=== PATIENT | male | born 1975 | race Caucasian/White ===

== ENCOUNTER 2018-01-11 11:33 | Inpatient (IN) | payer BC ==
[~2018-01-11] VITALS: Ht 190.5 cm; Wt 110.8 kg
[2018-01-11] VITALS (8 sets, daily range): BP systolic 105–173; BP diastolic 64–94
[~2018-01-11 11:33] MED LIST: AMLO10TA6 PO; BYSTOLIC10 MG PO; HYDR-971 PO; IBUP-1027 PO; OMEP20TA63 PO; SULF1TAB24 PO
[2018-01-11 12:28] LABS: BILIRUBIN,URINE NEGATIVE (NEG); CLARITY,URINE CLEAR; COLOR,URINE YELLOW; NITRITE,URINE NEGATIVE (NEG); PH,URINE 5.5; PROTEIN,URINE NEGATIVE (NEG-TRACE)
[2018-01-11 12:31] LABS: BARBITURATES NEG (NEG); BENZODIAZEPINES NEG (NEG); CANNABINOIDS POS (NEG); COCAINE NEG (NEG); METHADONE NEG (NEG); OPIATES NEG (NEG); PHENCYCLIDINE NEG (NEG)
[2018-01-11 12:34] LABS: BASO # 0.2 x10^3/uL (0.0-0.2); BASO % 2 % (0-3); EOS # 0.1 x10^3/uL (0.0-0.7); EOS % 1 % (0-3); HEMATOCRIT 36.7 % (39.0-53.0); LYMPH # 1.3 x10^3/uL (1.0-4.8); LYMPH % 13 % (24-48); MEAN CORPUSCULAR VOLUME 94 fL (79-100); MONO # 0.5 x10^3/uL (0.0-1.1); MONO % 5 % (0-9); NEUT # 8.4 x10^3uL (1.8-7.7); NEUT % 81 % (31-73); PLATELET COUNT 297 x10^3/uL (140-400); RED BLOOD COUNT 3.89 x10^6/uL (4.30-5.70); WHITE BLOOD COUNT 10.5 x10^3/uL (4.0-11.0)
[2018-01-11 12:42] LABS: BACTERIA,URINE 0 /HPF (0-FEW)
[2018-01-11 12:43] LABS: AMPHETAMINE/METHAMPHETAMINE NEG (NEG)
[2018-01-11 12:47] LABS: CALCIUM 8.5 mg/dL (8.5-10.1); CREATININE 0.9 mg/dL (0.7-1.3); GFR 92.1; POTASSIUM 4.3 mmol/L (3.5-5.1)
[2018-01-11 12:52] LABS: ALBUMIN 2.9 g/dL (3.4-5.0); ALBUMIN/GLOBULIN RATIO 0.8 (1.0-1.7); TOTAL BILIRUBIN 1.5 mg/dL (0.2-1.0); TOTAL PROTEIN 6.4 g/dL (6.4-8.2)
[2018-01-11 12:57] LABS: HEMOGLOBIN 11.9 g/dL (13.0-17.5)
[2018-01-11 12:58] LABS: MEAN CORPUSCULAR HEMOGLOBIN 31 pg (25-35); MEAN CORPUSCULAR HGB CONC 32 g/dL (31-37)
[2018-01-11] MEDS ORDERED: IV DEXTROSE 5% - 0.9 % NACL 1,000 ML IV ONE (13:00)
--- NOTE | 2018-01-11 13:00 | RAD ---
PQRS Compliance Statement: One or more of the following individualized dose reduction techniques were utilized for this examination: 1. Automated exposure control 2. Adjustment of the mA and/or kV according to patient size 3. Use of iterative reconstruction technique CT HEAD WITHOUT CONTRAST History: audible/ visual hallucinations Comparison: None. Procedure: Axial images are obtained of the head from the skull base through the vertex without IV contrast. Findings: The ventricles and sulci are normal for the patient's age. No mass-effect, midline shift, hemorrhage, extra-axial fluid collection, or obvious acute infarction is identified. Basilar cisterns are patent. Bone windows demonstrate no acute calvarial abnormality. Mild mucosal thickening inferior left maxillary sinus. The other visualized paranasal sinuses are clear. Mastoid air cells are well aerated. IMPRESSION: No acute intracranial abnormality. Electronically signed by: Richard Alcaraz MD (01/11/2018 12:56 PM) [facility]
--- NOTE | 2018-01-11 13:09 | RAD ---
CHEST PA LATERAL History: AMS. chest pain Comparison: None. Findings: Motion artifact on the lateral view. The left costophrenic angle is excluded on the frontal view. The cardiomediastinal silhouette is normal. Pulmonary vasculature is engorged. There is small interstitial opacity in the right midlung. No pleural effusion or pneumothorax is seen. There is no acute bone abnormality. IMPRESSION: 1. Right midlung interstitial opacity. 2. Mild pulmonary vascular congestion. Electronically signed by: Rihcard Alcaraz MD (01/11/2018 1:05 PM) [facility]
--- NOTE | 2018-01-11 13:17 | EKG ---
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
[2018-01-11] MEDS ORDERED: IV NORMAL SALINE 1000ML BAG 1,000 ML IV ONE ×2 (13:30)
[2018-01-11] MEDS ORDERED: ASPIRIN CHEWABLE 81 MG TABLET. PO ONE (13:45)
--- NOTE | 2018-01-11 16:16 | EKG ---
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
[2018-01-11] MEDS: MULTIVIT INFUSN,ADULT 4,VIT K 10 ML, THIAMINE INJ 100 MG, FOLIC ACID INJ 1 MG in IV NOR... IV SCH (16:31)
[2018-01-11] MEDS ORDERED: DEXMEDETOMIDINE 200 MCG in IV NORMAL SALINE 50ML 48 ML IV PRN ×2 (16:45→18:38)
[2018-01-11] MEDS ORDERED: ATROPINE 0.5 MG/5 ML DISP.SYRINGE. IV PRN (16:45)
[2018-01-11] MEDS ORDERED: IV NORMAL SALINE 500ML BAG 500 ML IV PRN (16:45)
--- NOTE | 2018-01-11 17:46 | HP ---
ADMIT DATE: 01/11/2018 CHIEF COMPLAINT: Mental status change. HISTORY OF PRESENT ILLNESS: The patient is a pleasant middle-aged white male who apparently has been drinking a fifth of whiskey a day for the past few weeks. He presented to the ER for evaluation. He is having hallucinations. He is also noted to have an anion gap, metabolic acidosis consistent with DKA. He also has a bump in his troponin. I have discussed the case with the ER physician. We are going to admit the patient to the ICU and consult Cardiology. Give him alcohol withdrawal protocol and DKA protocol. PAST MEDICAL HISTORY: Probable alcoholism, anxiety, GERD, hypertension, knee replacement, neck surgery, wisdom teeth extraction. ALLERGIES: None. FAMILY HISTORY: Coronary disease. SOCIAL HISTORY: He drinks. I am not sure if he smokes or take drugs. MEDICATIONS: Reviewed, please refer to the MRAD. REVIEW OF SYSTEMS: Unable to obtain. The patient is way too confused. PHYSICAL EXAMINATION: VITAL SIGNS: Temperature afebrile, pulse 83, respirations 28, blood pressure 147/92. GENERAL: He is alert, but very confused, mumbling. HEART: Normal S1, S2, tachycardic at times. LUNGS: Clear. ABDOMEN: Soft and obese. EXTREMITIES: Trace edema. SKIN: He is very diaphoretic. ENDOCRINE: No thyromegaly. LYMPHATICS: No cervical nodes. HEMATOPOIETIC: No bruising. LABORATORY DATA: White count 10, hemoglobin 12, platelets 297. Electrolytes: Sodium 129, potassium 4.3, chloride 91, bicarbonate 20, BUN 7, creatinine 0.9. Glucose 416, we have got it down to 349 now after some insulin. Troponin 0.089. AST is high at 44 consistent with his drinking issues. Albumin low at 2.9. EKG shows sinus rhythm with subtle ST changes. Chest x-ray: Right mid lung interstitial opacity, mild pulmonary vascular congestion. ASSESSMENT AND PLAN: Diabetic ketoacidosis, alcohol withdrawal and possible acute myocardial infarction with possible heart failure. The patient will be admitted. We will start alcohol withdrawal protocol and DKA protocol. ICU monitoring. Consult cardiology. Serial enzymes, serial EKGs. Home meds. PROGNOSIS: Guarded. DREA SORENSON DO DR: IBETH/romi JOB#: [id number] / [id number]
[2018-01-11] MEDS: HALOPERIDOL LACTATE 5 MG/ML VIAL. IVP PRN (18:14)
[2018-01-11] MEDS ORDERED: diphenhydrAMINE 50 MG/ML VIAL IVP PRN (18:15)
[2018-01-11] MEDS ORDERED: LORazepam 1 MG TABLET PO PRN ×2 (18:15)
[2018-01-11] MEDS ORDERED: PROPOFOL 100 ML IV ONE (18:43)
[2018-01-11] MEDS ORDERED: SUCCINYLCHOLINE 200 MG/10 ML VIAL. ONE ×2 (18:44→19:00)
[2018-01-11] MEDS ORDERED: OLANZapine IM 10 MG VIAL. IM ONE (18:45)
[2018-01-11] MEDS ORDERED: MORPHINE SULFATE 2 MG/ML VIAL. IV PRN (18:45)
[2018-01-11] MEDS ORDERED: MORPHINE SULFATE 4 MG/ML VIAL. IV PRN (18:45)
[2018-01-11] MEDS ORDERED: PROPOFOL 100 ML IV PRN ×2 (18:45→19:00)
[2018-01-11] MEDS ORDERED: fentaNYL PF VIAL 100 MCG/2 ML VIAL IV PRN ×2 (18:45)
[2018-01-11] MEDS ORDERED: HYDROmorphone 2 MG/ML VIAL IV PRN ×2 (18:45)
[2018-01-11] MEDS ORDERED: EPINEPHrine SYRINGE 1 MG/10 ML SYRINGE ONE ×2 (18:56→19:00)
[2018-01-11] MEDS ORDERED: PROPOFOL 10 MG/ML (100ML) VIAL. IV ONE (19:00)
[2018-01-11] MEDS ORDERED: VECURONIUM BOLUS 10 MG VIAL. IV ONE ×2 (19:00→19:02)
[2018-01-11 19:41] LABS: BASE EXCESS ABG -5 mmol/L (-3-3); HCO3 ABG 24 mmol/L (21-28); PO2 ABG 86 mmHg (75-108); SAT O2 ABG 95 % (92-99)
[2018-01-11] MEDS ORDERED: PIP/TAZO PER PHARMACY MC PRN (20:15)
--- NOTE | 2018-01-11 20:50 | RAD ---
KUB, PORTABLE CHEST 1V Clinical Indication: OG PLACEMENT, post intubation Comparison: Two-view chest, earlier same day. Findings: There is endotracheal tube, tip is at the level of the clavicles. Enteric tube extends into the stomach, tip is outside of [id number]. There is a paucity of bowel gas in the upper abdomen, decreasing sensitivity. The lower abdomen is not imaged. Cardiac size is normal. Pulmonary vascular congestion has worsened. There are new right suprahilar and left infrahilar airspace opacities. There are low lung volumes. No pleural effusion or pneumothorax is appreciated. IMPRESSION: 1. Endotracheal and enteric tubes in appropriate position. 2. Interval worsening of pulmonary vascular congestion and new right suprahilar and left infrahilar airspace opacities. Electronically signed by: Richard Alcaraz MD (01/11/2018 8:47 PM) [facility]
--- NOTE | 2018-01-11 20:50 | RAD ---
KUB, PORTABLE CHEST 1V Clinical Indication: OG PLACEMENT, post intubation Comparison: Two-view chest, earlier same day. Findings: There is endotracheal tube, tip is at the level of the clavicles. Enteric tube extends into the stomach, tip is outside of [id number]. There is a paucity of bowel gas in the upper abdomen, decreasing sensitivity. The lower abdomen is not imaged. Cardiac size is normal. Pulmonary vascular congestion has worsened. There are new right suprahilar and left infrahilar airspace opacities. There are low lung volumes. No pleural effusion or pneumothorax is appreciated. IMPRESSION: 1. Endotracheal and enteric tubes in appropriate position. 2. Interval worsening of pulmonary vascular congestion and new right suprahilar and left infrahilar airspace opacities. Electronically signed by: Richard Alcaraz MD (01/11/2018 8:47 PM) [facility]
[2018-01-11] MEDS ORDERED: VANCOMYCIN 2 GM in IV NORMAL SALINE 500ML BAG 500 ML IV ONE (21:00)
[2018-01-11] MEDS ORDERED: DEXTROSE 50% 25 GM / 50ML DISP.SYRIN. IV PRN (21:00)
[2018-01-11 21:18] LABS: FIO2 ABG 100; PCO2 ABG 62 mmHg (35-46)
[2018-01-11 21:49] LABS: ALBUMIN 2.7 g/dL (3.4-5.0); ALBUMIN/GLOBULIN RATIO 0.8 (1.0-1.7); CALCIUM 7.7 mg/dL (8.5-10.1); CREATININE 0.8 mg/dL (0.7-1.3); GFR 105.5; MAGNESIUM 1.5 mg/dL (1.8-2.4); PHOSPHORUS 2.6 mg/dL (2.6-4.7); POTASSIUM 4.3 mmol/L (3.5-5.1); TOTAL BILIRUBIN 0.9 mg/dL (0.2-1.0)
[2018-01-11] MEDS: PIPERACILLIN/TAZOBACTAM 4.5 GM in IV NORMAL SALINE 100ML 100 ML IV SCH (23:31)
[2018-01-11] MEDS: IV NORMAL SALINE 1000ML BAG 1,000 ML IV SCH (23:33)
[2018-01-11] MEDS: ACETAMINOPHEN 650 MG/20.3 ML SOLUTION. PEG PRN (23:39)
[2018-01-12] VITALS (23 sets, daily range): BP systolic 80–143; BP diastolic 49–89
[2018-01-12] MEDS: INSULIN LISPRO 300 UNITS/3 ML INSULN.PEN. SQ SCH ×4 (00:08→17:25)
[2018-01-12] MEDS ORDERED: MAGNESIUM SULFATE 2GM 50 ML IV ONE (01:00)
[2018-01-12] MEDS: MIDAZOLAM 100mg/100ml NS BAG 100 ML IV PRN ×3 (01:15→17:49)
--- NOTE | 2018-01-12 03:37 | RAD ---
EXAM: AP View of the chest DATE: 01/12/2018 3:04 AM INDICATION: Abdominal distension/pain. Respiratory distress COMPARISON: 01/11/2018 FINDINGS: ET tube tip terminates approximately 4 cm above the darius. Heart is mildly enlarged. Aorta is tortuous. Superior mediastinal widening is stable. Bilateral parenchymal airspace opacities diffusely but most prominent in the perihilar and left lung base region with small bilateral pleural effusions may represent pulmonary edema. No pneumothorax. Enteric tube tip projects over the body/antrum of the stomach. No abnormal small or large bowel dilatation. Moderate colonic stool content. No abnormal soft tissue mass effect. Evaluation for free intraperitoneal gas is limited on this supine exam. IMPRESSION: Small bilateral pleural effusions with parenchymal opacities, suspicious for pulmonary edema, stable to borderline progressed. ET tube and enteric tube as above. Electronically signed by: Lencho Cortez MD (01/12/2018 3:34 AM) [facility]
[2018-01-12] MEDS ORDERED: MULT1TAB52 PO (03:44)
[2018-01-12] MEDS ORDERED: [UNRECOGNIZED DRUG - OTHER] (03:44)
[2018-01-12] MEDS ORDERED: DULO20CA PO (03:44)
[2018-01-12] MEDS ORDERED: NEO/5DRO OD (03:44)
[2018-01-12] MEDS ORDERED: TRAM50TA PO (03:44)
[2018-01-12] MEDS ORDERED: BYSTOLIC20 MG PO (03:44)
[2018-01-12] MEDS ORDERED: LANS30CA PO (03:44)
[2018-01-12] MEDS ORDERED: LOSA25TA5 PO (03:44)
[2018-01-12] MEDS ORDERED: MAGN400C PO (03:44)
[2018-01-12] MEDS ORDERED: VALA1000 PO (03:44)
[2018-01-12] MEDS ORDERED: TIZA4TAB PO (03:44)
[2018-01-12] MEDS ORDERED: CALC500T54 PO (03:44)
[2018-01-12] MEDS ORDERED: IV NORMAL SALINE 1000ML BAG 1,000 ML IV ONE (04:30)
[2018-01-12 04:44] LABS: BASO % 0 % (0-3); EOS # 0.1 x10^3/uL (0.0-0.7); EOS % 1 % (0-3); HEMATOCRIT 39.7 % (39.0-53.0); HEMOGLOBIN 13.9 g/dL (13.0-17.5); LYMPH # 0.8 x10^3/uL (1.0-4.8); LYMPH % 15 % (24-48); MEAN CORPUSCULAR HEMOGLOBIN 33 pg (25-35); MEAN CORPUSCULAR HGB CONC 35 g/dL (31-37); MEAN CORPUSCULAR VOLUME 95 fL (79-100); MONO # 0.2 x10^3/uL (0.0-1.1); MONO % 4 % (0-9); NEUT # 4.2 x10^3uL (1.8-7.7); NEUT % 79 % (31-73); PLATELET COUNT 232 x10^3/uL (140-400); RED BLOOD COUNT 4.17 x10^6/uL (4.30-5.70); RED CELL DISTRIBUTION WIDTH 13.4 % (11.5-14.5); WHITE BLOOD COUNT 5.3 x10^3/uL (4.0-11.0)
[2018-01-12 05:02] LABS: CREATININE 1.4 mg/dL (0.7-1.3); GFR 55.3; MAGNESIUM 1.9 mg/dL (1.8-2.4); POTASSIUM 4.4 mmol/L (3.5-5.1)
[2018-01-12] MEDS: PIPERACILLIN/TAZOBACTAM 4.5 GM in IV NORMAL SALINE 100ML 100 ML IV SCH ×3 (05:36→17:14)
[2018-01-12] MEDS: DEXMEDETOMIDINE 200 MCG in IV NORMAL SALINE 50ML 48 ML IV PRN ×12 (05:36→23:11)
[2018-01-12] MEDS: ACETAMINOPHEN 650 MG/20.3 ML SOLUTION. PEG PRN ×2 (05:37→12:34)
[2018-01-12 06:05] LABS: CHOLESTEROL 306 mg/dL (0-200)
[2018-01-12 06:33] LABS: TRIGLYCERIDES 1547 mg/dL (0-150); VLDLC 309 mg/dL (0-40)
[2018-01-12] MEDS: VANCOMYCIN PER PHARMACY MC PRN ×2 (06:33→11:47)
--- NOTE | 2018-01-12 06:52 | PDOC ---
Provider Note Provider Note [id number] acute resp fail ams sepsis abnl cxr abx, see orders JAMES MAC MD Jan 12, 2018 06:52
[2018-01-12] MEDS ORDERED: IV NORMAL SALINE 500ML BAG 500 ML IV ONE (07:00)
[2018-01-12] MEDS: IV NORMAL SALINE 1000ML BAG 1,000 ML IV SCH ×2 (07:25→17:14)
[2018-01-12] MEDS: IPRATRPIUM/ALBUTEROL 0.5/2.5MG 3 ML NEBU. NEB SCH ×4 (07:41→19:48)
--- NOTE | 2018-01-12 07:50 | CONS ---
DATE OF CONSULTATION: 01/12/2018 I was asked to see this 42-year-old gentleman for acute respiratory failure. HISTORY OF PRESENT ILLNESS: The patient is currently on the ventilator and is sedated. All of the information was obtained from nursing staff and chart. He has chronic back pain, went to chiropractor and since then, the patient became very agitated. His father reported heavy alcohol use. The patient has depression and anxiety. He has had hallucination. He was transferred to ICU. He was very combative. He was intubated for airway protection. Currently, he is on the ventilator. He has small amount of ET tube secretion, his temperature is up to 102.9. The last time, I did start him on vancomycin and Zosyn and ID is consulted. PAST MEDICAL HISTORY: Anxiety, gastroesophageal reflux disease, hypertension. The patient has had low blood pressure. He had 2 liters of IV fluids in the Emergency Room. Overnight, he had another liter, his blood pressure this morning 79/50. I am giving him another 500 mL of normal saline. His blood sugar on admission was in 500s. ALLERGIES: No known drug allergies. MEDICATIONS: Currently he is on Versed, fentanyl drip, Precedex drip, vancomycin, Zosyn and insulin. SOCIAL HISTORY: Positive for heavy alcohol use. FAMILY HISTORY: Hypertension. REVIEW OF SYSTEMS: As mentioned as above, I have discussed the patient with RN and RT, other systems otherwise negative. PHYSICAL EXAMINATION: GENERAL: This is an overweight gentleman. VITAL SIGNS: His O2 saturation is 95%, respiratory rate 23, heart rate 94, blood pressure 101/59, temperature 102.9. HEENT: Normocephalic, atraumatic. Pupils equal, round, reactive to light. Nose is clear. He is orally intubated. NECK: There is no JVD, lymphadenopathy or thyromegaly. CARDIOVASCULAR: Regular rate and rhythm. PMI is nondisplaced. CHEST: On inspection, he appears tachypneic. LUNGS: There is bibasilar crackles, dullness at the bases. ABDOMEN: Distended, diminished bowel sounds. EXTREMITIES: There is no edema. LYMPHATICS: There is no lymphadenopathy. NEUROLOGIC: He is sedated. SKIN: Warm. LABORATORY DATA: I reviewed the following lab data. WBC 5.3, hemoglobin 13.9, platelet 232. Sodium 137, potassium 4.4, chloride 103, CO2 23. Glucose 266 this morning, on admission it was about 500. His BNP is 2253, triglycerides 1547, cholesterol 306. Troponin 0.089. AST 37, ALT 36. Urine drug screen was negative. Alcohol level less than 10. UA was negative. Chest x-ray showed ET tube is in good position, small bilateral pleural effusion and infiltrate was noted. His CT of the head did not show any acute abnormalities. ABG last night, pH 7.2, pCO2 62, pO2 86 on assist control rate of 18, tidal volume 550, PEEP of 5, FiO2 100%. IMPRESSION: 1. Acute respiratory failure. 2. Abnormal chest x-ray? congestive heart failure versus pneumonia versus others. 3. Sepsis ? source. 4. Severe agitation, could be secondary to alcohol withdrawal versus sepsis versus others. 5. Hyperglycemia? etiology. 6. Elevated BNP and troponin ? etiology. Could be secondary to increased work of breathing. 7. History of alcohol abuse. 8. Obesity? obstructive sleep apnea-hypopnea syndrome. 9. Alcohol withdrawal. PLAN AND RECOMMENDATION: 1. Titrate FiO2 to keep O2 saturation 94%. 2. Repeat ABG. Change vent setting per ABG. 3. Start bronchodilator. 4. Agree with Cardiology consultation. 5. Agree with ID consultation. I did start the patient on vancomycin and Zosyn. blood culture was done before antibiotics. 6. Check nasal swab for influenza A and B and urine legionella and Strep pneumoniae antigen. 7. Start Pepcid for stress ulcer prophylaxis. 8. SCDs. We will start him on Lovenox. He may require LP. We will await for Infectious Disease to evaluate the patient. 9. Continue ventilator support until the patient is more stable. 10. I will give him 500 mL of normal saline. 11. Echocardiogram per Cardiology. 12. Control blood sugar. 13. The findings and recommendations were discussed with RN. Thank you very much for allowing me to participate in care of this very nice gentleman. JAMES MAC M.D. : FELIPE/romi JOB#: [id number] / [id number] OL
[2018-01-12 08:15] LABS: INFLUENZA A PATIENT NEGATIVE (NEGATIVE); INFLUENZA B PATIENT NEGATIVE (NEGATIVE)
[2018-01-12] MEDS: FAMOTIDINE 20 MG/2 ML VIAL IVP SCH ×2 (08:45→20:21)
[2018-01-12] MEDS: MULTIVIT INFUSN,ADULT 4,VIT K 10 ML, THIAMINE INJ 100 MG, FOLIC ACID INJ 1 MG in IV NOR... IV SCH (08:45)
[2018-01-12 08:59] LABS: BASE EXCESS ABG -5 mmol/L (-3-3); CORRECTED PCO2 ABG 44 mmHg; CORRECTED PH ABG 7.29; CORRECTED PO2 ABG 100 mmHg; HCO3 ABG 20 mmol/L (21-28); PCO2 ABG 40 mmHg (35-46); PO2 ABG 87 mmHg (75-108); SAT O2 ABG 97 % (92-99)
[2018-01-12] MEDS ORDERED: VANCOMYCIN 1.5 GM in IV NORMAL SALINE 500ML BAG 500 ML IV SCH (09:00)
[2018-01-12 09:01] LABS: FIO2 ABG 50
--- NOTE | 2018-01-12 09:38 | PDOC ---
Infectious Disease Note Vital Sign Vital Signs Vital Signs Date Time Temp Pulse Resp B/P (MAP) Pulse Ox O2 Delivery O2 Flow Rate FiO2 01/12/18 08:00 90 26 92/56 (68) 98 Ventilator 01/12/18 07:00 102.5 102.5 Labs Lab Laboratory Tests Test 01/11/18 12:10 01/11/18 14:27 01/11/18 15:12 01/11/18 15:17 White Blood Count 10.5 x10^3/uL (4.0-11.0) Red Blood Count 3.89 x10^6/uL (4.30-5.70) Hemoglobin 11.9 g/dL (13.0-17.5) Hematocrit 36.7 % (39.0-53.0) Mean Corpuscular Volume 94 fL (79-100) Mean Corpuscular Hemoglobin 31 pg (25-35) Mean Corpuscular Hemoglobin Concent 32 g/dL (31-37) Red Cell Distribution Width 13.0 % (11.5-14.5) Platelet Count 297 x10^3/uL (140-400) Neutrophils (%) (Auto) 81 % (31-73) Lymphocytes (%) (Auto) 13 % (24-48) Monocytes (%) (Auto) 5 % (0-9) Eosinophils (%) (Auto) 1 % (0-3) Basophils (%) (Auto) 2 % (0-3) Neutrophils # (Auto) 8.4 x10^3uL (1.8-7.7) Lymphocytes # (Auto) 1.3 x10^3/uL (1.0-4.8) Monocytes # (Auto) 0.5 x10^3/uL (0.0-1.1) Eosinophils # (Auto) 0.1 x10^3/uL (0.0-0.7) Basophils # (Auto) 0.2 x10^3/uL (0.0-0.2) Urine Collection Type Unknown Urine Color Yellow Urine Clarity Clear Urine pH 5.5 Urine Specific [place] 1.020 Urine Protein Negative mg/dL (NEG-TRACE) Urine Glucose (UA) >=1000 mg/dL (NEG) Urine Ketones (Stick) >=80 mg/dL (NEG) Urine Blood Trace (NEG) Urine Nitrite Negative (NEG) Urine Bilirubin Negative (NEG) Urine Urobilinogen Dipstick 1.0 mg/dL (0.2 mg/dL) Urine Leukocyte Esterase Negative (NEG) Urine RBC 6-10 /HPF (0-2) Urine WBC 1-4 /HPF (0-4) Urine Bacteria 0 /HPF (0-FEW) Sodium Level 129 mmol/L (136-145) Potassium Level 4.3 mmol/L (3.5-5.1) Chloride Level 91 mmol/L (98-107) Carbon Dioxide Level 20 mmol/L (21-32) Anion Gap 18 (6-14) Blood Urea Nitrogen 7 mg/dL (8-26) Creatinine 0.9 mg/dL (0.7-1.3) Estimated GFR (Cockcroft-Gault) 92.1 BUN/Creatinine Ratio 8 (6-20) Glucose Level 416 mg/dL (70-99) Calcium Level 8.5 mg/dL (8.5-10.1) Total Bilirubin 1.5 mg/dL (0.2-1.0) Aspartate Amino Transf (AST/SGOT) 44 U/L (15-37) Alanine Aminotransferase (ALT/SGPT) 47 U/L (16-63) Alkaline Phosphatase 105 U/L (46-116) Troponin I Quantitative 0.089 ng/mL (0.000-0.055) Total Protein 6.4 g/dL (6.4-8.2) Albumin 2.9 g/dL (3.4-5.0) Albumin/Globulin Ratio 0.8 (1.0-1.7) Urine Opiates Screen Neg (NEG) Urine Methadone Screen Neg (NEG) Urine Barbiturates Neg (NEG) Urine Phencyclidine Screen Neg (NEG) Urine Amphetamine/Methamphetamine Neg (NEG) Urine Benzodiazepines Screen Neg (NEG) Urine Cocaine Screen Neg (NEG) Urine Cannabinoids Screen Pos (NEG) Ethyl Alcohol Level < 10 mg/dL (0-10) Urine Ethyl Alcohol Neg (NEG) Glucose (Fingerstick) 337 mg/dL (70-99) 349 mg/dL (70-99) Bedside Troponin I 0.06 ng/ml (<0.08) Test 01/11/18 19:09 01/11/18 19:33 01/11/18 20:00 01/11/18 23:50 O2 Saturation 95 % (92-99) Arterial Blood pH 7.20 (7.35-7.45) Arterial Blood pCO2 at Patient Temp 62 mmHg (35-46) Arterial Blood pO2 at Patient Temp 86 mmHg (75-108) Arterial Blood HCO3 24 mmol/L (21-28) Arterial Blood Base Excess -5 mmol/L (-3-3) FiO2 100 Glucose (Fingerstick) 272 mg/dL (70-99) Sodium Level 133 mmol/L (136-145) Potassium Level 4.3 mmol/L (3.5-5.1) Chloride Level 98 mmol/L (98-107) Carbon Dioxide Level 25 mmol/L (21-32) Anion Gap 10 (6-14) Blood Urea Nitrogen 4 mg/dL (8-26) Creatinine 0.8 mg/dL (0.7-1.3) Estimated GFR (Cockcroft-Gault) 105.5 BUN/Creatinine Ratio 5 (6-20) Glucose Level 347 mg/dL (70-99) Calcium Level 7.7 mg/dL (8.5-10.1) Phosphorus Level 2.6 mg/dL (2.6-4.7) Magnesium Level 1.5 mg/dL (1.8-2.4) Total Bilirubin 0.9 mg/dL (0.2-1.0) Aspartate Amino Transf (AST/SGOT) 37 U/L (15-37) Alanine Aminotransferase (ALT/SGPT) 36 U/L (16-63) Alkaline Phosphatase 91 U/L (46-116) Total Protein 6.0 g/dL (6.4-8.2) Albumin 2.7 g/dL (3.4-5.0) Albumin/Globulin Ratio 0.8 (1.0-1.7) Lactic Acid Level 3.1 mmol/L (0.4-2.0) Test 01/12/18 00:07 01/12/18 04:00 01/12/18 04:30 01/12/18 05:00 Glucose (Fingerstick) 227 mg/dL (70-99) Sodium Level 137 mmol/L (136-145) Potassium Level 4.4 mmol/L (3.5-5.1) Chloride Level 103 mmol/L (98-107) Carbon Dioxide Level 23 mmol/L (21-32) Anion Gap 11 (6-14) Blood Urea Nitrogen 6 mg/dL (8-26) Creatinine 1.4 mg/dL (0.7-1.3) Estimated GFR (Cockcroft-Gault) 55.3 Glucose Level 266 mg/dL (70-99) Lactic Acid Level 0.4 mmol/L (0.4-2.0) Calcium Level 8.0 mg/dL (8.5-10.1) Phosphorus Level 3.0 mg/dL (2.6-4.7) Magnesium Level 1.9 mg/dL (1.8-2.4) Troponin I Quantitative 0.110 ng/mL (0.000-0.055) White Blood Count 5.3 x10^3/uL (4.0-11.0) Red Blood Count 4.17 x10^6/uL (4.30-5.70) Hemoglobin 13.9 g/dL (13.0-17.5) Hematocrit 39.7 % (39.0-53.0) Mean Corpuscular Volume 95 fL (79-100) Mean Corpuscular Hemoglobin 33 pg (25-35) Mean Corpuscular Hemoglobin Concent 35 g/dL (31-37) Red Cell Distribution Width 13.4 % (11.5-14.5) Platelet Count 232 x10^3/uL (140-400) Neutrophils (%) (Auto) 79 % (31-73) Lymphocytes (%) (Auto) 15 % (24-48) Monocytes (%) (Auto) 4 % (0-9) Eosinophils (%) (Auto) 1 % (0-3) Basophils (%) (Auto) 0 % (0-3) Neutrophils # (Auto) 4.2 x10^3uL (1.8-7.7) Lymphocytes # (Auto) 0.8 x10^3/uL (1.0-4.8) Monocytes # (Auto) 0.2 x10^3/uL (0.0-1.1) Eosinophils # (Auto) 0.1 x10^3/uL (0.0-0.7) Basophils # (Auto) 0.0 x10^3/uL (0.0-0.2) [id number]-Type Natriuretic Peptide 2253 pg/mL (0-124) Triglycerides Level 1547 mg/dL (0-150) Cholesterol Level 306 mg/dL (0-200) LDL Cholesterol, Calculated mg/dL (0-100) VLDL Cholesterol, Calculated 309 mg/dL (0-40) Non-HDL Cholesterol Calculated mg/dL (0-129) HDL Cholesterol mg/dL (40-60) Cholesterol/HDL Ratio Test 01/12/18 07:40 01/12/18 08:00 Influenza Type A Antigen Negative (NEGATIVE) Influenza Type B Antigen Negative (NEGATIVE) O2 Saturation 97 % (92-99) Arterial Blood pH 7.33 (7.35-7.45) Arterial Blood pH (Temp corrected) 7.29 Arterial Blood pCO2 at Patient Temp 40 mmHg (35-46) Arterial Blood pCO2 (Temp correct) 44 mmHg Arterial Blood pO2 at Patient Temp 87 mmHg (75-108) Arterial Blood pO2 (Temp corrected) 100 mmHg Arterial Blood HCO3 20 mmol/L (21-28) Arterial Blood Base Excess -5 mmol/L (-3-3) FiO2 50 Objective Assessment Fever Aspiration pneumonia Acute encephalopathy with hallucinations and behavior change Lactic acidosis, improved Heavy alcohol use Hyperglycemia Worsening back pain w/ urinary incontinence prior to admit and was scheduled for open MRI per his mom. h/o epidural abscess w/ neg cultures in August 2016. h/o MRSA Morbid obesity Plan Plan of Care vanc and Zosyn Sputum culture BC in process Monitor labs/temp/renal function closely D/w mother D/w RN Thank you [phone] Attending Co-Sign The patient was seen and interviewed as well as examined at the bedside. The chart was reviewed. The case was discussed. Agree with the plan of care. IMTIAZ MUELLER APRN Jan 12, 2018 09:38 ALAN KUMARI MD Jan 12, 2018 13:11
[2018-01-12] MEDS: GEMFIBROZIL 600 MG TABLET. PO SCH ×2 (10:00→16:22)
--- NOTE | 2018-01-12 10:11 | PDOC ---
PROGRESS NOTES Chief Complaint Chief Complaint 1. Acute respiratory failure. 2. etoh intoxication versus dependence, not protecting airway hence intubated at the emergency room 2. Abnormal chest x-ray? congestive heart failure versus pneumonia versus others. 3. Sepsis - criteria 4. Severe agitation, could be secondary to alcohol withdrawal versus sepsis versus others. 5. Hyperglycemia, with HYPERTRIGLYCERIDEMIA 6. Elevated BNP and troponin ? etiology. Could be secondary to increased work of breathing. 7. History of alcohol abuse. 8. Obesity BMI 39 - poss obstructive sleep apnea-hypopnea syndrome. History of Present Illness History of Present Illness Father admitted to alcohol use by the pt Intubated sedated Very big marquis, BMI 39 Creatinine 1.4 BNP 2200, some element of pulmonary edema on chest x-ray Triglycerides are high at 1500 Ketonuria on UA Positive cannabinoids on UDS PLAN: Vent bundle I did add heparin SQ for DVT prophylaxis Already on PPI IV nutrition consult for tube feeds Already has SCDs Avoid nephrotoxins - creat 1,4 I will consider infectious disease consult-fulfill sepsis criteria We will need alcohol rehabilitation referrals once extubated I did start some gemfibrozil for the severe hypertriglyceridemia at 1500 in this obese marquis Will need to stop cannabinoids Supportive care Further conditions pending course Vitals Vitals Vital Signs Date Time Temp Pulse Resp B/P (MAP) Pulse Ox O2 Delivery O2 Flow Rate FiO2 01/12/18 09:10 98 Ventilator 01/12/18 09:00 92 26 137/67 (90) 01/12/18 07:00 102.5 102.5 Physical Exam General: No acute distress Heart: Regular rate, No murmurs Lungs: Other (decrease breath sounds on the basis also secondary to increased AP diameter) Abdomen: Normal bowel sounds, Soft Extremities: No clubbing, No cyanosis, No edema, Normal pulses Skin: No rashes, No breakdown Labs LABS Laboratory Tests Test 01/11/18 12:10 01/11/18 14:27 01/11/18 15:12 01/11/18 15:17 White Blood Count 10.5 x10^3/uL (4.0-11.0) Red Blood Count 3.89 x10^6/uL (4.30-5.70) Hemoglobin 11.9 g/dL (13.0-17.5) Hematocrit 36.7 % (39.0-53.0) Mean Corpuscular Volume 94 fL (79-100) Mean Corpuscular Hemoglobin 31 pg (25-35) Mean Corpuscular Hemoglobin Concent 32 g/dL (31-37) Red Cell Distribution Width 13.0 % (11.5-14.5) Platelet Count 297 x10^3/uL (140-400) Neutrophils (%) (Auto) 81 % (31-73) Lymphocytes (%) (Auto) 13 % (24-48) Monocytes (%) (Auto) 5 % (0-9) Eosinophils (%) (Auto) 1 % (0-3) Basophils (%) (Auto) 2 % (0-3) Neutrophils # (Auto) 8.4 x10^3uL (1.8-7.7) Lymphocytes # (Auto) 1.3 x10^3/uL (1.0-4.8) Monocytes # (Auto) 0.5 x10^3/uL (0.0-1.1) Eosinophils # (Auto) 0.1 x10^3/uL (0.0-0.7) Basophils # (Auto) 0.2 x10^3/uL (0.0-0.2) Urine Collection Type Unknown Urine Color Yellow Urine Clarity Clear Urine pH 5.5 Urine Specific [place] 1.020 Urine Protein Negative mg/dL (NEG-TRACE) Urine Glucose (UA) >=1000 mg/dL (NEG) Urine Ketones (Stick) >=80 mg/dL (NEG) Urine Blood Trace (NEG) Urine Nitrite Negative (NEG) Urine Bilirubin Negative (NEG) Urine Urobilinogen Dipstick 1.0 mg/dL (0.2 mg/dL) Urine Leukocyte Esterase Negative (NEG) Urine RBC 6-10 /HPF (0-2) Urine WBC 1-4 /HPF (0-4) Urine Bacteria 0 /HPF (0-FEW) Sodium Level 129 mmol/L (136-145) Potassium Level 4.3 mmol/L (3.5-5.1) Chloride Level 91 mmol/L (98-107) Carbon Dioxide Level 20 mmol/L (21-32) Anion Gap 18 (6-14) Blood Urea Nitrogen 7 mg/dL (8-26) Creatinine 0.9 mg/dL (0.7-1.3) Estimated GFR (Cockcroft-Gault) 92.1 BUN/Creatinine Ratio 8 (6-20) Glucose Level 416 mg/dL (70-99) Calcium Level 8.5 mg/dL (8.5-10.1) Total Bilirubin 1.5 mg/dL (0.2-1.0) Aspartate Amino Transf (AST/SGOT) 44 U/L (15-37) Alanine Aminotransferase (ALT/SGPT) 47 U/L (16-63) Alkaline Phosphatase 105 U/L (46-116) Troponin I Quantitative 0.089 ng/mL (0.000-0.055) Total Protein 6.4 g/dL (6.4-8.2) Albumin 2.9 g/dL (3.4-5.0) Albumin/Globulin Ratio 0.8 (1.0-1.7) Urine Opiates Screen Neg (NEG) Urine Methadone Screen Neg (NEG) Urine Barbiturates Neg (NEG) Urine Phencyclidine Screen Neg (NEG) Urine Amphetamine/Methamphetamine Neg (NEG) Urine Benzodiazepines Screen Neg (NEG) Urine Cocaine Screen Neg (NEG) Urine Cannabinoids Screen Pos (NEG) Ethyl Alcohol Level < 10 mg/dL (0-10) Urine Ethyl Alcohol Neg (NEG) Glucose (Fingerstick) 337 mg/dL (70-99) 349 mg/dL (70-99) Bedside Troponin I 0.06 ng/ml (<0.08) Test 01/11/18 19:09 01/11/18 19:33 01/11/18 20:00 01/11/18 23:50 O2 Saturation 95 % (92-99) Arterial Blood pH 7.20 (7.35-7.45) Arterial Blood pCO2 at Patient Temp 62 mmHg (35-46) Arterial Blood pO2 at Patient Temp 86 mmHg (75-108) Arterial Blood HCO3 24 mmol/L (21-28) Arterial Blood Base Excess -5 mmol/L (-3-3) FiO2 100 Glucose (Fingerstick) 272 mg/dL (70-99) Sodium Level 133 mmol/L (136-145) Potassium Level 4.3 mmol/L (3.5-5.1) Chloride Level 98 mmol/L (98-107) Carbon Dioxide Level 25 mmol/L (21-32) Anion Gap 10 (6-14) Blood Urea Nitrogen 4 mg/dL (8-26) Creatinine 0.8 mg/dL (0.7-1.3) Estimated GFR (Cockcroft-Gault) 105.5 BUN/Creatinine Ratio 5 (6-20) Glucose Level 347 mg/dL (70-99) Calcium Level 7.7 mg/dL (8.5-10.1) Phosphorus Level 2.6 mg/dL (2.6-4.7) Magnesium Level 1.5 mg/dL (1.8-2.4) Total Bilirubin 0.9 mg/dL (0.2-1.0) Aspartate Amino Transf (AST/SGOT) 37 U/L (15-37) Alanine Aminotransferase (ALT/SGPT) 36 U/L (16-63) Alkaline Phosphatase 91 U/L (46-116) Total Protein 6.0 g/dL (6.4-8.2) Albumin 2.7 g/dL (3.4-5.0) Albumin/Globulin Ratio 0.8 (1.0-1.7) Lactic Acid Level 3.1 mmol/L (0.4-2.0) Test 01/12/18 00:07 01/12/18 04:00 01/12/18 04:30 01/12/18 05:00 Glucose (Fingerstick) 227 mg/dL (70-99) Sodium Level 137 mmol/L (136-145) Potassium Level 4.4 mmol/L (3.5-5.1) Chloride Level 103 mmol/L (98-107) Carbon Dioxide Level 23 mmol/L (21-32) Anion Gap 11 (6-14) Blood Urea Nitrogen 6 mg/dL (8-26) Creatinine 1.4 mg/dL (0.7-1.3) Estimated GFR (Cockcroft-Gault) 55.3 Glucose Level 266 mg/dL (70-99) Lactic Acid Level 0.4 mmol/L (0.4-2.0) Calcium Level 8.0 mg/dL (8.5-10.1) Phosphorus Level 3.0 mg/dL (2.6-4.7) Magnesium Level 1.9 mg/dL (1.8-2.4) Troponin I Quantitative 0.110 ng/mL (0.000-0.055) White Blood Count 5.3 x10^3/uL (4.0-11.0) Red Blood Count 4.17 x10^6/uL (4.30-5.70) Hemoglobin 13.9 g/dL (13.0-17.5) Hematocrit 39.7 % (39.0-53.0) Mean Corpuscular Volume 95 fL (79-100) Mean Corpuscular Hemoglobin 33 pg (25-35) Mean Corpuscular Hemoglobin Concent 35 g/dL (31-37) Red Cell Distribution Width 13.4 % (11.5-14.5) Platelet Count 232 x10^3/uL (140-400) Neutrophils (%) (Auto) 79 % (31-73) Lymphocytes (%) (Auto) 15 % (24-48) Monocytes (%) (Auto) 4 % (0-9) Eosinophils (%) (Auto) 1 % (0-3) Basophils (%) (Auto) 0 % (0-3) Neutrophils # (Auto) 4.2 x10^3uL (1.8-7.7) Lymphocytes # (Auto) 0.8 x10^3/uL (1.0-4.8) Monocytes # (Auto) 0.2 x10^3/uL (0.0-1.1) Eosinophils # (Auto) 0.1 x10^3/uL (0.0-0.7) Basophils # (Auto) 0.0 x10^3/uL (0.0-0.2) RE-Iqm-[id number]-Type Natriuretic Peptide 2253 pg/mL (0-124) Triglycerides Level 1547 mg/dL (0-150) Cholesterol Level 306 mg/dL (0-200) LDL Cholesterol, Calculated mg/dL (0-100) VLDL Cholesterol, Calculated 309 mg/dL (0-40) Non-HDL Cholesterol Calculated mg/dL (0-129) HDL Cholesterol mg/dL (40-60) Cholesterol/HDL Ratio Test 01/12/18 07:40 01/12/18 08:00 Influenza Type A Antigen Negative (NEGATIVE) Influenza Type B Antigen Negative (NEGATIVE) O2 Saturation 97 % (92-99) Arterial Blood pH 7.33 (7.35-7.45) Arterial Blood pH (Temp corrected) 7.29 Arterial Blood pCO2 at Patient Temp 40 mmHg (35-46) Arterial Blood pCO2 (Temp correct) 44 mmHg Arterial Blood pO2 at Patient Temp 87 mmHg (75-108) Arterial Blood pO2 (Temp corrected) 100 mmHg Arterial Blood HCO3 20 mmol/L (21-28) Arterial Blood Base Excess -5 mmol/L (-3-3) FiO2 50 Review of Systems Review of Systems Intubated sedated Assessment and Plan Assessmemt and Plan Problems Medical Problems: (1) Diabetic keto-acidosis Status: Acute (2) Hyperglycemia due to type 2 diabetes mellitus Status: Acute (3) Metabolic acidemia Status: Acute (4) Metabolic encephalopathy Status: Acute Comment Review of Relevant I have reviewed the following items franklyn (where applicable) has been applied. Labs Laboratory Tests Test 01/11/18 12:10 01/11/18 14:27 01/11/18 15:12 01/11/18 15:17 White Blood Count 10.5 x10^3/uL (4.0-11.0) Red Blood Count 3.89 x10^6/uL (4.30-5.70) Hemoglobin 11.9 g/dL (13.0-17.5) Hematocrit 36.7 % (39.0-53.0) Mean Corpuscular Volume 94 fL (79-100) Mean Corpuscular Hemoglobin 31 pg (25-35) Mean Corpuscular Hemoglobin Concent 32 g/dL (31-37) Red Cell Distribution Width 13.0 % (11.5-14.5) Platelet Count 297 x10^3/uL (140-400) Neutrophils (%) (Auto) 81 % (31-73) Lymphocytes (%) (Auto) 13 % (24-48) Monocytes (%) (Auto) 5 % (0-9) Eosinophils (%) (Auto) 1 % (0-3) Basophils (%) (Auto) 2 % (0-3) Neutrophils # (Auto) 8.4 x10^3uL (1.8-7.7) Lymphocytes # (Auto) 1.3 x10^3/uL (1.0-4.8) Monocytes # (Auto) 0.5 x10^3/uL (0.0-1.1) Eosinophils # (Auto) 0.1 x10^3/uL (0.0-0.7) Basophils # (Auto) 0.2 x10^3/uL (0.0-0.2) Urine Collection Type Unknown Urine Color Yellow Urine Clarity Clear Urine pH 5.5 Urine Specific [place] 1.020 Urine Protein Negative mg/dL (NEG-TRACE) Urine Glucose (UA) >=1000 mg/dL (NEG) Urine Ketones (Stick) >=80 mg/dL (NEG) Urine Blood Trace (NEG) Urine Nitrite Negative (NEG) Urine Bilirubin Negative (NEG) Urine Urobilinogen Dipstick 1.0 mg/dL (0.2 mg/dL) Urine Leukocyte Esterase Negative (NEG) Urine RBC 6-10 /HPF (0-2) Urine WBC 1-4 /HPF (0-4) Urine Bacteria 0 /HPF (0-FEW) Sodium Level 129 mmol/L (136-145) Potassium Level 4.3 mmol/L (3.5-5.1) Chloride Level 91 mmol/L (98-107) Carbon Dioxide Level 20 mmol/L (21-32) Anion Gap 18 (6-14) Blood Urea Nitrogen 7 mg/dL (8-26) Creatinine 0.9 mg/dL (0.7-1.3) Estimated GFR (Cockcroft-Gault) 92.1 BUN/Creatinine Ratio 8 (6-20) Glucose Level 416 mg/dL (70-99) Calcium Level 8.5 mg/dL (8.5-10.1) Total Bilirubin 1.5 mg/dL (0.2-1.0) Aspartate Amino Transf (AST/SGOT) 44 U/L (15-37) Alanine Aminotransferase (ALT/SGPT) 47 U/L (16-63) Alkaline Phosphatase 105 U/L (46-116) Troponin I Quantitative 0.089 ng/mL (0.000-0.055) Total Protein 6.4 g/dL (6.4-8.2) Albumin 2.9 g/dL (3.4-5.0) Albumin/Globulin Ratio 0.8 (1.0-1.7) Urine Opiates Screen Neg (NEG) Urine Methadone Screen Neg (NEG) Urine Barbiturates Neg (NEG) Urine Phencyclidine Screen Neg (NEG) Urine Amphetamine/Methamphetamine Neg (NEG) Urine Benzodiazepines Screen Neg (NEG) Urine Cocaine Screen Neg (NEG) Urine Cannabinoids Screen Pos (NEG) Ethyl Alcohol Level < 10 mg/dL (0-10) Urine Ethyl Alcohol Neg (NEG) Glucose (Fingerstick) 337 mg/dL (70-99) 349 mg/dL (70-99) Bedside Troponin I 0.06 ng/ml (<0.08) Test 01/11/18 19:09 01/11/18 19:33 01/11/18 20:00 01/11/18 23:50 O2 Saturation 95 % (92-99) Arterial Blood pH 7.20 (7.35-7.45) Arterial Blood pCO2 at Patient Temp 62 mmHg (35-46) Arterial Blood pO2 at Patient Temp 86 mmHg (75-108) Arterial Blood HCO3 24 mmol/L (21-28) Arterial Blood Base Excess -5 mmol/L (-3-3) FiO2 100 Glucose (Fingerstick) 272 mg/dL (70-99) Sodium Level 133 mmol/L (136-145) Potassium Level 4.3 mmol/L (3.5-5.1) Chloride Level 98 mmol/L (98-107) Carbon Dioxide Level 25 mmol/L (21-32) Anion Gap 10 (6-14) Blood Urea Nitrogen 4 mg/dL (8-26) Creatinine 0.8 mg/dL (0.7-1.3) Estimated GFR (Cockcroft-Gault) 105.5 BUN/Creatinine Ratio 5 (6-20) Glucose Level 347 mg/dL (70-99) Calcium Level 7.7 mg/dL (8.5-10.1) Phosphorus Level 2.6 mg/dL (2.6-4.7) Magnesium Level 1.5 mg/dL (1.8-2.4) Total Bilirubin 0.9 mg/dL (0.2-1.0) Aspartate Amino Transf (AST/SGOT) 37 U/L (15-37) Alanine Aminotransferase (ALT/SGPT) 36 U/L (16-63) Alkaline Phosphatase 91 U/L (46-116) Total Protein 6.0 g/dL (6.4-8.2) Albumin 2.7 g/dL (3.4-5.0) Albumin/Globulin Ratio 0.8 (1.0-1.7) Lactic Acid Level 3.1 mmol/L (0.4-2.0) Test 01/12/18 00:07 01/12/18 04:00 01/12/18 04:30 01/12/18 05:00 Glucose (Fingerstick) 227 mg/dL (70-99) Sodium Level 137 mmol/L (136-145) Potassium Level 4.4 mmol/L (3.5-5.1) Chloride Level 103 mmol/L (98-107) Carbon Dioxide Level 23 mmol/L (21-32) Anion Gap 11 (6-14) Blood Urea Nitrogen 6 mg/dL (8-26) Creatinine 1.4 mg/dL (0.7-1.3) Estimated GFR (Cockcroft-Gault) 55.3 Glucose Level 266 mg/dL (70-99) Lactic Acid Level 0.4 mmol/L (0.4-2.0) Calcium Level 8.0 mg/dL (8.5-10.1) Phosphorus Level 3.0 mg/dL (2.6-4.7) Magnesium Level 1.9 mg/dL (1.8-2.4) Troponin I Quantitative 0.110 ng/mL (0.000-0.055) White Blood Count 5.3 x10^3/uL (4.0-11.0) Red Blood Count 4.17 x10^6/uL (4.30-5.70) Hemoglobin 13.9 g/dL (13.0-17.5) Hematocrit 39.7 % (39.0-53.0) Mean Corpuscular Volume 95 fL (79-100) Mean Corpuscular Hemoglobin 33 pg (25-35) Mean Corpuscular Hemoglobin Concent 35 g/dL (31-37) Red Cell Distribution Width 13.4 % (11.5-14.5) Platelet Count 232 x10^3/uL (140-400) Neutrophils (%) (Auto) 79 % (31-73) Lymphocytes (%) (Auto) 15 % (24-48) Monocytes (%) (Auto) 4 % (0-9) Eosinophils (%) (Auto) 1 % (0-3) Basophils (%) (Auto) 0 % (0-3) Neutrophils # (Auto) 4.2 x10^3uL (1.8-7.7) Lymphocytes # (Auto) 0.8 x10^3/uL (1.0-4.8) Monocytes # (Auto) 0.2 x10^3/uL (0.0-1.1) Eosinophils # (Auto) 0.1 x10^3/uL (0.0-0.7) Basophils # (Auto) 0.0 x10^3/uL (0.0-0.2) XG-Pcp-U-Type Natriuretic Peptide 2253 pg/mL (0-124) Triglycerides Level 1547 mg/dL (0-150) Cholesterol Level 306 mg/dL (0-200) LDL Cholesterol, Calculated mg/dL (0-100) VLDL Cholesterol, Calculated 309 mg/dL (0-40) Non-HDL Cholesterol Calculated mg/dL (0-129) HDL Cholesterol mg/dL (40-60) Cholesterol/HDL Ratio Test 01/12/18 07:40 01/12/18 08:00 Influenza Type A Antigen Negative (NEGATIVE) Influenza Type B Antigen Negative (NEGATIVE) O2 Saturation 97 % (92-99) Arterial Blood pH 7.33 (7.35-7.45) Arterial Blood pH (Temp corrected) 7.29 Arterial Blood pCO2 at Patient Temp 40 mmHg (35-46) Arterial Blood pCO2 (Temp correct) 44 mmHg Arterial Blood pO2 at Patient Temp 87 mmHg (75-108) Arterial Blood pO2 (Temp corrected) 100 mmHg Arterial Blood HCO3 20 mmol/L (21-28) Arterial Blood Base Excess -5 mmol/L (-3-3) FiO2 50 Laboratory Tests Test 01/11/18 12:10 01/11/18 14:27 01/11/18 15:12 01/11/18 15:17 White Blood Count 10.5 x10^3/uL (4.0-11.0) Red Blood Count 3.89 x10^6/uL (4.30-5.70) Hemoglobin 11.9 g/dL (13.0-17.5) Hematocrit 36.7 % (39.0-53.0) Mean Corpuscular Volume 94 fL (79-100) Mean Corpuscular Hemoglobin 31 pg (25-35) Mean Corpuscular Hemoglobin Concent 32 g/dL (31-37) Red Cell Distribution Width 13.0 % (11.5-14.5) Platelet Count 297 x10^3/uL (140-400) Neutrophils (%) (Auto) 81 % (31-73) Lymphocytes (%) (Auto) 13 % (24-48) Monocytes (%) (Auto) 5 % (0-9) Eosinophils (%) (Auto) 1 % (0-3) Basophils (%) (Auto) 2 % (0-3) Neutrophils # (Auto) 8.4 x10^3uL (1.8-7.7) Lymphocytes # (Auto) 1.3 x10^3/uL (1.0-4.8) Monocytes # (Auto) 0.5 x10^3/uL (0.0-1.1) Eosinophils # (Auto) 0.1 x10^3/uL (0.0-0.7) Basophils # (Auto) 0.2 x10^3/uL (0.0-0.2) Urine Collection Type Unknown Urine Color Yellow Urine Clarity Clear Urine pH 5.5 Urine Specific [place] 1.020 Urine Protein Negative mg/dL (NEG-TRACE) Urine Glucose (UA) >=1000 mg/dL (NEG) Urine Ketones (Stick) >=80 mg/dL (NEG) Urine Blood Trace (NEG) Urine Nitrite Negative (NEG) Urine Bilirubin Negative (NEG) Urine Urobilinogen Dipstick 1.0 mg/dL (0.2 mg/dL) Urine Leukocyte Esterase Negative (NEG) Urine RBC 6-10 /HPF (0-2) Urine WBC 1-4 /HPF (0-4) Urine Bacteria 0 /HPF (0-FEW) Sodium Level 129 mmol/L (136-145) Potassium Level 4.3 mmol/L (3.5-5.1) Chloride Level 91 mmol/L (98-107) Carbon Dioxide Level 20 mmol/L (21-32) Anion Gap 18 (6-14) Blood Urea Nitrogen 7 mg/dL (8-26) Creatinine 0.9 mg/dL (0.7-1.3) Estimated GFR (Cockcroft-Gault) 92.1 BUN/Creatinine Ratio 8 (6-20) Glucose Level 416 mg/dL (70-99) Calcium Level 8.5 mg/dL (8.5-10.1) Total Bilirubin 1.5 mg/dL (0.2-1.0) Aspartate Amino Transf (AST/SGOT) 44 U/L (15-37) Alanine Aminotransferase (ALT/SGPT) 47 U/L (16-63) Alkaline Phosphatase 105 U/L (46-116) Troponin I Quantitative 0.089 ng/mL (0.000-0.055) Total Protein 6.4 g/dL (6.4-8.2) Albumin 2.9 g/dL (3.4-5.0) Albumin/Globulin Ratio 0.8 (1.0-1.7) Urine Opiates Screen Neg (NEG) Urine Methadone Screen Neg (NEG) Urine Barbiturates Neg (NEG) Urine Phencyclidine Screen Neg (NEG) Urine Amphetamine/Methamphetamine Neg (NEG) Urine Benzodiazepines Screen Neg (NEG) Urine Cocaine Screen Neg (NEG) Urine Cannabinoids Screen Pos (NEG) Ethyl Alcohol Level < 10 mg/dL (0-10) Urine Ethyl Alcohol Neg (NEG) Glucose (Fingerstick) 337 mg/dL (70-99) 349 mg/dL (70-99) Bedside Troponin I 0.06 ng/ml (<0.08) Test 01/11/18 19:09 01/11/18 19:33 01/11/18 20:00 01/11/18 23:50 O2 Saturation 95 % (92-99) Arterial Blood pH 7.20 (7.35-7.45) Arterial Blood pCO2 at Patient Temp 62 mmHg (35-46) Arterial Blood pO2 at Patient Temp 86 mmHg (75-108) Arterial Blood HCO3 24 mmol/L (21-28) Arterial Blood Base Excess -5 mmol/L (-3-3) FiO2 100 Glucose (Fingerstick) 272 mg/dL (70-99) Sodium Level 133 mmol/L (136-145) Potassium Level 4.3 mmol/L (3.5-5.1) Chloride Level 98 mmol/L (98-107) Carbon Dioxide Level 25 mmol/L (21-32) Anion Gap 10 (6-14) Blood Urea Nitrogen 4 mg/dL (8-26) Creatinine 0.8 mg/dL (0.7-1.3) Estimated GFR (Cockcroft-Gault) 105.5 BUN/Creatinine Ratio 5 (6-20) Glucose Level 347 mg/dL (70-99) Calcium Level 7.7 mg/dL (8.5-10.1) Phosphorus Level 2.6 mg/dL (2.6-4.7) Magnesium Level 1.5 mg/dL (1.8-2.4) Total Bilirubin 0.9 mg/dL (0.2-1.0) Aspartate Amino Transf (AST/SGOT) 37 U/L (15-37) Alanine Aminotransferase (ALT/SGPT) 36 U/L (16-63) Alkaline Phosphatase 91 U/L (46-116) Total Protein 6.0 g/dL (6.4-8.2) Albumin 2.7 g/dL (3.4-5.0) Albumin/Globulin Ratio 0.8 (1.0-1.7) Lactic Acid Level 3.1 mmol/L (0.4-2.0) Test 01/12/18 00:07 01/12/18 04:00 01/12/18 04:30 01/12/18 05:00 Glucose (Fingerstick) 227 mg/dL (70-99) Sodium Level 137 mmol/L (136-145) Potassium Level 4.4 mmol/L (3.5-5.1) Chloride Level 103 mmol/L (98-107) Carbon Dioxide Level 23 mmol/L (21-32) Anion Gap 11 (6-14) Blood Urea Nitrogen 6 mg/dL (8-26) Creatinine 1.4 mg/dL (0.7-1.3) Estimated GFR (Cockcroft-Gault) 55.3 Glucose Level 266 mg/dL (70-99) Lactic Acid Level 0.4 mmol/L (0.4-2.0) Calcium Level 8.0 mg/dL (8.5-10.1) Phosphorus Level 3.0 mg/dL (2.6-4.7) Magnesium Level 1.9 mg/dL (1.8-2.4) Troponin I Quantitative 0.110 ng/mL (0.000-0.055) White Blood Count 5.3 x10^3/uL (4.0-11.0) Red Blood Count 4.17 x10^6/uL (4.30-5.70) Hemoglobin 13.9 g/dL (13.0-17.5) Hematocrit 39.7 % (39.0-53.0) Mean Corpuscular Volume 95 fL (79-100) Mean Corpuscular Hemoglobin 33 pg (25-35) Mean Corpuscular Hemoglobin Concent 35 g/dL (31-37) Red Cell Distribution Width 13.4 % (11.5-14.5) Platelet Count 232 x10^3/uL (140-400) Neutrophils (%) (Auto) 79 % (31-73) Lymphocytes (%) (Auto) 15 % (24-48) Monocytes (%) (Auto) 4 % (0-9) Eosinophils (%) (Auto) 1 % (0-3) Basophils (%) (Auto) 0 % (0-3) Neutrophils # (Auto) 4.2 x10^3uL (1.8-7.7) Lymphocytes # (Auto) 0.8 x10^3/uL (1.0-4.8) Monocytes # (Auto) 0.2 x10^3/uL (0.0-1.1) Eosinophils # (Auto) 0.1 x10^3/uL (0.0-0.7) Basophils # (Auto) 0.0 x10^3/uL (0.0-0.2) UC-Pjc-[id number]-Type Natriuretic Peptide 2253 pg/mL (0-124) Triglycerides Level 1547 mg/dL (0-150) Cholesterol Level 306 mg/dL (0-200) LDL Cholesterol, Calculated mg/dL (0-100) VLDL Cholesterol, Calculated 309 mg/dL (0-40) Non-HDL Cholesterol Calculated mg/dL (0-129) HDL Cholesterol mg/dL (40-60) Cholesterol/HDL Ratio Test 01/12/18 07:40 01/12/18 08:00 Influenza Type A Antigen Negative (NEGATIVE) Influenza Type B Antigen Negative (NEGATIVE) O2 Saturation 97 % (92-99) Arterial Blood pH 7.33 (7.35-7.45) Arterial Blood pH (Temp corrected) 7.29 Arterial Blood pCO2 at Patient Temp 40 mmHg (35-46) Arterial Blood pCO2 (Temp correct) 44 mmHg Arterial Blood pO2 at Patient Temp 87 mmHg (75-108) Arterial Blood pO2 (Temp corrected) 100 mmHg Arterial Blood HCO3 20 mmol/L (21-28) Arterial Blood Base Excess -5 mmol/L (-3-3) FiO2 50 Medications Current Medications Lorazepam (Ativan) 1 mg 1X ONCE IV Last administered on 01/11/18at 12:25; Start 01/11/18 at 12:30; Stop 01/11/18 at 12:31; Status DC Lorazepam (Ativan) 2 mg 1X ONCE IV Last administered on 01/11/18at 13:03; Start 01/11/18 at 12:45; Stop 01/11/18 at 12:46; Status DC Dextrose/Sodium Chloride 1,000 ml @ 0 mls/hr 1X ONCE IV ; Start 01/11/18 at 13:00; Stop 01/11/18 at 13:16; Status DC Sodium Chloride 1,000 ml @ 1,000 mls/hr 1X ONCE IV Last administered on 01/11at 13:41; Start 01/11/18 at 13:30; Stop 01/11/18 at 14:29; Status DC Sodium Chloride 1,000 ml @ 1,000 mls/hr 1X ONCE IV Last administered on 01/11at 13:42; Start 01/11/18 at 13:30; Stop 01/11/18 at 14:29; Status DC Lorazepam (Ativan) 1 mg 1X ONCE IV Last administered on 01/11/18at 15:08; Start 01/11/18 at 13:30; Stop 01/11/18 at 13:31; Status DC Lorazepam (Ativan) 1 mg 1X ONCE IV Last administered on 01/11/18at 13:43; Start 01/11/18 at 13:30; Stop 01/11/18 at 13:33; Status DC Aspirin (Children'S Aspirin) 324 mg 1X ONCE PO Last administered on at 14:02; Start 01/11/18 at 13:45; Stop 01/11/18 at 13:46; Status DC Haloperidol Lactate (Haldol Inj) 5 mg PRN Q6HRS PRN IVP SEVERE AGITATION Last administered on 01/11/18at 18:14; Start 01/11/18 at 16:15 Lorazepam (Ativan) 4 mg PRN Q4HRS PRN IV ANXIETY / AGITATION Last administered on 01/11/18at 18:15; Start 01/11/18 at 16:15 Multivitamins 10 ml/Thiamine HCl 100 mg/Folic Acid 1 mg/Sodium Chloride 1,011.2 ml @ 125 mls/ hr DAILY IV Last administered on 01/12/18at 08:45; Start at 17:00 Dexmedetomidine HCl 200 mcg/ Sodium Chloride 50 ml @ 0 mls/hr CONT PRN IV PER PROTOCOL Last administered on 01/11/18at 17:00; Start 01/11/18 at 16:45; Stop 01/11/18 at 18:38; Status DC Sodium Chloride 500 ml @ 500 mls/hr 1X PRN PRN IV SEE COMMENTS; Start at 16:45 Atropine Sulfate (ATROPINE 0.5mg SYRINGE) 0.5 mg PRN Q5MIN PRN IV SEE COMMENTS ; Start 01/11/18 at 16:45 Lorazepam (Ativan) 4 mg PRN Q1HR PRN PO For CIWA 8-14; Start 01/11/18 at 18:15 Lorazepam (Ativan) 8 mg PRN Q1HR PRN PO For CIWA 15 or greater; Start at 18:15 Lorazepam (Ativan) 2 mg PRN Q1HR PRN IV For CIWA 8-14; Start 01/11/18 at 18:15 Lorazepam (Ativan) 4 mg PRN Q1HR PRN IV For CIWA 15 or greater; Start at 18:15 Diphenhydramine HCl (Benadryl) 25 mg PRN Q15MIN PRN IVP EPS symptoms 2'Haldol admin; Start 01/11/18 at 18:15 Olanzapine (ZyPREXA IM) 10 mg 1X ONCE IM Last administered on 01/11/18at 18:42 ; Start 01/11/18 at 18:45; Stop 01/11/18 at 18:46; Status DC Dexmedetomidine HCl 200 mcg/ Sodium Chloride 50 ml @ 7 mls/hr CONT PRN IV PER PROTOCOL; Start 01/11/18 at 18:38; Stop 01/11/18 at 21:19; Status DC Propofol 100 ml @ As Directed STK-MED ONCE IV ; Start 01/11/18 at 18:43; Stop 01/11/18 at 18:44; Status DC Succinylcholine Chloride (Anectine) 200 mg STK-MED ONCE .ROUTE ; Start at 18:44; Stop 01/11/18 at 18:45; Status DC Fentanyl Citrate 30 ml @ 2.5 mls/hr CONT PRN IV PER PROTOCOL Last administered on 01/12/18at 05:37; Start 01/11/18 at 19:00 Propofol 100 ml @ 4.2 mls/hr CONT PRN IV PER PROTOCOL; Start 01/11/18 at 18: 45; Status Cancel Fentanyl Citrate (Fentanyl 2ml Vial) 25 mcg PRN Q1HR PRN IV SEE COMMENTS.; Start 01/11/18 at 18:45 Fentanyl Citrate (Fentanyl 2ml Vial) 50 mcg PRN Q1HR PRN IV SEE COMMENTS. Last administered on 01/11/18at 20:21; Start 01/11/18 at 18:45 Morphine Sulfate (Morphine Sulfate) 2 mg PRN Q1HR PRN IV SEE COMMENTS.; Start 01/11/18 at 18:45 Morphine Sulfate (Morphine Sulfate) 4 mg PRN Q1HR PRN IV SEE COMMENTS.; Start 01/11/18 at 18:45 Hydromorphone HCl (Dilaudid) 0.2 mg PRN Q1HR PRN IV SEE COMMENTS.; Start 01/11 at 18:45 Hydromorphone HCl (Dilaudid) 0.4 mg PRN Q1HR PRN IV SEE COMMENTS.; Start 01/11 at 18:45 Morphine Sulfate (Morphine Sulfate) 2 mg PRN Q1HR PRN IV ; Start 01/11/18 at 18:45; Status UNV Morphine Sulfate (Morphine Sulfate) 4 mg PRN Q1HR PRN IV ; Start 01/11/18 at 18:45; Status UNV Midazolam HCl 100 ml @ 1 mls/hr CONT PRN IV PER PROTOCOL Last administered on 01/12/18at 05:37; Start 01/11/18 at 18:45 Epinephrine HCl (EPINEPHrine SYRINGE) 1 mg STK-MED ONCE .ROUTE ; Start at 18:56; Stop 01/11/18 at 18:57; Status DC Propofol 100 ml @ 2.103 mls/ hr CONT PRN IV SEE I/O RECORD Last administered on 01/11/18at 20:23; Start 01/11/18 at 19:00 Vecuronium [place] (Norcuron Bolus) 10 mg STK-MED ONCE IV ; Start 01/11/18 at 19:02; Stop 01/11/18 at 19:03; Status DC Vancomycin HCl (Vanco Per Pharmacy) 1 each PRN DAILY PRN MC SEE COMMENTS Last administered on 01/12/18at 06:33; Start 01/11/18 at 20:15 Piperacillin Sod/ Tazobactam Sod (Zosyn Per Pharmacy) 1 each PRN DAILY PRN MC SEE COMMENTS; Start 01/11/18 at 20:15 Piperacillin Sod/ Tazobactam Sod 4.5 gm/Sodium Chloride 100 ml @ 200 mls/hr Q6HRS IV Last administered on 01/12/18at 05:36; Start 01/12/18 at 00:00 Vancomycin HCl 2 gm/Sodium Chloride 500 ml @ 250 mls/hr 1X ONCE IV Last administered on 01/11/18at 21:00; Start 01/11/18 at 21:00; Stop 01/11/18 at 22 :59; Status DC Insulin Human Lispro (HumaLOG) 0-7 UNITS Q6HRS SQ Last administered on at 05:38; Start 01/12/18 at 00:00 Dextrose (Dextrose 50%-Water Syringe) 12.5 gm PRN Q15MIN PRN IV SEE COMMENTS; Start 01/11/18 at 21:00 Sodium Chloride 1,000 ml @ 100 mls/hr Q10H IV Last administered on 01/12/18at 07:25; Start 01/11/18 at 21:00 Dexmedetomidine HCl 200 mcg/ Sodium Chloride 50 ml @ 0 mls/hr CONT PRN IV PER PROTOCOL Last administered on 01/12/18at 09:34; Start 01/11/18 at 21:00 Acetaminophen (Tylenol) 650 mg PRN Q6HRS PRN PEG MILD PAIN / TEMP Last administered on 01/12/18at 05:37; Start 01/11/18 at 21:30 Magnesium Sulfate 50 ml @ 25 mls/hr 1X ONCE IV Last administered on at 01:27; Start 01/12/18 at 01:00; Stop 01/12/18 at 02:59; Status DC Sodium Chloride 1,000 ml @ 1,000 mls/hr 1X ONCE IV Last administered on 01/12at 01:00; Start 01/12/18 at 04:30; Stop 01/12/18 at 05:29; Status DC Vancomycin HCl 1.5 gm/Sodium Chloride 500 ml @ 250 mls/hr Q12H IV Last administered on 01/12/18at 08:44; Start 01/12/18 at 09:00 Vancomycin HCl (Vancomycin Trough Level) 1 each 1X ONCE MC ; Start 01/12/18 at 20:30; Stop 01/12/18 at 20:31 Sodium Chloride 500 ml @ 500 mls/hr 1X ONCE IV Last administered on at 07:26; Start 01/12/18 at 07:00; Stop 01/12/18 at 07:59; Status DC Famotidine (Pepcid Vial) 20 mg BID IVP Last administered on 01/12/18at 08:45; Start 01/12/18 at 09:00 Albuterol/ Ipratropium (Duoneb) 3 ml RTQID NEB Last administered on 01/12/18at 07:41; Start 01/12/18 at 08:00 Heparin Sodium (Porcine) (Heparin Sodium) 5,000 unit Q8HRS SQ ; Start 01/12/18 at 14:00 Gemfibrozil (Lopid) 600 mg BIDBFRMEAL PO ; Start 01/12/18 at 10:00 Active Scripts Active Reported [hemp botanicals] Maxitrol Eye Drops (Brandon/Polymyx B Sulf/Dexameth) 5 Ml Drops.susp 1 Drop OD QID Multivitamins (Multivitamin) 1 Each Tablet 1 Tab PO DAILY Magnesium (Magnesium Oxide) 400 Mg Capsule 1 Cap PO DAILY Calcium (Calcium Carbonate) 500 Mg Tab.chew 500 Mg PO Lansoprazole 30 Mg Capsule.dr 1 Cap PO DAILY Losartan Potassium 25 Mg Tablet 25 Mg PO DAILY Tizanidine Hcl 4 Mg Tablet 1 Tab PO TID Tramadol Hcl 50 Mg Tablet 50 Mg PO DAILY PRN Bystolic (Nebivolol Hcl) 20 Mg Tablet 20 Mg PO DAILY Cymbalta (Duloxetine Hcl) 20 Mg Capsule.dr 1 Cap PO DAILY Valacyclovir (Valacyclovir Hcl) 1,000 Mg Tablet 1 Tab PO DAILY Ibuprofen 400 Mg Tablet 400 Mg PO PRN Q6HRS PRN Bystolic (Nebivolol) 10 Mg Tablet 20 Mg PO DAILY Amlodipine Besylate 10 Mg Tablet 10 Mg PO DAILY Vitals/I & O Vital Sign - Last 24 Hours 01/11/18 01/11/18 01/11/18 01/11/18 11:50 13:45 14:28 16:12 Temp 98.8 98.8 Pulse 73 74 83 85 Resp 35 34 30 24 B/P (MAP) 151/88 (109) 132/81 (98) 147/92 (110) 168/76 (106) Pulse Ox 98 96 97 98 O2 Delivery Room Air Room Air Room Air Room Air 01/11/18 01/11/18 01/11/18 01/11/18 17:00 18:00 19:00 19:30 Temp 100.0 100.0 Pulse 74 88 110 Resp 26 22 22 B/P (MAP) 133/78 (96) 142/76 (98) 161/94 (116) Pulse Ox 98 87 O2 Delivery Room Air 01/11/18 01/11/18 01/11/18 01/11/18 20:00 20:00 20:40 21:00 Pulse 110 112 Resp 19 22 B/P (MAP) 173/90 (117) 105/66 (79) Pulse Ox 94 95 97 O2 Delivery Mechanical Ventilator Ventilator 01/11/18 01/11/18 01/11/18 01/11/18 21:00 22:03 23:00 23:36 Temp 101.5 101.5 Pulse 88 88 Resp 22 22 B/P (MAP) 106/64 (78) 110/78 (89) Pulse Ox 99 99 99 O2 Delivery Ventilator 01/11/18 01/12/18 01/12/18 01/12/18 23:59 01:00 01:58 02:00 Temp 100.6 101.0 100.6 101.0 Pulse 87 91 Resp 22 B/P (MAP) 80/56 (64) 113/62 (79) Pulse Ox 99 99 98 O2 Delivery Mechanical Ventilator Ventilator 01/12/18 01/12/18 01/12/18 01/12/18 03:00 03:57 04:00 04:00 Temp 101.8 102.6 101.8 102.6 Pulse 87 93 Resp 22 22 B/P (MAP) 95/63 (74) 109/66 (80) Pulse Ox 99 99 97 O2 Delivery Ventilator Mechanical Ventilator 01/12/18 01/12/18 01/12/18 01/12/18 05:00 05:14 06:00 07:00 Temp 102.4 102.9 102.5 102.4 102.9 102.5 Pulse 93 94 88 Resp 22 23 B/P (MAP) 109/66 (80) 101/59 (73) 101/59 (73) Pulse Ox 97 99 95 97 O2 Delivery Ventilator Ventilator 01/12/18 01/12/18 01/12/18 01/12/18 07:41 08:00 08:00 09:00 Pulse 90 92 Resp 26 26 B/P (MAP) 92/56 (68) 137/67 (90) Pulse Ox 98 98 93 O2 Delivery Ventilator Mechanical Ventilator Ventilator Ventilator 01/12/18 09:10 Pulse Ox 98 O2 Delivery Ventilator Intake and Output 01/11/18 01/11/18 01/12/18 15:00 23:00 07:00 Intake Total 1240 ml 1000 ml 2920 ml Output Total 800 ml 920 ml 1405 ml Balance 440 ml 80 ml 1515 ml CYNDI VEGA MD Jan 12, 2018 10:10
--- NOTE | 2018-01-12 13:28 | CONS ---
DATE OF CONSULTATION: 01/12/2018 Quincy Crandall APRN dictating for Carmelo Sherman MD REFERRING PHYSICIAN: Dr. Sahu. REASON FOR CONSULTATION: History of MRSA in spine, now with altered mental status changes. HISTORY OF PRESENT ILLNESS: This patient is a 42-year-old male who was brought to the ER yesterday by his father for evaluation of uncontrolled behavioral issues that are associated with auditory and visual hallucinations. Apparently, over the last 2 weeks, he had been drinking 1-2/5 of whiskey daily. The patient was intubated for airway protection. A head CT was unremarkable. A chest x-ray revealed right mid lung interstitial opacity and mild pulmonary vascular congestion. He has been running fevers ranging from 100-102.9. Blood cultures have been ordered. He was dosed with vancomycin and Zosyn. According to the patient's mother, he has a history of chronic back pain, status post multiple back surgeries. He was treated for an epidural abscess with negative cultures in 08/2016 for which he was treated with IV antibiotics. Recently, he had been complaining of worsening back pain and urinary incontinence. He was scheduled to have an open MRI prior to this admission. He is unaware of him seeing a chiropractor of lately. He recently traveled to the [facility] and was exposed to fiery ants with multiple bites on his legs. He had a recent bowel movement yesterday. PAST MEDICAL HISTORY: 1. History of MRSA. 2. Chronic back pain. 3. Hypertension. 4. Peptic ulcer disease. 5. Anxiety. 6. Depression. 7. Obesity. 8. Gout. 9. Gastroesophageal reflux disease. 10. History of epidural abscess with negative cultures status post I and D in 09/2016. PAST SURGICAL HISTORY: 1. L5 right laminectomy and L5-S1 diskectomy on 09/17/2016. 2. LESI. 3. Cervical diskectomy 2004 and 2006. 4. Partial left knee replacement in 1997. 5. Bilateral knee surgery. 6. Tooth extraction. FAMILY HISTORY: Positive for coronary artery disease. SOCIAL HISTORY: The patient is single. 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 He recently traveled to the [facility]. ALLERGIES: No known drug allergies. MEDICATIONS: Vancomycin, Zosyn. Other medications are available and have been reviewed on the MAR. REVIEW OF SYSTEMS: Unobtainable as the patient is intubated and sedated. PHYSICAL EXAMINATION: GENERAL: The patient is slightly propped up in bed, sedated and intubated. VITAL SIGNS: Temperature is 102.5, T-max 102.9, blood pressure 92/56, heart rate 90, respiratory rate 26, pulse oximetry is 98% on FiO2 of 50%. HEENT: Pupils small and equal. ETT and NGT in place. LUNGS: Diminished aeration in the bases. HEART: Regular rhythm. ABDOMEN: Obese. Hypoactive bowel sounds, soft, no grimace or guarding to palpation. GENITOURINARY: Indwelling Cook in place. EXTREMITIES: No gross edema or cyanosis. SKIN: He has tattoos. Warm, diaphoretic without rash. Multiple small scabs on both legs. Peripheral IV looks okay, NEUROLOGIC: Unresponsive/sedated. LABORATORY DATA: Today's WBC 5.3 from 10.5 on admission; hemoglobin 13.9; platelet count of 232,000. Electrolytes unremarkable. Creatinine 1.4, BUN 6, glucose 266 from 416 on admission. Lactic acid 0.4 from 3.1 on admission. Total bilirubin 0.9, AST 37, ALT 36. Troponin 0.110. BNP 2253, albumin 2.7. Urine toxicology positive for cannabinoids. Ethyl alcohol less than 10. Urinalysis unremarkable for infection. Influenza screen negative. Today's chest x-ray shows small bilateral pleural effusions with parenchymal opacities, suspicious for pulmonary edema. Moderate colonic stool content. He had a recent bowel movement yesterday. Head CT per HPI. Blood cultures, MRSA screen, legionella and strep pneumo antigens in process. IMPRESSION: 1. Fever. 2. Aspiration pneumonia. 3. Acute encephalopathy with hallucinations and behavioral change. 4. Lactic acidosis, improved. 5. Heavy alcohol use. 6. Hyperglycemia. 7. Worsening back pain with urinary incontinence prior to admission. 8. History of methicillin-resistant Staphylococcus aureus. 9. Morbid obesity. PLAN: Continue the vancomycin and Zosyn. We will add a sputum culture. Further antibiotic modifications pending culture results and clinical response. Monitor laboratory values, temperature and renal function closely. Above discussed with the patient's mother. Thank you, Dr. Sahu for asking us to participate in this patient's care. Should you have further questions or concerns, please call. CARMELO SHERMAN MD DR: CHAITANYA/romi JOB#: [id number] / [id number]
--- NOTE | 2018-01-12 14:01 | PDOC2 ---
CONSULT Date of Consult Date of Consult DATE: 01/12/18 TIME: 13:54 Reason for Consult Reason for Consult: Acute respiratory failure and possible heart failure. Referring Physician Referring Physician: Dr. Sahu Identification/Chief Complaint Chief Complaint Patient was admitted through the ER with hallucinations. Source Source: Chart review History of Present Illness Reason for Visit: The patient is a 42-year-old male who was admitted through the emergency room for hallucinations. Patient had been binge drinking alcohol as per report over at least several days. He had periods of agitation and aggression. Glucose level was greater than 400. Patient had progressive agitation and shortness of breath and was intubated. At this time he is intubated and sedated in the ICU. His EKG has shown sinus rhythm with no acute ischemic changes. Troponins were minimally elevated 0.110. His triglycerides are very elevated at 1547. Head CT scan has shown no acute changes. Chest x-ray shows vascular congestion with possible heart failure. The patient has been diuresed and treated for possible diabetic ketoacidosis and also treated for possible sepsis. Past Medical History Cardiovascular: HTN GI: GERD Psych: Depression Musculoskeletal: low back pain Past Surgical History Past Surgical History: Total knee replacement, Other (lamminectomy, discectomy, ) Family History Family History: Heart Disease Social History ALCOHOL: heavy Current Problem List Problem List Problems Medical Problems: (1) Diabetic keto-acidosis Status: Acute (2) Hyperglycemia due to type 2 diabetes mellitus Status: Acute (3) Metabolic acidemia Status: Acute (4) Metabolic encephalopathy Status: Acute Current Medications Current Medications Current Medications Lorazepam (Ativan) 1 mg 1X ONCE IV Last administered on 01/11/18at 12:25; Start 01/11/18 at 12:30; Stop 01/11/18 at 12:31; Status DC Lorazepam (Ativan) 2 mg 1X ONCE IV Last administered on 01/11/18at 13:03; Start 01/11/18 at 12:45; Stop 01/11/18 at 12:46; Status DC Dextrose/Sodium Chloride 1,000 ml @ 0 mls/hr 1X ONCE IV ; Start 01/11/18 at 13:00; Stop 01/11/18 at 13:16; Status DC Sodium Chloride 1,000 ml @ 1,000 mls/hr 1X ONCE IV Last administered on 01/11at 13:41; Start 01/11/18 at 13:30; Stop 01/11/18 at 14:29; Status DC Sodium Chloride 1,000 ml @ 1,000 mls/hr 1X ONCE IV Last administered on 01/11at 13:42; Start 01/11/18 at 13:30; Stop 01/11/18 at 14:29; Status DC Lorazepam (Ativan) 1 mg 1X ONCE IV Last administered on 01/11/18at 15:08; Start 01/11/18 at 13:30; Stop 01/11/18 at 13:31; Status DC Lorazepam (Ativan) 1 mg 1X ONCE IV Last administered on 01/11/18at 13:43; Start 01/11/18 at 13:30; Stop 01/11/18 at 13:33; Status DC Aspirin (Children'S Aspirin) 324 mg 1X ONCE PO Last administered on at 14:02; Start 01/11/18 at 13:45; Stop 01/11/18 at 13:46; Status DC Haloperidol Lactate (Haldol Inj) 5 mg PRN Q6HRS PRN IVP SEVERE AGITATION Last administered on 01/11/18at 18:14; Start 01/11/18 at 16:15 Lorazepam (Ativan) 4 mg PRN Q4HRS PRN IV ANXIETY / AGITATION Last administered on 01/12/18at 11:35; Start 01/11/18 at 16:15 Multivitamins 10 ml/Thiamine HCl 100 mg/Folic Acid 1 mg/Sodium Chloride 1,011.2 ml @ 125 mls/ hr DAILY IV Last administered on 01/12/18at 08:45; Start at 17:00 Dexmedetomidine HCl 200 mcg/ Sodium Chloride 50 ml @ 0 mls/hr CONT PRN IV PER PROTOCOL Last administered on 01/11/18at 17:00; Start 01/11/18 at 16:45; Stop 01/11/18 at 18:38; Status DC Sodium Chloride 500 ml @ 500 mls/hr 1X PRN PRN IV SEE COMMENTS; Start at 16:45 Atropine Sulfate (ATROPINE 0.5mg SYRINGE) 0.5 mg PRN Q5MIN PRN IV SEE COMMENTS ; Start 01/11/18 at 16:45 Lorazepam (Ativan) 4 mg PRN Q1HR PRN PO For CIWA 8-14; Start 01/11/18 at 18:15 Lorazepam (Ativan) 8 mg PRN Q1HR PRN PO For CIWA 15 or greater; Start at 18:15 Lorazepam (Ativan) 2 mg PRN Q1HR PRN IV For CIWA 8-14; Start 01/11/18 at 18:15 Lorazepam (Ativan) 4 mg PRN Q1HR PRN IV For CIWA 15 or greater; Start at 18:15 Diphenhydramine HCl (Benadryl) 25 mg PRN Q15MIN PRN IVP EPS symptoms 2'Haldol admin; Start 01/11/18 at 18:15 Olanzapine (ZyPREXA IM) 10 mg 1X ONCE IM Last administered on 01/11/18at 18:42 ; Start 01/11/18 at 18:45; Stop 01/11/18 at 18:46; Status DC Dexmedetomidine HCl 200 mcg/ Sodium Chloride 50 ml @ 7 mls/hr CONT PRN IV PER PROTOCOL; Start 01/11/18 at 18:38; Stop 01/11/18 at 21:19; Status DC Propofol 100 ml @ As Directed STK-MED ONCE IV ; Start 01/11/18 at 18:43; Stop 01/11/18 at 18:44; Status DC Succinylcholine Chloride (Anectine) 200 mg STK-MED ONCE .ROUTE ; Start at 18:44; Stop 01/11/18 at 18:45; Status DC Fentanyl Citrate 30 ml @ 2.5 mls/hr CONT PRN IV PER PROTOCOL Last administered on 01/12/18at 12:32; Start 01/11/18 at 19:00 Propofol 100 ml @ 4.2 mls/hr CONT PRN IV PER PROTOCOL; Start 01/11/18 at 18: 45; Status Cancel Fentanyl Citrate (Fentanyl 2ml Vial) 25 mcg PRN Q1HR PRN IV SEE COMMENTS.; Start 01/11/18 at 18:45 Fentanyl Citrate (Fentanyl 2ml Vial) 50 mcg PRN Q1HR PRN IV SEE COMMENTS. Last administered on 01/11/18at 20:21; Start 01/11/18 at 18:45 Morphine Sulfate (Morphine Sulfate) 2 mg PRN Q1HR PRN IV SEE COMMENTS.; Start 01/11/18 at 18:45 Morphine Sulfate (Morphine Sulfate) 4 mg PRN Q1HR PRN IV SEE COMMENTS.; Start 01/11/18 at 18:45 Hydromorphone HCl (Dilaudid) 0.2 mg PRN Q1HR PRN IV SEE COMMENTS.; Start 01/11 at 18:45 Hydromorphone HCl (Dilaudid) 0.4 mg PRN Q1HR PRN IV SEE COMMENTS.; Start 01/11 at 18:45 Morphine Sulfate (Morphine Sulfate) 2 mg PRN Q1HR PRN IV ; Start 01/11/18 at 18:45; Status UNV Morphine Sulfate (Morphine Sulfate) 4 mg PRN Q1HR PRN IV ; Start 01/11/18 at 18:45; Status UNV Midazolam HCl 100 ml @ 1 mls/hr CONT PRN IV PER PROTOCOL Last administered on 01/12/18at 05:37; Start 01/11/18 at 18:45 Epinephrine HCl (EPINEPHrine SYRINGE) 1 mg STK-MED ONCE .ROUTE ; Start at 18:56; Stop 01/11/18 at 18:57; Status DC Propofol 100 ml @ 2.103 mls/ hr CONT PRN IV SEE I/O RECORD Last administered on 01/11/18at 20:23; Start 01/11/18 at 19:00 Vecuronium [place] (Norcuron Bolus) 10 mg STK-MED ONCE IV ; Start 01/11/18 at 19:02; Stop 01/11/18 at 19:03; Status DC Vancomycin HCl (Vanco Per Pharmacy) 1 each PRN DAILY PRN MC SEE COMMENTS Last administered on 01/12/18at 11:47; Start 01/11/18 at 20:15; Stop 01/12/18 at 13 :14; Status DC Piperacillin Sod/ Tazobactam Sod (Zosyn Per Pharmacy) 1 each PRN DAILY PRN MC SEE COMMENTS; Start 01/11/18 at 20:15 Piperacillin Sod/ Tazobactam Sod 4.5 gm/Sodium Chloride 100 ml @ 200 mls/hr Q6HRS IV Last administered on 01/12/18at 11:09; Start 01/12/18 at 00:00 Vancomycin HCl 2 gm/Sodium Chloride 500 ml @ 250 mls/hr 1X ONCE IV Last administered on 01/11/18at 21:00; Start 01/11/18 at 21:00; Stop 01/11/18 at 22 :59; Status DC Insulin Human Lispro (HumaLOG) 0-7 UNITS Q6HRS SQ Last administered on at 05:38; Start 01/12/18 at 00:00 Dextrose (Dextrose 50%-Water Syringe) 12.5 gm PRN Q15MIN PRN IV SEE COMMENTS; Start 01/11/18 at 21:00 Sodium Chloride 1,000 ml @ 100 mls/hr Q10H IV Last administered on 01/12/18at 07:25; Start 01/11/18 at 21:00 Dexmedetomidine HCl 200 mcg/ Sodium Chloride 50 ml @ 0 mls/hr CONT PRN IV PER PROTOCOL Last administered on 01/12/18at 12:38; Start 01/11/18 at 21:00 Acetaminophen (Tylenol) 650 mg PRN Q6HRS PRN PEG MILD PAIN / TEMP Last administered on 01/12/18at 12:34; Start 01/11/18 at 21:30 Magnesium Sulfate 50 ml @ 25 mls/hr 1X ONCE IV Last administered on at 01:27; Start 01/12/18 at 01:00; Stop 01/12/18 at 02:59; Status DC Sodium Chloride 1,000 ml @ 1,000 mls/hr 1X ONCE IV Last administered on 01/12at 01:00; Start 01/12/18 at 04:30; Stop 01/12/18 at 05:29; Status DC Vancomycin HCl 1.5 gm/Sodium Chloride 500 ml @ 250 mls/hr Q12H IV Last administered on 01/12/18at 08:44; Start 01/12/18 at 09:00; Stop 01/12/18 at 13 :14; Status DC Vancomycin HCl (Vancomycin Trough Level) 1 each 1X ONCE MC ; Start 01/12/18 at 20:30; Stop 01/12/18 at 20:30; Status DC Sodium Chloride 500 ml @ 500 mls/hr 1X ONCE IV Last administered on at 07:26; Start 01/12/18 at 07:00; Stop 01/12/18 at 07:59; Status DC Famotidine (Pepcid Vial) 20 mg BID IVP Last administered on 01/12/18at 08:45; Start 01/12/18 at 09:00 Albuterol/ Ipratropium (Duoneb) 3 ml RTQID NEB Last administered on 01/12/18at 11:57; Start 01/12/18 at 08:00 Heparin Sodium (Porcine) (Heparin Sodium) 5,000 unit Q8HRS SQ ; Start 01/12/18 at 14:00 Gemfibrozil (Lopid) 600 mg BIDBFRMEAL PO ; Start 01/12/18 at 10:00 Linezolid/Dextrose 300 ml @ 300 mls/hr Q12HR IV ; Start 01/12/18 at 21:00 Active Scripts Active Reported [hemp botanicals] Maxitrol Eye Drops ([place]andon/Polymyx B Sulf/Dexameth) 5 Ml Drops.susp 1 Drop OD QID Multivitamins (Multivitamin) 1 Each Tablet 1 Tab PO DAILY Magnesium (Magnesium Oxide) 400 Mg Capsule 1 Cap PO DAILY Calcium (Calcium Carbonate) 500 Mg Tab.chew 500 Mg PO Lansoprazole 30 Mg Capsule.dr 1 Cap PO DAILY Losartan Potassium 25 Mg Tablet 25 Mg PO DAILY Tizanidine Hcl 4 Mg Tablet 1 Tab PO TID Tramadol Hcl 50 Mg Tablet 50 Mg PO DAILY PRN Bystolic (Nebivolol Hcl) 20 Mg Tablet 20 Mg PO DAILY Cymbalta (Duloxetine Hcl) 20 Mg Capsule.dr 1 Cap PO DAILY Valacyclovir (Valacyclovir Hcl) 1,000 Mg Tablet 1 Tab PO DAILY Ibuprofen 400 Mg Tablet 400 Mg PO PRN Q6HRS PRN Bystolic (Nebivolol) 10 Mg Tablet 20 Mg PO DAILY Amlodipine Besylate 10 Mg Tablet 10 Mg PO DAILY Allergies Allergies: Coded Allergies: No Known Drug Allergies (Unverified , 09/21/15) ROS Review of System Not obtainable, patient intubated. Physical Exam General: Other (sedated on a ventilator.) Lungs: Other (decreased breath sounds) Heart: Regular rate Abdomen: Normal bowel sounds Vitals VITALS Vital Signs Date Time Temp Pulse Resp B/P (MAP) Pulse Ox O2 Delivery O2 Flow Rate FiO2 01/12/18 13:00 102 27 87/58 (68) 96 Ventilator 01/12/18 12:00 102.3 102.3 Labs Labs Laboratory Tests Test 01/11/18 12:10 01/11/18 14:27 01/11/18 15:12 01/11/18 15:17 White Blood Count 10.5 x10^3/uL (4.0-11.0) Red Blood Count 3.89 x10^6/uL (4.30-5.70) Hemoglobin 11.9 g/dL (13.0-17.5) Hematocrit 36.7 % (39.0-53.0) Mean Corpuscular Volume 94 fL (79-100) Mean Corpuscular Hemoglobin 31 pg (25-35) Mean Corpuscular Hemoglobin Concent 32 g/dL (31-37) Red Cell Distribution Width 13.0 % (11.5-14.5) Platelet Count 297 x10^3/uL (140-400) Neutrophils (%) (Auto) 81 % (31-73) Lymphocytes (%) (Auto) 13 % (24-48) Monocytes (%) (Auto) 5 % (0-9) Eosinophils (%) (Auto) 1 % (0-3) Basophils (%) (Auto) 2 % (0-3) Neutrophils # (Auto) 8.4 x10^3uL (1.8-7.7) Lymphocytes # (Auto) 1.3 x10^3/uL (1.0-4.8) Monocytes # (Auto) 0.5 x10^3/uL (0.0-1.1) Eosinophils # (Auto) 0.1 x10^3/uL (0.0-0.7) Basophils # (Auto) 0.2 x10^3/uL (0.0-0.2) Urine Collection Type Unknown Urine Color Yellow Urine Clarity Clear Urine pH 5.5 Urine Specific [place] 1.020 Urine Protein Negative mg/dL (NEG-TRACE) Urine Glucose (UA) >=1000 mg/dL (NEG) Urine Ketones (Stick) >=80 mg/dL (NEG) Urine Blood Trace (NEG) Urine Nitrite Negative (NEG) Urine Bilirubin Negative (NEG) Urine Urobilinogen Dipstick 1.0 mg/dL (0.2 mg/dL) Urine Leukocyte Esterase Negative (NEG) Urine RBC 6-10 /HPF (0-2) Urine WBC 1-4 /HPF (0-4) Urine Bacteria 0 /HPF (0-FEW) Sodium Level 129 mmol/L (136-145) Potassium Level 4.3 mmol/L (3.5-5.1) Chloride Level 91 mmol/L (98-107) Carbon Dioxide Level 20 mmol/L (21-32) Anion Gap 18 (6-14) Blood Urea Nitrogen 7 mg/dL (8-26) Creatinine 0.9 mg/dL (0.7-1.3) Estimated GFR (Cockcroft-Gault) 92.1 BUN/Creatinine Ratio 8 (6-20) Glucose Level 416 mg/dL (70-99) Calcium Level 8.5 mg/dL (8.5-10.1) Total Bilirubin 1.5 mg/dL (0.2-1.0) Aspartate Amino Transf (AST/SGOT) 44 U/L (15-37) Alanine Aminotransferase (ALT/SGPT) 47 U/L (16-63) Alkaline Phosphatase 105 U/L (46-116) Troponin I Quantitative 0.089 ng/mL (0.000-0.055) Total Protein 6.4 g/dL (6.4-8.2) Albumin 2.9 g/dL (3.4-5.0) Albumin/Globulin Ratio 0.8 (1.0-1.7) Urine Opiates Screen Neg (NEG) Urine Methadone Screen Neg (NEG) Urine Barbiturates Neg (NEG) Urine Phencyclidine Screen Neg (NEG) Urine Amphetamine/Methamphetamine Neg (NEG) Urine Benzodiazepines Screen Neg (NEG) Urine Cocaine Screen Neg (NEG) Urine Cannabinoids Screen Pos (NEG) Ethyl Alcohol Level < 10 mg/dL (0-10) Urine Ethyl Alcohol Neg (NEG) Glucose (Fingerstick) 337 mg/dL (70-99) 349 mg/dL (70-99) Bedside Troponin I 0.06 ng/ml (<0.08) Test 01/11/18 19:09 01/11/18 19:33 01/11/18 20:00 01/11/18 23:50 O2 Saturation 95 % (92-99) Arterial Blood pH 7.20 (7.35-7.45) Arterial Blood pCO2 at Patient Temp 62 mmHg (35-46) Arterial Blood pO2 at Patient Temp 86 mmHg (75-108) Arterial Blood HCO3 24 mmol/L (21-28) Arterial Blood Base Excess -5 mmol/L (-3-3) FiO2 100 Glucose (Fingerstick) 272 mg/dL (70-99) Sodium Level 133 mmol/L (136-145) Potassium Level 4.3 mmol/L (3.5-5.1) Chloride Level 98 mmol/L (98-107) Carbon Dioxide Level 25 mmol/L (21-32) Anion Gap 10 (6-14) Blood Urea Nitrogen 4 mg/dL (8-26) Creatinine 0.8 mg/dL (0.7-1.3) Estimated GFR (Cockcroft-Gault) 105.5 BUN/Creatinine Ratio 5 (6-20) Glucose Level 347 mg/dL (70-99) Calcium Level 7.7 mg/dL (8.5-10.1) Phosphorus Level 2.6 mg/dL (2.6-4.7) Magnesium Level 1.5 mg/dL (1.8-2.4) Total Bilirubin 0.9 mg/dL (0.2-1.0) Aspartate Amino Transf (AST/SGOT) 37 U/L (15-37) Alanine Aminotransferase (ALT/SGPT) 36 U/L (16-63) Alkaline Phosphatase 91 U/L (46-116) Total Protein 6.0 g/dL (6.4-8.2) Albumin 2.7 g/dL (3.4-5.0) Albumin/Globulin Ratio 0.8 (1.0-1.7) Lactic Acid Level 3.1 mmol/L (0.4-2.0) Test 01/12/18 00:07 01/12/18 04:00 01/12/18 04:30 01/12/18 05:00 Glucose (Fingerstick) 227 mg/dL (70-99) Sodium Level 137 mmol/L (136-145) Potassium Level 4.4 mmol/L (3.5-5.1) Chloride Level 103 mmol/L (98-107) Carbon Dioxide Level 23 mmol/L (21-32) Anion Gap 11 (6-14) Blood Urea Nitrogen 6 mg/dL (8-26) Creatinine 1.4 mg/dL (0.7-1.3) Estimated GFR (Cockcroft-Gault) 55.3 Glucose Level 266 mg/dL (70-99) Lactic Acid Level 0.4 mmol/L (0.4-2.0) Calcium Level 8.0 mg/dL (8.5-10.1) Phosphorus Level 3.0 mg/dL (2.6-4.7) Magnesium Level 1.9 mg/dL (1.8-2.4) Troponin I Quantitative 0.110 ng/mL (0.000-0.055) White Blood Count 5.3 x10^3/uL (4.0-11.0) Red Blood Count 4.17 x10^6/uL (4.30-5.70) Hemoglobin 13.9 g/dL (13.0-17.5) Hematocrit 39.7 % (39.0-53.0) Mean Corpuscular Volume 95 fL (79-100) Mean Corpuscular Hemoglobin 33 pg (25-35) Mean Corpuscular Hemoglobin Concent 35 g/dL (31-37) Red Cell Distribution Width 13.4 % (11.5-14.5) Platelet Count 232 x10^3/uL (140-400) Neutrophils (%) (Auto) 79 % (31-73) Lymphocytes (%) (Auto) 15 % (24-48) Monocytes (%) (Auto) 4 % (0-9) Eosinophils (%) (Auto) 1 % (0-3) Basophils (%) (Auto) 0 % (0-3) Neutrophils # (Auto) 4.2 x10^3uL (1.8-7.7) Lymphocytes # (Auto) 0.8 x10^3/uL (1.0-4.8) Monocytes # (Auto) 0.2 x10^3/uL (0.0-1.1) Eosinophils # (Auto) 0.1 x10^3/uL (0.0-0.7) Basophils # (Auto) 0.0 x10^3/uL (0.0-0.2) WK-Xbj-[id number]-Type Natriuretic Peptide 2253 pg/mL (0-124) Triglycerides Level 1547 mg/dL (0-150) Cholesterol Level 306 mg/dL (0-200) LDL Cholesterol, Calculated mg/dL (0-100) VLDL Cholesterol, Calculated 309 mg/dL (0-40) Non-HDL Cholesterol Calculated mg/dL (0-129) HDL Cholesterol mg/dL (40-60) Cholesterol/HDL Ratio Test 01/12/18 07:40 01/12/18 08:00 01/12/18 11:13 Influenza Type A Antigen Negative (NEGATIVE) Influenza Type B Antigen Negative (NEGATIVE) O2 Saturation 97 % (92-99) Arterial Blood pH 7.33 (7.35-7.45) Arterial Blood pH (Temp corrected) 7.29 Arterial Blood pCO2 at Patient Temp 40 mmHg (35-46) Arterial Blood pCO2 (Temp correct) 44 mmHg Arterial Blood pO2 at Patient Temp 87 mmHg (75-108) Arterial Blood pO2 (Temp corrected) 100 mmHg Arterial Blood HCO3 20 mmol/L (21-28) Arterial Blood Base Excess -5 mmol/L (-3-3) FiO2 50 Glucose (Fingerstick) 191 mg/dL (70-99) Laboratory Tests Test 01/11/18 14:27 01/11/18 15:12 01/11/18 15:17 01/11/18 19:09 Glucose (Fingerstick) 337 mg/dL (70-99) 349 mg/dL (70-99) Bedside Troponin I 0.06 ng/ml (<0.08) O2 Saturation 95 % (92-99) Arterial Blood pH 7.20 (7.35-7.45) Arterial Blood pCO2 at Patient Temp 62 mmHg (35-46) Arterial Blood pO2 at Patient Temp 86 mmHg (75-108) Arterial Blood HCO3 24 mmol/L (21-28) Arterial Blood Base Excess -5 mmol/L (-3-3) FiO2 100 Test 01/11/18 19:33 01/11/18 20:00 01/11/18 23:50 01/12/18 00:07 Glucose (Fingerstick) 272 mg/dL (70-99) 227 mg/dL (70-99) Sodium Level 133 mmol/L (136-145) Potassium Level 4.3 mmol/L (3.5-5.1) Chloride Level 98 mmol/L (98-107) Carbon Dioxide Level 25 mmol/L (21-32) Anion Gap 10 (6-14) Blood Urea Nitrogen 4 mg/dL (8-26) Creatinine 0.8 mg/dL (0.7-1.3) Estimated GFR (Cockcroft-Gault) 105.5 BUN/Creatinine Ratio 5 (6-20) Glucose Level 347 mg/dL (70-99) Calcium Level 7.7 mg/dL (8.5-10.1) Phosphorus Level 2.6 mg/dL (2.6-4.7) Magnesium Level 1.5 mg/dL (1.8-2.4) Total Bilirubin 0.9 mg/dL (0.2-1.0) Aspartate Amino Transf (AST/SGOT) 37 U/L (15-37) Alanine Aminotransferase (ALT/SGPT) 36 U/L (16-63) Alkaline Phosphatase 91 U/L (46-116) Total Protein 6.0 g/dL (6.4-8.2) Albumin 2.7 g/dL (3.4-5.0) Albumin/Globulin Ratio 0.8 (1.0-1.7) Lactic Acid Level 3.1 mmol/L (0.4-2.0) Test 01/12/18 04:00 01/12/18 04:30 01/12/18 05:00 01/12/18 07:40 Sodium Level 137 mmol/L (136-145) Potassium Level 4.4 mmol/L (3.5-5.1) Chloride Level 103 mmol/L (98-107) Carbon Dioxide Level 23 mmol/L (21-32) Anion Gap 11 (6-14) Blood Urea Nitrogen 6 mg/dL (8-26) Creatinine 1.4 mg/dL (0.7-1.3) Estimated GFR (Cockcroft-Gault) 55.3 Glucose Level 266 mg/dL (70-99) Lactic Acid Level 0.4 mmol/L (0.4-2.0) Calcium Level 8.0 mg/dL (8.5-10.1) Phosphorus Level 3.0 mg/dL (2.6-4.7) Magnesium Level 1.9 mg/dL (1.8-2.4) Troponin I Quantitative 0.110 ng/mL (0.000-0.055) White Blood Count 5.3 x10^3/uL (4.0-11.0) Red Blood Count 4.17 x10^6/uL (4.30-5.70) Hemoglobin 13.9 g/dL (13.0-17.5) Hematocrit 39.7 % (39.0-53.0) Mean Corpuscular Volume 95 fL (79-100) Mean Corpuscular Hemoglobin 33 pg (25-35) Mean Corpuscular Hemoglobin Concent 35 g/dL (31-37) Red Cell Distribution Width 13.4 % (11.5-14.5) Platelet Count 232 x10^3/uL (140-400) Neutrophils (%) (Auto) 79 % (31-73) Lymphocytes (%) (Auto) 15 % (24-48) Monocytes (%) (Auto) 4 % (0-9) Eosinophils (%) (Auto) 1 % (0-3) Basophils (%) (Auto) 0 % (0-3) Neutrophils # (Auto) 4.2 x10^3uL (1.8-7.7) Lymphocytes # (Auto) 0.8 x10^3/uL (1.0-4.8) Monocytes # (Auto) 0.2 x10^3/uL (0.0-1.1) Eosinophils # (Auto) 0.1 x10^3/uL (0.0-0.7) Basophils # (Auto) 0.0 x10^3/uL (0.0-0.2) TV-Wir-U-Type Natriuretic Peptide 2253 pg/mL (0-124) Triglycerides Level 1547 mg/dL (0-150) Cholesterol Level 306 mg/dL (0-200) LDL Cholesterol, Calculated mg/dL (0-100) VLDL Cholesterol, Calculated 309 mg/dL (0-40) Non-HDL Cholesterol Calculated mg/dL (0-129) HDL Cholesterol mg/dL (40-60) Cholesterol/HDL Ratio Influenza Type A Antigen Negative (NEGATIVE) Influenza Type B Antigen Negative (NEGATIVE) Test 01/12/18 08:00 01/12/18 11:13 O2 Saturation 97 % (92-99) Arterial Blood pH 7.33 (7.35-7.45) Arterial Blood pH (Temp corrected) 7.29 Arterial Blood pCO2 at Patient Temp 40 mmHg (35-46) Arterial Blood pCO2 (Temp correct) 44 mmHg Arterial Blood pO2 at Patient Temp 87 mmHg (75-108) Arterial Blood pO2 (Temp corrected) 100 mmHg Arterial Blood HCO3 20 mmol/L (21-28) Arterial Blood Base Excess -5 mmol/L (-3-3) FiO2 50 Glucose (Fingerstick) 191 mg/dL (70-99) Images Images CT head scan with no acute changes. Chest x-ray with vascular congestion. Assessment/Plan Assessment/Plan 1. Acute respiratory failure. Patient has been intubated. He is now sedated. He is being managed by the pulmonary service. 2. Alcohol withdrawal. Hallucinations as noted above. Patient is on routine withdrawal protocols. 3. Possible diabetic ketoacidosis. Patient is on protocols as per the primary service. 4. Probable diastolic heart failure. Continuing present treatments. Echocardiogram to check LV function. 5. Metabolic encephalopathy. Treating underlying conditions as noted above. 6. Possible sepsis. Patient is on IV antibiotics and is followed by the ID service. 7. Chronic back pain status post laminectomy. Thank you for allowing us to participate in the care of your patient. FRANCISCA HESS MD Jan 12, 2018 14:01
[2018-01-12] MEDS: HEPARIN for SUB-Q USE 5,000 UNIT/ML VIAL. SQ SCH ×2 (14:09→21:31)
[2018-01-12 16:03] LABS: AMYLASE 120 U/L (25-115)
[2018-01-12 16:05] LABS: LIPASE 2127 U/L (73-393)
[2018-01-13] VITALS (24 sets, daily range): BP systolic 98–152; BP diastolic 59–79
[2018-01-13] MEDS: PIPERACILLIN/TAZOBACTAM 4.5 GM in IV NORMAL SALINE 100ML 100 ML IV SCH ×2 (00:32→06:48)
[2018-01-13] MEDS: DEXMEDETOMIDINE 200 MCG in IV NORMAL SALINE 50ML 48 ML IV PRN ×12 (01:30→23:06)
[2018-01-13] MEDS: MIDAZOLAM 100mg/100ml NS BAG 100 ML IV PRN ×3 (02:42→20:15)
[2018-01-13] MEDS: ACETAMINOPHEN 650 MG/20.3 ML SOLUTION. PEG PRN (02:42)
[2018-01-13] MEDS: IV NORMAL SALINE 1000ML BAG 1,000 ML IV SCH ×2 (04:57→13:00)
[2018-01-13 06:39] LABS: BASO % 0 % (0-3); EOS # 0.1 x10^3/uL (0.0-0.7); EOS % 2 % (0-3); HEMATOCRIT 35.7 % (39.0-53.0); HEMOGLOBIN 12.1 g/dL (13.0-17.5); LYMPH # 0.7 x10^3/uL (1.0-4.8); LYMPH % 11 % (24-48); MEAN CORPUSCULAR HEMOGLOBIN 33 pg (25-35); MEAN CORPUSCULAR HGB CONC 34 g/dL (31-37); MEAN CORPUSCULAR VOLUME 98 fL (79-100); MONO # 0.4 x10^3/uL (0.0-1.1); MONO % 7 % (0-9); NEUT # 5.2 x10^3uL (1.8-7.7); NEUT % 80 % (31-73); PLATELET COUNT 216 x10^3/uL (140-400); RED BLOOD COUNT 3.64 x10^6/uL (4.30-5.70); RED CELL DISTRIBUTION WIDTH 14.1 % (11.5-14.5); WHITE BLOOD COUNT 6.5 x10^3/uL (4.0-11.0)
[2018-01-13 06:49] LABS: CALCIUM 7.9 mg/dL (8.5-10.1); CREATININE 4.4 mg/dL (0.7-1.3); GFR 14.8; POTASSIUM 4.8 mmol/L (3.5-5.1)
[2018-01-13] MEDS: INSULIN LISPRO 300 UNITS/3 ML INSULN.PEN. SQ SCH ×4 (06:51→18:30)
[2018-01-13] MEDS: HEPARIN for SUB-Q USE 5,000 UNIT/ML VIAL. SQ SCH ×3 (06:51→21:34)
[2018-01-13] MEDS: IPRATRPIUM/ALBUTEROL 0.5/2.5MG 3 ML NEBU. NEB SCH ×4 (07:26→20:03)
[2018-01-13] MEDS: GEMFIBROZIL 600 MG TABLET. PO SCH ×2 (07:30→16:30)
[2018-01-13] MEDS: HALOPERIDOL LACTATE 5 MG/ML VIAL. IVP PRN ×2 (07:32→13:23)
[2018-01-13 07:45] LABS: BASE EXCESS ABG -7 mmol/L (-3-3); CORRECTED PCO2 ABG 44 mmHg; CORRECTED PH ABG 7.26; CORRECTED PO2 ABG 80 mmHg; HCO3 ABG 19 mmol/L (21-28); SAT O2 ABG 95 % (92-99)
--- NOTE | 2018-01-13 08:10 | PDOC ---
Infectious Disease Note Subjective Subjective Intubated/sedated ROS ROS unable to obtain Vital Sign Vital Signs Vital Signs Date Time Temp Pulse Resp B/P (MAP) Pulse Ox O2 Delivery O2 Flow Rate FiO2 01/13/18 07:51 22 Ventilator 01/13/18 07:26 95 01/13/18 07:00 100.7 93 107/64 (78) 100.7 Physical Exam PHYSICAL EXAM GENERAL: The patient is slightly propped up in bed, sedated and intubated. HEENT: Pupils small and equal. ETT and NGT in place. NECK: Supple/ No JVD LUNGS: Diminished aeration in the bases. HEART: Regular rhythm. ABDOMEN: Obese. Hypoactive bowel sounds, soft, no grimace or guarding to palpation. GENITOURINARY: Indwelling Cook in place. EXTREMITIES: No gross edema or cyanosis. SKIN: He has tattoos. Warm, diaphoretic without rash. Multiple small scabs on both legs. Peripheral IV looks okay, NEUROLOGIC: Unresponsive/sedated. Labs Lab Laboratory Tests Test 01/12/18 11:13 01/12/18 17:23 01/13/18 00:37 01/13/18 06:10 Glucose (Fingerstick) 191 mg/dL (70-99) 223 mg/dL (70-99) 189 mg/dL (70-99) White Blood Count 6.5 x10^3/uL (4.0-11.0) Red Blood Count 3.64 x10^6/uL (4.30-5.70) Hemoglobin 12.1 g/dL (13.0-17.5) Hematocrit 35.7 % (39.0-53.0) Mean Corpuscular Volume 98 fL (79-100) Mean Corpuscular Hemoglobin 33 pg (25-35) Mean Corpuscular Hemoglobin Concent 34 g/dL (31-37) Red Cell Distribution Width 14.1 % (11.5-14.5) Platelet Count 216 x10^3/uL (140-400) Neutrophils (%) (Auto) 80 % (31-73) Lymphocytes (%) (Auto) 11 % (24-48) Monocytes (%) (Auto) 7 % (0-9) Eosinophils (%) (Auto) 2 % (0-3) Basophils (%) (Auto) 0 % (0-3) Neutrophils # (Auto) 5.2 x10^3uL (1.8-7.7) Lymphocytes # (Auto) 0.7 x10^3/uL (1.0-4.8) Monocytes # (Auto) 0.4 x10^3/uL (0.0-1.1) Eosinophils # (Auto) 0.1 x10^3/uL (0.0-0.7) Basophils # (Auto) 0.0 x10^3/uL (0.0-0.2) Sodium Level 140 mmol/L (136-145) Potassium Level 4.8 mmol/L (3.5-5.1) Chloride Level 106 mmol/L (98-107) Carbon Dioxide Level 21 mmol/L (21-32) Anion Gap 13 (6-14) Blood Urea Nitrogen 25 mg/dL (8-26) Creatinine 4.4 mg/dL (0.7-1.3) Estimated GFR (Cockcroft-Gault) 14.8 Glucose Level 232 mg/dL (70-99) Calcium Level 7.9 mg/dL (8.5-10.1) Test 01/13/18 06:44 Glucose (Fingerstick) 207 mg/dL (70-99) Micro Microbiology 01/11/18 Blood Culture - Preliminary, Resulted NO GROWTH AFTER 1 DAY Objective Assessment Fever DENISHA Aspiration pneumonia. Acute encephalopathy with hallucinations and behavioral change. Lactic acidosis, improved. Heavy alcohol use. Hyperglycemia. Worsening back pain with urinary incontinence prior to admission. History of methicillin-resistant Staphylococcus aureus. Morbid obesity Plan Plan of Care Adjust Zosyn to 2.25 IV q 8 Cont Zyvox add Doxy Check Strep A/Strep pneumo/legionella F/u Sputum culture BC in process Monitor labs/temp/renal function closely Renal consulted D/w nursing BENITO GEIGER MD Jan 13, 2018 08:10
--- NOTE | 2018-01-13 08:10 | RAD ---
Portable AP semiupright chest x-ray performed at 6:20 AM COMPARISON: Bilateral pleural effusions. COMPARISON: January 12, 2018. FINDINGS: There is blunting of both lateral costophrenic angles consistent with small bilateral pleural effusions which are unchanged. Decreased lung volumes are seen bilaterally. There is persistent left lung base infiltrate or atelectasis which has progressed with non visualization of the entire left hemidiaphragm today. There is persistent right lung base infiltrate or atelectasis which is stable. This most likely represents atelectasis given the decreased lung volume and elevation of the right hemidiaphragm. No pneumothorax is seen. There've been no interval tube or line changes. The heart size and mediastinum are stable. IMPRESSION: Since the previous study, there has been an increase in left lung base infiltrate or atelectasis. Electronically signed by: George Tyler MD (01/13/2018 8:06 AM) [facility]
--- NOTE | 2018-01-13 08:17 | PDOC ---
PROGRESS NOTES Chief Complaint Chief Complaint 1. Acute respiratory failure. 2. etoh intoxication versus dependence, not protecting airway hence intubated at the emergency room 2. LLL pneumonia. 3. Sepsis - LLL pneumonia 4. Severe agitation, could be secondary to alcohol withdrawal versus sepsis versus others. 5. Hyperglycemia, with HYPERTRIGLYCERIDEMIA 6. Elevated BNP and troponin elevation 7. History of alcohol abuse. 8. Obesity BMI 39 - poss obstructive sleep apnea-hypopnea syndrome. History of Present Illness History of Present Illness Admitted with hallucinations and combative, was intubated soon after admissionTriglycerides are high at 1500 Ketonuria on UA Intubated sedated Overnight: Fever 100.7F, Creatinine 4.4 this morning and anuric, CXR shows worsening LLL infiltrate this morning A/P: 1. Acute respiratory failure - 22/550/50% peep 7, appears to be developing PNA in LL on CXR, on zyvox 2. etoh intoxication versus dependence, not protecting airway hence intubated at the emergency room 2. LLL pneumonia - changed to zyvox 3. Sepsis - LLL pneumonia - cont fluids 4. Acute renal failure - Cr 1.4-->4.4 - likely from sepsis, hypotension, will consult nephrology, may need HD in the near future 5. Severe agitation, could be secondary to alcohol withdrawal versus sepsis versus others. 6. Hyperglycemia, with HYPERTRIGLYCERIDEMIA - insulin GTT 7. Elevated BNP and troponin elevation - likely from sepsis 8. History of alcohol abuse - on precedex, versed, fentanyl for likely withdrawal 8. Obesity BMI 39 - poss obstructive sleep apnea-hypopnea syndrome. Heparin SQ Already on PPI IV nutrition consult for tube feeds We will need alcohol rehabilitation referrals once extubated Supportive care Further conditions pending course. Will need family meeting soon, he is acutely worsening Vitals Vitals Vital Signs Date Time Temp Pulse Resp B/P (MAP) Pulse Ox O2 Delivery O2 Flow Rate FiO2 01/13/18 08:00 94 22 117/69 (85) 98 Ventilator 01/13/18 07:00 100.7 100.7 Physical Exam Physical Exam GENERAL: The patient is slightly propped up in bed, sedated and intubated. HEENT: Pupils small and equal. ETT and NGT in place. NECK: Supple/ No JVD LUNGS: Diminished aeration in the bases. HEART: Regular rhythm. ABDOMEN: Obese. Hypoactive bowel sounds, soft, no grimace or guarding to palpation. GENITOURINARY: Indwelling Cook in place. EXTREMITIES: No gross edema or cyanosis. SKIN: He has tattoos. Warm, diaphoretic without rash. Multiple small scabs on both legs. Peripheral IV looks okay, NEUROLOGIC: Unresponsive/sedated. General: Other (sedated on a ventilator.) Heart: Regular rate Lungs: Other Abdomen: Normal bowel sounds Extremities: No clubbing, No cyanosis, No edema, Normal pulses Skin: No rashes, No breakdown Labs LABS Laboratory Tests Test 01/12/18 11:13 01/12/18 17:23 01/13/18 00:37 01/13/18 06:10 Glucose (Fingerstick) 191 mg/dL (70-99) 223 mg/dL (70-99) 189 mg/dL (70-99) White Blood Count 6.5 x10^3/uL (4.0-11.0) Red Blood Count 3.64 x10^6/uL (4.30-5.70) Hemoglobin 12.1 g/dL (13.0-17.5) Hematocrit 35.7 % (39.0-53.0) Mean Corpuscular Volume 98 fL (79-100) Mean Corpuscular Hemoglobin 33 pg (25-35) Mean Corpuscular Hemoglobin Concent 34 g/dL (31-37) Red Cell Distribution Width 14.1 % (11.5-14.5) Platelet Count 216 x10^3/uL (140-400) Neutrophils (%) (Auto) 80 % (31-73) Lymphocytes (%) (Auto) 11 % (24-48) Monocytes (%) (Auto) 7 % (0-9) Eosinophils (%) (Auto) 2 % (0-3) Basophils (%) (Auto) 0 % (0-3) Neutrophils # (Auto) 5.2 x10^3uL (1.8-7.7) Lymphocytes # (Auto) 0.7 x10^3/uL (1.0-4.8) Monocytes # (Auto) 0.4 x10^3/uL (0.0-1.1) Eosinophils # (Auto) 0.1 x10^3/uL (0.0-0.7) Basophils # (Auto) 0.0 x10^3/uL (0.0-0.2) Sodium Level 140 mmol/L (136-145) Potassium Level 4.8 mmol/L (3.5-5.1) Chloride Level 106 mmol/L (98-107) Carbon Dioxide Level 21 mmol/L (21-32) Anion Gap 13 (6-14) Blood Urea Nitrogen 25 mg/dL (8-26) Creatinine 4.4 mg/dL (0.7-1.3) Estimated GFR (Cockcroft-Gault) 14.8 Glucose Level 232 mg/dL (70-99) Calcium Level 7.9 mg/dL (8.5-10.1) Test 01/13/18 06:44 Glucose (Fingerstick) 207 mg/dL (70-99) Review of Systems Review of Systems Sedated on vent, unable to obtain Assessment and Plan Assessmemt and Plan Problems Medical Problems: (1) Diabetic keto-acidosis Status: Acute (2) Hyperglycemia due to type 2 diabetes mellitus Status: Acute (3) Metabolic acidemia Status: Acute (4) Metabolic encephalopathy Status: Acute Comment Review of Relevant I have reviewed the following items franklyn (where applicable) has been applied. Labs Laboratory Tests Test 01/11/18 12:10 01/11/18 14:27 01/11/18 15:12 01/11/18 15:17 White Blood Count 10.5 x10^3/uL (4.0-11.0) Red Blood Count 3.89 x10^6/uL (4.30-5.70) Hemoglobin 11.9 g/dL (13.0-17.5) Hematocrit 36.7 % (39.0-53.0) Mean Corpuscular Volume 94 fL (79-100) Mean Corpuscular Hemoglobin 31 pg (25-35) Mean Corpuscular Hemoglobin Concent 32 g/dL (31-37) Red Cell Distribution Width 13.0 % (11.5-14.5) Platelet Count 297 x10^3/uL (140-400) Neutrophils (%) (Auto) 81 % (31-73) Lymphocytes (%) (Auto) 13 % (24-48) Monocytes (%) (Auto) 5 % (0-9) Eosinophils (%) (Auto) 1 % (0-3) Basophils (%) (Auto) 2 % (0-3) Neutrophils # (Auto) 8.4 x10^3uL (1.8-7.7) Lymphocytes # (Auto) 1.3 x10^3/uL (1.0-4.8) Monocytes # (Auto) 0.5 x10^3/uL (0.0-1.1) Eosinophils # (Auto) 0.1 x10^3/uL (0.0-0.7) Basophils # (Auto) 0.2 x10^3/uL (0.0-0.2) Urine Collection Type Unknown Urine Color Yellow Urine Clarity Clear Urine pH 5.5 Urine Specific [place] 1.020 Urine Protein Negative mg/dL (NEG-TRACE) Urine Glucose (UA) >=1000 mg/dL (NEG) Urine Ketones (Stick) >=80 mg/dL (NEG) Urine Blood Trace (NEG) Urine Nitrite Negative (NEG) Urine Bilirubin Negative (NEG) Urine Urobilinogen Dipstick 1.0 mg/dL (0.2 mg/dL) Urine Leukocyte Esterase Negative (NEG) Urine RBC 6-10 /HPF (0-2) Urine WBC 1-4 /HPF (0-4) Urine Bacteria 0 /HPF (0-FEW) Sodium Level 129 mmol/L (136-145) Potassium Level 4.3 mmol/L (3.5-5.1) Chloride Level 91 mmol/L (98-107) Carbon Dioxide Level 20 mmol/L (21-32) Anion Gap 18 (6-14) Blood Urea Nitrogen 7 mg/dL (8-26) Creatinine 0.9 mg/dL (0.7-1.3) Estimated GFR (Cockcroft-Gault) 92.1 BUN/Creatinine Ratio 8 (6-20) Glucose Level 416 mg/dL (70-99) Calcium Level 8.5 mg/dL (8.5-10.1) Total Bilirubin 1.5 mg/dL (0.2-1.0) Aspartate Amino Transf (AST/SGOT) 44 U/L (15-37) Alanine Aminotransferase (ALT/SGPT) 47 U/L (16-63) Alkaline Phosphatase 105 U/L (46-116) Troponin I Quantitative 0.089 ng/mL (0.000-0.055) Total Protein 6.4 g/dL (6.4-8.2) Albumin 2.9 g/dL (3.4-5.0) Albumin/Globulin Ratio 0.8 (1.0-1.7) Urine Opiates Screen Neg (NEG) Urine Methadone Screen Neg (NEG) Urine Barbiturates Neg (NEG) Urine Phencyclidine Screen Neg (NEG) Urine Amphetamine/Methamphetamine Neg (NEG) Urine Benzodiazepines Screen Neg (NEG) Urine Cocaine Screen Neg (NEG) Urine Cannabinoids Screen Pos (NEG) Ethyl Alcohol Level < 10 mg/dL (0-10) Urine Ethyl Alcohol Neg (NEG) Glucose (Fingerstick) 337 mg/dL (70-99) 349 mg/dL (70-99) Bedside Troponin I 0.06 ng/ml (<0.08) Test 01/11/18 16:00 01/11/18 19:09 01/11/18 19:33 01/11/18 20:00 Nasal Screen MRSA (PCR) Negative (Negative) O2 Saturation 95 % (92-99) Arterial Blood pH 7.20 (7.35-7.45) Arterial Blood pCO2 at Patient Temp 62 mmHg (35-46) Arterial Blood pO2 at Patient Temp 86 mmHg (75-108) Arterial Blood HCO3 24 mmol/L (21-28) Arterial Blood Base Excess -5 mmol/L (-3-3) FiO2 100 Glucose (Fingerstick) 272 mg/dL (70-99) Sodium Level 133 mmol/L (136-145) Potassium Level 4.3 mmol/L (3.5-5.1) Chloride Level 98 mmol/L (98-107) Carbon Dioxide Level 25 mmol/L (21-32) Anion Gap 10 (6-14) Blood Urea Nitrogen 4 mg/dL (8-26) Creatinine 0.8 mg/dL (0.7-1.3) Estimated GFR (Cockcroft-Gault) 105.5 BUN/Creatinine Ratio 5 (6-20) Glucose Level 347 mg/dL (70-99) Calcium Level 7.7 mg/dL (8.5-10.1) Phosphorus Level 2.6 mg/dL (2.6-4.7) Magnesium Level 1.5 mg/dL (1.8-2.4) Total Bilirubin 0.9 mg/dL (0.2-1.0) Aspartate Amino Transf (AST/SGOT) 37 U/L (15-37) Alanine Aminotransferase (ALT/SGPT) 36 U/L (16-63) Alkaline Phosphatase 91 U/L (46-116) Total Protein 6.0 g/dL (6.4-8.2) Albumin 2.7 g/dL (3.4-5.0) Albumin/Globulin Ratio 0.8 (1.0-1.7) Test 01/11/18 23:50 01/12/18 00:07 01/12/18 04:00 01/12/18 04:30 Lactic Acid Level 3.1 mmol/L (0.4-2.0) 0.4 mmol/L (0.4-2.0) Glucose (Fingerstick) 227 mg/dL (70-99) Sodium Level 137 mmol/L (136-145) Potassium Level 4.4 mmol/L (3.5-5.1) Chloride Level 103 mmol/L (98-107) Carbon Dioxide Level 23 mmol/L (21-32) Anion Gap 11 (6-14) Blood Urea Nitrogen 6 mg/dL (8-26) Creatinine 1.4 mg/dL (0.7-1.3) Estimated GFR (Cockcroft-Gault) 55.3 Glucose Level 266 mg/dL (70-99) Calcium Level 8.0 mg/dL (8.5-10.1) Phosphorus Level 3.0 mg/dL (2.6-4.7) Magnesium Level 1.9 mg/dL (1.8-2.4) Troponin I Quantitative 0.110 ng/mL (0.000-0.055) White Blood Count 5.3 x10^3/uL (4.0-11.0) Red Blood Count 4.17 x10^6/uL (4.30-5.70) Hemoglobin 13.9 g/dL (13.0-17.5) Hematocrit 39.7 % (39.0-53.0) Mean Corpuscular Volume 95 fL (79-100) Mean Corpuscular Hemoglobin 33 pg (25-35) Mean Corpuscular Hemoglobin Concent 35 g/dL (31-37) Red Cell Distribution Width 13.4 % (11.5-14.5) Platelet Count 232 x10^3/uL (140-400) Neutrophils (%) (Auto) 79 % (31-73) Lymphocytes (%) (Auto) 15 % (24-48) Monocytes (%) (Auto) 4 % (0-9) Eosinophils (%) (Auto) 1 % (0-3) Basophils (%) (Auto) 0 % (0-3) Neutrophils # (Auto) 4.2 x10^3uL (1.8-7.7) Lymphocytes # (Auto) 0.8 x10^3/uL (1.0-4.8) Monocytes # (Auto) 0.2 x10^3/uL (0.0-1.1) Eosinophils # (Auto) 0.1 x10^3/uL (0.0-0.7) Basophils # (Auto) 0.0 x10^3/uL (0.0-0.2) Test 01/12/18 05:00 01/12/18 07:40 01/12/18 08:00 01/12/18 11:13 OZ-Bvy-[id number]-Type Natriuretic Peptide 2253 pg/mL (0-124) Triglycerides Level 1547 mg/dL (0-150) Cholesterol Level 306 mg/dL (0-200) LDL Cholesterol, Calculated mg/dL (0-100) VLDL Cholesterol, Calculated 309 mg/dL (0-40) Non-HDL Cholesterol Calculated mg/dL (0-129) HDL Cholesterol mg/dL (40-60) Cholesterol/HDL Ratio Amylase Level 120 U/L (25-115) Lipase 2127 U/L (73-393) Influenza Type A Antigen Negative (NEGATIVE) Influenza Type B Antigen Negative (NEGATIVE) O2 Saturation 97 % (92-99) Arterial Blood pH 7.33 (7.35-7.45) Arterial Blood pH (Temp corrected) 7.29 Arterial Blood pCO2 at Patient Temp 40 mmHg (35-46) Arterial Blood pCO2 (Temp correct) 44 mmHg Arterial Blood pO2 at Patient Temp 87 mmHg (75-108) Arterial Blood pO2 (Temp corrected) 100 mmHg Arterial Blood HCO3 20 mmol/L (21-28) Arterial Blood Base Excess -5 mmol/L (-3-3) FiO2 50 Glucose (Fingerstick) 191 mg/dL (70-99) Test 01/12/18 17:23 01/13/18 00:37 01/13/18 06:10 01/13/18 06:44 Glucose (Fingerstick) 223 mg/dL (70-99) 189 mg/dL (70-99) 207 mg/dL (70-99) White Blood Count 6.5 x10^3/uL (4.0-11.0) Red Blood Count 3.64 x10^6/uL (4.30-5.70) Hemoglobin 12.1 g/dL (13.0-17.5) Hematocrit 35.7 % (39.0-53.0) Mean Corpuscular Volume 98 fL (79-100) Mean Corpuscular Hemoglobin 33 pg (25-35) Mean Corpuscular Hemoglobin Concent 34 g/dL (31-37) Red Cell Distribution Width 14.1 % (11.5-14.5) Platelet Count 216 x10^3/uL (140-400) Neutrophils (%) (Auto) 80 % (31-73) Lymphocytes (%) (Auto) 11 % (24-48) Monocytes (%) (Auto) 7 % (0-9) Eosinophils (%) (Auto) 2 % (0-3) Basophils (%) (Auto) 0 % (0-3) Neutrophils # (Auto) 5.2 x10^3uL (1.8-7.7) Lymphocytes # (Auto) 0.7 x10^3/uL (1.0-4.8) Monocytes # (Auto) 0.4 x10^3/uL (0.0-1.1) Eosinophils # (Auto) 0.1 x10^3/uL (0.0-0.7) Basophils # (Auto) 0.0 x10^3/uL (0.0-0.2) Sodium Level 140 mmol/L (136-145) Potassium Level 4.8 mmol/L (3.5-5.1) Chloride Level 106 mmol/L (98-107) Carbon Dioxide Level 21 mmol/L (21-32) Anion Gap 13 (6-14) Blood Urea Nitrogen 25 mg/dL (8-26) Creatinine 4.4 mg/dL (0.7-1.3) Estimated GFR (Cockcroft-Gault) 14.8 Glucose Level 232 mg/dL (70-99) Calcium Level 7.9 mg/dL (8.5-10.1) Laboratory Tests Test 01/12/18 11:13 01/12/18 17:23 01/13/18 00:37 01/13/18 06:10 Glucose (Fingerstick) 191 mg/dL (70-99) 223 mg/dL (70-99) 189 mg/dL (70-99) White Blood Count 6.5 x10^3/uL (4.0-11.0) Red Blood Count 3.64 x10^6/uL (4.30-5.70) Hemoglobin 12.1 g/dL (13.0-17.5) Hematocrit 35.7 % (39.0-53.0) Mean Corpuscular Volume 98 fL (79-100) Mean Corpuscular Hemoglobin 33 pg (25-35) Mean Corpuscular Hemoglobin Concent 34 g/dL (31-37) Red Cell Distribution Width 14.1 % (11.5-14.5) Platelet Count 216 x10^3/uL (140-400) Neutrophils (%) (Auto) 80 % (31-73) Lymphocytes (%) (Auto) 11 % (24-48) Monocytes (%) (Auto) 7 % (0-9) Eosinophils (%) (Auto) 2 % (0-3) Basophils (%) (Auto) 0 % (0-3) Neutrophils # (Auto) 5.2 x10^3uL (1.8-7.7) Lymphocytes # (Auto) 0.7 x10^3/uL (1.0-4.8) Monocytes # (Auto) 0.4 x10^3/uL (0.0-1.1) Eosinophils # (Auto) 0.1 x10^3/uL (0.0-0.7) Basophils # (Auto) 0.0 x10^3/uL (0.0-0.2) Sodium Level 140 mmol/L (136-145) Potassium Level 4.8 mmol/L (3.5-5.1) Chloride Level 106 mmol/L (98-107) Carbon Dioxide Level 21 mmol/L (21-32) Anion Gap 13 (6-14) Blood Urea Nitrogen 25 mg/dL (8-26) Creatinine 4.4 mg/dL (0.7-1.3) Estimated GFR (Cockcroft-Gault) 14.8 Glucose Level 232 mg/dL (70-99) Calcium Level 7.9 mg/dL (8.5-10.1) Test 01/13/18 06:44 Glucose (Fingerstick) 207 mg/dL (70-99) Microbiology 01/11/18 Blood Culture - Preliminary, Resulted NO GROWTH AFTER 1 DAY Medications Current Medications Lorazepam (Ativan) 1 mg 1X ONCE IV Last administered on 01/11/18at 12:25; Start 01/11/18 at 12:30; Stop 01/11/18 at 12:31; Status DC Lorazepam (Ativan) 2 mg 1X ONCE IV Last administered on 01/11/18at 13:03; Start 01/11/18 at 12:45; Stop 01/11/18 at 12:46; Status DC Dextrose/Sodium Chloride 1,000 ml @ 0 mls/hr 1X ONCE IV ; Start 01/11/18 at 13:00; Stop 01/11/18 at 13:16; Status DC Sodium Chloride 1,000 ml @ 1,000 mls/hr 1X ONCE IV Last administered on 01/11at 13:41; Start 01/11/18 at 13:30; Stop 01/11/18 at 14:29; Status DC Sodium Chloride 1,000 ml @ 1,000 mls/hr 1X ONCE IV Last administered on 01/11at 13:42; Start 01/11/18 at 13:30; Stop 01/11/18 at 14:29; Status DC Lorazepam (Ativan) 1 mg 1X ONCE IV Last administered on 01/11/18at 15:08; Start 01/11/18 at 13:30; Stop 01/11/18 at 13:31; Status DC Lorazepam (Ativan) 1 mg 1X ONCE IV Last administered on 01/11/18at 13:43; Start 01/11/18 at 13:30; Stop 01/11/18 at 13:33; Status DC Aspirin (Children'S Aspirin) 324 mg 1X ONCE PO Last administered on at 14:02; Start 01/11/18 at 13:45; Stop 01/11/18 at 13:46; Status DC Haloperidol Lactate (Haldol Inj) 5 mg PRN Q6HRS PRN IVP SEVERE AGITATION Last administered on 01/13/18at 07:32; Start 01/11/18 at 16:15 Lorazepam (Ativan) 4 mg PRN Q4HRS PRN IV ANXIETY / AGITATION Last administered on 01/12/18at 15:41; Start 01/11/18 at 16:15 Multivitamins 10 ml/Thiamine HCl 100 mg/Folic Acid 1 mg/Sodium Chloride 1,011.2 ml @ 125 mls/ hr DAILY IV Last administered on 01/12/18at 08:45; Start at 17:00 Dexmedetomidine HCl 200 mcg/ Sodium Chloride 50 ml @ 0 mls/hr CONT PRN IV PER PROTOCOL Last administered on 01/11/18at 17:00; Start 01/11/18 at 16:45; Stop 01/11/18 at 18:38; Status DC Sodium Chloride 500 ml @ 500 mls/hr 1X PRN PRN IV SEE COMMENTS; Start at 16:45 Atropine Sulfate (ATROPINE 0.5mg SYRINGE) 0.5 mg PRN Q5MIN PRN IV SEE COMMENTS ; Start 01/11/18 at 16:45 Lorazepam (Ativan) 4 mg PRN Q1HR PRN PO For CIWA 8-14; Start 01/11/18 at 18:15 Lorazepam (Ativan) 8 mg PRN Q1HR PRN PO For CIWA 15 or greater; Start at 18:15 Lorazepam (Ativan) 2 mg PRN Q1HR PRN IV For CIWA 8-14; Start 01/11/18 at 18:15 Lorazepam (Ativan) 4 mg PRN Q1HR PRN IV For CIWA 15 or greater Last administered on 01/12/18at 23:11; Start 01/11/18 at 18:15 Diphenhydramine HCl (Benadryl) 25 mg PRN Q15MIN PRN IVP EPS symptoms 2'Haldol admin; Start 01/11/18 at 18:15 Olanzapine (ZyPREXA IM) 10 mg 1X ONCE IM Last administered on 01/11/18at 18:42 ; Start 01/11/18 at 18:45; Stop 01/11/18 at 18:46; Status DC Dexmedetomidine HCl 200 mcg/ Sodium Chloride 50 ml @ 7 mls/hr CONT PRN IV PER PROTOCOL; Start 01/11/18 at 18:38; Stop 01/11/18 at 21:19; Status DC Propofol 100 ml @ As Directed STK-MED ONCE IV ; Start 01/11/18 at 18:43; Stop 01/11/18 at 18:44; Status DC Succinylcholine Chloride (Anectine) 200 mg STK-MED ONCE .ROUTE ; Start at 18:44; Stop 01/11/18 at 18:45; Status DC Fentanyl Citrate 30 ml @ 2.5 mls/hr CONT PRN IV PER PROTOCOL Last administered on 01/13/18at 07:51; Start 01/11/18 at 19:00 Propofol 100 ml @ 4.2 mls/hr CONT PRN IV PER PROTOCOL; Start 01/11/18 at 18: 45; Status Cancel Fentanyl Citrate (Fentanyl 2ml Vial) 25 mcg PRN Q1HR PRN IV SEE COMMENTS.; Start 01/11/18 at 18:45 Fentanyl Citrate (Fentanyl 2ml Vial) 50 mcg PRN Q1HR PRN IV SEE COMMENTS. Last administered on 01/11/18at 20:21; Start 01/11/18 at 18:45 Morphine Sulfate (Morphine Sulfate) 2 mg PRN Q1HR PRN IV SEE COMMENTS.; Start 01/11/18 at 18:45 Morphine Sulfate (Morphine Sulfate) 4 mg PRN Q1HR PRN IV SEE COMMENTS.; Start 01/11/18 at 18:45 Hydromorphone HCl (Dilaudid) 0.2 mg PRN Q1HR PRN IV SEE COMMENTS.; Start 01/11 at 18:45 Hydromorphone HCl (Dilaudid) 0.4 mg PRN Q1HR PRN IV SEE COMMENTS.; Start 01/11 at 18:45 Morphine Sulfate (Morphine Sulfate) 2 mg PRN Q1HR PRN IV ; Start 01/11/18 at 18:45; Status UNV Morphine Sulfate (Morphine Sulfate) 4 mg PRN Q1HR PRN IV ; Start 01/11/18 at 18:45; Status UNV Midazolam HCl 100 ml @ 1 mls/hr CONT PRN IV PER PROTOCOL Last administered on 01/13/18at 02:42; Start 01/11/18 at 18:45 Epinephrine HCl (EPINEPHrine SYRINGE) 1 mg STK-MED ONCE .ROUTE ; Start at 18:56; Stop 01/11/18 at 18:57; Status DC Propofol 100 ml @ 2.103 mls/ hr CONT PRN IV SEE I/O RECORD Last administered on 01/11/18at 20:23; Start 01/11/18 at 19:00 Vecuronium Wesley (Norcuron Bolus) 10 mg STK-MED ONCE IV ; Start 01/11/18 at 19:02; Stop 01/11/18 at 19:03; Status DC Vancomycin HCl (Vanco Per Pharmacy) 1 each PRN DAILY PRN MC SEE COMMENTS Last administered on 01/12/18at 11:47; Start 01/11/18 at 20:15; Stop 01/12/18 at 13 :14; Status DC Piperacillin Sod/ Tazobactam Sod (Zosyn Per Pharmacy) 1 each PRN DAILY PRN MC SEE COMMENTS; Start 01/11/18 at 20:15; Stop 01/13/18 at 08:00; Status DC Piperacillin Sod/ Tazobactam Sod 4.5 gm/Sodium Chloride 100 ml @ 200 mls/hr Q6HRS IV Last administered on 01/13/18at 06:48; Start 01/12/18 at 00:00; Stop 01/13/18 at 07:57; Status DC Vancomycin HCl 2 gm/Sodium Chloride 500 ml @ 250 mls/hr 1X ONCE IV Last administered on 01/11/18at 21:00; Start 01/11/18 at 21:00; Stop 01/11/18 at 22 :59; Status DC Insulin Human Lispro (HumaLOG) 0-7 UNITS Q6HRS SQ Last administered on at 06:51; Start 01/12/18 at 00:00 Dextrose (Dextrose 50%-Water Syringe) 12.5 gm PRN Q15MIN PRN IV SEE COMMENTS; Start 01/11/18 at 21:00 Sodium Chloride 1,000 ml @ 100 mls/hr Q10H IV Last administered on 01/13/18at 04:57; Start 01/11/18 at 21:00 Dexmedetomidine HCl 200 mcg/ Sodium Chloride 50 ml @ 0 mls/hr CONT PRN IV PER PROTOCOL Last administered on 01/13/18at 07:32; Start 01/11/18 at 21:00 Acetaminophen (Tylenol) 650 mg PRN Q6HRS PRN PEG MILD PAIN / TEMP Last administered on 01/13/18at 02:42; Start 01/11/18 at 21:30 Magnesium Sulfate 50 ml @ 25 mls/hr 1X ONCE IV Last administered on at 01:27; Start 01/12/18 at 01:00; Stop 01/12/18 at 02:59; Status DC Sodium Chloride 1,000 ml @ 1,000 mls/hr 1X ONCE IV Last administered on 01/12at 01:00; Start 01/12/18 at 04:30; Stop 01/12/18 at 05:29; Status DC Vancomycin HCl 1.5 gm/Sodium Chloride 500 ml @ 250 mls/hr Q12H IV Last administered on 01/12/18at 08:44; Start 01/12/18 at 09:00; Stop 01/12/18 at 13 :14; Status DC Vancomycin HCl (Vancomycin Trough Level) 1 each 1X ONCE MC ; Start 01/12/18 at 20:30; Stop 01/12/18 at 20:30; Status DC Sodium Chloride 500 ml @ 500 mls/hr 1X ONCE IV Last administered on at 07:26; Start 01/12/18 at 07:00; Stop 01/12/18 at 07:59; Status DC Famotidine (Pepcid Vial) 20 mg BID IVP Last administered on 01/12/18at 20:21; Start 01/12/18 at 09:00 Albuterol/ Ipratropium (Duoneb) 3 ml RTQID NEB Last administered on 01/13/18at 07:26; Start 01/12/18 at 08:00 Heparin Sodium (Porcine) (Heparin Sodium) 5,000 unit Q8HRS SQ Last administered on 01/13/18at 06:51; Start 01/12/18 at 14:00 Gemfibrozil (Lopid) 600 mg BIDBFRMEAL PO ; Start 01/12/18 at 10:00 Linezolid/Dextrose 300 ml @ 300 mls/hr Q12HR IV Last administered on at 20:20; Start 01/12/18 at 21:00 Vecuronium Wesley (Norcuron Bolus) 10 mg STK-MED ONCE IV ; Start 01/11/18 at 19:00; Stop 01/13/18 at 07:59; Status DC Succinylcholine Chloride (Anectine) 200 mg STK-MED ONCE .ROUTE ; Start at 19:00; Stop 01/13/18 at 07:59; Status DC Propofol (Diprivan) 1,000 mg STK-MED ONCE IV ; Start 01/11/18 at 19:00; Stop 01/13/18 at 07:59; Status DC Epinephrine HCl (EPINEPHrine SYRINGE) 1 mg STK-MED ONCE .ROUTE ; Start at 19:00; Stop 01/13/18 at 07:59; Status DC Piperacillin Sod/ Tazobactam Sod 2.25 gm/Sodium Chloride 50 ml @ 100 mls/hr Q8HRS IV ; Start 01/13/18 at 14:00 Doxycycline Hyclate 100 mg/ Dextrose 100 ml @ 50 mls/hr Q12HR IV ; Start 01/13 at 09:00 Active Scripts Active Reported [hemp botanicals] Maxitrol Eye Drops (Brandon/Polymyx B Sulf/Dexameth) 5 Ml Drops.susp 1 Drop OD QID Multivitamins (Multivitamin) 1 Each Tablet 1 Tab PO DAILY Magnesium (Magnesium Oxide) 400 Mg Capsule 1 Cap PO DAILY Calcium (Calcium Carbonate) 500 Mg Tab.chew 500 Mg PO Lansoprazole 30 Mg Capsule.dr 1 Cap PO DAILY Losartan Potassium 25 Mg Tablet 25 Mg PO DAILY Tizanidine Hcl 4 Mg Tablet 1 Tab PO TID Tramadol Hcl 50 Mg Tablet 50 Mg PO DAILY PRN Bystolic (Nebivolol Hcl) 20 Mg Tablet 20 Mg PO DAILY Cymbalta (Duloxetine Hcl) 20 Mg Capsule.dr 1 Cap PO DAILY Valacyclovir (Valacyclovir Hcl) 1,000 Mg Tablet 1 Tab PO DAILY Ibuprofen 400 Mg Tablet 400 Mg PO PRN Q6HRS PRN Bystolic (Nebivolol) 10 Mg Tablet 20 Mg PO DAILY Amlodipine Besylate 10 Mg Tablet 10 Mg PO DAILY Vitals/I & O Vital Sign - Last 24 Hours 01/12/18 01/12/18 01/12/18 01/12/18 09:00 09:10 10:00 11:00 Temp 102.5 102.5 Pulse 92 99 94 Resp 26 27 27 B/P (MAP) 137/67 (90) 87/52 (64) 102/61 (75) Pulse Ox 93 98 95 97 O2 Delivery Ventilator Ventilator Ventilator Ventilator 01/12/18 01/12/18 01/12/1801/12/18 11:57 12:00 12:00 12:32 Temp 102.3 102.3 Pulse 103 Resp 27 B/P (MAP) 86/55 (65) Pulse Ox 94 96 94 O2 Delivery Ventilator Mechanical Ventilator Ventilator Ventilator 01/12/18 01/12/18 01/12/18 01/12/18 13:00 13:59 14:00 15:00 Temp 101.1 101.1 Pulse 102 97 95 Resp 27 27 26 B/P (MAP) 87/58 (68) 87/50 (62) 116/70 (85) Pulse Ox 96 96 96 O2 Delivery Ventilator Ventilator Ventilator 01/12/18 01/12/18 01/12/18 01/12/18 15:05 16:00 16:00 17:00 Temp 100.8 100.8 Pulse 89 98 Resp 26 B/P (MAP) 93/70 (78) 88/49 (62) Pulse Ox 95 96 96 O2 Delivery Ventilator Mechanical Ventilator Ventilator Ventilator 01/12/18 01/12/18 01/12/18 01/12/18 17:21 17:51 18:00 18:20 Temp 100.2 100.2 Pulse 96 Resp 27 27 B/P (MAP) 92/61 (71) Pulse Ox 95 96 97 O2 Delivery Ventilator Ventilator Ventilator 01/12/18 01/12/18 01/12/18 01/12/18 19:00 19:46 20:00 20:00 Temp 100.0 100.0 Pulse 94 96 Resp 25 22 B/P (MAP) 99/58 (72) 110/61 (77) Pulse Ox 95 93 97 O2 Delivery Ventilator Ventilator Mechanical Ventilator Ventilator 01/12/18 01/12/18 01/12/18 01/12/18 21:00 22:00 22:35 23:00 Pulse 96 96 96 Resp 25 25 25 B/P (MAP) 125/65 (85) 116/67 (83) 143/89 (107) Pulse Ox 95 95 95 95 O2 Delivery Ventilator Ventilator Ventilator 01/12/18 01/13/18 01/13/18 01/13/18 23:15 00:00 00:01 01:00 Temp 99.4 99.4 Pulse 98 96 Resp 22 25 B/P (MAP) 109/61 (77) 114/63 (80) Pulse Ox 94 97 95 O2 Delivery Ventilator Mechanical Ventilator Ventilator Ventilator 01/13/18 01/13/18 01/13/18 01/13/18 01:28 02:00 03:00 03:23 Temp 102.1 102.1 Pulse 94 94 Resp 25 26 B/P (MAP) 108/63 (78) 119/66 (83) Pulse Ox 94 95 95 94 O2 Delivery Ventilator Ventilator Ventilator Ventilator 01/13/18 01/13/18 01/13/18 01/13/18 03:37 04:00 04:00 04:07 Pulse 94 Resp 26 B/P (MAP) 109/66 (80) Pulse Ox 94 95 95 O2 Delivery Ventilator Mechanical Ventilator 01/13/18 01/13/18 01/13/18 01/13/18 05:00 05:54 06:00 07:00 Temp 100.7 100.7 Pulse 94 96 93 Resp 30 24 22 B/P (MAP) 109/69 (82) 113/59 (77) 107/64 (78) Pulse Ox 95 95 95 95 O2 Delivery Ventilator Ventilator Ventilator Ventilator 01/13/18 01/13/18 01/13/18 01/13/18 07:26 07:51 08:00 08:00 Pulse 94 Resp 22 22 B/P (MAP) 117/69 (85) Pulse Ox 95 98 O2 Delivery Ventilator Ventilator Mechanical Ventilator Ventilator Intake and Output 01/12/18 01/12/18 01/13/18 15:00 23:00 07:00 Intake Total 1160 ml 3197 ml 1880 ml Output Total 95 ml 777 ml 34 ml Balance 1065 ml 2420 ml 1846 ml JOSE APPIAH MD Jan 13, 2018 08:17
[2018-01-13 08:37] LABS: PCO2 ABG 41 mmHg (35-46); PO2 ABG 74 mmHg (75-108)
[2018-01-13] MEDS: FAMOTIDINE 20 MG/2 ML VIAL IVP SCH ×2 (09:12→20:49)
[2018-01-13] MEDS: MULTIVIT INFUSN,ADULT 4,VIT K 10 ML, THIAMINE INJ 100 MG, FOLIC ACID INJ 1 MG in IV NOR... IV SCH (09:12)
[2018-01-13] MEDS ORDERED: SODIUM BICARB ADULT 8.4% 50 MEQ/50 ML DISP.SYRIN. IV ONE (09:15)
--- NOTE | 2018-01-13 09:31 | CARD ---
MR#: [id number] Date of Study: 01/13/2018 Ordering Physician: FRANCISCA HESS, Referring Physician: DREA SORENSON Tech: Rach Carson NROY APPROVED REPORT EXAM: Two-dimensional and M-mode echocardiogram with Doppler and color Doppler. Other Information Quality : Technically LimitedHR: 94bpm Rhythm : NSRTechnically limited study due to body habitus. INDICATION Respirartory failure 2D DIMENSIONS RVDd3.5 (2.9-3.5cm)IVSd1.1 (0.7-1.1cm) Aortic Root(2D)3.8 (2.0-3.7cm)LVDd4.8 (3.9-5.9cm) LVOT Diameter2.3 (1.8-2.4cm)PWd1.0 (0.7-1.1cm) LVDs3.2 (2.5-4.0cm)FS (%) 33.7 % SV66.7 mlLVEF(%)62.5 (>50%) M-Mode DIMENSIONS Left Atrium(MM)3.59 (2.5-4.0cm)Aortic Root3.51 (2.2-3.7cm) Aortic Valve AoV Peak Jefe.133.6cm/sAoV VTI23.0cm AO Peak GR.7.1mmHgLVOT VTI 15.82cm AO Mean GR.4mmHgAVA (VTI)2.80cm2 Mitral Valve MV E Rrsvulhl13.1cm/sMV DECEL [id number] MV A Vjnqzhpg51.6cm/sE/A Ratio1.2 MV A [id number] TDI Lateral E' P. V9.65cm/sMedial E' P. V8.04cm/s E/Lateral E'9.6E/Medial E'11.6 LEFT VENTRICLE The left ventricle is normal size. There is borderline concentric left ventricular hypertrophy. The l eft ventricular systolic function is normal and the ejection fraction is within normal range. The Eje ction Fraction is 60-65%. There is normal LV segmental wall motion. The left ventricular diastolic fu nction and filling is normal for age. RIGHT VENTRICLE The right ventricle is normal size. There is normal right ventricular wall thickness. The right ventr icular systolic function is normal. ATRIA The left atrium size is normal. The right atrium size is normal. The interatrial septum is intact wit h no evidence for an atrial septal defect or patent foramen ovale as noted on 2-D or Doppler imaging. AORTIC VALVE The aortic valve is normal in structure and function. The aortic valve is trileaflet. Doppler and Col or Flow revealed no significant aortic regurgitation. There is no significant aortic valvular stenosi s. MITRAL VALVE The mitral valve is normal in structure and function. There is no evidence of mitral valve prolapse. There is no mitral valve stenosis. Doppler and Color Flow revealed no mitral valve regurgitation note d. TRICUSPID VALVE The tricuspid valve is normal in structure and function. Doppler and Color Flow revealed no tricuspid valve regurgitation noted. There is no tricuspid valve prolapse or vegetation. There is no tricuspid valve stenosis. PULMONIC VALVE Doppler and Color Flow revealed no pulmonic valvular regurgitation. There is no pulmonic valvular liseth nosis. GREAT VESSELS The aortic root is mildly enlarged. The ascending aorta is DILATED at 4.2 cm PERICARDIAL EFFUSION There is no evidence of significant pericardial effusion. Critical Notification Critical Value: No <Conclusion> The left ventricular systolic function is normal and the ejection fraction is within normal range. Th e Ejection Fraction is 60-65%. There is normal LV segmental wall motion. The ascending aorta is DILATED at 4.2 cm (Correlate with BSA) Signed by : Kris Velasquez, Electronically Approved : 01/13/2018 09:30:33
[2018-01-13] MEDS: DOXYCYCLINE HYCLATE 100 MG in IV DEXTROSE 5% 100ML 100 ML IV SCH ×2 (10:03→20:49)
--- NOTE | 2018-01-13 10:24 | PDOC ---
CARDIO Progress Notes Date and Time Date of Service 01/13/2018 Time of Evaluation 1010 Subjective Subjective: Other (intubated/sedated) Vitals Vitals Vital Signs Date Time Temp Pulse Resp B/P (MAP) Pulse Ox O2 Delivery O2 Flow Rate FiO2 01/13/18 09:00 95 24 117/65 (82) 98 Ventilator 01/13/18 07:00 100.7 100.7 Weight Weight [ ] Input and Output Intake and Output Intake and Output 01/13/18 07:00 Intake Total 6237 ml Output Total 906 ml Balance 5331 ml IV Total 6177 ml Other 60 ml Output Urine Total 206 ml Gastric Drainage Total 700 ml Laboratory Labs Laboratory Tests Test 01/12/18 11:13 01/12/18 17:23 01/13/18 00:37 01/13/18 06:10 Glucose (Fingerstick) 191 mg/dL (70-99) 223 mg/dL (70-99) 189 mg/dL (70-99) White Blood Count 6.5 x10^3/uL (4.0-11.0) Red Blood Count 3.64 x10^6/uL (4.30-5.70) Hemoglobin 12.1 g/dL (13.0-17.5) Hematocrit 35.7 % (39.0-53.0) Mean Corpuscular Volume 98 fL (79-100) Mean Corpuscular Hemoglobin 33 pg (25-35) Mean Corpuscular Hemoglobin Concent 34 g/dL (31-37) Red Cell Distribution Width 14.1 % (11.5-14.5) Platelet Count 216 x10^3/uL (140-400) Neutrophils (%) (Auto) 80 % (31-73) Lymphocytes (%) (Auto) 11 % (24-48) Monocytes (%) (Auto) 7 % (0-9) Eosinophils (%) (Auto) 2 % (0-3) Basophils (%) (Auto) 0 % (0-3) Neutrophils # (Auto) 5.2 x10^3uL (1.8-7.7) Lymphocytes # (Auto) 0.7 x10^3/uL (1.0-4.8) Monocytes # (Auto) 0.4 x10^3/uL (0.0-1.1) Eosinophils # (Auto) 0.1 x10^3/uL (0.0-0.7) Basophils # (Auto) 0.0 x10^3/uL (0.0-0.2) Sodium Level 140 mmol/L (136-145) Potassium Level 4.8 mmol/L (3.5-5.1) Chloride Level 106 mmol/L (98-107) Carbon Dioxide Level 21 mmol/L (21-32) Anion Gap 13 (6-14) Blood Urea Nitrogen 25 mg/dL (8-26) Creatinine 4.4 mg/dL (0.7-1.3) Estimated GFR (Cockcroft-Gault) 14.8 Glucose Level 232 mg/dL (70-99) Calcium Level 7.9 mg/dL (8.5-10.1) Test 01/13/18 06:44 01/13/18 07:25 Glucose (Fingerstick) 207 mg/dL (70-99) O2 Saturation 95 % (92-99) Arterial Blood pH 7.28 (7.35-7.45) Arterial Blood pH (Temp corrected) 7.26 Arterial Blood pCO2 at Patient Temp 41 mmHg (35-46) Arterial Blood pCO2 (Temp correct) 44 mmHg Arterial Blood pO2 at Patient Temp 74 mmHg (75-108) Arterial Blood pO2 (Temp corrected) 80 mmHg Arterial Blood HCO3 19 mmol/L (21-28) Arterial Blood Base Excess -7 mmol/L (-3-3) Microbiology Micro Microbiology 01/11/18 Blood Culture - Preliminary, Resulted NO GROWTH AFTER 1 DAY Physical Exam HEENT: Neck Supple W Full Motion, Other (intubated) Chest: Symmetric LUNGS: Clear to Auscultation, Other (mechanical ventilation) Abdomen: Other (obese) Extremities: No Edema Neurology: other (sedated) Assessment Assessment 1. Acute respiratory failure. s/p intubation, remains on vent. Continued treatment as per pulmonary 2. Metabolic encephalopathy. Auditory and visual hallucinations 3. H/o recent alcohol abuse. ? alcohol withdrawal. ETOH negative upon arrival. 4. Lactic acidosis, sepsis. ? source. Ongoing IV antibiotic therapy 5. Acute diastolic HF. NT Pro BNP mildly elevated; initial CXR with vascular congestion. better compensated. LVEF 60% 6. Elevated troponin; Highest 0.110. Most probably type II, demand ischemia. Supportive care from a CV standpoint. 7. Hyperglycemia, POA. As per PCP 8. Hypertriglyceridemia; 1547 9. Ascending aortic aneurysm; 4.2 cm per echo. 10. BERTHA, hypoventilation syndrome. 11. DENISHA: Cr ^ 4.4. Marginal UOP. IV fluids. renal consulted. 12. Substance abuse; + marijuana MAURICE RAY APRN Jan 13, 2018 10:24
--- NOTE | 2018-01-13 11:13 | PDOC2 ---
CONSULT Date of Consult Date of Consult DATE: 01/13/18 TIME: 11:04 Reason for Consult Reason for Consult: DENISHA Identification/Chief Complaint Chief Complaint Unable to Obtain, Pt Intubated, sedated Source Source: Chart review History of Present Illness Reason for Visit: This patient is a 42-year-old male who was brought to the ER on by his father for evaluation of uncontrolled behavioral issues that are associated with auditory and visual hallucinations. Apparently, over the last 2 weeks, he had been drinking 1-2/5 of whiskey daily. The patient was intubated for airway protection. A head CT was unremarkable. Chest x-ray revealed right mid lung interstitial opacity and mild pulmonary vascular congestion. He has been running fevers ranging from 100-102.9. B He has a history of chronic back pain, status post multiple back surgeries. He was treated for an epidural abscess with negative cultures in 08/2016 for which he was treated with IV antibiotics. Recently, he had been complaining of worsening back pain and urinary incontinence. He was scheduled to have an open MRI prior to this admission. He recently traveled to the [facility] and was exposed to fiery ants with multiple bites on his legs. He had a recent bowel movement yesterday. PMHx-- :1. History of MRSA, Chronic back pain, Hypertension, Peptic ulcer disease. Depression, Obesity, Gout,History of epidural abscess with negative cultures status post I and D in Past Medical History Cardiovascular: HTN GI: GERD Psych: Depression Musculoskeletal: low back pain Past Surgical History Past Surgical History: Total knee replacement, Other (lamminectomy, discectomy, ) Family History Family History: Heart Disease Social History ALCOHOL: heavy Current Problem List Problem List Problems Medical Problems: (1) Diabetic keto-acidosis Status: Acute (2) Hyperglycemia due to type 2 diabetes mellitus Status: Acute (3) Metabolic acidemia Status: Acute (4) Metabolic encephalopathy Status: Acute Current Medications Current Medications Current Medications Lorazepam (Ativan) 1 mg 1X ONCE IV Last administered on 01/11/18at 12:25; Start 01/11/18 at 12:30; Stop 01/11/18 at 12:31; Status DC Lorazepam (Ativan) 2 mg 1X ONCE IV Last administered on 01/11/18at 13:03; Start 01/11/18 at 12:45; Stop 01/11/18 at 12:46; Status DC Dextrose/Sodium Chloride 1,000 ml @ 0 mls/hr 1X ONCE IV ; Start 01/11/18 at 13:00; Stop 01/11/18 at 13:16; Status DC Sodium Chloride 1,000 ml @ 1,000 mls/hr 1X ONCE IV Last administered on 01/11at 13:41; Start 01/11/18 at 13:30; Stop 01/11/18 at 14:29; Status DC Sodium Chloride 1,000 ml @ 1,000 mls/hr 1X ONCE IV Last administered on 01/11at 13:42; Start 01/11/18 at 13:30; Stop 01/11/18 at 14:29; Status DC Lorazepam (Ativan) 1 mg 1X ONCE IV Last administered on 01/11/18at 15:08; Start 01/11/18 at 13:30; Stop 01/11/18 at 13:31; Status DC Lorazepam (Ativan) 1 mg 1X ONCE IV Last administered on 01/11/18at 13:43; Start 01/11/18 at 13:30; Stop 01/11/18 at 13:33; Status DC Aspirin (Children'S Aspirin) 324 mg 1X ONCE PO Last administered on at 14:02; Start 01/11/18 at 13:45; Stop 01/11/18 at 13:46; Status DC Haloperidol Lactate (Haldol Inj) 5 mg PRN Q6HRS PRN IVP SEVERE AGITATION Last administered on 01/13/18at 07:32; Start 01/11/18 at 16:15 Lorazepam (Ativan) 4 mg PRN Q4HRS PRN IV ANXIETY / AGITATION Last administered on 01/13/18at 09:12; Start 01/11/18 at 16:15 Multivitamins 10 ml/Thiamine HCl 100 mg/Folic Acid 1 mg/Sodium Chloride 1,011.2 ml @ 125 mls/ hr DAILY IV Last administered on 01/13/18at 09:12; Start at 17:00 Dexmedetomidine HCl 200 mcg/ Sodium Chloride 50 ml @ 0 mls/hr CONT PRN IV PER PROTOCOL Last administered on 01/11/18at 17:00; Start 01/11/18 at 16:45; Stop 01/11/18 at 18:38; Status DC Sodium Chloride 500 ml @ 500 mls/hr 1X PRN PRN IV SEE COMMENTS; Start at 16:45 Atropine Sulfate (ATROPINE 0.5mg SYRINGE) 0.5 mg PRN Q5MIN PRN IV SEE COMMENTS ; Start 01/11/18 at 16:45 Lorazepam (Ativan) 4 mg PRN Q1HR PRN PO For CIWA 8-14; Start 01/11/18 at 18:15 Lorazepam (Ativan) 8 mg PRN Q1HR PRN PO For CIWA 15 or greater; Start at 18:15 Lorazepam (Ativan) 2 mg PRN Q1HR PRN IV For CIWA 8-14; Start 01/11/18 at 18:15 Lorazepam (Ativan) 4 mg PRN Q1HR PRN IV For CIWA 15 or greater Last administered on 01/12/18at 23:11; Start 01/11/18 at 18:15 Diphenhydramine HCl (Benadryl) 25 mg PRN Q15MIN PRN IVP EPS symptoms 2'Haldol admin; Start 01/11/18 at 18:15 Olanzapine (ZyPREXA IM) 10 mg 1X ONCE IM Last administered on 01/11/18at 18:42 ; Start 01/11/18 at 18:45; Stop 01/11/18 at 18:46; Status DC Dexmedetomidine HCl 200 mcg/ Sodium Chloride 50 ml @ 7 mls/hr CONT PRN IV PER PROTOCOL; Start 01/11/18 at 18:38; Stop 01/11/18 at 21:19; Status DC Propofol 100 ml @ As Directed STK-MED ONCE IV ; Start 01/11/18 at 18:43; Stop 01/11/18 at 18:44; Status DC Succinylcholine Chloride (Anectine) 200 mg STK-MED ONCE .ROUTE ; Start at 18:44; Stop 01/11/18 at 18:45; Status DC Fentanyl Citrate 30 ml @ 2.5 mls/hr CONT PRN IV PER PROTOCOL Last administered on 01/13/18at 07:51; Start 01/11/18 at 19:00 Propofol 100 ml @ 4.2 mls/hr CONT PRN IV PER PROTOCOL; Start 01/11/18 at 18: 45; Status Cancel Fentanyl Citrate (Fentanyl 2ml Vial) 25 mcg PRN Q1HR PRN IV SEE COMMENTS.; Start 01/11/18 at 18:45 Fentanyl Citrate (Fentanyl 2ml Vial) 50 mcg PRN Q1HR PRN IV SEE COMMENTS. Last administered on 01/11/18at 20:21; Start 01/11/18 at 18:45 Morphine Sulfate (Morphine Sulfate) 2 mg PRN Q1HR PRN IV SEE COMMENTS.; Start 01/11/18 at 18:45 Morphine Sulfate (Morphine Sulfate) 4 mg PRN Q1HR PRN IV SEE COMMENTS.; Start 01/11/18 at 18:45 Hydromorphone HCl (Dilaudid) 0.2 mg PRN Q1HR PRN IV SEE COMMENTS.; Start 01/11 at 18:45 Hydromorphone HCl (Dilaudid) 0.4 mg PRN Q1HR PRN IV SEE COMMENTS.; Start 01/11 at 18:45 Morphine Sulfate (Morphine Sulfate) 2 mg PRN Q1HR PRN IV ; Start 01/11/18 at 18:45; Status UNV Morphine Sulfate (Morphine Sulfate) 4 mg PRN Q1HR PRN IV ; Start 01/11/18 at 18:45; Status UNV Midazolam HCl 100 ml @ 1 mls/hr CONT PRN IV PER PROTOCOL Last administered on 01/13/18at 10:03; Start 01/11/18 at 18:45 Epinephrine HCl (EPINEPHrine SYRINGE) 1 mg STK-MED ONCE .ROUTE ; Start at 18:56; Stop 01/11/18 at 18:57; Status DC Propofol 100 ml @ 2.103 mls/ hr CONT PRN IV SEE I/O RECORD Last administered on 01/11/18at 20:23; Start 01/11/18 at 19:00 Vecuronium [place] (Norcuron Bolus) 10 mg STK-MED ONCE IV ; Start 01/11/18 at 19:02; Stop 01/11/18 at 19:03; Status DC Vancomycin HCl (Vanco Per Pharmacy) 1 each PRN DAILY PRN MC SEE COMMENTS Last administered on 01/12/18at 11:47; Start 01/11/18 at 20:15; Stop 01/12/18 at 13 :14; Status DC Piperacillin Sod/ Tazobactam Sod (Zosyn Per Pharmacy) 1 each PRN DAILY PRN MC SEE COMMENTS; Start 01/11/18 at 20:15; Stop 01/13/18 at 08:00; Status DC Piperacillin Sod/ Tazobactam Sod 4.5 gm/Sodium Chloride 100 ml @ 200 mls/hr Q6HRS IV Last administered on 01/13/18at 06:48; Start 01/12/18 at 00:00; Stop 01/13/18 at 07:57; Status DC Vancomycin HCl 2 gm/Sodium Chloride 500 ml @ 250 mls/hr 1X ONCE IV Last administered on 01/11/18at 21:00; Start 01/11/18 at 21:00; Stop 01/11/18 at 22 :59; Status DC Insulin Human Lispro (HumaLOG) 0-7 UNITS Q6HRS SQ Last administered on at 06:51; Start 01/12/18 at 00:00 Dextrose (Dextrose 50%-Water Syringe) 12.5 gm PRN Q15MIN PRN IV SEE COMMENTS; Start 01/11/18 at 21:00 Sodium Chloride 1,000 ml @ 100 mls/hr Q10H IV Last administered on 01/13/18at 04:57; Start 01/11/18 at 21:00 Dexmedetomidine HCl 200 mcg/ Sodium Chloride 50 ml @ 0 mls/hr CONT PRN IV PER PROTOCOL Last administered on 01/13/18at 09:15; Start 01/11/18 at 21:00 Acetaminophen (Tylenol) 650 mg PRN Q6HRS PRN PEG MILD PAIN / TEMP Last administered on 01/13/18at 02:42; Start 01/11/18 at 21:30 Magnesium Sulfate 50 ml @ 25 mls/hr 1X ONCE IV Last administered on at 01:27; Start 01/12/18 at 01:00; Stop 01/12/18 at 02:59; Status DC Sodium Chloride 1,000 ml @ 1,000 mls/hr 1X ONCE IV Last administered on 01/12at 01:00; Start 01/12/18 at 04:30; Stop 01/12/18 at 05:29; Status DC Vancomycin HCl 1.5 gm/Sodium Chloride 500 ml @ 250 mls/hr Q12H IV Last administered on 01/12/18at 08:44; Start 01/12/18 at 09:00; Stop 01/12/18 at 13 :14; Status DC Vancomycin HCl (Vancomycin Trough Level) 1 each 1X ONCE MC ; Start 01/12/18 at 20:30; Stop 01/12/18 at 20:30; Status DC Sodium Chloride 500 ml @ 500 mls/hr 1X ONCE IV Last administered on at 07:26; Start 01/12/18 at 07:00; Stop 01/12/18 at 07:59; Status DC Famotidine (Pepcid Vial) 20 mg BID IVP Last administered on 01/13/18at 09:12; Start 01/12/18 at 09:00 Albuterol/ Ipratropium (Duoneb) 3 ml RTQID NEB Last administered on 01/13/18at 07:26; Start 01/12/18 at 08:00 Heparin Sodium (Porcine) (Heparin Sodium) 5,000 unit Q8HRS SQ Last administered on 01/13/18at 06:51; Start 01/12/18 at 14:00 Gemfibrozil (Lopid) 600 mg BIDBFRMEAL PO ; Start 01/12/18 at 10:00 Linezolid/Dextrose 300 ml @ 300 mls/hr Q12HR IV Last administered on at 09:12; Start 01/12/18 at 21:00 Vecuronium [place] (Norcuron Bolus) 10 mg STK-MED ONCE IV ; Start 01/11/18 at 19:00; Stop 01/13/18 at 07:59; Status DC Succinylcholine Chloride (Anectine) 200 mg STK-MED ONCE .ROUTE ; Start at 19:00; Stop 01/13/18 at 07:59; Status DC Propofol (Diprivan) 1,000 mg STK-MED ONCE IV ; Start 01/11/18 at 19:00; Stop 01/13/18 at 07:59; Status DC Epinephrine HCl (EPINEPHrine SYRINGE) 1 mg STK-MED ONCE .ROUTE ; Start at 19:00; Stop 01/13/18 at 07:59; Status DC Piperacillin Sod/ Tazobactam Sod 2.25 gm/Sodium Chloride 50 ml @ 100 mls/hr Q8HRS IV ; Start 01/13/18 at 14:00 Doxycycline Hyclate 100 mg/ Dextrose 100 ml @ 50 mls/hr Q12HR IV Last administered on 01/13/18at 10:03; Start 01/13/18 at 09:00 Sodium Bicarbonate (Sodium Bicarb Adult 8.4% Syr) 100 meq 1X ONCE IV Last administered on 01/13/18at 09:12; Start 01/13/18 at 09:15; Stop 01/13/18 at 09 :16; Status DC Active [facility] Maxitrol Eye Drops (Brandon/Polymyx B Sulf/Dexameth) 5 Ml Drops.susp 1 Drop OD QID Multivitamins (Multivitamin) 1 Each Tablet 1 Tab PO DAILY Magnesium (Magnesium Oxide) 400 Mg Capsule 1 Cap PO DAILY Calcium (Calcium Carbonate) 500 Mg Tab.chew 500 Mg PO Lansoprazole 30 Mg Capsule.dr 1 Cap PO DAILY Losartan Potassium 25 Mg Tablet 25 Mg PO DAILY Tizanidine Hcl 4 Mg Tablet 1 Tab PO TID Tramadol Hcl 50 Mg Tablet 50 Mg PO DAILY PRN Bystolic (Nebivolol Hcl) 20 Mg Tablet 20 Mg PO DAILY Cymbalta (Duloxetine Hcl) 20 Mg Capsule.dr 1 Cap PO DAILY Valacyclovir (Valacyclovir Hcl) 1,000 Mg Tablet 1 Tab PO DAILY Ibuprofen 400 Mg Tablet 400 Mg PO PRN Q6HRS PRN Bystolic (Nebivolol) 10 Mg Tablet 20 Mg PO DAILY Amlodipine Besylate 10 Mg Tablet 10 Mg PO DAILY Allergies Allergies: Coded Allergies: No Known Drug Allergies (Unverified , 09/21/15) ROS Review of System Unable to obtain- Pt sedated, Intubated Physical Exam Physical Exam GENERAL: sedated and intubated. HEENT: ETT and NGT in place. NECK: Supple/ No JVD LUNGS: Diminished aeration in the bases. HEART: Regular rhythm. ABDOMEN: Obese. : Indwelling Cook in place. EXTREMITIES: No edema SKIN: Has tattoos. No rash., Bitten by Fire ants- scabs in LE NEUROLOGIC: Unresponsive/sedated. Vital Signs Vital Signs Date Time Temp Pulse Resp B/P (MAP) Pulse Ox O2 Delivery O2 Flow Rate FiO2 01/13/18 10:00 90 24 125/79 (94) 96 Ventilator 01/13/18 07:00 100.7 100.7 Assessment & Plan DENISHA - Likely ATN Noted Acute Worsening, decreased UOP On IVF , BP low- Not on pressors Ordered CK- Mildly elevated As per RN Cook doesn't appear to be clogged E-Lytes and acid base stable , Currently No Emergent Indication for HD , Monitor closely Recd Bicarb IV per pulm Fever/ Aspiration pneumonia ID Following Lactic acidosis, improved. Increased Lipase/Amylase on 01/[address] scan abdomen without Contrast Will Defer to primary for further followup Acute encephalopathy with hallucinations and behavioral change. Heavy alcohol use Worsening back pain with urinary incontinence prior to admission. Discussed with RN and Pulm Labs Labs Laboratory Tests Test 01/11/18 12:10 01/11/18 14:27 01/11/18 15:12 01/11/18 15:17 White Blood Count 10.5 x10^3/uL (4.0-11.0) Red Blood Count 3.89 x10^6/uL (4.30-5.70) Hemoglobin 11.9 g/dL (13.0-17.5) Hematocrit 36.7 % (39.0-53.0) Mean Corpuscular Volume 94 fL (79-100) Mean Corpuscular Hemoglobin 31 pg (25-35) Mean Corpuscular Hemoglobin Concent 32 g/dL (31-37) Red Cell Distribution Width 13.0 % (11.5-14.5) Platelet Count 297 x10^3/uL (140-400) Neutrophils (%) (Auto) 81 % (31-73) Lymphocytes (%) (Auto) 13 % (24-48) Monocytes (%) (Auto) 5 % (0-9) Eosinophils (%) (Auto) 1 % (0-3) Basophils (%) (Auto) 2 % (0-3) Neutrophils # (Auto) 8.4 x10^3uL (1.8-7.7) Lymphocytes # (Auto) 1.3 x10^3/uL (1.0-4.8) Monocytes # (Auto) 0.5 x10^3/uL (0.0-1.1) Eosinophils # (Auto) 0.1 x10^3/uL (0.0-0.7) Basophils # (Auto) 0.2 x10^3/uL (0.0-0.2) Urine Collection Type Unknown Urine Color Yellow Urine Clarity Clear Urine pH 5.5 Urine Specific [place] 1.020 Urine Protein Negative mg/dL (NEG-TRACE) Urine Glucose (UA) >=1000 mg/dL (NEG) Urine Ketones (Stick) >=80 mg/dL (NEG) Urine Blood Trace (NEG) Urine Nitrite Negative (NEG) Urine Bilirubin Negative (NEG) Urine Urobilinogen Dipstick 1.0 mg/dL (0.2 mg/dL) Urine Leukocyte Esterase Negative (NEG) Urine RBC 6-10 /HPF (0-2) Urine WBC 1-4 /HPF (0-4) Urine Bacteria 0 /HPF (0-FEW) Sodium Level 129 mmol/L (136-145) Potassium Level 4.3 mmol/L (3.5-5.1) Chloride Level 91 mmol/L (98-107) Carbon Dioxide Level 20 mmol/L (21-32) Anion Gap 18 (6-14) Blood Urea Nitrogen 7 mg/dL (8-26) Creatinine 0.9 mg/dL (0.7-1.3) Estimated GFR (Cockcroft-Gault) 92.1 BUN/Creatinine Ratio 8 (6-20) Glucose Level 416 mg/dL (70-99) Calcium Level 8.5 mg/dL (8.5-10.1) Total Bilirubin 1.5 mg/dL (0.2-1.0) Aspartate Amino Transf (AST/SGOT) 44 U/L (15-37) Alanine Aminotransferase (ALT/SGPT) 47 U/L (16-63) Alkaline Phosphatase 105 U/L (46-116) Troponin I Quantitative 0.089 ng/mL (0.000-0.055) Total Protein 6.4 g/dL (6.4-8.2) Albumin 2.9 g/dL (3.4-5.0) Albumin/Globulin Ratio 0.8 (1.0-1.7) Urine Opiates Screen Neg (NEG) Urine Methadone Screen Neg (NEG) Urine Barbiturates Neg (NEG) Urine Phencyclidine Screen Neg (NEG) Urine Amphetamine/Methamphetamine Neg (NEG) Urine Benzodiazepines Screen Neg (NEG) Urine Cocaine Screen Neg (NEG) Urine Cannabinoids Screen Pos (NEG) Ethyl Alcohol Level < 10 mg/dL (0-10) Urine Ethyl Alcohol Neg (NEG) Glucose (Fingerstick) 337 mg/dL (70-99) 349 mg/dL (70-99) Bedside Troponin I 0.06 ng/ml (<0.08) Test 01/11/18 16:00 01/11/18 19:09 01/11/18 19:33 01/11/18 20:00 Nasal Screen MRSA (PCR) Negative (Negative) O2 Saturation 95 % (92-99) Arterial Blood pH 7.20 (7.35-7.45) Arterial Blood pCO2 at Patient Temp 62 mmHg (35-46) Arterial Blood pO2 at Patient Temp 86 mmHg (75-108) Arterial Blood HCO3 24 mmol/L (21-28) Arterial Blood Base Excess -5 mmol/L (-3-3) FiO2 100 Glucose (Fingerstick) 272 mg/dL (70-99) Sodium Level 133 mmol/L (136-145) Potassium Level 4.3 mmol/L (3.5-5.1) Chloride Level 98 mmol/L (98-107) Carbon Dioxide Level 25 mmol/L (21-32) Anion Gap 10 (6-14) Blood Urea Nitrogen 4 mg/dL (8-26) Creatinine 0.8 mg/dL (0.7-1.3) Estimated GFR (Cockcroft-Gault) 105.5 BUN/Creatinine Ratio 5 (6-20) Glucose Level 347 mg/dL (70-99) Calcium Level 7.7 mg/dL (8.5-10.1) Phosphorus Level 2.6 mg/dL (2.6-4.7) Magnesium Level 1.5 mg/dL (1.8-2.4) Total Bilirubin 0.9 mg/dL (0.2-1.0) Aspartate Amino Transf (AST/SGOT) 37 U/L (15-37) Alanine Aminotransferase (ALT/SGPT) 36 U/L (16-63) Alkaline Phosphatase 91 U/L (46-116) Total Protein 6.0 g/dL (6.4-8.2) Albumin 2.7 g/dL (3.4-5.0) Albumin/Globulin Ratio 0.8 (1.0-1.7) Test 01/11/18 23:50 01/12/18 00:07 01/12/18 04:00 01/12/18 04:30 Lactic Acid Level 3.1 mmol/L (0.4-2.0) 0.4 mmol/L (0.4-2.0) Glucose (Fingerstick) 227 mg/dL (70-99) Sodium Level 137 mmol/L (136-145) Potassium Level 4.4 mmol/L (3.5-5.1) Chloride Level 103 mmol/L (98-107) Carbon Dioxide Level 23 mmol/L (21-32) Anion Gap 11 (6-14) Blood Urea Nitrogen 6 mg/dL (8-26) Creatinine 1.4 mg/dL (0.7-1.3) Estimated GFR (Cockcroft-Gault) 55.3 Glucose Level 266 mg/dL (70-99) Calcium Level 8.0 mg/dL (8.5-10.1) Phosphorus Level 3.0 mg/dL (2.6-4.7) Magnesium Level 1.9 mg/dL (1.8-2.4) Troponin I Quantitative 0.110 ng/mL (0.000-0.055) White Blood Count 5.3 x10^3/uL (4.0-11.0) Red Blood Count 4.17 x10^6/uL (4.30-5.70) Hemoglobin 13.9 g/dL (13.0-17.5) Hematocrit 39.7 % (39.0-53.0) Mean Corpuscular Volume 95 fL (79-100) Mean Corpuscular Hemoglobin 33 pg (25-35) Mean Corpuscular Hemoglobin Concent 35 g/dL (31-37) Red Cell Distribution Width 13.4 % (11.5-14.5) Platelet Count 232 x10^3/uL (140-400) Neutrophils (%) (Auto) 79 % (31-73) Lymphocytes (%) (Auto) 15 % (24-48) Monocytes (%) (Auto) 4 % (0-9) Eosinophils (%) (Auto) 1 % (0-3) Basophils (%) (Auto) 0 % (0-3) Neutrophils # (Auto) 4.2 x10^3uL (1.8-7.7) Lymphocytes # (Auto) 0.8 x10^3/uL (1.0-4.8) Monocytes # (Auto) 0.2 x10^3/uL (0.0-1.1) Eosinophils # (Auto) 0.1 x10^3/uL (0.0-0.7) Basophils # (Auto) 0.0 x10^3/uL (0.0-0.2) Test 01/12/18 05:00 01/12/18 07:40 01/12/18 08:00 01/12/18 11:13 EX-Glm-I-Type Natriuretic Peptide 2253 pg/mL (0-124) Triglycerides Level 1547 mg/dL (0-150) Cholesterol Level 306 mg/dL (0-200) LDL Cholesterol, Calculated mg/dL (0-100) VLDL Cholesterol, Calculated 309 mg/dL (0-40) Non-HDL Cholesterol Calculated mg/dL (0-129) HDL Cholesterol mg/dL (40-60) Cholesterol/HDL Ratio Amylase Level 120 U/L (25-115) Lipase 2127 U/L (73-393) Influenza Type A Antigen Negative (NEGATIVE) Influenza Type B Antigen Negative (NEGATIVE) O2 Saturation 97 % (92-99) Arterial Blood pH 7.33 (7.35-7.45) Arterial Blood pH (Temp corrected) 7.29 Arterial Blood pCO2 at Patient Temp 40 mmHg (35-46) Arterial Blood pCO2 (Temp correct) 44 mmHg Arterial Blood pO2 at Patient Temp 87 mmHg (75-108) Arterial Blood pO2 (Temp corrected) 100 mmHg Arterial Blood HCO3 20 mmol/L (21-28) Arterial Blood Base Excess -5 mmol/L (-3-3) FiO2 50 Glucose (Fingerstick) 191 mg/dL (70-99) Test 01/12/18 17:23 01/13/18 00:37 01/13/18 06:10 01/13/18 06:44 Glucose (Fingerstick) 223 mg/dL (70-99) 189 mg/dL (70-99) 207 mg/dL (70-99) White Blood Count 6.5 x10^3/uL (4.0-11.0) Red Blood Count 3.64 x10^6/uL (4.30-5.70) Hemoglobin 12.1 g/dL (13.0-17.5) Hematocrit 35.7 % (39.0-53.0) Mean Corpuscular Volume 98 fL (79-100) Mean Corpuscular Hemoglobin 33 pg (25-35) Mean Corpuscular Hemoglobin Concent 34 g/dL (31-37) Red Cell Distribution Width 14.1 % (11.5-14.5) Platelet Count 216 x10^3/uL (140-400) Neutrophils (%) (Auto) 80 % (31-73) Lymphocytes (%) (Auto) 11 % (24-48) Monocytes (%) (Auto) 7 % (0-9) Eosinophils (%) (Auto) 2 % (0-3) Basophils (%) (Auto) 0 % (0-3) Neutrophils # (Auto) 5.2 x10^3uL (1.8-7.7) Lymphocytes # (Auto) 0.7 x10^3/uL (1.0-4.8) Monocytes # (Auto) 0.4 x10^3/uL (0.0-1.1) Eosinophils # (Auto) 0.1 x10^3/uL (0.0-0.7) Basophils # (Auto) 0.0 x10^3/uL (0.0-0.2) Sodium Level 140 mmol/L (136-145) Potassium Level 4.8 mmol/L (3.5-5.1) Chloride Level 106 mmol/L (98-107) Carbon Dioxide Level 21 mmol/L (21-32) Anion Gap 13 (6-14) Blood Urea Nitrogen 25 mg/dL (8-26) Creatinine 4.4 mg/dL (0.7-1.3) Estimated GFR (Cockcroft-Gault) 14.8 Glucose Level 232 mg/dL (70-99) Calcium Level 7.9 mg/dL (8.5-10.1) Test 01/13/18 07:25 01/13/18 08:30 O2 Saturation 95 % (92-99) Arterial Blood pH 7.28 (7.35-7.45) Arterial Blood pH (Temp corrected) 7.26 Arterial Blood pCO2 at Patient Temp 41 mmHg (35-46) Arterial Blood pCO2 (Temp correct) 44 mmHg Arterial Blood pO2 at Patient Temp 74 mmHg (75-108) Arterial Blood pO2 (Temp corrected) 80 mmHg Arterial Blood HCO3 19 mmol/L (21-28) Arterial Blood Base Excess -7 mmol/L (-3-3) Group A Streptococcus Rapid Negative (NEGATIVE) Laboratory Tests Test 01/12/18 11:13 01/12/18 17:23 01/13/18 00:37 01/13/18 06:10 Glucose (Fingerstick) 191 mg/dL (70-99) 223 mg/dL (70-99) 189 mg/dL (70-99) White Blood Count 6.5 x10^3/uL (4.0-11.0) Red Blood Count 3.64 x10^6/uL (4.30-5.70) Hemoglobin 12.1 g/dL (13.0-17.5) Hematocrit 35.7 % (39.0-53.0) Mean Corpuscular Volume 98 fL (79-100) Mean Corpuscular Hemoglobin 33 pg (25-35) Mean Corpuscular Hemoglobin Concent 34 g/dL (31-37) Red Cell Distribution Width 14.1 % (11.5-14.5) Platelet Count 216 x10^3/uL (140-400) Neutrophils (%) (Auto) 80 % (31-73) Lymphocytes (%) (Auto) 11 % (24-48) Monocytes (%) (Auto) 7 % (0-9) Eosinophils (%) (Auto) 2 % (0-3) Basophils (%) (Auto) 0 % (0-3) Neutrophils # (Auto) 5.2 x10^3uL (1.8-7.7) Lymphocytes # (Auto) 0.7 x10^3/uL (1.0-4.8) Monocytes # (Auto) 0.4 x10^3/uL (0.0-1.1) Eosinophils # (Auto) 0.1 x10^3/uL (0.0-0.7) Basophils # (Auto) 0.0 x10^3/uL (0.0-0.2) Sodium Level 140 mmol/L (136-145) Potassium Level 4.8 mmol/L (3.5-5.1) Chloride Level 106 mmol/L (98-107) Carbon Dioxide Level 21 mmol/L (21-32) Anion Gap 13 (6-14) Blood Urea Nitrogen 25 mg/dL (8-26) Creatinine 4.4 mg/dL (0.7-1.3) Estimated GFR (Cockcroft-Gault) 14.8 Glucose Level 232 mg/dL (70-99) Calcium Level 7.9 mg/dL (8.5-10.1) Test 01/13/18 06:44 01/13/18 07:25 01/13/18 08:30 Glucose (Fingerstick) 207 mg/dL (70-99) O2 Saturation 95 % (92-99) Arterial Blood pH 7.28 (7.35-7.45) Arterial Blood pH (Temp corrected) 7.26 Arterial Blood pCO2 at Patient Temp 41 mmHg (35-46) Arterial Blood pCO2 (Temp correct) 44 mmHg Arterial Blood pO2 at Patient Temp 74 mmHg (75-108) Arterial Blood pO2 (Temp corrected) 80 mmHg Arterial Blood HCO3 19 mmol/L (21-28) Arterial Blood Base Excess -7 mmol/L (-3-3) Group A Streptococcus Rapid Negative (NEGATIVE) Review All relevant outside records, renal labs, imaging studies, telemetry/EKG's were reviewed. Images Images CxR-- IMPRESSION: Since the previous study, there has been an increase in left lung base infiltrate or atelectasis. NERISSA BURR MD Jan 13, 2018 11:13
--- NOTE | 2018-01-13 11:23 | PDOC ---
PULMONARY PROGRESS NOTES Subjective remains on AC mode needs a lot of sedatives to control agitation Vitals Vital Signs Date Time Temp Pulse Resp B/P (MAP) Pulse Ox O2 Delivery O2 Flow Rate FiO2 01/13/18 11:00 89 24 113/71 (85) 96 Ventilator 01/13/18 07:00 100.7 100.7 Lungs: Other (decrease bs) Cardiovascular: S1 Abdomen: Soft Extremities: No Edema Skin: Warm Labs Laboratory Tests Test 01/11/18 12:10 01/11/18 14:27 01/11/18 15:12 01/11/18 15:17 White Blood Count 10.5 x10^3/uL (4.0-11.0) Red Blood Count 3.89 x10^6/uL (4.30-5.70) Hemoglobin 11.9 g/dL (13.0-17.5) Hematocrit 36.7 % (39.0-53.0) Mean Corpuscular Volume 94 fL (79-100) Mean Corpuscular Hemoglobin 31 pg (25-35) Mean Corpuscular Hemoglobin Concent 32 g/dL (31-37) Red Cell Distribution Width 13.0 % (11.5-14.5) Platelet Count 297 x10^3/uL (140-400) Neutrophils (%) (Auto) 81 % (31-73) Lymphocytes (%) (Auto) 13 % (24-48) Monocytes (%) (Auto) 5 % (0-9) Eosinophils (%) (Auto) 1 % (0-3) Basophils (%) (Auto) 2 % (0-3) Neutrophils # (Auto) 8.4 x10^3uL (1.8-7.7) Lymphocytes # (Auto) 1.3 x10^3/uL (1.0-4.8) Monocytes # (Auto) 0.5 x10^3/uL (0.0-1.1) Eosinophils # (Auto) 0.1 x10^3/uL (0.0-0.7) Basophils # (Auto) 0.2 x10^3/uL (0.0-0.2) Urine Collection Type Unknown Urine Color Yellow Urine Clarity Clear Urine pH 5.5 Urine Specific Warren 1.020 Urine Protein Negative mg/dL (NEG-TRACE) Urine Glucose (UA) >=1000 mg/dL (NEG) Urine Ketones (Stick) >=80 mg/dL (NEG) Urine Blood Trace (NEG) Urine Nitrite Negative (NEG) Urine Bilirubin Negative (NEG) Urine Urobilinogen Dipstick 1.0 mg/dL (0.2 mg/dL) Urine Leukocyte Esterase Negative (NEG) Urine RBC 6-10 /HPF (0-2) Urine WBC 1-4 /HPF (0-4) Urine Bacteria 0 /HPF (0-FEW) Sodium Level 129 mmol/L (136-145) Potassium Level 4.3 mmol/L (3.5-5.1) Chloride Level 91 mmol/L (98-107) Carbon Dioxide Level 20 mmol/L (21-32) Anion Gap 18 (6-14) Blood Urea Nitrogen 7 mg/dL (8-26) Creatinine 0.9 mg/dL (0.7-1.3) Estimated GFR (Cockcroft-Gault) 92.1 BUN/Creatinine Ratio 8 (6-20) Glucose Level 416 mg/dL (70-99) Calcium Level 8.5 mg/dL (8.5-10.1) Total Bilirubin 1.5 mg/dL (0.2-1.0) Aspartate Amino Transf (AST/SGOT) 44 U/L (15-37) Alanine Aminotransferase (ALT/SGPT) 47 U/L (16-63) Alkaline Phosphatase 105 U/L (46-116) Troponin I Quantitative 0.089 ng/mL (0.000-0.055) Total Protein 6.4 g/dL (6.4-8.2) Albumin 2.9 g/dL (3.4-5.0) Albumin/Globulin Ratio 0.8 (1.0-1.7) Urine Opiates Screen Neg (NEG) Urine Methadone Screen Neg (NEG) Urine Barbiturates Neg (NEG) Urine Phencyclidine Screen Neg (NEG) Urine Amphetamine/Methamphetamine Neg (NEG) Urine Benzodiazepines Screen Neg (NEG) Urine Cocaine Screen Neg (NEG) Urine Cannabinoids Screen Pos (NEG) Ethyl Alcohol Level < 10 mg/dL (0-10) Urine Ethyl Alcohol Neg (NEG) Glucose (Fingerstick) 337 mg/dL (70-99) 349 mg/dL (70-99) Bedside Troponin I 0.06 ng/ml (<0.08) Test 01/11/18 16:00 01/11/18 19:09 01/11/18 19:33 01/11/18 20:00 Nasal Screen MRSA (PCR) Negative (Negative) O2 Saturation 95 % (92-99) Arterial Blood pH 7.20 (7.35-7.45) Arterial Blood pCO2 at Patient Temp 62 mmHg (35-46) Arterial Blood pO2 at Patient Temp 86 mmHg (75-108) Arterial Blood HCO3 24 mmol/L (21-28) Arterial Blood Base Excess -5 mmol/L (-3-3) FiO2 100 Glucose (Fingerstick) 272 mg/dL (70-99) Sodium Level 133 mmol/L (136-145) Potassium Level 4.3 mmol/L (3.5-5.1) Chloride Level 98 mmol/L (98-107) Carbon Dioxide Level 25 mmol/L (21-32) Anion Gap 10 (6-14) Blood Urea Nitrogen 4 mg/dL (8-26) Creatinine 0.8 mg/dL (0.7-1.3) Estimated GFR (Cockcroft-Gault) 105.5 BUN/Creatinine Ratio 5 (6-20) Glucose Level 347 mg/dL (70-99) Calcium Level 7.7 mg/dL (8.5-10.1) Phosphorus Level 2.6 mg/dL (2.6-4.7) Magnesium Level 1.5 mg/dL (1.8-2.4) Total Bilirubin 0.9 mg/dL (0.2-1.0) Aspartate Amino Transf (AST/SGOT) 37 U/L (15-37) Alanine Aminotransferase (ALT/SGPT) 36 U/L (16-63) Alkaline Phosphatase 91 U/L (46-116) Total Protein 6.0 g/dL (6.4-8.2) Albumin 2.7 g/dL (3.4-5.0) Albumin/Globulin Ratio 0.8 (1.0-1.7) Test 01/11/18 23:50 01/12/18 00:07 01/12/18 04:00 01/12/18 04:30 Lactic Acid Level 3.1 mmol/L (0.4-2.0) 0.4 mmol/L (0.4-2.0) Glucose (Fingerstick) 227 mg/dL (70-99) Sodium Level 137 mmol/L (136-145) Potassium Level 4.4 mmol/L (3.5-5.1) Chloride Level 103 mmol/L (98-107) Carbon Dioxide Level 23 mmol/L (21-32) Anion Gap 11 (6-14) Blood Urea Nitrogen 6 mg/dL (8-26) Creatinine 1.4 mg/dL (0.7-1.3) Estimated GFR (Cockcroft-Gault) 55.3 Glucose Level 266 mg/dL (70-99) Calcium Level 8.0 mg/dL (8.5-10.1) Phosphorus Level 3.0 mg/dL (2.6-4.7) Magnesium Level 1.9 mg/dL (1.8-2.4) Troponin I Quantitative 0.110 ng/mL (0.000-0.055) White Blood Count 5.3 x10^3/uL (4.0-11.0) Red Blood Count 4.17 x10^6/uL (4.30-5.70) Hemoglobin 13.9 g/dL (13.0-17.5) Hematocrit 39.7 % (39.0-53.0) Mean Corpuscular Volume 95 fL (79-100) Mean Corpuscular Hemoglobin 33 pg (25-35) Mean Corpuscular Hemoglobin Concent 35 g/dL (31-37) Red Cell Distribution Width 13.4 % (11.5-14.5) Platelet Count 232 x10^3/uL (140-400) Neutrophils (%) (Auto) 79 % (31-73) Lymphocytes (%) (Auto) 15 % (24-48) Monocytes (%) (Auto) 4 % (0-9) Eosinophils (%) (Auto) 1 % (0-3) Basophils (%) (Auto) 0 % (0-3) Neutrophils # (Auto) 4.2 x10^3uL (1.8-7.7) Lymphocytes # (Auto) 0.8 x10^3/uL (1.0-4.8) Monocytes # (Auto) 0.2 x10^3/uL (0.0-1.1) Eosinophils # (Auto) 0.1 x10^3/uL (0.0-0.7) Basophils # (Auto) 0.0 x10^3/uL (0.0-0.2) Test 01/12/18 05:00 01/12/18 07:40 01/12/18 08:00 01/12/18 11:13 HT-Eeo-W-Type Natriuretic Peptide 2253 pg/mL (0-124) Triglycerides Level 1547 mg/dL (0-150) Cholesterol Level 306 mg/dL (0-200) LDL Cholesterol, Calculated mg/dL (0-100) VLDL Cholesterol, Calculated 309 mg/dL (0-40) Non-HDL Cholesterol Calculated mg/dL (0-129) HDL Cholesterol mg/dL (40-60) Cholesterol/HDL Ratio Amylase Level 120 U/L (25-115) Lipase 2127 U/L (73-393) Influenza Type A Antigen Negative (NEGATIVE) Influenza Type B Antigen Negative (NEGATIVE) O2 Saturation 97 % (92-99) Arterial Blood pH 7.33 (7.35-7.45) Arterial Blood pH (Temp corrected) 7.29 Arterial Blood pCO2 at Patient Temp 40 mmHg (35-46) Arterial Blood pCO2 (Temp correct) 44 mmHg Arterial Blood pO2 at Patient Temp 87 mmHg (75-108) Arterial Blood pO2 (Temp corrected) 100 mmHg Arterial Blood HCO3 20 mmol/L (21-28) Arterial Blood Base Excess -5 mmol/L (-3-3) FiO2 50 Glucose (Fingerstick) 191 mg/dL (70-99) Test 01/12/18 17:23 01/13/18 00:37 01/13/18 06:10 01/13/18 06:44 Glucose (Fingerstick) 223 mg/dL (70-99) 189 mg/dL (70-99) 207 mg/dL (70-99) White Blood Count 6.5 x10^3/uL (4.0-11.0) Red Blood Count 3.64 x10^6/uL (4.30-5.70) Hemoglobin 12.1 g/dL (13.0-17.5) Hematocrit 35.7 % (39.0-53.0) Mean Corpuscular Volume 98 fL (79-100) Mean Corpuscular Hemoglobin 33 pg (25-35) Mean Corpuscular Hemoglobin Concent 34 g/dL (31-37) Red Cell Distribution Width 14.1 % (11.5-14.5) Platelet Count 216 x10^3/uL (140-400) Neutrophils (%) (Auto) 80 % (31-73) Lymphocytes (%) (Auto) 11 % (24-48) Monocytes (%) (Auto) 7 % (0-9) Eosinophils (%) (Auto) 2 % (0-3) Basophils (%) (Auto) 0 % (0-3) Neutrophils # (Auto) 5.2 x10^3uL (1.8-7.7) Lymphocytes # (Auto) 0.7 x10^3/uL (1.0-4.8) Monocytes # (Auto) 0.4 x10^3/uL (0.0-1.1) Eosinophils # (Auto) 0.1 x10^3/uL (0.0-0.7) Basophils # (Auto) 0.0 x10^3/uL (0.0-0.2) Sodium Level 140 mmol/L (136-145) Potassium Level 4.8 mmol/L (3.5-5.1) Chloride Level 106 mmol/L (98-107) Carbon Dioxide Level 21 mmol/L (21-32) Anion Gap 13 (6-14) Blood Urea Nitrogen 25 mg/dL (8-26) Creatinine 4.4 mg/dL (0.7-1.3) Estimated GFR (Cockcroft-Gault) 14.8 Glucose Level 232 mg/dL (70-99) Calcium Level 7.9 mg/dL (8.5-10.1) Test 01/13/18 07:25 01/13/18 08:30 O2 Saturation 95 % (92-99) Arterial Blood pH 7.28 (7.35-7.45) Arterial Blood pH (Temp corrected) 7.26 Arterial Blood pCO2 at Patient Temp 41 mmHg (35-46) Arterial Blood pCO2 (Temp correct) 44 mmHg Arterial Blood pO2 at Patient Temp 74 mmHg (75-108) Arterial Blood pO2 (Temp corrected) 80 mmHg Arterial Blood HCO3 19 mmol/L (21-28) Arterial Blood Base Excess -7 mmol/L (-3-3) Group A Streptococcus Rapid Negative (NEGATIVE) Laboratory Tests Test 01/12/18 17:23 01/13/18 00:37 01/13/18 06:10 01/13/18 06:44 Glucose (Fingerstick) 223 mg/dL (70-99) 189 mg/dL (70-99) 207 mg/dL (70-99) White Blood Count 6.5 x10^3/uL (4.0-11.0) Red Blood Count 3.64 x10^6/uL (4.30-5.70) Hemoglobin 12.1 g/dL (13.0-17.5) Hematocrit 35.7 % (39.0-53.0) Mean Corpuscular Volume 98 fL (79-100) Mean Corpuscular Hemoglobin 33 pg (25-35) Mean Corpuscular Hemoglobin Concent 34 g/dL (31-37) Red Cell Distribution Width 14.1 % (11.5-14.5) Platelet Count 216 x10^3/uL (140-400) Neutrophils (%) (Auto) 80 % (31-73) Lymphocytes (%) (Auto) 11 % (24-48) Monocytes (%) (Auto) 7 % (0-9) Eosinophils (%) (Auto) 2 % (0-3) Basophils (%) (Auto) 0 % (0-3) Neutrophils # (Auto) 5.2 x10^3uL (1.8-7.7) Lymphocytes # (Auto) 0.7 x10^3/uL (1.0-4.8) Monocytes # (Auto) 0.4 x10^3/uL (0.0-1.1) Eosinophils # (Auto) 0.1 x10^3/uL (0.0-0.7) Basophils # (Auto) 0.0 x10^3/uL (0.0-0.2) Sodium Level 140 mmol/L (136-145) Potassium Level 4.8 mmol/L (3.5-5.1) Chloride Level 106 mmol/L (98-107) Carbon Dioxide Level 21 mmol/L (21-32) Anion Gap 13 (6-14) Blood Urea Nitrogen 25 mg/dL (8-26) Creatinine 4.4 mg/dL (0.7-1.3) Estimated GFR (Cockcroft-Gault) 14.8 Glucose Level 232 mg/dL (70-99) Calcium Level 7.9 mg/dL (8.5-10.1) Test 01/13/18 07:25 01/13/18 08:30 O2 Saturation 95 % (92-99) Arterial Blood pH 7.28 (7.35-7.45) Arterial Blood pH (Temp corrected) 7.26 Arterial Blood pCO2 at Patient Temp 41 mmHg (35-46) Arterial Blood pCO2 (Temp correct) 44 mmHg Arterial Blood pO2 at Patient Temp 74 mmHg (75-108) Arterial Blood pO2 (Temp corrected) 80 mmHg Arterial Blood HCO3 19 mmol/L (21-28) Arterial Blood Base Excess -7 mmol/L (-3-3) Group A Streptococcus Rapid Negative (NEGATIVE) Medications Active Scripts Medications Dose Route/Sig Max Daily Dose Days Date Category [[facility] botanicals] 01/12/18 Reported Maxitrol Eye Drops (Brandon/Polymyx B Sulf/Dexameth) 5 Ml Drops.susp 1 Drop OD QID 01/12/18 Reported Multivitamins (Multivitamin) 1 Each Tablet 1 Tab PO DAILY 01/12/18 Reported Magnesium (Magnesium Oxide) 400 Mg Capsule 1 Cap PO DAILY 01/12/18 Reported Calcium (Calcium Carbonate) 500 Mg Tab.chew 500 Mg PO 01/12/18 Reported Lansoprazole 30 Mg Capsule.dr 1 Cap PO DAILY 01/12/18 Reported Losartan Potassium 25 Mg Tablet 25 Mg PO DAILY 01/12/18 Reported Tizanidine Hcl 4 Mg Tablet 1 Tab PO TID 01/12/18 Reported Tramadol Hcl 50 Mg Tablet 50 Mg PO DAILY PRN 01/12/18 Reported Bystolic (Nebivolol Hcl) 20 Mg Tablet 20 Mg PO DAILY 01/12/18 Reported Cymbalta (Duloxetine Hcl) 20 Mg Capsule.dr 1 Cap PO DAILY 01/12/18 Reported Valacyclovir (Valacyclovir Hcl) 1,000 Mg Tablet 1 Tab PO DAILY 01/12/18 Reported Ibuprofen 400 Mg Tablet 400 Mg PO PRN Q6HRS PRN 09/21/15 Reported Bystolic (Nebivolol) 10 Mg Tablet 20 Mg PO DAILY 09/21/15 Reported Amlodipine Besylate 10 Mg Tablet 10 Mg PO DAILY 09/21/15 Reported Impression . 1. Acute respiratory failure. 2. Abnormal chest x-ray/ poor insp effort, basal atelectasis 3. Sepsis ? source. 4. Severe agitation, could be secondary to alcohol withdrawal versus sepsis versus others. 5. Hyperglycemia 6. No obvious CHF/ normal EF 7. History of alcohol abuse. Level neg. Positive for Marihuana 8. Obesity? obstructive sleep apnea-hypopnea syndrome. 9. DENISHA, probably dry 10. Combined met/resp acidosis Plan . 1. Titrate FiO2 to keep O2 saturation 94%. 2. vent setting per ABG. 3. bronchodilator. 4. Aggressive fluid bolus 5. ID rec 6. Renal consult/ bicarb today 7. Pepcid for stress ulcer prophylaxis. 8. Lovenox 9. Continue ventilator support / hold off weaning 10. Control blood sugar. 13. The findings and recommendations were discussed with RN. cct 30 min AJ FINK MD Jan 13, 2018 11:23
[2018-01-13] MEDS ORDERED: IV NORMAL SALINE 1000ML BAG 1,000 ML IV ONE (12:15)
[2018-01-13] MEDS ORDERED: IV NORMAL SALINE 1000ML BAG 1,000 ML IV SCH (12:30)
[2018-01-13] MEDS: PIPERACILLIN/TAZOBACTAM 2.25 GM in IV NORMAL SALINE 50ML 50 ML IV SCH ×2 (14:18→21:34)
--- NOTE | 2018-01-13 14:22 | RAD ---
Ultrasound-guided vascular access, central venous catheter placement. History: Poor venous access, ventilation for respiratory failure associated with alcohol overdose, sepsis. IV access. Procedure: Written informed consent was obtained. The targeted vein was reviewed sonographically and shown to be widely patent. This was documented in the patient's permanent record and catheters PACS. All elements of maximal sterile barrier technique, including the use of a cap, mask, sterile gown, sterile gloves, large sterile sheet, appropriate hand hygiene, and 2% chlorhexidine for cutaneous antisepsis (or acceptable alternative antiseptic per current guidelines) were utilized. Sterile ultrasound technique was used. The area was draped and prepped in normal sterile fashion. Local anesthesia with 1% Lidocaine was made. Under real-time ultrasound guidance a 21-gauge needle was advanced into the targeted vein. Needle placement was confirmed by return of venous blood flow. A 0.018 wire was placed through the needle and the needle was exchanged over the wire after dermatotomy for a 4 Palestinian transitional sheath. This was used to introduce a stiff guidewire. The transitional sheath was then exchanged over the wire for fascial dilators to enlarge the venotomy site. A triple lumen 7 Palestinian central venous catheter was then placed over the wire. Clinical function of the catheter was tested with good results. The catheter was secured in place. The patient tolerated tolerated the procedure with local anesthesia. A overhead chest radiograph film was obtained to document catheter positioning. Impression: Placement of temporary central venous catheter via right internal jugular vein approach.
--- NOTE | 2018-01-13 14:42 | RAD ---
Examination: Portable chest HISTORY: History of line placement COMPARISON: 01/13/2018 FINDINGS: Low lung volumes and technique accentuates heart size and pulmonary vessel identified. The ET tube is identified in the trachea at the level of the clavicles. The feeding tube is seen below the diaphragm. The right-sided internal jugular line identified with tip projecting at SVC RA junction. There is mild diffuse prominent appearing bilateral interstitial lung markings. Mild bibasilar lung airspace opacities. IMPRESSION: 1. ET tube, feeding tube in place. Right-sided internal jugular line in place. 2. Mild congestive changes. Patchy bibasilar lung airspace opacity likely atelectasis or infiltrates similar to prior exam. Electronically signed by: Shyam Keating MD (01/13/2018 2:39 PM) [id number]
[2018-01-13] MEDS: VECURONIUM BOLUS 10 MG VIAL. IV PRN (15:18)
--- NOTE | 2018-01-13 17:09 | RAD ---
CT Abdomen and Pelvis without contrast History: Abdominal distention, possible pancreatitis, on ventilator Technique: Noncontrast CT imaging was performed of the abdomen and pelvis. Multiplanar images are reviewed. Exposure: One or more of the following individualized dose reduction techniques were utilized for this examination: 1. Automated exposure control 2. Adjustment of the mA and/or kV according to patient size 3. Use of iterative reconstruction technique. Comparison: None Findings: There is consolidation of the lower lobes lung bases bilaterally, also some infiltrate of the visualized posterior right upper lobe. There is small left pleural effusion. Accurate evaluation of abdominal visceral organs is limited without intravenous contrast. There is diffuse prominent hepatic steatosis. There is hepatomegaly. There is no obvious abnormality of the spleen, not enlarged. Pancreas is enlarged with associated diffuse peripancreatic inflammatory change. Enteric catheter courses into the stomach. Evaluation of bowel is also limited without oral contrast. There is diffuse severe wall thickening of the ascending colon and hepatic flexure with adjacent inflammatory change, also possible mild descending colonic wall thickening. No free air is identified. There is mild nonorganized free fluid in the right abdomen along the paracolic gutter. There is Cook catheter present. There is mild strandy change and probable trace fluid of the left paracolic gutter. The small bowel is not significantly dilated. There is advanced degenerative disc disease L5-S1. There is multilevel lumbar facet degenerative change. There is a small 3 to 4 mm nonobstructive left renal calculus. Impression: 1. There is evidence of pancreatitis, diffuse inflammatory change associated with the enlarged pancreas. 2. There is prominent colonic wall thickening of the ascending colon and hepatic flexure and questionably minimally of the descending colon, evidence of colitis. There is minimal nonspecific free fluid more eccentric to the right abdomen. 3. There is diffuse hepatic steatosis and hepatomegaly. 4. There are infiltrates of the lower lobes bilaterally at the lung bases and also the visualized posterior aspect of the right upper lobe. There is very minimal left pleural effusion. 5. There is a small nonobstructive left renal calculus. Electronically signed by: Trae Mccray MD (01/13/2018 5:07 PM) [id number]
[2018-01-14] VITALS (24 sets, daily range): BP systolic 91–187; BP diastolic 51–110
[2018-01-14] MEDS: DEXMEDETOMIDINE 200 MCG in IV NORMAL SALINE 50ML 48 ML IV PRN ×13 (00:12→23:41)
[2018-01-14] MEDS: MIDAZOLAM 100mg/100ml NS BAG 100 ML IV PRN ×3 (04:12→17:49)
[2018-01-14] MEDS: HALOPERIDOL LACTATE 5 MG/ML VIAL. IVP PRN ×2 (04:32→19:02)
[2018-01-14] MEDS: VECURONIUM BOLUS 10 MG VIAL. IV PRN ×2 (05:26→10:17)
[2018-01-14] MEDS: HEPARIN for SUB-Q USE 5,000 UNIT/ML VIAL. SQ SCH ×3 (05:43→21:38)
[2018-01-14] MEDS: PIPERACILLIN/TAZOBACTAM 2.25 GM in IV NORMAL SALINE 50ML 50 ML IV SCH ×3 (05:43→21:37)
[2018-01-14] MEDS: INSULIN LISPRO 300 UNITS/3 ML INSULN.PEN. SQ SCH ×5 (05:44→23:34)
[2018-01-14] MEDS: IV NORMAL SALINE 1000ML BAG 1,000 ML IV SCH ×2 (06:06→15:45)
[2018-01-14 06:28] LABS: BASO % 0 % (0-3); EOS # 0.3 x10^3/uL (0.0-0.7); EOS % 5 % (0-3); HEMATOCRIT 32.6 % (39.0-53.0); HEMOGLOBIN 10.8 g/dL (13.0-17.5); LYMPH # 0.6 x10^3/uL (1.0-4.8); LYMPH % 9 % (24-48); MEAN CORPUSCULAR HEMOGLOBIN 33 pg (25-35); MEAN CORPUSCULAR HGB CONC 33 g/dL (31-37); MEAN CORPUSCULAR VOLUME 100 fL (79-100); MONO # 0.5 x10^3/uL (0.0-1.1); MONO % 7 % (0-9); NEUT # 5.7 x10^3uL (1.8-7.7); NEUT % 79 % (31-73); PLATELET COUNT 187 x10^3/uL (140-400); RED BLOOD COUNT 3.28 x10^6/uL (4.30-5.70); RED CELL DISTRIBUTION WIDTH 14.3 % (11.5-14.5); WHITE BLOOD COUNT 7.2 x10^3/uL (4.0-11.0)
[2018-01-14 06:48] LABS: ALBUMIN 1.6 g/dL (3.4-5.0); CALCIUM 7.8 mg/dL (8.5-10.1); CREATININE 5.7 mg/dL (0.7-1.3); DIRECT BILIRUBIN 0.4 mg/dL (0.0-0.2); GFR 10.9; MAGNESIUM 1.8 mg/dL (1.8-2.4); POTASSIUM 4.1 mmol/L (3.5-5.1); TOTAL BILIRUBIN 0.6 mg/dL (0.2-1.0); TOTAL PROTEIN 5.9 g/dL (6.4-8.2)
[2018-01-14] MEDS: GEMFIBROZIL 600 MG TABLET. PO SCH ×2 (07:30→16:30)
[2018-01-14] MEDS: IPRATRPIUM/ALBUTEROL 0.5/2.5MG 3 ML NEBU. NEB SCH ×4 (07:42→19:39)
--- NOTE | 2018-01-14 07:42 | PDOC ---
Infectious Disease Note Subjective Subjective Intubated/sedated ROS ROS unable to obtain Vital Sign Vital Signs Vital Signs Date Time Temp Pulse Resp B/P (MAP) Pulse Ox O2 Delivery O2 Flow Rate FiO2 01/14/18 06:00 93 24 131/77 (95) 100 Ventilator 01/14/18 04:00 99.0 99.0 Physical Exam PHYSICAL EXAM GENERAL: The patient is slightly propped up in bed, sedated and intubated. HEENT: Pupils small and equal. ETT and NGT in place. NECK: Supple/ No JVD LUNGS: Diminished aeration in the bases. HEART: Regular rhythm. ABDOMEN: Obese. Hypoactive bowel sounds, soft, no grimace or guarding to palpation. GENITOURINARY: Indwelling Cook in place. EXTREMITIES: No gross edema or cyanosis. SKIN: He has tattoos. Warm, Multiple small scabs on both legs. NEUROLOGIC: Unresponsive/sedated. RIJ - clean. PIV clean Labs Lab Laboratory Tests Test 01/13/18 08:30 01/13/18 12:38 01/13/18 18:27 01/13/18 23:58 Group A Streptococcus Rapid Negative (NEGATIVE) Glucose (Fingerstick) 235 mg/dL (70-99) 255 mg/dL (70-99) 235 mg/dL (70-99) Test 01/14/18 05:40 01/14/18 06:00 Glucose (Fingerstick) 130 mg/dL (70-99) White Blood Count 7.2 x10^3/uL (4.0-11.0) Red Blood Count 3.28 x10^6/uL (4.30-5.70) Hemoglobin 10.8 g/dL (13.0-17.5) Hematocrit 32.6 % (39.0-53.0) Mean Corpuscular Volume 100 fL (79-100) Mean Corpuscular Hemoglobin 33 pg (25-35) Mean Corpuscular Hemoglobin Concent 33 g/dL (31-37) Red Cell Distribution Width 14.3 % (11.5-14.5) Platelet Count 187 x10^3/uL (140-400) Neutrophils (%) (Auto) 79 % (31-73) Lymphocytes (%) (Auto) 9 % (24-48) Monocytes (%) (Auto) 7 % (0-9) Eosinophils (%) (Auto) 5 % (0-3) Basophils (%) (Auto) 0 % (0-3) Neutrophils # (Auto) 5.7 x10^3uL (1.8-7.7) Lymphocytes # (Auto) 0.6 x10^3/uL (1.0-4.8) Monocytes # (Auto) 0.5 x10^3/uL (0.0-1.1) Eosinophils # (Auto) 0.3 x10^3/uL (0.0-0.7) Basophils # (Auto) 0.0 x10^3/uL (0.0-0.2) Sodium Level 142 mmol/L (136-145) Potassium Level 4.1 mmol/L (3.5-5.1) Chloride Level 108 mmol/L (98-107) Carbon Dioxide Level 23 mmol/L (21-32) Anion Gap 11 (6-14) Blood Urea Nitrogen 37 mg/dL (8-26) Creatinine 5.7 mg/dL (0.7-1.3) Estimated GFR (Cockcroft-Gault) 10.9 Glucose Level 183 mg/dL (70-99) Calcium Level 7.8 mg/dL (8.5-10.1) Magnesium Level 1.8 mg/dL (1.8-2.4) Total Bilirubin 0.6 mg/dL (0.2-1.0) Direct Bilirubin 0.4 mg/dL (0.0-0.2) Aspartate Amino Transf (AST/SGOT) 31 U/L (15-37) Alanine Aminotransferase (ALT/SGPT) 25 U/L (16-63) Alkaline Phosphatase 66 U/L (46-116) Total Protein 5.9 g/dL (6.4-8.2) Albumin 1.6 g/dL (3.4-5.0) Micro CT Impression: 1. There is evidence of pancreatitis, diffuse inflammatory change associated with the enlarged pancreas. 2. There is prominent colonic wall thickening of the ascending colon and hepatic flexure and questionably minimally of the descending colon, evidence of colitis. There is minimal nonspecific free fluid more eccentric to the right abdomen. 3. There is diffuse hepatic steatosis and hepatomegaly. 4. There are infiltrates of the lower lobes bilaterally at the lung bases and also the visualized posterior aspect of the right upper lobe. There is very minimal left pleural effusion. 5. There is a small nonobstructive left renal calculus. Microbiology 01/11/18 Blood Culture - Preliminary, Resulted NO GROWTH AFTER 1 DAY Objective Assessment Pancreatitis Fever likely sec to above/+- aspiration/? infection - better DENISHA - worse Aspiration pneumonia.- Group A strep neg. Gram stain from sputum GPC in pairs from 01/12 Acute encephalopathy with hallucinations and behavioral change Lactic acidosis, improved. Heavy alcohol use. Hyperglycemia. Worsening back pain with urinary incontinence prior to admission. History of methicillin-resistant Staphylococcus aureus. Morbid obesity Plan Plan of Care Cont Zosyn to 2.25 IV q 8/ Zyvox/Doxy fever improved F/u Strep pneumo/legionella F/u Sputum culture BC in process Monitor labs in am/temp D/w nursing Critically ill BENITO GEIGER MD Jan 14, 2018 07:42
[2018-01-14 07:55] LABS: BASE EXCESS ABG -8 mmol/L (-3-3); HCO3 ABG 20 mmol/L (21-28); PCO2 ABG 47 mmHg (35-46); PO2 ABG 66 mmHg (75-108); SAT O2 ABG 94 % (92-99)
[2018-01-14 07:58] LABS: FIO2 ABG 50
--- NOTE | 2018-01-14 08:07 | PDOC ---
PROGRESS NOTES Chief Complaint Chief Complaint 1. Acute respiratory failure. 2. etoh intoxication versus dependence, not protecting airway hence intubated at the emergency room 2. LLL pneumonia. 3. Sepsis - LLL pneumonia 4. Severe agitation, could be secondary to alcohol withdrawal versus sepsis versus others. 5. Hyperglycemia, with HYPERTRIGLYCERIDEMIA 6. Elevated BNP and troponin elevation 7. History of alcohol abuse. 8. Obesity BMI 39 - poss obstructive sleep apnea-hypopnea syndrome. History of Present Illness History of Present Illness Admitted with hallucinations and combative, was intubated soon after admission. Ketonuria on UA Intubated sedated, father states this is likely polysubstance abuse withdrawal Overnight: Required vecuronium fighting vent, Creatinine 5.9 this morning but making urine, Triglycerides are high 800s and lipase in 400s. A/P: 1. Acute respiratory failure - 22/550/50% peep 7, appears to be developing PNA in LL on CXR, on zyvox 2. etoh intoxication versus dependence, not protecting airway hence intubated at the emergency room - will not wean with fevers 2. LLL pneumonia - changed to zyvox 3. Sepsis - LLL pneumonia - cont fluids 4. Acute renal failure - Cr 1.4-->4.4 - likely from sepsis, hypotension, will consult nephrology, may need HD in the near future, but making urine 5. Severe agitation, could be secondary to alcohol withdrawal versus sepsis versus others. Did paralyze last night, opens eyes with any weaning 6. Hyperglycemia, with HYPERTRIGLYCERIDEMIA - insulin GTT. Will change to TPN from NGT feeds 2/2 his elevated lipase 7. Elevated BNP and troponin elevation - likely from sepsis - cardiology seeing 8. History of alcohol abuse - on precedex, versed, fentanyl for likely withdrawal 8. Obesity BMI 39 - poss obstructive sleep apnea-hypopnea syndrome. Heparin SQ Already on PPI IV nutrition consult for tube feeds-->TPN today We will need alcohol rehabilitation referrals once extubated Supportive care Further conditions pending course. Met with his father, he is acutely worsening Vitals Vitals Vital Signs Date Time Temp Pulse Resp B/P (MAP) Pulse Ox O2 Delivery O2 Flow Rate FiO2 01/14/18 07:42 96 Ventilator 01/14/18 06:00 93 24 131/77 (95) 01/14/18 04:00 99.0 99.0 Physical Exam Physical Exam GENERAL: The patient is slightly propped up in bed, sedated and intubated. HEENT: Pupils small and equal. ETT and NGT in place. NECK: Supple/ No JVD LUNGS: Diminished aeration in the bases. HEART: Regular rhythm. ABDOMEN: Obese. Hypoactive bowel sounds, soft, no grimace or guarding to palpation. GENITOURINARY: Indwelling Cook in place. EXTREMITIES: No gross edema or cyanosis. SKIN: He has tattoos. Warm, Multiple small scabs on both legs. NEUROLOGIC: Unresponsive/sedated. RIJ - clean. PIV clean General: Other (sedated on a ventilator.) Heart: Regular rate Lungs: Other (decrease bs) Abdomen: Normal bowel sounds Extremities: No clubbing, No cyanosis, No edema, Normal pulses Skin: No rashes, No breakdown Labs LABS Laboratory Tests Test 01/13/18 08:30 01/13/18 12:38 01/13/18 18:27 01/13/18 23:58 Group A Streptococcus Rapid Negative (NEGATIVE) Glucose (Fingerstick) 235 mg/dL (70-99) 255 mg/dL (70-99) 235 mg/dL (70-99) Test 01/14/18 05:40 01/14/18 06:00 01/14/18 07:45 Glucose (Fingerstick) 130 mg/dL (70-99) White Blood Count 7.2 x10^3/uL (4.0-11.0) Red Blood Count 3.28 x10^6/uL (4.30-5.70) Hemoglobin 10.8 g/dL (13.0-17.5) Hematocrit 32.6 % (39.0-53.0) Mean Corpuscular Volume 100 fL (79-100) Mean Corpuscular Hemoglobin 33 pg (25-35) Mean Corpuscular Hemoglobin Concent 33 g/dL (31-37) Red Cell Distribution Width 14.3 % (11.5-14.5) Platelet Count 187 x10^3/uL (140-400) Neutrophils (%) (Auto) 79 % (31-73) Lymphocytes (%) (Auto) 9 % (24-48) Monocytes (%) (Auto) 7 % (0-9) Eosinophils (%) (Auto) 5 % (0-3) Basophils (%) (Auto) 0 % (0-3) Neutrophils # (Auto) 5.7 x10^3uL (1.8-7.7) Lymphocytes # (Auto) 0.6 x10^3/uL (1.0-4.8) Monocytes # (Auto) 0.5 x10^3/uL (0.0-1.1) Eosinophils # (Auto) 0.3 x10^3/uL (0.0-0.7) Basophils # (Auto) 0.0 x10^3/uL (0.0-0.2) Sodium Level 142 mmol/L (136-145) Potassium Level 4.1 mmol/L (3.5-5.1) Chloride Level 108 mmol/L (98-107) Carbon Dioxide Level 23 mmol/L (21-32) Anion Gap 11 (6-14) Blood Urea Nitrogen 37 mg/dL (8-26) Creatinine 5.7 mg/dL (0.7-1.3) Estimated GFR (Cockcroft-Gault) 10.9 Glucose Level 183 mg/dL (70-99) Calcium Level 7.8 mg/dL (8.5-10.1) Magnesium Level 1.8 mg/dL (1.8-2.4) Total Bilirubin 0.6 mg/dL (0.2-1.0) Direct Bilirubin 0.4 mg/dL (0.0-0.2) Aspartate Amino Transf (AST/SGOT) 31 U/L (15-37) Alanine Aminotransferase (ALT/SGPT) 25 U/L (16-63) Alkaline Phosphatase 66 U/L (46-116) Total Protein 5.9 g/dL (6.4-8.2) Albumin 1.6 g/dL (3.4-5.0) O2 Saturation 94 % (92-99) Arterial Blood pH 7.24 (7.35-7.45) Arterial Blood pCO2 at Patient Temp 47 mmHg (35-46) Arterial Blood pO2 at Patient Temp 66 mmHg (75-108) Arterial Blood HCO3 20 mmol/L (21-28) Arterial Blood Base Excess -8 mmol/L (-3-3) FiO2 50 Assessment and Plan Assessmemt and Plan Problems Medical Problems: (1) Diabetic keto-acidosis Status: Acute (2) Hyperglycemia due to type 2 diabetes mellitus Status: Acute (3) Metabolic acidemia Status: Acute (4) Metabolic encephalopathy Status: Acute Comment Review of Relevant I have reviewed the following items franklyn (where applicable) has been applied. Labs Laboratory Tests Test 01/12/18 11:13 01/12/18 17:23 01/13/18 00:37 01/13/18 06:10 Glucose (Fingerstick) 191 mg/dL (70-99) 223 mg/dL (70-99) 189 mg/dL (70-99) White Blood Count 6.5 x10^3/uL (4.0-11.0) Red Blood Count 3.64 x10^6/uL (4.30-5.70) Hemoglobin 12.1 g/dL (13.0-17.5) Hematocrit 35.7 % (39.0-53.0) Mean Corpuscular Volume 98 fL (79-100) Mean Corpuscular Hemoglobin 33 pg (25-35) Mean Corpuscular Hemoglobin Concent 34 g/dL (31-37) Red Cell Distribution Width 14.1 % (11.5-14.5) Platelet Count 216 x10^3/uL (140-400) Neutrophils (%) (Auto) 80 % (31-73) Lymphocytes (%) (Auto) 11 % (24-48) Monocytes (%) (Auto) 7 % (0-9) Eosinophils (%) (Auto) 2 % (0-3) Basophils (%) (Auto) 0 % (0-3) Neutrophils # (Auto) 5.2 x10^3uL (1.8-7.7) Lymphocytes # (Auto) 0.7 x10^3/uL (1.0-4.8) Monocytes # (Auto) 0.4 x10^3/uL (0.0-1.1) Eosinophils # (Auto) 0.1 x10^3/uL (0.0-0.7) Basophils # (Auto) 0.0 x10^3/uL (0.0-0.2) Sodium Level 140 mmol/L (136-145) Potassium Level 4.8 mmol/L (3.5-5.1) Chloride Level 106 mmol/L (98-107) Carbon Dioxide Level 21 mmol/L (21-32) Anion Gap 13 (6-14) Blood Urea Nitrogen 25 mg/dL (8-26) Creatinine 4.4 mg/dL (0.7-1.3) Estimated GFR (Cockcroft-Gault) 14.8 Glucose Level 232 mg/dL (70-99) Calcium Level 7.9 mg/dL (8.5-10.1) Creatine Kinase 600 U/L (39-308) Test 01/13/18 06:44 01/13/18 07:25 01/13/18 08:30 01/13/18 12:38 Glucose (Fingerstick) 207 mg/dL (70-99) 235 mg/dL (70-99) O2 Saturation 95 % (92-99) Arterial Blood pH 7.28 (7.35-7.45) Arterial Blood pH (Temp corrected) 7.26 Arterial Blood pCO2 at Patient Temp 41 mmHg (35-46) Arterial Blood pCO2 (Temp correct) 44 mmHg Arterial Blood pO2 at Patient Temp 74 mmHg (75-108) Arterial Blood pO2 (Temp corrected) 80 mmHg Arterial Blood HCO3 19 mmol/L (21-28) Arterial Blood Base Excess -7 mmol/L (-3-3) Group A Streptococcus Rapid Negative (NEGATIVE) Test 01/13/18 18:27 01/13/18 23:58 01/14/18 05:40 01/14/18 06:00 Glucose (Fingerstick) 255 mg/dL (70-99) 235 mg/dL (70-99) 130 mg/dL (70-99) White Blood Count 7.2 x10^3/uL (4.0-11.0) Red Blood Count 3.28 x10^6/uL (4.30-5.70) Hemoglobin 10.8 g/dL (13.0-17.5) Hematocrit 32.6 % (39.0-53.0) Mean Corpuscular Volume 100 fL (79-100) Mean Corpuscular Hemoglobin 33 pg (25-35) Mean Corpuscular Hemoglobin Concent 33 g/dL (31-37) Red Cell Distribution Width 14.3 % (11.5-14.5) Platelet Count 187 x10^3/uL (140-400) Neutrophils (%) (Auto) 79 % (31-73) Lymphocytes (%) (Auto) 9 % (24-48) Monocytes (%) (Auto) 7 % (0-9) Eosinophils (%) (Auto) 5 % (0-3) Basophils (%) (Auto) 0 % (0-3) Neutrophils # (Auto) 5.7 x10^3uL (1.8-7.7) Lymphocytes # (Auto) 0.6 x10^3/uL (1.0-4.8) Monocytes # (Auto) 0.5 x10^3/uL (0.0-1.1) Eosinophils # (Auto) 0.3 x10^3/uL (0.0-0.7) Basophils # (Auto) 0.0 x10^3/uL (0.0-0.2) Sodium Level 142 mmol/L (136-145) Potassium Level 4.1 mmol/L (3.5-5.1) Chloride Level 108 mmol/L (98-107) Carbon Dioxide Level 23 mmol/L (21-32) Anion Gap 11 (6-14) Blood Urea Nitrogen 37 mg/dL (8-26) Creatinine 5.7 mg/dL (0.7-1.3) Estimated GFR (Cockcroft-Gault) 10.9 Glucose Level 183 mg/dL (70-99) Calcium Level 7.8 mg/dL (8.5-10.1) Magnesium Level 1.8 mg/dL (1.8-2.4) Total Bilirubin 0.6 mg/dL (0.2-1.0) Direct Bilirubin 0.4 mg/dL (0.0-0.2) Aspartate Amino Transf (AST/SGOT) 31 U/L (15-37) Alanine Aminotransferase (ALT/SGPT) 25 U/L (16-63) Alkaline Phosphatase 66 U/L (46-116) Total Protein 5.9 g/dL (6.4-8.2) Albumin 1.6 g/dL (3.4-5.0) Test 01/14/18 07:45 O2 Saturation 94 % (92-99) Arterial Blood pH 7.24 (7.35-7.45) Arterial Blood pCO2 at Patient Temp 47 mmHg (35-46) Arterial Blood pO2 at Patient Temp 66 mmHg (75-108) Arterial Blood HCO3 20 mmol/L (21-28) Arterial Blood Base Excess -8 mmol/L (-3-3) FiO2 50 Laboratory Tests Test 01/13/18 08:30 01/13/18 12:38 01/13/18 18:27 01/13/18 23:58 Group A Streptococcus Rapid Negative (NEGATIVE) Glucose (Fingerstick) 235 mg/dL (70-99) 255 mg/dL (70-99) 235 mg/dL (70-99) Test 01/14/18 05:40 01/14/18 06:00 01/14/18 07:45 Glucose (Fingerstick) 130 mg/dL (70-99) White Blood Count 7.2 x10^3/uL (4.0-11.0) Red Blood Count 3.28 x10^6/uL (4.30-5.70) Hemoglobin 10.8 g/dL (13.0-17.5) Hematocrit 32.6 % (39.0-53.0) Mean Corpuscular Volume 100 fL (79-100) Mean Corpuscular Hemoglobin 33 pg (25-35) Mean Corpuscular Hemoglobin Concent 33 g/dL (31-37) Red Cell Distribution Width 14.3 % (11.5-14.5) Platelet Count 187 x10^3/uL (140-400) Neutrophils (%) (Auto) 79 % (31-73) Lymphocytes (%) (Auto) 9 % (24-48) Monocytes (%) (Auto) 7 % (0-9) Eosinophils (%) (Auto) 5 % (0-3) Basophils (%) (Auto) 0 % (0-3) Neutrophils # (Auto) 5.7 x10^3uL (1.8-7.7) Lymphocytes # (Auto) 0.6 x10^3/uL (1.0-4.8) Monocytes # (Auto) 0.5 x10^3/uL (0.0-1.1) Eosinophils # (Auto) 0.3 x10^3/uL (0.0-0.7) Basophils # (Auto) 0.0 x10^3/uL (0.0-0.2) Sodium Level 142 mmol/L (136-145) Potassium Level 4.1 mmol/L (3.5-5.1) Chloride Level 108 mmol/L (98-107) Carbon Dioxide Level 23 mmol/L (21-32) Anion Gap 11 (6-14) Blood Urea Nitrogen 37 mg/dL (8-26) Creatinine 5.7 mg/dL (0.7-1.3) Estimated GFR (Cockcroft-Gault) 10.9 Glucose Level 183 mg/dL (70-99) Calcium Level 7.8 mg/dL (8.5-10.1) Magnesium Level 1.8 mg/dL (1.8-2.4) Total Bilirubin 0.6 mg/dL (0.2-1.0) Direct Bilirubin 0.4 mg/dL (0.0-0.2) Aspartate Amino Transf (AST/SGOT) 31 U/L (15-37) Alanine Aminotransferase (ALT/SGPT) 25 U/L (16-63) Alkaline Phosphatase 66 U/L (46-116) Total Protein 5.9 g/dL (6.4-8.2) Albumin 1.6 g/dL (3.4-5.0) O2 Saturation 94 % (92-99) Arterial Blood pH 7.24 (7.35-7.45) Arterial Blood pCO2 at Patient Temp 47 mmHg (35-46) Arterial Blood pO2 at Patient Temp 66 mmHg (75-108) Arterial Blood HCO3 20 mmol/L (21-28) Arterial Blood Base Excess -8 mmol/L (-3-3) FiO2 50 Microbiology 01/11/18 Blood Culture - Preliminary, Resulted NO GROWTH AFTER 2 DAYS 01/12/18 - Final, Resulted 01/12/18 - Final, Resulted 01/12/18 - Final, Resulted 01/12/18 Gram Stain Evaluation - Final, Resulted 01/12/18 Sputum Culture, Resulted Pending Medications Current Medications Lorazepam (Ativan) 1 mg 1X ONCE IV Last administered on 01/11/18at 12:25; Start 01/11/18 at 12:30; Stop 01/11/18 at 12:31; Status DC Lorazepam (Ativan) 2 mg 1X ONCE IV Last administered on 01/11/18at 13:03; Start 01/11/18 at 12:45; Stop 01/11/18 at 12:46; Status DC Dextrose/Sodium Chloride 1,000 ml @ 0 mls/hr 1X ONCE IV ; Start 01/11/18 at 13:00; Stop 01/11/18 at 13:16; Status DC Sodium Chloride 1,000 ml @ 1,000 mls/hr 1X ONCE IV Last administered on 01/11at 13:41; Start 01/11/18 at 13:30; Stop 01/11/18 at 14:29; Status DC Sodium Chloride 1,000 ml @ 1,000 mls/hr 1X ONCE IV Last administered on 01/11at 13:42; Start 01/11/18 at 13:30; Stop 01/11/18 at 14:29; Status DC Lorazepam (Ativan) 1 mg 1X ONCE IV Last administered on 01/11/18at 15:08; Start 01/11/18 at 13:30; Stop 01/11/18 at 13:31; Status DC Lorazepam (Ativan) 1 mg 1X ONCE IV Last administered on 01/11/18at 13:43; Start 01/11/18 at 13:30; Stop 01/11/18 at 13:33; Status DC Aspirin (Children'S Aspirin) 324 mg 1X ONCE PO Last administered on at 14:02; Start 01/11/18 at 13:45; Stop 01/11/18 at 13:46; Status DC Haloperidol Lactate (Haldol Inj) 5 mg PRN Q6HRS PRN IVP SEVERE AGITATION Last administered on 01/14/18at 04:32; Start 01/11/18 at 16:15 Lorazepam (Ativan) 4 mg PRN Q4HRS PRN IV ANXIETY / AGITATION Last administered on 01/14/18at 04:03; Start 01/11/18 at 16:15 Multivitamins 10 ml/Thiamine HCl 100 mg/Folic Acid 1 mg/Sodium Chloride 1,011.2 ml @ 125 mls/ hr DAILY IV Last administered on 01/13/18at 09:12; Start at 17:00 Dexmedetomidine HCl 200 mcg/ Sodium Chloride 50 ml @ 0 mls/hr CONT PRN IV PER PROTOCOL Last administered on 01/11/18at 17:00; Start 01/11/18 at 16:45; Stop 01/11/18 at 18:38; Status DC Sodium Chloride 500 ml @ 500 mls/hr 1X PRN PRN IV SEE COMMENTS; Start at 16:45 Atropine Sulfate (ATROPINE 0.5mg SYRINGE) 0.5 mg PRN Q5MIN PRN IV SEE COMMENTS ; Start 01/11/18 at 16:45 Lorazepam (Ativan) 4 mg PRN Q1HR PRN PO For CIWA 8-14; Start 01/11/18 at 18:15 Lorazepam (Ativan) 8 mg PRN Q1HR PRN PO For CIWA 15 or greater; Start at 18:15 Lorazepam (Ativan) 2 mg PRN Q1HR PRN IV For CIWA 8-14; Start 01/11/18 at 18:15 Lorazepam (Ativan) 4 mg PRN Q1HR PRN IV For CIWA 15 or greater Last administered on 01/12/18at 23:11; Start 01/11/18 at 18:15 Diphenhydramine HCl (Benadryl) 25 mg PRN Q15MIN PRN IVP EPS symptoms 2'Haldol admin; Start 01/11/18 at 18:15 Olanzapine (ZyPREXA IM) 10 mg 1X ONCE IM Last administered on 01/11/18at 18:42 ; Start 01/11/18 at 18:45; Stop 01/11/18 at 18:46; Status DC Dexmedetomidine HCl 200 mcg/ Sodium Chloride 50 ml @ 7 mls/hr CONT PRN IV PER PROTOCOL; Start 01/11/18 at 18:38; Stop 01/11/18 at 21:19; Status DC Propofol 100 ml @ As Directed STK-MED ONCE IV ; Start 01/11/18 at 18:43; Stop 01/11/18 at 18:44; Status DC Succinylcholine Chloride (Anectine) 200 mg STK-MED ONCE .ROUTE ; Start at 18:44; Stop 01/11/18 at 18:45; Status DC Fentanyl Citrate 30 ml @ 2.5 mls/hr CONT PRN IV PER PROTOCOL Last administered on 01/14/18at 04:15; Start 01/11/18 at 19:00 Propofol 100 ml @ 4.2 mls/hr CONT PRN IV PER PROTOCOL; Start 01/11/18 at 18: 45; Status Cancel Fentanyl Citrate (Fentanyl 2ml Vial) 25 mcg PRN Q1HR PRN IV SEE COMMENTS.; Start 01/11/18 at 18:45 Fentanyl Citrate (Fentanyl 2ml Vial) 50 mcg PRN Q1HR PRN IV SEE COMMENTS. Last administered on 01/11/18at 20:21; Start 01/11/18 at 18:45 Morphine Sulfate (Morphine Sulfate) 2 mg PRN Q1HR PRN IV SEE COMMENTS.; Start 01/11/18 at 18:45 Morphine Sulfate (Morphine Sulfate) 4 mg PRN Q1HR PRN IV SEE COMMENTS.; Start 01/11/18 at 18:45 Hydromorphone HCl (Dilaudid) 0.2 mg PRN Q1HR PRN IV SEE COMMENTS.; Start 01/11 at 18:45 Hydromorphone HCl (Dilaudid) 0.4 mg PRN Q1HR PRN IV SEE COMMENTS.; Start 01/11 at 18:45 Morphine Sulfate (Morphine Sulfate) 2 mg PRN Q1HR PRN IV ; Start 01/11/18 at 18:45; Status UNV Morphine Sulfate (Morphine Sulfate) 4 mg PRN Q1HR PRN IV ; Start 01/11/18 at 18:45; Status UNV Midazolam HCl 100 ml @ 1 mls/hr CONT PRN IV PER PROTOCOL Last administered on 01/14/18at 04:12; Start 01/11/18 at 18:45 Epinephrine HCl (EPINEPHrine SYRINGE) 1 mg STK-MED ONCE .ROUTE ; Start at 18:56; Stop 01/11/18 at 18:57; Status DC Propofol 100 ml @ 2.103 mls/ hr CONT PRN IV SEE I/O RECORD Last administered on 01/11/18at 20:23; Start 01/11/18 at 19:00 Vecuronium Rosine (Norcuron Bolus) 10 mg STK-MED ONCE IV ; Start 01/11/18 at 19:02; Stop 01/11/18 at 19:03; Status DC Vancomycin HCl (Vanco Per Pharmacy) 1 each PRN DAILY PRN MC SEE COMMENTS Last administered on 01/12/18at 11:47; Start 01/11/18 at 20:15; Stop 01/12/18 at 13 :14; Status DC Piperacillin Sod/ Tazobactam Sod (Zosyn Per Pharmacy) 1 each PRN DAILY PRN MC SEE COMMENTS; Start 01/11/18 at 20:15; Stop 01/13/18 at 08:00; Status DC Piperacillin Sod/ Tazobactam Sod 4.5 gm/Sodium Chloride 100 ml @ 200 mls/hr Q6HRS IV Last administered on 01/13/18at 06:48; Start 01/12/18 at 00:00; Stop 01/13/18 at 07:57; Status DC Vancomycin HCl 2 gm/Sodium Chloride 500 ml @ 250 mls/hr 1X ONCE IV Last administered on 01/11/18at 21:00; Start 01/11/18 at 21:00; Stop 01/11/18 at 22 :59; Status DC Insulin Human Lispro (HumaLOG) 0-7 UNITS Q6HRS SQ Last administered on at 00:00; Start 01/12/18 at 00:00 Dextrose (Dextrose 50%-Water Syringe) 12.5 gm PRN Q15MIN PRN IV SEE COMMENTS; Start 01/11/18 at 21:00 Sodium Chloride 1,000 ml @ 100 mls/hr Q10H IV Last administered on 01/14/18at 06:06; Start 01/11/18 at 21:00 Dexmedetomidine HCl 200 mcg/ Sodium Chloride 50 ml @ 0 mls/hr CONT PRN IV PER PROTOCOL Last administered on 01/14/18at 07:49; Start 01/11/18 at 21:00 Acetaminophen (Tylenol) 650 mg PRN Q6HRS PRN PEG MILD PAIN / TEMP Last administered on 01/13/18at 02:42; Start 01/11/18 at 21:30 Magnesium Sulfate 50 ml @ 25 mls/hr 1X ONCE IV Last administered on at 01:27; Start 01/12/18 at 01:00; Stop 01/12/18 at 02:59; Status DC Sodium Chloride 1,000 ml @ 1,000 mls/hr 1X ONCE IV Last administered on 01/12at 01:00; Start 01/12/18 at 04:30; Stop 01/12/18 at 05:29; Status DC Vancomycin HCl 1.5 gm/Sodium Chloride 500 ml @ 250 mls/hr Q12H IV Last administered on 01/12/18at 08:44; Start 01/12/18 at 09:00; Stop 01/12/18 at 13 :14; Status DC Vancomycin HCl (Vancomycin Trough Level) 1 each 1X ONCE MC ; Start 01/12/18 at 20:30; Stop 01/12/18 at 20:30; Status DC Sodium Chloride 500 ml @ 500 mls/hr 1X ONCE IV Last administered on at 07:26; Start 01/12/18 at 07:00; Stop 01/12/18 at 07:59; Status DC Famotidine (Pepcid Vial) 20 mg BID IVP Last administered on 01/13/18at 20:49; Start 01/12/18 at 09:00 Albuterol/ Ipratropium (Duoneb) 3 ml RTQID NEB Last administered on 01/14/18at 07:42; Start 01/12/18 at 08:00 Heparin Sodium (Porcine) (Heparin Sodium) 5,000 unit Q8HRS SQ Last administered on 01/14/18at 05:43; Start 01/12/18 at 14:00 Gemfibrozil (Lopid) 600 mg BIDBFRMEAL PO ; Start 01/12/18 at 10:00 Linezolid/Dextrose 300 ml @ 300 mls/hr Q12HR IV Last administered on at 20:49; Start 01/12/18 at 21:00 Vecuronium Rosine (Norcuron Bolus) 10 mg STK-MED ONCE IV ; Start 01/11/18 at 19:00; Stop 01/13/18 at 07:59; Status DC Succinylcholine Chloride (Anectine) 200 mg STK-MED ONCE .ROUTE ; Start at 19:00; Stop 01/13/18 at 07:59; Status DC Propofol (Diprivan) 1,000 mg STK-MED ONCE IV ; Start 01/11/18 at 19:00; Stop 01/13/18 at 07:59; Status DC Epinephrine HCl (EPINEPHrine SYRINGE) 1 mg STK-MED ONCE .ROUTE ; Start at 19:00; Stop 01/13/18 at 07:59; Status DC Piperacillin Sod/ Tazobactam Sod 2.25 gm/Sodium Chloride 50 ml @ 100 mls/hr Q8HRS IV Last administered on 01/14/18at 05:43; Start 01/13/18 at 14:00 Doxycycline Hyclate 100 mg/ Dextrose 100 ml @ 50 mls/hr Q12HR IV Last administered on 01/13/18at 20:49; Start 01/13/18 at 09:00 Sodium Bicarbonate (Sodium Bicarb Adult 8.4% Syr) 100 meq 1X ONCE IV Last administered on 01/13/18at 09:12; Start 01/13/18 at 09:15; Stop 01/13/18 at 09 :16; Status DC Sodium Chloride 1,000 ml @ 1,000 mls/hr Q1H IV ; Start 01/13/18 at 12:30; Status Cancel Sodium Chloride 1,000 ml @ 1,000 mls/hr 1X ONCE IV Last administered on 01/13at 12:15; Start 01/13/18 at 12:15; Stop 01/13/18 at 13:14; Status DC Vecuronium Rosine (Norcuron Bolus) 6 mg PRN Q6HRS PRN IV VENT ASYNCHRONY Last administered on 01/14/18at 05:26; Start 01/13/18 at 12:30 Active Scripts Active Rep[facility] Maxitrol Eye Drops (Brandon/Polymyx B Sulf/Dexameth) 5 Ml Drops.susp 1 Drop OD QID Multivitamins (Multivitamin) 1 Each Tablet 1 Tab PO DAILY Magnesium (Magnesium Oxide) 400 Mg Capsule 1 Cap PO DAILY Calcium (Calcium Carbonate) 500 Mg Tab.chew 500 Mg PO Lansoprazole 30 Mg Capsule.dr 1 Cap PO DAILY Losartan Potassium 25 Mg Tablet 25 Mg PO DAILY Tizanidine Hcl 4 Mg Tablet 1 Tab PO TID Tramadol Hcl 50 Mg Tablet 50 Mg PO DAILY PRN Bystolic (Nebivolol Hcl) 20 Mg Tablet 20 Mg PO DAILY Cymbalta (Duloxetine Hcl) 20 Mg Capsule.dr 1 Cap PO DAILY Valacyclovir (Valacyclovir Hcl) 1,000 Mg Tablet 1 Tab PO DAILY Ibuprofen 400 Mg Tablet 400 Mg PO PRN Q6HRS PRN Bystolic (Nebivolol) 10 Mg Tablet 20 Mg PO DAILY Amlodipine Besylate 10 Mg Tablet 10 Mg PO DAILY Vitals/I & O Vital Sign - Last 24 Hours 01/13/18 01/13/18 01/13/18 01/13/18 09:00 09:35 10:00 11:00 Pulse 95 90 89 Resp 24 24 24 B/P (MAP) 117/65 (82) 125/79 (94) 113/71 (85) Pulse Ox 98 95 96 96 O2 Delivery Ventilator Ventilator Ventilator Ventilator 01/13/18 01/13/18 01/13/1818 11:21 12:00 12:00 13:00 Temp 99.3 99.3 Pulse 89 89 Resp 24 24 B/P (MAP) 106/65 (79) 106/65 (79) Pulse Ox 94 96 98 O2 Delivery Ventilator Mechanical Ventilator Ventilator Ventilator 01/13/18 01/13/18 01/13/18 01/13/18 13:06 13:20 14:00 15:00 Pulse 88 88 Resp 24 24 24 B/P (MAP) 124/71 (88) 133/71 (91) Pulse Ox 94 98 95 O2 Delivery Ventilator Ventilator Ventilator Ventilator 01/13/18 01/13/18 01/13/18 01/13/18 15:51 16:00 16:00 17:00 Temp 99.5 99.5 Pulse 89 84 Resp 24 24 B/P (MAP) 152/69 (96) 105/67 (80) Pulse Ox 93 98 97 O2 Delivery Ventilator Mechanical Ventilator Ventilator Ventilator 01/13/18 01/13/18 01/13/18 01/13/18 18:00 18:30 19:00 19:00 Pulse 82 82 Resp 24 24 24 24 B/P (MAP) 108/65 (79) 107/65 (79) Pulse Ox 97 97 O2 Delivery Ventilator Ventilator Ventilator 01/13/18 01/13/18 01/13/18 01/13/18 20:00 20:00 20:03 21:00 Temp 98.8 98.8 Pulse 83 85 Resp 24 24 B/P (MAP) 101/62 (75) 103/68 (80) Pulse Ox 98 98 98 O2 Delivery Ventilator Mechanical Ventilator Ventilator Ventilator 01/13/18 01/13/18 01/13/18 01/13/18 21:00 22:00 23:00 23:34 Pulse 84 83 Resp 24 24 B/P (MAP) 103/64 (77) 98/65 (76) Pulse Ox 98 97 97 97 O2 Delivery Ventilator Ventilator Ventilator Ventilator 01/13/18 01/14/18 01/14/18 01/14/18 23:59 00:00 00:13 01:00 Temp 98.2 98.2 Pulse 82 81 Resp 24 24 B/P (MAP) 97/62 (74) 94/57 (69) Pulse Ox 96 98 O2 Delivery Mechanical Ventilator Ventilator Ventilator Ventilator 10/1601/14/18 01/14/18 01/14/18 01:00 02:00 03:00 03:13 Pulse 82 82 Resp 24 24 B/P (MAP) 100/62 (75) 91/51 (64) Pulse Ox 98 100 100 100 O2 Delivery Ventilator Ventilator Ventilator Ventilator 01/14/18 01/14/18 01/14/18 01/14/18 04:00 04:00 04:15 04:45 Temp 99.0 99.0 Pulse 91 Resp 24 B/P (MAP) 141/83 (102) Pulse Ox 99 O2 Delivery Mechanical Ventilator Ventilator Ventilator Ventilator 01/14/18 01/14/18 01/14/18 01/14/18 05:00 06:00 06:00 07:42 Pulse 93 93 Resp 24 24 B/P (MAP) 124/68 (86) 131/77 (95) Pulse Ox 98 99 100 96 O2 Delivery Ventilator Ventilator Ventilator Ventilator Intake and Output 01/13/18 01/13/18 01/14/18 15:00 23:00 07:00 Intake Total 3794 ml 1505 ml Output Total 126 ml 220 ml 173 ml Balance -126 ml 3574 ml 1332 ml JOSE APPIAH MD Jan 14, 2018 08:07
[2018-01-14] MEDS: MULTIVIT INFUSN,ADULT 4,VIT K 10 ML, THIAMINE INJ 100 MG, FOLIC ACID INJ 1 MG in IV NOR... IV SCH (08:19)
--- NOTE | 2018-01-14 09:16 | PDOC ---
SUBJECTIVE ROS Intubared, Improved UOP this am OBJECTIVE Vital Signs Vital Signs Date Time Temp Pulse Resp B/P (MAP) Pulse Ox O2 Delivery O2 Flow Rate FiO2 01/14/18 07:42 96 Ventilator 01/14/18 06:00 93 24 131/77 (95) 01/14/18 04:00 99.0 99.0 I & 0 Intake and Output 01/14/18 07:00 Intake Total 5299 ml Output Total 519 ml Balance 4780 ml IV Total 5299 ml Output Urine Total 519 ml PHYSICAL EXAM Physical Exam GENERAL: sedated and intubated. HEENT: ETT and NGT in place. NECK: Supple/ No JVD LUNGS: Diminished aeration in the bases. HEART: Regular rhythm. ABDOMEN: Obese. : Indwelling Cook in place. EXTREMITIES: No edema SKIN: Has tattoos. No rash., Bitten by Fire ants- scabs in LE NEUROLOGIC: Unresponsive/sedated. 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 Acute encephalopathy with hallucinations and behavioral change. Heavy alcohol use Discussed with RN COMMENT/RELEVANT DATA Meds Current Medications Medications (Trade) Dose Ordered Sig/Yamile Start Time Stop Time Status Last Admin Dose Admin Acetaminophen (Tylenol) 650 mg PRN Q6HRS PRN 01/11/18 21:30 01/13/18 02:42 650 MG Albuterol/ Ipratropium (Duoneb) 3 ml RTQID 01/12/18 08:00 01/14/18 07:42 3 ML Aspirin (Children'S Aspirin) 324 mg 1X ONCE 01/11/18 13:45 01/11/18 13:46 DC 01/11/18 14:02 324 MG Atropine Sulfate (ATROPINE 0.5mg SYRINGE) 0.5 mg PRN Q5MIN PRN 01/11/18 16:45 Dexmedetomidine HCl 200 mcg/ Sodium Chloride 50 ml @ 0 mls/hr CONT PRN 01/11/18 21:00 01/14/18 07:49 24.76 MLS/HR Dextrose (Dextrose 50%-Water Syringe) 12.5 gm PRN Q15MIN PRN 01/11/18 21:00 Dextrose/Sodium Chloride 1,000 ml @ 0 mls/hr 1X ONCE 01/11/18 13:00 01/11/18 13:16 DC Diphenhydramine HCl (Benadryl) 25 mg PRN Q15MIN PRN 01/11/18 18:15 Doxycycline Hyclate 100 mg/ Dextrose 100 ml @ 50 mls/hr Q12HR 01/13/18 09:00 01/13/18 20:49 50 MLS/HR Epinephrine HCl (EPINEPHrine SYRINGE) 1 mg STK-MED ONCE 01/11/18 19:00 01/13/18 07:59 DC Famotidine (Pepcid Vial) 20 mg BID 01/12/18 09:00 01/13/18 20:49 20 MG Fentanyl Citrate (Fentanyl 2ml Vial) 50 mcg PRN Q1HR PRN 01/11/18 18:45 01/11/18 20:21 50 MCG Gemfibrozil (Lopid) 600 mg BIDBFRMEAL 01/12/18 10:00 Haloperidol Lactate (Haldol Inj) 5 mg PRN Q6HRS PRN 01/11/18 16:15 01/14/18 04:32 5 MG Heparin Sodium (Porcine) (Heparin Sodium) 5,000 unit Q8HRS 01/12/18 14:00 01/14/18 05:43 5,000 UNIT Hydromorphone HCl (Dilaudid) 0.4 mg PRN Q1HR PRN 01/11/18 18:45 Insulin Human Lispro (HumaLOG) 0-7 UNITS Q6HRS 01/12/18 00:00 01/14/18 00:00 4 UNITS Linezolid/Dextrose 300 ml @ 300 mls/hr Q12HR 01/12/18 21:00 01/13/18 20:49 300 MLS/HR Lorazepam (Ativan) 4 mg PRN Q1HR PRN 01/11/18 18:15 01/12/18 23:11 4 MG Magnesium Sulfate 50 ml @ 25 mls/hr 1X ONCE 01/12/18 01:00 01/12/18 02:59 DC 01/12/18 01:27 25 MLS/HR Midazolam HCl 100 ml @ 1 mls/hr CONT PRN 01/11/18 18:45 01/14/18 04:12 10 MLS/HR Morphine Sulfate (Morphine Sulfate) 4 mg PRN Q1HR PRN 01/11/18 18:45 UNV Multivitamins 10 ml/Thiamine HCl 100 mg/Folic Acid 1 mg/Sodium Chloride 1,011.2 ml @ 125 mls/ hr DAILY 01/11/18 17:00 01/14/18 08:19 125 MLS/HR Olanzapine (ZyPREXA IM) 10 mg 1X ONCE 01/11/18 18:45 01/11/18 18:46 DC 01/11/18 18:42 10 MG Piperacillin Sod/ Tazobactam Sod (Zosyn Per Pharmacy) 1 each PRN DAILY PRN 01/11/18 20:15 01/13/18 08:00 DC Piperacillin Sod/ Tazobactam Sod 2.25 gm/Sodium Chloride 50 ml @ 100 mls/hr Q8HRS 01/13/18 14:00 01/14/18 05:43 100 MLS/HR Piperacillin Sod/ Tazobactam Sod 4.5 gm/Sodium Chloride 100 ml @ 200 mls/hr Q6HRS 01/12/18 00:00 01/13/18 07:57 DC 01/13/18 06:48 200 MLS/HR Propofol (Diprivan) 1,000 mg STK-MED ONCE 01/11/18 19:00 01/13/18 07:59 DC Sodium Bicarbonate (Sodium Bicarb Adult 8.4% Syr) 100 meq 1X ONCE 01/13/18 09:15 01/13/18 09:16 DC 01/13/18 09:12 100 MEQ Sodium Chloride 1,000 ml @ 1,000 mls/hr 1X ONCE 01/13/18 12:15 01/13/18 13:14 DC 01/13/18 12:15 1,000 MLS/HR Succinylcholine Chloride (Anectine) 200 mg STK-MED ONCE 01/11/18 19:00 01/13/18 07:59 DC Vancomycin HCl (Vanco Per Pharmacy) 1 each PRN DAILY PRN 01/11/18 20:15 01/12/18 13:14 DC 01/12/18 11:47 1 EACH Vancomycin HCl (Vancomycin Trough Level) 1 each 1X ONCE 01/12/18 20:30 01/12/18 20:30 DC Vancomycin HCl 1.5 gm/Sodium Chloride 500 ml @ 250 mls/hr Q12H 01/12/18 09:00 01/12/18 13:14 DC 01/12/18 08:44 250 MLS/HR Vancomycin HCl 2 gm/Sodium Chloride 500 ml @ 250 mls/hr 1X ONCE 01/11/18 21:00 01/11/18 22:59 DC 01/11/18 21:00 250 MLS/HR Vecuronium [place] (Norcuron Bolus) 6 mg PRN Q6HRS PRN 01/13/18 12:30 01/14/18 05:26 6 MG Lab Laboratory Tests Test 01/13/18 12:38 01/13/18 18:27 01/13/18 23:58 01/14/18 05:40 Glucose (Fingerstick) 235 mg/dL (70-99) 255 mg/dL (70-99) 235 mg/dL (70-99) 130 mg/dL (70-99) Test 01/14/18 06:00 01/14/18 07:45 White Blood Count 7.2 x10^3/uL (4.0-11.0) Red Blood Count 3.28 x10^6/uL (4.30-5.70) Hemoglobin 10.8 g/dL (13.0-17.5) Hematocrit 32.6 % (39.0-53.0) Mean Corpuscular Volume 100 fL (79-100) Mean Corpuscular Hemoglobin 33 pg (25-35) Mean Corpuscular Hemoglobin Concent 33 g/dL (31-37) Red Cell Distribution Width 14.3 % (11.5-14.5) Platelet Count 187 x10^3/uL (140-400) Neutrophils (%) (Auto) 79 % (31-73) Lymphocytes (%) (Auto) 9 % (24-48) Monocytes (%) (Auto) 7 % (0-9) Eosinophils (%) (Auto) 5 % (0-3) Basophils (%) (Auto) 0 % (0-3) Neutrophils # (Auto) 5.7 x10^3uL (1.8-7.7) Lymphocytes # (Auto) 0.6 x10^3/uL (1.0-4.8) Monocytes # (Auto) 0.5 x10^3/uL (0.0-1.1) Eosinophils # (Auto) 0.3 x10^3/uL (0.0-0.7) Basophils # (Auto) 0.0 x10^3/uL (0.0-0.2) Sodium Level 142 mmol/L (136-145) Potassium Level 4.1 mmol/L (3.5-5.1) Chloride Level 108 mmol/L (98-107) Carbon Dioxide Level 23 mmol/L (21-32) Anion Gap 11 (6-14) Blood Urea Nitrogen 37 mg/dL (8-26) Creatinine 5.7 mg/dL (0.7-1.3) Estimated GFR (Cockcroft-Gault) 10.9 Glucose Level 183 mg/dL (70-99) Calcium Level 7.8 mg/dL (8.5-10.1) Magnesium Level 1.8 mg/dL (1.8-2.4) Total Bilirubin 0.6 mg/dL (0.2-1.0) Direct Bilirubin 0.4 mg/dL (0.0-0.2) Aspartate Amino Transf (AST/SGOT) 31 U/L (15-37) Alanine Aminotransferase (ALT/SGPT) 25 U/L (16-63) Alkaline Phosphatase 66 U/L (46-116) Total Protein 5.9 g/dL (6.4-8.2) Albumin 1.6 g/dL (3.4-5.0) Lipase 482 U/L (73-393) O2 Saturation 94 % (92-99) Arterial Blood pH 7.24 (7.35-7.45) Arterial Blood pCO2 at Patient Temp 47 mmHg (35-46) Arterial Blood pO2 at Patient Temp 66 mmHg (75-108) Arterial Blood HCO3 20 mmol/L (21-28) Arterial Blood Base Excess -8 mmol/L (-3-3) FiO2 50 Results All relevant outside records, renal labs, imaging studies, telemetry/EKG's were reviewed. NERISSA BURR MD Jan 14, 2018 09:16
[2018-01-14] MEDS: DOXYCYCLINE HYCLATE 100 MG in IV DEXTROSE 5% 100ML 100 ML IV SCH ×2 (09:21→21:04)
[2018-01-14 09:58] LABS: PHOSPHORUS 4.6 mg/dL (2.6-4.7)
--- NOTE | 2018-01-14 10:14 | PDOC2 ---
GI CONSULT Reason For Consult: Pancreatitis, colitis, hepatic steatosis HPI: HPI: 42 y/o male currently intubated and sedated in ICU. History from chart and staff. Evaluated in ER on 01/11 for hallucinations. Per documentation, his father reports that he had been drinking 1-2 "fifths" of whiskey daily x 2 weeks. He was admitted, had issues w/ ongoing agitation/aggression/ hallucinations, and was later intubated for airway protection. Has had fevers, also abnormal chest imaging/possible heart failure/pneumonia. Notable labs include lipase 2127 (now 482), normal LFTS (Except direct bili 0.4) , trigs 1547, BNP 2253, lactic 3.1 (now normal), CK 600, Cr 5.7, Ca 7.8, Hgb 10.8 (initially 11.9), initial glucose 416. On CT A/P yesterday: evidence of pancreatitis, prominent colonic wall thickening of the ascending colon and hepatic flexure and questionably minimally of the descending colon, diffuse hepatic steatosis and hepatomegaly, bilateral lower lobe infiltrates. Per chart, GI history includes GERD. Last BM on 01/11. Summary list includes lansoprazole and ibuprofen. PMH: PMH: per chart - HTN, ascending aortic aneurysm, anxiety, depression, chronic back pain, HLD, urinary incontinence, nephrolithiasis, epidural abscess, bilateral knee surgeries, back surgeries, neck surgery FH: Family History: Other (unable to obtain) Social History: ALCOHOL: heavy Drugs: Marijuana ROS: Unable to obtain. Vitals: Vitals: Vital Signs Date Time Temp Pulse Resp B/P (MAP) Pulse Ox O2 Delivery O2 Flow Rate FiO2 01/14/18 09:00 92 26 149/87 (107) 92 Ventilator 01/14/18 07:00 99.8 99.8 Labs: Labs: Laboratory Tests Test 01/13/18 12:38 01/13/18 18:27 01/13/18 23:58 01/14/18 05:40 Glucose (Fingerstick) 235 mg/dL (70-99) 255 mg/dL (70-99) 235 mg/dL (70-99) 130 mg/dL (70-99) Test 01/14/18 06:00 01/14/18 07:45 White Blood Count 7.2 x10^3/uL (4.0-11.0) Red Blood Count 3.28 x10^6/uL (4.30-5.70) Hemoglobin 10.8 g/dL (13.0-17.5) Hematocrit 32.6 % (39.0-53.0) Mean Corpuscular Volume 100 fL (79-100) Mean Corpuscular Hemoglobin 33 pg (25-35) Mean Corpuscular Hemoglobin Concent 33 g/dL (31-37) Red Cell Distribution Width 14.3 % (11.5-14.5) Platelet Count 187 x10^3/uL (140-400) Neutrophils (%) (Auto) 79 % (31-73) Lymphocytes (%) (Auto) 9 % (24-48) Monocytes (%) (Auto) 7 % (0-9) Eosinophils (%) (Auto) 5 % (0-3) Basophils (%) (Auto) 0 % (0-3) Neutrophils # (Auto) 5.7 x10^3uL (1.8-7.7) Lymphocytes # (Auto) 0.6 x10^3/uL (1.0-4.8) Monocytes # (Auto) 0.5 x10^3/uL (0.0-1.1) Eosinophils # (Auto) 0.3 x10^3/uL (0.0-0.7) Basophils # (Auto) 0.0 x10^3/uL (0.0-0.2) Sodium Level 142 mmol/L (136-145) Potassium Level 4.1 mmol/L (3.5-5.1) Chloride Level 108 mmol/L (98-107) Carbon Dioxide Level 23 mmol/L (21-32) Anion Gap 11 (6-14) Blood Urea Nitrogen 37 mg/dL (8-26) Creatinine 5.7 mg/dL (0.7-1.3) Estimated GFR (Cockcroft-Gault) 10.9 Glucose Level 183 mg/dL (70-99) Calcium Level 7.8 mg/dL (8.5-10.1) Magnesium Level 1.8 mg/dL (1.8-2.4) Total Bilirubin 0.6 mg/dL (0.2-1.0) Direct Bilirubin 0.4 mg/dL (0.0-0.2) Aspartate Amino Transf (AST/SGOT) 31 U/L (15-37) Alanine Aminotransferase (ALT/SGPT) 25 U/L (16-63) Alkaline Phosphatase 66 U/L (46-116) Total Protein 5.9 g/dL (6.4-8.2) Albumin 1.6 g/dL (3.4-5.0) Lipase 482 U/L (73-393) O2 Saturation 94 % (92-99) Arterial Blood pH 7.24 (7.35-7.45) Arterial Blood pCO2 at Patient Temp 47 mmHg (35-46) Arterial Blood pO2 at Patient Temp 66 mmHg (75-108) Arterial Blood HCO3 20 mmol/L (21-28) Arterial Blood Base Excess -8 mmol/L (-3-3) FiO2 50 GRAM STAIN WHITE BLOOD CELLS Final Moderate GRAM STAIN EPITHELIAL CELLS Final Few GRAM STAIN RESULT 1 Final Comment Few gram positive cocci in pairs GRAM STAIN EVALUATION Final Comment This specimen is of good quality and is acceptable for routine bacterial culture. Performed at: [facility], [place], [place] [id number] [employer] Superintendent: MARC Rocha MD, Phone: [phone] SPUTUM CULTURE-LC PENDING BLOOD CULTURE Preliminary NO GROWTH AFTER 2 DAYS Allergies: Coded Allergies: No Known Drug Allergies (Unverified , 09/21/15) Medications: Current Medications Medications (Trade) Dose Ordered Sig/Yamile Route PRN Reason Start Time Stop Time Status Last Admin Dose Admin Piperacillin Sod/ Tazobactam Sod 2.25 gm/Sodium Chloride 50 ml @ 100 mls/hr Q8HRS IV 01/13/18 14:00 01/14/18 05:43 Sodium Chloride 1,000 ml @ 1,000 mls/hr 1X ONCE IV 01/13/18 12:15 01/13/18 13:14 DC 01/13/18 12:15 Vecuronium [place] (Norcuron Bolus) 6 mg PRN Q6HRS PRN IV VENT ASYNCHRONY 01/13/18 12:30 01/14/18 05:26 Imaging: Imaging: Head CT 01/11 IMPRESSION: No acute intracranial abnormality. CXR 01/13 IMPRESSION: 1. ET tube, feeding tube in place. Right-sided internal jugular line in place. 2. Mild congestive changes. Patchy bibasilar lung airspace opacity likely atelectasis or infiltrates similar to prior exam. Echocardiogram 01/13 <Conclusion> The left ventricular systolic function is normal and the ejection fraction is within normal range. The Ejection Fraction is 60-65%. There is normal LV segmental wall motion. The ascending aorta is DILATED at 4.2 cm (Correlate with BSA) CT A/P 01/13 Impression: 1. There is evidence of pancreatitis, diffuse inflammatory change associated with the enlarged pancreas. 2. There is prominent colonic wall thickening of the ascending colon and hepatic flexure and questionably minimally of the descending colon, evidence of colitis. There is minimal nonspecific free fluid more eccentric to the right abdomen. 3. There is diffuse hepatic steatosis and hepatomegaly. 4. There are infiltrates of the lower lobes bilaterally at the lung bases and also the visualized posterior aspect of the right upper lobe. There is very minimal left pleural effusion. 5. There is a small nonobstructive left renal calculus. CXR 01/14 pending PE: GEN: intubated HEENT: Atraumatic, OG w/ bilious output LUNGS: vent HEART: RRR ABD: large/obese/round, quiet EXTREMITY/SKIN: SCDs NEURO/PSYCH: sedated - eyes flutter open A/P: A/P: Hallucination/agitation Resp failure, DENISHA, hyperglycemia, hypertriglyceridemia, fever, lactic acidosis H/o heavy alcohol use Pancreatitis, hepatic steatosis Abnormal colon on CT - prominent colonic wall thickening of the ascending colon and hepatic flexure and questionably minimally of the descending colon Presumed h/o GERD - seems on PPI at home, IV H2 harjit here -- Pancreatitis likely from alcohol, though also has significant elevated triglycerides. "Colitis" possibly secondary to pancreatitis, possible ischemia, or combination. Continue supportive care from GI-standpoint. MARILYN VASQUEZ Jan 14, 2018 10:14
[2018-01-14] MEDS ORDERED: SODIUM BICARB ADULT 8.4% 50 MEQ/50 ML DISP.SYRIN. ONE (11:12)
--- NOTE | 2018-01-14 11:17 | PDOC ---
PULMONARY PROGRESS NOTES Subjective remains on AC mode needs a lot of sedatives to control agitation increase lipase c/w pancreatitis worsening renal function Vitals Vital Signs Date Time Temp Pulse Resp B/P (MAP) Pulse Ox O2 Delivery O2 Flow Rate FiO2 01/14/18 10:02 96 Ventilator 01/14/18 09:00 92 26 149/87 (107) 01/14/18 07:00 99.8 99.8 Lungs: Other (decrease bs) Cardiovascular: S1 Abdomen: Soft Extremities: Other (1+edema) Skin: Warm Labs Laboratory Tests Test 01/12/18 11:13 01/12/18 17:23 01/13/18 00:37 01/13/18 06:10 Glucose (Fingerstick) 191 mg/dL (70-99) 223 mg/dL (70-99) 189 mg/dL (70-99) White Blood Count 6.5 x10^3/uL (4.0-11.0) Red Blood Count 3.64 x10^6/uL (4.30-5.70) Hemoglobin 12.1 g/dL (13.0-17.5) Hematocrit 35.7 % (39.0-53.0) Mean Corpuscular Volume 98 fL (79-100) Mean Corpuscular Hemoglobin 33 pg (25-35) Mean Corpuscular Hemoglobin Concent 34 g/dL (31-37) Red Cell Distribution Width 14.1 % (11.5-14.5) Platelet Count 216 x10^3/uL (140-400) Neutrophils (%) (Auto) 80 % (31-73) Lymphocytes (%) (Auto) 11 % (24-48) Monocytes (%) (Auto) 7 % (0-9) Eosinophils (%) (Auto) 2 % (0-3) Basophils (%) (Auto) 0 % (0-3) Neutrophils # (Auto) 5.2 x10^3uL (1.8-7.7) Lymphocytes # (Auto) 0.7 x10^3/uL (1.0-4.8) Monocytes # (Auto) 0.4 x10^3/uL (0.0-1.1) Eosinophils # (Auto) 0.1 x10^3/uL (0.0-0.7) Basophils # (Auto) 0.0 x10^3/uL (0.0-0.2) Sodium Level 140 mmol/L (136-145) Potassium Level 4.8 mmol/L (3.5-5.1) Chloride Level 106 mmol/L (98-107) Carbon Dioxide Level 21 mmol/L (21-32) Anion Gap 13 (6-14) Blood Urea Nitrogen 25 mg/dL (8-26) Creatinine 4.4 mg/dL (0.7-1.3) Estimated GFR (Cockcroft-Gault) 14.8 Glucose Level 232 mg/dL (70-99) Calcium Level 7.9 mg/dL (8.5-10.1) Creatine Kinase 600 U/L (39-308) Test 01/13/18 06:44 01/13/18 07:25 01/13/18 08:30 01/13/18 12:38 Glucose (Fingerstick) 207 mg/dL (70-99) 235 mg/dL (70-99) O2 Saturation 95 % (92-99) Arterial Blood pH 7.28 (7.35-7.45) Arterial Blood pH (Temp corrected) 7.26 Arterial Blood pCO2 at Patient Temp 41 mmHg (35-46) Arterial Blood pCO2 (Temp correct) 44 mmHg Arterial Blood pO2 at Patient Temp 74 mmHg (75-108) Arterial Blood pO2 (Temp corrected) 80 mmHg Arterial Blood HCO3 19 mmol/L (21-28) Arterial Blood Base Excess -7 mmol/L (-3-3) Group A Streptococcus Rapid Negative (NEGATIVE) Test 01/13/18 18:27 01/13/18 23:58 01/14/18 05:40 01/14/18 06:00 Glucose (Fingerstick) 255 mg/dL (70-99) 235 mg/dL (70-99) 130 mg/dL (70-99) White Blood Count 7.2 x10^3/uL (4.0-11.0) Red Blood Count 3.28 x10^6/uL (4.30-5.70) Hemoglobin 10.8 g/dL (13.0-17.5) Hematocrit 32.6 % (39.0-53.0) Mean Corpuscular Volume 100 fL (79-100) Mean Corpuscular Hemoglobin 33 pg (25-35) Mean Corpuscular Hemoglobin Concent 33 g/dL (31-37) Red Cell Distribution Width 14.3 % (11.5-14.5) Platelet Count 187 x10^3/uL (140-400) Neutrophils (%) (Auto) 79 % (31-73) Lymphocytes (%) (Auto) 9 % (24-48) Monocytes (%) (Auto) 7 % (0-9) Eosinophils (%) (Auto) 5 % (0-3) Basophils (%) (Auto) 0 % (0-3) Neutrophils # (Auto) 5.7 x10^3uL (1.8-7.7) Lymphocytes # (Auto) 0.6 x10^3/uL (1.0-4.8) Monocytes # (Auto) 0.5 x10^3/uL (0.0-1.1) Eosinophils # (Auto) 0.3 x10^3/uL (0.0-0.7) Basophils # (Auto) 0.0 x10^3/uL (0.0-0.2) Sodium Level 142 mmol/L (136-145) Potassium Level 4.1 mmol/L (3.5-5.1) Chloride Level 108 mmol/L (98-107) Carbon Dioxide Level 23 mmol/L (21-32) Anion Gap 11 (6-14) Blood Urea Nitrogen 37 mg/dL (8-26) Creatinine 5.7 mg/dL (0.7-1.3) Estimated GFR (Cockcroft-Gault) 10.9 Glucose Level 183 mg/dL (70-99) Calcium Level 7.8 mg/dL (8.5-10.1) Phosphorus Level 4.6 mg/dL (2.6-4.7) Magnesium Level 1.8 mg/dL (1.8-2.4) Total Bilirubin 0.6 mg/dL (0.2-1.0) Direct Bilirubin 0.4 mg/dL (0.0-0.2) Aspartate Amino Transf (AST/SGOT) 31 U/L (15-37) Alanine Aminotransferase (ALT/SGPT) 25 U/L (16-63) Alkaline Phosphatase 66 U/L (46-116) Total Protein 5.9 g/dL (6.4-8.2) Albumin 1.6 g/dL (3.4-5.0) Triglycerides Level 891 mg/dL (0-150) Lipase 482 U/L (73-393) Test 01/14/18 07:45 O2 Saturation 94 % (92-99) Arterial Blood pH 7.24 (7.35-7.45) Arterial Blood pCO2 at Patient Temp 47 mmHg (35-46) Arterial Blood pO2 at Patient Temp 66 mmHg (75-108) Arterial Blood HCO3 20 mmol/L (21-28) Arterial Blood Base Excess -8 mmol/L (-3-3) FiO2 50 Laboratory Tests Test 01/13/18 12:38 01/13/18 18:27 01/13/18 23:58 01/14/18 05:40 Glucose (Fingerstick) 235 mg/dL (70-99) 255 mg/dL (70-99) 235 mg/dL (70-99) 130 mg/dL (70-99) Test 01/14/18 06:00 01/14/18 07:45 White Blood Count 7.2 x10^3/uL (4.0-11.0) Red Blood Count 3.28 x10^6/uL (4.30-5.70) Hemoglobin 10.8 g/dL (13.0-17.5) Hematocrit 32.6 % (39.0-53.0) Mean Corpuscular Volume 100 fL (79-100) Mean Corpuscular Hemoglobin 33 pg (25-35) Mean Corpuscular Hemoglobin Concent 33 g/dL (31-37) Red Cell Distribution Width 14.3 % (11.5-14.5) Platelet Count 187 x10^3/uL (140-400) Neutrophils (%) (Auto) 79 % (31-73) Lymphocytes (%) (Auto) 9 % (24-48) Monocytes (%) (Auto) 7 % (0-9) Eosinophils (%) (Auto) 5 % (0-3) Basophils (%) (Auto) 0 % (0-3) Neutrophils # (Auto) 5.7 x10^3uL (1.8-7.7) Lymphocytes # (Auto) 0.6 x10^3/uL (1.0-4.8) Monocytes # (Auto) 0.5 x10^3/uL (0.0-1.1) Eosinophils # (Auto) 0.3 x10^3/uL (0.0-0.7) Basophils # (Auto) 0.0 x10^3/uL (0.0-0.2) Sodium Level 142 mmol/L (136-145) Potassium Level 4.1 mmol/L (3.5-5.1) Chloride Level 108 mmol/L (98-107) Carbon Dioxide Level 23 mmol/L (21-32) Anion Gap 11 (6-14) Blood Urea Nitrogen 37 mg/dL (8-26) Creatinine 5.7 mg/dL (0.7-1.3) Estimated GFR (Cockcroft-Gault) 10.9 Glucose Level 183 mg/dL (70-99) Calcium Level 7.8 mg/dL (8.5-10.1) Phosphorus Level 4.6 mg/dL (2.6-4.7) Magnesium Level 1.8 mg/dL (1.8-2.4) Total Bilirubin 0.6 mg/dL (0.2-1.0) Direct Bilirubin 0.4 mg/dL (0.0-0.2) Aspartate Amino Transf (AST/SGOT) 31 U/L (15-37) Alanine Aminotransferase (ALT/SGPT) 25 U/L (16-63) Alkaline Phosphatase 66 U/L (46-116) Total Protein 5.9 g/dL (6.4-8.2) Albumin 1.6 g/dL (3.4-5.0) Triglycerides Level 891 mg/dL (0-150) Lipase 482 U/L (73-393) O2 Saturation 94 % (92-99) Arterial Blood pH 7.24 (7.35-7.45) Arterial Blood pCO2 at Patient Temp 47 mmHg (35-46) Arterial Blood pO2 at Patient Temp 66 mmHg (75-108) Arterial Blood HCO3 20 mmol/L (21-28) Arterial Blood Base Excess -8 mmol/L (-3-3) FiO2 50 Medications Active Scripts Medications Dose Route/Sig Max Daily Dose Days Date Category [hemp botanicals] 01/12/18 Reported Maxitrol Eye Drops (Brandon/Polymyx B Sulf/Dexameth) 5 Ml Drops.susp 1 Drop OD QID 01/12/18 Reported Multivitamins (Multivitamin) 1 Each Tablet 1 Tab PO DAILY 01/12/18 Reported Magnesium (Magnesium Oxide) 400 Mg Capsule 1 Cap PO DAILY 01/12/18 Reported Calcium (Calcium Carbonate) 500 Mg Tab.chew 500 Mg PO 01/12/18 Reported Lansoprazole 30 Mg Capsule.dr 1 Cap PO DAILY 01/12/18 Reported Losartan Potassium 25 Mg Tablet 25 Mg PO DAILY 01/12/18 Reported Tizanidine Hcl 4 Mg Tablet 1 Tab PO TID 01/12/18 Reported Tramadol Hcl 50 Mg Tablet 50 Mg PO DAILY PRN 01/12/18 Reported Bystolic (Nebivolol Hcl) 20 Mg Tablet 20 Mg PO DAILY 01/12/18 Reported Cymbalta (Duloxetine Hcl) 20 Mg Capsule.dr 1 Cap PO DAILY 01/12/18 Reported Valacyclovir (Valacyclovir Hcl) 1,000 Mg Tablet 1 Tab PO DAILY 01/12/18 Reported Ibuprofen 400 Mg Tablet 400 Mg PO PRN Q6HRS PRN 09/21/15 Reported Bystolic (Nebivolol) 10 Mg Tablet 20 Mg PO DAILY 09/21/15 Reported Amlodipine Besylate 10 Mg Tablet 10 Mg PO DAILY 09/21/15 Reported Comments CXR 01/14 REVIEWED NO SIG CHANGE Impression . 1. Acute respiratory failure./ multi-factorial 2. Abnormal chest x-ray/ poor insp effort, basal atelectasis 3. Sepsis . source pancreatitis 4. Severe agitation, could be secondary to alcohol withdrawal versus sepsis 5. Markedly increase lipase c/w alcoholic pancreatitis 6. No obvious CHF/ normal EF 7. History of alcohol abuse. Level neg. Positive for [place] 8. Obesity? obstructive sleep apnea-hypopnea syndrome. 9. DENISHA,, worse 10. Combined met/resp acidosis Plan . 1. Titrate FiO2 to keep O2 saturation 94%.AC mode. not ready for weaning 2. change vent setting per ABG./ add bicarb 3. bronchodilator. 4. Aggressive fluid bolus. 5. ID rec 6. Renal consult/ May need HD 7. Pepcid for stress ulcer prophylaxis. 8. Lovenox 9. follow amylase/ lipase 10. Control blood sugar. 13. The findings and recommendations were discussed with RN./ father in detail / prognosis explained. AJ FINK MD Jan 14, 2018 11:17
[2018-01-14] MEDS ORDERED: SODIUM BICARB ADULT 8.4% 50 MEQ/50 ML DISP.SYRIN. IV ONE (11:30)
[2018-01-14] MEDS: LABETALOL 20 MG/4 ML DISP.SYRIN. IVP PRN (11:33)
--- NOTE | 2018-01-14 12:43 | PDOC ---
CARDIO Progress Notes Date and Time Date of Service 01/14/2018 Time of Evaluation 1230 Subjective Subjective: Other (intubated/sedated) Vitals Vitals Vital Signs Date Time Temp Pulse Resp B/P (MAP) Pulse Ox O2 Delivery O2 Flow Rate FiO2 01/14/18 11:52 91 Ventilator 01/14/18 11:33 125 187/94 01/14/18 09:00 26 01/14/18 07:00 99.8 99.8 Weight Weight [ ] Input and Output Intake and Output Intake and Output 01/14/18 07:00 Intake Total 5299 ml Output Total 589 ml Balance 4710 ml IV Total 5299 ml Output Urine Total 589 ml Laboratory Labs Laboratory Tests Test 01/13/18 18:27 01/13/18 23:58 01/14/18 05:40 01/14/18 06:00 Glucose (Fingerstick) 255 mg/dL (70-99) 235 mg/dL (70-99) 130 mg/dL (70-99) White Blood Count 7.2 x10^3/uL (4.0-11.0) Red Blood Count 3.28 x10^6/uL (4.30-5.70) Hemoglobin 10.8 g/dL (13.0-17.5) Hematocrit 32.6 % (39.0-53.0) Mean Corpuscular Volume 100 fL (79-100) Mean Corpuscular Hemoglobin 33 pg (25-35) Mean Corpuscular Hemoglobin Concent 33 g/dL (31-37) Red Cell Distribution Width 14.3 % (11.5-14.5) Platelet Count 187 x10^3/uL (140-400) Neutrophils (%) (Auto) 79 % (31-73) Lymphocytes (%) (Auto) 9 % (24-48) Monocytes (%) (Auto) 7 % (0-9) Eosinophils (%) (Auto) 5 % (0-3) Basophils (%) (Auto) 0 % (0-3) Neutrophils # (Auto) 5.7 x10^3uL (1.8-7.7) Lymphocytes # (Auto) 0.6 x10^3/uL (1.0-4.8) Monocytes # (Auto) 0.5 x10^3/uL (0.0-1.1) Eosinophils # (Auto) 0.3 x10^3/uL (0.0-0.7) Basophils # (Auto) 0.0 x10^3/uL (0.0-0.2) Sodium Level 142 mmol/L (136-145) Potassium Level 4.1 mmol/L (3.5-5.1) Chloride Level 108 mmol/L (98-107) Carbon Dioxide Level 23 mmol/L (21-32) Anion Gap 11 (6-14) Blood Urea Nitrogen 37 mg/dL (8-26) Creatinine 5.7 mg/dL (0.7-1.3) Estimated GFR (Cockcroft-Gault) 10.9 Glucose Level 183 mg/dL (70-99) Calcium Level 7.8 mg/dL (8.5-10.1) Phosphorus Level 4.6 mg/dL (2.6-4.7) Magnesium Level 1.8 mg/dL (1.8-2.4) Total Bilirubin 0.6 mg/dL (0.2-1.0) Direct Bilirubin 0.4 mg/dL (0.0-0.2) Aspartate Amino Transf (AST/SGOT) 31 U/L (15-37) Alanine Aminotransferase (ALT/SGPT) 25 U/L (16-63) Alkaline Phosphatase 66 U/L (46-116) Total Protein 5.9 g/dL (6.4-8.2) Albumin 1.6 g/dL (3.4-5.0) Triglycerides Level 891 mg/dL (0-150) Lipase 482 U/L (73-393) Test 01/14/18 07:45 O2 Saturation 94 % (92-99) Arterial Blood pH 7.24 (7.35-7.45) Arterial Blood pCO2 at Patient Temp 47 mmHg (35-46) Arterial Blood pO2 at Patient Temp 66 mmHg (75-108) Arterial Blood HCO3 20 mmol/L (21-28) Arterial Blood Base Excess -8 mmol/L (-3-3) FiO2 50 Microbiology Micro Microbiology 01/11/18 Blood Culture - Preliminary, Resulted NO GROWTH AFTER 2 DAYS 01/12/18 - Final, Resulted 01/12/18 - Final, Resulted 01/12/18 - Final, Resulted 01/12/18 Gram Stain Evaluation - Final, Resulted 01/12/18 Sputum Culture, Resulted Pending Physical Exam HEENT: Neck Supple W Full Motion, Other (intubated) Chest: Symmetric LUNGS: Other (mechanical ventilation) Heart: RRR (Sinus tach) Abdomen: Other (obese) Extremities: No Edema Neurology: other (sedated) Assessment Assessment 1. Acute respiratory failure: remains intubated/vent. pulmonary following 2. Metabolic encephalopathy. prior Auditory and visual hallucinations likely from ETOH withdrawal. . 3. Alcohol abuse: reported heavy ingestion per aunt 4. Sepsis with associated acute pancreatitis: GI following 5. Acute diastolic CHF: superimposed. EF and WM nml. 6. Elevated troponin; Highest 0.110. Most probably type II, demand ischemia. 7. Hyperglycemia, POA. As per PCP 8. Hypertriglyceridemia; 1547 9. Ascending aortic aneurysm; 4.2 cm per echo. 10. BERTHA, hypoventilation syndrome. 11. DENISHA: worse, nephrology following 12. Substance abuse; + marijuana 13. Reactive sinus tach: no significant ectopies. BP stable. 14. HTN Recommendations 1. Labetolol PRN 2. Multiple consultants. ETOH withdrawal protocol per PCP 3. Nothing further at this time cardiac cortez. Supportive care. MAYNOR LUCAS ENVIRONMENTAL ENGINEER Jan 14, 2018 12:42
[2018-01-14] MEDS: TPN PER PHARMACY MC PRN ×2 (13:52→13:59)
--- NOTE | 2018-01-14 15:18 | RAD ---
Portable chest x-ray compared to similar examination dated January 13, 2018 for respiratory failure. FINDINGS: The endotracheal tube, right IJ central line, and enteric tubes are all grossly unchanged. There is redemonstration of bilateral pulmonary edema with bilateral pleural effusions, also grossly unchanged. No new lung parenchymal abnormalities. IMPRESSION: 1. Stable chest x-ray with evidence of congestive heart failure. Electronically signed by: Salas Jones MD (01/14/2018 3:15 PM) [id number]
--- NOTE | 2018-01-14 16:07 | RAD ---
Examination: Ultrasound abdomen limited HISTORY: History of pancreatitis, hepatic steatosis COMPARISON: None available FINDINGS: The liver measures 23.9 cm. The common bile duct measures 5.1 mm in diameter. There is increased echogenicity noted throughout the liver likely hepatic steatosis. Partially visualized small amount of perihepatic fluid. The pancreas is not well-visualized due to bowel gas. The IVC, aorta are not well-visualized due to bowel gas. The right kidney measures 15.5 cm in length. No evidence of gallstones. The gallbladder wall thickness measures 2.3 mm. IMPRESSION: 1. Hepatic steatosis. Hepatomegaly. 2. Examination is limited due to patient body habitus and due to bowel gas. Electronically signed by: Shyam Keating MD (01/14/2018 4:04 PM) [id number]
[2018-01-14] MEDS ORDERED: TOTAL PARENTERAL NUTRITION IV SCH ×13 (22:00)
[2018-01-14] MEDS ORDERED: AMINO ACIDS IV SCH ×13 (22:00)
[2018-01-14] MEDS ORDERED: DEXTROSE 70% IV SCH ×13 (22:00)
[2018-01-14] MEDS ORDERED: [UNRECOGNIZED DRUG - OTHER] IV SCH ×13 (22:00)
[2018-01-15] VITALS (24 sets, daily range): BP systolic 100–201; BP diastolic 65–114
[2018-01-15] MEDS: DEXMEDETOMIDINE 200 MCG in IV NORMAL SALINE 50ML 48 ML IV PRN ×12 (02:01→22:07)
[2018-01-15] MEDS: HALOPERIDOL LACTATE 5 MG/ML VIAL. IVP PRN ×2 (03:51→10:01)
[2018-01-15] MEDS: MIDAZOLAM 100mg/100ml NS BAG 100 ML IV PRN ×3 (04:31→19:20)
[2018-01-15] MEDS: IV NORMAL SALINE 1000ML BAG 1,000 ML IV SCH ×3 (04:34→15:00)
[2018-01-15] MEDS: PIPERACILLIN/TAZOBACTAM 2.25 GM in IV NORMAL SALINE 50ML 50 ML IV SCH ×3 (05:42→22:06)
[2018-01-15] MEDS: HEPARIN for SUB-Q USE 5,000 UNIT/ML VIAL. SQ SCH ×3 (05:43→22:11)
[2018-01-15] MEDS: INSULIN LISPRO 300 UNITS/3 ML INSULN.PEN. SQ SCH ×3 (05:44→17:52)
[2018-01-15 06:02] LABS: BASO % 0 % (0-3); EOS # 0.3 x10^3/uL (0.0-0.7); EOS % 5 % (0-3); HEMATOCRIT 30.1 % (39.0-53.0); LYMPH # 0.5 x10^3/uL (1.0-4.8); LYMPH % 9 % (24-48); MEAN CORPUSCULAR HEMOGLOBIN 33 pg (25-35); MEAN CORPUSCULAR HGB CONC 33 g/dL (31-37); MEAN CORPUSCULAR VOLUME 99 fL (79-100); MONO # 0.6 x10^3/uL (0.0-1.1); MONO % 10 % (0-9); NEUT # 4.8 x10^3uL (1.8-7.7); NEUT % 76 % (31-73); PLATELET COUNT 172 x10^3/uL (140-400); RED BLOOD COUNT 3.03 x10^6/uL (4.30-5.70); RED CELL DISTRIBUTION WIDTH 14.4 % (11.5-14.5); WHITE BLOOD COUNT 6.3 x10^3/uL (4.0-11.0)
[2018-01-15 06:12] LABS: ALBUMIN 1.5 g/dL (3.4-5.0); ALBUMIN/GLOBULIN RATIO 0.3 (1.0-1.7); CALCIUM 7.5 mg/dL (8.5-10.1); CREATININE 6.1 mg/dL (0.7-1.3); GFR 10.1; MAGNESIUM 1.6 mg/dL (1.8-2.4); PHOSPHORUS 3.9 mg/dL (2.6-4.7); POTASSIUM 3.8 mmol/L (3.5-5.1); TOTAL BILIRUBIN 0.7 mg/dL (0.2-1.0); TOTAL PROTEIN 5.9 g/dL (6.4-8.2)
--- NOTE | 2018-01-15 07:01 | PDOC ---
PROGRESS NOTES Chief Complaint Chief Complaint 1. Acute respiratory failure. 2. etoh intoxication versus dependence, not protecting airway hence intubated at the emergency room 2. LLL pneumonia. 3. Sepsis - LLL pneumonia 4. Severe agitation, could be secondary to alcohol withdrawal versus sepsis versus others. 5. Hyperglycemia, with HYPERTRIGLYCERIDEMIA 6. Elevated BNP and troponin elevation 7. History of alcohol abuse. 8. Obesity BMI 39 - poss obstructive sleep apnea-hypopnea syndrome. History of Present Illness History of Present Illness Admitted with hallucinations and combative, was intubated soon after admission. Ketonuria on UA Intubated sedated, father states this is likely polysubstance abuse withdrawal Overnight: No significant events, Creatinine over 6 this morning but making significant urine, Triglycerides are high 800s and lipase in 400s. Glucose over 200 after starting TPN. Tmax was 100.2F yesterday. With even small decrease in versed he becomes combative, difficult ABG this morning. No BM since 01/08, but has had nothing PO. Started TPN yesterday. A/P: 1. Acute respiratory failure - 22/550/50% peep 7, appears to be developing PNA in LL on CXR, on zyvox 2. etoh intoxication versus dependence, not protecting airway hence intubated at the emergency room - no fevers for 2 days, could consider wean if he would comply with sedation reduction 2. LLL pneumonia - changed to zyvox 3. Sepsis - LLL pneumonia - cont fluids 4. Acute renal failure - Cr 1.4-->6 - likely from sepsis, hypotension, AIN? Nephrology following, may need HD in the near future, but making urine 5. Severe agitation, could be secondary to alcohol withdrawal versus sepsis versus others. Did paralyze 01/13/18 overnight, opens eyes with any weaning 6. Hyperglycemia, with HYPERTRIGLYCERIDEMIA - insulin GTT. TPN with his his elevated lipase 7. Elevated BNP and troponin elevation - likely from sepsis - cardiology seeing 8. History of alcohol abuse - on precedex, versed, fentanyl for likely withdrawal 8. Obesity BMI 39 - poss obstructive sleep apnea-hypopnea syndrome. Heparin SQ Already on PPI IV nutrition consult for tube feeds-->TPN today We will need alcohol rehabilitation referrals once extubated Supportive care Further conditions pending course. Met with his father, he is acutely worsening Vitals Vitals Vital Signs Date Time Temp Pulse Resp B/P (MAP) Pulse Ox O2 Delivery O2 Flow Rate FiO2 01/15/18 06:00 103 26 125/88 (100) 93 Ventilator 01/15/18 04:00 98.9 98.9 Physical Exam Physical Exam GENERAL: The patient is slightly propped up in bed, sedated and intubated. HEENT: Pupils small and equal. ETT and NGT in place. NECK: Supple/ No JVD LUNGS: Diminished aeration in the bases. HEART: Regular rhythm. ABDOMEN: Obese. Hypoactive bowel sounds, soft, no grimace or guarding to palpation. GENITOURINARY: Indwelling Cook in place. EXTREMITIES: No gross edema or cyanosis. SKIN: He has tattoos. Warm, Multiple small scabs on both legs. NEUROLOGIC: Unresponsive/sedated. RIJ - clean. PIV clean General: Other (sedated on a ventilator.) Heart: Regular rate Lungs: Other (decrease bs) Abdomen: Normal bowel sounds Extremities: No clubbing, No cyanosis, No edema, Normal pulses Skin: No rashes, No breakdown Labs LABS Laboratory Tests Test 01/14/18 07:45 01/14/18 17:15 01/14/18 23:32 01/15/18 05:30 O2 Saturation 94 % (92-99) Arterial Blood pH 7.24 (7.35-7.45) Arterial Blood pCO2 at Patient Temp 47 mmHg (35-46) Arterial Blood pO2 at Patient Temp 66 mmHg (75-108) Arterial Blood HCO3 20 mmol/L (21-28) Arterial Blood Base Excess -8 mmol/L (-3-3) FiO2 50 Glucose (Fingerstick) 188 mg/dL (70-99) 247 mg/dL (70-99) White Blood Count 6.3 x10^3/uL (4.0-11.0) Red Blood Count 3.03 x10^6/uL (4.30-5.70) Hemoglobin 10.0 g/dL (13.0-17.5) Hematocrit 30.1 % (39.0-53.0) Mean Corpuscular Volume 99 fL (79-100) Mean Corpuscular Hemoglobin 33 pg (25-35) Mean Corpuscular Hemoglobin Concent 33 g/dL (31-37) Red Cell Distribution Width 14.4 % (11.5-14.5) Platelet Count 172 x10^3/uL (140-400) Neutrophils (%) (Auto) 76 % (31-73) Lymphocytes (%) (Auto) 9 % (24-48) Monocytes (%) (Auto) 10 % (0-9) Eosinophils (%) (Auto) 5 % (0-3) Basophils (%) (Auto) 0 % (0-3) Neutrophils # (Auto) 4.8 x10^3uL (1.8-7.7) Lymphocytes # (Auto) 0.5 x10^3/uL (1.0-4.8) Monocytes # (Auto) 0.6 x10^3/uL (0.0-1.1) Eosinophils # (Auto) 0.3 x10^3/uL (0.0-0.7) Basophils # (Auto) 0.0 x10^3/uL (0.0-0.2) Sodium Level 147 mmol/L (136-145) Potassium Level 3.8 mmol/L (3.5-5.1) Chloride Level 110 mmol/L (98-107) Carbon Dioxide Level 24 mmol/L (21-32) Anion Gap 13 (6-14) Blood Urea Nitrogen 42 mg/dL (8-26) Creatinine 6.1 mg/dL (0.7-1.3) Estimated GFR (Cockcroft-Gault) 10.1 BUN/Creatinine Ratio 7 (6-20) Glucose Level 270 mg/dL (70-99) Calcium Level 7.5 mg/dL (8.5-10.1) Phosphorus Level 3.9 mg/dL (2.6-4.7) Magnesium Level 1.6 mg/dL (1.8-2.4) Total Bilirubin 0.7 mg/dL (0.2-1.0) Aspartate Amino Transf (AST/SGOT) 20 U/L (15-37) Alanine Aminotransferase (ALT/SGPT) 22 U/L (16-63) Alkaline Phosphatase 73 U/L (46-116) Total Protein 5.9 g/dL (6.4-8.2) Albumin 1.5 g/dL (3.4-5.0) Albumin/Globulin Ratio 0.3 (1.0-1.7) Lipase 459 U/L (73-393) Test 01/15/18 05:40 Glucose (Fingerstick) 261 mg/dL (70-99) Assessment and Plan Assessmemt and Plan Problems Medical Problems: (1) Diabetic keto-acidosis Status: Acute (2) Hyperglycemia due to type 2 diabetes mellitus Status: Acute (3) Metabolic acidemia Status: Acute (4) Metabolic encephalopathy Status: Acute Comment Review of Relevant I have reviewed the following items franklyn (where applicable) has been applied. Labs Laboratory Tests Test 01/13/18 07:25 01/13/18 08:30 01/13/18 12:38 01/13/18 18:27 O2 Saturation 95 % (92-99) Arterial Blood pH 7.28 (7.35-7.45) Arterial Blood pH (Temp corrected) 7.26 Arterial Blood pCO2 at Patient Temp 41 mmHg (35-46) Arterial Blood pCO2 (Temp correct) 44 mmHg Arterial Blood pO2 at Patient Temp 74 mmHg (75-108) Arterial Blood pO2 (Temp corrected) 80 mmHg Arterial Blood HCO3 19 mmol/L (21-28) Arterial Blood Base Excess -7 mmol/L (-3-3) Group A Streptococcus Rapid Negative (NEGATIVE) Glucose (Fingerstick) 235 mg/dL (70-99) 255 mg/dL (70-99) Test 01/13/18 23:58 01/14/18 05:40 01/14/18 06:00 01/14/18 07:45 Glucose (Fingerstick) 235 mg/dL (70-99) 130 mg/dL (70-99) White Blood Count 7.2 x10^3/uL (4.0-11.0) Red Blood Count 3.28 x10^6/uL (4.30-5.70) Hemoglobin 10.8 g/dL (13.0-17.5) Hematocrit 32.6 % (39.0-53.0) Mean Corpuscular Volume 100 fL (79-100) Mean Corpuscular Hemoglobin 33 pg (25-35) Mean Corpuscular Hemoglobin Concent 33 g/dL (31-37) Red Cell Distribution Width 14.3 % (11.5-14.5) Platelet Count 187 x10^3/uL (140-400) Neutrophils (%) (Auto) 79 % (31-73) Lymphocytes (%) (Auto) 9 % (24-48) Monocytes (%) (Auto) 7 % (0-9) Eosinophils (%) (Auto) 5 % (0-3) Basophils (%) (Auto) 0 % (0-3) Neutrophils # (Auto) 5.7 x10^3uL (1.8-7.7) Lymphocytes # (Auto) 0.6 x10^3/uL (1.0-4.8) Monocytes # (Auto) 0.5 x10^3/uL (0.0-1.1) Eosinophils # (Auto) 0.3 x10^3/uL (0.0-0.7) Basophils # (Auto) 0.0 x10^3/uL (0.0-0.2) Sodium Level 142 mmol/L (136-145) Potassium Level 4.1 mmol/L (3.5-5.1) Chloride Level 108 mmol/L (98-107) Carbon Dioxide Level 23 mmol/L (21-32) Anion Gap 11 (6-14) Blood Urea Nitrogen 37 mg/dL (8-26) Creatinine 5.7 mg/dL (0.7-1.3) Estimated GFR (Cockcroft-Gault) 10.9 Glucose Level 183 mg/dL (70-99) Calcium Level 7.8 mg/dL (8.5-10.1) Phosphorus Level 4.6 mg/dL (2.6-4.7) Magnesium Level 1.8 mg/dL (1.8-2.4) Total Bilirubin 0.6 mg/dL (0.2-1.0) Direct Bilirubin 0.4 mg/dL (0.0-0.2) Aspartate Amino Transf (AST/SGOT) 31 U/L (15-37) Alanine Aminotransferase (ALT/SGPT) 25 U/L (16-63) Alkaline Phosphatase 66 U/L (46-116) Total Protein 5.9 g/dL (6.4-8.2) Albumin 1.6 g/dL (3.4-5.0) Triglycerides Level 891 mg/dL (0-150) Lipase 482 U/L (73-393) O2 Saturation 94 % (92-99) Arterial Blood pH 7.24 (7.35-7.45) Arterial Blood pCO2 at Patient Temp 47 mmHg (35-46) Arterial Blood pO2 at Patient Temp 66 mmHg (75-108) Arterial Blood HCO3 20 mmol/L (21-28) Arterial Blood Base Excess -8 mmol/L (-3-3) FiO2 50 Test 01/14/18 17:15 01/14/18 23:32 01/15/18 05:30 01/15/18 05:40 Glucose (Fingerstick) 188 mg/dL (70-99) 247 mg/dL (70-99) 261 mg/dL (70-99) White Blood Count 6.3 x10^3/uL (4.0-11.0) Red Blood Count 3.03 x10^6/uL (4.30-5.70) Hemoglobin 10.0 g/dL (13.0-17.5) Hematocrit 30.1 % (39.0-53.0) Mean Corpuscular Volume 99 fL (79-100) Mean Corpuscular Hemoglobin 33 pg (25-35) Mean Corpuscular Hemoglobin Concent 33 g/dL (31-37) Red Cell Distribution Width 14.4 % (11.5-14.5) Platelet Count 172 x10^3/uL (140-400) Neutrophils (%) (Auto) 76 % (31-73) Lymphocytes (%) (Auto) 9 % (24-48) Monocytes (%) (Auto) 10 % (0-9) Eosinophils (%) (Auto) 5 % (0-3) Basophils (%) (Auto) 0 % (0-3) Neutrophils # (Auto) 4.8 x10^3uL (1.8-7.7) Lymphocytes # (Auto) 0.5 x10^3/uL (1.0-4.8) Monocytes # (Auto) 0.6 x10^3/uL (0.0-1.1) Eosinophils # (Auto) 0.3 x10^3/uL (0.0-0.7) Basophils # (Auto) 0.0 x10^3/uL (0.0-0.2) Sodium Level 147 mmol/L (136-145) Potassium Level 3.8 mmol/L (3.5-5.1) Chloride Level 110 mmol/L (98-107) Carbon Dioxide Level 24 mmol/L (21-32) Anion Gap 13 (6-14) Blood Urea Nitrogen 42 mg/dL (8-26) Creatinine 6.1 mg/dL (0.7-1.3) Estimated GFR (Cockcroft-Gault) 10.1 BUN/Creatinine Ratio 7 (6-20) Glucose Level 270 mg/dL (70-99) Calcium Level 7.5 mg/dL (8.5-10.1) Phosphorus Level 3.9 mg/dL (2.6-4.7) Magnesium Level 1.6 mg/dL (1.8-2.4) Total Bilirubin 0.7 mg/dL (0.2-1.0) Aspartate Amino Transf (AST/SGOT) 20 U/L (15-37) Alanine Aminotransferase (ALT/SGPT) 22 U/L (16-63) Alkaline Phosphatase 73 U/L (46-116) Total Protein 5.9 g/dL (6.4-8.2) Albumin 1.5 g/dL (3.4-5.0) Albumin/Globulin Ratio 0.3 (1.0-1.7) Lipase 459 U/L (73-393) Laboratory Tests Test 01/14/18 07:45 01/14/18 17:15 01/14/18 23:32 01/15/18 05:30 O2 Saturation 94 % (92-99) Arterial Blood pH 7.24 (7.35-7.45) Arterial Blood pCO2 at Patient Temp 47 mmHg (35-46) Arterial Blood pO2 at Patient Temp 66 mmHg (75-108) Arterial Blood HCO3 20 mmol/L (21-28) Arterial Blood Base Excess -8 mmol/L (-3-3) FiO2 50 Glucose (Fingerstick) 188 mg/dL (70-99) 247 mg/dL (70-99) White Blood Count 6.3 x10^3/uL (4.0-11.0) Red Blood Count 3.03 x10^6/uL (4.30-5.70) Hemoglobin 10.0 g/dL (13.0-17.5) Hematocrit 30.1 % (39.0-53.0) Mean Corpuscular Volume 99 fL (79-100) Mean Corpuscular Hemoglobin 33 pg (25-35) Mean Corpuscular Hemoglobin Concent 33 g/dL (31-37) Red Cell Distribution Width 14.4 % (11.5-14.5) Platelet Count 172 x10^3/uL (140-400) Neutrophils (%) (Auto) 76 % (31-73) Lymphocytes (%) (Auto) 9 % (24-48) Monocytes (%) (Auto) 10 % (0-9) Eosinophils (%) (Auto) 5 % (0-3) Basophils (%) (Auto) 0 % (0-3) Neutrophils # (Auto) 4.8 x10^3uL (1.8-7.7) Lymphocytes # (Auto) 0.5 x10^3/uL (1.0-4.8) Monocytes # (Auto) 0.6 x10^3/uL (0.0-1.1) Eosinophils # (Auto) 0.3 x10^3/uL (0.0-0.7) Basophils # (Auto) 0.0 x10^3/uL (0.0-0.2) Sodium Level 147 mmol/L (136-145) Potassium Level 3.8 mmol/L (3.5-5.1) Chloride Level 110 mmol/L (98-107) Carbon Dioxide Level 24 mmol/L (21-32) Anion Gap 13 (6-14) Blood Urea Nitrogen 42 mg/dL (8-26) Creatinine 6.1 mg/dL (0.7-1.3) Estimated GFR (Cockcroft-Gault) 10.1 BUN/Creatinine Ratio 7 (6-20) Glucose Level 270 mg/dL (70-99) Calcium Level 7.5 mg/dL (8.5-10.1) Phosphorus Level 3.9 mg/dL (2.6-4.7) Magnesium Level 1.6 mg/dL (1.8-2.4) Total Bilirubin 0.7 mg/dL (0.2-1.0) Aspartate Amino Transf (AST/SGOT) 20 U/L (15-37) Alanine Aminotransferase (ALT/SGPT) 22 U/L (16-63) Alkaline Phosphatase 73 U/L (46-116) Total Protein 5.9 g/dL (6.4-8.2) Albumin 1.5 g/dL (3.4-5.0) Albumin/Globulin Ratio 0.3 (1.0-1.7) Lipase 459 U/L (73-393) Test 01/15/18 05:40 Glucose (Fingerstick) 261 mg/dL (70-99) Microbiology 01/11/18 Blood Culture - Preliminary, Resulted NO GROWTH AFTER 3 DAYS 01/12/18 - Final, Resulted 01/12/18 - Final, Resulted 01/12/18 - Final, Resulted 01/12/18 Gram Stain Evaluation - Final, Resulted 01/12/18 Sputum Culture - Preliminary, Resulted 01/12/18 Sputum Result 1 - Final, Resulted Medications Current Medications Lorazepam (Ativan) 1 mg 1X ONCE IV Last administered on 01/11/18at 12:25; Start 01/11/18 at 12:30; Stop 01/11/18 at 12:31; Status DC Lorazepam (Ativan) 2 mg 1X ONCE IV Last administered on 01/11/18at 13:03; Start 01/11/18 at 12:45; Stop 01/11/18 at 12:46; Status DC Dextrose/Sodium Chloride 1,000 ml @ 0 mls/hr 1X ONCE IV ; Start 01/11/18 at 13:00; Stop 01/11/18 at 13:16; Status DC Sodium Chloride 1,000 ml @ 1,000 mls/hr 1X ONCE IV Last administered on 01/11at 13:41; Start 01/11/18 at 13:30; Stop 01/11/18 at 14:29; Status DC Sodium Chloride 1,000 ml @ 1,000 mls/hr 1X ONCE IV Last administered on 01/11at 13:42; Start 01/11/18 at 13:30; Stop 01/11/18 at 14:29; Status DC Lorazepam (Ativan) 1 mg 1X ONCE IV Last administered on 01/11/18at 15:08; Start 01/11/18 at 13:30; Stop 01/11/18 at 13:31; Status DC Lorazepam (Ativan) 1 mg 1X ONCE IV Last administered on 01/11/18at 13:43; Start 01/11/18 at 13:30; Stop 01/11/18 at 13:33; Status DC Aspirin (Children'S Aspirin) 324 mg 1X ONCE PO Last administered on at 14:02; Start 01/11/18 at 13:45; Stop 01/11/18 at 13:46; Status DC Haloperidol Lactate (Haldol Inj) 5 mg PRN Q6HRS PRN IVP SEVERE AGITATION Last administered on 01/15/18at 03:51; Start 01/11/18 at 16:15 Lorazepam (Ativan) 4 mg PRN Q4HRS PRN IV ANXIETY / AGITATION Last administered on 01/15/18at 03:51; Start 01/11/18 at 16:15 Multivitamins 10 ml/Thiamine HCl 100 mg/Folic Acid 1 mg/Sodium Chloride 1,011.2 ml @ 125 mls/ hr DAILY IV Last administered on 01/14/18at 08:19; Start at 17:00; Stop 01/14/18 at 21:59; Status DC Dexmedetomidine HCl 200 mcg/ Sodium Chloride 50 ml @ 0 mls/hr CONT PRN IV PER PROTOCOL Last administered on 01/11/18at 17:00; Start 01/11/18 at 16:45; Stop 01/11/18 at 18:38; Status DC Sodium Chloride 500 ml @ 500 mls/hr 1X PRN PRN IV SEE COMMENTS; Start at 16:45 Atropine Sulfate (ATROPINE 0.5mg SYRINGE) 0.5 mg PRN Q5MIN PRN IV SEE COMMENTS ; Start 01/11/18 at 16:45 Lorazepam (Ativan) 4 mg PRN Q1HR PRN PO For CIWA 8-14; Start 01/11/18 at 18:15 Lorazepam (Ativan) 8 mg PRN Q1HR PRN PO For CIWA 15 or greater; Start at 18:15 Lorazepam (Ativan) 2 mg PRN Q1HR PRN IV For CIWA 8-14; Start 01/11/18 at 18:15 Lorazepam (Ativan) 4 mg PRN Q1HR PRN IV For CIWA 15 or greater Last administered on 01/12/18at 23:11; Start 01/11/18 at 18:15 Diphenhydramine HCl (Benadryl) 25 mg PRN Q15MIN PRN IVP EPS symptoms 2'Haldol admin; Start 01/11/18 at 18:15 Olanzapine (ZyPREXA IM) 10 mg 1X ONCE IM Last administered on 01/11/18at 18:42 ; Start 01/11/18 at 18:45; Stop 01/11/18 at 18:46; Status DC Dexmedetomidine HCl 200 mcg/ Sodium Chloride 50 ml @ 7 mls/hr CONT PRN IV PER PROTOCOL; Start 01/11/18 at 18:38; Stop 01/11/18 at 21:19; Status DC Propofol 100 ml @ As Directed STK-MED ONCE IV ; Start 01/11/18 at 18:43; Stop 01/11/18 at 18:44; Status DC Succinylcholine Chloride (Anectine) 200 mg STK-MED ONCE .ROUTE ; Start at 18:44; Stop 01/11/18 at 18:45; Status DC Fentanyl Citrate 30 ml @ 2.5 mls/hr CONT PRN IV PER PROTOCOL Last administered on 01/15/18at 05:11; Start 01/11/18 at 19:00 Propofol 100 ml @ 4.2 mls/hr CONT PRN IV PER PROTOCOL; Start 01/11/18 at 18: 45; Status Cancel Fentanyl Citrate (Fentanyl 2ml Vial) 25 mcg PRN Q1HR PRN IV SEE COMMENTS.; Start 01/11/18 at 18:45 Fentanyl Citrate (Fentanyl 2ml Vial) 50 mcg PRN Q1HR PRN IV SEE COMMENTS. Last administered on 01/11/18at 20:21; Start 01/11/18 at 18:45 Morphine Sulfate (Morphine Sulfate) 2 mg PRN Q1HR PRN IV SEE COMMENTS.; Start 01/11/18 at 18:45 Morphine Sulfate (Morphine Sulfate) 4 mg PRN Q1HR PRN IV SEE COMMENTS.; Start 01/11/18 at 18:45 Hydromorphone HCl (Dilaudid) 0.2 mg PRN Q1HR PRN IV SEE COMMENTS.; Start 01/11 at 18:45 Hydromorphone HCl (Dilaudid) 0.4 mg PRN Q1HR PRN IV SEE COMMENTS.; Start 01/11 at 18:45 Morphine Sulfate (Morphine Sulfate) 2 mg PRN Q1HR PRN IV ; Start 01/11/18 at 18:45; Status UNV Morphine Sulfate (Morphine Sulfate) 4 mg PRN Q1HR PRN IV ; Start 01/11/18 at 18:45; Status UNV Midazolam HCl 100 ml @ 1 mls/hr CONT PRN IV PER PROTOCOL Last administered on 01/15/18at 04:31; Start 01/11/18 at 18:45 Epinephrine HCl (EPINEPHrine SYRINGE) 1 mg STK-MED ONCE .ROUTE ; Start at 18:56; Stop 01/11/18 at 18:57; Status DC Propofol 100 ml @ 2.103 mls/ hr CONT PRN IV SEE I/O RECORD Last administered on 01/11/18at 20:23; Start 01/11/18 at 19:00 Vecuronium [place] (Norcuron Bolus) 10 mg STK-MED ONCE IV ; Start 01/11/18 at 19:02; Stop 01/11/18 at 19:03; Status DC Vancomycin HCl (Vanco Per Pharmacy) 1 each PRN DAILY PRN MC SEE COMMENTS Last administered on 01/12/18at 11:47; Start 01/11/18 at 20:15; Stop 01/12/18 at 13 :14; Status DC Piperacillin Sod/ Tazobactam Sod (Zosyn Per Pharmacy) 1 each PRN DAILY PRN MC SEE COMMENTS; Start 01/11/18 at 20:15; Stop 01/13/18 at 08:00; Status DC Piperacillin Sod/ Tazobactam Sod 4.5 gm/Sodium Chloride 100 ml @ 200 mls/hr Q6HRS IV Last administered on 01/13/18at 06:48; Start 01/12/18 at 00:00; Stop 01/13/18 at 07:57; Status DC Vancomycin HCl 2 gm/Sodium Chloride 500 ml @ 250 mls/hr 1X ONCE IV Last administered on 01/11/18at 21:00; Start 01/11/18 at 21:00; Stop 01/11/18 at 22 :59; Status DC Insulin Human Lispro (HumaLOG) 0-7 UNITS Q6HRS SQ Last administered on at 05:44; Start 01/12/18 at 00:00 Dextrose (Dextrose 50%-Water Syringe) 12.5 gm PRN Q15MIN PRN IV SEE COMMENTS; Start 01/11/18 at 21:00 Sodium Chloride 1,000 ml @ 100 mls/hr Q10H IV Last administered on 01/15/18at 04:34; Start 01/11/18 at 21:00 Dexmedetomidine HCl 200 mcg/ Sodium Chloride 50 ml @ 0 mls/hr CONT PRN IV PER PROTOCOL Last administered on 01/15/18at 06:05; Start 01/11/18 at 21:00 Acetaminophen (Tylenol) 650 mg PRN Q6HRS PRN PEG MILD PAIN / TEMP Last administered on 01/13/18at 02:42; Start 01/11/18 at 21:30 Magnesium Sulfate 50 ml @ 25 mls/hr 1X ONCE IV Last administered on at 01:27; Start 01/12/18 at 01:00; Stop 01/12/18 at 02:59; Status DC Sodium Chloride 1,000 ml @ 1,000 mls/hr 1X ONCE IV Last administered on 01/12at 01:00; Start 01/12/18 at 04:30; Stop 01/12/18 at 05:29; Status DC Vancomycin HCl 1.5 gm/Sodium Chloride 500 ml @ 250 mls/hr Q12H IV Last administered on 01/12/18at 08:44; Start 01/12/18 at 09:00; Stop 01/12/18 at 13 :14; Status DC Vancomycin HCl (Vancomycin Trough Level) 1 each 1X ONCE MC ; Start 01/12/18 at 20:30; Stop 01/12/18 at 20:30; Status DC Sodium Chloride 500 ml @ 500 mls/hr 1X ONCE IV Last administered on at 07:26; Start 01/12/18 at 07:00; Stop 01/12/18 at 07:59; Status DC Famotidine (Pepcid Vial) 20 mg BID IVP Last administered on 01/13/18at 20:49; Start 01/12/18 at 09:00; Stop 01/14/18 at 09:40; Status DC Albuterol/ Ipratropium (Duoneb) 3 ml RTQID NEB Last administered on 01/14/18at 19:39; Start 01/12/18 at 08:00 Heparin Sodium (Porcine) (Heparin Sodium) 5,000 unit Q8HRS SQ Last administered on 01/15/18at 05:43; Start 01/12/18 at 14:00 Gemfibrozil (Lopid) 600 mg BIDBFRMEAL PO ; Start 01/12/18 at 10:00 Linezolid/Dextrose 300 ml @ 300 mls/hr Q12HR IV Last administered on at 21:03; Start 01/12/18 at 21:00 Vecuronium [place] (Norcuron Bolus) 10 mg STK-MED ONCE IV ; Start 01/11/18 at 19:00; Stop 01/13/18 at 07:59; Status DC Succinylcholine Chloride (Anectine) 200 mg STK-MED ONCE .ROUTE ; Start at 19:00; Stop 01/13/18 at 07:59; Status DC Propofol (Diprivan) 1,000 mg STK-MED ONCE IV ; Start 01/11/18 at 19:00; Stop 01/13/18 at 07:59; Status DC Epinephrine HCl (EPINEPHrine SYRINGE) 1 mg STK-MED ONCE .ROUTE ; Start at 19:00; Stop 01/13/18 at 07:59; Status DC Piperacillin Sod/ Tazobactam Sod 2.25 gm/Sodium Chloride 50 ml @ 100 mls/hr Q8HRS IV Last administered on 01/15/18at 05:42; Start 01/13/18 at 14:00 Doxycycline Hyclate 100 mg/ Dextrose 100 ml @ 50 mls/hr Q12HR IV Last administered on 01/14/18at 21:04; Start 01/13/18 at 09:00 Sodium Bicarbonate (Sodium Bicarb Adult 8.4% Syr) 100 meq 1X ONCE IV Last administered on 01/13/18at 09:12; Start 01/13/18 at 09:15; Stop 01/13/18 at 09 :16; Status DC Sodium Chloride 1,000 ml @ 1,000 mls/hr Q1H IV ; Start 01/13/18 at 12:30; Status Cancel Sodium Chloride 1,000 ml @ 1,000 mls/hr 1X ONCE IV Last administered on 01/13at 12:15; Start 01/13/18 at 12:15; Stop 01/13/18 at 13:14; Status DC Vecuronium [place] (Norcuron Bolus) 6 mg PRN Q6HRS PRN IV VENT ASYNCHRONY Last administered on 01/14/18at 10:17; Start 01/13/18 at 12:30 Info (Tpn Per Pharmacy) 1 each PRN DAILY PRN MC SEE COMMENTS Last administered on 01/14/18at 13:59; Start 01/14/18 at 09:45 Famotidine (Pepcid Vial) 20 mg DAILY IVP ; Start 01/15/18 at 09:00 Sodium Bicarbonate (Sodium Bicarb Adult 8.4% Syr) 50 meq STK-MED ONCE .ROUTE ; Start 01/14/18 at 11:12; Stop 01/14/18 at 11:13; Status DC Labetalol HCl (Normodyne Iv Push) 10 mg PRN Q4HRS PRN IVP HYPERTENSION, SEE COMMENTS Last administered on 01/14/18at 11:33; Start 01/14/18 at 11:30 Sodium Bicarbonate (Sodium Bicarb Adult 8.4% Syr) 100 meq 1X ONCE IV Last administered on 01/14/18at 11:34; Start 01/14/18 at 11:30; Stop 01/14/18 at 11 :31; Status DC Sodium Chloride 45 meq/Sodium Acetate 45 meq/ Potassium Chloride 30 meq/ Potassium Phosphate 6.8 mmol/Magnesium Sulfate 10 meq/ Calcium Gluconate 10 meq / Multivitamins 10 ml/Chromium/ Copper/Manganese/ Seleni/Zn 1 ml/ Thiamine HCl 100 mg/Folic Acid 1 mg/Total Julieta... 1,512 ml @ 63 mls/hr TPN CONT IV Last administered on 01/14/18at 21:37; Start 01/14/18 at 22:00; Stop 01/15/18 at 21:59 Labetalol HCl (Normodyne Iv Push) 20 mg PRN Q2HR PRN IVP HYPERTENSION, SEE COMMENTS; Start 01/14/18 at 15:30 Active Scripts Active Reported [hemp botanicals] Maxitrol Eye Drops (Brandon/Polymyx B Sulf/Dexameth) 5 Ml Drops.susp 1 Drop OD QID Multivitamins (Multivitamin) 1 Each Tablet 1 Tab PO DAILY Magnesium (Magnesium Oxide) 400 Mg Capsule 1 Cap PO DAILY Calcium (Calcium Carbonate) 500 Mg Tab.chew 500 Mg PO Lansoprazole 30 Mg Capsule.dr 1 Cap PO DAILY Losartan Potassium 25 Mg Tablet 25 Mg PO DAILY Tizanidine Hcl 4 Mg Tablet 1 Tab PO TID Tramadol Hcl 50 Mg Tablet 50 Mg PO DAILY PRN Bystolic (Nebivolol Hcl) 20 Mg Tablet 20 Mg PO DAILY Cymbalta (Duloxetine Hcl) 20 Mg Capsule.dr 1 Cap PO DAILY Valacyclovir (Valacyclovir Hcl) 1,000 Mg Tablet 1 Tab PO DAILY Ibuprofen 400 Mg Tablet 400 Mg PO PRN Q6HRS PRN Bystolic (Nebivolol) 10 Mg Tablet 20 Mg PO DAILY Amlodipine Besylate 10 Mg Tablet 10 Mg PO DAILY Vitals/I & O Vital Sign - Last 24 Hours 01/14/18 01/14/18 01/14/18 01/14/18 07:00 07:42 08:00 08:00 Temp 99.8 99.8 Pulse 94 100 Resp 24 24 B/P (MAP) 131/81 (98) 142/81 (101) Pulse Ox 98 96 99 O2 Delivery Ventilator Ventilator Mechanical Ventilator Ventilator 01/14/18 01/14/18 01/14/18 01/14/18 09:00 10:00 10:02 11:00 Pulse 92 130 125 Resp 26 36 36 B/P (MAP) 149/87 (107) 164/110 (128) 187/94 (125) Pulse Ox 92 90 96 92 O2 Delivery Ventilator Ventilator Ventilator Ventilator 01/14/18 01/14/18 01/14/18 01/14/18 11:33 11:52 12:00 12:00 Temp 100.2 100.2 Pulse 125 135 Resp 26 B/P (MAP) 187/94 140/75 (96) Pulse Ox 91 91 O2 Delivery Ventilator Ventilator Mechanical Ventilator 01/14/18 01/14/18 01/14/18 01/14/18 13:00 13:01 13:08 14:00 Pulse 122 116 Resp 26 26 B/P (MAP) 182/92 (122) 171/90 (117) Pulse Ox 94 94 94 93 O2 Delivery Ventilator Ventilator Ventilator 01/14/18 01/14/18 01/14/18 01/14/18 15:00 16:00 16:00 16:19 Temp 99.6 99.6 Pulse 101 98 Resp 26 26 B/P (MAP) 139/79 (99) 132/74 (93) Pulse Ox 95 95 95 O2 Delivery Ventilator Mechanical Ventilator Ventilator Ventilator 01/14/18 01/14/18 01/14/18 01/14/18 17:00 18:00 18:11 19:00 Pulse 98 101 100 Resp 26 26 26 B/P (MAP) 150/87 (108) 129/67 (87) 126/67 (86) Pulse Ox 97 99 94 95 O2 Delivery Ventilator Ventilator Ventilator Ventilator 01/14/18 01/14/18 01/14/18 01/14/18 19:31 19:39 20:00 20:00 Temp 99.3 99.3 Pulse 90 Resp B/P (MAP) 107/63 (78) Pulse Ox 94 98 99 O2 Delivery Room Air Ventilator Ventilator Mechanical Ventilator 01/14/18 01/14/18 01/14/18 01/14/18 21:00 21:00 22:00 23:00 Pulse 90 86 86 Resp B/P (MAP) 110/64 (79) 111/69 (83) 129/78 (95) Pulse Ox 99 99 99 99 O2 Delivery Ventilator Ventilator Ventilator Ventilator 01/14/18 01/14/18 01/15/18 01/15/18 23:26 23:59 00:00 01:00 Temp 98.6 98.6 Pulse 83 Resp B/P (MAP) 116/74 (88) Pulse Ox 99 98 99 O2 Delivery Ventilator Mechanical Ventilator Ventilator Ventilator 01/15/18 01/15/18 01/15/18 01/15/18 01:00 01:32 02:00 02:49 Pulse 85 83 Resp B/P (MAP) 125/77 (93) 117/72 (87) Pulse Ox 98 98 99 O2 Delivery Ventilator Ventilator Ventilator Ventilator 01/15/18 01/15/18 01/15/18 01/15/18 03:00 04:00 04:00 05:00 Temp 98.9 98.9 Pulse 82 90 87 Resp B/P (MAP) 117/76 (90) 100/76 (84) 118/75 (89) Pulse Ox 99 99 99 O2 Delivery Ventilator Mechanical Ventilator Ventilator Ventilator 01/15/18 01/15/18 01/15/18 05:05 05:41 06:00 Pulse 103 Resp 26 B/P (MAP) 125/88 (100) Pulse Ox 100 93 O2 Delivery Ventilator Ventilator Ventilator Intake and Output 01/14/18 01/14/18 01/15/18 15:00 23:00 07:00 Intake Total 350 ml 3147.19 ml 2378 ml Output Total 800 ml 595 ml 1060 ml Balance -450 ml 2552.19 ml 1318 ml JOSE APPIAH MD Jan 15, 2018 07:01
[2018-01-15] MEDS: IPRATRPIUM/ALBUTEROL 0.5/2.5MG 3 ML NEBU. NEB SCH ×4 (07:37→19:39)
--- NOTE | 2018-01-15 07:56 | RAD ---
PORTABLE CHEST 1V Clinical indications: RESP FAILURE follow-up study. COMPARISON: January 14, 2018. Findings: There has been improvement in the bilateral perihilar pulmonary edema which is still present. Improvement of left lung base and right lung base consolidative infiltrate or consolidative pulmonary edema is evident. Small left-sided pleural effusion is still present. No pneumothorax is evident. There have been no interval tube or line changes. The heart size and mediastinum are stable. IMPRESSION: Improving CHF. Electronically signed by: George Tyler MD (01/15/2018 7:53 AM) [facility]
[2018-01-15] MEDS ORDERED: MULTIVIT INFUSN,ADULT 4,VIT K 10 ML, THIAMINE INJ 100 MG, FOLIC ACID INJ 1 MG in IV NOR... IV ONE (08:15)
[2018-01-15 08:39] LABS: BASE EXCESS ABG -7 mmol/L (-3-3); HCO3 ABG 20 mmol/L (21-28); PCO2 ABG 48 mmHg (35-46); PO2 ABG 54 mmHg (75-108); SAT O2 ABG 87 % (92-99)
[2018-01-15] MEDS: GEMFIBROZIL 600 MG TABLET. PO SCH ×2 (08:39→16:37)
[2018-01-15] MEDS: FAMOTIDINE 20 MG/2 ML VIAL IVP SCH (08:40)
[2018-01-15 08:41] LABS: FIO2 ABG 50
[2018-01-15] MEDS: DOXYCYCLINE HYCLATE 100 MG in IV DEXTROSE 5% 100ML 100 ML IV SCH ×2 (08:46→21:03)
[2018-01-15] MEDS ORDERED: IV NORMAL SALINE 1000ML BAG 1,000 ML IV PRN ×2 (09:06)
[2018-01-15] MEDS ORDERED: diphenhydrAMINE 50 MG/ML VIAL IV PRN (09:15)
[2018-01-15] MEDS ORDERED: ALBUMIN HUMAN 25% 200 ML IV ONE (09:15)
[2018-01-15] MEDS ORDERED: ACETAMINOPHEN 500 MG TABLET PO PRN (09:15)
[2018-01-15] MEDS ORDERED: DIALYSIS PATIENT. MC PRN (09:15)
[2018-01-15] MEDS ORDERED: C.DIFF MED SCREEN BY RX. MC PRN (09:30)
--- NOTE | 2018-01-15 09:31 | PDOC ---
Objective: Objective: Reviewed w/ RN - bilious OG output, no stools. Reviewed chart - agitated w/ decreased in Versed. On TPN. Vital Signs: Vital Signs Date Time Temp Pulse Resp B/P (MAP) Pulse Ox O2 Delivery O2 Flow Rate FiO2 01/15/18 08:00 100 26 130/76 (94) 99 Ventilator 01/15/18 07:00 99.2 99.2 Labs: Laboratory Tests Test 01/14/18 17:15 01/14/18 23:32 01/15/18 05:30 01/15/18 05:40 Glucose (Fingerstick) 188 mg/dL 247 mg/dL 261 mg/dL White Blood Count 6.3 x10^3/uL Red Blood Count 3.03 x10^6/uL Hemoglobin 10.0 g/dL Hematocrit 30.1 % Mean Corpuscular Volume 99 fL Mean Corpuscular Hemoglobin 33 pg Mean Corpuscular Hemoglobin Concent 33 g/dL Red Cell Distribution Width 14.4 % Platelet Count 172 x10^3/uL Neutrophils (%) (Auto) 76 % Lymphocytes (%) (Auto) 9 % Monocytes (%) (Auto) 10 % Eosinophils (%) (Auto) 5 % Basophils (%) (Auto) 0 % Neutrophils # (Auto) 4.8 x10^3uL Lymphocytes # (Auto) 0.5 x10^3/uL Monocytes # (Auto) 0.6 x10^3/uL Eosinophils # (Auto) 0.3 x10^3/uL Basophils # (Auto) 0.0 x10^3/uL Sodium Level 147 mmol/L Potassium Level 3.8 mmol/L Chloride Level 110 mmol/L Carbon Dioxide Level 24 mmol/L Anion Gap 13 Blood Urea Nitrogen 42 mg/dL Creatinine 6.1 mg/dL Estimated GFR (Cockcroft-Gault) 10.1 BUN/Creatinine Ratio 7 Glucose Level 270 mg/dL Calcium Level 7.5 mg/dL Phosphorus Level 3.9 mg/dL Magnesium Level 1.6 mg/dL Total Bilirubin 0.7 mg/dL Aspartate Amino Transf (AST/SGOT) 20 U/L Alanine Aminotransferase (ALT/SGPT) 22 U/L Alkaline Phosphatase 73 U/L Total Protein 5.9 g/dL Albumin 1.5 g/dL Albumin/Globulin Ratio 0.3 Lipase 459 U/L Test 01/15/18 08:10 O2 Saturation 87 % Arterial Blood pH 7.25 Arterial Blood pCO2 at Patient Temp 48 mmHg Arterial Blood pO2 at Patient Temp 54 mmHg Arterial Blood HCO3 20 mmol/L Arterial Blood Base Excess -7 mmol/L FiO2 50 BLOOD CULTURE Preliminary NO GROWTH AFTER 3 DAYS Imaging: Abd US FINDINGS: The liver measures 23.9 cm. The common bile duct measures 5.1 mm in diameter. There is increased echogenicity noted throughout the liver likely hepatic steatosis. Partially visualized small amount of perihepatic fluid. The pancreas is not well-visualized due to bowel gas. The IVC, aorta are not well-visualized due to bowel gas. The right kidney measures 15.5 cm in length. No evidence of gallstones. The gallbladder wall thickness measures 2.3 mm. IMPRESSION: 1. Hepatic steatosis. Hepatomegaly. 2. Examination is limited due to patient body habitus and due to bowel gas. CXR IMPRESSION: Improving CHF. PE: GEN: intubated HEENT: OG w/ bilious output LUNGS: vent HEART: tachycardic ABD: still quiet NEURO/PSYCH: sedated, moving legs around A/P: Agitation/encephalopathy, resp failure, sepsis, renal failure Pancreatitis - h/o alcohol and hypertriglyceridemia, no gallstones on US -- Continue same per GI. MARILYN VASQUEZ Jan 15, 2018 09:31
--- NOTE | 2018-01-15 10:05 | PDOC ---
SUBJECTIVE ROS Intubated, significantly Improved UOP OBJECTIVE Vital Signs Vital Signs Date Time Temp Pulse Resp B/P (MAP) Pulse Ox O2 Delivery O2 Flow Rate FiO2 01/15/18 09:39 100 Ventilator 01/15/18 08:00 100 26 130/76 (94) 01/15/18 07:00 99.2 99.2 I & 0 Intake and Output 01/15/18 07:00 Intake Total 5875.19 ml Output Total 2775 ml Balance 3100.19 ml IV Total 5875.19 ml Output Urine Total 2775 ml PHYSICAL EXAM Physical Exam GENERAL: sedated and intubated. HEENT: ETT and NGT in place. NECK: Supple/ No JVD LUNGS: Diminished aeration in the bases. HEART: Regular rhythm. ABDOMEN: Obese. : Indwelling Cook in place. EXTREMITIES: No edema SKIN: Has tattoos. No rash.scabs in LE NEUROLOGIC: sedated. DIAGNOSIS/ASSESSMENT Assessment & Plan DENISHA - Likely ATN Noted Acute Worsening with Oliguria , Improved UOP - Mild Increase in Creatinine- Likely plateauing E-Lytes and acid base stable, Now Good UOP Currently No Emergent Indication for [employer] , Monitor Pancreatitis- Noted elevated Lipase , CT Ordered cw Pancreatitis GI following- Pancreatitis - h/o alcohol and hypertriglyceridemia, no gallstones on US Hypernatremia- Higher after Corrected for Glucose On TPN since last night, Monitor Fever/ Aspiration pneumonia ID Following Lactic acidosis, improved. Acute encephalopathy with hallucinations and behavioral change. Heavy alcohol use Discussed with RN and Dr. Eid COMMENT/RELEVANT DATA Meds Current Medications Medications (Trade) Dose Ordered Sig/Yamile Start Time Stop Time Status Last Admin Dose Admin Acetaminophen (Tylenol) 500 mg 1X PRN PRN 01/15/18 09:15 01/15/18 09:32 DC Albumin Human 200 ml @ 200 mls/hr 1X ONCE 01/15/18 09:15 01/15/18 09:32 DC Albuterol/ Ipratropium (Duoneb) 3 ml RTQID 01/12/18 08:00 01/15/18 07:37 3 ML Aspirin (Children'S Aspirin) 324 mg 1X ONCE 01/11/18 13:45 01/11/18 13:46 DC 01/11/18 14:02 324 MG Atropine Sulfate (ATROPINE 0.5mg SYRINGE) 0.5 mg PRN Q5MIN PRN 10/13/18 16:45 Dexmedetomidine HCl 200 mcg/ Sodium Chloride 50 ml @ 0 mls/hr CONT PRN 01/11/18 21:00 01/15/18 08:23 2.47 MLS/HR Dextrose (Dextrose 50%-Water Syringe) 12.5 gm PRN Q15MIN PRN 01/11/18 21:00 Dextrose/Sodium Chloride 1,000 ml @ 0 mls/hr 1X ONCE 01/11/18 13:00 01/11/18 13:16 DC Diphenhydramine HCl (Benadryl) 25 mg 1X PRN PRN 01/15/18 09:15 01/15/18 09:32 DC Doxycycline Hyclate 100 mg/ Dextrose 100 ml @ 50 mls/hr Q12HR 01/13/18 09:00 01/15/18 08:46 50 MLS/HR Epinephrine HCl (EPINEPHrine SYRINGE) 1 mg STK-MED ONCE 01/11/18 19:00 01/13/18 07:59 DC Famotidine (Pepcid Vial) 20 mg DAILY 01/15/18 09:00 01/15/18 08:40 20 MG Fentanyl Citrate (Fentanyl 2ml Vial) 50 mcg PRN Q1HR PRN 01/11/18 18:45 01/11/18 20:21 50 MCG Gemfibrozil (Lopid) 600 mg BIDBFRMEAL 01/12/18 10:00 01/15/18 08:39 600 MG Haloperidol Lactate (Haldol Inj) 5 mg PRN Q6HRS PRN 01/11/18 16:15 01/15/18 03:51 5 MG Heparin Sodium (Porcine) (Heparin Sodium) 5,000 unit Q8HRS 01/12/18 14:00 01/15/18 05:43 5,000 UNIT Hydromorphone HCl (Dilaudid) 0.4 mg PRN Q1HR PRN 01/11/18 18:45 Info (PHARMACY MONITORING -- do not chart) 1 each PRN DAILY PRN 01/15/18 09:15 Info (Tpn Per Pharmacy) 1 each PRN DAILY PRN 01/14/18 09:45 01/14/18 13:59 1 EACH Insulin Human Lispro (HumaLOG) 0-7 UNITS Q6HRS 01/12/18 00:00 01/15/18 05:44 6 UNITS Labetalol HCl (Normodyne Iv Push) 20 mg PRN Q2HR PRN 01/14/18 15:30 Linezolid/Dextrose 300 ml @ 300 mls/hr Q12HR 01/12/18 21:00 01/15/18 08:39 300 MLS/HR Lorazepam (Ativan) 4 mg PRN Q1HR PRN 01/11/18 18:15 01/12/18 23:11 4 MG Magnesium Sulfate 50 ml @ 25 mls/hr 1X ONCE 01/12/18 01:00 01/12/18 02:59 DC 01/12/18 01:27 25 MLS/HR Midazolam HCl 100 ml @ 1 mls/hr CONT PRN 01/11/18 18:45 01/15/18 04:31 10 MLS/HR Morphine Sulfate (Morphine Sulfate) 4 mg PRN Q1HR PRN 01/11/18 18:45 UNV Multivitamins 10 ml/Thiamine HCl 100 mg/Folic Acid 1 mg/Sodium Chloride 1,011.2 ml @ 1,000.088 mls/hr 1X ONCE 01/15/18 08:15 01/15/18 09:15 UNV Olanzapine (ZyPREXA IM) 10 mg 1X ONCE 01/11/18 18:45 01/11/18 18:46 DC 01/11/18 18:42 10 MG Pharmacy Consult (C.diff Med Screen By Rx) 1 each PRN 1X PRN 01/15/18 09:30 Cancel Piperacillin Sod/ Tazobactam Sod (Zosyn Per Pharmacy) 1 each PRN DAILY PRN 01/11/18 20:15 01/13/18 08:00 DC Piperacillin Sod/ Tazobactam Sod 2.25 gm/Sodium Chloride 50 ml @ 100 mls/hr Q8HRS 01/13/18 14:00 01/15/18 05:42 100 MLS/HR Piperacillin Sod/ Tazobactam Sod 4.5 gm/Sodium Chloride 100 ml @ 200 mls/hr Q6HRS 01/12/18 00:00 01/13/18 07:57 DC 01/13/18 06:48 200 MLS/HR Propofol (Diprivan) 1,000 mg STK-MED ONCE 01/11/18 19:00 01/13/18 07:59 DC Sodium Bicarbonate (Sodium Bicarb Adult 8.4% Syr) 100 meq 1X ONCE 01/14/18 11:30 01/14/18 11:31 DC 01/14/18 11:34 100 MEQ Sodium Chloride 1,000 ml @ 400 mls/hr Q2H30M PRN 01/15/18 09:06 01/15/18 09:32 DC Sodium Chloride 45 meq/Sodium Acetate 45 meq/ Potassium Chloride 30 meq/ Potassium Phosphate 6.8 mmol/Magnesium Sulfate 10 meq/ Calcium Gluconate 10 meq/ Multivitamins 10 ml/Chromium/ Copper/Manganese/ Seleni/Zn 1 ml/ Thiamine HCl 100 mg/Folic Acid 1 mg/Total Julieta... 1,512 ml @ 63 mls/hr TPN CONT 01/14/18 22:00 01/15/18 21:59 01/14/18 21:37 63 MLS/HR Succinylcholine Chloride (Anectine) 200 mg STK-MED ONCE 01/11/18 19:00 01/13/18 07:59 DC Vancomycin HCl (Vanco Per Pharmacy) 1 each PRN DAILY PRN 01/11/18 20:15 01/12/18 13:14 DC 01/12/18 11:47 1 EACH Vancomycin HCl (Vancomycin Trough Level) 1 each 1X ONCE 01/12/18 20:30 01/12/18 20:30 DC Vancomycin HCl 1.5 gm/Sodium Chloride 500 ml @ 250 mls/hr Q12H 01/12/18 09:00 01/12/18 13:14 DC 01/12/18 08:44 250 MLS/HR Vancomycin HCl 2 gm/Sodium Chloride 500 ml @ 250 mls/hr 1X ONCE 01/11/18 21:00 01/11/18 22:59 DC 01/11/18 21:00 250 MLS/HR Vecuronium [place] (Norcuron Bolus) 6 mg PRN Q6HRS PRN 01/13/18 12:30 01/14/18 10:17 6 MG Lab Laboratory Tests Test 01/14/18 17:15 01/14/18 23:32 01/15/18 05:30 01/15/18 05:40 Glucose (Fingerstick) 188 mg/dL (70-99) 247 mg/dL (70-99) 261 mg/dL (70-99) White Blood Count 6.3 x10^3/uL (4.0-11.0) Red Blood Count 3.03 x10^6/uL (4.30-5.70) Hemoglobin 10.0 g/dL (13.0-17.5) Hematocrit 30.1 % (39.0-53.0) Mean Corpuscular Volume 99 fL (79-100) Mean Corpuscular Hemoglobin 33 pg (25-35) Mean Corpuscular Hemoglobin Concent 33 g/dL (31-37) Red Cell Distribution Width 14.4 % (11.5-14.5) Platelet Count 172 x10^3/uL (140-400) Neutrophils (%) (Auto) 76 % (31-73) Lymphocytes (%) (Auto) 9 % (24-48) Monocytes (%) (Auto) 10 % (0-9) Eosinophils (%) (Auto) 5 % (0-3) Basophils (%) (Auto) 0 % (0-3) Neutrophils # (Auto) 4.8 x10^3uL (1.8-7.7) Lymphocytes # (Auto) 0.5 x10^3/uL (1.0-4.8) Monocytes # (Auto) 0.6 x10^3/uL (0.0-1.1) Eosinophils # (Auto) 0.3 x10^3/uL (0.0-0.7) Basophils # (Auto) 0.0 x10^3/uL (0.0-0.2) Sodium Level 147 mmol/L (136-145) Potassium Level 3.8 mmol/L (3.5-5.1) Chloride Level 110 mmol/L (98-107) Carbon Dioxide Level 24 mmol/L (21-32) Anion Gap 13 (6-14) Blood Urea Nitrogen 42 mg/dL (8-26) Creatinine 6.1 mg/dL (0.7-1.3) Estimated GFR (Cockcroft-Gault) 10.1 BUN/Creatinine Ratio 7 (6-20) Glucose Level 270 mg/dL (70-99) Calcium Level 7.5 mg/dL (8.5-10.1) Phosphorus Level 3.9 mg/dL (2.6-4.7) Magnesium Level 1.6 mg/dL (1.8-2.4) Total Bilirubin 0.7 mg/dL (0.2-1.0) Aspartate Amino Transf (AST/SGOT) 20 U/L (15-37) Alanine Aminotransferase (ALT/SGPT) 22 U/L (16-63) Alkaline Phosphatase 73 U/L (46-116) Total Protein 5.9 g/dL (6.4-8.2) Albumin 1.5 g/dL (3.4-5.0) Albumin/Globulin Ratio 0.3 (1.0-1.7) Lipase 459 U/L (73-393) Test 01/15/18 08:10 O2 Saturation 87 % (92-99) Arterial Blood pH 7.25 (7.35-7.45) Arterial Blood pCO2 at Patient Temp 48 mmHg (35-46) Arterial Blood pO2 at Patient Temp 54 mmHg (75-108) Arterial Blood HCO3 20 mmol/L (21-28) Arterial Blood Base Excess -7 mmol/L (-3-3) FiO2 50 Results All relevant outside records, renal labs, imaging studies, telemetry/EKG's were reviewed CxR-- 01/15 -- There has been improvement in the bilateral perihilar pulmonary edema which is still present. Improvement of left lung base and right lung base consolidative infiltrate or consolidative pulmonary edema is evident. Small left-sided pleural effusion is still present. No pneumothorax is evident. There have been no interval tube or line changes. The heart size and mediastinum are stable. IMPRESSION: Improving CHF. NERISSA BURR MD Jan 15, 2018 10:05
[2018-01-15] MEDS: VECURONIUM BOLUS 10 MG VIAL. IV PRN ×3 (10:23→23:27)
--- NOTE | 2018-01-15 10:56 | PDOC ---
PULMONARY PROGRESS NOTES Subjective remains on AC mode needs a lot of sedatives to control agitation/ sedation holiday failed today worsening renal function Vitals Vital Signs Date Time Temp Pulse Resp B/P (MAP) Pulse Ox O2 Delivery O2 Flow Rate FiO2 01/15/18 09:39 100 Ventilator 01/15/18 08:00 100 26 130/76 (94) 01/15/18 07:00 99.2 99.2 Lungs: Other (decrease bs) Cardiovascular: S1 Abdomen: Soft Extremities: Other (1+edema) Skin: Warm Labs Laboratory Tests Test 01/13/18 12:38 01/13/18 18:27 01/13/18 23:58 01/14/18 05:40 Glucose (Fingerstick) 235 mg/dL (70-99) 255 mg/dL (70-99) 235 mg/dL (70-99) 130 mg/dL (70-99) Test 01/14/18 06:00 01/14/18 07:45 01/14/18 17:15 01/14/18 23:32 White Blood Count 7.2 x10^3/uL (4.0-11.0) Red Blood Count 3.28 x10^6/uL (4.30-5.70) Hemoglobin 10.8 g/dL (13.0-17.5) Hematocrit 32.6 % (39.0-53.0) Mean Corpuscular Volume 100 fL (79-100) Mean Corpuscular Hemoglobin 33 pg (25-35) Mean Corpuscular Hemoglobin Concent 33 g/dL (31-37) Red Cell Distribution Width 14.3 % (11.5-14.5) Platelet Count 187 x10^3/uL (140-400) Neutrophils (%) (Auto) 79 % (31-73) Lymphocytes (%) (Auto) 9 % (24-48) Monocytes (%) (Auto) 7 % (0-9) Eosinophils (%) (Auto) 5 % (0-3) Basophils (%) (Auto) 0 % (0-3) Neutrophils # (Auto) 5.7 x10^3uL (1.8-7.7) Lymphocytes # (Auto) 0.6 x10^3/uL (1.0-4.8) Monocytes # (Auto) 0.5 x10^3/uL (0.0-1.1) Eosinophils # (Auto) 0.3 x10^3/uL (0.0-0.7) Basophils # (Auto) 0.0 x10^3/uL (0.0-0.2) Sodium Level 142 mmol/L (136-145) Potassium Level 4.1 mmol/L (3.5-5.1) Chloride Level 108 mmol/L (98-107) Carbon Dioxide Level 23 mmol/L (21-32) Anion Gap 11 (6-14) Blood Urea Nitrogen 37 mg/dL (8-26) Creatinine 5.7 mg/dL (0.7-1.3) Estimated GFR (Cockcroft-Gault) 10.9 Glucose Level 183 mg/dL (70-99) Calcium Level 7.8 mg/dL (8.5-10.1) Phosphorus Level 4.6 mg/dL (2.6-4.7) Magnesium Level 1.8 mg/dL (1.8-2.4) Total Bilirubin 0.6 mg/dL (0.2-1.0) Direct Bilirubin 0.4 mg/dL (0.0-0.2) Aspartate Amino Transf (AST/SGOT) 31 U/L (15-37) Alanine Aminotransferase (ALT/SGPT) 25 U/L (16-63) Alkaline Phosphatase 66 U/L (46-116) Total Protein 5.9 g/dL (6.4-8.2) Albumin 1.6 g/dL (3.4-5.0) Triglycerides Level 891 mg/dL (0-150) Lipase 482 U/L (73-393) O2 Saturation 94 % (92-99) Arterial Blood pH 7.24 (7.35-7.45) Arterial Blood pCO2 at Patient Temp 47 mmHg (35-46) Arterial Blood pO2 at Patient Temp 66 mmHg (75-108) Arterial Blood HCO3 20 mmol/L (21-28) Arterial Blood Base Excess -8 mmol/L (-3-3) FiO2 50 Glucose (Fingerstick) 188 mg/dL (70-99) 247 mg/dL (70-99) Test 01/15/18 05:30 01/15/18 05:40 01/15/18 08:10 White Blood Count 6.3 x10^3/uL (4.0-11.0) Red Blood Count 3.03 x10^6/uL (4.30-5.70) Hemoglobin 10.0 g/dL (13.0-17.5) Hematocrit 30.1 % (39.0-53.0) Mean Corpuscular Volume 99 fL (79-100) Mean Corpuscular Hemoglobin 33 pg (25-35) Mean Corpuscular Hemoglobin Concent 33 g/dL (31-37) Red Cell Distribution Width 14.4 % (11.5-14.5) Platelet Count 172 x10^3/uL (140-400) Neutrophils (%) (Auto) 76 % (31-73) Lymphocytes (%) (Auto) 9 % (24-48) Monocytes (%) (Auto) 10 % (0-9) Eosinophils (%) (Auto) 5 % (0-3) Basophils (%) (Auto) 0 % (0-3) Neutrophils # (Auto) 4.8 x10^3uL (1.8-7.7) Lymphocytes # (Auto) 0.5 x10^3/uL (1.0-4.8) Monocytes # (Auto) 0.6 x10^3/uL (0.0-1.1) Eosinophils # (Auto) 0.3 x10^3/uL (0.0-0.7) Basophils # (Auto) 0.0 x10^3/uL (0.0-0.2) Sodium Level 147 mmol/L (136-145) Potassium Level 3.8 mmol/L (3.5-5.1) Chloride Level 110 mmol/L (98-107) Carbon Dioxide Level 24 mmol/L (21-32) Anion Gap 13 (6-14) Blood Urea Nitrogen 42 mg/dL (8-26) Creatinine 6.1 mg/dL (0.7-1.3) Estimated GFR (Cockcroft-Gault) 10.1 BUN/Creatinine Ratio 7 (6-20) Glucose Level 270 mg/dL (70-99) Calcium Level 7.5 mg/dL (8.5-10.1) Phosphorus Level 3.9 mg/dL (2.6-4.7) Magnesium Level 1.6 mg/dL (1.8-2.4) Total Bilirubin 0.7 mg/dL (0.2-1.0) Aspartate Amino Transf (AST/SGOT) 20 U/L (15-37) Alanine Aminotransferase (ALT/SGPT) 22 U/L (16-63) Alkaline Phosphatase 73 U/L (46-116) Total Protein 5.9 g/dL (6.4-8.2) Albumin 1.5 g/dL (3.4-5.0) Albumin/Globulin Ratio 0.3 (1.0-1.7) Lipase 459 U/L (73-393) Glucose (Fingerstick) 261 mg/dL (70-99) O2 Saturation 87 % (92-99) Arterial Blood pH 7.25 (7.35-7.45) Arterial Blood pCO2 at Patient Temp 48 mmHg (35-46) Arterial Blood pO2 at Patient Temp 54 mmHg (75-108) Arterial Blood HCO3 20 mmol/L (21-28) Arterial Blood Base Excess -7 mmol/L (-3-3) FiO2 50 Laboratory Tests Test 01/14/18 17:15 01/14/18 23:32 01/15/18 05:30 01/15/18 05:40 Glucose (Fingerstick) 188 mg/dL (70-99) 247 mg/dL (70-99) 261 mg/dL (70-99) White Blood Count 6.3 x10^3/uL (4.0-11.0) Red Blood Count 3.03 x10^6/uL (4.30-5.70) Hemoglobin 10.0 g/dL (13.0-17.5) Hematocrit 30.1 % (39.0-53.0) Mean Corpuscular Volume 99 fL (79-100) Mean Corpuscular Hemoglobin 33 pg (25-35) Mean Corpuscular Hemoglobin Concent 33 g/dL (31-37) Red Cell Distribution Width 14.4 % (11.5-14.5) Platelet Count 172 x10^3/uL (140-400) Neutrophils (%) (Auto) 76 % (31-73) Lymphocytes (%) (Auto) 9 % (24-48) Monocytes (%) (Auto) 10 % (0-9) Eosinophils (%) (Auto) 5 % (0-3) Basophils (%) (Auto) 0 % (0-3) Neutrophils # (Auto) 4.8 x10^3uL (1.8-7.7) Lymphocytes # (Auto) 0.5 x10^3/uL (1.0-4.8) Monocytes # (Auto) 0.6 x10^3/uL (0.0-1.1) Eosinophils # (Auto) 0.3 x10^3/uL (0.0-0.7) Basophils # (Auto) 0.0 x10^3/uL (0.0-0.2) Sodium Level 147 mmol/L (136-145) Potassium Level 3.8 mmol/L (3.5-5.1) Chloride Level 110 mmol/L (98-107) Carbon Dioxide Level 24 mmol/L (21-32) Anion Gap 13 (6-14) Blood Urea Nitrogen 42 mg/dL (8-26) Creatinine 6.1 mg/dL (0.7-1.3) Estimated GFR (Cockcroft-Gault) 10.1 BUN/Creatinine Ratio 7 (6-20) Glucose Level 270 mg/dL (70-99) Calcium Level 7.5 mg/dL (8.5-10.1) Phosphorus Level 3.9 mg/dL (2.6-4.7) Magnesium Level 1.6 mg/dL (1.8-2.4) Total Bilirubin 0.7 mg/dL (0.2-1.0) Aspartate Amino Transf (AST/SGOT) 20 U/L (15-37) Alanine Aminotransferase (ALT/SGPT) 22 U/L (16-63) Alkaline Phosphatase 73 U/L (46-116) Total Protein 5.9 g/dL (6.4-8.2) Albumin 1.5 g/dL (3.4-5.0) Albumin/Globulin Ratio 0.3 (1.0-1.7) Lipase 459 U/L (73-393) Test 01/15/18 08:10 O2 Saturation 87 % (92-99) Arterial Blood pH 7.25 (7.35-7.45) Arterial Blood pCO2 at Patient Temp 48 mmHg (35-46) Arterial Blood pO2 at Patient Temp 54 mmHg (75-108) Arterial Blood HCO3 20 mmol/L (21-28) Arterial Blood Base Excess -7 mmol/L (-3-3) FiO2 50 Medications Active Scripts Medications Dose Route/Sig Max Daily Dose Days Date Category [hemp botanicals] 01/12/18 Reported Maxitrol Eye Drops (Brandon/Polymyx B Sulf/Dexameth) 5 Ml Drops.susp 1 Drop OD QID 01/12/18 Reported Multivitamins (Multivitamin) 1 Each Tablet 1 Tab PO DAILY 01/12/18 Reported Magnesium (Magnesium Oxide) 400 Mg Capsule 1 Cap PO DAILY 01/12/18 Reported Calcium (Calcium Carbonate) 500 Mg Tab.chew 500 Mg PO 01/12/18 Reported Lansoprazole 30 Mg Capsule.dr 1 Cap PO DAILY 01/12/18 Reported Losartan Potassium 25 Mg Tablet 25 Mg PO DAILY 01/12/18 Reported Tizanidine Hcl 4 Mg Tablet 1 Tab PO TID 01/12/18 Reported Tramadol Hcl 50 Mg Tablet 50 Mg PO DAILY PRN 01/12/18 Reported Bystolic (Nebivolol Hcl) 20 Mg Tablet 20 Mg PO DAILY 01/12/18 Reported Cymbalta (Duloxetine Hcl) 20 Mg Capsule.dr 1 Cap PO DAILY 01/12/18 Reported Valacyclovir (Valacyclovir Hcl) 1,000 Mg Tablet 1 Tab PO DAILY 01/12/18 Reported Ibuprofen 400 Mg Tablet 400 Mg PO PRN Q6HRS PRN 09/21/15 Reported Bystolic (Nebivolol) 10 Mg Tablet 20 Mg PO DAILY 09/21/15 Reported Amlodipine Besylate 10 Mg Tablet 10 Mg PO DAILY 09/21/15 Reported Comments CXR 01/15 REVIEWED NO SIG CHANGE Impression . 1. Acute respiratory failure./ multi-factorial 2. Abnormal chest x-ray/ poor insp effort, basal atelectasis 3. Sepsis . source pancreatitis 4. Severe agitation, secondary to alcohol withdrawal /sepsis 5. alcoholic pancreatitis 6. No obvious CHF/ normal EF 7. History of alcohol abuse. Level neg. Positive for Marihuana 8. Obesity? obstructive sleep apnea-hypopnea syndrome. 9. DENISHA,, worse 10. Combined met/resp acidosis Plan . 1. Titrate FiO2 to keep O2 saturation 94%.AC mode. not ready for weaning 2. change vent setting per ABG./ prn bicarb 3. bronchodilator. 4. s/p fluid bolus. 5. ID rec 6. Renal rec/ May need HD 7. Pepcid for stress ulcer prophylaxis. 8. Lovenox 9. follow amylase/ lipase 10. Control blood sugar. 13. The findings and recommendations were discussed with RN./ father in detail yesterday/ prognosis explained. AJ FINK MD Jan 15, 2018 10:56
--- NOTE | 2018-01-15 12:07 | PDOC ---
Infectious Disease Note Subjective Subjective Intubated/sedated ROS ROS unable to obtain Vital Sign Vital Signs Vital Signs Date Time Temp Pulse Resp B/P (MAP) Pulse Ox O2 Delivery O2 Flow Rate FiO2 01/15/18 11:52 100 Ventilator 01/15/18 08:00 100 26 130/76 (94) 01/15/18 07:00 99.2 99.2 Physical Exam PHYSICAL EXAM GENERAL: sedated and intubated. HEENT: Pupils small and equal. ETT and NGT in place. NECK: Supple/ No JVD LUNGS: Diminished aeration in the bases. HEART: Regular rhythm. ABDOMEN: Obese. Hypoactive bowel sounds, soft, no grimace or guarding to palpation. GENITOURINARY: Indwelling Cook in place. EXTREMITIES: 1 plus edema or cyanosis. SKIN: He has tattoos. Warm, Multiple small scabs on both legs. NEUROLOGIC: Unresponsive/sedated. RIJ - clean. PIV clean Labs Lab Laboratory Tests Test 01/14/18 17:15 01/14/18 23:32 01/15/18 05:30 01/15/18 05:40 Glucose (Fingerstick) 188 mg/dL (70-99) 247 mg/dL (70-99) 261 mg/dL (70-99) White Blood Count 6.3 x10^3/uL (4.0-11.0) Red Blood Count 3.03 x10^6/uL (4.30-5.70) Hemoglobin 10.0 g/dL (13.0-17.5) Hematocrit 30.1 % (39.0-53.0) Mean Corpuscular Volume 99 fL (79-100) Mean Corpuscular Hemoglobin 33 pg (25-35) Mean Corpuscular Hemoglobin Concent 33 g/dL (31-37) Red Cell Distribution Width 14.4 % (11.5-14.5) Platelet Count 172 x10^3/uL (140-400) Neutrophils (%) (Auto) 76 % (31-73) Lymphocytes (%) (Auto) 9 % (24-48) Monocytes (%) (Auto) 10 % (0-9) Eosinophils (%) (Auto) 5 % (0-3) Basophils (%) (Auto) 0 % (0-3) Neutrophils # (Auto) 4.8 x10^3uL (1.8-7.7) Lymphocytes # (Auto) 0.5 x10^3/uL (1.0-4.8) Monocytes # (Auto) 0.6 x10^3/uL (0.0-1.1) Eosinophils # (Auto) 0.3 x10^3/uL (0.0-0.7) Basophils # (Auto) 0.0 x10^3/uL (0.0-0.2) Sodium Level 147 mmol/L (136-145) Potassium Level 3.8 mmol/L (3.5-5.1) Chloride Level 110 mmol/L (98-107) Carbon Dioxide Level 24 mmol/L (21-32) Anion Gap 13 (6-14) Blood Urea Nitrogen 42 mg/dL (8-26) Creatinine 6.1 mg/dL (0.7-1.3) Estimated GFR (Cockcroft-Gault) 10.1 BUN/Creatinine Ratio 7 (6-20) Glucose Level 270 mg/dL (70-99) Calcium Level 7.5 mg/dL (8.5-10.1) Phosphorus Level 3.9 mg/dL (2.6-4.7) Magnesium Level 1.6 mg/dL (1.8-2.4) Total Bilirubin 0.7 mg/dL (0.2-1.0) Aspartate Amino Transf (AST/SGOT) 20 U/L (15-37) Alanine Aminotransferase (ALT/SGPT) 22 U/L (16-63) Alkaline Phosphatase 73 U/L (46-116) Total Protein 5.9 g/dL (6.4-8.2) Albumin 1.5 g/dL (3.4-5.0) Albumin/Globulin Ratio 0.3 (1.0-1.7) Lipase 459 U/L (73-393) Test 01/15/18 08:10 O2 Saturation 87 % (92-99) Arterial Blood pH 7.25 (7.35-7.45) Arterial Blood pCO2 at Patient Temp 48 mmHg (35-46) Arterial Blood pO2 at Patient Temp 54 mmHg (75-108) Arterial Blood HCO3 20 mmol/L (21-28) Arterial Blood Base Excess -7 mmol/L (-3-3) FiO2 [address] Impression: 1. There is evidence of pancreatitis, diffuse inflammatory change associated with the enlarged pancreas. 2. There is prominent colonic wall thickening of the ascending colon and hepatic flexure and questionably minimally of the descending colon, evidence of colitis. There is minimal nonspecific free fluid more eccentric to the right abdomen. 3. There is diffuse hepatic steatosis and hepatomegaly. 4. There are infiltrates of the lower lobes bilaterally at the lung bases and also the visualized posterior aspect of the right upper lobe. There is very minimal left pleural effusion. 5. There is a small nonobstructive left renal calculus. Microbiology 01/11/18 Blood Culture - Preliminary, Resulted NO GROWTH AFTER 1 DAY Objective Assessment Pancreatitis Fever likely sec to above/+- aspiration/? infection - better DENISHA - worse Aspiration pneumonia.- Group A strep/Strep pneumo/legionella neg. Gram stain from sputum GPC in pairs from 01/12 Acute encephalopathy with hallucinations and behavioral change Lactic acidosis, improved. Heavy alcohol use. Hyperglycemia. Worsening back pain with urinary incontinence prior to admission. History of methicillin-resistant Staphylococcus aureus. Morbid obesity Plan Plan of Care Cont Zosyn to 2.25 IV q 8/Doxy D/c Zyvox F/u Sputum culture BC in process Monitor labs in am/temp D/w nursing Critically ill BENITO GEIGER MD Jan 15, 2018 12:07
[2018-01-15] MEDS: TPN PER PHARMACY MC PRN ×2 (12:51→12:59)
[2018-01-15] MEDS: LABETALOL 20 MG/4 ML DISP.SYRIN. IVP PRN (17:40)
[2018-01-15] MEDS: ACETAMINOPHEN 650 MG/20.3 ML SOLUTION. PEG PRN (20:57)
[2018-01-15] MEDS ORDERED: TOTAL PARENTERAL NUTRITION IV SCH ×24 (22:00)
[2018-01-15] MEDS ORDERED: [UNRECOGNIZED DRUG - OTHER] IV SCH ×12 (22:00)
[2018-01-15] MEDS ORDERED: AMINO ACIDS IV SCH ×24 (22:00)
[2018-01-15] MEDS ORDERED: DEXTROSE 70% IV SCH ×24 (22:00)
[2018-01-15] MEDS ORDERED: [UNRECOGNIZED DRUG - OTHER] IV SCH ×12 (22:00)
[2018-01-16] VITALS (26 sets, daily range): BP systolic 112–222; BP diastolic 63–116
[2018-01-16] MEDS: MIDAZOLAM 100mg/100ml NS BAG 100 ML IV PRN ×2 (00:04→04:52)
[2018-01-16] MEDS: DEXMEDETOMIDINE 200 MCG in IV NORMAL SALINE 50ML 48 ML IV PRN ×12 (00:04→23:03)
[2018-01-16] MEDS: INSULIN LISPRO 300 UNITS/3 ML INSULN.PEN. SQ SCH ×4 (00:05→17:34)
[2018-01-16] MEDS: IV NORMAL SALINE 1000ML BAG 1,000 ML IV SCH (03:59)
[2018-01-16 05:51] LABS: CALCIUM 8.5 mg/dL (8.5-10.1); CREATININE 5.7 mg/dL (0.7-1.3); GFR 10.9; MAGNESIUM 1.6 mg/dL (1.8-2.4); PHOSPHORUS 4.5 mg/dL (2.6-4.7); POTASSIUM 4.3 mmol/L (3.5-5.1)
[2018-01-16] MEDS: PIPERACILLIN/TAZOBACTAM 2.25 GM in IV NORMAL SALINE 50ML 50 ML IV SCH (05:59)
[2018-01-16] MEDS: HEPARIN for SUB-Q USE 5,000 UNIT/ML VIAL. SQ SCH ×3 (06:08→21:50)
[2018-01-16] MEDS: IPRATRPIUM/ALBUTEROL 0.5/2.5MG 3 ML NEBU. NEB SCH ×4 (07:10→19:41)
[2018-01-16 07:14] LABS: BASE EXCESS ABG -4 mmol/L (-3-3); HCO3 ABG 21 mmol/L (21-28); PCO2 ABG 40 mmHg (35-46); PO2 ABG 121 mmHg (75-108); SAT O2 ABG 98 % (92-99)
--- NOTE | 2018-01-16 07:28 | PDOC ---
PROGRESS NOTES Chief Complaint Chief Complaint 1. Acute respiratory failure. 2. etoh intoxication versus dependence, not protecting airway hence intubated at the emergency room 2. LLL pneumonia. 3. Sepsis - LLL pneumonia 4. Severe agitation, could be secondary to alcohol withdrawal versus sepsis versus others. 5. Hyperglycemia, with HYPERTRIGLYCERIDEMIA 6. Elevated BNP and troponin elevation 7. History of alcohol abuse. 8. Obesity BMI 39 - poss obstructive sleep apnea-hypopnea syndrome. History of Present Illness History of Present Illness Admitted with hallucinations and combative, was intubated soon after admission. Ketonuria on UA Intubated sedated, father states this is likely polysubstance abuse withdrawal Overnight: Required vecuronium x2 for agitation vent dysynchrony overnight, Creatinine 5.7 this morning but making significant urine, sodium 149 and mag 1.6 , Triglycerides are high and lipase. Glucose better. Temp now 100.7F, cultures. With even small decrease in versed he becomes combative, but moves all extremities. No BM since 01/08, but has had nothing PO. Stable on TPN A/P: Acute respiratory failure - 22/550/50% peep 7, appears to be developing PNA in LL on CXR, on zyvox. Fever this morning again, blood cultures Etoh intoxication versus dependence, not protecting airway hence intubated at the emergency room - no fevers for 2 days, could consider wean if he would comply with sedation reduction LLL pneumonia - changed to zyvox Sepsis - LLL pneumonia - cont fluids, will change to D5 1/2NSS Acute renal failure - Cr 1.4-->5.7 - likely from sepsis, hypotension, ATN? Nephrology following, may need HD in the near future, but making urine Severe agitation, could be secondary to alcohol withdrawal versus sepsis versus others. Did paralyze 01/13/18 overnight and 01/15/18 overnight, opens eyes with any weaning Hyperglycemia, with HYPERTRIGLYCERIDEMIA - insulin GTT. TPN with his his elevated lipase Elevated BNP and troponin elevation - likely from sepsis - cardiology seeing History of alcohol abuse - on precedex, versed, fentanyl for likely withdrawal Obesity BMI 39 - poss obstructive sleep apnea-hypopnea syndrome. Heparin SQ Already on PPI IV nutrition consult for tube feeds-->TPN We will need alcohol rehabilitation referrals once extubated Supportive care Further conditions pending course. Met with his father, he is acutely worsening He continues with fevers and combative behavior, difficult disposition, he is very ill Vitals Vitals Vital Signs Date Time Temp Pulse Resp B/P (MAP) Pulse Ox O2 Delivery O2 Flow Rate FiO2 01/16/18 07:03 100 Ventilator 01/16/18 06:00 90 26 157/85 (109) 01/16/18 04:00 100.8 100.8 Physical Exam Physical Exam GENERAL: sedated and intubated. HEENT: Pupils small and equal. ETT and NGT in place. NECK: Supple/ No JVD LUNGS: Diminished aeration in the bases. HEART: Regular rhythm. ABDOMEN: Obese. Hypoactive bowel sounds, soft, no grimace or guarding to palpation. GENITOURINARY: Indwelling Cook in place. EXTREMITIES: 1 plus edema or cyanosis. SKIN: He has tattoos. Warm, Multiple small scabs on both legs. NEUROLOGIC: Unresponsive/sedated. RIJ - clean. PIV clean General: Other (sedated on a ventilator.) Heart: Regular rate Lungs: Other (decrease bs) Abdomen: Normal bowel sounds Extremities: No clubbing, No cyanosis, No edema, Normal pulses Skin: No rashes, No breakdown Labs LABS Laboratory Tests Test 01/15/18 08:10 01/15/18 12:14 01/15/18 17:50 01/16/18 00:02 O2 Saturation 87 % (92-99) Arterial Blood pH 7.25 (7.35-7.45) Arterial Blood pCO2 at Patient Temp 48 mmHg (35-46) Arterial Blood pO2 at Patient Temp 54 mmHg (75-108) Arterial Blood HCO3 20 mmol/L (21-28) Arterial Blood Base Excess -7 mmol/L (-3-3) FiO2 50 Glucose (Fingerstick) 248 mg/dL (70-99) 208 mg/dL (70-99) 191 mg/dL (70-99) Test 01/16/18 04:45 01/16/18 05:56 Sodium Level 149 mmol/L (136-145) Potassium Level 4.3 mmol/L (3.5-5.1) Chloride Level 112 mmol/L (98-107) Carbon Dioxide Level 23 mmol/L (21-32) Anion Gap 14 (6-14) Blood Urea Nitrogen 49 mg/dL (8-26) Creatinine 5.7 mg/dL (0.7-1.3) Estimated GFR (Cockcroft-Gault) 10.9 Glucose Level 280 mg/dL (70-99) Calcium Level 8.5 mg/dL (8.5-10.1) Phosphorus Level 4.5 mg/dL (2.6-4.7) Magnesium Level 1.6 mg/dL (1.8-2.4) Glucose (Fingerstick) 243 mg/dL (70-99) Assessment and Plan Assessmemt and Plan Problems Medical Problems: (1) Diabetic keto-acidosis Status: Acute (2) Hyperglycemia due to type 2 diabetes mellitus Status: Acute (3) Metabolic acidemia Status: Acute (4) Metabolic encephalopathy Status: Acute Comment Review of Relevant I have reviewed the following items franklyn (where applicable) has been applied. Labs Laboratory Tests Test 01/14/18 07:45 01/14/18 17:15 01/14/18 23:32 01/15/18 05:30 O2 Saturation 94 % (92-99) Arterial Blood pH 7.24 (7.35-7.45) Arterial Blood pCO2 at Patient Temp 47 mmHg (35-46) Arterial Blood pO2 at Patient Temp 66 mmHg (75-108) Arterial Blood HCO3 20 mmol/L (21-28) Arterial Blood Base Excess -8 mmol/L (-3-3) FiO2 50 Glucose (Fingerstick) 188 mg/dL (70-99) 247 mg/dL (70-99) White Blood Count 6.3 x10^3/uL (4.0-11.0) Red Blood Count 3.03 x10^6/uL (4.30-5.70) Hemoglobin 10.0 g/dL (13.0-17.5) Hematocrit 30.1 % (39.0-53.0) Mean Corpuscular Volume 99 fL (79-100) Mean Corpuscular Hemoglobin 33 pg (25-35) Mean Corpuscular Hemoglobin Concent 33 g/dL (31-37) Red Cell Distribution Width 14.4 % (11.5-14.5) Platelet Count 172 x10^3/uL (140-400) Neutrophils (%) (Auto) 76 % (31-73) Lymphocytes (%) (Auto) 9 % (24-48) Monocytes (%) (Auto) 10 % (0-9) Eosinophils (%) (Auto) 5 % (0-3) Basophils (%) (Auto) 0 % (0-3) Neutrophils # (Auto) 4.8 x10^3uL (1.8-7.7) Lymphocytes # (Auto) 0.5 x10^3/uL (1.0-4.8) Monocytes # (Auto) 0.6 x10^3/uL (0.0-1.1) Eosinophils # (Auto) 0.3 x10^3/uL (0.0-0.7) Basophils # (Auto) 0.0 x10^3/uL (0.0-0.2) Sodium Level 147 mmol/L (136-145) Potassium Level 3.8 mmol/L (3.5-5.1) Chloride Level 110 mmol/L (98-107) Carbon Dioxide Level 24 mmol/L (21-32) Anion Gap 13 (6-14) Blood Urea Nitrogen 42 mg/dL (8-26) Creatinine 6.1 mg/dL (0.7-1.3) Estimated GFR (Cockcroft-Gault) 10.1 BUN/Creatinine Ratio 7 (6-20) Glucose Level 270 mg/dL (70-99) Calcium Level 7.5 mg/dL (8.5-10.1) Phosphorus Level 3.9 mg/dL (2.6-4.7) Magnesium Level 1.6 mg/dL (1.8-2.4) Total Bilirubin 0.7 mg/dL (0.2-1.0) Aspartate Amino Transf (AST/SGOT) 20 U/L (15-37) Alanine Aminotransferase (ALT/SGPT) 22 U/L (16-63) Alkaline Phosphatase 73 U/L (46-116) Total Protein 5.9 g/dL (6.4-8.2) Albumin 1.5 g/dL (3.4-5.0) Albumin/Globulin Ratio 0.3 (1.0-1.7) Lipase 459 U/L (73-393) Test 01/15/18 05:40 01/15/18 08:10 01/15/18 12:14 01/15/18 17:50 Glucose (Fingerstick) 261 mg/dL (70-99) 248 mg/dL (70-99) 208 mg/dL (70-99) O2 Saturation 87 % (92-99) Arterial Blood pH 7.25 (7.35-7.45) Arterial Blood pCO2 at Patient Temp 48 mmHg (35-46) Arterial Blood pO2 at Patient Temp 54 mmHg (75-108) Arterial Blood HCO3 20 mmol/L (21-28) Arterial Blood Base Excess -7 mmol/L (-3-3) FiO2 50 Test 01/16/18 00:02 01/16/18 04:45 01/16/18 05:56 Glucose (Fingerstick) 191 mg/dL (70-99) 243 mg/dL (70-99) Sodium Level 149 mmol/L (136-145) Potassium Level 4.3 mmol/L (3.5-5.1) Chloride Level 112 mmol/L (98-107) Carbon Dioxide Level 23 mmol/L (21-32) Anion Gap 14 (6-14) Blood Urea Nitrogen 49 mg/dL (8-26) Creatinine 5.7 mg/dL (0.7-1.3) Estimated GFR (Cockcroft-Gault) 10.9 Glucose Level 280 mg/dL (70-99) Calcium Level 8.5 mg/dL (8.5-10.1) Phosphorus Level 4.5 mg/dL (2.6-4.7) Magnesium Level 1.6 mg/dL (1.8-2.4) Laboratory Tests Test 01/15/18 08:10 01/15/18 12:14 01/15/18 17:50 01/16/18 00:02 O2 Saturation 87 % (92-99) Arterial Blood pH 7.25 (7.35-7.45) Arterial Blood pCO2 at Patient Temp 48 mmHg (35-46) Arterial Blood pO2 at Patient Temp 54 mmHg (75-108) Arterial Blood HCO3 20 mmol/L (21-28) Arterial Blood Base Excess -7 mmol/L (-3-3) FiO2 50 Glucose (Fingerstick) 248 mg/dL (70-99) 208 mg/dL (70-99) 191 mg/dL (70-99) Test 01/16/18 04:45 01/16/18 05:56 Sodium Level 149 mmol/L (136-145) Potassium Level 4.3 mmol/L (3.5-5.1) Chloride Level 112 mmol/L (98-107) Carbon Dioxide Level 23 mmol/L (21-32) Anion Gap 14 (6-14) Blood Urea Nitrogen 49 mg/dL (8-26) Creatinine 5.7 mg/dL (0.7-1.3) Estimated GFR (Cockcroft-Gault) 10.9 Glucose Level 280 mg/dL (70-99) Calcium Level 8.5 mg/dL (8.5-10.1) Phosphorus Level 4.5 mg/dL (2.6-4.7) Magnesium Level 1.6 mg/dL (1.8-2.4) Glucose (Fingerstick) 243 mg/dL (70-99) Microbiology 01/11/18 Blood Culture - Preliminary, Resulted NO GROWTH AFTER 4 DAYS 01/13/18 Throat Culture - Final, Complete 01/13/18 - Final, Complete Medications Current Medications Lorazepam (Ativan) 1 mg 1X ONCE IV Last administered on 01/11/18at 12:25; Start 01/11/18 at 12:30; Stop 01/11/18 at 12:31; Status DC Lorazepam (Ativan) 2 mg 1X ONCE IV Last administered on 01/11/18at 13:03; Start 01/11/18 at 12:45; Stop 01/11/18 at 12:46; Status DC Dextrose/Sodium Chloride 1,000 ml @ 0 mls/hr 1X ONCE IV ; Start 01/11/18 at 13:00; Stop 01/11/18 at 13:16; Status DC Sodium Chloride 1,000 ml @ 1,000 mls/hr 1X ONCE IV Last administered on 01/11at 13:41; Start 01/11/18 at 13:30; Stop 01/11/18 at 14:29; Status DC Sodium Chloride 1,000 ml @ 1,000 mls/hr 1X ONCE IV Last administered on 01/11at 13:42; Start 01/11/18 at 13:30; Stop 01/11/18 at 14:29; Status DC Lorazepam (Ativan) 1 mg 1X ONCE IV Last administered on 01/11/18at 15:08; Start 01/11/18 at 13:30; Stop 01/11/18 at 13:31; Status DC Lorazepam (Ativan) 1 mg 1X ONCE IV Last administered on 01/11/18at 13:43; Start 01/11/18 at 13:30; Stop 01/11/18 at 13:33; Status DC Aspirin (Children'S Aspirin) 324 mg 1X ONCE PO Last administered on at 14:02; Start 01/11/18 at 13:45; Stop 01/11/18 at 13:46; Status DC Haloperidol Lactate (Haldol Inj) 5 mg PRN Q6HRS PRN IVP SEVERE AGITATION Last administered on 01/15/18at 10:01; Start 01/11/18 at 16:15 Lorazepam (Ativan) 4 mg PRN Q4HRS PRN IV ANXIETY / AGITATION Last administered on 01/15/18at 12:34; Start 01/11/18 at 16:15 Multivitamins 10 ml/Thiamine HCl 100 mg/Folic Acid 1 mg/Sodium Chloride 1,011.2 ml @ 125 mls/ hr DAILY IV Last administered on 01/14/18at 08:19; Start at 17:00; Stop 01/14/18 at 21:59; Status DC Dexmedetomidine HCl 200 mcg/ Sodium Chloride 50 ml @ 0 mls/hr CONT PRN IV PER PROTOCOL Last administered on 01/11/18at 17:00; Start 01/11/18 at 16:45; Stop 01/11/18 at 18:38; Status DC Sodium Chloride 500 ml @ 500 mls/hr 1X PRN PRN IV SEE COMMENTS; Start at 16:45 Atropine Sulfate (ATROPINE 0.5mg SYRINGE) 0.5 mg PRN Q5MIN PRN IV SEE COMMENTS ; Start 01/11/18 at 16:45 Lorazepam (Ativan) 4 mg PRN Q1HR PRN PO For CIWA 8-14; Start 01/11/18 at 18:15 Lorazepam (Ativan) 8 mg PRN Q1HR PRN PO For CIWA 15 or greater; Start at 18:15 Lorazepam (Ativan) 2 mg PRN Q1HR PRN IV For CIWA 8-14; Start 01/11/18 at 18:15 Lorazepam (Ativan) 4 mg PRN Q1HR PRN IV For CIWA 15 or greater Last administered on 01/15/18at 23:04; Start 01/11/18 at 18:15 Diphenhydramine HCl (Benadryl) 25 mg PRN Q15MIN PRN IVP EPS symptoms 2'Haldol admin; Start 01/11/18 at 18:15 Olanzapine (ZyPREXA IM) 10 mg 1X ONCE IM Last administered on 01/11/18at 18:42 ; Start 01/11/18 at 18:45; Stop 01/11/18 at 18:46; Status DC Dexmedetomidine HCl 200 mcg/ Sodium Chloride 50 ml @ 7 mls/hr CONT PRN IV PER PROTOCOL; Start 01/11/18 at 18:38; Stop 01/11/18 at 21:19; Status DC Propofol 100 ml @ As Directed STK-MED ONCE IV ; Start 01/11/18 at 18:43; Stop 01/11/18 at 18:44; Status DC Succinylcholine Chloride (Anectine) 200 mg STK-MED ONCE .ROUTE ; Start at 18:44; Stop 01/11/18 at 18:45; Status DC Fentanyl Citrate 30 ml @ 2.5 mls/hr CONT PRN IV PER PROTOCOL Last administered on 01/16/18at 04:11; Start 01/11/18 at 19:00 Propofol 100 ml @ 4.2 mls/hr CONT PRN IV PER PROTOCOL; Start 01/11/18 at 18: 45; Status Cancel Fentanyl Citrate (Fentanyl 2ml Vial) 25 mcg PRN Q1HR PRN IV SEE COMMENTS.; Start 01/11/18 at 18:45 Fentanyl Citrate (Fentanyl 2ml Vial) 50 mcg PRN Q1HR PRN IV SEE COMMENTS. Last administered on 01/11/18at 20:21; Start 01/11/18 at 18:45 Morphine Sulfate (Morphine Sulfate) 2 mg PRN Q1HR PRN IV SEE COMMENTS.; Start 01/11/18 at 18:45 Morphine Sulfate (Morphine Sulfate) 4 mg PRN Q1HR PRN IV SEE COMMENTS.; Start 01/11/18 at 18:45 Hydromorphone HCl (Dilaudid) 0.2 mg PRN Q1HR PRN IV SEE COMMENTS.; Start 01/11 at 18:45 Hydromorphone HCl (Dilaudid) 0.4 mg PRN Q1HR PRN IV SEE COMMENTS.; Start 01/11 at 18:45 Morphine Sulfate (Morphine Sulfate) 2 mg PRN Q1HR PRN IV ; Start 01/11/18 at 18:45; Status UNV Morphine Sulfate (Morphine Sulfate) 4 mg PRN Q1HR PRN IV ; Start 01/11/18 at 18:45; Status UNV Midazolam HCl 100 ml @ 1 mls/hr CONT PRN IV PER PROTOCOL Last administered on 01/16/18at 04:52; Start 01/11/18 at 18:45 Epinephrine HCl (EPINEPHrine SYRINGE) 1 mg STK-MED ONCE .ROUTE ; Start at 18:56; Stop 01/11/18 at 18:57; Status DC Propofol 100 ml @ 2.103 mls/ hr CONT PRN IV SEE I/O RECORD Last administered on 01/11/18at 20:23; Start 01/11/18 at 19:00 Vecuronium [place] (Norcuron Bolus) 10 mg STK-MED ONCE IV ; Start 01/11/18 at 19:02; Stop 01/11/18 at 19:03; Status DC Vancomycin HCl (Vanco Per Pharmacy) 1 each PRN DAILY PRN MC SEE COMMENTS Last administered on 01/12/18at 11:47; Start 01/11/18 at 20:15; Stop 01/12/18 at 13 :14; Status DC Piperacillin Sod/ Tazobactam Sod (Zosyn Per Pharmacy) 1 each PRN DAILY PRN MC SEE COMMENTS; Start 01/11/18 at 20:15; Stop 01/13/18 at 08:00; Status DC Piperacillin Sod/ Tazobactam Sod 4.5 gm/Sodium Chloride 100 ml @ 200 mls/hr Q6HRS IV Last administered on 01/13/18at 06:48; Start 01/12/18 at 00:00; Stop 01/13/18 at 07:57; Status DC Vancomycin HCl 2 gm/Sodium Chloride 500 ml @ 250 mls/hr 1X ONCE IV Last administered on 01/11/18at 21:00; Start 01/11/18 at 21:00; Stop 01/11/18 at 22 :59; Status DC Insulin Human Lispro (HumaLOG) 0-7 UNITS Q6HRS SQ Last administered on at 06:00; Start 01/12/18 at 00:00 Dextrose (Dextrose 50%-Water Syringe) 12.5 gm PRN Q15MIN PRN IV SEE COMMENTS; Start 01/11/18 at 21:00 Sodium Chloride 1,000 ml @ 100 mls/hr Q10H IV Last administered on 01/16/18at 03:59; Start 01/11/18 at 21:00 Dexmedetomidine HCl 200 mcg/ Sodium Chloride 50 ml @ 0 mls/hr CONT PRN IV PER PROTOCOL Last administered on 01/16/18at 06:43; Start 01/11/18 at 21:00 Acetaminophen (Tylenol) 650 mg PRN Q6HRS PRN PEG MILD PAIN / TEMP Last administered on 01/15/18at 20:57; Start 01/11/18 at 21:30 Magnesium Sulfate 50 ml @ 25 mls/hr 1X ONCE IV Last administered on at 01:27; Start 01/12/18 at 01:00; Stop 01/12/18 at 02:59; Status DC Sodium Chloride 1,000 ml @ 1,000 mls/hr 1X ONCE IV Last administered on 01/12at 01:00; Start 01/12/18 at 04:30; Stop 01/12/18 at 05:29; Status DC Vancomycin HCl 1.5 gm/Sodium Chloride 500 ml @ 250 mls/hr Q12H IV Last administered on 01/12/18at 08:44; Start 01/12/18 at 09:00; Stop 01/12/18 at 13 :14; Status DC Vancomycin HCl (Vancomycin Trough Level) 1 each 1X ONCE MC ; Start 01/12/18 at 20:30; Stop 01/12/18 at 20:30; Status DC Sodium Chloride 500 ml @ 500 mls/hr 1X ONCE IV Last administered on at 07:26; Start 01/12/18 at 07:00; Stop 01/12/18 at 07:59; Status DC Famotidine (Pepcid Vial) 20 mg BID IVP Last administered on 01/13/18at 20:49; Start 01/12/18 at 09:00; Stop 01/14/18 at 09:40; Status DC Albuterol/ Ipratropium (Duoneb) 3 ml RTQID NEB Last administered on 01/16/18at 07:10; Start 01/12/18 at 08:00 Heparin Sodium (Porcine) (Heparin Sodium) 5,000 unit Q8HRS SQ Last administered on 01/16/18at 06:08; Start 01/12/18 at 14:00 Gemfibrozil (Lopid) 600 mg BIDBFRMEAL PO Last administered on 01/15/18at 16:37 ; Start 01/12/18 at 10:00 Linezolid/Dextrose 300 ml @ 300 mls/hr Q12HR IV Last administered on at 08:39; Start 01/12/18 at 21:00; Stop 01/15/18 at 12:06; Status DC Vecuronium [place] (Norcuron Bolus) 10 mg STK-MED ONCE IV ; Start 01/11/18 at 19:00; Stop 01/13/18 at 07:59; Status DC Succinylcholine Chloride (Anectine) 200 mg STK-MED ONCE .ROUTE ; Start at 19:00; Stop 01/13/18 at 07:59; Status DC Propofol (Diprivan) 1,000 mg STK-MED ONCE IV ; Start 01/11/18 at 19:00; Stop 01/13/18 at 07:59; Status DC Epinephrine HCl (EPINEPHrine SYRINGE) 1 mg STK-MED ONCE .ROUTE ; Start at 19:00; Stop 01/13/18 at 07:59; Status DC Piperacillin Sod/ Tazobactam Sod 2.25 gm/Sodium Chloride 50 ml @ 100 mls/hr Q8HRS IV Last administered on 01/16/18at 05:59; Start 01/13/18 at 14:00 Doxycycline Hyclate 100 mg/ Dextrose 100 ml @ 50 mls/hr Q12HR IV Last administered on 01/15/18at 21:03; Start 01/13/18 at 09:00 Sodium Bicarbonate (Sodium Bicarb Adult 8.4% Syr) 100 meq 1X ONCE IV Last administered on 01/13/18at 09:12; Start 01/13/18 at 09:15; Stop 01/13/18 at 09 :16; Status DC Sodium Chloride 1,000 ml @ 1,000 mls/hr Q1H IV ; Start 01/13/18 at 12:30; Status Cancel Sodium Chloride 1,000 ml @ 1,000 mls/hr 1X ONCE IV Last administered on 01/13at 12:15; Start 01/13/18 at 12:15; Stop 01/13/18 at 13:14; Status DC Vecuronium [place] (Norcuron Bolus) 6 mg PRN Q6HRS PRN IV VENT ASYNCHRONY Last administered on 01/15/18at 10:23; Start 01/13/18 at 12:30; Stop 01/15/18 at 14 :51; Status DC Info (Tpn Per Pharmacy) 1 each PRN DAILY PRN MC SEE COMMENTS Last administered on 01/15/18at 12:59; Start 01/14/18 at 09:45 Famotidine (Pepcid Vial) 20 mg DAILY IVP Last administered on 01/15/18at 08:40 ; Start 01/15/18 at 09:00 Sodium Bicarbonate (Sodium Bicarb Adult 8.4% Syr) 50 meq STK-MED ONCE .ROUTE ; Start 01/14/18 at 11:12; Stop 01/14/18 at 11:13; Status DC Labetalol HCl (Normodyne Iv Push) 10 mg PRN Q4HRS PRN IVP HYPERTENSION, SEE COMMENTS Last administered on 01/15/18at 17:40; Start 01/14/18 at 11:30 Sodium Bicarbonate (Sodium Bicarb Adult 8.4% Syr) 100 meq 1X ONCE IV Last administered on 01/14/18at 11:34; Start 01/14/18 at 11:30; Stop 01/14/18 at 11 :31; Status DC Sodium Chloride 45 meq/Sodium Acetate 45 meq/ Potassium Chloride 30 meq/ Potassium Phosphate 6.8 mmol/Magnesium Sulfate 10 meq/ Calcium Gluconate 10 meq / Multivitamins 10 ml/Chromium/ Copper/Manganese/ Seleni/Zn 1 ml/ Thiamine HCl 100 mg/Folic Acid 1 mg/Total Julieta... 1,512 ml @ 63 mls/hr TPN CONT IV Last administered on 01/14/18at 21:37; Start 01/14/18 at 22:00; Stop 01/15/18 at 21:59; Status DC Labetalol HCl (Normodyne Iv Push) 20 mg PRN Q2HR PRN IVP HYPERTENSION, SEE COMMENTS; Start 01/14/18 at 15:30 Multivitamins 10 ml/Thiamine HCl 100 mg/Folic Acid 1 mg/Sodium Chloride 1,011.2 ml @ 1,000.088 mls/hr 1X ONCE IV ; Start 01/15/18 at 08:15; Stop 01/15/18 at 09:15; Status UNV Sodium Chloride 1,000 ml @ 1,000 mls/hr Q1H PRN IV hypotension; Start at 09:06; Stop 01/15/18 at 09:32; Status DC Albumin Human 200 ml @ 200 mls/hr 1X ONCE IV ; Start 01/15/18 at 09:15; Stop 01/15/18 at 09:32; Status DC Acetaminophen (Tylenol) 500 mg 1X PRN PRN PO MILD PAIN / TEMP; Start 01/15/18 at 09:15; Stop 01/15/18 at 09:32; Status DC Diphenhydramine HCl (Benadryl) 25 mg 1X PRN PRN IV ITCHING; Start 01/15/18 at 09:15; Stop 01/15/18 at 09:32; Status DC Pharmacy Consult (C.diff Med Screen By Rx) 1 each PRN 1X PRN MC SEE COMMENTS; Start 01/15/18 at 09:30; Status Cancel Sodium Chloride 1,000 ml @ 400 mls/hr Q2H30M PRN IV PATENCY; Start 01/15/18 at 09:06; Stop 01/15/18 at 09:32; Status DC Info (PHARMACY MONITORING -- do not chart) 1 each PRN DAILY PRN MC SEE COMMENTS ; Start 01/15/18 at 09:15 Sodium Acetate 75 meq/Potassium Chloride 30 meq/ Potassium Phosphate 6.8 mmol/ Magnesium Sulfate 13 meq/ Calcium Gluconate 10 meq/ Multivitamins 10 ml/Chromium / Copper/Manganese/ Seleni/Zn 1 ml/ Thiamine HCl 100 mg/Folic Acid 1 mg/Total Parenteral Nutrition/Amino Acids/Dextro... 1,492 ml @ 62.167 mls/ hr TPN CONT IV ; Start 01/15/18 at 22:00; Stop 01/15/18 at 22:00; Status DC Sodium Acetate 75 meq/Potassium Chloride 30 meq/ Potassium Phosphate 6.8 mmol/ Magnesium Sulfate 13 meq/ Calcium Gluconate 10 meq/ Multivitamins 10 ml/Chromium / Copper/Manganese/ Seleni/Zn 1 ml/ Thiamine HCl 100 mg/Folic Acid 1 mg/Total Parenteral Nutrition/Amino Acids/Dextro... 1,512 ml @ 63 mls/hr TPN CONT IV Last administered on 01/15/18at 22:07; Start 01/15/18 at 22:00; Stop 01/16/18 at 21:59 Vecuronium [place] (Norcuron Bolus) 6 mg PRN Q4HRS PRN IV VENT ASYNCHRONY Last administered on 01/15/18at 23:27; Start 01/15/18 at 15:00 Active Scripts Active Reported [hemp botanicals] Maxitrol Eye Drops ([place]andon/Polymyx B Sulf/Dexameth) 5 Ml Drops.susp 1 Drop OD QID Multivitamins (Multivitamin) 1 Each Tablet 1 Tab PO DAILY Magnesium (Magnesium Oxide) 400 Mg Capsule 1 Cap PO DAILY Calcium (Calcium Carbonate) 500 Mg Tab.chew 500 Mg PO Lansoprazole 30 Mg Capsule.dr 1 Cap PO DAILY Losartan Potassium 25 Mg Tablet 25 Mg PO DAILY Tizanidine Hcl 4 Mg Tablet 1 Tab PO TID Tramadol Hcl 50 Mg Tablet 50 Mg PO DAILY PRN Bystolic (Nebivolol Hcl) 20 Mg Tablet 20 Mg PO DAILY Cymbalta (Duloxetine Hcl) 20 Mg Capsule.dr 1 Cap PO DAILY Valacyclovir (Valacyclovir Hcl) 1,000 Mg Tablet 1 Tab PO DAILY Ibuprofen 400 Mg Tablet 400 Mg PO PRN Q6HRS PRN Bystolic (Nebivolol) 10 Mg Tablet 20 Mg PO DAILY Amlodipine Besylate 10 Mg Tablet 10 Mg PO DAILY Vitals/I & O Vital Sign - Last 24 Hours 01/15/18 01/15/18 01/15/18 01/15/18 07:37 08:00 08:00 09:00 Pulse 100 99 Resp B/P (MAP) 130/76 (94) 131/81 (98) Pulse Ox 100 99 100 O2 Delivery Ventilator Mechanical Ventilator Ventilator Ventilator 01/15/18 01/15/18 01/15/18 01/15/18 09:39 10:00 11:00 11:52 Pulse 99 110 Resp B/P (MAP) 128/89 (102) 181/87 (118) Pulse Ox 100 99 96 100 O2 Delivery Ventilator Ventilator Ventilator Ventilator 01/15/18 01/15/18 01/15/18 01/15/18 12:00 12:00 13:00 14:00 Temp 100.7 100.7 Pulse 107 97 97 Resp 26 26 B/P (MAP) 121/77 (92) 111/65 (80) 129/80 (96) Pulse Ox 95 98 99 O2 Delivery Mechanical Ventilator Ventilator Ventilator Ventilator 01/15/18 01/15/18 01/15/18 01/15/18 15:00 16:00 16:00 16:01 Temp 100.9 100.9 Pulse 103 113 B/P (MAP) 156/114 (128) 166/91 (116) Pulse Ox 96 98 100 O2 Delivery Ventilator Ventilator Mechanical Ventilator Ventilator 01/15/18 01/15/18 01/15/18 01/15/18 17:00 17:40 17:52 18:00 Pulse 115 105 109 Resp B/P (MAP) 180/112 (134) 180/92 201/99 (133) Pulse Ox 97 100 95 O2 Delivery Ventilator Ventilator Ventilator 01/15/18 01/15/18 01/15/18 01/15/18 19:00 19:40 20:00 20:00 Temp 101.1 101.1 Pulse 96 96 B/P (MAP) 171/81 (111) 165/80 (108) Pulse Ox 100 100 100 O2 Delivery Ventilator Ventilator Ventilator Mechanical Ventilator 01/15/18 01/15/18 01/15/18 01/15/18 21:00 22:00 23:00 23:01 Pulse 90 104 98 Resp B/P (MAP) 152/84 (106) 146/79 (101) 143/84 (103) Pulse Ox 100 100 100 100 O2 Delivery Ventilator Ventilator Ventilator Ventilator 01/16/18 01/16/18 01/16/18 01/16/18 00:00 00:00 01:00 02:00 Temp 101.2 101.2 Pulse 105 111 100 Resp B/P (MAP) 158/84 (108) 173/96 (121) 154/80 (104) Pulse Ox 93 94 95 O2 Delivery Mechanical Ventilator Ventilator Ventilator Ventilator 01/16/18 01/16/18 01/16/18 01/16/18 02:00 03:00 04:00 04:00 Temp 100.8 100.8 Pulse 90 93 B/P (MAP) 140/81 (100) 174/84 (114) Pulse Ox 96 99 99 O2 Delivery Ventilator Ventilator Mechanical Ventilator Ventilator 10/18/18 01/16/18 01/16/18 01/16/18 04:04 05:00 05:28 06:00 Pulse 89 90 Resp 26 26 B/P (MAP) 157/80 (105) 157/85 (109) Pulse Ox 98 100 98 100 O2 Delivery Ventilator Ventilator Ventilator Ventilator 01/16/18 07:03 Pulse Ox 100 O2 Delivery Ventilator Intake and Output 01/15/18 01/15/18 01/16/18 15:00 23:00 07:00 Intake Total 450 ml 2612.90 ml 2325 ml Output Total 1905 ml 2010 ml 2065 ml Balance -1455 ml 602.90 ml 260 ml JOSE APPIAH MD Jan 16, 2018 07:28
[2018-01-16] MEDS: GEMFIBROZIL 600 MG TABLET. PO SCH ×2 (07:30→15:09)
--- NOTE | 2018-01-16 07:32 | PDOC ---
Infectious Disease Note Subjective Subjective Intubated/sedated ROS ROS unobtainable Vital Sign Vital Signs Vital Signs Date Time Temp Pulse Resp B/P (MAP) Pulse Ox O2 Delivery O2 Flow Rate FiO2 01/16/18 07:03 100 Ventilator 01/16/18 06:00 90 26 157/85 (109) 01/16/18 04:00 100.8 100.8 Physical Exam PHYSICAL EXAM GENERAL: sedated and intubated. HEENT: Pupils equal and reactive. ETT and NGT in place. NECK: Supple/ No JVD LUNGS: Diminished aeration in the bases. HEART: Regular rhythm. ABDOMEN: Obese. Hypoactive bowel sounds, soft, no grimace or guarding to palpation. GENITOURINARY: Indwelling Cook in place. EXTREMITIES: 1 plus edema or cyanosis. SKIN: He has tattoos. Warm, Multiple small scabs on both legs. NEUROLOGIC: Unresponsive/sedated. RIJ - clean. PIV clean Labs Lab Laboratory Tests Test 01/15/18 08:10 01/15/18 12:14 01/15/18 17:50 01/16/18 00:02 O2 Saturation 87 % (92-99) Arterial Blood pH 7.25 (7.35-7.45) Arterial Blood pCO2 at Patient Temp 48 mmHg (35-46) Arterial Blood pO2 at Patient Temp 54 mmHg (75-108) Arterial Blood HCO3 20 mmol/L (21-28) Arterial Blood Base Excess -7 mmol/L (-3-3) FiO2 50 Glucose (Fingerstick) 248 mg/dL (70-99) 208 mg/dL (70-99) 191 mg/dL (70-99) Test 01/16/18 04:45 01/16/18 05:56 Sodium Level 149 mmol/L (136-145) Potassium Level 4.3 mmol/L (3.5-5.1) Chloride Level 112 mmol/L (98-107) Carbon Dioxide Level 23 mmol/L (21-32) Anion Gap 14 (6-14) Blood Urea Nitrogen 49 mg/dL (8-26) Creatinine 5.7 mg/dL (0.7-1.3) Estimated GFR (Cockcroft-Gault) 10.9 Glucose Level 280 mg/dL (70-99) Calcium Level 8.5 mg/dL (8.5-10.1) Phosphorus Level 4.5 mg/dL (2.6-4.7) Magnesium Level 1.6 mg/dL (1.8-2.4) Glucose (Fingerstick) 243 mg/dL (70-99) Micro CT Impression: 1. There is evidence of pancreatitis, diffuse inflammatory change associated with the enlarged pancreas. 2. There is prominent colonic wall thickening of the ascending colon and hepatic flexure and questionably minimally of the descending colon, evidence of colitis. There is minimal nonspecific free fluid more eccentric to the right abdomen. 3. There is diffuse hepatic steatosis and hepatomegaly. 4. There are infiltrates of the lower lobes bilaterally at the lung bases and also the visualized posterior aspect of the right upper lobe. There is very minimal left pleural effusion. 5. There is a small nonobstructive left renal calculus. Microbiology 01/11/18 Blood Culture - Preliminary, Resulted NO GROWTH AFTER 1 DAY Objective Assessment Pancreatitis Fever likely sec to above/+- aspiration/? infection - better DENISHA - stable Aspiration pneumonia.- Group A strep/Strep pneumo/legionella neg. Gram stain from sputum GPC in pairs from 01/12 Acute encephalopathy with hallucinations and behavioral change Lactic acidosis, improved. Heavy alcohol use. Hyperglycemia. Worsening back pain with urinary incontinence prior to admission. History of methicillin-resistant Staphylococcus aureus - in back Morbid obesity Plan Plan of Care Repeat cults Discont Zosyn with ongoing fever and begin Meropenem Check C-diff with colitis although likely reactive - Add Flagyl May need repeat CT abd Cont Doxy Sputum culture - nromal tor Monitor labs in am/temp D/w nursing Critically ill BENITO GEIGER MD Jan 16, 2018 07:32
[2018-01-16] MEDS: HALOPERIDOL LACTATE 5 MG/ML VIAL. IVP PRN ×3 (07:44→21:24)
[2018-01-16 07:52] LABS: BASO % 1 % (0-3); EOS # 0.1 x10^3/uL (0.0-0.7); EOS % 2 % (0-3); HEMATOCRIT 31.1 % (39.0-53.0); HEMOGLOBIN 10.2 g/dL (13.0-17.5); LYMPH # 0.8 x10^3/uL (1.0-4.8); LYMPH % 14 % (24-48); MEAN CORPUSCULAR HEMOGLOBIN 33 pg (25-35); MEAN CORPUSCULAR HGB CONC 33 g/dL (31-37); MEAN CORPUSCULAR VOLUME 100 fL (79-100); MONO # 0.8 x10^3/uL (0.0-1.1); MONO % 14 % (0-9); NEUT # 4.3 x10^3uL (1.8-7.7); NEUT % 70 % (31-73); PLATELET COUNT 214 x10^3/uL (140-400); RED BLOOD COUNT 3.11 x10^6/uL (4.30-5.70); RED CELL DISTRIBUTION WIDTH 14.6 % (11.5-14.5); WHITE BLOOD COUNT 6.1 x10^3/uL (4.0-11.0)
[2018-01-16] MEDS: VECURONIUM BOLUS 10 MG VIAL. IV PRN ×3 (08:52→22:32)
--- NOTE | 2018-01-16 09:00 | RAD ---
PORTABLE CHEST 1V dated 01/16/2018 6:21 AM. Comparison: 01/15/2018 Clinical Indication: RESPIRATORY FAILURE. Findings: Single upright portable exam performed. Heart and mediastinal contours are stable. Endotracheal tubew, nasogastric tube and right sided internal jugular catheter in place, unchanged. Lung volumes are low. Patchy perihilar airspace disease is similar to slightly improved. No new infiltrate. Improving bilateral pleural effusions. No pneumothorax. Impression: Improving bilateral airspace disease and pleural effusions. Electronically signed by: Jimmy Cohen MD (01/16/2018 8:56 AM) [facility] [id number]
[2018-01-16] MEDS: LABETALOL 20 MG/4 ML DISP.SYRIN. IVP PRN ×2 (09:31→13:57)
[2018-01-16] MEDS: MEROPENEM 500 MG in IV NORMAL SALINE 50ML 50 ML IV SCH ×2 (09:53→21:23)
[2018-01-16] MEDS: IV DEXTROSE 5 %-0.45 % NACL 1,000 ML IV SCH (10:00)
[2018-01-16] MEDS: LORazepam 100 MG in IV NORMAL SALINE 100ML 50 ML IV PRN ×2 (10:28→20:53)
--- NOTE | 2018-01-16 10:37 | PDOC ---
SUBJECTIVE ROS Intubated, significantly good UOP OBJECTIVE Vital Signs Vital Signs Date Time Temp Pulse Resp B/P (MAP) Pulse Ox O2 Delivery O2 Flow Rate FiO2 01/16/18 09:31 109 206/100 01/16/18 08:45 97 Ventilator 01/16/18 06:00 26 01/16/18 04:00 100.8 100.8 I & 0 Intake and Output 01/16/18 07:00 Intake Total 5387.90 ml Output Total 5980 ml Balance -592.10 ml IV Total 5387.90 ml Output Urine Total 5980 ml PHYSICAL EXAM Physical Exam GENERAL: sedated and intubated. HEENT: ETT and NGT in place. NECK: Supple/ No JVD LUNGS: Diminished aeration in the bases. HEART: Regular rhythm. ABDOMEN: Obese. : Indwelling Cook in place. EXTREMITIES: No edema SKIN: Has tattoos. No rash.scabs in LE NEUROLOGIC: sedated. DIAGNOSIS/ASSESSMENT Assessment & Plan DENISHA - ATN Noted Acute Worsening with Oliguria , UOP great , Creat Stabilized, Likely should start seeing improvement E-Lytes and acid base stable, Currently No Emergent Indication for [employer] , Monitor Pancreatitis- Noted elevated Lipase , CT Ordered cw Pancreatitis GI following- Pancreatitis - h/o alcohol and hypertriglyceridemia, no gallstones on US Hypernatremia- Higher after Corrected for Glucose On TPN Recommend DC IV NS , Monitor Fever/ Aspiration pneumonia ID Following Lactic acidosis, improved. Acute encephalopathy with hallucinations and behavioral change. Heavy alcohol use Discussed with RN and Dr. Eid COMMENT/RELEVANT DATA Meds Current Medications Medications (Trade) Dose Ordered Sig/Yamile Start Time Stop Time Status Last Admin Dose Admin Acetaminophen (Tylenol) 500 mg 1X PRN PRN 01/15/18 09:15 01/15/18 09:32 DC Albumin Human 200 ml @ 200 mls/hr 1X ONCE 01/15/18 09:15 01/15/18 09:32 DC Albuterol/ Ipratropium (Duoneb) 3 ml RTQID 01/12/18 08:00 01/16/18 07:10 3 ML Aspirin (Children'S Aspirin) 324 mg 1X ONCE 01/11/18 13:45 01/11/18 13:46 DC 01/11/18 14:02 324 MG Atropine Sulfate (ATROPINE 0.5mg SYRINGE) 0.5 mg PRN Q5MIN PRN 01/11/18 16:45 Chlorhexidine Gluconate (Peridex) 15 ml BID 01/16/18 21:00 Dexmedetomidine HCl 200 mcg/ Sodium Chloride 50 ml @ 0 mls/hr CONT PRN 01/11/18 21:00 01/16/18 08:49 2.47 MLS/HR Dextrose (Dextrose 50%-Water Syringe) 12.5 gm PRN Q15MIN PRN 01/11/18 21:00 Dextrose/Sodium Chloride 1,000 ml @ 50 mls/hr Q20H 01/16/18 10:00 Diphenhydramine HCl (Benadryl) 25 mg 1X PRN PRN 01/15/18 09:15 01/15/18 09:32 DC Doxycycline Hyclate 100 mg/ Dextrose 100 ml @ 50 mls/hr Q12HR 01/13/18 09:00 01/15/18 21:03 50 MLS/HR Epinephrine HCl (EPINEPHrine SYRINGE) 1 mg STK-MED ONCE 01/11/18 19:00 01/13/18 07:59 DC Famotidine (Pepcid Vial) 20 mg DAILY 01/15/18 09:00 01/15/18 08:40 20 MG Fentanyl Citrate (Fentanyl 2ml Vial) 50 mcg PRN Q1HR PRN 01/11/18 18:45 01/11/18 20:21 50 MCG Gemfibrozil (Lopid) 600 mg BIDBFRMEAL 01/12/18 10:00 01/15/18 16:37 600 MG Haloperidol Lactate (Haldol Inj) 5 mg PRN Q6HRS PRN 01/11/18 16:15 01/16/18 07:44 5 MG Heparin Sodium (Porcine) (Heparin Sodium) 5,000 unit Q8HRS 01/12/18 14:00 01/16/18 06:08 5,000 UNIT Hydromorphone HCl (Dilaudid) 0.4 mg PRN Q1HR PRN 01/11/18 18:45 Info (PHARMACY MONITORING -- do not chart) 1 each PRN DAILY PRN 01/15/18 09:15 Info (Tpn Per Pharmacy) 1 each PRN DAILY PRN 01/14/18 09:45 01/15/18 12:59 1 EACH Insulin Human Lispro (HumaLOG) 0-7 UNITS Q6HRS 01/12/18 00:00 01/16/18 06:00 4 UNITS Labetalol HCl (Normodyne Iv Push) 20 mg PRN Q2HR PRN 01/14/18 15:30 01/16/18 09:31 20 MG Linezolid/Dextrose 300 ml @ 300 mls/hr Q12HR 01/12/18 21:00 01/15/18 12:06 DC 01/15/18 08:39 300 MLS/HR Lorazepam (Ativan) 4 mg PRN Q1HR PRN 01/11/18 18:15 01/15/18 23:04 4 MG Lorazepam 100 mg/ Sodium Chloride 100 ml @ 2 mls/hr CONT PRN 01/16/18 09:45 Magnesium Sulfate 50 ml @ 25 mls/hr 1X ONCE 01/12/18 01:00 01/12/18 02:59 DC 01/12/18 01:27 25 MLS/HR Meropenem 500 mg/ Sodium Chloride 50 ml @ 100 mls/hr Q12HR 01/16/18 08:00 01/16/18 09:53 100 MLS/HR Metronidazole 100 ml @ 100 mls/hr Q8HRS 01/16/18 08:00 Midazolam HCl 100 ml @ 1 mls/hr CONT PRN 01/11/18 18:45 01/16/18 09:52 DC 01/16/18 04:52 15 MLS/HR Morphine Sulfate (Morphine Sulfate) 4 mg PRN Q1HR PRN 01/11/18 18:45 UNV Multivitamins 10 ml/Thiamine HCl 100 mg/Folic Acid 1 mg/Sodium Chloride 1,011.2 ml @ 1,000.088 mls/hr 1X ONCE 01/15/18 08:15 01/15/18 09:15 UNV Olanzapine (ZyPREXA IM) 10 mg 1X ONCE 01/11/18 18:45 01/11/18 18:46 DC 01/11/18 18:42 10 MG Pharmacy Consult (C.diff Med Screen By Rx) 1 each PRN 1X PRN 01/15/18 09:30 Cancel Piperacillin Sod/ Tazobactam Sod (Zosyn Per Pharmacy) 1 each PRN DAILY PRN 01/11/18 20:15 01/13/18 08:00 DC Piperacillin Sod/ Tazobactam Sod 2.25 gm/Sodium Chloride 50 ml @ 100 mls/hr Q8HRS 01/13/18 14:00 01/16/18 07:31 DC 01/16/18 05:59 100 MLS/HR Piperacillin Sod/ Tazobactam Sod 4.5 gm/Sodium Chloride 100 ml @ 200 mls/hr Q6HRS 01/12/18 00:00 01/13/18 07:57 DC 01/13/18 06:48 200 MLS/HR Propofol (Diprivan) 1,000 mg STK-MED ONCE 01/11/18 19:00 01/13/18 07:59 DC Sodium Acetate 75 meq/Potassium Chloride 30 meq/ Potassium Phosphate 6.8 mmol/Magnesium Sulfate 13 meq/ Calcium Gluconate 10 meq/ Multivitamins 10 ml/Chromium/ Copper/Manganese/ Seleni/Zn 1 ml/ Thiamine HCl 100 mg/Folic Acid 1 mg/Total Parenteral Nutrition/Amino Acids/Dextro... 1,512 ml @ 63 mls/hr TPN CONT 01/15/18 22:00 01/16/18 21:59 01/15/18 22:07 63 MLS/HR Sodium Bicarbonate (Sodium Bicarb Adult 8.4% Syr) 100 meq 1X ONCE 01/14/18 11:30 01/14/18 11:31 DC 01/14/18 11:34 100 MEQ Sodium Chloride 1,000 ml @ 400 mls/hr Q2H30M PRN 01/15/18 09:06 01/15/18 09:32 DC Sodium Chloride 45 meq/Sodium Acetate 45 meq/ Potassium Chloride 30 meq/ Potassium Phosphate 6.8 mmol/Magnesium Sulfate 10 meq/ Calcium Gluconate 10 meq/ Multivitamins 10 ml/Chromium/ Copper/Manganese/ Seleni/Zn 1 ml/ Thiamine HCl 100 mg/Folic Acid 1 mg/Total Julieta... 1,512 ml @ 63 mls/hr TPN CONT 01/14/18 22:00 01/15/18 21:59 DC 01/14/18 21:37 63 MLS/HR Succinylcholine Chloride (Anectine) 200 mg STK-MED ONCE 01/11/18 19:00 01/13/18 07:59 DC Vancomycin HCl (Vanco Per Pharmacy) 1 each PRN DAILY PRN 01/11/18 20:15 01/12/18 13:14 DC 01/12/18 11:47 1 EACH Vancomycin HCl (Vancomycin Trough Level) 1 each 1X ONCE 01/12/18 20:30 01/12/18 20:30 DC Vancomycin HCl 1.5 gm/Sodium Chloride 500 ml @ 250 mls/hr Q12H 01/12/18 09:00 01/12/18 13:14 DC 01/12/18 08:44 250 MLS/HR Vancomycin HCl 2 gm/Sodium Chloride 500 ml @ 250 mls/hr 1X ONCE 01/11/18 21:00 01/11/18 22:59 DC 01/11/18 21:00 250 MLS/HR Vecuronium [place] (Norcuron Bolus) 6 mg PRN Q4HRS PRN 01/15/18 15:00 01/16/18 08:52 6 MG Lab Laboratory Tests Test 01/15/18 12:14 01/15/18 17:50 01/16/18 00:02 01/16/18 04:45 Glucose (Fingerstick) 248 mg/dL (70-99) 208 mg/dL (70-99) 191 mg/dL (70-99) White Blood Count 6.1 x10^3/uL (4.0-11.0) Red Blood Count 3.11 x10^6/uL (4.30-5.70) Hemoglobin 10.2 g/dL (13.0-17.5) Hematocrit 31.1 % (39.0-53.0) Mean Corpuscular Volume 100 fL (79-100) Mean Corpuscular Hemoglobin 33 pg (25-35) Mean Corpuscular Hemoglobin Concent 33 g/dL (31-37) Red Cell Distribution Width 14.6 % (11.5-14.5) Platelet Count 214 x10^3/uL (140-400) Neutrophils (%) (Auto) 70 % (31-73) Lymphocytes (%) (Auto) 14 % (24-48) Monocytes (%) (Auto) 14 % (0-9) Eosinophils (%) (Auto) 2 % (0-3) Basophils (%) (Auto) 1 % (0-3) Neutrophils # (Auto) 4.3 x10^3uL (1.8-7.7) Lymphocytes # (Auto) 0.8 x10^3/uL (1.0-4.8) Monocytes # (Auto) 0.8 x10^3/uL (0.0-1.1) Eosinophils # (Auto) 0.1 x10^3/uL (0.0-0.7) Basophils # (Auto) 0.0 x10^3/uL (0.0-0.2) Sodium Level 149 mmol/L (136-145) Potassium Level 4.3 mmol/L (3.5-5.1) Chloride Level 112 mmol/L (98-107) Carbon Dioxide Level 23 mmol/L (21-32) Anion Gap 14 (6-14) Blood Urea Nitrogen 49 mg/dL (8-26) Creatinine 5.7 mg/dL (0.7-1.3) Estimated GFR (Cockcroft-Gault) 10.9 Glucose Level 280 mg/dL (70-99) Calcium Level 8.5 mg/dL (8.5-10.1) Phosphorus Level 4.5 mg/dL (2.6-4.7) Magnesium Level 1.6 mg/dL (1.8-2.4) Test 01/16/18 05:56 01/16/18 07:05 Glucose (Fingerstick) 243 mg/dL (70-99) O2 Saturation 98 % (92-99) Arterial Blood pH 7.34 (7.35-7.45) Arterial Blood pCO2 at Patient Temp 40 mmHg (35-46) Arterial Blood pO2 at Patient Temp 121 mmHg (75-108) Arterial Blood HCO3 21 mmol/L (21-28) Arterial Blood Base Excess -4 mmol/L (-3-3) FiO2 50% vent Results All relevant outside records, renal labs, imaging studies, telemetry/EKG's were reviewed \CxR- Single upright portable exam performed. Heart and mediastinal contours are stable. Endotracheal tubew, nasogastric tube and right sided internal jugular catheter in place, unchanged. Lung volumes are low. Patchy perihilar airspace disease is similar to slightly improved. No new infiltrate. Improving bilateral pleural effusions. No pneumothorax. Impression: Improving bilateral airspace disease and pleural effusions. NERISSA BURR MD Jan 16, 2018 10:37
[2018-01-16] MEDS: DOXYCYCLINE HYCLATE 100 MG in IV DEXTROSE 5% 100ML 100 ML IV SCH ×2 (10:55→21:24)
--- NOTE | 2018-01-16 11:25 | PDOC ---
PULMONARY PROGRESS NOTES Subjective remains on AC mode needs a lot of sedatives to control agitation/ sedation holiday failed 01/15 Vitals Vital Signs Date Time Temp Pulse Resp B/P (MAP) Pulse Ox O2 Delivery O2 Flow Rate FiO2 01/16/18 11:08 100 Ventilator 01/16/18 09:31 109 206/100 01/16/18 06:00 26 01/16/18 04:00 100.8 100.8 Lungs: Other (decrease bs) Cardiovascular: S1 Abdomen: Soft Extremities: Other (1+edema) Skin: Warm Labs Laboratory Tests Test 01/14/18 17:15 01/14/18 23:32 01/15/18 05:30 01/15/18 05:40 Glucose (Fingerstick) 188 mg/dL (70-99) 247 mg/dL (70-99) 261 mg/dL (70-99) White Blood Count 6.3 x10^3/uL (4.0-11.0) Red Blood Count 3.03 x10^6/uL (4.30-5.70) Hemoglobin 10.0 g/dL (13.0-17.5) Hematocrit 30.1 % (39.0-53.0) Mean Corpuscular Volume 99 fL (79-100) Mean Corpuscular Hemoglobin 33 pg (25-35) Mean Corpuscular Hemoglobin Concent 33 g/dL (31-37) Red Cell Distribution Width 14.4 % (11.5-14.5) Platelet Count 172 x10^3/uL (140-400) Neutrophils (%) (Auto) 76 % (31-73) Lymphocytes (%) (Auto) 9 % (24-48) Monocytes (%) (Auto) 10 % (0-9) Eosinophils (%) (Auto) 5 % (0-3) Basophils (%) (Auto) 0 % (0-3) Neutrophils # (Auto) 4.8 x10^3uL (1.8-7.7) Lymphocytes # (Auto) 0.5 x10^3/uL (1.0-4.8) Monocytes # (Auto) 0.6 x10^3/uL (0.0-1.1) Eosinophils # (Auto) 0.3 x10^3/uL (0.0-0.7) Basophils # (Auto) 0.0 x10^3/uL (0.0-0.2) Sodium Level 147 mmol/L (136-145) Potassium Level 3.8 mmol/L (3.5-5.1) Chloride Level 110 mmol/L (98-107) Carbon Dioxide Level 24 mmol/L (21-32) Anion Gap 13 (6-14) Blood Urea Nitrogen 42 mg/dL (8-26) Creatinine 6.1 mg/dL (0.7-1.3) Estimated GFR (Cockcroft-Gault) 10.1 BUN/Creatinine Ratio 7 (6-20) Glucose Level 270 mg/dL (70-99) Calcium Level 7.5 mg/dL (8.5-10.1) Phosphorus Level 3.9 mg/dL (2.6-4.7) Magnesium Level 1.6 mg/dL (1.8-2.4) Total Bilirubin 0.7 mg/dL (0.2-1.0) Aspartate Amino Transf (AST/SGOT) 20 U/L (15-37) Alanine Aminotransferase (ALT/SGPT) 22 U/L (16-63) Alkaline Phosphatase 73 U/L (46-116) Total Protein 5.9 g/dL (6.4-8.2) Albumin 1.5 g/dL (3.4-5.0) Albumin/Globulin Ratio 0.3 (1.0-1.7) Lipase 459 U/L (73-393) Test 01/15/18 08:10 01/15/18 12:14 01/15/18 17:50 01/16/18 00:02 O2 Saturation 87 % (92-99) Arterial Blood pH 7.25 (7.35-7.45) Arterial Blood pCO2 at Patient Temp 48 mmHg (35-46) Arterial Blood pO2 at Patient Temp 54 mmHg (75-108) Arterial Blood HCO3 20 mmol/L (21-28) Arterial Blood Base Excess -7 mmol/L (-3-3) FiO2 50 Glucose (Fingerstick) 248 mg/dL (70-99) 208 mg/dL (70-99) 191 mg/dL (70-99) Test 01/16/18 04:45 01/16/18 05:56 01/16/18 07:05 White Blood Count 6.1 x10^3/uL (4.0-11.0) Red Blood Count 3.11 x10^6/uL (4.30-5.70) Hemoglobin 10.2 g/dL (13.0-17.5) Hematocrit 31.1 % (39.0-53.0) Mean Corpuscular Volume 100 fL (79-100) Mean Corpuscular Hemoglobin 33 pg (25-35) Mean Corpuscular Hemoglobin Concent 33 g/dL (31-37) Red Cell Distribution Width 14.6 % (11.5-14.5) Platelet Count 214 x10^3/uL (140-400) Neutrophils (%) (Auto) 70 % (31-73) Lymphocytes (%) (Auto) 14 % (24-48) Monocytes (%) (Auto) 14 % (0-9) Eosinophils (%) (Auto) 2 % (0-3) Basophils (%) (Auto) 1 % (0-3) Neutrophils # (Auto) 4.3 x10^3uL (1.8-7.7) Lymphocytes # (Auto) 0.8 x10^3/uL (1.0-4.8) Monocytes # (Auto) 0.8 x10^3/uL (0.0-1.1) Eosinophils # (Auto) 0.1 x10^3/uL (0.0-0.7) Basophils # (Auto) 0.0 x10^3/uL (0.0-0.2) Sodium Level 149 mmol/L (136-145) Potassium Level 4.3 mmol/L (3.5-5.1) Chloride Level 112 mmol/L (98-107) Carbon Dioxide Level 23 mmol/L (21-32) Anion Gap 14 (6-14) Blood Urea Nitrogen 49 mg/dL (8-26) Creatinine 5.7 mg/dL (0.7-1.3) Estimated GFR (Cockcroft-Gault) 10.9 Glucose Level 280 mg/dL (70-99) Calcium Level 8.5 mg/dL (8.5-10.1) Phosphorus Level 4.5 mg/dL (2.6-4.7) Magnesium Level 1.6 mg/dL (1.8-2.4) Glucose (Fingerstick) 243 mg/dL (70-99) O2 Saturation 98 % (92-99) Arterial Blood pH 7.34 (7.35-7.45) Arterial Blood pCO2 at Patient Temp 40 mmHg (35-46) Arterial Blood pO2 at Patient Temp 121 mmHg (75-108) Arterial Blood HCO3 21 mmol/L (21-28) Arterial Blood Base Excess -4 mmol/L (-3-3) FiO2 50% vent Laboratory Tests Test 01/15/18 12:14 01/15/18 17:50 01/16/18 00:02 01/16/18 04:45 Glucose (Fingerstick) 248 mg/dL (70-99) 208 mg/dL (70-99) 191 mg/dL (70-99) White Blood Count 6.1 x10^3/uL (4.0-11.0) Red Blood Count 3.11 x10^6/uL (4.30-5.70) Hemoglobin 10.2 g/dL (13.0-17.5) Hematocrit 31.1 % (39.0-53.0) Mean Corpuscular Volume 100 fL (79-100) Mean Corpuscular Hemoglobin 33 pg (25-35) Mean Corpuscular Hemoglobin Concent 33 g/dL (31-37) Red Cell Distribution Width 14.6 % (11.5-14.5) Platelet Count 214 x10^3/uL (140-400) Neutrophils (%) (Auto) 70 % (31-73) Lymphocytes (%) (Auto) 14 % (24-48) Monocytes (%) (Auto) 14 % (0-9) Eosinophils (%) (Auto) 2 % (0-3) Basophils (%) (Auto) 1 % (0-3) Neutrophils # (Auto) 4.3 x10^3uL (1.8-7.7) Lymphocytes # (Auto) 0.8 x10^3/uL (1.0-4.8) Monocytes # (Auto) 0.8 x10^3/uL (0.0-1.1) Eosinophils # (Auto) 0.1 x10^3/uL (0.0-0.7) Basophils # (Auto) 0.0 x10^3/uL (0.0-0.2) Sodium Level 149 mmol/L (136-145) Potassium Level 4.3 mmol/L (3.5-5.1) Chloride Level 112 mmol/L (98-107) Carbon Dioxide Level 23 mmol/L (21-32) Anion Gap 14 (6-14) Blood Urea Nitrogen 49 mg/dL (8-26) Creatinine 5.7 mg/dL (0.7-1.3) Estimated GFR (Cockcroft-Gault) 10.9 Glucose Level 280 mg/dL (70-99) Calcium Level 8.5 mg/dL (8.5-10.1) Phosphorus Level 4.5 mg/dL (2.6-4.7) Magnesium Level 1.6 mg/dL (1.8-2.4) Test 01/16/18 05:56 01/16/18 07:05 Glucose (Fingerstick) 243 mg/dL (70-99) O2 Saturation 98 % (92-99) Arterial Blood pH 7.34 (7.35-7.45) Arterial Blood pCO2 at Patient Temp 40 mmHg (35-46) Arterial Blood pO2 at Patient Temp 121 mmHg (75-108) Arterial Blood HCO3 21 mmol/L (21-28) Arterial Blood Base Excess -4 mmol/L (-3-3) FiO2 50% vent Medications Active Scripts Medications Dose Route/Sig Max Daily Dose Days Date Category [hemp botanicals] 01/12/18 Reported Maxitrol Eye Drops (Brandon/Polymyx B Sulf/Dexameth) 5 Ml Drops.susp 1 Drop OD QID 01/12/18 Reported Multivitamins (Multivitamin) 1 Each Tablet 1 Tab PO DAILY 01/12/18 Reported Magnesium (Magnesium Oxide) 400 Mg Capsule 1 Cap PO DAILY 01/12/18 Reported Calcium (Calcium Carbonate) 500 Mg Tab.chew 500 Mg PO 01/12/18 Reported Lansoprazole 30 Mg Capsule.dr 1 Cap PO DAILY 01/12/18 Reported Losartan Potassium 25 Mg Tablet 25 Mg PO DAILY 01/12/18 Reported Tizanidine Hcl 4 Mg Tablet 1 Tab PO TID 01/12/18 Reported Tramadol Hcl 50 Mg Tablet 50 Mg PO DAILY PRN 01/12/18 Reported Bystolic (Nebivolol Hcl) 20 Mg Tablet 20 Mg PO DAILY 01/12/18 Reported Cymbalta (Duloxetine Hcl) 20 Mg Capsule.dr 1 Cap PO DAILY 01/12/18 Reported Valacyclovir (Valacyclovir Hcl) 1,000 Mg Tablet 1 Tab PO DAILY 01/12/18 Reported Ibuprofen 400 Mg Tablet 400 Mg PO PRN Q6HRS PRN 09/21/15 Reported Bystolic (Nebivolol) 10 Mg Tablet 20 Mg PO DAILY 09/21/15 Reported Amlodipine Besylate 10 Mg Tablet 10 Mg PO DAILY 09/21/15 Reported Comments CXR 01/16 REVIEWED NO SIG CHANGE Impression . 1. Acute respiratory failure./ multi-factorial 2. Abnormal chest x-ray/ poor insp effort, basal atelectasis 3. Sepsis . source pancreatitis 4. Severe agitation, secondary to alcohol withdrawal /sepsis/ needing multiple sedatives and prn paralytics/ add ativan drip today 5. alcoholic pancreatitis 6. No obvious CHF/ normal EF 7. History of alcohol abuse. Level neg. Positive for Marihuana 8. Obesity? obstructive sleep apnea-hypopnea syndrome. 9. DENISHA,, better 10. Combined met/resp acidosis. improved Plan . 1. Titrate FiO2 to keep O2 saturation 94%.AC mode. not ready for weaning/ needing heavy amounts of sedation 2. change vent setting per ABG./ prn bicarb 3. bronchodilator. 4. s/p fluid bolus. 5. ID rec 6. Renal rec 7. Pepcid for stress ulcer prophylaxis. 8. Lovenox 9. follow amylase/ lipase 10. Control blood sugar. 13. The findings and recommendations were discussed with RN./ RT AJ FINK MD Jan 16, 2018 11:25
--- NOTE | 2018-01-16 11:39 | PDOC ---
Objective: Objective: Reviewed w/ RN - bilious output from OG. When suction held to give Lopid, has "frothy" material in mouth. Reviewed chart - good urine output, monitoring renal function w/o dialysis for now. Still needing sedation. Vital Signs: Vital Signs Date Time Temp Pulse Resp B/P (MAP) Pulse Ox O2 Delivery O2 Flow Rate FiO2 01/16/18 11:08 100 Ventilator 01/16/18 09:31 109 206/100 01/16/18 06:00 26 01/16/18 04:00 100.8 100.8 Labs: Laboratory Tests Test 01/15/18 12:14 01/15/18 17:50 01/16/18 00:02 01/16/18 04:45 Glucose (Fingerstick) 248 mg/dL 208 mg/dL 191 mg/dL White Blood Count 6.1 x10^3/uL Red Blood Count 3.11 x10^6/uL Hemoglobin 10.2 g/dL Hematocrit 31.1 % Mean Corpuscular Volume 100 fL Mean Corpuscular Hemoglobin 33 pg Mean Corpuscular Hemoglobin Concent 33 g/dL Red Cell Distribution Width 14.6 % Platelet Count 214 x10^3/uL Neutrophils (%) (Auto) 70 % Lymphocytes (%) (Auto) 14 % Monocytes (%) (Auto) 14 % Eosinophils (%) (Auto) 2 % Basophils (%) (Auto) 1 % Neutrophils # (Auto) 4.3 x10^3uL Lymphocytes # (Auto) 0.8 x10^3/uL Monocytes # (Auto) 0.8 x10^3/uL Eosinophils # (Auto) 0.1 x10^3/uL Basophils # (Auto) 0.0 x10^3/uL Sodium Level 149 mmol/L Potassium Level 4.3 mmol/L Chloride Level 112 mmol/L Carbon Dioxide Level 23 mmol/L Anion Gap 14 Blood Urea Nitrogen 49 mg/dL Creatinine 5.7 mg/dL Estimated GFR (Cockcroft-Gault) 10.9 Glucose Level 280 mg/dL Calcium Level 8.5 mg/dL Phosphorus Level 4.5 mg/dL Magnesium Level 1.6 mg/dL Test 01/16/18 05:56 01/16/18 07:05 Glucose (Fingerstick) 243 mg/dL O2 Saturation 98 % Arterial Blood pH 7.34 Arterial Blood pCO2 at Patient Temp 40 mmHg Arterial Blood pO2 at Patient Temp 121 mmHg Arterial Blood HCO3 21 mmol/L Arterial Blood Base Excess -4 mmol/L FiO2 50% vent PE: GEN: intubated HEENT: OG - canister w/ ~200cc dark bilious material LUNGS: vent HEART: tachycardic ABD: quiet NEURO/PSYCH: sedated A/P: Agitation/encephalopathy, resp failure, DENISHA - remains intubated/sedated Pancreatitis - h/o alcohol and hypertriglyceridemia -- Not sure about "frothy" issue w/ Eda as d/w RN. Continue same per GI. MARILYN VASQUEZ Jan 16, 2018 11:39
[2018-01-16] MEDS: FAMOTIDINE 20 MG/2 ML VIAL IVP SCH (11:45)
[2018-01-16] MEDS: hydrALAZINE 20 MG/ML VIAL. IVP PRN (15:27)
[2018-01-16] MEDS: TPN PER PHARMACY MC PRN (16:35)
[2018-01-16] MEDS ORDERED: CHLORHEXIDINE 0.12% 15 ML MOUTHWASH. MM SCH (21:00)
[2018-01-16] MEDS: ACETAMINOPHEN 650 MG/20.3 ML SOLUTION. PEG PRN (21:24)
[2018-01-16] MEDS ORDERED: DEXTROSE 70% IV SCH ×10 (22:00)
[2018-01-16] MEDS ORDERED: [UNRECOGNIZED DRUG - OTHER] IV SCH ×10 (22:00)
[2018-01-16] MEDS ORDERED: AMINO ACIDS IV SCH ×10 (22:00)
[2018-01-16] MEDS ORDERED: TOTAL PARENTERAL NUTRITION IV SCH ×10 (22:00)
[2018-01-17] VITALS (34 sets, daily range): BP systolic 92–235; BP diastolic 55–121
[2018-01-17] MEDS: DEXMEDETOMIDINE 200 MCG in IV NORMAL SALINE 50ML 48 ML IV PRN ×16 (00:28→23:51)
[2018-01-17] MEDS: INSULIN LISPRO 300 UNITS/3 ML INSULN.PEN. SQ SCH ×5 (00:37→23:51)
[2018-01-17] MEDS: HEPARIN for SUB-Q USE 5,000 UNIT/ML VIAL. SQ SCH ×3 (05:43→21:25)
[2018-01-17] MEDS: IV DEXTROSE 5 %-0.45 % NACL 1,000 ML IV SCH (05:55)
[2018-01-17 06:59] LABS: BASO # 0.1 x10^3/uL (0.0-0.2); BASO % 1 % (0-3); EOS # 0.1 x10^3/uL (0.0-0.7); EOS % 1 % (0-3); HEMATOCRIT 28.7 % (39.0-53.0); HEMOGLOBIN 9.7 g/dL (13.0-17.5); LYMPH # 1.3 x10^3/uL (1.0-4.8); LYMPH % 22 % (24-48); MEAN CORPUSCULAR HEMOGLOBIN 33 pg (25-35); MEAN CORPUSCULAR HGB CONC 34 g/dL (31-37); MEAN CORPUSCULAR VOLUME 99 fL (79-100); MONO % 16 % (0-9); NEUT # 3.5 x10^3uL (1.8-7.7); NEUT % 60 % (31-73); PLATELET COUNT 245 x10^3/uL (140-400); RED BLOOD COUNT 2.89 x10^6/uL (4.30-5.70); RED CELL DISTRIBUTION WIDTH 14.3 % (11.5-14.5); WHITE BLOOD COUNT 5.8 x10^3/uL (4.0-11.0)
[2018-01-17] MEDS: IPRATRPIUM/ALBUTEROL 0.5/2.5MG 3 ML NEBU. NEB SCH ×4 (07:03→19:52)
[2018-01-17 07:10] LABS: ALBUMIN 1.7 g/dL (3.4-5.0); ALBUMIN/GLOBULIN RATIO 0.4 (1.0-1.7); CALCIUM 9.1 mg/dL (8.5-10.1); CREATININE 4.9 mg/dL (0.7-1.3); TOTAL BILIRUBIN 0.4 mg/dL (0.2-1.0); TOTAL PROTEIN 6.3 g/dL (6.4-8.2)
[2018-01-17 07:14] LABS: BASE EXCESS ABG -3 mmol/L (-3-3); HCO3 ABG 22 mmol/L (21-28); PCO2 ABG 41 mmHg (35-46); PO2 ABG 106 mmHg (75-108); SAT O2 ABG 98 % (92-99)
[2018-01-17 07:15] LABS: FIO2 ABG 40
[2018-01-17] MEDS ORDERED: IV DEXTROSE 5% 500 ML IV ONE (07:30)
[2018-01-17] MEDS: GEMFIBROZIL 600 MG TABLET. PO SCH ×2 (07:30→15:52)
--- NOTE | 2018-01-17 07:43 | PDOC ---
PROGRESS NOTES Chief Complaint Chief Complaint 1. Acute respiratory failure. 2. etoh intoxication versus dependence, not protecting airway hence intubated at the emergency room 2. LLL pneumonia. 3. Sepsis - LLL pneumonia 4. Severe agitation, could be secondary to alcohol withdrawal versus sepsis versus others. 5. Hyperglycemia, with HYPERTRIGLYCERIDEMIA 6. Elevated BNP and troponin elevation 7. History of alcohol abuse. 8. Obesity BMI 39 - poss obstructive sleep apnea-hypopnea syndrome. History of Present Illness History of Present Illness Admitted with hallucinations and combative, was intubated soon after admission. Ketonuria on UA Intubated sedated, father states this is likely polysubstance abuse withdrawal Overnight: Required vecuronium x2 for agitation vent dysynchrony overnight, Creatinine 5.7 this morning but making significant urine, sodium 149 and mag 1.6 , Triglycerides are high and lipase. Glucose better. Temp now 100.7F, cultures. With even small decrease in versed he becomes combative, but moves all extremities. No BM since 01/08, but has had nothing PO. Stable on TPN A/P: Acute respiratory failure - 22/550/50% peep 7, appears to be developing PNA in LL on CXR, on zyvox. Fever this morning again, blood cultures Hypernatremia - possibly 2/2 TF. Sodium 151, at least 6L Free water deficit, NPO for pancreatitis, will add D5W if ok with nephro Etoh intoxication versus dependence, not protecting airway hence intubated at the emergency room - no fevers for 2 days, could consider wean if he would comply with sedation reduction LLL pneumonia - changed to zyvox Sepsis - LLL pneumonia - cont fluids, will change to D5 1/2NSS Acute renal failure - Cr 1.4-->5.7 - likely from sepsis, hypotension, ATN? Nephrology following, may need HD in the near future, but making urine Severe agitation, could be secondary to alcohol withdrawal versus sepsis versus others. Did paralyze 01/13/18 overnight and 01/15/18 overnight, opens eyes with any weaning Hyperglycemia, with HYPERTRIGLYCERIDEMIA - insulin GTT. TPN with his his elevated lipase Elevated BNP and troponin elevation - likely from sepsis - cardiology seeing History of alcohol abuse - on precedex, versed, fentanyl for likely withdrawal Obesity BMI 39 - poss obstructive sleep apnea-hypopnea syndrome. Heparin SQ Already on PPI IV nutrition consult for tube feeds-->TPN We will need alcohol rehabilitation referrals once extubated Supportive care Further conditions pending course. Met with his father, he is acutely worsening He continues with fevers and combative behavior, difficult disposition, he is very ill Vitals Vitals Vital Signs Date Time Temp Pulse Resp B/P (MAP) Pulse Ox O2 Delivery O2 Flow Rate FiO2 01/17/18 07:03 100 Ventilator 01/17/18 06:30 82 153/93 (113) 01/17/18 06:00 26 01/17/18 04:00 99.5 99.5 Physical Exam Physical Exam GENERAL: sedated and intubated. HEENT: Pupils equal and reactive. ETT and NGT in place. NECK: Supple/ No JVD LUNGS: Diminished aeration in the bases. HEART: Regular rhythm. ABDOMEN: Obese. Hypoactive bowel sounds, soft, no grimace or guarding to palpation. GENITOURINARY: Indwelling Cook in place. EXTREMITIES: 1 plus edema or cyanosis. SKIN: He has tattoos. Warm, Multiple small scabs on both legs. NEUROLOGIC: Unresponsive/sedated. RIJ - clean. PIV clean General: Other (sedated on a ventilator.) Heart: Regular rate Lungs: Other (decrease bs) Abdomen: Normal bowel sounds Extremities: No clubbing, No cyanosis, No edema, Normal pulses Skin: No rashes, No breakdown Labs LABS Laboratory Tests Test 01/16/18 12:08 01/16/18 17:32 01/17/18 00:35 01/17/18 05:39 Glucose (Fingerstick) 239 mg/dL (70-99) 268 mg/dL (70-99) 343 mg/dL (70-99) 332 mg/dL (70-99) Test 01/17/18 06:00 01/17/18 07:00 White Blood Count 5.8 x10^3/uL (4.0-11.0) Red Blood Count 2.89 x10^6/uL (4.30-5.70) Hemoglobin 9.7 g/dL (13.0-17.5) Hematocrit 28.7 % (39.0-53.0) Mean Corpuscular Volume 99 fL (79-100) Mean Corpuscular Hemoglobin 33 pg (25-35) Mean Corpuscular Hemoglobin Concent 34 g/dL (31-37) Red Cell Distribution Width 14.3 % (11.5-14.5) Platelet Count 245 x10^3/uL (140-400) Neutrophils (%) (Auto) 60 % (31-73) Lymphocytes (%) (Auto) 22 % (24-48) Monocytes (%) (Auto) 16 % (0-9) Eosinophils (%) (Auto) 1 % (0-3) Basophils (%) (Auto) 1 % (0-3) Neutrophils # (Auto) 3.5 x10^3uL (1.8-7.7) Lymphocytes # (Auto) 1.3 x10^3/uL (1.0-4.8) Monocytes # (Auto) 1.0 x10^3/uL (0.0-1.1) Eosinophils # (Auto) 0.1 x10^3/uL (0.0-0.7) Basophils # (Auto) 0.1 x10^3/uL (0.0-0.2) Sodium Level 151 mmol/L (136-145) Potassium Level 4.0 mmol/L (3.5-5.1) Chloride Level 114 mmol/L (98-107) Carbon Dioxide Level 23 mmol/L (21-32) Anion Gap 14 (6-14) Blood Urea Nitrogen 56 mg/dL (8-26) Creatinine 4.9 mg/dL (0.7-1.3) Estimated GFR (Cockcroft-Gault) 13.0 BUN/Creatinine Ratio 11 (6-20) Glucose Level 368 mg/dL (70-99) Calcium Level 9.1 mg/dL (8.5-10.1) Total Bilirubin 0.4 mg/dL (0.2-1.0) Aspartate Amino Transf (AST/SGOT) 21 U/L (15-37) Alanine Aminotransferase (ALT/SGPT) 25 U/L (16-63) Alkaline Phosphatase 76 U/L (46-116) Total Protein 6.3 g/dL (6.4-8.2) Albumin 1.7 g/dL (3.4-5.0) Albumin/Globulin Ratio 0.4 (1.0-1.7) O2 Saturation 98 % (92-99) Arterial Blood pH 7.35 (7.35-7.45) Arterial Blood pCO2 at Patient Temp 41 mmHg (35-46) Arterial Blood pO2 at Patient Temp 106 mmHg (75-108) Arterial Blood HCO3 22 mmol/L (21-28) Arterial Blood Base Excess -3 mmol/L (-3-3) FiO2 40 Assessment and Plan Assessmemt and Plan Problems Medical Problems: (1) Diabetic keto-acidosis Status: Acute (2) Hyperglycemia due to type 2 diabetes mellitus Status: Acute (3) Metabolic acidemia Status: Acute (4) Metabolic encephalopathy Status: Acute Comment Review of Relevant I have reviewed the following items franklyn (where applicable) has been applied. Labs Laboratory Tests Test 01/15/18 08:10 01/15/18 12:14 01/15/18 17:50 01/16/18 00:02 O2 Saturation 87 % (92-99) Arterial Blood pH 7.25 (7.35-7.45) Arterial Blood pCO2 at Patient Temp 48 mmHg (35-46) Arterial Blood pO2 at Patient Temp 54 mmHg (75-108) Arterial Blood HCO3 20 mmol/L (21-28) Arterial Blood Base Excess -7 mmol/L (-3-3) FiO2 50 Glucose (Fingerstick) 248 mg/dL (70-99) 208 mg/dL (70-99) 191 mg/dL (70-99) Test 01/16/18 04:45 01/16/18 05:56 01/16/18 07:05 01/16/18 12:08 White Blood Count 6.1 x10^3/uL (4.0-11.0) Red Blood Count 3.11 x10^6/uL (4.30-5.70) Hemoglobin 10.2 g/dL (13.0-17.5) Hematocrit 31.1 % (39.0-53.0) Mean Corpuscular Volume 100 fL (79-100) Mean Corpuscular Hemoglobin 33 pg (25-35) Mean Corpuscular Hemoglobin Concent 33 g/dL (31-37) Red Cell Distribution Width 14.6 % (11.5-14.5) Platelet Count 214 x10^3/uL (140-400) Neutrophils (%) (Auto) 70 % (31-73) Lymphocytes (%) (Auto) 14 % (24-48) Monocytes (%) (Auto) 14 % (0-9) Eosinophils (%) (Auto) 2 % (0-3) Basophils (%) (Auto) 1 % (0-3) Neutrophils # (Auto) 4.3 x10^3uL (1.8-7.7) Lymphocytes # (Auto) 0.8 x10^3/uL (1.0-4.8) Monocytes # (Auto) 0.8 x10^3/uL (0.0-1.1) Eosinophils # (Auto) 0.1 x10^3/uL (0.0-0.7) Basophils # (Auto) 0.0 x10^3/uL (0.0-0.2) Sodium Level 149 mmol/L (136-145) Potassium Level 4.3 mmol/L (3.5-5.1) Chloride Level 112 mmol/L (98-107) Carbon Dioxide Level 23 mmol/L (21-32) Anion Gap 14 (6-14) Blood Urea Nitrogen 49 mg/dL (8-26) Creatinine 5.7 mg/dL (0.7-1.3) Estimated GFR (Cockcroft-Gault) 10.9 Glucose Level 280 mg/dL (70-99) Calcium Level 8.5 mg/dL (8.5-10.1) Phosphorus Level 4.5 mg/dL (2.6-4.7) Magnesium Level 1.6 mg/dL (1.8-2.4) Glucose (Fingerstick) 243 mg/dL (70-99) 239 mg/dL (70-99) O2 Saturation 98 % (92-99) Arterial Blood pH 7.34 (7.35-7.45) Arterial Blood pCO2 at Patient Temp 40 mmHg (35-46) Arterial Blood pO2 at Patient Temp 121 mmHg (75-108) Arterial Blood HCO3 21 mmol/L (21-28) Arterial Blood Base Excess -4 mmol/L (-3-3) FiO2 50% vent Test 01/16/18 17:32 01/17/18 00:35 01/17/18 05:39 01/17/18 06:00 Glucose (Fingerstick) 268 mg/dL (70-99) 343 mg/dL (70-99) 332 mg/dL (70-99) White Blood Count 5.8 x10^3/uL (4.0-11.0) Red Blood Count 2.89 x10^6/uL (4.30-5.70) Hemoglobin 9.7 g/dL (13.0-17.5) Hematocrit 28.7 % (39.0-53.0) Mean Corpuscular Volume 99 fL (79-100) Mean Corpuscular Hemoglobin 33 pg (25-35) Mean Corpuscular Hemoglobin Concent 34 g/dL (31-37) Red Cell Distribution Width 14.3 % (11.5-14.5) Platelet Count 245 x10^3/uL (140-400) Neutrophils (%) (Auto) 60 % (31-73) Lymphocytes (%) (Auto) 22 % (24-48) Monocytes (%) (Auto) 16 % (0-9) Eosinophils (%) (Auto) 1 % (0-3) Basophils (%) (Auto) 1 % (0-3) Neutrophils # (Auto) 3.5 x10^3uL (1.8-7.7) Lymphocytes # (Auto) 1.3 x10^3/uL (1.0-4.8) Monocytes # (Auto) 1.0 x10^3/uL (0.0-1.1) Eosinophils # (Auto) 0.1 x10^3/uL (0.0-0.7) Basophils # (Auto) 0.1 x10^3/uL (0.0-0.2) Sodium Level 151 mmol/L (136-145) Potassium Level 4.0 mmol/L (3.5-5.1) Chloride Level 114 mmol/L (98-107) Carbon Dioxide Level 23 mmol/L (21-32) Anion Gap 14 (6-14) Blood Urea Nitrogen 56 mg/dL (8-26) Creatinine 4.9 mg/dL (0.7-1.3) Estimated GFR (Cockcroft-Gault) 13.0 BUN/Creatinine Ratio 11 (6-20) Glucose Level 368 mg/dL (70-99) Calcium Level 9.1 mg/dL (8.5-10.1) Total Bilirubin 0.4 mg/dL (0.2-1.0) Aspartate Amino Transf (AST/SGOT) 21 U/L (15-37) Alanine Aminotransferase (ALT/SGPT) 25 U/L (16-63) Alkaline Phosphatase 76 U/L (46-116) Total Protein 6.3 g/dL (6.4-8.2) Albumin 1.7 g/dL (3.4-5.0) Albumin/Globulin Ratio 0.4 (1.0-1.7) Test 01/17/18 07:00 O2 Saturation 98 % (92-99) Arterial Blood pH 7.35 (7.35-7.45) Arterial Blood pCO2 at Patient Temp 41 mmHg (35-46) Arterial Blood pO2 at Patient Temp 106 mmHg (75-108) Arterial Blood HCO3 22 mmol/L (21-28) Arterial Blood Base Excess -3 mmol/L (-3-3) FiO2 40 Laboratory Tests Test 01/16/18 12:08 01/16/18 17:32 01/17/18 00:35 01/17/18 05:39 Glucose (Fingerstick) 239 mg/dL (70-99) 268 mg/dL (70-99) 343 mg/dL (70-99) 332 mg/dL (70-99) Test 01/17/18 06:00 01/17/18 07:00 White Blood Count 5.8 x10^3/uL (4.0-11.0) Red Blood Count 2.89 x10^6/uL (4.30-5.70) Hemoglobin 9.7 g/dL (13.0-17.5) Hematocrit 28.7 % (39.0-53.0) Mean Corpuscular Volume 99 fL (79-100) Mean Corpuscular Hemoglobin 33 pg (25-35) Mean Corpuscular Hemoglobin Concent 34 g/dL (31-37) Red Cell Distribution Width 14.3 % (11.5-14.5) Platelet Count 245 x10^3/uL (140-400) Neutrophils (%) (Auto) 60 % (31-73) Lymphocytes (%) (Auto) 22 % (24-48) Monocytes (%) (Auto) 16 % (0-9) Eosinophils (%) (Auto) 1 % (0-3) Basophils (%) (Auto) 1 % (0-3) Neutrophils # (Auto) 3.5 x10^3uL (1.8-7.7) Lymphocytes # (Auto) 1.3 x10^3/uL (1.0-4.8) Monocytes # (Auto) 1.0 x10^3/uL (0.0-1.1) Eosinophils # (Auto) 0.1 x10^3/uL (0.0-0.7) Basophils # (Auto) 0.1 x10^3/uL (0.0-0.2) Sodium Level 151 mmol/L (136-145) Potassium Level 4.0 mmol/L (3.5-5.1) Chloride Level 114 mmol/L (98-107) Carbon Dioxide Level 23 mmol/L (21-32) Anion Gap 14 (6-14) Blood Urea Nitrogen 56 mg/dL (8-26) Creatinine 4.9 mg/dL (0.7-1.3) Estimated GFR (Cockcroft-Gault) 13.0 BUN/Creatinine Ratio 11 (6-20) Glucose Level 368 mg/dL (70-99) Calcium Level 9.1 mg/dL (8.5-10.1) Total Bilirubin 0.4 mg/dL (0.2-1.0) Aspartate Amino Transf (AST/SGOT) 21 U/L (15-37) Alanine Aminotransferase (ALT/SGPT) 25 U/L (16-63) Alkaline Phosphatase 76 U/L (46-116) Total Protein 6.3 g/dL (6.4-8.2) Albumin 1.7 g/dL (3.4-5.0) Albumin/Globulin Ratio 0.4 (1.0-1.7) O2 Saturation 98 % (92-99) Arterial Blood pH 7.35 (7.35-7.45) Arterial Blood pCO2 at Patient Temp 41 mmHg (35-46) Arterial Blood pO2 at Patient Temp 106 mmHg (75-108) Arterial Blood HCO3 22 mmol/L (21-28) Arterial Blood Base Excess -3 mmol/L (-3-3) FiO2 40 Microbiology 01/11/18 Blood Culture - Final, Complete NO GROWTH AFTER 5 DAYS 01/13/18 Throat Culture - Final, Complete 01/13/18 - Final, Complete Medications Current Medications Lorazepam (Ativan) 1 mg 1X ONCE IV Last administered on 01/11/18at 12:25; Start 01/11/18 at 12:30; Stop 01/11/18 at 12:31; Status DC Lorazepam (Ativan) 2 mg 1X ONCE IV Last administered on 01/11/18at 13:03; Start 01/11/18 at 12:45; Stop 01/11/18 at 12:46; Status DC Dextrose/Sodium Chloride 1,000 ml @ 0 mls/hr 1X ONCE IV ; Start 01/11/18 at 13:00; Stop 01/11/18 at 13:16; Status DC Sodium Chloride 1,000 ml @ 1,000 mls/hr 1X ONCE IV Last administered on 01/11at 13:41; Start 01/11/18 at 13:30; Stop 01/11/18 at 14:29; Status DC Sodium Chloride 1,000 ml @ 1,000 mls/hr 1X ONCE IV Last administered on 01/11at 13:42; Start 01/11/18 at 13:30; Stop 01/11/18 at 14:29; Status DC Lorazepam (Ativan) 1 mg 1X ONCE IV Last administered on 01/11/18at 15:08; Start 01/11/18 at 13:30; Stop 01/11/18 at 13:31; Status DC Lorazepam (Ativan) 1 mg 1X ONCE IV Last administered on 01/11/18at 13:43; Start 01/11/18 at 13:30; Stop 01/11/18 at 13:33; Status DC Aspirin (Children'S Aspirin) 324 mg 1X ONCE PO Last administered on at 14:02; Start 01/11/18 at 13:45; Stop 01/11/18 at 13:46; Status DC Haloperidol Lactate (Haldol Inj) 5 mg PRN Q6HRS PRN IVP SEVERE AGITATION Last administered on 01/16/18at 21:24; Start 01/11/18 at 16:15 Lorazepam (Ativan) 4 mg PRN Q4HRS PRN IV ANXIETY / AGITATION Last administered on 01/16/18at 09:32; Start 01/11/18 at 16:15 Multivitamins 10 ml/Thiamine HCl 100 mg/Folic Acid 1 mg/Sodium Chloride 1,011.2 ml @ 125 mls/ hr DAILY IV Last administered on 01/14/18at 08:19; Start at 17:00; Stop 01/14/18 at 21:59; Status DC Dexmedetomidine HCl 200 mcg/ Sodium Chloride 50 ml @ 0 mls/hr CONT PRN IV PER PROTOCOL Last administered on 01/11/18at 17:00; Start 01/11/18 at 16:45; Stop 01/11/18 at 18:38; Status DC Sodium Chloride 500 ml @ 500 mls/hr 1X PRN PRN IV SEE COMMENTS; Start at 16:45 Atropine Sulfate (ATROPINE 0.5mg SYRINGE) 0.5 mg PRN Q5MIN PRN IV SEE COMMENTS ; Start 01/11/18 at 16:45 Lorazepam (Ativan) 4 mg PRN Q1HR PRN PO For CIWA 8-14; Start 01/11/18 at 18:15 Lorazepam (Ativan) 8 mg PRN Q1HR PRN PO For CIWA 15 or greater; Start at 18:15 Lorazepam (Ativan) 2 mg PRN Q1HR PRN IV For CIWA 8-14; Start 01/11/18 at 18:15 Lorazepam (Ativan) 4 mg PRN Q1HR PRN IV For CIWA 15 or greater Last administered on 01/15/18at 23:04; Start 01/11/18 at 18:15 Diphenhydramine HCl (Benadryl) 25 mg PRN Q15MIN PRN IVP EPS symptoms 2'Haldol admin; Start 01/11/18 at 18:15 Olanzapine (ZyPREXA IM) 10 mg 1X ONCE IM Last administered on 01/11/18at 18:42 ; Start 01/11/18 at 18:45; Stop 01/11/18 at 18:46; Status DC Dexmedetomidine HCl 200 mcg/ Sodium Chloride 50 ml @ 7 mls/hr CONT PRN IV PER PROTOCOL; Start 01/11/18 at 18:38; Stop 01/11/18 at 21:19; Status DC Propofol 100 ml @ As Directed STK-MED ONCE IV ; Start 01/11/18 at 18:43; Stop 01/11/18 at 18:44; Status DC Succinylcholine Chloride (Anectine) 200 mg STK-MED ONCE .ROUTE ; Start at 18:44; Stop 01/11/18 at 18:45; Status DC Fentanyl Citrate 30 ml @ 2.5 mls/hr CONT PRN IV PER PROTOCOL Last administered on 01/17/18at 04:09; Start 01/11/18 at 19:00 Propofol 100 ml @ 4.2 mls/hr CONT PRN IV PER PROTOCOL; Start 01/11/18 at 18: 45; Status Cancel Fentanyl Citrate (Fentanyl 2ml Vial) 25 mcg PRN Q1HR PRN IV SEE COMMENTS.; Start 01/11/18 at 18:45 Fentanyl Citrate (Fentanyl 2ml Vial) 50 mcg PRN Q1HR PRN IV SEE COMMENTS. Last administered on 01/11/18at 20:21; Start 01/11/18 at 18:45 Morphine Sulfate (Morphine Sulfate) 2 mg PRN Q1HR PRN IV SEE COMMENTS.; Start 01/11/18 at 18:45 Morphine Sulfate (Morphine Sulfate) 4 mg PRN Q1HR PRN IV SEE COMMENTS.; Start 01/11/18 at 18:45 Hydromorphone HCl (Dilaudid) 0.2 mg PRN Q1HR PRN IV SEE COMMENTS.; Start 01/11 at 18:45 Hydromorphone HCl (Dilaudid) 0.4 mg PRN Q1HR PRN IV SEE COMMENTS.; Start 01/11 at 18:45 Morphine Sulfate (Morphine Sulfate) 2 mg PRN Q1HR PRN IV ; Start 01/11/18 at 18:45; Status UNV Morphine Sulfate (Morphine Sulfate) 4 mg PRN Q1HR PRN IV ; Start 01/11/18 at 18:45; Status UNV Midazolam HCl 100 ml @ 1 mls/hr CONT PRN IV PER PROTOCOL Last administered on 01/16/18at 04:52; Start 01/11/18 at 18:45; Stop 01/16/18 at 09:52; Status DC Epinephrine HCl (EPINEPHrine SYRINGE) 1 mg STK-MED ONCE .ROUTE ; Start at 18:56; Stop 01/11/18 at 18:57; Status DC Propofol 100 ml @ 2.103 mls/ hr CONT PRN IV SEE I/O RECORD Last administered on 01/11/18at 20:23; Start 01/11/18 at 19:00 Vecuronium Wilder (Norcuron Bolus) 10 mg STK-MED ONCE IV ; Start 01/11/18 at 19:02; Stop 01/11/18 at 19:03; Status DC Vancomycin HCl (Vanco Per Pharmacy) 1 each PRN DAILY PRN MC SEE COMMENTS Last administered on 01/12/18at 11:47; Start 01/11/18 at 20:15; Stop 01/12/18 at 13 :14; Status DC Piperacillin Sod/ Tazobactam Sod (Zosyn Per Pharmacy) 1 each PRN DAILY PRN MC SEE COMMENTS; Start 01/11/18 at 20:15; Stop 01/13/18 at 08:00; Status DC Piperacillin Sod/ Tazobactam Sod 4.5 gm/Sodium Chloride 100 ml @ 200 mls/hr Q6HRS IV Last administered on 01/13/18at 06:48; Start 01/12/18 at 00:00; Stop 01/13/18 at 07:57; Status DC Vancomycin HCl 2 gm/Sodium Chloride 500 ml @ 250 mls/hr 1X ONCE IV Last administered on 01/11/18at 21:00; Start 01/11/18 at 21:00; Stop 01/11/18 at 22 :59; Status DC Insulin Human Lispro (HumaLOG) 0-7 UNITS Q6HRS SQ Last administered on at 05:42; Start 01/12/18 at 00:00 Dextrose (Dextrose 50%-Water Syringe) 12.5 gm PRN Q15MIN PRN IV SEE COMMENTS; Start 01/11/18 at 21:00 Sodium Chloride 1,000 ml @ 100 mls/hr Q10H IV Last administered on 01/16/18at 03:59; Start 01/11/18 at 21:00; Stop 01/16/18 at 09:47; Status DC Dexmedetomidine HCl 200 mcg/ Sodium Chloride 50 ml @ 0 mls/hr CONT PRN IV PER PROTOCOL Last administered on 01/17/18at 07:03; Start 01/11/18 at 21:00 Acetaminophen (Tylenol) 650 mg PRN Q6HRS PRN PEG MILD PAIN / TEMP Last administered on 01/16/18at 21:24; Start 01/11/18 at 21:30 Magnesium Sulfate 50 ml @ 25 mls/hr 1X ONCE IV Last administered on at 01:27; Start 01/12/18 at 01:00; Stop 01/12/18 at 02:59; Status DC Sodium Chloride 1,000 ml @ 1,000 mls/hr 1X ONCE IV Last administered on 01/12at 01:00; Start 01/12/18 at 04:30; Stop 01/12/18 at 05:29; Status DC Vancomycin HCl 1.5 gm/Sodium Chloride 500 ml @ 250 mls/hr Q12H IV Last administered on 01/12/18at 08:44; Start 01/12/18 at 09:00; Stop 01/12/18 at 13 :14; Status DC Vancomycin HCl (Vancomycin Trough Level) 1 each 1X ONCE MC ; Start 01/12/18 at 20:30; Stop 01/12/18 at 20:30; Status DC Sodium Chloride 500 ml @ 500 mls/hr 1X ONCE IV Last administered on at 07:26; Start 01/12/18 at 07:00; Stop 01/12/18 at 07:59; Status DC Famotidine (Pepcid Vial) 20 mg BID IVP Last administered on 01/13/18at 20:49; Start 01/12/18 at 09:00; Stop 01/14/18 at 09:40; Status DC Albuterol/ Ipratropium (Duoneb) 3 ml RTQID NEB Last administered on 01/17/18at 07:03; Start 01/12/18 at 08:00 Heparin Sodium (Porcine) (Heparin Sodium) 5,000 unit Q8HRS SQ Last administered on 01/17/18at 05:43; Start 01/12/18 at 14:00 Gemfibrozil (Lopid) 600 mg BIDBFRMEAL PO Last administered on 01/15/18at 16:37 ; Start 01/12/18 at 10:00 Linezolid/Dextrose 300 ml @ 300 mls/hr Q12HR IV Last administered on at 08:39; Start 01/12/18 at 21:00; Stop 01/15/18 at 12:06; Status DC Vecuronium Wilder (Norcuron Bolus) 10 mg STK-MED ONCE IV ; Start 01/11/18 at 19:00; Stop 01/13/18 at 07:59; Status DC Succinylcholine Chloride (Anectine) 200 mg STK-MED ONCE .ROUTE ; Start at 19:00; Stop 01/13/18 at 07:59; Status DC Propofol (Diprivan) 1,000 mg STK-MED ONCE IV ; Start 01/11/18 at 19:00; Stop 01/13/18 at 07:59; Status DC Epinephrine HCl (EPINEPHrine SYRINGE) 1 mg STK-MED ONCE .ROUTE ; Start at 19:00; Stop 01/13/18 at 07:59; Status DC Piperacillin Sod/ Tazobactam Sod 2.25 gm/Sodium Chloride 50 ml @ 100 mls/hr Q8HRS IV Last administered on 01/16/18at 05:59; Start 01/13/18 at 14:00; Stop 01/16/18 at 07:31; Status DC Doxycycline Hyclate 100 mg/ Dextrose 100 ml @ 50 mls/hr Q12HR IV Last administered on 01/16/18at 21:24; Start 01/13/18 at 09:00 Sodium Bicarbonate (Sodium Bicarb Adult 8.4% Syr) 100 meq 1X ONCE IV Last administered on 01/13/18at 09:12; Start 01/13/18 at 09:15; Stop 01/13/18 at 09 :16; Status DC Sodium Chloride 1,000 ml @ 1,000 mls/hr Q1H IV ; Start 01/13/18 at 12:30; Status Cancel Sodium Chloride 1,000 ml @ 1,000 mls/hr 1X ONCE IV Last administered on 01/13at 12:15; Start 01/13/18 at 12:15; Stop 01/13/18 at 13:14; Status DC Vecuronium Wilder (Norcuron Bolus) 6 mg PRN Q6HRS PRN IV VENT ASYNCHRONY Last administered on 01/15/18at 10:23; Start 01/13/18 at 12:30; Stop 01/15/18 at 14 :51; Status DC Info (Tpn Per Pharmacy) 1 each PRN DAILY PRN MC SEE COMMENTS Last administered on 01/16/18at 16:35; Start 01/14/18 at 09:45 Famotidine (Pepcid Vial) 20 mg DAILY IVP Last administered on 01/16/18at 11:45 ; Start 01/15/18 at 09:00 Sodium Bicarbonate (Sodium Bicarb Adult 8.4% Syr) 50 meq STK-MED ONCE .ROUTE ; Start 01/14/18 at 11:12; Stop 01/14/18 at 11:13; Status DC Labetalol HCl (Normodyne Iv Push) 10 mg PRN Q4HRS PRN IVP HYPERTENSION, SEE COMMENTS Last administered on 01/15/18at 17:40; Start 01/14/18 at 11:30 Sodium Bicarbonate (Sodium Bicarb Adult 8.4% Syr) 100 meq 1X ONCE IV Last administered on 01/14/18at 11:34; Start 01/14/18 at 11:30; Stop 01/14/18 at 11 :31; Status DC Sodium Chloride 45 meq/Sodium Acetate 45 meq/ Potassium Chloride 30 meq/ Potassium Phosphate 6.8 mmol/Magnesium Sulfate 10 meq/ Calcium Gluconate 10 meq / Multivitamins 10 ml/Chromium/ Copper/Manganese/ Seleni/Zn 1 ml/ Thiamine HCl 100 mg/Folic Acid 1 mg/Total Julieta... 1,512 ml @ 63 mls/hr TPN CONT IV Last administered on 01/14/18at 21:37; Start 01/14/18 at 22:00; Stop 01/15/18 at 21:59; Status DC Labetalol HCl (Normodyne Iv Push) 20 mg PRN Q2HR PRN IVP HYPERTENSION, SEE COMMENTS Last administered on 01/16/18at 13:57; Start 01/14/18 at 15:30 Multivitamins 10 ml/Thiamine HCl 100 mg/Folic Acid 1 mg/Sodium Chloride 1,011.2 ml @ 1,000.088 mls/hr 1X ONCE IV ; Start 01/15/18 at 08:15; Stop 01/15/18 at 09:15; Status UNV Sodium Chloride 1,000 ml @ 1,000 mls/hr Q1H PRN IV hypotension; Start at 09:06; Stop 01/15/18 at 09:32; Status DC Albumin Human 200 ml @ 200 mls/hr 1X ONCE IV ; Start 01/15/18 at 09:15; Stop 01/15/18 at 09:32; Status DC Acetaminophen (Tylenol) 500 mg 1X PRN PRN PO MILD PAIN / TEMP; Start 01/15/18 at 09:15; Stop 01/15/18 at 09:32; Status DC Diphenhydramine HCl (Benadryl) 25 mg 1X PRN PRN IV ITCHING; Start 01/15/18 at 09:15; Stop 01/15/18 at 09:32; Status DC Pharmacy Consult (C.diff Med Screen By Rx) 1 each PRN 1X PRN MC SEE COMMENTS; Start 01/15/18 at 09:30; Status Cancel Sodium Chloride 1,000 ml @ 400 mls/hr Q2H30M PRN IV PATENCY; Start 01/15/18 at 09:06; Stop 01/15/18 at 09:32; Status DC Info (PHARMACY MONITORING -- do not chart) 1 each PRN DAILY PRN MC SEE COMMENTS ; Start 01/15/18 at 09:15 Sodium Acetate 75 meq/Potassium Chloride 30 meq/ Potassium Phosphate 6.8 mmol/ Magnesium Sulfate 13 meq/ Calcium Gluconate 10 meq/ Multivitamins 10 ml/Chromium / Copper/Manganese/ Seleni/Zn 1 ml/ Thiamine HCl 100 mg/Folic Acid 1 mg/Total Parenteral Nutrition/Amino Acids/Dextro... 1,492 ml @ 62.167 mls/ hr TPN CONT IV ; Start 01/15/18 at 22:00; Stop 01/15/18 at 22:00; Status DC Sodium Acetate 75 meq/Potassium Chloride 30 meq/ Potassium Phosphate 6.8 mmol/ Magnesium Sulfate 13 meq/ Calcium Gluconate 10 meq/ Multivitamins 10 ml/Chromium / Copper/Manganese/ Seleni/Zn 1 ml/ Thiamine HCl 100 mg/Folic Acid 1 mg/Total Parenteral Nutrition/Amino Acids/Dextro... 1,512 ml @ 63 mls/hr TPN CONT IV Last administered on 01/15/18at 22:07; Start 01/15/18 at 22:00; Stop 01/16/18 at 21:59; Status DC Vecuronium Wilder (Norcuron Bolus) 6 mg PRN Q4HRS PRN IV VENT ASYNCHRONY Last administered on 01/16/18at 22:32; Start 01/15/18 at 15:00 Meropenem 500 mg/ Sodium Chloride 50 ml @ 100 mls/hr Q12HR IV Last administered on 01/16/18at 21:23; Start 01/16/18 at 08:00 Metronidazole 100 ml @ 100 mls/hr Q8HRS IV Last administered on 01/17/18at 05: 41; Start 01/16/18 at 08:00 Chlorhexidine Gluconate (Peridex) 15 ml BID MM ; Start 01/16/18 at 21:00; Status Cancel Dextrose/Sodium Chloride 1,000 ml @ 50 mls/hr Q20H IV ; Start 01/16/18 at 10: 00 Lorazepam 100 mg/ Sodium Chloride 100 ml @ 2 mls/hr CONT PRN IV SEE PROTOCOL Last administered on 01/16/18at 20:53; Start 01/16/18 at 09:45 Potassium Acetate 30 meq/Potassium Phosphate 3.4 mmol/Magnesium Sulfate 15 meq/ Calcium Gluconate 10 meq/ Multivitamins 10 ml/Chromium/ Copper/Manganese/ Seleni /Zn 1 ml/ Thiamine HCl 100 mg/Folic Acid 1 mg/Total Parenteral Nutrition/Amino Acids/Dextrose 1,512 ml @ 63 mls/hr TPN CONT IV Last administered on at 21:52; Start 01/16/18 at 22:00; Stop 01/17/18 at 21:59 Hydralazine HCl (Apresoline Inj) 20 mg PRN TID PRN IVP SBP>160 Last administered on 01/16/18at 15:27; Start 01/16/18 at 15:30 Nicardipine HCl 50 mg/Sodium Chloride 270 ml @ 27 mls/hr CONT PRN IV SEE I/O RECORD Last administered on 01/17/18at 00:28; Start 01/16/18 at 16:30 Active Scripts Active Reported [hemp botanicals] Maxitrol Eye Drops (Brandon/Polymyx B Sulf/Dexameth) 5 Ml Drops.susp 1 Drop OD QID Multivitamins (Multivitamin) 1 Each Tablet 1 Tab PO DAILY Magnesium (Magnesium Oxide) 400 Mg Capsule 1 Cap PO DAILY Calcium (Calcium Carbonate) 500 Mg Tab.chew 500 Mg PO Lansoprazole 30 Mg Capsule.dr 1 Cap PO DAILY Losartan Potassium 25 Mg Tablet 25 Mg PO DAILY Tizanidine Hcl 4 Mg Tablet 1 Tab PO TID Tramadol Hcl 50 Mg Tablet 50 Mg PO DAILY PRN Bystolic (Nebivolol Hcl) 20 Mg Tablet 20 Mg PO DAILY Cymbalta (Duloxetine Hcl) 20 Mg Capsule.dr 1 Cap PO DAILY Valacyclovir (Valacyclovir Hcl) 1,000 Mg Tablet 1 Tab PO DAILY Ibuprofen 400 Mg Tablet 400 Mg PO PRN Q6HRS PRN Bystolic (Nebivolol) 10 Mg Tablet 20 Mg PO DAILY Amlodipine Besylate 10 Mg Tablet 10 Mg PO DAILY Vitals/I & O Vital Sign - Last 24 Hours 01/16/18 01/16/18 01/16/18 01/16/18 08:00 08:00 08:45 09:00 Pulse 115 99 Resp 31 26 B/P (MAP) 180/91 (120) 200/100 (133) Pulse Ox 100 97 100 O2 Delivery Mechanical Ventilator Ventilator Ventilator Ventilator 01/16/18 01/16/18 01/16/18 01/16/18 09:31 10:00 11:00 11:08 Pulse 109 96 97 Resp 26 26 B/P (MAP) 206/100 146/78 (100) 142/74 (96) Pulse Ox 100 100 100 O2 Delivery Ventilator Ventilator Ventilator 01/16/18 01/16/18 01/16/18 01/16/18 12:00 12:00 13:00 13:57 Temp 99.8 99.8 Pulse 96 95 117 Resp B/P (MAP) 163/87 (112) 180/85 (116) 189/94 Pulse Ox 100 95 O2 Delivery Ventilator Mechanical Ventilator Ventilator 01/16/18 01/16/18 01/16/18 01/16/18 14:00 14:50 14:55 15:00 Pulse 107 111 Resp 26 B/P (MAP) 189/94 (125) 131/71 (91) 186/97 (126) Pulse Ox 100 100 96 O2 Delivery Ventilator Ventilator Ventilator 01/16/18 01/16/18 01/16/18 01/16/18 15:27 16:00 16:00 16:51 Pulse 110 114 Resp 26 B/P (MAP) 196/98 222/116 (151) Pulse Ox 99 100 O2 Delivery Mechanical Ventilator Ventilator Ventilator 01/16/18 01/16/18 01/16/18 01/16/18 17:00 18:00 18:30 19:00 Temp 100.0 100.0 Pulse 122 124 114 108 Resp 29 26 27 B/P (MAP) 175/93 (120) 196/103 (134) 167/91 (116) 135/71 (92) Pulse Ox 98 98 98 99 O2 Delivery Ventilator Ventilator Ventilator Ventilator 01/16/18 01/16/18 01/16/18 01/16/18 19:42 20:00 20:00 21:00 Temp 101.3 101.3 Pulse 98 101 Resp 27 26 B/P (MAP) 112/63 (79) 135/72 (93) Pulse Ox 100 100 100 O2 Delivery Ventilator Ventilator Mechanical Ventilator Ventilator 01/16/18 01/16/18 01/16/18 01/17/18 22:00 23:00 23:39 00:00 Temp 99.2 99.2 Pulse 121 132 116 Resp 26 28 30 B/P (MAP) 125/71 (89) 175/93 (120) 138/78 (98) Pulse Ox 92 94 96 98 O2 Delivery Ventilator Ventilator Ventilator Ventilator 01/17/18 01/17/18 01/17/18 01/17/18 00:00 01:00 01:15 01:30 Pulse 110 90 89 Resp 31 B/P (MAP) 177/97 (123) 109/66 (80) 93/58 (70) Pulse Ox 94 O2 Delivery Mechanical Ventilator Ventilator 01/17/18 01/17/18 01/17/18 01/17/18 01:45 01:55 02:00 03:00 Pulse 86 85 80 Resp 26 26 B/P (MAP) 98/56 (70) 92/55 (67) 102/60 (74) Pulse Ox 99 100 100 O2 Delivery Ventilator Ventilator Ventilator 01/17/18 01/17/18 01/17/18 01/17/18 03:57 04:00 04:00 05:00 Temp 99.5 99.5 Pulse 97 81 Resp 29 26 B/P (MAP) 156/79 (104) 117/65 (82) Pulse Ox 99 100 99 O2 Delivery Ventilator Mechanical Ventilator Ventilator Ventilator 01/17/18 01/17/18 01/17/18 01/17/18 05:30 05:45 06:00 06:00 Pulse 80 79 79 Resp 26 B/P (MAP) 119/69 (86) 121/71 (88) 123/71 (88) Pulse Ox 100 100 O2 Delivery Ventilator Ventilator 01/17/18 01/17/18 01/17/18 06:15 06:30 07:03 Pulse 79 82 B/P (MAP) 122/71 (88) 153/93 (113) Pulse Ox 100 O2 Delivery Ventilator Intake and Output 01/16/18 01/16/18 01/17/18 15:00 23:00 07:00 Intake Total 405 ml 2059.81 ml 1631 ml Output Total 1975 ml 2355 ml 1910 ml Balance -1570 ml -295.19 ml -279 ml JOSE APPIAH MD Jan 17, 2018 07:43
--- NOTE | 2018-01-17 08:16 | RAD ---
Portable chest, 01/17/2018: HISTORY: Respiratory failure Comparison is made to yesterday's study. The patient is rotated to the right. The ET tube tip lies 6-7 cm above the darius. A right jugular central venous catheter extends into the superior vena cava. An NG tube extends into the stomach. The heart size is unchanged. There is worsening atelectasis/infiltrate in the right base obscuring the hemidiaphragm. There is mild ongoing left basilar infiltrate with improved definition of the left hemidiaphragm. No definite pleural fluid is seen. IMPRESSION: 1. Stable tube positions. 2. Worsening right basilar atelectasis/infiltrate. 2. Improving left basilar infiltrate. Electronically signed by: Guilherme Duran MD (01/17/2018 8:13 AM) [facility]
[2018-01-17 08:51] LABS: MAGNESIUM 1.7 mg/dL (1.8-2.4); PHOSPHORUS 3.7 mg/dL (2.6-4.7)
[2018-01-17] MEDS: MEROPENEM 500 MG in IV NORMAL SALINE 50ML 50 ML IV SCH ×2 (08:56→21:24)
[2018-01-17] MEDS: DOXYCYCLINE HYCLATE 100 MG in IV DEXTROSE 5% 100ML 100 ML IV SCH ×2 (08:57→21:24)
[2018-01-17] MEDS: FAMOTIDINE 20 MG/2 ML VIAL IVP SCH (09:05)
--- NOTE | 2018-01-17 09:11 | PDOC ---
SUBJECTIVE ROS significantly good UOP , Stable vitals OBJECTIVE Vital Signs Vital Signs Date Time Temp Pulse Resp B/P (MAP) Pulse Ox O2 Delivery O2 Flow Rate FiO2 01/17/18 08:19 100 Ventilator 01/17/18 06:30 82 153/93 (113) 01/17/18 06:00 26 01/17/18 04:00 99.5 99.5 I & 0 Intake and Output 01/17/18 07:00 Intake Total 4095.81 ml Output Total 6240 ml Balance -2144.19 ml Intake Oral 0 ml IV Total 4095.81 ml Output Urine Total 6240 ml PHYSICAL EXAM Physical Exam GENERAL: sedated and intubated. HEENT: ETT and NGT in place. NECK: Supple/ No JVD LUNGS: Diminished aeration in the bases. HEART: Regular rhythm. ABDOMEN: Obese. : Indwelling Cook in place. EXTREMITIES: No edema SKIN: Has tattoos. No rash.scabs in LE NEUROLOGIC: sedated. DIAGNOSIS/ASSESSMENT Assessment & Plan DENISHA - ATN with Oliguria UOP good, Creat improving K, bicarb stable, Currently No Emergent Indication for FOOT GATHERER , Monitor Pancreatitis- Noted elevated Lipase , CT Ordered cw Pancreatitis GI following- Pancreatitis - h/o alcohol and hypertriglyceridemia, no gallstones on US Hypernatremia- Higher after Corrected for Glucose On TPN Recommend IV D5W Fever/ Aspiration pneumonia ID Following Lactic acidosis, improved. Acute encephalopathy with hallucinations and behavioral change. Heavy alcohol use Discussed with RN COMMENT/RELEVANT DATA Meds Current Medications Medications (Trade) Dose Ordered Sig/Yamile Start Time Stop Time Status Last Admin Dose Admin Acetaminophen (Tylenol) 500 mg 1X PRN PRN 01/15/18 09:15 01/15/18 09:32 DC Albumin Human 200 ml @ 200 mls/hr 1X ONCE 01/15/18 09:15 01/15/18 09:32 DC Albuterol/ Ipratropium (Duoneb) 3 ml RTQID 01/12/18 08:00 01/17/18 07:03 3 ML Aspirin (Children'S Aspirin) 324 mg 1X ONCE 01/11/18 13:45 01/11/18 13:46 DC 01/11/18 14:02 324 MG Atropine Sulfate (ATROPINE 0.5mg SYRINGE) 0.5 mg PRN Q5MIN PRN 01/11/18 16:45 Chlorhexidine Gluconate (Peridex) 15 ml BID 01/16/18 21:00 Cancel Dexmedetomidine HCl 200 mcg/ Sodium Chloride 50 ml @ 0 mls/hr CONT PRN 01/11/18 21:00 01/17/18 07:03 35.1 MLS/HR Dextrose 500 ml @ 500 mls/hr 1X ONCE 01/17/18 07:30 01/17/18 08:29 DC Dextrose (Dextrose 50%-Water Syringe) 12.5 gm PRN Q15MIN PRN 01/11/18 21:00 Dextrose/Sodium Chloride 1,000 ml @ 50 mls/hr Q20H 01/16/18 10:00 Diphenhydramine HCl (Benadryl) 25 mg 1X PRN PRN 01/15/18 09:15 01/15/18 09:32 DC Doxycycline Hyclate 100 mg/ Dextrose 100 ml @ 50 mls/hr Q12HR 01/13/18 09:00 01/17/18 08:57 50 MLS/HR Epinephrine HCl (EPINEPHrine SYRINGE) 1 mg STK-MED ONCE 01/11/18 19:00 01/13/18 07:59 DC Famotidine (Pepcid Vial) 20 mg DAILY 01/15/18 09:00 01/16/18 11:45 20 MG Fentanyl Citrate (Fentanyl 2ml Vial) 50 mcg PRN Q1HR PRN 01/11/18 18:45 01/11/18 20:21 50 MCG Gemfibrozil (Lopid) 600 mg BIDBFRMEAL 01/12/18 10:00 01/17/18 07:30 600 MG Haloperidol Lactate (Haldol Inj) 5 mg PRN Q6HRS PRN 01/11/18 16:15 01/16/18 21:24 5 MG Heparin Sodium (Porcine) (Heparin Sodium) 5,000 unit Q8HRS 01/12/18 14:00 01/17/18 05:43 5,000 UNIT Hydralazine HCl (Apresoline Inj) 20 mg PRN TID PRN 01/16/18 15:30 01/16/18 15:27 20 MG Hydromorphone HCl (Dilaudid) 0.4 mg PRN Q1HR PRN 01/11/18 18:45 Info (PHARMACY MONITORING -- do not chart) 1 each PRN DAILY PRN 01/15/18 09:15 Info (Tpn Per Pharmacy) 1 each PRN DAILY PRN 01/14/18 09:45 01/16/18 16:35 1 EACH Insulin Human Lispro (HumaLOG) 0-7 UNITS Q6HRS 01/12/18 00:00 01/17/18 05:42 7 UNITS Labetalol HCl (Normodyne Iv Push) 20 mg PRN Q2HR PRN 01/14/18 15:30 01/16/18 13:57 20 MG Linezolid/Dextrose 300 ml @ 300 mls/hr Q12HR 01/12/18 21:00 01/15/18 12:06 DC 01/15/18 08:39 300 MLS/HR Lorazepam (Ativan) 4 mg PRN Q1HR PRN 01/11/18 18:15 01/15/18 23:04 4 MG Lorazepam 100 mg/ Sodium Chloride 100 ml @ 2 mls/hr CONT PRN 01/16/18 09:45 01/16/18 20:53 6 MLS/HR Magnesium Sulfate 50 ml @ 25 mls/hr 1X ONCE 01/12/18 01:00 01/12/18 02:59 DC 01/12/18 01:27 25 MLS/HR Meropenem 500 mg/ Sodium Chloride 50 ml @ 100 mls/hr Q12HR 01/16/18 08:00 01/17/18 08:56 100 MLS/HR Metronidazole 100 ml @ 100 mls/hr Q8HRS 01/16/18 08:00 01/17/18 05:41 100 MLS/HR Midazolam HCl 100 ml @ 1 mls/hr CONT PRN 01/11/18 18:45 01/16/18 09:52 DC 01/16/18 04:52 15 MLS/HR Morphine Sulfate (Morphine Sulfate) 4 mg PRN Q1HR PRN 01/11/18 18:45 UNV Multivitamins 10 ml/Thiamine HCl 100 mg/Folic Acid 1 mg/Sodium Chloride 1,011.2 ml @ 1,000.088 mls/hr 1X ONCE 01/15/18 08:15 01/15/18 09:15 UNV Nicardipine HCl 50 mg/Sodium Chloride 270 ml @ 27 mls/hr CONT PRN 01/16/18 16:30 01/17/18 00:28 37.5 MLS/HR Olanzapine (ZyPREXA IM) 10 mg 1X ONCE 01/11/18 18:45 01/11/18 18:46 DC 01/11/18 18:42 10 MG Pharmacy Consult (C.diff Med Screen By Rx) 1 each PRN 1X PRN 01/15/18 09:30 Cancel Piperacillin Sod/ Tazobactam Sod (Zosyn Per Pharmacy) 1 each PRN DAILY PRN 01/11/18 20:15 01/13/18 08:00 DC Piperacillin Sod/ Tazobactam Sod 2.25 gm/Sodium Chloride 50 ml @ 100 mls/hr Q8HRS 01/13/18 14:00 01/16/18 07:31 DC 01/16/18 05:59 100 MLS/HR Piperacillin Sod/ Tazobactam Sod 4.5 gm/Sodium Chloride 100 ml @ 200 mls/hr Q6HRS 01/12/18 00:00 01/13/18 07:57 DC 01/13/18 06:48 200 MLS/HR Potassium Acetate 30 meq/Potassium Phosphate 3.4 mmol/Magnesium Sulfate 15 meq/ Calcium Gluconate 10 meq/ Multivitamins 10 ml/Chromium/ Copper/Manganese/ Seleni/Zn 1 ml/ Thiamine HCl 100 mg/Folic Acid 1 mg/Total Parenteral Nutrition/Amino Acids/Dextrose 1,512 ml @ 63 mls/hr TPN CONT 01/16/18 22:00 01/17/18 21:59 01/16/18 21:52 63 MLS/HR Propofol (Diprivan) 1,000 mg STK-MED ONCE 01/11/18 19:00 01/13/18 07:59 DC Sodium Acetate 75 meq/Potassium Chloride 30 meq/ Potassium Phosphate 6.8 mmol/Magnesium Sulfate 13 meq/ Calcium Gluconate 10 meq/ Multivitamins 10 ml/Chromium/ Copper/Manganese/ Seleni/Zn 1 ml/ Thiamine HCl 100 mg/Folic Acid 1 mg/Total Parenteral Nutrition/Amino Acids/Dextro... 1,512 ml @ 63 mls/hr TPN CONT 01/15/18 22:00 01/16/18 21:59 DC 01/15/18 22:07 63 MLS/HR Sodium Bicarbonate (Sodium Bicarb Adult 8.4% Syr) 100 meq 1X ONCE 01/14/18 11:30 01/14/18 11:31 DC 01/14/18 11:34 100 MEQ Sodium Chloride 1,000 ml @ 400 mls/hr Q2H30M PRN 01/15/18 09:06 01/15/18 09:32 DC Sodium Chloride 45 meq/Sodium Acetate 45 meq/ Potassium Chloride 30 meq/ Potassium Phosphate 6.8 mmol/Magnesium Sulfate 10 meq/ Calcium Gluconate 10 meq/ Multivitamins 10 ml/Chromium/ Copper/Manganese/ Seleni/Zn 1 ml/ Thiamine HCl 100 mg/Folic Acid 1 mg/Total Julieta... 1,512 ml @ 63 mls/hr TPN CONT 01/14/18 22:00 01/15/18 21:59 DC 01/14/18 21:37 63 MLS/HR Succinylcholine Chloride (Anectine) 200 mg STK-MED ONCE 01/11/18 19:00 01/13/18 07:59 DC Vancomycin HCl (Vanco Per Pharmacy) 1 each PRN DAILY PRN 01/11/18 20:15 01/12/18 13:14 DC 01/12/18 11:47 1 EACH Vancomycin HCl (Vancomycin Trough Level) 1 each 1X ONCE 01/12/18 20:30 01/12/18 20:30 DC Vancomycin HCl 1.5 gm/Sodium Chloride 500 ml @ 250 mls/hr Q12H 01/12/18 09:00 01/12/18 13:14 DC 01/12/18 08:44 250 MLS/HR Vancomycin HCl 2 gm/Sodium Chloride 500 ml @ 250 mls/hr 1X ONCE 01/11/18 21:00 01/11/18 22:59 DC 01/11/18 21:00 250 MLS/HR Vecuronium [place] (Norcuron Bolus) 6 mg PRN Q4HRS PRN 01/15/18 15:00 01/16/18 22:32 6 MG Lab Laboratory Tests Test 01/16/18 12:08 01/16/18 17:32 01/17/18 00:35 01/17/18 05:39 Glucose (Fingerstick) 239 mg/dL (70-99) 268 mg/dL (70-99) 343 mg/dL (70-99) 332 mg/dL (70-99) Test 01/17/18 06:00 01/17/18 07:00 White Blood Count 5.8 x10^3/uL (4.0-11.0) Red Blood Count 2.89 x10^6/uL (4.30-5.70) Hemoglobin 9.7 g/dL (13.0-17.5) Hematocrit 28.7 % (39.0-53.0) Mean Corpuscular Volume 99 fL (79-100) Mean Corpuscular Hemoglobin 33 pg (25-35) Mean Corpuscular Hemoglobin Concent 34 g/dL (31-37) Red Cell Distribution Width 14.3 % (11.5-14.5) Platelet Count 245 x10^3/uL (140-400) Neutrophils (%) (Auto) 60 % (31-73) Lymphocytes (%) (Auto) 22 % (24-48) Monocytes (%) (Auto) 16 % (0-9) Eosinophils (%) (Auto) 1 % (0-3) Basophils (%) (Auto) 1 % (0-3) Neutrophils # (Auto) 3.5 x10^3uL (1.8-7.7) Lymphocytes # (Auto) 1.3 x10^3/uL (1.0-4.8) Monocytes # (Auto) 1.0 x10^3/uL (0.0-1.1) Eosinophils # (Auto) 0.1 x10^3/uL (0.0-0.7) Basophils # (Auto) 0.1 x10^3/uL (0.0-0.2) Sodium Level 151 mmol/L (136-145) Potassium Level 4.0 mmol/L (3.5-5.1) Chloride Level 114 mmol/L (98-107) Carbon Dioxide Level 23 mmol/L (21-32) Anion Gap 14 (6-14) Blood Urea Nitrogen 56 mg/dL (8-26) Creatinine 4.9 mg/dL (0.7-1.3) Estimated GFR (Cockcroft-Gault) 13.0 BUN/Creatinine Ratio 11 (6-20) Glucose Level 368 mg/dL (70-99) Calcium Level 9.1 mg/dL (8.5-10.1) Phosphorus Level 3.7 mg/dL (2.6-4.7) Magnesium Level 1.7 mg/dL (1.8-2.4) Total Bilirubin 0.4 mg/dL (0.2-1.0) Aspartate Amino Transf (AST/SGOT) 21 U/L (15-37) Alanine Aminotransferase (ALT/SGPT) 25 U/L (16-63) Alkaline Phosphatase 76 U/L (46-116) Total Protein 6.3 g/dL (6.4-8.2) Albumin 1.7 g/dL (3.4-5.0) Albumin/Globulin Ratio 0.4 (1.0-1.7) O2 Saturation 98 % (92-99) Arterial Blood pH 7.35 (7.35-7.45) Arterial Blood pCO2 at Patient Temp 41 mmHg (35-46) Arterial Blood pO2 at Patient Temp 106 mmHg (75-108) Arterial Blood HCO3 22 mmol/L (21-28) Arterial Blood Base Excess -3 mmol/L (-3-3) FiO2 40 Results All relevant outside records, renal labs, imaging studies, telemetry/EKG's were reviewed. NERISSA BURR MD Jan 17, 2018 09:11
--- NOTE | 2018-01-17 09:33 | PDOC ---
Infectious Disease Note Subjective Subjective Sedated Remains intubated/vent. FiO2 40% Fever last evening - Tmax 101.3 TPN No vomiting or diarrhea reported ROS ROS unobtainable as patient is intubated and sedated Vital Sign Vital Signs Vital Signs Date Time Temp Pulse Resp B/P (MAP) Pulse Ox O2 Delivery O2 Flow Rate FiO2 01/17/18 09:02 100 01/17/18 08:19 Ventilator 01/17/18 06:30 82 153/93 (113) 01/17/18 06:00 26 01/17/18 04:00 99.5 99.5 Physical Exam PHYSICAL EXAM GENERAL: sedated and intubated. HEENT: Pupils small. ETT and NGT in place. LUNGS: Diminished aeration in the bases. HEART: S1 S2 Regular rhythm. ABDOMEN: Obese. BS active, so grimace or guarding to palpation. GENITOURINARY: Indwelling Cook in place. EXTREMITIES: 1 plus edema or cyanosis. SKIN: He has tattoos. Warm, Multiple small scabs on both legs. NEUROLOGIC: Unresponsive/sedated. RIJ - clean. Labs Lab Laboratory Tests Test 01/16/18 12:08 01/16/18 17:32 01/17/18 00:35 01/17/18 05:39 Glucose (Fingerstick) 239 mg/dL (70-99) 268 mg/dL (70-99) 343 mg/dL (70-99) 332 mg/dL (70-99) Test 01/17/18 06:00 01/17/18 07:00 White Blood Count 5.8 x10^3/uL (4.0-11.0) Red Blood Count 2.89 x10^6/uL (4.30-5.70) Hemoglobin 9.7 g/dL (13.0-17.5) Hematocrit 28.7 % (39.0-53.0) Mean Corpuscular Volume 99 fL (79-100) Mean Corpuscular Hemoglobin 33 pg (25-35) Mean Corpuscular Hemoglobin Concent 34 g/dL (31-37) Red Cell Distribution Width 14.3 % (11.5-14.5) Platelet Count 245 x10^3/uL (140-400) Neutrophils (%) (Auto) 60 % (31-73) Lymphocytes (%) (Auto) 22 % (24-48) Monocytes (%) (Auto) 16 % (0-9) Eosinophils (%) (Auto) 1 % (0-3) Basophils (%) (Auto) 1 % (0-3) Neutrophils # (Auto) 3.5 x10^3uL (1.8-7.7) Lymphocytes # (Auto) 1.3 x10^3/uL (1.0-4.8) Monocytes # (Auto) 1.0 x10^3/uL (0.0-1.1) Eosinophils # (Auto) 0.1 x10^3/uL (0.0-0.7) Basophils # (Auto) 0.1 x10^3/uL (0.0-0.2) Sodium Level 151 mmol/L (136-145) Potassium Level 4.0 mmol/L (3.5-5.1) Chloride Level 114 mmol/L (98-107) Carbon Dioxide Level 23 mmol/L (21-32) Anion Gap 14 (6-14) Blood Urea Nitrogen 56 mg/dL (8-26) Creatinine 4.9 mg/dL (0.7-1.3) Estimated GFR (Cockcroft-Gault) 13.0 BUN/Creatinine Ratio 11 (6-20) Glucose Level 368 mg/dL (70-99) Calcium Level 9.1 mg/dL (8.5-10.1) Phosphorus Level 3.7 mg/dL (2.6-4.7) Magnesium Level 1.7 mg/dL (1.8-2.4) Total Bilirubin 0.4 mg/dL (0.2-1.0) Aspartate Amino Transf (AST/SGOT) 21 U/L (15-37) Alanine Aminotransferase (ALT/SGPT) 25 U/L (16-63) Alkaline Phosphatase 76 U/L (46-116) Total Protein 6.3 g/dL (6.4-8.2) Albumin 1.7 g/dL (3.4-5.0) Albumin/Globulin Ratio 0.4 (1.0-1.7) O2 Saturation 98 % (92-99) Arterial Blood pH 7.35 (7.35-7.45) Arterial Blood pCO2 at Patient Temp 41 mmHg (35-46) Arterial Blood pO2 at Patient Temp 106 mmHg (75-108) Arterial Blood HCO3 22 mmol/L (21-28) Arterial Blood Base Excess -3 mmol/L (-3-3) FiO2 40 IMPRESSION: 1. Stable tube positions. 2. Worsening right basilar atelectasis/infiltrate. 2. Improving left basilar infiltrate. Micro Objective Assessment Pancreatitis Fever likely sec to above/+- aspiration/? infection - better DENISHA - stable Aspiration pneumonia. - Group A strep/Strep pneumo/legionella neg. Gram stain from sputum GPC in pairs from 01/12, no growth Acute encephalopathy with hallucinations and behavioral change Lactic acidosis, improved. Heavy alcohol use. Hyperglycemia. Worsening back pain with urinary incontinence prior to admission. History of methicillin-resistant Staphylococcus aureus - in back Morbid obesity Plan Plan of Care Meropenem (started 01/16) and doxy -Previously on Zosyn Check C-diff with colitis although likely reactive - Flagyl May need repeat CT abd Monitor labs/temp Repeat BC from 01/16 in process D/w nursing Critically ill Attending Co-Sign The patient was seen and interviewed as well as examined at the bedside. The chart was reviewed. The case was discussed. Agree with the plan of care. IMTIAZ MUELLER APRN Jan 17, 2018 09:33 ALAN KUMARI MD Jan 17, 2018 11:16
[2018-01-17] MEDS: INSULIN GLARGINE 300 UNITS/3 ML INSULN.PEN. SQ SCH (10:22)
[2018-01-17] MEDS: VECURONIUM BOLUS 10 MG VIAL. IV PRN ×2 (10:34→12:41)
[2018-01-17] MEDS: LABETALOL 20 MG/4 ML DISP.SYRIN. IVP PRN (10:39)
[2018-01-17] MEDS: TPN PER PHARMACY MC PRN (12:57)
--- NOTE | 2018-01-17 12:58 | PDOC ---
PULMONARY PROGRESS NOTES Subjective remains on AC mode needs a lot of sedatives to control agitation/ sedation holiday failed 01/15 Vitals Vital Signs Date Time Temp Pulse Resp B/P (MAP) Pulse Ox O2 Delivery O2 Flow Rate FiO2 01/17/18 12:47 100 Ventilator 01/17/18 12:00 98.0 114 235/121 (159) 98.0 01/17/18 06:00 26 Lungs: Other (decrease bs) Cardiovascular: S1 Abdomen: Soft Extremities: Other (1+edema) Skin: Warm Labs Laboratory Tests Test 01/15/18 17:50 01/16/18 00:02 01/16/18 04:45 01/16/18 05:56 Glucose (Fingerstick) 208 mg/dL (70-99) 191 mg/dL (70-99) 243 mg/dL (70-99) White Blood Count 6.1 x10^3/uL (4.0-11.0) Red Blood Count 3.11 x10^6/uL (4.30-5.70) Hemoglobin 10.2 g/dL (13.0-17.5) Hematocrit 31.1 % (39.0-53.0) Mean Corpuscular Volume 100 fL (79-100) Mean Corpuscular Hemoglobin 33 pg (25-35) Mean Corpuscular Hemoglobin Concent 33 g/dL (31-37) Red Cell Distribution Width 14.6 % (11.5-14.5) Platelet Count 214 x10^3/uL (140-400) Neutrophils (%) (Auto) 70 % (31-73) Lymphocytes (%) (Auto) 14 % (24-48) Monocytes (%) (Auto) 14 % (0-9) Eosinophils (%) (Auto) 2 % (0-3) Basophils (%) (Auto) 1 % (0-3) Neutrophils # (Auto) 4.3 x10^3uL (1.8-7.7) Lymphocytes # (Auto) 0.8 x10^3/uL (1.0-4.8) Monocytes # (Auto) 0.8 x10^3/uL (0.0-1.1) Eosinophils # (Auto) 0.1 x10^3/uL (0.0-0.7) Basophils # (Auto) 0.0 x10^3/uL (0.0-0.2) Sodium Level 149 mmol/L (136-145) Potassium Level 4.3 mmol/L (3.5-5.1) Chloride Level 112 mmol/L (98-107) Carbon Dioxide Level 23 mmol/L (21-32) Anion Gap 14 (6-14) Blood Urea Nitrogen 49 mg/dL (8-26) Creatinine 5.7 mg/dL (0.7-1.3) Estimated GFR (Cockcroft-Gault) 10.9 Glucose Level 280 mg/dL (70-99) Calcium Level 8.5 mg/dL (8.5-10.1) Phosphorus Level 4.5 mg/dL (2.6-4.7) Magnesium Level 1.6 mg/dL (1.8-2.4) Test 01/16/18 07:05 01/16/18 12:08 01/16/18 17:32 01/17/18 00:35 O2 Saturation 98 % (92-99) Arterial Blood pH 7.34 (7.35-7.45) Arterial Blood pCO2 at Patient Temp 40 mmHg (35-46) Arterial Blood pO2 at Patient Temp 121 mmHg (75-108) Arterial Blood HCO3 21 mmol/L (21-28) Arterial Blood Base Excess -4 mmol/L (-3-3) FiO2 50% vent Glucose (Fingerstick) 239 mg/dL (70-99) 268 mg/dL (70-99) 343 mg/dL (70-99) Test 01/17/18 05:39 01/17/18 06:00 01/17/18 07:00 01/17/18 10:18 Glucose (Fingerstick) 332 mg/dL (70-99) 312 mg/dL (70-99) White Blood Count 5.8 x10^3/uL (4.0-11.0) Red Blood Count 2.89 x10^6/uL (4.30-5.70) Hemoglobin 9.7 g/dL (13.0-17.5) Hematocrit 28.7 % (39.0-53.0) Mean Corpuscular Volume 99 fL (79-100) Mean Corpuscular Hemoglobin 33 pg (25-35) Mean Corpuscular Hemoglobin Concent 34 g/dL (31-37) Red Cell Distribution Width 14.3 % (11.5-14.5) Platelet Count 245 x10^3/uL (140-400) Neutrophils (%) (Auto) 60 % (31-73) Lymphocytes (%) (Auto) 22 % (24-48) Monocytes (%) (Auto) 16 % (0-9) Eosinophils (%) (Auto) 1 % (0-3) Basophils (%) (Auto) 1 % (0-3) Neutrophils # (Auto) 3.5 x10^3uL (1.8-7.7) Lymphocytes # (Auto) 1.3 x10^3/uL (1.0-4.8) Monocytes # (Auto) 1.0 x10^3/uL (0.0-1.1) Eosinophils # (Auto) 0.1 x10^3/uL (0.0-0.7) Basophils # (Auto) 0.1 x10^3/uL (0.0-0.2) Sodium Level 151 mmol/L (136-145) Potassium Level 4.0 mmol/L (3.5-5.1) Chloride Level 114 mmol/L (98-107) Carbon Dioxide Level 23 mmol/L (21-32) Anion Gap 14 (6-14) Blood Urea Nitrogen 56 mg/dL (8-26) Creatinine 4.9 mg/dL (0.7-1.3) Estimated GFR (Cockcroft-Gault) 13.0 BUN/Creatinine Ratio 11 (6-20) Glucose Level 368 mg/dL (70-99) Calcium Level 9.1 mg/dL (8.5-10.1) Phosphorus Level 3.7 mg/dL (2.6-4.7) Magnesium Level 1.7 mg/dL (1.8-2.4) Total Bilirubin 0.4 mg/dL (0.2-1.0) Aspartate Amino Transf (AST/SGOT) 21 U/L (15-37) Alanine Aminotransferase (ALT/SGPT) 25 U/L (16-63) Alkaline Phosphatase 76 U/L (46-116) Total Protein 6.3 g/dL (6.4-8.2) Albumin 1.7 g/dL (3.4-5.0) Albumin/Globulin Ratio 0.4 (1.0-1.7) O2 Saturation 98 % (92-99) Arterial Blood pH 7.35 (7.35-7.45) Arterial Blood pCO2 at Patient Temp 41 mmHg (35-46) Arterial Blood pO2 at Patient Temp 106 mmHg (75-108) Arterial Blood HCO3 22 mmol/L (21-28) Arterial Blood Base Excess -3 mmol/L (-3-3) FiO2 40 Laboratory Tests Test 01/16/18 17:32 01/17/18 00:35 01/17/18 05:39 01/17/18 06:00 Glucose (Fingerstick) 268 mg/dL (70-99) 343 mg/dL (70-99) 332 mg/dL (70-99) White Blood Count 5.8 x10^3/uL (4.0-11.0) Red Blood Count 2.89 x10^6/uL (4.30-5.70) Hemoglobin 9.7 g/dL (13.0-17.5) Hematocrit 28.7 % (39.0-53.0) Mean Corpuscular Volume 99 fL (79-100) Mean Corpuscular Hemoglobin 33 pg (25-35) Mean Corpuscular Hemoglobin Concent 34 g/dL (31-37) Red Cell Distribution Width 14.3 % (11.5-14.5) Platelet Count 245 x10^3/uL (140-400) Neutrophils (%) (Auto) 60 % (31-73) Lymphocytes (%) (Auto) 22 % (24-48) Monocytes (%) (Auto) 16 % (0-9) Eosinophils (%) (Auto) 1 % (0-3) Basophils (%) (Auto) 1 % (0-3) Neutrophils # (Auto) 3.5 x10^3uL (1.8-7.7) Lymphocytes # (Auto) 1.3 x10^3/uL (1.0-4.8) Monocytes # (Auto) 1.0 x10^3/uL (0.0-1.1) Eosinophils # (Auto) 0.1 x10^3/uL (0.0-0.7) Basophils # (Auto) 0.1 x10^3/uL (0.0-0.2) Sodium Level 151 mmol/L (136-145) Potassium Level 4.0 mmol/L (3.5-5.1) Chloride Level 114 mmol/L (98-107) Carbon Dioxide Level 23 mmol/L (21-32) Anion Gap 14 (6-14) Blood Urea Nitrogen 56 mg/dL (8-26) Creatinine 4.9 mg/dL (0.7-1.3) Estimated GFR (Cockcroft-Gault) 13.0 BUN/Creatinine Ratio 11 (6-20) Glucose Level 368 mg/dL (70-99) Calcium Level 9.1 mg/dL (8.5-10.1) Phosphorus Level 3.7 mg/dL (2.6-4.7) Magnesium Level 1.7 mg/dL (1.8-2.4) Total Bilirubin 0.4 mg/dL (0.2-1.0) Aspartate Amino Transf (AST/SGOT) 21 U/L (15-37) Alanine Aminotransferase (ALT/SGPT) 25 U/L (16-63) Alkaline Phosphatase 76 U/L (46-116) Total Protein 6.3 g/dL (6.4-8.2) Albumin 1.7 g/dL (3.4-5.0) Albumin/Globulin Ratio 0.4 (1.0-1.7) Test 01/17/18 07:00 01/17/18 10:18 O2 Saturation 98 % (92-99) Arterial Blood pH 7.35 (7.35-7.45) Arterial Blood pCO2 at Patient Temp 41 mmHg (35-46) Arterial Blood pO2 at Patient Temp 106 mmHg (75-108) Arterial Blood HCO3 22 mmol/L (21-28) Arterial Blood Base Excess -3 mmol/L (-3-3) FiO2 40 Glucose (Fingerstick) 312 mg/dL (70-99) Medications Active Scripts Medications Dose Route/Sig Max Daily Dose Days Date Category [hemp botanicals] 01/12/18 Reported Maxitrol Eye Drops (Brandon/Polymyx B Sulf/Dexameth) 5 Ml Drops.susp 1 Drop OD QID 01/12/18 Reported Multivitamins (Multivitamin) 1 Each Tablet 1 Tab PO DAILY 01/12/18 Reported Magnesium (Magnesium Oxide) 400 Mg Capsule 1 Cap PO DAILY 01/12/18 Reported Calcium (Calcium Carbonate) 500 Mg Tab.chew 500 Mg PO 01/12/18 Reported Lansoprazole 30 Mg Capsule.dr 1 Cap PO DAILY 01/12/18 Reported Losartan Potassium 25 Mg Tablet 25 Mg PO DAILY 01/12/18 Reported Tizanidine Hcl 4 Mg Tablet 1 Tab PO TID 01/12/18 Reported Tramadol Hcl 50 Mg Tablet 50 Mg PO DAILY PRN 01/12/18 Reported Bystolic (Nebivolol Hcl) 20 Mg Tablet 20 Mg PO DAILY 01/12/18 Reported Cymbalta (Duloxetine Hcl) 20 Mg Capsule.dr 1 Cap PO DAILY 01/12/18 Reported Valacyclovir (Valacyclovir Hcl) 1,000 Mg Tablet 1 Tab PO DAILY 01/12/18 Reported Ibuprofen 400 Mg Tablet 400 Mg PO PRN Q6HRS PRN 09/21/15 Reported Bystolic (Nebivolol) 10 Mg Tablet 20 Mg PO DAILY 09/21/15 Reported Amlodipine Besylate 10 Mg Tablet 10 Mg PO DAILY 09/21/15 Reported Comments CXR 01/17 IMPRESSION: 1. Stable tube positions. 2. Worsening right basilar atelectasis/infiltrate. 2. Improving left basilar infiltrate. Impression . 1. Acute respiratory failure./ multi-factorial 2. Abnormal chest x-ray as above 3. Sepsis . source pancreatitis 4. Severe agitation, secondary to alcohol withdrawal /sepsis/ needing multiple sedatives and prn paralytics/ added ativan drip 5. alcoholic pancreatitis 6. No obvious CHF/ normal EF 7. History of alcohol abuse. Level neg. Positive for Marihuana 8. Obesity? obstructive sleep apnea-hypopnea syndrome. 9. DENISHA,, better 10. Combined met/resp acidosis. improved Plan . 1. Titrate FiO2 to keep O2 saturation 94%.AC mode. not ready for weaning/ needing heavy amounts of sedation 2. change vent setting per ABG./ prn bicarb 3. bronchodilator. 4. s/p fluid bolus. 5. ID rec 6. Renal rec 7. Pepcid for stress ulcer prophylaxis. 8. Lovenox 9. follow amylase/ lipase 10. Control blood sugar. 13. The findings and recommendations were discussed with RN./ RT AJ FINK MD Jan 17, 2018 12:58
[2018-01-17] MEDS: IV DEXTROSE 5% 1,000 ML IV SCH (14:11)
--- NOTE | 2018-01-17 14:12 | PDOC ---
Subjective: Subjective: Pt on vent- history obtained through pt's nurse. Pt has been afebrile recently. He is still getting agitated. His sodium was elevated so NS fluids are being switched. Blood glucose levels have still been elevated. Pt has been urinating frequently. He has started Lantus and is also being given Humalog. He has not had BM today. Objective: Vital Signs: Vital Signs Date Time Temp Pulse Resp B/P (MAP) Pulse Ox O2 Delivery O2 Flow Rate FiO2 01/17/18 12:47 100 Ventilator 01/17/18 12:00 98.0 114 235/121 (159) 98.0 01/17/18 06:00 26 Labs: Laboratory Tests Test 01/16/18 17:32 01/17/18 00:35 01/17/18 05:39 01/17/18 06:00 Glucose (Fingerstick) 268 mg/dL 343 mg/dL 332 mg/dL White Blood Count 5.8 x10^3/uL Red Blood Count 2.89 x10^6/uL Hemoglobin 9.7 g/dL Hematocrit 28.7 % Mean Corpuscular Volume 99 fL Mean Corpuscular Hemoglobin 33 pg Mean Corpuscular Hemoglobin Concent 34 g/dL Red Cell Distribution Width 14.3 % Platelet Count 245 x10^3/uL Neutrophils (%) (Auto) 60 % Lymphocytes (%) (Auto) 22 % Monocytes (%) (Auto) 16 % Eosinophils (%) (Auto) 1 % Basophils (%) (Auto) 1 % Neutrophils # (Auto) 3.5 x10^3uL Lymphocytes # (Auto) 1.3 x10^3/uL Monocytes # (Auto) 1.0 x10^3/uL Eosinophils # (Auto) 0.1 x10^3/uL Basophils # (Auto) 0.1 x10^3/uL Sodium Level 151 mmol/L Potassium Level 4.0 mmol/L Chloride Level 114 mmol/L Carbon Dioxide Level 23 mmol/L Anion Gap 14 Blood Urea Nitrogen 56 mg/dL Creatinine 4.9 mg/dL Estimated GFR (Cockcroft-Gault) 13.0 BUN/Creatinine Ratio 11 Glucose Level 368 mg/dL Calcium Level 9.1 mg/dL Phosphorus Level 3.7 mg/dL Magnesium Level 1.7 mg/dL Total Bilirubin 0.4 mg/dL Aspartate Amino Transf (AST/SGOT) 21 U/L Alanine Aminotransferase (ALT/SGPT) 25 U/L Alkaline Phosphatase 76 U/L Total Protein 6.3 g/dL Albumin 1.7 g/dL Albumin/Globulin Ratio 0.4 Test 01/17/18 07:00 01/17/18 10:18 O2 Saturation 98 % Arterial Blood pH 7.35 Arterial Blood pCO2 at Patient Temp 41 mmHg Arterial Blood pO2 at Patient Temp 106 mmHg Arterial Blood HCO3 22 mmol/L Arterial Blood Base Excess -3 mmol/L FiO2 40 Glucose (Fingerstick) 312 mg/dL Current Medications Medications (Trade) Dose Ordered Sig/Yamile Route PRN Reason Start Time Stop Time Status Last Admin Dose Admin Lorazepam (Ativan) 1 mg 1X ONCE IV 01/11/18 12:30 01/11/18 12:31 DC 01/11/18 12:25 Lorazepam (Ativan) 2 mg 1X ONCE IV 01/11/18 12:45 01/11/18 12:46 DC 01/11/18 13:03 Dextrose/Sodium Chloride 1,000 ml @ 0 mls/hr 1X ONCE IV 01/11/18 13:00 01/11/18 13:16 DC Sodium Chloride 1,000 ml @ 1,000 mls/hr 1X ONCE IV 01/11/18 13:30 01/11/18 14:29 DC 01/11/18 13:41 Sodium Chloride 1,000 ml @ 1,000 mls/hr 1X ONCE IV 01/11/18 13:30 01/11/18 14:29 DC 01/11/18 13:42 Lorazepam (Ativan) 1 mg 1X ONCE IV 01/11/18 13:30 01/11/18 13:31 DC 01/11/18 15:08 Lorazepam (Ativan) 1 mg 1X ONCE IV 01/11/18 13:30 01/11/18 13:33 DC 01/11/18 13:43 Aspirin (Children'S Aspirin) 324 mg 1X ONCE PO 01/11/18 13:45 01/11/18 13:46 DC 01/11/18 14:02 Haloperidol Lactate (Haldol Inj) 5 mg PRN Q6HRS PRN IVP SEVERE AGITATION 01/11/18 16:15 01/16/18 21:24 Lorazepam (Ativan) 4 mg PRN Q4HRS PRN IV ANXIETY / AGITATION 01/11/18 16:15 01/16/18 09:32 Multivitamins 10 ml/Thiamine HCl 100 mg/Folic Acid 1 mg/Sodium Chloride 1,011.2 ml @ 125 mls/ hr DAILY IV 01/11/18 17:00 01/14/18 21:59 DC 01/14/18 08:19 Dexmedetomidine HCl 200 mcg/ Sodium Chloride 50 ml @ 0 mls/hr CONT PRN IV PER PROTOCOL 01/11/18 16:45 01/11/18 18:38 DC 01/11/18 17:00 Sodium Chloride 500 ml @ 500 mls/hr 1X PRN PRN IV SEE COMMENTS 01/11/18 16:45 Atropine Sulfate (ATROPINE 0.5mg SYRINGE) 0.5 mg PRN Q5MIN PRN IV SEE COMMENTS 01/11/18 16:45 Lorazepam (Ativan) 4 mg PRN Q1HR PRN PO For CIWA 8-14 01/11/18 18:15 Lorazepam (Ativan) 8 mg PRN Q1HR PRN PO For CIWA 15 or greater 01/11/18 18:15 Lorazepam (Ativan) 2 mg PRN Q1HR PRN IV For CIWA 8-14 01/11/18 18:15 Lorazepam (Ativan) 4 mg PRN Q1HR PRN IV For CIWA 15 or greater 01/11/18 18:15 01/15/18 23:04 Diphenhydramine HCl (Benadryl) 25 mg PRN Q15MIN PRN IVP EPS symptoms 2'Haldol admin 01/11/18 18:15 Olanzapine (ZyPREXA IM) 10 mg 1X ONCE IM 01/11/18 18:45 01/11/18 18:46 DC 01/11/18 18:42 Dexmedetomidine HCl 200 mcg/ Sodium Chloride 50 ml @ 7 mls/hr CONT PRN IV PER PROTOCOL 01/11/18 18:38 01/11/18 21:19 DC Propofol 100 ml @ As Directed STK-MED ONCE IV 01/11/18 18:43 01/11/18 18:44 DC Succinylcholine Chloride (Anectine) 200 mg STK-MED ONCE .ROUTE 01/11/18 18:44 01/11/18 18:45 DC Fentanyl Citrate 30 ml @ 2.5 mls/hr CONT PRN IV PER PROTOCOL 01/11/18 19:00 01/17/18 09:02 Propofol 100 ml @ 4.2 mls/hr CONT PRN IV PER PROTOCOL 01/11/18 18:45 Cancel Fentanyl Citrate (Fentanyl 2ml Vial) 25 mcg PRN Q1HR PRN IV SEE COMMENTS. 01/11/18 18:45 Fentanyl Citrate (Fentanyl 2ml Vial) 50 mcg PRN Q1HR PRN IV SEE COMMENTS. 01/11/18 18:45 01/11/18 20:21 Morphine Sulfate (Morphine Sulfate) 2 mg PRN Q1HR PRN IV SEE COMMENTS. 01/11/18 18:45 Morphine Sulfate (Morphine Sulfate) 4 mg PRN Q1HR PRN IV SEE COMMENTS. 01/11/18 18:45 Hydromorphone HCl (Dilaudid) 0.2 mg PRN Q1HR PRN IV SEE COMMENTS. 01/11/18 18:45 Hydromorphone HCl (Dilaudid) 0.4 mg PRN Q1HR PRN IV SEE COMMENTS. 01/11/18 18:45 Morphine Sulfate (Morphine Sulfate) 2 mg PRN Q1HR PRN IV 01/11/18 18:45 UNV Morphine Sulfate (Morphine Sulfate) 4 mg PRN Q1HR PRN IV 01/11/18 18:45 UNV Midazolam HCl 100 ml @ 1 mls/hr CONT PRN IV PER PROTOCOL 01/11/18 18:45 01/16/18 09:52 DC 01/16/18 04:52 Epinephrine HCl (EPINEPHrine SYRINGE) 1 mg STK-MED ONCE .ROUTE 01/11/18 18:56 01/11/18 18:57 DC Propofol 100 ml @ 2.103 mls/ hr CONT PRN IV SEE I/O RECORD 01/11/18 19:00 01/11/18 20:23 Vecuronium [place] (Norcuron Bolus) 10 mg STK-MED ONCE IV 01/11/18 19:02 01/11/18 19:03 DC Vancomycin HCl (Vanco Per Pharmacy) 1 each PRN DAILY PRN MC SEE COMMENTS 01/11/18 20:15 01/12/18 13:14 DC 01/12/18 11:47 Piperacillin Sod/ Tazobactam Sod (Zosyn Per Pharmacy) 1 each PRN DAILY PRN MC SEE COMMENTS 01/11/18 20:15 01/13/18 08:00 DC Piperacillin Sod/ Tazobactam Sod 4.5 gm/Sodium Chloride 100 ml @ 200 mls/hr Q6HRS IV 01/12/18 00:00 01/13/18 07:57 DC 01/13/18 06:48 Vancomycin HCl 2 gm/Sodium Chloride 500 ml @ 250 mls/hr 1X ONCE IV 01/11/18 21:00 01/11/18 22:59 DC 01/11/18 21:00 Insulin Human Lispro (HumaLOG) 0-7 UNITS Q6HRS SQ 01/12/18 00:00 01/17/18 05:42 Dextrose (Dextrose 50%-Water Syringe) 12.5 gm PRN Q15MIN PRN IV SEE COMMENTS 01/11/18 21:00 Sodium Chloride 1,000 ml @ 100 mls/hr Q10H IV 01/11/18 21:00 01/16/18 09:47 DC 01/16/18 03:59 Dexmedetomidine HCl 200 mcg/ Sodium Chloride 50 ml @ 0 mls/hr CONT PRN IV PER PROTOCOL 01/11/18 21:00 01/17/18 10:12 Acetaminophen (Tylenol) 650 mg PRN Q6HRS PRN PEG MILD PAIN / TEMP 01/11/18 21:30 01/16/18 21:24 Magnesium Sulfate 50 ml @ 25 mls/hr 1X ONCE IV 01/12/18 01:00 01/12/18 02:59 DC 01/12/18 01:27 Sodium Chloride 1,000 ml @ 1,000 mls/hr 1X ONCE IV 01/12/18 04:30 01/12/18 05:29 DC 01/12/18 01:00 Vancomycin HCl 1.5 gm/Sodium Chloride 500 ml @ 250 mls/hr Q12H IV 01/12/18 09:00 01/12/18 13:14 DC 01/12/18 08:44 Vancomycin HCl (Vancomycin Trough Level) 1 each 1X ONCE MC 01/12/18 20:30 01/12/18 20:30 DC Sodium Chloride 500 ml @ 500 mls/hr 1X ONCE IV 01/12/18 07:00 01/12/18 07:59 DC 01/12/18 07:26 Famotidine (Pepcid Vial) 20 mg BID IVP 01/12/18 09:00 01/14/18 09:40 DC 01/13/18 20:49 Albuterol/ Ipratropium (Duoneb) 3 ml RTQID NEB 01/12/18 08:00 01/17/18 12:47 Heparin Sodium (Porcine) (Heparin Sodium) 5,000 unit Q8HRS SQ 01/12/18 14:00 01/17/18 05:43 Gemfibrozil (Lopid) 600 mg BIDBFRMEAL PO 01/12/18 10:00 01/17/18 07:30 Linezolid/Dextrose 300 ml @ 300 mls/hr Q12HR IV 01/12/18 21:00 01/15/18 12:06 DC 01/15/18 08:39 Vecuronium [place] (Norcuron Bolus) 10 mg STK-MED ONCE IV 01/11/18 19:00 01/13/18 07:59 DC Succinylcholine Chloride (Anectine) 200 mg STK-MED ONCE .ROUTE 01/11/18 19:00 01/13/18 07:59 DC Propofol (Diprivan) 1,000 mg STK-MED ONCE IV 01/11/18 19:00 01/13/18 07:59 DC Epinephrine HCl (EPINEPHrine SYRINGE) 1 mg STK-MED ONCE .ROUTE 01/11/18 19:00 01/13/18 07:59 DC Piperacillin Sod/ Tazobactam Sod 2.25 gm/Sodium Chloride 50 ml @ 100 mls/hr Q8HRS IV 01/13/18 14:00 01/16/18 07:31 DC 01/16/18 05:59 Doxycycline Hyclate 100 mg/ Dextrose 100 ml @ 50 mls/hr Q12HR IV 01/13/18 09:00 01/17/18 08:57 Sodium Bicarbonate (Sodium Bicarb Adult 8.4% Syr) 100 meq 1X ONCE IV 01/13/18 09:15 01/13/18 09:16 DC 01/13/18 09:12 Sodium Chloride 1,000 ml @ 1,000 mls/hr Q1H IV 01/13/18 12:30 Cancel Sodium Chloride 1,000 ml @ 1,000 mls/hr 1X ONCE IV 01/13/18 12:15 01/13/18 13:14 DC 01/13/18 12:15 Vecuronium [place] (Norcuron Bolus) 6 mg PRN Q6HRS PRN IV VENT ASYNCHRONY 01/13/18 12:30 01/15/18 14:51 DC 01/15/18 10:23 Info (Tpn Per Pharmacy) 1 each PRN DAILY PRN MC SEE COMMENTS 01/14/18 09:45 01/17/18 12:57 Famotidine (Pepcid Vial) 20 mg DAILY IVP 01/15/18 09:00 01/17/18 09:05 Sodium Bicarbonate (Sodium Bicarb Adult 8.4% Syr) 50 meq STK-MED ONCE .ROUTE 01/14/18 11:12 01/14/18 11:13 DC Labetalol HCl (Normodyne Iv Push) 10 mg PRN Q4HRS PRN IVP HYPERTENSION, SEE COMMENTS 01/14/18 11:30 01/17/18 10:39 Sodium Bicarbonate (Sodium Bicarb Adult 8.4% Syr) 100 meq 1X ONCE IV 01/14/18 11:30 01/14/18 11:31 DC 01/14/18 11:34 Sodium Chloride 45 meq/Sodium Acetate 45 meq/ Potassium Chloride 30 meq/ Potassium Phosphate 6.8 mmol/Magnesium Sulfate 10 meq/ Calcium Gluconate 10 meq/ Multivitamins 10 ml/Chromium/ Copper/Manganese/ Seleni/Zn 1 ml/ Thiamine HCl 100 mg/Folic Acid 1 mg/Total Julieta... 1,512 ml @ 63 mls/hr TPN CONT IV 01/14/18 22:00 01/15/18 21:59 DC 01/14/18 21:37 Labetalol HCl (Normodyne Iv Push) 20 mg PRN Q2HR PRN IVP HYPERTENSION, SEE COMMENTS 01/14/18 15:30 01/16/18 13:57 Multivitamins 10 ml/Thiamine HCl 100 mg/Folic Acid 1 mg/Sodium Chloride 1,011.2 ml @ 1,000.088 mls/hr 1X ONCE IV 01/15/18 08:15 01/15/18 09:15 UNV Sodium Chloride 1,000 ml @ 1,000 mls/hr Q1H PRN IV hypotension 01/15/18 09:06 01/15/18 09:32 DC Albumin Human 200 ml @ 200 mls/hr 1X ONCE IV 01/15/18 09:15 10/17/18 09:32 DC Acetaminophen (Tylenol) 500 mg 1X PRN PRN PO MILD PAIN / TEMP 01/15/18 09:15 01/15/18 09:32 DC Diphenhydramine HCl (Benadryl) 25 mg 1X PRN PRN IV ITCHING 01/15/18 09:15 01/15/18 09:32 DC Pharmacy Consult (Cristóbal Med Screen By Rx) 1 each PRN 1X PRN MC SEE COMMENTS 01/15/18 09:30 Cancel Sodium Chloride 1,000 ml @ 400 mls/hr Q2H30M PRN IV PATENCY 01/15/18 09:06 01/15/18 09:32 DC Info (PHARMACY MONITORING -- do not chart) 1 each PRN DAILY PRN MC SEE COMMENTS 01/15/18 09:15 Sodium Acetate 75 meq/Potassium Chloride 30 meq/ Potassium Phosphate 6.8 mmol/Magnesium Sulfate 13 meq/ Calcium Gluconate 10 meq/ Multivitamins 10 ml/Chromium/ Copper/Manganese/ Seleni/Zn 1 ml/ Thiamine HCl 100 mg/Folic Acid 1 mg/Total Parenteral Nutrition/Amino Acids/Dextro... 1,492 ml @ 62.167 mls/ hr TPN CONT IV 01/15/18 22:00 01/15/18 22:00 DC Sodium Acetate 75 meq/Potassium Chloride 30 meq/ Potassium Phosphate 6.8 mmol/Magnesium Sulfate 13 meq/ Calcium Gluconate 10 meq/ Multivitamins 10 ml/Chromium/ Copper/Manganese/ Seleni/Zn 1 ml/ Thiamine HCl 100 mg/Folic Acid 1 mg/Total Parenteral Nutrition/Amino Acids/Dextro... 1,512 ml @ 63 mls/hr TPN CONT IV 01/15/18 22:00 01/16/18 21:59 DC 01/15/18 22:07 Vecuronium [place] (Norcuron Bolus) 6 mg PRN Q4HRS PRN IV VENT ASYNCHRONY 01/15/18 15:00 01/17/18 12:41 Meropenem 500 mg/ Sodium Chloride 50 ml @ 100 mls/hr Q12HR IV 01/16/18 08:00 01/17/18 08:56 Metronidazole 100 ml @ 100 mls/hr Q8HRS IV 01/16/18 08:00 01/17/18 05:41 Chlorhexidine Gluconate (Peridex) 15 ml BID MM 01/16/18 21:00 Cancel Dextrose/Sodium Chloride 1,000 ml @ 50 mls/hr Q20H IV 01/16/18 10:00 01/17/18 13:11 DC Lorazepam 100 mg/ Sodium Chloride 100 ml @ 2 mls/hr CONT PRN IV SEE PROTOCOL 01/16/18 09:45 01/16/18 20:53 Potassium Acetate 30 meq/Potassium Phosphate 3.4 mmol/Magnesium Sulfate 15 meq/ Calcium Gluconate 10 meq/ Multivitamins 10 ml/Chromium/ Copper/Manganese/ Seleni/Zn 1 ml/ Thiamine HCl 100 mg/Folic Acid 1 mg/Total Parenteral Nutrition/Amino Acids/Dextrose 1,512 ml @ 63 mls/hr TPN CONT IV 01/16/18 22:00 01/17/18 21:59 01/16/18 21:52 Hydralazine HCl (Apresoline Inj) 20 mg PRN TID PRN IVP SBP>160 2ND CHOICE 01/16/18 15:30 01/16/18 15:27 Nicardipine HCl 50 mg/Sodium Chloride 270 ml @ 27 mls/hr CONT PRN IV SEE I/O RECORD 01/16/18 16:30 01/17/18 10:41 Dextrose 500 ml @ 500 mls/hr 1X ONCE IV 01/17/18 07:30 01/17/18 10:53 DC Insulin Glargine (Lantus) 10 units QHS SQ 01/17/18 21:00 Cancel Insulin Glargine (Lantus) 10 units DAILY10 SQ 01/17/18 10:00 01/17/18 10:22 Dextrose 1,000 ml @ 75 mls/hr [id number] IV 01/17/18 11:00 Potassium Acetate 30 meq/Potassium Phosphate 3.4 mmol/Magnesium Sulfate 18 meq/ Calcium Gluconate 10 meq/ Multivitamins 10 ml/Chromium/ Copper/Manganese/ Seleni/Zn 1 ml/ Thiamine HCl 100 mg/Folic Acid 1 mg/Total Parenteral Nutrition/Amino Acids/Dextrose 1,728 ml @ 72 mls/hr TPN CONT IV 01/17/18 22:00 01/18/18 21:59 Imaging: Chest x-ray 01/17/18 IMPRESSION: 1. Stable tube positions. 2. Worsening right basilar atelectasis/infiltrate. 2. Improving left basilar infiltrate. PE: GEN: intubated HEENT: OG LUNGS: vent HEART: tachycardic ABD: quiet NEURO/PSYCH: sedated A/P: Agitation/encephalopathy, resp failure, DENISHA - remains intubated/sedated Pancreatitis - h/o alcohol and hypertriglyceridemia -- Continue same per GI. KAELA FULTON Jan 17, 2018 14:12
[2018-01-17] MEDS: ACETAMINOPHEN 650 MG/20.3 ML SOLUTION. PEG PRN (15:52)
[2018-01-17] MEDS: LORazepam 100 MG in IV NORMAL SALINE 100ML 50 ML IV PRN (17:03)
[2018-01-17] MEDS ORDERED: DEXTROSE 5% IV PRN (19:45)
[2018-01-17] MEDS ORDERED: VECURONIUM BROMIDE IV PRN (19:45)
[2018-01-17] MEDS: VECURONIUM BROMIDE IV PRN ×2 (19:57→20:42)
[2018-01-17] MEDS: TOTAL VOLUME IV PRN ×2 (19:57→20:42)
[2018-01-17] MEDS ORDERED: INSULIN GLARGINE 300 UNITS/3 ML INSULN.PEN. SQ SCH (21:00)
[2018-01-17] MEDS ORDERED: DEXTROSE 70% IV SCH ×10 (22:00)
[2018-01-17] MEDS ORDERED: TOTAL PARENTERAL NUTRITION IV SCH ×10 (22:00)
[2018-01-17] MEDS ORDERED: AMINO ACIDS IV SCH ×10 (22:00)
[2018-01-17] MEDS ORDERED: [UNRECOGNIZED DRUG - OTHER] IV SCH ×10 (22:00)
[2018-01-18] VITALS (28 sets, daily range): BP systolic 79–176; BP diastolic 42–90
[2018-01-18] MEDS: DEXMEDETOMIDINE 200 MCG in IV NORMAL SALINE 50ML 48 ML IV PRN ×16 (01:06→23:42)
[2018-01-18] MEDS: IV DEXTROSE 5% 1,000 ML IV SCH ×2 (01:06→14:56)
[2018-01-18] MEDS: LORazepam 100 MG in IV NORMAL SALINE 100ML 50 ML IV PRN ×2 (03:18→23:42)
[2018-01-18] MEDS: HEPARIN for SUB-Q USE 5,000 UNIT/ML VIAL. SQ SCH ×3 (05:42→21:44)
[2018-01-18 06:06] LABS: CALCIUM 9.8 mg/dL (8.5-10.1); CREATININE 3.8 mg/dL (0.7-1.3); GFR 17.5; MAGNESIUM 1.5 mg/dL (1.8-2.4); PHOSPHORUS 4.4 mg/dL (2.6-4.7); POTASSIUM 4.2 mmol/L (3.5-5.1)
[2018-01-18] MEDS ORDERED: INSULIN LISPRO 300 UNITS/3 ML INSULN.PEN. SQ ONE (06:30)
[2018-01-18] MEDS: INSULIN LISPRO 300 UNITS/3 ML INSULN.PEN. SQ SCH ×5 (06:42→18:00)
--- NOTE | 2018-01-18 07:06 | PDOC ---
PROGRESS NOTES Chief Complaint Chief Complaint 1. Acute respiratory failure. 2. etoh intoxication versus dependence, not protecting airway hence intubated at the emergency room 2. LLL pneumonia. 3. Sepsis - LLL pneumonia 4. Severe agitation, could be secondary to alcohol withdrawal versus sepsis versus others. 5. Hyperglycemia, with HYPERTRIGLYCERIDEMIA 6. Elevated BNP and troponin elevation 7. History of alcohol abuse. 8. Obesity BMI 39 - poss obstructive sleep apnea-hypopnea syndrome. History of Present Illness History of Present Illness Admitted with hallucinations and combative, was intubated soon after admission. Ketonuria on UA Intubated sedated, father states this is likely polysubstance abuse withdrawal Overnight: Fever 101.4F. Required vecuronium GTT for agitation vent dysynchrony overnight, Creatinine 3.8 this morning but making significant urine, sodium 151 and mag 1.4, Triglycerides are high and lipase. Glucose 391. With even small decrease in versed he becomes combative, but moves all extremities. No BM since 01/08, but has had nothing PO. Stable on TPN A/P: Acute respiratory failure - 22/550/50% peep 7, appears to be developing PNA in LL on CXR, on zyvox. Fever this morning again, blood cultures Hypernatremia - possibly 2/2 TF. Sodium 151, at least 6L Free water deficit, NPO for pancreatitis, will add D5W if ok with nephro Etoh intoxication versus dependence, not protecting airway hence intubated at the emergency room - no fevers for 2 days, could consider wean if he would comply with sedation reduction LLL pneumonia - changed to zyvox Sepsis - LLL pneumonia - cont fluids, will change to D5 1/2NSS. May need LP at this point Acute renal failure - Cr 1.4-->5.7 - likely from sepsis, hypotension, ATN? Nephrology following, may need HD in the near future, but making urine Severe agitation, could be secondary to alcohol withdrawal versus sepsis versus others. Did paralyze 01/13/18 overnight and 01/15/18 overnight, opens eyes with any weaning Hyperglycemia, with HYPERTRIGLYCERIDEMIA - insulin GTT. TPN with his his elevated lipase Elevated BNP and troponin elevation - likely from sepsis - cardiology seeing History of alcohol abuse - on precedex, versed, fentanyl for likely withdrawal Obesity BMI 39 - poss obstructive sleep apnea-hypopnea syndrome. Heparin SQ Already on PPI IV nutrition consult for tube feeds-->TPN We will need alcohol rehabilitation referrals once extubated Supportive care Further conditions pending course. Met with his father, he is acutely worsening He continues with fevers and combative behavior, difficult disposition, he is very ill Vitals Vitals Vital Signs Date Time Temp Pulse Resp B/P (MAP) Pulse Ox O2 Delivery O2 Flow Rate FiO2 01/18/18 06:00 111 26 174/90 (118) 98 Ventilator 01/18/18 04:00 99.2 99.2 Physical Exam Physical Exam GENERAL: sedated and intubated. HEENT: Pupils small. ETT and NGT in place. LUNGS: Diminished aeration in the bases. HEART: S1 S2 Regular rhythm. ABDOMEN: Obese. BS active, so grimace or guarding to palpation. GENITOURINARY: Indwelling Cook in place. EXTREMITIES: 1 plus edema or cyanosis. SKIN: He has tattoos. Warm, Multiple small scabs on both legs. NEUROLOGIC: Unresponsive/sedated. RIJ - clean. General: Other (sedated on a ventilator.) Heart: Regular rate Lungs: Other (decrease bs) Abdomen: Normal bowel sounds Extremities: No clubbing, No cyanosis, No edema, Normal pulses Skin: No rashes, No breakdown Labs LABS Laboratory Tests Test 01/17/18 10:18 01/17/18 17:21 01/17/18 23:49 01/18/18 05:00 Glucose (Fingerstick) 312 mg/dL (70-99) 345 mg/dL (70-99) 312 mg/dL (70-99) Sodium Level 151 mmol/L (136-145) Potassium Level 4.2 mmol/L (3.5-5.1) Chloride Level 113 mmol/L (98-107) Carbon Dioxide Level 25 mmol/L (21-32) Anion Gap 13 (6-14) Blood Urea Nitrogen 53 mg/dL (8-26) Creatinine 3.8 mg/dL (0.7-1.3) Estimated GFR (Cockcroft-Gault) 17.5 Glucose Level 446 mg/dL (70-99) Calcium Level 9.8 mg/dL (8.5-10.1) Phosphorus Level 4.4 mg/dL (2.6-4.7) Magnesium Level 1.5 mg/dL (1.8-2.4) Triglycerides Level 276 mg/dL (0-150) Test 01/18/18 05:40 01/18/18 05:49 Glucose (Fingerstick) 391 mg/dL (70-99) Ionized Calcium 1.18 mmol/L (1.13-1.32) Assessment and Plan Assessmemt and Plan Problems Medical Problems: (1) Diabetic keto-acidosis Status: Acute (2) Hyperglycemia due to type 2 diabetes mellitus Status: Acute (3) Metabolic acidemia Status: Acute (4) Metabolic encephalopathy Status: Acute Comment Review of Relevant I have reviewed the following items franklyn (where applicable) has been applied. Labs Laboratory Tests Test 01/16/18 12:08 01/16/18 17:32 01/17/18 00:35 01/17/18 05:39 Glucose (Fingerstick) 239 mg/dL (70-99) 268 mg/dL (70-99) 343 mg/dL (70-99) 332 mg/dL (70-99) Test 01/17/18 06:00 01/17/18 07:00 01/17/18 10:18 01/17/18 17:21 White Blood Count 5.8 x10^3/uL (4.0-11.0) Red Blood Count 2.89 x10^6/uL (4.30-5.70) Hemoglobin 9.7 g/dL (13.0-17.5) Hematocrit 28.7 % (39.0-53.0) Mean Corpuscular Volume 99 fL (79-100) Mean Corpuscular Hemoglobin 33 pg (25-35) Mean Corpuscular Hemoglobin Concent 34 g/dL (31-37) Red Cell Distribution Width 14.3 % (11.5-14.5) Platelet Count 245 x10^3/uL (140-400) Neutrophils (%) (Auto) 60 % (31-73) Lymphocytes (%) (Auto) 22 % (24-48) Monocytes (%) (Auto) 16 % (0-9) Eosinophils (%) (Auto) 1 % (0-3) Basophils (%) (Auto) 1 % (0-3) Neutrophils # (Auto) 3.5 x10^3uL (1.8-7.7) Lymphocytes # (Auto) 1.3 x10^3/uL (1.0-4.8) Monocytes # (Auto) 1.0 x10^3/uL (0.0-1.1) Eosinophils # (Auto) 0.1 x10^3/uL (0.0-0.7) Basophils # (Auto) 0.1 x10^3/uL (0.0-0.2) Sodium Level 151 mmol/L (136-145) Potassium Level 4.0 mmol/L (3.5-5.1) Chloride Level 114 mmol/L (98-107) Carbon Dioxide Level 23 mmol/L (21-32) Anion Gap 14 (6-14) Blood Urea Nitrogen 56 mg/dL (8-26) Creatinine 4.9 mg/dL (0.7-1.3) Estimated GFR (Cockcroft-Gault) 13.0 BUN/Creatinine Ratio 11 (6-20) Glucose Level 368 mg/dL (70-99) Calcium Level 9.1 mg/dL (8.5-10.1) Phosphorus Level 3.7 mg/dL (2.6-4.7) Magnesium Level 1.7 mg/dL (1.8-2.4) Total Bilirubin 0.4 mg/dL (0.2-1.0) Aspartate Amino Transf (AST/SGOT) 21 U/L (15-37) Alanine Aminotransferase (ALT/SGPT) 25 U/L (16-63) Alkaline Phosphatase 76 U/L (46-116) Total Protein 6.3 g/dL (6.4-8.2) Albumin 1.7 g/dL (3.4-5.0) Albumin/Globulin Ratio 0.4 (1.0-1.7) O2 Saturation 98 % (92-99) Arterial Blood pH 7.35 (7.35-7.45) Arterial Blood pCO2 at Patient Temp 41 mmHg (35-46) Arterial Blood pO2 at Patient Temp 106 mmHg (75-108) Arterial Blood HCO3 22 mmol/L (21-28) Arterial Blood Base Excess -3 mmol/L (-3-3) FiO2 40 Glucose (Fingerstick) 312 mg/dL (70-99) 345 mg/dL (70-99) Test 01/17/18 23:49 01/18/18 05:00 01/18/18 05:40 01/18/18 05:49 Glucose (Fingerstick) 312 mg/dL (70-99) 391 mg/dL (70-99) Sodium Level 151 mmol/L (136-145) Potassium Level 4.2 mmol/L (3.5-5.1) Chloride Level 113 mmol/L (98-107) Carbon Dioxide Level 25 mmol/L (21-32) Anion Gap 13 (6-14) Blood Urea Nitrogen 53 mg/dL (8-26) Creatinine 3.8 mg/dL (0.7-1.3) Estimated GFR (Cockcroft-Gault) 17.5 Glucose Level 446 mg/dL (70-99) Calcium Level 9.8 mg/dL (8.5-10.1) Phosphorus Level 4.4 mg/dL (2.6-4.7) Magnesium Level 1.5 mg/dL (1.8-2.4) Triglycerides Level 276 mg/dL (0-150) Ionized Calcium 1.18 mmol/L (1.13-1.32) Laboratory Tests Test 01/17/18 10:18 01/17/18 17:21 01/17/18 23:49 01/18/18 05:00 Glucose (Fingerstick) 312 mg/dL (70-99) 345 mg/dL (70-99) 312 mg/dL (70-99) Sodium Level 151 mmol/L (136-145) Potassium Level 4.2 mmol/L (3.5-5.1) Chloride Level 113 mmol/L (98-107) Carbon Dioxide Level 25 mmol/L (21-32) Anion Gap 13 (6-14) Blood Urea Nitrogen 53 mg/dL (8-26) Creatinine 3.8 mg/dL (0.7-1.3) Estimated GFR (Cockcroft-Gault) 17.5 Glucose Level 446 mg/dL (70-99) Calcium Level 9.8 mg/dL (8.5-10.1) Phosphorus Level 4.4 mg/dL (2.6-4.7) Magnesium Level 1.5 mg/dL (1.8-2.4) Triglycerides Level 276 mg/dL (0-150) Test 01/18/18 05:40 01/18/18 05:49 Glucose (Fingerstick) 391 mg/dL (70-99) Ionized Calcium 1.18 mmol/L (1.13-1.32) Microbiology 01/16/18 Blood Culture - Final, Complete 01/13/18 Throat Culture - Final, Complete 01/13/18 - Final, Complete Medications Current Medications Lorazepam (Ativan) 1 mg 1X ONCE IV Last administered on 01/11/18at 12:25; Start 01/11/18 at 12:30; Stop 01/11/18 at 12:31; Status DC Lorazepam (Ativan) 2 mg 1X ONCE IV Last administered on 01/11/18at 13:03; Start 01/11/18 at 12:45; Stop 01/11/18 at 12:46; Status DC Dextrose/Sodium Chloride 1,000 ml @ 0 mls/hr 1X ONCE IV ; Start 01/11/18 at 13:00; Stop 01/11/18 at 13:16; Status DC Sodium Chloride 1,000 ml @ 1,000 mls/hr 1X ONCE IV Last administered on 01/11at 13:41; Start 01/11/18 at 13:30; Stop 01/11/18 at 14:29; Status DC Sodium Chloride 1,000 ml @ 1,000 mls/hr 1X ONCE IV Last administered on 01/11at 13:42; Start 01/11/18 at 13:30; Stop 01/11/18 at 14:29; Status DC Lorazepam (Ativan) 1 mg 1X ONCE IV Last administered on 01/11/18at 15:08; Start 01/11/18 at 13:30; Stop 01/11/18 at 13:31; Status DC Lorazepam (Ativan) 1 mg 1X ONCE IV Last administered on 01/11/18at 13:43; Start 01/11/18 at 13:30; Stop 01/11/18 at 13:33; Status DC Aspirin (Children'S Aspirin) 324 mg 1X ONCE PO Last administered on at 14:02; Start 01/11/18 at 13:45; Stop 01/11/18 at 13:46; Status DC Haloperidol Lactate (Haldol Inj) 5 mg PRN Q6HRS PRN IVP SEVERE AGITATION Last administered on 01/16/18at 21:24; Start 01/11/18 at 16:15 Lorazepam (Ativan) 4 mg PRN Q4HRS PRN IV ANXIETY / AGITATION Last administered on 01/16/18at 09:32; Start 01/11/18 at 16:15 Multivitamins 10 ml/Thiamine HCl 100 mg/Folic Acid 1 mg/Sodium Chloride 1,011.2 ml @ 125 mls/ hr DAILY IV Last administered on 01/14/18at 08:19; Start at 17:00; Stop 01/14/18 at 21:59; Status DC Dexmedetomidine HCl 200 mcg/ Sodium Chloride 50 ml @ 0 mls/hr CONT PRN IV PER PROTOCOL Last administered on 01/11/18at 17:00; Start 01/11/18 at 16:45; Stop 01/11/18 at 18:38; Status DC Sodium Chloride 500 ml @ 500 mls/hr 1X PRN PRN IV SEE COMMENTS; Start at 16:45 Atropine Sulfate (ATROPINE 0.5mg SYRINGE) 0.5 mg PRN Q5MIN PRN IV SEE COMMENTS ; Start 01/11/18 at 16:45 Lorazepam (Ativan) 4 mg PRN Q1HR PRN PO For CIWA 8-14; Start 01/11/18 at 18:15 Lorazepam (Ativan) 8 mg PRN Q1HR PRN PO For CIWA 15 or greater; Start at 18:15 Lorazepam (Ativan) 2 mg PRN Q1HR PRN IV For CIWA 8-14; Start 01/11/18 at 18:15 Lorazepam (Ativan) 4 mg PRN Q1HR PRN IV For CIWA 15 or greater Last administered on 01/15/18at 23:04; Start 01/11/18 at 18:15 Diphenhydramine HCl (Benadryl) 25 mg PRN Q15MIN PRN IVP EPS symptoms 2'Haldol admin; Start 01/11/18 at 18:15 Olanzapine (ZyPREXA IM) 10 mg 1X ONCE IM Last administered on 01/11/18at 18:42 ; Start 01/11/18 at 18:45; Stop 01/11/18 at 18:46; Status DC Dexmedetomidine HCl 200 mcg/ Sodium Chloride 50 ml @ 7 mls/hr CONT PRN IV PER PROTOCOL; Start 01/11/18 at 18:38; Stop 01/11/18 at 21:19; Status DC Propofol 100 ml @ As Directed STK-MED ONCE IV ; Start 01/11/18 at 18:43; Stop 01/11/18 at 18:44; Status DC Succinylcholine Chloride (Anectine) 200 mg STK-MED ONCE .ROUTE ; Start at 18:44; Stop 01/11/18 at 18:45; Status DC Fentanyl Citrate 30 ml @ 2.5 mls/hr CONT PRN IV PER PROTOCOL Last administered on 01/18/18at 04:18; Start 01/11/18 at 19:00 Propofol 100 ml @ 4.2 mls/hr CONT PRN IV PER PROTOCOL; Start 01/11/18 at 18: 45; Status Cancel Fentanyl Citrate (Fentanyl 2ml Vial) 25 mcg PRN Q1HR PRN IV SEE COMMENTS.; Start 01/11/18 at 18:45 Fentanyl Citrate (Fentanyl 2ml Vial) 50 mcg PRN Q1HR PRN IV SEE COMMENTS. Last administered on 01/11/18at 20:21; Start 01/11/18 at 18:45 Morphine Sulfate (Morphine Sulfate) 2 mg PRN Q1HR PRN IV SEE COMMENTS.; Start 01/11/18 at 18:45 Morphine Sulfate (Morphine Sulfate) 4 mg PRN Q1HR PRN IV SEE COMMENTS.; Start 01/11/18 at 18:45 Hydromorphone HCl (Dilaudid) 0.2 mg PRN Q1HR PRN IV SEE COMMENTS.; Start 01/11 at 18:45 Hydromorphone HCl (Dilaudid) 0.4 mg PRN Q1HR PRN IV SEE COMMENTS.; Start 01/11 at 18:45 Morphine Sulfate (Morphine Sulfate) 2 mg PRN Q1HR PRN IV ; Start 01/11/18 at 18:45; Status UNV Morphine Sulfate (Morphine Sulfate) 4 mg PRN Q1HR PRN IV ; Start 01/11/18 at 18:45; Status UNV Midazolam HCl 100 ml @ 1 mls/hr CONT PRN IV PER PROTOCOL Last administered on 01/16/18at 04:52; Start 01/11/18 at 18:45; Stop 01/16/18 at 09:52; Status DC Epinephrine HCl (EPINEPHrine SYRINGE) 1 mg STK-MED ONCE .ROUTE ; Start at 18:56; Stop 01/11/18 at 18:57; Status DC Propofol 100 ml @ 2.103 mls/ hr CONT PRN IV SEE I/O RECORD Last administered on 01/11/18at 20:23; Start 01/11/18 at 19:00 Vecuronium [place] (Norcuron Bolus) 10 mg STK-MED ONCE IV ; Start 01/11/18 at 19:02; Stop 01/11/18 at 19:03; Status DC Vancomycin HCl (Vanco Per Pharmacy) 1 each PRN DAILY PRN MC SEE COMMENTS Last administered on 01/12/18at 11:47; Start 01/11/18 at 20:15; Stop 01/12/18 at 13 :14; Status DC Piperacillin Sod/ Tazobactam Sod (Zosyn Per Pharmacy) 1 each PRN DAILY PRN MC SEE COMMENTS; Start 01/11/18 at 20:15; Stop 01/13/18 at 08:00; Status DC Piperacillin Sod/ Tazobactam Sod 4.5 gm/Sodium Chloride 100 ml @ 200 mls/hr Q6HRS IV Last administered on 01/13/18at 06:48; Start 01/12/18 at 00:00; Stop 01/13/18 at 07:57; Status DC Vancomycin HCl 2 gm/Sodium Chloride 500 ml @ 250 mls/hr 1X ONCE IV Last administered on 01/11/18at 21:00; Start 01/11/18 at 21:00; Stop 01/11/18 at 22 :59; Status DC Insulin Human Lispro (HumaLOG) 0-7 UNITS Q6HRS SQ Last administered on at 06:42; Start 01/12/18 at 00:00 Dextrose (Dextrose 50%-Water Syringe) 12.5 gm PRN Q15MIN PRN IV SEE COMMENTS; Start 01/11/18 at 21:00 Sodium Chloride 1,000 ml @ 100 mls/hr Q10H IV Last administered on 01/16/18at 03:59; Start 01/11/18 at 21:00; Stop 01/16/18 at 09:47; Status DC Dexmedetomidine HCl 200 mcg/ Sodium Chloride 50 ml @ 0 mls/hr CONT PRN IV PER PROTOCOL Last administered on 01/18/18at 06:43; Start 01/11/18 at 21:00 Acetaminophen (Tylenol) 650 mg PRN Q6HRS PRN PEG MILD PAIN / TEMP Last administered on 01/17/18at 15:52; Start 01/11/18 at 21:30 Magnesium Sulfate 50 ml @ 25 mls/hr 1X ONCE IV Last administered on at 01:27; Start 01/12/18 at 01:00; Stop 01/12/18 at 02:59; Status DC Sodium Chloride 1,000 ml @ 1,000 mls/hr 1X ONCE IV Last administered on 01/12at 01:00; Start 01/12/18 at 04:30; Stop 01/12/18 at 05:29; Status DC Vancomycin HCl 1.5 gm/Sodium Chloride 500 ml @ 250 mls/hr Q12H IV Last administered on 01/12/18at 08:44; Start 01/12/18 at 09:00; Stop 01/12/18 at 13 :14; Status DC Vancomycin HCl (Vancomycin Trough Level) 1 each 1X ONCE MC ; Start 01/12/18 at 20:30; Stop 01/12/18 at 20:30; Status DC Sodium Chloride 500 ml @ 500 mls/hr 1X ONCE IV Last administered on at 07:26; Start 01/12/18 at 07:00; Stop 01/12/18 at 07:59; Status DC Famotidine (Pepcid Vial) 20 mg BID IVP Last administered on 01/13/18at 20:49; Start 01/12/18 at 09:00; Stop 01/14/18 at 09:40; Status DC Albuterol/ Ipratropium (Duoneb) 3 ml RTQID NEB Last administered on 01/17/18at 19:52; Start 01/12/18 at 08:00 Heparin Sodium (Porcine) (Heparin Sodium) 5,000 unit Q8HRS SQ Last administered on 01/18/18at 05:42; Start 01/12/18 at 14:00 Gemfibrozil (Lopid) 600 mg BIDBFRMEAL PO Last administered on 01/17/18at 15:52 ; Start 01/12/18 at 10:00 Linezolid/Dextrose 300 ml @ 300 mls/hr Q12HR IV Last administered on at 08:39; Start 01/12/18 at 21:00; Stop 01/15/18 at 12:06; Status DC Vecuronium [place] (Norcuron Bolus) 10 mg STK-MED ONCE IV ; Start 01/11/18 at 19:00; Stop 01/13/18 at 07:59; Status DC Succinylcholine Chloride (Anectine) 200 mg STK-MED ONCE .ROUTE ; Start at 19:00; Stop 01/13/18 at 07:59; Status DC Propofol (Diprivan) 1,000 mg STK-MED ONCE IV ; Start 01/11/18 at 19:00; Stop 01/13/18 at 07:59; Status DC Epinephrine HCl (EPINEPHrine SYRINGE) 1 mg STK-MED ONCE .ROUTE ; Start at 19:00; Stop 01/13/18 at 07:59; Status DC Piperacillin Sod/ Tazobactam Sod 2.25 gm/Sodium Chloride 50 ml @ 100 mls/hr Q8HRS IV Last administered on 01/16/18at 05:59; Start 01/13/18 at 14:00; Stop 01/16/18 at 07:31; Status DC Doxycycline Hyclate 100 mg/ Dextrose 100 ml @ 50 mls/hr Q12HR IV Last administered on 01/17/18at 21:24; Start 01/13/18 at 09:00 Sodium Bicarbonate (Sodium Bicarb Adult 8.4% Syr) 100 meq 1X ONCE IV Last administered on 01/13/18at 09:12; Start 01/13/18 at 09:15; Stop 01/13/18 at 09 :16; Status DC Sodium Chloride 1,000 ml @ 1,000 mls/hr Q1H IV ; Start 01/13/18 at 12:30; Status Cancel Sodium Chloride 1,000 ml @ 1,000 mls/hr 1X ONCE IV Last administered on 01/13at 12:15; Start 01/13/18 at 12:15; Stop 01/13/18 at 13:14; Status DC Vecuronium [place] (Norcuron Bolus) 6 mg PRN Q6HRS PRN IV VENT ASYNCHRONY Last administered on 01/15/18at 10:23; Start 01/13/18 at 12:30; Stop 01/15/18 at 14 :51; Status DC Info (Tpn Per Pharmacy) 1 each PRN DAILY PRN MC SEE COMMENTS Last administered on 01/17/18at 12:57; Start 01/14/18 at 09:45 Famotidine (Pepcid Vial) 20 mg DAILY IVP Last administered on 01/17/18at 09:05 ; Start 01/15/18 at 09:00 Sodium Bicarbonate (Sodium Bicarb Adult 8.4% Syr) 50 meq STK-MED ONCE .ROUTE ; Start 01/14/18 at 11:12; Stop 01/14/18 at 11:13; Status DC Labetalol HCl (Normodyne Iv Push) 10 mg PRN Q4HRS PRN IVP HYPERTENSION, SEE COMMENTS Last administered on 01/17/18at 10:39; Start 01/14/18 at 11:30 Sodium Bicarbonate (Sodium Bicarb Adult 8.4% Syr) 100 meq 1X ONCE IV Last administered on 01/14/18at 11:34; Start 01/14/18 at 11:30; Stop 01/14/18 at 11 :31; Status DC Sodium Chloride 45 meq/Sodium Acetate 45 meq/ Potassium Chloride 30 meq/ Potassium Phosphate 6.8 mmol/Magnesium Sulfate 10 meq/ Calcium Gluconate 10 meq / Multivitamins 10 ml/Chromium/ Copper/Manganese/ Seleni/Zn 1 ml/ Thiamine HCl 100 mg/Folic Acid 1 mg/Total Julieta... 1,512 ml @ 63 mls/hr TPN CONT IV Last administered on 01/14/18at 21:37; Start 01/14/18 at 22:00; Stop 01/15/18 at 21:59; Status DC Labetalol HCl (Normodyne Iv Push) 20 mg PRN Q2HR PRN IVP HYPERTENSION, SEE COMMENTS Last administered on 01/16/18at 13:57; Start 01/14/18 at 15:30 Multivitamins 10 ml/Thiamine HCl 100 mg/Folic Acid 1 mg/Sodium Chloride 1,011.2 ml @ 1,000.088 mls/hr 1X ONCE IV ; Start 01/15/18 at 08:15; Stop 01/15/18 at 09:15; Status UNV Sodium Chloride 1,000 ml @ 1,000 mls/hr Q1H PRN IV hypotension; Start at 09:06; Stop 01/15/18 at 09:32; Status DC Albumin Human 200 ml @ 200 mls/hr 1X ONCE IV ; Start 01/15/18 at 09:15; Stop 01/15/18 at 09:32; Status DC Acetaminophen (Tylenol) 500 mg 1X PRN PRN PO MILD PAIN / TEMP; Start 01/15/18 at 09:15; Stop 01/15/18 at 09:32; Status DC Diphenhydramine HCl (Benadryl) 25 mg 1X PRN PRN IV ITCHING; Start 01/15/18 at 09:15; Stop 01/15/18 at 09:32; Status DC Pharmacy Consult (C.diff Med Screen By Rx) 1 each PRN 1X PRN MC SEE COMMENTS; Start 01/15/18 at 09:30; Status Cancel Sodium Chloride 1,000 ml @ 400 mls/hr Q2H30M PRN IV PATENCY; Start 01/15/18 at 09:06; Stop 01/15/18 at 09:32; Status DC Info (PHARMACY MONITORING -- do not chart) 1 each PRN DAILY PRN MC SEE COMMENTS ; Start 01/15/18 at 09:15 Sodium Acetate 75 meq/Potassium Chloride 30 meq/ Potassium Phosphate 6.8 mmol/ Magnesium Sulfate 13 meq/ Calcium Gluconate 10 meq/ Multivitamins 10 ml/Chromium / Copper/Manganese/ Seleni/Zn 1 ml/ Thiamine HCl 100 mg/Folic Acid 1 mg/Total Parenteral Nutrition/Amino Acids/Dextro... 1,492 ml @ 62.167 mls/ hr TPN CONT IV ; Start 01/15/18 at 22:00; Stop 01/15/18 at 22:00; Status DC Sodium Acetate 75 meq/Potassium Chloride 30 meq/ Potassium Phosphate 6.8 mmol/ Magnesium Sulfate 13 meq/ Calcium Gluconate 10 meq/ Multivitamins 10 ml/Chromium / Copper/Manganese/ Seleni/Zn 1 ml/ Thiamine HCl 100 mg/Folic Acid 1 mg/Total Parenteral Nutrition/Amino Acids/Dextro... 1,512 ml @ 63 mls/hr TPN CONT IV Last administered on 01/15/18at 22:07; Start 01/15/18 at 22:00; Stop 01/16/18 at 21:59; Status DC Vecuronium [place] (Norcuron Bolus) 6 mg PRN Q4HRS PRN IV VENT ASYNCHRONY Last administered on 01/17/18at 12:41; Start 01/15/18 at 15:00 Meropenem 500 mg/ Sodium Chloride 50 ml @ 100 mls/hr Q12HR IV Last administered on 01/17/18at 21:24; Start 01/16/18 at 08:00 Metronidazole 100 ml @ 100 mls/hr Q8HRS IV Last administered on 01/18/18at 05: 41; Start 01/16/18 at 08:00 Chlorhexidine Gluconate (Peridex) 15 ml BID MM ; Start 01/16/18 at 21:00; Status Cancel Dextrose/Sodium Chloride 1,000 ml @ 50 mls/hr Q20H IV ; Start 01/16/18 at 10: 00; Stop 01/17/18 at 13:11; Status DC Lorazepam 100 mg/ Sodium Chloride 100 ml @ 2 mls/hr CONT PRN IV SEE PROTOCOL Last administered on 01/18/18at 03:18; Start 01/16/18 at 09:45 Potassium Acetate 30 meq/Potassium Phosphate 3.4 mmol/Magnesium Sulfate 15 meq/ Calcium Gluconate 10 meq/ Multivitamins 10 ml/Chromium/ Copper/Manganese/ Seleni /Zn 1 ml/ Thiamine HCl 100 mg/Folic Acid 1 mg/Total Parenteral Nutrition/Amino Acids/Dextrose 1,512 ml @ 63 mls/hr TPN CONT IV Last administered on at 21:52; Start 01/16/18 at 22:00; Stop 01/17/18 at 21:59; Status DC Hydralazine HCl (Apresoline Inj) 20 mg PRN TID PRN IVP SBP>160 2ND CHOICE Last administered on 01/16/18at 15:27; Start 01/16/18 at 15:30 Nicardipine HCl 50 mg/Sodium Chloride 270 ml @ 27 mls/hr CONT PRN IV SEE I/O RECORD Last administered on 01/18/18at 00:12; Start 01/16/18 at 16:30 Dextrose 500 ml @ 500 mls/hr 1X ONCE IV ; Start 01/17/18 at 07:30; Stop at 10:53; Status DC Insulin Glargine (Lantus) 10 units QHS SQ ; Start 01/17/18 at 21:00; Status Cancel Insulin Glargine (Lantus) 10 units DAILY10 SQ Last administered on 01/17/18at 10:22; Start 01/17/18 at 10:00 Dextrose 1,000 ml @ 75 mls/hr [id number] IV Last administered on 01/18/18at 01:06 ; Start 01/17/18 at 11:00 Potassium Acetate 30 meq/Potassium Phosphate 3.4 mmol/Magnesium Sulfate 18 meq/ Calcium Gluconate 10 meq/ Multivitamins 10 ml/Chromium/ Copper/Manganese/ Seleni /Zn 1 ml/ Thiamine HCl 100 mg/Folic Acid 1 mg/Total Parenteral Nutrition/Amino Acids/Dextrose 1,728 ml @ 72 mls/hr TPN CONT IV Last administered on at 21:25; Start 01/17/18 at 22:00; Stop 01/18/18 at 21:59 Vecuronium [place] 100 mg/ Dextrose 100 ml @ 7.89 mls/hr CONT PRN IV SEE I/O RECORD; Start 01/17/18 at 19:45; Status Cancel Vecuronium [place] 100 mg/ Miscellaneous 100 ml @ 7.89 mls/hr CONT PRN IV SEE I/O RECORD Last administered on 01/17/18at 20:42; Start 01/17/18 at 19:45 Insulin Human Lispro (HumaLOG) 10 units 1X ONCE SQ ; Start 01/18/18 at 06:30; Stop 01/18/18 at 06:31; Status DC Active Scripts Active Reported [[facility] [place] botanicals] Maxitrol Eye Drops ([place]/Polymyx B Sulf/Dexameth) 5 Ml Drops.susp 1 Drop OD QID Multivitamins (Multivitamin) 1 Each Tablet 1 Tab PO DAILY Magnesium (Magnesium Oxide) 400 Mg Capsule 1 Cap PO DAILY Calcium (Calcium Carbonate) 500 Mg Tab.chew 500 Mg PO Lansoprazole 30 Mg Capsule.dr 1 Cap PO DAILY Losartan Potassium 25 Mg Tablet 25 Mg PO DAILY Tizanidine Hcl 4 Mg Tablet 1 Tab PO TID Tramadol Hcl 50 Mg Tablet 50 Mg PO DAILY PRN Bystolic (Nebivolol Hcl) 20 Mg Tablet 20 Mg PO DAILY Cymbalta (Duloxetine Hcl) 20 Mg Capsule.dr 1 Cap PO DAILY Valacyclovir (Valacyclovir Hcl) 1,000 Mg Tablet 1 Tab PO DAILY Ibuprofen 400 Mg Tablet 400 Mg PO PRN Q6HRS PRN Bystolic (Nebivolol) 10 Mg Tablet 20 Mg PO DAILY Amlodipine Besylate 10 Mg Tablet 10 Mg PO DAILY Vitals/I & O Vital Sign - Last 24 Hours 01/17/18 01/17/18 01/17/18 01/17/18 07:30 08:00 08:00 08:19 Pulse 84 84 B/P (MAP) 128/77 (94) 136/77 (96) Pulse Ox 100 100 100 O2 Delivery Ventilator Mechanical Ventilator Ventilator Ventilator 01/17/18 01/17/18 01/17/18 01/17/18 08:30 09:00 09:00 09:02 Pulse 86 82 82 B/P (MAP) 140/81 (100) 128/74 (92) 173/86 (115) Pulse Ox 100 100 100 100 O2 Delivery Ventilator Ventilator Ventilator 01/17/18 01/17/18 01/17/18 01/17/18 09:30 09:30 10:00 10:39 Pulse 106 94 114 119 B/P (MAP) 235/121 (159) 220/114 (149) 176/89 (118) Pulse Ox 100 100 100 O2 Delivery Ventilator Ventilator Ventilator 01/17/18 01/17/18 01/17/18 01/17/18 11:00 12:00 12:00 12:47 Temp 98.0 98.0 Pulse 106 114 B/P (MAP) 220/114 (149) 235/121 (159) Pulse Ox 95 100 O2 Delivery Ventilator Mechanical Ventilator Ventilator 01/17/18 01/17/18 01/17/18 01/17/18 13:00 14:00 15:00 15:25 Pulse 92 114 120 B/P (MAP) 110/59 (76) 184/96 (125) 180/97 (124) Pulse Ox 98 100 O2 Delivery Ventilator Ventilator Ventilator Ventilator 01/17/18 01/17/18 01/17/18 01/17/18 16:00 16:00 17:00 17:14 Temp 101.0 101.0 Pulse 98 B/P (MAP) 105/61 (76) 165/78 (107) Pulse Ox 100 100 100 O2 Delivery Mechanical Ventilator Ventilator Ventilator 01/17/18 01/17/18 01/17/18 01/17/18 17:48 18:00 18:01 19:00 Pulse 124 120 Resp 26 B/P (MAP) 154/64 (94) 159/87 (111) Pulse Ox 100 100 100 99 O2 Delivery Ventilator Ventilator Ventilator 01/17/18 01/17/18 01/17/18 01/17/18 19:52 20:00 20:00 21:00 Temp 101.4 99.6 101.4 99.6 Pulse 112 112 Resp 26 26 B/P (MAP) 152/91 (111) 173/90 (117) Pulse Ox 100 100 99 O2 Delivery Ventilator Ventilator Mechanical Ventilator Ventilator 01/17/18 01/17/18 01/17/18 01/17/18 21:15 22:00 22:08 22:38 Pulse 107 Resp 26 B/P (MAP) 168/84 (112) Pulse Ox 100 99 99 O2 Delivery Ventilator Ventilator Ventilator 01/17/18 01/17/18 01/17/18 01/18/18 23:00 23:45 23:59 00:00 Temp 99.2 99.2 Pulse 98 104 Resp 26 26 B/P (MAP) 118/61 (80) 165/85 (111) Pulse Ox 99 100 99 O2 Delivery Ventilator Ventilator Mechanical Ventilator Ventilator 01/18/18 01/18/18 01/18/18 01/18/18 01:00 01:45 02:00 03:00 Pulse 106 110 98 Resp 26 26 26 B/P (MAP) 165/87 (113) 128/71 (90) 114/70 (85) Pulse Ox 99 100 99 99 O2 Delivery Ventilator Ventilator Ventilator Ventilator 01/18/18 01/18/18 01/18/18 01/18/18 03:20 04:00 04:00 04:18 Temp 99.2 99.2 Pulse 110 Resp 26 B/P (MAP) 167/88 (114) Pulse Ox 100 97 100 O2 Delivery Ventilator Ventilator Mechanical Ventilator 01/18/18 01/18/18 01/18/18 01/18/18 04:48 05:00 05:45 06:00 Pulse 108 111 Resp 26 26 B/P (MAP) 151/81 (104) 174/90 (118) Pulse Ox 98 100 98 O2 Delivery Ventilator Ventilator Ventilator Ventilator Intake and Output 01/17/18 01/17/18 01/18/18 15:00 23:00 07:00 Intake Total 0 ml 2495 ml 2878 ml Output Total 2775 ml 2075 ml 5000 ml Balance -2775 ml 420 ml -2122 ml JOSE APPIAH MD Jan 18, 2018:06
[2018-01-18] MEDS: IPRATRPIUM/ALBUTEROL 0.5/2.5MG 3 ML NEBU. NEB SCH ×4 (07:49→19:44)
[2018-01-18] MEDS: FAMOTIDINE 20 MG/2 ML VIAL IVP SCH (08:00)
[2018-01-18] MEDS: GEMFIBROZIL 600 MG TABLET. PO SCH ×2 (08:00→17:46)
[2018-01-18] MEDS: DOXYCYCLINE HYCLATE 100 MG in IV DEXTROSE 5% 100ML 100 ML IV SCH ×2 (08:01→21:38)
[2018-01-18 08:07] LABS: BASE EXCESS ABG -3 mmol/L (-3-3); HCO3 ABG 22 mmol/L (21-28); PCO2 ABG 41 mmHg (35-46); PO2 ABG 70 mmHg (75-108); SAT O2 ABG 94 % (92-99)
[2018-01-18 08:19] LABS: FIO2 ABG 40
--- NOTE | 2018-01-18 08:26 | RAD ---
PORTABLE CHEST 1V INDICATION: Respiratory distress COMPARISON: Chest radiograph dated 01/17/2018 FINDINGS: Unchanged endotracheal tube, enteric tube, and right IJ central venous catheter. Low lung volume. Unchanged bibasilar heterogenous airspace opacities. Unchanged pulmonary vascular indistinctness. Possible small left pleural effusion. No pneumothorax. The cardiomediastinal silhouette and great vessels are unchanged. IMPRESSION: 1. Unchanged bibasilar heterogenous airspace opacities. 2. Possible small left pleural effusion. 3. Unchanged life support devices as above. Electronically signed by: Anton Abdalla MD (01/18/2018 8:22 AM) [facility]
--- NOTE | 2018-01-18 08:30 | PDOC ---
Infectious Disease Note Subjective Subjective Sedated and paralyzed Remains intubated/vent. FiO2 40% Fever Tmax 101.4 TPN No vomiting or diarrhea reported ROS ROS Unobtainable as patient is intubated and sedated Vital Sign Vital Signs Vital Signs Date Time Temp Pulse Resp B/P (MAP) Pulse Ox O2 Delivery O2 Flow Rate FiO2 01/18/18 07:20 98 Ventilator 01/18/18 06:00 111 26 174/90 (118) 01/18/18 04:00 99.2 99.2 Physical Exam PHYSICAL EXAM GENERAL: sedated and intubated. HEENT: Pupils small. ETT and NGT in place. LUNGS: Diminished aeration in the bases. HEART: S1 S2 Regular rhythm. ABDOMEN: Obese. BS active, so grimace or guarding to palpation. GENITOURINARY: Indwelling Cook in place. EXTREMITIES: 1 plus edema or cyanosis. SKIN: He has tattoos. warm without rash NEUROLOGIC: Unresponsive/sedated. RIJ - clean. Labs Lab Laboratory Tests Test 01/17/18 10:18 01/17/18 17:21 01/17/18 23:49 01/18/18 05:00 Glucose (Fingerstick) 312 mg/dL (70-99) 345 mg/dL (70-99) 312 mg/dL (70-99) Sodium Level 151 mmol/L (136-145) Potassium Level 4.2 mmol/L (3.5-5.1) Chloride Level 113 mmol/L (98-107) Carbon Dioxide Level 25 mmol/L (21-32) Anion Gap 13 (6-14) Blood Urea Nitrogen 53 mg/dL (8-26) Creatinine 3.8 mg/dL (0.7-1.3) Estimated GFR (Cockcroft-Gault) 17.5 Glucose Level 446 mg/dL (70-99) Calcium Level 9.8 mg/dL (8.5-10.1) Phosphorus Level 4.4 mg/dL (2.6-4.7) Magnesium Level 1.5 mg/dL (1.8-2.4) Triglycerides Level 276 mg/dL (0-150) Test 01/18/18 05:40 01/18/18 05:49 01/18/18 08:00 Glucose (Fingerstick) 391 mg/dL (70-99) Ionized Calcium 1.18 mmol/L (1.13-1.32) O2 Saturation 94 % (92-99) Arterial Blood pH 7.35 (7.35-7.45) Arterial Blood pCO2 at Patient Temp 41 mmHg (35-46) Arterial Blood pO2 at Patient Temp 70 mmHg (75-108) Arterial Blood HCO3 22 mmol/L (21-28) Arterial Blood Base Excess -3 mmol/L (-3-3) FiO2 40 Micro 01/16. BLOOD CULTURE Final GRAM POSITIVE COCCI IN CLUSTERS, SUGGESTIVE OF STAPH, IN 1 OF 3 BOTTLES, TWO SETS DRAWN ON 01/16/18. Objective Assessment GPC bacteremia (1 of 3 bottles) from 01/16 Pancreatitis Fever likely sec to above/+- aspiration/? infection DENISHA Aspiration pneumonia. - Group A strep/Strep pneumo/legionella neg. Gram stain from sputum GPC in pairs from 01/12, no growth Acute encephalopathy with hallucinations and behavioral change Lactic acidosis, improved. Heavy alcohol use. Hyperglycemia. Worsening back pain with urinary incontinence prior to admission. History of methicillin-resistant Staphylococcus aureus - in back Morbid obesity Plan Plan of Care Meropenem (started 01/16) and doxy will add daptomycin renal dosing repeat bc -Previously on Zosyn Check C-diff with colitis although likely reactive - Flagyl May need repeat CT abd Monitor labs/temp Await GPC ID D/w nursing Critically ill Patient seen, examined, I agree with above. Assessment and plan was formulated with LAB SCIENTIST. IMTIAZ MUELLER APRN Jan 18, 2018 08:30 JENNIFER KUMARI MD Jan 18, 2018 14:43
[2018-01-18] MEDS: MEROPENEM 500 MG in IV NORMAL SALINE 50ML 50 ML IV SCH ×2 (10:50→21:37)
[2018-01-18] MEDS ORDERED: MAGNESIUM SULFATE 2GM 50 ML IV PRN (11:00)
--- NOTE | 2018-01-18 11:01 | PDOC ---
SUBJECTIVE ROS DENISHA ? ATN Patient remains sedated and intubated. Unable to get review of systems. He is on the vent and paralyzed OBJECTIVE Vital Signs Vital Signs Date Time Temp Pulse Resp B/P (MAP) Pulse Ox O2 Delivery O2 Flow Rate FiO2 01/18/18 10:08 20 01/18/18 10:00 76 98/56 (70) 98 Ventilator 01/18/18 07:00 98.7 98.7 I & 0 Intake and Output 01/18/18 07:00 Intake Total 5373 ml Output Total 93668 ml Balance -4777 ml Intake Oral 0 ml IV Total 5373 ml Output Urine Total 56454 ml PHYSICAL EXAM Physical Exam GEN: Remains sedated intubated and paralyzed on the vent. EYES: Sclera is anicteric on my exam, Conjunctiva Normal EN: No EN Drainage, Mucous Membranes moist, orally intubated NECK: no JVD, no JVP, Supple, no Thyromegaly CVS: S1S2, no Murmur, No Gallop, No Rub,+2 Edema RESP: rare basal Rales, no Rhonchi,no Acc. Muscle Use GI: BS hypoactive if any, NO Bruit, Non Tender, Non Distended : no CVA tenderness, no Suprapubic Tenderness DIAGNOSIS/ASSESSMENT Assessment & Plan DENISHA - ATN with Oliguria. Urine output is brisk now to the extent of polyuria, Currently No Emergent Indication for COSMETOLOGIST Polyuria: Suspect early as a result of recovering ATN. Other etiologies cannot be ruled out. It is unclear to me if some of this is TPN driven. May need to add water to TPN also Pancreatitis- h/o alcohol and hypertriglyceridemia, remains on lipid free TPN for the time being Hypernatremia- he has been on sodium free TPN currently. He however is polyuric. Hence will use DDAVP Hypomagnesemia: May need to add to TPN. We'll replace IV when necessary History of Heavy alcohol use, now with possible alcoholic pancreatitis associated with elevated triglycerides. Discussed with RN COMMENT/RELEVANT DATA Meds Current Medications Medications (Trade) Dose Ordered Sig/Yamile Start Time Stop Time Status Last Admin Dose Admin Acetaminophen (Tylenol) 500 mg 1X PRN PRN 01/15/18 09:15 01/15/18 09:32 DC Albumin Human 200 ml @ 200 mls/hr 1X ONCE 01/15/18 09:15 10/17/18 09:32 DC Albuterol/ Ipratropium (Duoneb) 3 ml RTQID 01/12/18 08:00 01/18/18 07:49 3 ML Aspirin (Children'S Aspirin) 324 mg 1X ONCE 01/11/18 13:45 01/11/18 13:46 DC 01/11/18 14:02 324 MG Atropine Sulfate (ATROPINE 0.5mg SYRINGE) 0.5 mg PRN Q5MIN PRN 01/11/18 16:45 Chlorhexidine Gluconate (Peridex) 15 ml BID 01/16/18 21:00 Cancel Dexmedetomidine HCl 200 mcg/ Sodium Chloride 50 ml @ 0 mls/hr CONT PRN 01/11/18 21:00 01/18/18 10:09 35.1 MLS/HR Dextrose 1,000 ml @ 75 mls/hr [id number] 01/17/18 11:00 01/18/18 01:06 75 MLS/HR Dextrose (Dextrose 50%-Water Syringe) 12.5 gm PRN Q15MIN PRN 01/11/18 21:00 Dextrose/Sodium Chloride 1,000 ml @ 50 mls/hr Q20H 01/16/18 10:00 01/17/18 13:11 DC Diphenhydramine HCl (Benadryl) 25 mg 1X PRN PRN 01/15/18 09:15 01/15/18 09:32 DC Doxycycline Hyclate 100 mg/ Dextrose 100 ml @ 50 mls/hr Q12HR 01/13/18 09:00 01/18/18 08:01 50 MLS/HR Epinephrine HCl (EPINEPHrine SYRINGE) 1 mg STK-MED ONCE 01/11/18 19:00 01/13/18 07:59 DC Famotidine (Pepcid Vial) 20 mg DAILY 01/15/18 09:00 01/18/18 08:00 20 MG Fentanyl Citrate (Fentanyl 2ml Vial) 50 mcg PRN Q1HR PRN 01/11/18 18:45 01/11/18 20:21 50 MCG Gemfibrozil (Lopid) 600 mg [id number] 01/12/18 10:00 01/18/18 08:00 600 MG Haloperidol Lactate (Haldol Inj) 5 mg PRN Q6HRS PRN 01/11/18 16:15 01/16/18 21:24 5 MG Heparin Sodium (Porcine) (Heparin Sodium) 5,000 unit Q8HRS 01/12/18 14:00 01/18/18 05:42 5,000 UNIT Hydralazine HCl (Apresoline Inj) 20 mg PRN TID PRN 01/16/18 15:30 01/16/18 15:27 20 MG Hydromorphone HCl (Dilaudid) 0.4 mg PRN Q1HR PRN 01/11/18 18:45 Info (PHARMACY MONITORING -- do not chart) 1 each PRN DAILY PRN 01/15/18 09:15 Info (Tpn Per Pharmacy) 1 each PRN DAILY PRN 01/14/18 09:45 01/17/18 12:57 1 EACH Insulin Glargine (Lantus) 10 units DAILY10 01/17/18 10:00 01/17/18 10:22 10 UNITS Insulin Human Lispro (HumaLOG) 8 units Q4HRS 01/18/18 08:30 01/18/18 08:31 8 UNITS Labetalol HCl (Normodyne Iv Push) 20 mg PRN Q2HR PRN 01/14/18 15:30 01/16/18 13:57 20 MG Linezolid/Dextrose 300 ml @ 300 mls/hr Q12HR 01/12/18 21:00 01/15/18 12:06 DC 01/15/18 08:39 300 MLS/HR Lorazepam (Ativan) 4 mg PRN Q1HR PRN 01/11/18 18:15 01/15/18 23:04 4 MG Lorazepam 100 mg/ Sodium Chloride 100 ml @ 2 mls/hr CONT PRN 01/16/18 09:45 01/18/18 03:18 10 MLS/HR Magnesium Sulfate 50 ml @ 25 mls/hr 1X ONCE 01/12/18 01:00 01/12/18 02:59 DC 01/12/18 01:27 25 MLS/HR Meropenem 500 mg/ Sodium Chloride 50 ml @ 100 mls/hr Q12HR 01/16/18 08:00 01/18/18 10:50 100 MLS/HR Metronidazole 100 ml @ 100 mls/hr Q8HRS 01/16/18 08:00 01/18/18 05:41 100 MLS/HR Midazolam HCl 100 ml @ 1 mls/hr CONT PRN 01/11/18 18:45 01/16/18 09:52 DC 01/16/18 04:52 15 MLS/HR Morphine Sulfate (Morphine Sulfate) 4 mg PRN Q1HR PRN 01/11/18 18:45 UNV Multivitamins 10 ml/Thiamine HCl 100 mg/Folic Acid 1 mg/Sodium Chloride 1,011.2 ml @ 1,000.088 mls/hr 1X ONCE 01/15/18 08:15 01/15/18 09:15 UNV Nicardipine HCl 50 mg/Sodium Chloride 270 ml @ 27 mls/hr CONT PRN 01/16/18 16:30 01/18/18 09:26 50 MLS/HR Olanzapine (ZyPREXA IM) 10 mg 1X ONCE 01/11/18 18:45 01/11/18 18:46 DC 01/11/18 18:42 10 MG Pharmacy Consult (C.diff Med Screen By Rx) 1 each PRN 1X PRN 01/15/18 09:30 Cancel Piperacillin Sod/ Tazobactam Sod (Zosyn Per Pharmacy) 1 each PRN DAILY PRN 01/11/18 20:15 01/13/18 08:00 DC Piperacillin Sod/ Tazobactam Sod 2.25 gm/Sodium Chloride 50 ml @ 100 mls/hr Q8HRS 01/13/18 14:00 01/16/18 07:31 DC 01/16/18 05:59 100 MLS/HR Piperacillin Sod/ Tazobactam Sod 4.5 gm/Sodium Chloride 100 ml @ 200 mls/hr Q6HRS 01/12/18 00:00 01/13/18 07:57 DC 01/13/18 06:48 200 MLS/HR Potassium Acetate 30 meq/Potassium Phosphate 3.4 mmol/Magnesium Sulfate 15 meq/ Calcium Gluconate 10 meq/ Multivitamins 10 ml/Chromium/ Copper/Manganese/ Seleni/Zn 1 ml/ Thiamine HCl 100 mg/Folic Acid 1 mg/Total Parenteral Nutrition/Amino Acids/Dextrose 1,512 ml @ 63 mls/hr TPN CONT 01/16/18 22:00 01/17/18 21:59 DC 01/16/18 21:52 63 MLS/HR Potassium Acetate 30 meq/Potassium Phosphate 3.4 mmol/Magnesium Sulfate 18 meq/ Calcium Gluconate 10 meq/ Multivitamins 10 ml/Chromium/ Copper/Manganese/ Seleni/Zn 1 ml/ Thiamine HCl 100 mg/Folic Acid 1 mg/Total Parenteral Nutrition/Amino Acids/Dextrose 1,728 ml @ 72 mls/hr TPN CONT 01/17/18 22:00 01/18/18 21:59 01/17/18 21:25 72 MLS/HR Propofol (Diprivan) 1,000 mg STK-MED ONCE 01/11/18 19:00 01/13/18 07:59 DC Sodium Acetate 75 meq/Potassium Chloride 30 meq/ Potassium Phosphate 6.8 mmol/Magnesium Sulfate 13 meq/ Calcium Gluconate 10 meq/ Multivitamins 10 ml/Chromium/ Copper/Manganese/ Seleni/Zn 1 ml/ Thiamine HCl 100 mg/Folic Acid 1 mg/Total Parenteral Nutrition/Amino Acids/Dextro... 1,512 ml @ 63 mls/hr TPN CONT 01/15/18 22:00 01/16/18 21:59 DC 01/15/18 22:07 63 MLS/HR Sodium Bicarbonate (Sodium Bicarb Adult 8.4% Syr) 100 meq 1X ONCE 01/14/18 11:30 01/14/18 11:31 DC 01/14/18 11:34 100 MEQ Sodium Chloride 1,000 ml @ 400 mls/hr Q2H30M PRN 01/15/18 09:06 01/15/18 09:32 DC Sodium Chloride 45 meq/Sodium Acetate 45 meq/ Potassium Chloride 30 meq/ Potassium Phosphate 6.8 mmol/Magnesium Sulfate 10 meq/ Calcium Gluconate 10 meq/ Multivitamins 10 ml/Chromium/ Copper/Manganese/ Seleni/Zn 1 ml/ Thiamine HCl 100 mg/Folic Acid 1 mg/Total Julieta... 1,512 ml @ 63 mls/hr TPN CONT 01/14/18 22:00 01/15/18 21:59 DC 01/14/18 21:37 63 MLS/HR Succinylcholine Chloride (Anectine) 200 mg STK-MED ONCE 01/11/18 19:00 01/13/18 07:59 DC Vancomycin HCl (Vanco Per Pharmacy) 1 each PRN DAILY PRN 01/11/18 20:15 01/12/18 13:14 DC 01/12/18 11:47 1 EACH Vancomycin HCl (Vancomycin Trough Level) 1 each 1X ONCE 01/12/18 20:30 01/12/18 20:30 DC Vancomycin HCl 1.5 gm/Sodium Chloride 500 ml @ 250 mls/hr Q12H 01/12/18 09:00 01/12/18 13:14 DC 01/12/18 08:44 250 MLS/HR Vancomycin HCl 2 gm/Sodium Chloride 500 ml @ 250 mls/hr 1X ONCE 01/11/18 21:00 01/11/18 22:59 DC 01/11/18 21:00 250 MLS/HR Vecuronium [place] 100 mg/ Dextrose 100 ml @ 7.89 mls/hr CONT PRN 01/17/18 19:45 Cancel Vecuronium [place] 100 mg/ Miscellaneous 100 ml @ 7.89 mls/hr CONT PRN 01/17/18 19:45 01/17/18 20:42 7.89 MLS/HR Vecuronium [place] (Norcuron Bolus) 6 mg PRN Q4HRS PRN 01/15/18 15:00 01/17/18 12:41 6 MG Lab Laboratory Tests Test 01/17/18 17:21 01/17/18 23:49 01/18/18 05:00 01/18/18 05:40 Glucose (Fingerstick) 345 mg/dL (70-99) 312 mg/dL (70-99) 391 mg/dL (70-99) Sodium Level 151 mmol/L (136-145) Potassium Level 4.2 mmol/L (3.5-5.1) Chloride Level 113 mmol/L (98-107) Carbon Dioxide Level 25 mmol/L (21-32) Anion Gap 13 (6-14) Blood Urea Nitrogen 53 mg/dL (8-26) Creatinine 3.8 mg/dL (0.7-1.3) Estimated GFR (Cockcroft-Gault) 17.5 Glucose Level 446 mg/dL (70-99) Calcium Level 9.8 mg/dL (8.5-10.1) Phosphorus Level 4.4 mg/dL (2.6-4.7) Magnesium Level 1.5 mg/dL (1.8-2.4) Triglycerides Level 276 mg/dL (0-150) Test 01/18/18 05:49 01/18/18 08:00 01/18/18 08:23 Ionized Calcium 1.18 mmol/L (1.13-1.32) O2 Saturation 94 % (92-99) Arterial Blood pH 7.35 (7.35-7.45) Arterial Blood pCO2 at Patient Temp 41 mmHg (35-46) Arterial Blood pO2 at Patient Temp 70 mmHg (75-108) Arterial Blood HCO3 22 mmol/L (21-28) Arterial Blood Base Excess -3 mmol/L (-3-3) FiO2 40 Glucose (Fingerstick) 428 mg/dL (70-99) Results All relevant outside records, renal labs, imaging studies, telemetry/EKG's were reviewed. RODRIGO KUMARI MD Jan 18, 2018 11:01
[2018-01-18] MEDS: INSULIN GLARGINE 300 UNITS/3 ML INSULN.PEN. SQ SCH (11:12)
[2018-01-18] MEDS ORDERED: MAGNESIUM SULFATE 1GM 100 ML IV ONE (11:30)
[2018-01-18] MEDS: DESMOPRESSIN 4 MCG/ML AMPUL. SQ SCH ×2 (11:46→21:38)
--- NOTE | 2018-01-18 11:54 | PDOC ---
PULMONARY PROGRESS NOTES Subjective remains on AC mode needs a lot of sedatives to control agitation/ needed to be on paralytic drip yesterday Vitals Vital Signs Date Time Temp Pulse Resp B/P (MAP) Pulse Ox O2 Delivery O2 Flow Rate FiO2 01/18/18 11:27 100 Ventilator 01/18/18 11:00 93 26 100/54 (69) 01/18/18 07:00 98.7 98.7 Lungs: Other (decrease bs) Cardiovascular: S1 Abdomen: Soft Extremities: Other (1+edema) Skin: Warm Labs Laboratory Tests Test 01/16/18 12:08 01/16/18 17:32 01/17/18 00:35 01/17/18 05:39 Glucose (Fingerstick) 239 mg/dL (70-99) 268 mg/dL (70-99) 343 mg/dL (70-99) 332 mg/dL (70-99) Test 01/17/18 06:00 01/17/18 07:00 01/17/18 10:18 01/17/18 17:21 White Blood Count 5.8 x10^3/uL (4.0-11.0) Red Blood Count 2.89 x10^6/uL (4.30-5.70) Hemoglobin 9.7 g/dL (13.0-17.5) Hematocrit 28.7 % (39.0-53.0) Mean Corpuscular Volume 99 fL (79-100) Mean Corpuscular Hemoglobin 33 pg (25-35) Mean Corpuscular Hemoglobin Concent 34 g/dL (31-37) Red Cell Distribution Width 14.3 % (11.5-14.5) Platelet Count 245 x10^3/uL (140-400) Neutrophils (%) (Auto) 60 % (31-73) Lymphocytes (%) (Auto) 22 % (24-48) Monocytes (%) (Auto) 16 % (0-9) Eosinophils (%) (Auto) 1 % (0-3) Basophils (%) (Auto) 1 % (0-3) Neutrophils # (Auto) 3.5 x10^3uL (1.8-7.7) Lymphocytes # (Auto) 1.3 x10^3/uL (1.0-4.8) Monocytes # (Auto) 1.0 x10^3/uL (0.0-1.1) Eosinophils # (Auto) 0.1 x10^3/uL (0.0-0.7) Basophils # (Auto) 0.1 x10^3/uL (0.0-0.2) Sodium Level 151 mmol/L (136-145) Potassium Level 4.0 mmol/L (3.5-5.1) Chloride Level 114 mmol/L (98-107) Carbon Dioxide Level 23 mmol/L (21-32) Anion Gap 14 (6-14) Blood Urea Nitrogen 56 mg/dL (8-26) Creatinine 4.9 mg/dL (0.7-1.3) Estimated GFR (Cockcroft-Gault) 13.0 BUN/Creatinine Ratio 11 (6-20) Glucose Level 368 mg/dL (70-99) Calcium Level 9.1 mg/dL (8.5-10.1) Phosphorus Level 3.7 mg/dL (2.6-4.7) Magnesium Level 1.7 mg/dL (1.8-2.4) Total Bilirubin 0.4 mg/dL (0.2-1.0) Aspartate Amino Transf (AST/SGOT) 21 U/L (15-37) Alanine Aminotransferase (ALT/SGPT) 25 U/L (16-63) Alkaline Phosphatase 76 U/L (46-116) Total Protein 6.3 g/dL (6.4-8.2) Albumin 1.7 g/dL (3.4-5.0) Albumin/Globulin Ratio 0.4 (1.0-1.7) O2 Saturation 98 % (92-99) Arterial Blood pH 7.35 (7.35-7.45) Arterial Blood pCO2 at Patient Temp 41 mmHg (35-46) Arterial Blood pO2 at Patient Temp 106 mmHg (75-108) Arterial Blood HCO3 22 mmol/L (21-28) Arterial Blood Base Excess -3 mmol/L (-3-3) FiO2 40 Glucose (Fingerstick) 312 mg/dL (70-99) 345 mg/dL (70-99) Test 01/17/18 23:49 01/18/18 05:00 01/18/18 05:40 01/18/18 05:49 Glucose (Fingerstick) 312 mg/dL (70-99) 391 mg/dL (70-99) Sodium Level 151 mmol/L (136-145) Potassium Level 4.2 mmol/L (3.5-5.1) Chloride Level 113 mmol/L (98-107) Carbon Dioxide Level 25 mmol/L (21-32) Anion Gap 13 (6-14) Blood Urea Nitrogen 53 mg/dL (8-26) Creatinine 3.8 mg/dL (0.7-1.3) Estimated GFR (Cockcroft-Gault) 17.5 Glucose Level 446 mg/dL (70-99) Calcium Level 9.8 mg/dL (8.5-10.1) Phosphorus Level 4.4 mg/dL (2.6-4.7) Magnesium Level 1.5 mg/dL (1.8-2.4) Triglycerides Level 276 mg/dL (0-150) Ionized Calcium 1.18 mmol/L (1.13-1.32) Test 01/18/18 08:00 01/18/18 08:23 O2 Saturation 94 % (92-99) Arterial Blood pH 7.35 (7.35-7.45) Arterial Blood pCO2 at Patient Temp 41 mmHg (35-46) Arterial Blood pO2 at Patient Temp 70 mmHg (75-108) Arterial Blood HCO3 22 mmol/L (21-28) Arterial Blood Base Excess -3 mmol/L (-3-3) FiO2 40 Glucose (Fingerstick) 428 mg/dL (70-99) Laboratory Tests Test 01/17/18 17:21 01/17/18 23:49 01/18/18 05:00 01/18/18 05:40 Glucose (Fingerstick) 345 mg/dL (70-99) 312 mg/dL (70-99) 391 mg/dL (70-99) Sodium Level 151 mmol/L (136-145) Potassium Level 4.2 mmol/L (3.5-5.1) Chloride Level 113 mmol/L (98-107) Carbon Dioxide Level 25 mmol/L (21-32) Anion Gap 13 (6-14) Blood Urea Nitrogen 53 mg/dL (8-26) Creatinine 3.8 mg/dL (0.7-1.3) Estimated GFR (Cockcroft-Gault) 17.5 Glucose Level 446 mg/dL (70-99) Calcium Level 9.8 mg/dL (8.5-10.1) Phosphorus Level 4.4 mg/dL (2.6-4.7) Magnesium Level 1.5 mg/dL (1.8-2.4) Triglycerides Level 276 mg/dL (0-150) Test 01/18/18 05:49 01/18/18 08:00 01/18/18 08:23 Ionized Calcium 1.18 mmol/L (1.13-1.32) O2 Saturation 94 % (92-99) Arterial Blood pH 7.35 (7.35-7.45) Arterial Blood pCO2 at Patient Temp 41 mmHg (35-46) Arterial Blood pO2 at Patient Temp 70 mmHg (75-108) Arterial Blood HCO3 22 mmol/L (21-28) Arterial Blood Base Excess -3 mmol/L (-3-3) FiO2 40 Glucose (Fingerstick) 428 mg/dL (70-99) Medications Active Scripts Medications Dose Route/Sig Max Daily Dose Days Date Category [hemp botanicals] 01/12/18 Reported Maxitrol Eye Drops (Brandon/Polymyx B Sulf/Dexameth) 5 Ml Drops.susp 1 Drop OD QID 01/12/18 Reported Multivitamins (Multivitamin) 1 Each Tablet 1 Tab PO DAILY 01/12/18 Reported Magnesium (Magnesium Oxide) 400 Mg Capsule 1 Cap PO DAILY 01/12/18 Reported Calcium (Calcium Carbonate) 500 Mg Tab.chew 500 Mg PO 01/12/18 Reported Lansoprazole 30 Mg Capsule.dr 1 Cap PO DAILY 01/12/18 Reported Losartan Potassium 25 Mg Tablet 25 Mg PO DAILY 01/12/18 Reported Tizanidine Hcl 4 Mg Tablet 1 Tab PO TID 01/12/18 Reported Tramadol Hcl 50 Mg Tablet 50 Mg PO DAILY PRN 01/12/18 Reported Bystolic (Nebivolol Hcl) 20 Mg Tablet 20 Mg PO DAILY 01/12/18 Reported Cymbalta (Duloxetine Hcl) 20 Mg Capsule.dr 1 Cap PO DAILY 01/12/18 Reported Valacyclovir (Valacyclovir Hcl) 1,000 Mg Tablet 1 Tab PO DAILY 01/12/18 Reported Ibuprofen 400 Mg Tablet 400 Mg PO PRN Q6HRS PRN 09/21/15 Reported Bystolic (Nebivolol) 10 Mg Tablet 20 Mg PO DAILY 09/21/15 Reported Amlodipine Besylate 10 Mg Tablet 10 Mg PO DAILY 09/21/15 Reported Comments CXR 01/18 IMPRESSION: 1. Stable tube positions. basilar atelectasis/infiltrate. Impression . 1. Acute respiratory failure./ multi-factorial 2. severe encephalopathy/ delirium 3. Sepsis . source pancreatitis 4. alcohol withdrawal /sepsis/ needing multiple sedatives and now paralytics/ ativan drip, off versed drip 5. alcoholic pancreatitis 6. No obvious CHF/ normal EF 7. History of alcohol abuse. Level neg. Positive for Marihuana 8. Obesity? obstructive sleep apnea-hypopnea syndrome. 9. DENISHA,, better 10. Combined met/resp acidosis. improved Plan . 1. Titrate FiO2 to keep O2 saturation 94%.AC mode. not ready for weaning/ needing heavy amounts of sedation/ paralytics 2. change vent setting per ABG./ prn bicarb 3. bronchodilator. 4. repeat lipase 5. ID rec 6. Renal rec 7. Pepcid for stress ulcer prophylaxis. 8. Lovenox 9. follow amylase/ lipase 10. Control blood sugar. 13. The findings and recommendations were discussed with RN./ RT and father AJ FINK MD Jan 18, 2018 11:54
[2018-01-18] MEDS: TPN PER PHARMACY MC PRN (12:14)
[2018-01-18] MEDS: NORMAL SALINE IV SCH (15:30)
[2018-01-18] MEDS: DAPTOMYCIN IV SCH (15:30)
[2018-01-18] MEDS ORDERED: DEXTROSE 50% 25 GM / 50ML DISP.SYRIN. IV PRN (16:30)
[2018-01-18] MEDS ORDERED: NOREPINEPHRIN 8MG/250ML PREMIX 250 ML IV PRN (16:30)
[2018-01-18] MEDS: INSULIN REGULAR VIAL 150 UNIT in 0.9 % SODIUM CHLORIDE 150ML 150 ML IV PRN (17:05)
[2018-01-18] MEDS ORDERED: TOTAL PARENTERAL NUTRITION IV SCH ×10 (22:00)
[2018-01-18] MEDS ORDERED: DEXTROSE 70% IV SCH ×10 (22:00)
[2018-01-18] MEDS ORDERED: AMINO ACIDS IV SCH ×10 (22:00)
[2018-01-18] MEDS ORDERED: [UNRECOGNIZED DRUG - OTHER] IV SCH ×10 (22:00)
[2018-01-18] MEDS: TOTAL VOLUME IV PRN (22:55)
[2018-01-18] MEDS: VECURONIUM BROMIDE IV PRN (22:55)
[2018-01-19] VITALS (24 sets, daily range): BP systolic 103–207; BP diastolic 56–96
[2018-01-19] MEDS: INSULIN LISPRO 300 UNITS/3 ML INSULN.PEN. SQ SCH ×5 (00:25→23:59)
[2018-01-19] MEDS: DEXMEDETOMIDINE 200 MCG in IV NORMAL SALINE 50ML 48 ML IV PRN ×16 (00:58→23:54)
[2018-01-19] MEDS: HEPARIN for SUB-Q USE 5,000 UNIT/ML VIAL. SQ SCH ×3 (06:18→22:01)
[2018-01-19 06:21] LABS: CALCIUM 9.5 mg/dL (8.5-10.1); CREATININE 3.1 mg/dL (0.7-1.3); GFR 22.1; MAGNESIUM 2.2 mg/dL (1.8-2.4); PHOSPHORUS 4.9 mg/dL (2.6-4.7); POTASSIUM 3.3 mmol/L (3.5-5.1)
--- NOTE | 2018-01-19 07:04 | PDOC ---
PROGRESS NOTES Chief Complaint Chief Complaint 1. Acute respiratory failure. 2. etoh intoxication versus dependence, not protecting airway hence intubated at the emergency room 2. LLL pneumonia. 3. Sepsis - LLL pneumonia 4. Severe agitation, could be secondary to alcohol withdrawal versus sepsis versus others. 5. Hyperglycemia, with HYPERTRIGLYCERIDEMIA 6. Elevated BNP and troponin elevation 7. History of alcohol abuse. 8. Obesity BMI 39 - poss obstructive sleep apnea-hypopnea syndrome. History of Present Illness History of Present Illness Admitted with hallucinations and combative, was intubated soon after admission. Ketonuria on UA Intubated sedated, father states this is likely polysubstance abuse withdrawal Overnight: No further Fevers (Last was 101.4F on 01/17). Still on vecuronium GTT for agitation vent dysynchrony, Creatinine 3.8 this morning but making significant urine, sodium 157 and mag low, On insulin GTT with better glycemic control. Off cardene drip with sudden BP drop yesterday after daptomycin infusion. DDAVP x1 yesterday per nephro. No BM since 01/08, but has had nothing PO. Stable on TPN at 125cc/hr with addition of D5W and free water 200cc. A/P: Acute respiratory failure - 22/550/50% peep 7, appears to be developing PNA in LL on CXR, on zyvox. No further fevers since daptomycin addition Hypernatremia - possibly 2/2 TF. Sodium 157, at least 9L Free water deficit, NPO for pancreatitis, will defer to nephro Etoh intoxication versus dependence, not protecting airway hence intubated at the emergency room - no fevers for 2 days, could consider wean if he would comply with sedation reduction LLL pneumonia - changed to zyvox + daptomycin with improvement Sepsis - LLL pneumonia - cont fluids, will change to D5 1/2NSS. Daptomycin helping Acute renal failure - likely from sepsis, hypotension, ATN? Nephrology following , may need HD in the near future, but making urine Severe agitation, could be secondary to alcohol withdrawal versus sepsis versus others. Did paralyze 01/13/18 overnight and 01/15/18 overnight and for the past 24 hours on GTT Hyperglycemia, with HYPERTRIGLYCERIDEMIA - insulin GTT. TPN with his his elevated lipase Elevated BNP and troponin elevation - likely from sepsis - cardiology seeing History of alcohol abuse - on precedex, versed, fentanyl for likely withdrawal Obesity BMI 39 - poss obstructive sleep apnea-hypopnea syndrome. Heparin SQ Already on PPI IV nutrition consult for tube feeds-->TPN We will need alcohol rehabilitation referrals once extubated Supportive care Further conditions pending course. Met with his father, he is acutely worsening He continues with combative behavior, difficult disposition, he is very ill Vitals Vitals Vital Signs Date Time Temp Pulse Resp B/P (MAP) Pulse Ox O2 Delivery O2 Flow Rate FiO2 01/19/18 06:00 63 26 121/76 (91) 99 Ventilator 01/19/18 04:00 97.5 97.5 Physical Exam Physical Exam GENERAL: sedated and intubated. HEENT: Pupils small. ETT and NGT in place. LUNGS: Diminished aeration in the bases. HEART: S1 S2 Regular rhythm. ABDOMEN: Obese. BS active, so grimace or guarding to palpation. GENITOURINARY: Indwelling Cook in place. EXTREMITIES: 1 plus edema or cyanosis. SKIN: He has tattoos. warm without rash NEUROLOGIC: Unresponsive/sedated. RIJ - clean. General: Other (sedated on a ventilator.) Heart: Regular rate Lungs: Other (decrease bs) Abdomen: Normal bowel sounds Extremities: No clubbing, No cyanosis, No edema, Normal pulses Skin: No rashes, No breakdown Labs LABS Laboratory Tests Test 01/18/18 08:00 01/18/18 08:23 01/18/18 12:24 01/18/18 16:00 O2 Saturation 94 % (92-99) Arterial Blood pH 7.35 (7.35-7.45) Arterial Blood pCO2 at Patient Temp 41 mmHg (35-46) Arterial Blood pO2 at Patient Temp 70 mmHg (75-108) Arterial Blood HCO3 22 mmol/L (21-28) Arterial Blood Base Excess -3 mmol/L (-3-3) FiO2 40 Glucose (Fingerstick) 428 mg/dL (70-99) 402 mg/dL (70-99) 405 mg/dL (70-99) Test 01/18/18 18:00 01/18/18 19:08 01/18/18 20:09 01/18/18 21:10 Glucose (Fingerstick) 355 mg/dL (70-99) 329 mg/dL (70-99) 270 mg/dL (70-99) 261 mg/dL (70-99) Test 01/18/18 22:25 01/18/18 23:33 01/19/18 00:23 01/19/18 01:21 Glucose (Fingerstick) 196 mg/dL (70-99) 174 mg/dL (70-99) 153 mg/dL (70-99) 149 mg/dL (70-99) Test 01/19/18 02:15 01/19/18 03:17 01/19/18 04:19 01/19/18 05:21 Glucose (Fingerstick) 141 mg/dL (70-99) 152 mg/dL (70-99) 149 mg/dL (70-99) Sodium Level 157 mmol/L (136-145) Potassium Level 3.3 mmol/L (3.5-5.1) Chloride Level 118 mmol/L (98-107) Carbon Dioxide Level 23 mmol/L (21-32) Anion Gap 16 (6-14) Blood Urea Nitrogen 56 mg/dL (8-26) Creatinine 3.1 mg/dL (0.7-1.3) Estimated GFR (Cockcroft-Gault) 22.1 Glucose Level 191 mg/dL (70-99) Calcium Level 9.5 mg/dL (8.5-10.1) Phosphorus Level 4.9 mg/dL (2.6-4.7) Magnesium Level 2.2 mg/dL (1.8-2.4) Test 01/19/18 05:24 01/19/18 06:16 Glucose (Fingerstick) 164 mg/dL (70-99) 166 mg/dL (70-99) Assessment and Plan Assessmemt and Plan Problems Medical Problems: (1) Diabetic keto-acidosis Status: Acute (2) Hyperglycemia due to type 2 diabetes mellitus Status: Acute (3) Metabolic acidemia Status: Acute (4) Metabolic encephalopathy Status: Acute Comment Review of Relevant I have reviewed the following items franklyn (where applicable) has been applied. Labs Laboratory Tests Test 01/17/18 10:18 01/17/18 17:21 01/17/18 23:49 01/18/18 05:00 Glucose (Fingerstick) 312 mg/dL (70-99) 345 mg/dL (70-99) 312 mg/dL (70-99) Sodium Level 151 mmol/L (136-145) Potassium Level 4.2 mmol/L (3.5-5.1) Chloride Level 113 mmol/L (98-107) Carbon Dioxide Level 25 mmol/L (21-32) Anion Gap 13 (6-14) Blood Urea Nitrogen 53 mg/dL (8-26) Creatinine 3.8 mg/dL (0.7-1.3) Estimated GFR (Cockcroft-Gault) 17.5 Glucose Level 446 mg/dL (70-99) Calcium Level 9.8 mg/dL (8.5-10.1) Phosphorus Level 4.4 mg/dL (2.6-4.7) Magnesium Level 1.5 mg/dL (1.8-2.4) Triglycerides Level 276 mg/dL (0-150) Lipase 667 U/L (73-393) Test 01/18/18 05:40 01/18/18 05:49 01/18/18 08:00 01/18/18 08:23 Glucose (Fingerstick) 391 mg/dL (70-99) 428 mg/dL (70-99) Ionized Calcium 1.18 mmol/L (1.13-1.32) O2 Saturation 94 % (92-99) Arterial Blood pH 7.35 (7.35-7.45) Arterial Blood pCO2 at Patient Temp 41 mmHg (35-46) Arterial Blood pO2 at Patient Temp 70 mmHg (75-108) Arterial Blood HCO3 22 mmol/L (21-28) Arterial Blood Base Excess -3 mmol/L (-3-3) FiO2 40 Test 01/18/18 12:24 01/18/18 16:00 01/18/18 18:00 01/18/18 19:08 Glucose (Fingerstick) 402 mg/dL (70-99) 405 mg/dL (70-99) 355 mg/dL (70-99) 329 mg/dL (70-99) Test 01/18/18 20:09 01/18/18 21:10 01/18/18 22:25 01/18/18 23:33 Glucose (Fingerstick) 270 mg/dL (70-99) 261 mg/dL (70-99) 196 mg/dL (70-99) 174 mg/dL (70-99) Test 01/19/18 00:23 01/19/18 01:21 01/19/18 02:15 01/19/18 03:17 Glucose (Fingerstick) 153 mg/dL (70-99) 149 mg/dL (70-99) 141 mg/dL (70-99) 152 mg/dL (70-99) Test 01/19/18 04:19 01/19/18 05:21 01/19/18 05:24 01/19/18 06:16 Glucose (Fingerstick) 149 mg/dL (70-99) 164 mg/dL (70-99) 166 mg/dL (70-99) Sodium Level 157 mmol/L (136-145) Potassium Level 3.3 mmol/L (3.5-5.1) Chloride Level 118 mmol/L (98-107) Carbon Dioxide Level 23 mmol/L (21-32) Anion Gap 16 (6-14) Blood Urea Nitrogen 56 mg/dL (8-26) Creatinine 3.1 mg/dL (0.7-1.3) Estimated GFR (Cockcroft-Gault) 22.1 Glucose Level 191 mg/dL (70-99) Calcium Level 9.5 mg/dL (8.5-10.1) Phosphorus Level 4.9 mg/dL (2.6-4.7) Magnesium Level 2.2 mg/dL (1.8-2.4) Laboratory Tests Test 01/18/18 08:00 01/18/18 08:23 01/18/18 12:24 01/18/18 16:00 O2 Saturation 94 % (92-99) Arterial Blood pH 7.35 (7.35-7.45) Arterial Blood pCO2 at Patient Temp 41 mmHg (35-46) Arterial Blood pO2 at Patient Temp 70 mmHg (75-108) Arterial Blood HCO3 22 mmol/L (21-28) Arterial Blood Base Excess -3 mmol/L (-3-3) FiO2 40 Glucose (Fingerstick) 428 mg/dL (70-99) 402 mg/dL (70-99) 405 mg/dL (70-99) Test 01/18/18 18:00 01/18/18 19:08 01/18/18 20:09 01/18/18 21:10 Glucose (Fingerstick) 355 mg/dL (70-99) 329 mg/dL (70-99) 270 mg/dL (70-99) 261 mg/dL (70-99) Test 01/18/18 22:25 01/18/18 23:33 01/19/18 00:23 01/19/18 01:21 Glucose (Fingerstick) 196 mg/dL (70-99) 174 mg/dL (70-99) 153 mg/dL (70-99) 149 mg/dL (70-99) Test 01/19/18 02:15 01/19/18 03:17 01/19/18 04:19 01/19/18 05:21 Glucose (Fingerstick) 141 mg/dL (70-99) 152 mg/dL (70-99) 149 mg/dL (70-99) Sodium Level 157 mmol/L (136-145) Potassium Level 3.3 mmol/L (3.5-5.1) Chloride Level 118 mmol/L (98-107) Carbon Dioxide Level 23 mmol/L (21-32) Anion Gap 16 (6-14) Blood Urea Nitrogen 56 mg/dL (8-26) Creatinine 3.1 mg/dL (0.7-1.3) Estimated GFR (Cockcroft-Gault) 22.1 Glucose Level 191 mg/dL (70-99) Calcium Level 9.5 mg/dL (8.5-10.1) Phosphorus Level 4.9 mg/dL (2.6-4.7) Magnesium Level 2.2 mg/dL (1.8-2.4) Test 01/19/18 05:24 01/19/18 06:16 Glucose (Fingerstick) 164 mg/dL (70-99) 166 mg/dL (70-99) Microbiology 01/16/18 Blood Culture - Final, Complete 01/13/18 Throat Culture - Final, Complete 01/13/18 - Final, Complete Medications Current Medications Lorazepam (Ativan) 1 mg 1X ONCE IV Last administered on 01/11/18at 12:25; Start 01/11/18 at 12:30; Stop 01/11/18 at 12:31; Status DC Lorazepam (Ativan) 2 mg 1X ONCE IV Last administered on 01/11/18at 13:03; Start 01/11/18 at 12:45; Stop 01/11/18 at 12:46; Status DC Dextrose/Sodium Chloride 1,000 ml @ 0 mls/hr 1X ONCE IV ; Start 01/11/18 at 13:00; Stop 01/11/18 at 13:16; Status DC Sodium Chloride 1,000 ml @ 1,000 mls/hr 1X ONCE IV Last administered on 01/11at 13:41; Start 01/11/18 at 13:30; Stop 01/11/18 at 14:29; Status DC Sodium Chloride 1,000 ml @ 1,000 mls/hr 1X ONCE IV Last administered on 01/11at 13:42; Start 01/11/18 at 13:30; Stop 01/11/18 at 14:29; Status DC Lorazepam (Ativan) 1 mg 1X ONCE IV Last administered on 01/11/18at 15:08; Start 01/11/18 at 13:30; Stop 01/11/18 at 13:31; Status DC Lorazepam (Ativan) 1 mg 1X ONCE IV Last administered on 01/11/18at 13:43; Start 01/11/18 at 13:30; Stop 01/11/18 at 13:33; Status DC Aspirin (Children'S Aspirin) 324 mg 1X ONCE PO Last administered on at 14:02; Start 01/11/18 at 13:45; Stop 01/11/18 at 13:46; Status DC Haloperidol Lactate (Haldol Inj) 5 mg PRN Q6HRS PRN IVP SEVERE AGITATION Last administered on 01/16/18at 21:24; Start 01/11/18 at 16:15 Lorazepam (Ativan) 4 mg PRN Q4HRS PRN IV ANXIETY / AGITATION Last administered on 01/16/18at 09:32; Start 01/11/18 at 16:15 Multivitamins 10 ml/Thiamine HCl 100 mg/Folic Acid 1 mg/Sodium Chloride 1,011.2 ml @ 125 mls/ hr DAILY IV Last administered on 01/14/18at 08:19; Start at 17:00; Stop 01/14/18 at 21:59; Status DC Dexmedetomidine HCl 200 mcg/ Sodium Chloride 50 ml @ 0 mls/hr CONT PRN IV PER PROTOCOL Last administered on 01/11/18at 17:00; Start 01/11/18 at 16:45; Stop 01/11/18 at 18:38; Status DC Sodium Chloride 500 ml @ 500 mls/hr 1X PRN PRN IV SEE COMMENTS; Start at 16:45 Atropine Sulfate (ATROPINE 0.5mg SYRINGE) 0.5 mg PRN Q5MIN PRN IV SEE COMMENTS ; Start 01/11/18 at 16:45 Lorazepam (Ativan) 4 mg PRN Q1HR PRN PO For CIWA 8-14; Start 01/11/18 at 18:15 Lorazepam (Ativan) 8 mg PRN Q1HR PRN PO For CIWA 15 or greater; Start at 18:15 Lorazepam (Ativan) 2 mg PRN Q1HR PRN IV For CIWA 8-14; Start 01/11/18 at 18:15 Lorazepam (Ativan) 4 mg PRN Q1HR PRN IV For CIWA 15 or greater Last administered on 01/15/18at 23:04; Start 01/11/18 at 18:15 Diphenhydramine HCl (Benadryl) 25 mg PRN Q15MIN PRN IVP EPS symptoms 2'Haldol admin; Start 01/11/18 at 18:15 Olanzapine (ZyPREXA IM) 10 mg 1X ONCE IM Last administered on 01/11/18at 18:42 ; Start 01/11/18 at 18:45; Stop 01/11/18 at 18:46; Status DC Dexmedetomidine HCl 200 mcg/ Sodium Chloride 50 ml @ 7 mls/hr CONT PRN IV PER PROTOCOL; Start 01/11/18 at 18:38; Stop 01/11/18 at 21:19; Status DC Propofol 100 ml @ As Directed STK-MED ONCE IV ; Start 01/11/18 at 18:43; Stop 01/11/18 at 18:44; Status DC Succinylcholine Chloride (Anectine) 200 mg STK-MED ONCE .ROUTE ; Start at 18:44; Stop 01/11/18 at 18:45; Status DC Fentanyl Citrate 30 ml @ 2.5 mls/hr CONT PRN IV PER PROTOCOL Last administered on 01/19/18at 04:16; Start 01/11/18 at 19:00 Propofol 100 ml @ 4.2 mls/hr CONT PRN IV PER PROTOCOL; Start 01/11/18 at 18: 45; Status Cancel Fentanyl Citrate (Fentanyl 2ml Vial) 25 mcg PRN Q1HR PRN IV SEE COMMENTS.; Start 01/11/18 at 18:45 Fentanyl Citrate (Fentanyl 2ml Vial) 50 mcg PRN Q1HR PRN IV SEE COMMENTS. Last administered on 01/11/18at 20:21; Start 01/11/18 at 18:45 Morphine Sulfate (Morphine Sulfate) 2 mg PRN Q1HR PRN IV SEE COMMENTS.; Start 01/11/18 at 18:45 Morphine Sulfate (Morphine Sulfate) 4 mg PRN Q1HR PRN IV SEE COMMENTS.; Start 01/11/18 at 18:45 Hydromorphone HCl (Dilaudid) 0.2 mg PRN Q1HR PRN IV SEE COMMENTS.; Start 01/11 at 18:45 Hydromorphone HCl (Dilaudid) 0.4 mg PRN Q1HR PRN IV SEE COMMENTS.; Start 01/11 at 18:45 Morphine Sulfate (Morphine Sulfate) 2 mg PRN Q1HR PRN IV ; Start 01/11/18 at 18:45; Status UNV Morphine Sulfate (Morphine Sulfate) 4 mg PRN Q1HR PRN IV ; Start 01/11/18 at 18:45; Status UNV Midazolam HCl 100 ml @ 1 mls/hr CONT PRN IV PER PROTOCOL Last administered on 01/16/18at 04:52; Start 01/11/18 at 18:45; Stop 01/16/18 at 09:52; Status DC Epinephrine HCl (EPINEPHrine SYRINGE) 1 mg STK-MED ONCE .ROUTE ; Start at 18:56; Stop 01/11/18 at 18:57; Status DC Propofol 100 ml @ 2.103 mls/ hr CONT PRN IV SEE I/O RECORD Last administered on 01/11/18at 20:23; Start 01/11/18 at 19:00 Vecuronium Wynot (Norcuron Bolus) 10 mg STK-MED ONCE IV ; Start 01/11/18 at 19:02; Stop 01/11/18 at 19:03; Status DC Vancomycin HCl (Vanco Per Pharmacy) 1 each PRN DAILY PRN MC SEE COMMENTS Last administered on 01/12/18at 11:47; Start 01/11/18 at 20:15; Stop 01/12/18 at 13 :14; Status DC Piperacillin Sod/ Tazobactam Sod (Zosyn Per Pharmacy) 1 each PRN DAILY PRN MC SEE COMMENTS; Start 01/11/18 at 20:15; Stop 01/13/18 at 08:00; Status DC Piperacillin Sod/ Tazobactam Sod 4.5 gm/Sodium Chloride 100 ml @ 200 mls/hr Q6HRS IV Last administered on 01/13/18at 06:48; Start 01/12/18 at 00:00; Stop 01/13/18 at 07:57; Status DC Vancomycin HCl 2 gm/Sodium Chloride 500 ml @ 250 mls/hr 1X ONCE IV Last administered on 01/11/18at 21:00; Start 01/11/18 at 21:00; Stop 01/11/18 at 22 :59; Status DC Insulin Human Lispro (HumaLOG) 0-7 UNITS Q6HRS SQ Last administered on at 06:18; Start 01/12/18 at 00:00 Dextrose (Dextrose 50%-Water Syringe) 12.5 gm PRN Q15MIN PRN IV SEE COMMENTS; Start 01/11/18 at 21:00 Sodium Chloride 1,000 ml @ 100 mls/hr Q10H IV Last administered on 01/16/18at 03:59; Start 01/11/18 at 21:00; Stop 01/16/18 at 09:47; Status DC Dexmedetomidine HCl 200 mcg/ Sodium Chloride 50 ml @ 0 mls/hr CONT PRN IV PER PROTOCOL Last administered on 01/19/18at 06:59; Start 01/11/18 at 21:00 Acetaminophen (Tylenol) 650 mg PRN Q6HRS PRN PEG MILD PAIN / TEMP Last administered on 01/17/18at 15:52; Start 01/11/18 at 21:30 Magnesium Sulfate 50 ml @ 25 mls/hr 1X ONCE IV Last administered on at 01:27; Start 01/12/18 at 01:00; Stop 01/12/18 at 02:59; Status DC Sodium Chloride 1,000 ml @ 1,000 mls/hr 1X ONCE IV Last administered on 01/12at 01:00; Start 01/12/18 at 04:30; Stop 01/12/18 at 05:29; Status DC Vancomycin HCl 1.5 gm/Sodium Chloride 500 ml @ 250 mls/hr Q12H IV Last administered on 01/12/18at 08:44; Start 01/12/18 at 09:00; Stop 01/12/18 at 13 :14; Status DC Vancomycin HCl (Vancomycin Trough Level) 1 each 1X ONCE MC ; Start 01/12/18 at 20:30; Stop 01/12/18 at 20:30; Status DC Sodium Chloride 500 ml @ 500 mls/hr 1X ONCE IV Last administered on at 07:26; Start 01/12/18 at 07:00; Stop 01/12/18 at 07:59; Status DC Famotidine (Pepcid Vial) 20 mg BID IVP Last administered on 01/13/18at 20:49; Start 01/12/18 at 09:00; Stop 01/14/18 at 09:40; Status DC Albuterol/ Ipratropium (Duoneb) 3 ml RTQID NEB Last administered on 01/18/18at 19:44; Start 01/12/18 at 08:00 Heparin Sodium (Porcine) (Heparin Sodium) 5,000 unit Q8HRS SQ Last administered on 01/19/18at 06:18; Start 01/12/18 at 14:00 Gemfibrozil (Lopid) 600 mg BIDBFRMEAL PO Last administered on 01/18/18at 17:46 ; Start 01/12/18 at 10:00 Linezolid/Dextrose 300 ml @ 300 mls/hr Q12HR IV Last administered on at 08:39; Start 01/12/18 at 21:00; Stop 01/15/18 at 12:06; Status DC Vecuronium Wynot (Norcuron Bolus) 10 mg STK-MED ONCE IV ; Start 01/11/18 at 19:00; Stop 01/13/18 at 07:59; Status DC Succinylcholine Chloride (Anectine) 200 mg STK-MED ONCE .ROUTE ; Start at 19:00; Stop 01/13/18 at 07:59; Status DC Propofol (Diprivan) 1,000 mg STK-MED ONCE IV ; Start 01/11/18 at 19:00; Stop 01/13/18 at 07:59; Status DC Epinephrine HCl (EPINEPHrine SYRINGE) 1 mg STK-MED ONCE .ROUTE ; Start at 19:00; Stop 01/13/18 at 07:59; Status DC Piperacillin Sod/ Tazobactam Sod 2.25 gm/Sodium Chloride 50 ml @ 100 mls/hr Q8HRS IV Last administered on 01/16/18at 05:59; Start 01/13/18 at 14:00; Stop 01/16/18 at 07:31; Status DC Doxycycline Hyclate 100 mg/ Dextrose 100 ml @ 50 mls/hr Q12HR IV Last administered on 01/18/18at 21:38; Start 01/13/18 at 09:00 Sodium Bicarbonate (Sodium Bicarb Adult 8.4% Syr) 100 meq 1X ONCE IV Last administered on 01/13/18at 09:12; Start 01/13/18 at 09:15; Stop 01/13/18 at 09 :16; Status DC Sodium Chloride 1,000 ml @ 1,000 mls/hr Q1H IV ; Start 01/13/18 at 12:30; Status Cancel Sodium Chloride 1,000 ml @ 1,000 mls/hr 1X ONCE IV Last administered on 01/13at 12:15; Start 01/13/18 at 12:15; Stop 01/13/18 at 13:14; Status DC Vecuronium Wynot (Norcuron Bolus) 6 mg PRN Q6HRS PRN IV VENT ASYNCHRONY Last administered on 01/15/18at 10:23; Start 01/13/18 at 12:30; Stop 01/15/18 at 14 :51; Status DC Info (Tpn Per Pharmacy) 1 each PRN DAILY PRN MC SEE COMMENTS Last administered on 01/18/18at 12:14; Start 01/14/18 at 09:45 Famotidine (Pepcid Vial) 20 mg DAILY IVP Last administered on 01/18/18at 08:00 ; Start 01/15/18 at 09:00 Sodium Bicarbonate (Sodium Bicarb Adult 8.4% Syr) 50 meq STK-MED ONCE .ROUTE ; Start 01/14/18 at 11:12; Stop 01/14/18 at 11:13; Status DC Labetalol HCl (Normodyne Iv Push) 10 mg PRN Q4HRS PRN IVP HYPERTENSION, SEE COMMENTS Last administered on 01/17/18at 10:39; Start 01/14/18 at 11:30 Sodium Bicarbonate (Sodium Bicarb Adult 8.4% Syr) 100 meq 1X ONCE IV Last administered on 01/14/18at 11:34; Start 01/14/18 at 11:30; Stop 01/14/18 at 11 :31; Status DC Sodium Chloride 45 meq/Sodium Acetate 45 meq/ Potassium Chloride 30 meq/ Potassium Phosphate 6.8 mmol/Magnesium Sulfate 10 meq/ Calcium Gluconate 10 meq / Multivitamins 10 ml/Chromium/ Copper/Manganese/ Seleni/Zn 1 ml/ Thiamine HCl 100 mg/Folic Acid 1 mg/Total Julieta... 1,512 ml @ 63 mls/hr TPN CONT IV Last administered on 01/14/18at 21:37; Start 01/14/18 at 22:00; Stop 01/15/18 at 21:59; Status DC Labetalol HCl (Normodyne Iv Push) 20 mg PRN Q2HR PRN IVP HYPERTENSION, SEE COMMENTS Last administered on 01/16/18at 13:57; Start 01/14/18 at 15:30 Multivitamins 10 ml/Thiamine HCl 100 mg/Folic Acid 1 mg/Sodium Chloride 1,011.2 ml @ 1,000.088 mls/hr 1X ONCE IV ; Start 01/15/18 at 08:15; Stop 01/15/18 at 09:15; Status UNV Sodium Chloride 1,000 ml @ 1,000 mls/hr Q1H PRN IV hypotension; Start at 09:06; Stop 01/15/18 at 09:32; Status DC Albumin Human 200 ml @ 200 mls/hr 1X ONCE IV ; Start 01/15/18 at 09:15; Stop 01/15/18 at 09:32; Status DC Acetaminophen (Tylenol) 500 mg 1X PRN PRN PO MILD PAIN / TEMP; Start 01/15/18 at 09:15; Stop 01/15/18 at 09:32; Status DC Diphenhydramine HCl (Benadryl) 25 mg 1X PRN PRN IV ITCHING; Start 01/15/18 at 09:15; Stop 01/15/18 at 09:32; Status DC Pharmacy Consult (C.diff Med Screen By Rx) 1 each PRN 1X PRN MC SEE COMMENTS; Start 01/15/18 at 09:30; Status Cancel Sodium Chloride 1,000 ml @ 400 mls/hr Q2H30M PRN IV PATENCY; Start 01/15/18 at 09:06; Stop 01/15/18 at 09:32; Status DC Info (PHARMACY MONITORING -- do not chart) 1 each PRN DAILY PRN MC SEE COMMENTS ; Start 01/15/18 at 09:15 Sodium Acetate 75 meq/Potassium Chloride 30 meq/ Potassium Phosphate 6.8 mmol/ Magnesium Sulfate 13 meq/ Calcium Gluconate 10 meq/ Multivitamins 10 ml/Chromium / Copper/Manganese/ Seleni/Zn 1 ml/ Thiamine HCl 100 mg/Folic Acid 1 mg/Total Parenteral Nutrition/Amino Acids/Dextro... 1,492 ml @ 62.167 mls/ hr TPN CONT IV ; Start 01/15/18 at 22:00; Stop 01/15/18 at 22:00; Status DC Sodium Acetate 75 meq/Potassium Chloride 30 meq/ Potassium Phosphate 6.8 mmol/ Magnesium Sulfate 13 meq/ Calcium Gluconate 10 meq/ Multivitamins 10 ml/Chromium / Copper/Manganese/ Seleni/Zn 1 ml/ Thiamine HCl 100 mg/Folic Acid 1 mg/Total Parenteral Nutrition/Amino Acids/Dextro... 1,512 ml @ 63 mls/hr TPN CONT IV Last administered on 01/15/18at 22:07; Start 01/15/18 at 22:00; Stop 01/16/18 at 21:59; Status DC Vecuronium Wynot (Norcuron Bolus) 6 mg PRN Q4HRS PRN IV VENT ASYNCHRONY Last administered on 01/17/18at 12:41; Start 01/15/18 at 15:00 Meropenem 500 mg/ Sodium Chloride 50 ml @ 100 mls/hr Q12HR IV Last administered on 01/18/18at 21:37; Start 01/16/18 at 08:00 Metronidazole 100 ml @ 100 mls/hr Q8HRS IV Last administered on 01/19/18at 06: 17; Start 01/16/18 at 08:00 Chlorhexidine Gluconate (Peridex) 15 ml BID MM ; Start 01/16/18 at 21:00; Status Cancel Dextrose/Sodium Chloride 1,000 ml @ 50 mls/hr Q20H IV ; Start 01/16/18 at 10: 00; Stop 01/17/18 at 13:11; Status DC Lorazepam 100 mg/ Sodium Chloride 100 ml @ 2 mls/hr CONT PRN IV SEE PROTOCOL Last administered on 01/18/18at 23:42; Start 01/16/18 at 09:45 Potassium Acetate 30 meq/Potassium Phosphate 3.4 mmol/Magnesium Sulfate 15 meq/ Calcium Gluconate 10 meq/ Multivitamins 10 ml/Chromium/ Copper/Manganese/ Seleni /Zn 1 ml/ Thiamine HCl 100 mg/Folic Acid 1 mg/Total Parenteral Nutrition/Amino Acids/Dextrose 1,512 ml @ 63 mls/hr TPN CONT IV Last administered on at 21:52; Start 01/16/18 at 22:00; Stop 01/17/18 at 21:59; Status DC Hydralazine HCl (Apresoline Inj) 20 mg PRN TID PRN IVP SBP>160 2ND CHOICE Last administered on 01/16/18at 15:27; Start 01/16/18 at 15:30 Nicardipine HCl 50 mg/Sodium Chloride 270 ml @ 27 mls/hr CONT PRN IV SEE I/O RECORD Last administered on 01/18/18at 14:32; Start 01/16/18 at 16:30 Dextrose 500 ml @ 500 mls/hr 1X ONCE IV ; Start 01/17/18 at 07:30; Stop at 10:53; Status DC Insulin Glargine (Lantus) 10 units QHS SQ ; Start 01/17/18 at 21:00; Status Cancel Insulin Glargine (Lantus) 10 units DAILY10 SQ Last administered on 01/18/18at 11:12; Start 01/17/18 at 10:00; Stop 01/18/18 at 16:41; Status DC Dextrose 1,000 ml @ 75 mls/hr [id number] IV Last administered on 01/18/18at 14:56 ; Start 01/17/18 at 11:00 Potassium Acetate 30 meq/Potassium Phosphate 3.4 mmol/Magnesium Sulfate 18 meq/ Calcium Gluconate 10 meq/ Multivitamins 10 ml/Chromium/ Copper/Manganese/ Seleni /Zn 1 ml/ Thiamine HCl 100 mg/Folic Acid 1 mg/Total Parenteral Nutrition/Amino Acids/Dextrose 1,728 ml @ 72 mls/hr TPN CONT IV Last administered on at 21:25; Start 01/17/18 at 22:00; Stop 01/18/18 at 21:59; Status DC Vecuronium [place] 100 mg/ Dextrose 100 ml @ 7.89 mls/hr CONT PRN IV SEE I/O RECORD; Start 01/17/18 at 19:45; Status Cancel Vecuronium [place] 100 mg/ Miscellaneous 100 ml @ 7.89 mls/hr CONT PRN IV SEE I/O RECORD Last administered on 01/18/18at 22:55; Start 01/17/18 at 19:45 Insulin Human Lispro (HumaLOG) 10 units 1X ONCE SQ ; Start 01/18/18 at 06:30; Stop 01/18/18 at 06:31; Status DC Insulin Human Lispro (HumaLOG) 8 units Q4HRS SQ Last administered on at 12:28; Start 01/18/18 at 08:30; Stop 01/18/18 at 16:32; Status DC Magnesium Sulfate 50 ml @ 25 mls/hr PRN DAILY PRN IV for mag < 1.7 on am labs Last administered on 01/18/18at 11:44; Start 01/18/18 at 11:00 Desmopressin Acetate (Ddavp) 4 mcg BID SQ Last administered on 01/18/18at 21:38 ; Start 01/18/18 at 11:30; Stop 01/18/18 at 21:01; Status DC Magnesium Sulfate/ Dextrose 100 ml @ 100 mls/hr 1X ONCE IV Last administered on 01/18/18at 11:49; Start 01/18/18 at 11:30; Stop 01/18/18 at 12:29; Status DC Potassium Acetate 30 meq/Magnesium Sulfate 25 meq/ Calcium Gluconate 10 meq/ Multivitamins 10 ml/Chromium/ Copper/Manganese/ Seleni/Zn 1 ml/ Thiamine HCl 100 mg/Folic Acid 1 mg/Total Parenteral Nutrition/Amino Acids/Dextrose/ Fat Emulsion Intravenous 3,000 ml @ 125 mls/hr TPN CONT IV Last administered on 01/18/18at 21:50; Start 01/18/18 at 22:00; Stop 01/19/18 at 21:59 Daptomycin 780 mg/ Sodium Chloride 50 ml @ 100 mls/hr Q48H IV Last administered on 01/18/18at 15:30; Start 01/18/18 at 15:30 Insulin Human Regular 150 unit/ Sodium Chloride 151.5 ml @ 0 mls/hr CONT PRN IV SEE I/O RECORD Last administered on 01/18/18at 17:05; Start 01/18/18 at 16: 30 Dextrose (Dextrose 50%-Water Syringe) 12.5 gm PRN Q15MIN PRN IV LOW BLOOD SUGAR ; Start 01/18/18 at 16:30; Status UNV Norepinephrine Bitartrate 250 ml @ 1.875 mls/ hr CONT PRN IV SEE I/O RECORD; Start 01/18/18 at 16:30 Active Scripts Active Reported [hemp botanicals] Maxitrol Eye Drops (Brandon/Polymyx B Sulf/Dexameth) 5 Ml Drops.susp 1 Drop OD QID Multivitamins (Multivitamin) 1 Each Tablet 1 Tab PO DAILY Magnesium (Magnesium Oxide) 400 Mg Capsule 1 Cap PO DAILY Calcium (Calcium Carbonate) 500 Mg Tab.chew 500 Mg PO Lansoprazole 30 Mg Capsule.dr 1 Cap PO DAILY Losartan Potassium 25 Mg Tablet 25 Mg PO DAILY Tizanidine Hcl 4 Mg Tablet 1 Tab PO TID Tramadol Hcl 50 Mg Tablet 50 Mg PO DAILY PRN Bystolic (Nebivolol Hcl) 20 Mg Tablet 20 Mg PO DAILY Cymbalta (Duloxetine Hcl) 20 Mg Capsule.dr 1 Cap PO DAILY Valacyclovir (Valacyclovir Hcl) 1,000 Mg Tablet 1 Tab PO DAILY Ibuprofen 400 Mg Tablet 400 Mg PO PRN Q6HRS PRN Bystolic (Nebivolol) 10 Mg Tablet 20 Mg PO DAILY Amlodipine Besylate 10 Mg Tablet 10 Mg PO DAILY Vitals/I & O Vital Sign - Last 24 Hours 01/18/18 01/18/18 01/18/18 01/18/18 07:20 08:00 08:00 09:00 Pulse 90 80 Resp 26 B/P (MAP) 138/79 (98) 99/57 (71) Pulse Ox 98 100 O2 Delivery Ventilator Ventilator Mechanical Ventilator 01/18/18 01/18/18 01/18/18 01/18/18 09:13 10:00 10:08 11:00 Pulse 76 93 Resp 20 26 B/P (MAP) 98/56 (70) 100/54 (69) Pulse Ox 99 98 O2 Delivery Ventilator Ventilator Ventilator 01/18/18 01/18/18 01/18/18 01/18/18 11:27 12:00 12:00 13:00 Pulse 94 108 Resp B/P (MAP) 146/81 (102) 147/79 (101) Pulse Ox 100 100 100 O2 Delivery Ventilator Ventilator Mechanical Ventilator Ventilator 01/18/18 01/18/18 01/18/18 01/18/18 13:08 14:00 15:00 15:28 Pulse 112 110 Resp B/P (MAP) 137/75 (95) 149/82 (104) Pulse Ox 100 100 100 100 O2 Delivery Ventilator Ventilator Ventilator Ventilator 01/18/18 01/18/18 01/18/18 01/18/18 16:00 16:00 16:07 16:15 Pulse 94 92 92 Resp B/P (MAP) 80/48 (59) 79/42 (54) 81/45 (57) Pulse Ox 100 O2 Delivery Mechanical Ventilator Ventilator 01/18/18 01/18/18 01/18/18 01/18/18 16:16 16:30 16:45 16:58 Pulse 90 88 Resp B/P (MAP) 86/47 (60) 87/50 (62) Pulse Ox 100 O2 Delivery Ventilator 01/18/18 01/18/18 01/18/18 01/18/18 17:00 17:45 18:00 19:00 Temp 99.5 99.5 Pulse 88 82 93 Resp 26 B/P (MAP) 116/64 (81) 109/57 (74) 147/73 (97) Pulse Ox 100 100 100 O2 Delivery Ventilator Ventilator Ventilator 01/18/18 01/18/18 01/18/18 01/18/18 19:43 20:00 20:00 21:00 Temp 99.8 99.8 Pulse 98 94 Resp B/P (MAP) 176/84 (114) 155/76 (102) Pulse Ox 100 100 100 O2 Delivery Ventilator Ventilator Mechanical Ventilator Ventilator 01/18/18 01/18/18 01/18/18 01/18/18 21:50 22:00 23:00 23:45 Pulse 80 78 Resp B/P (MAP) 103/51 (68) 110/56 (74) Pulse Ox 100 100 100 100 O2 Delivery Ventilator Ventilator Ventilator Ventilator 10/21/18 01/19/18 01/19/18 01/19/18 00:00 00:00 01:00 01:10 Temp 99.0 99.0 Pulse 73 70 Resp B/P (MAP) 112/56 (74) 116/62 (80) Pulse Ox 100 100 100 O2 Delivery Ventilator Mechanical Ventilator Ventilator Ventilator 01/19/18 01/19/18 01/19/18 01/19/18 02:00 03:00 03:40 04:00 Temp 97.5 97.5 Pulse 71 71 67 Resp B/P (MAP) 137/80 (99) 113/65 (81) 117/69 (85) Pulse Ox 100 100 100 99 O2 Delivery Ventilator Ventilator Ventilator Ventilator 01/19/18 01/19/18 01/19/18 01/19/18 04:00 05:00 05:45 06:00 Pulse 64 63 Resp B/P (MAP) 120/74 (89) 121/76 (91) Pulse Ox 99 100 99 O2 Delivery Mechanical Ventilator Ventilator Ventilator Ventilator Intake and Output 01/18/18 01/18/18 01/19/18 15:00 23:00 07:00 Intake Total 1972.5 ml 2635 ml Output Total 1525 ml 1400 ml 1405 ml Balance -1525 ml 572.5 ml 1230 ml JOSE APPIAH MD Jan 19, 2018 07:04
[2018-01-19] MEDS: IPRATRPIUM/ALBUTEROL 0.5/2.5MG 3 ML NEBU. NEB SCH ×4 (07:27→19:57)
[2018-01-19 07:39] LABS: BASE EXCESS ABG -4 mmol/L (-3-3); HCO3 ABG 22 mmol/L (21-28); PO2 ABG 94 mmHg (75-108); SAT O2 ABG 97 % (92-99)
[2018-01-19 07:44] LABS: FIO2 ABG 40; PCO2 ABG 44 mmHg (35-46)
[2018-01-19] MEDS: IV DEXTROSE 5% 1,000 ML IV SCH ×2 (08:14→16:53)
[2018-01-19] MEDS: INSULIN REGULAR VIAL 150 UNIT in 0.9 % SODIUM CHLORIDE 150ML 150 ML IV PRN (08:15)
[2018-01-19] MEDS: GEMFIBROZIL 600 MG TABLET. PO SCH ×2 (08:24→17:35)
[2018-01-19] MEDS: FAMOTIDINE 20 MG/2 ML VIAL IVP SCH (08:24)
[2018-01-19] MEDS: DOXYCYCLINE HYCLATE 100 MG in IV DEXTROSE 5% 100ML 100 ML IV SCH ×2 (08:24→20:49)
[2018-01-19] MEDS: MEROPENEM 500 MG in IV NORMAL SALINE 50ML 50 ML IV SCH ×2 (08:24→20:49)
--- NOTE | 2018-01-19 08:31 | PDOC ---
Infectious Disease Note Subjective Subjective Sedated and paralyzed Remains intubated/vent. No fevers last 24 hours TPN No vomiting or diarrhea reported ROS ROS Unobtainable as patient is sedated and intubated Vital Sign Vital Signs Vital Signs Date Time Temp Pulse Resp B/P (MAP) Pulse Ox O2 Delivery O2 Flow Rate FiO2 01/19/18 07:34 100 Ventilator 01/19/18 07:00 63 26 123/77 (92) 01/19/18 04:00 97.5 97.5 Physical Exam PHYSICAL EXAM GENERAL: sedated and intubated. HEENT: Pupils small. ETT and NGT in place. LUNGS: Diminished aeration in the bases. HEART: S1 S2 Regular rhythm. ABDOMEN: Obese. BS active, so grimace or guarding to palpation. GENITOURINARY: Indwelling Cook in place. EXTREMITIES: 1 plus edema or cyanosis. SKIN: He has tattoos. warm without rash NEUROLOGIC: Unresponsive/sedated. RIJ - clean. Labs Lab Laboratory Tests Test 01/18/18 12:24 01/18/18 16:00 01/18/18 18:00 01/18/18 19:08 Glucose (Fingerstick) 402 mg/dL (70-99) 405 mg/dL (70-99) 355 mg/dL (70-99) 329 mg/dL (70-99) Test 01/18/18 20:09 01/18/18 21:10 01/18/18 22:25 01/18/18 23:33 Glucose (Fingerstick) 270 mg/dL (70-99) 261 mg/dL (70-99) 196 mg/dL (70-99) 174 mg/dL (70-99) Test 01/19/18 00:23 01/19/18 01:21 01/19/18 02:15 01/19/18 03:17 Glucose (Fingerstick) 153 mg/dL (70-99) 149 mg/dL (70-99) 141 mg/dL (70-99) 152 mg/dL (70-99) Test 01/19/18 04:19 01/19/18 05:21 01/19/18 05:24 01/19/18 06:16 Glucose (Fingerstick) 149 mg/dL (70-99) 164 mg/dL (70-99) 166 mg/dL (70-99) Sodium Level 157 mmol/L (136-145) Potassium Level 3.3 mmol/L (3.5-5.1) Chloride Level 118 mmol/L (98-107) Carbon Dioxide Level 23 mmol/L (21-32) Anion Gap 16 (6-14) Blood Urea Nitrogen 56 mg/dL (8-26) Creatinine 3.1 mg/dL (0.7-1.3) Estimated GFR (Cockcroft-Gault) 22.1 Glucose Level 191 mg/dL (70-99) Calcium Level 9.5 mg/dL (8.5-10.1) Phosphorus Level 4.9 mg/dL (2.6-4.7) Magnesium Level 2.2 mg/dL (1.8-2.4) Test 01/19/18 07:30 O2 Saturation 97 % (92-99) Arterial Blood pH 7.32 (7.35-7.45) Arterial Blood pCO2 at Patient Temp 44 mmHg (35-46) Arterial Blood pO2 at Patient Temp 94 mmHg (75-108) Arterial Blood HCO3 22 mmol/L (21-28) Arterial Blood Base Excess -4 mmol/L (-3-3) FiO2 40 Micro 01/16. BLOOD CULTURE Final GRAM POSITIVE COCCI IN CLUSTERS, SUGGESTIVE OF STAPH, IN 1 OF 3 BOTTLES, TWO SETS DRAWN ON 01/16/18. Objective Assessment GPC bacteremia (1 of 3 bottles) from 01/16 Pancreatitis Fever likely sec to above/+- aspiration/? infection - better DENISHA Aspiration pneumonia. - Group A strep/Strep pneumo/legionella neg. Gram stain from sputum GPC in pairs from 01/12, no growth Acute encephalopathy with hallucinations and behavioral change Lactic acidosis, improved. Heavy alcohol use. Hyperglycemia. Worsening back pain with urinary incontinence prior to admission. History of methicillin-resistant Staphylococcus aureus - in back Morbid obesity Plan Plan of Care Meropenem (started 01/16) and doxy cont daptomycin renal dosing BC from 01/08 pending -Previously on Zosyn Check C-diff with colitis although likely reactive - Flagyl May need repeat CT abd Monitor labs/temp Await GPC ID Consider LP as pt is off sedation and is doing ok D/w RN D/w Dr. Eid Critically ill Patient seen, examined, I agree with above. Assessment and plan was formulated with OFFICE MESSENGER. IMTIAZ MUELLER APRN Jan 19, 2018 08:31 JENNIFER KUMARI MD Jan 19, 2018 13:07
[2018-01-19] MEDS: LORazepam 100 MG in IV NORMAL SALINE 100ML 50 ML IV PRN ×2 (09:04→19:56)
--- NOTE | 2018-01-19 09:10 | RAD ---
Arterial Doppler study left lower extremity 01/19/2018. Reason for exam: Decreased pulses. Color Doppler and spectral waveform analysis was performed along with real-time grayscale technique. No significant plaque is seen. Normal triphasic waveforms are shown from the common femoral artery level through the SFA and popliteal level and into the trifurcation vessels. Flow is seen in the trifurcation vessels, including the dorsalis pedis and distal posterior tibial branch at the ankle. No focal velocity elevation is seen to indicate a localized stenosis. IMPRESSION: Normal study. Ultrasound venous system of the left lower extremity 01/19/2018. Reason for exam: Respiratory distress. Evaluate for pulmonary embolism. Decreased pulses. Color Doppler and spectral waveform analysis was performed along with real-time grayscale technique. The deep venous system of the left lower extremity shows normal compressibility and normal Doppler flow and augmentation of flow extending from the common femoral segment to the popliteal segment. The visualized calf veins also appear normal. IMPRESSION: No evidence of DVT. Electronically signed by: Liban Ty Jr., MD (01/19/2018 9:07 AM) [facility] [place] [facility] [place]
--- NOTE | 2018-01-19 11:44 | PDOC ---
SUBJECTIVE ROS DENISHA + ^Na Remains sedated intubated on the vent currently. Polyuria appears to be slowing down. No bowel movement noted. He remains on TPN OBJECTIVE Vital Signs Vital Signs Date Time Temp Pulse Resp B/P (MAP) Pulse Ox O2 Delivery O2 Flow Rate FiO2 01/19/18 11:08 100 Ventilator 01/19/18 11:00 68 26 131/81 (98) 01/19/18 08:00 96.8 96.8 I & 0 Intake and Output 01/19/18 07:00 Intake Total 4607.5 ml Output Total 4630 ml Balance -22.5 ml IV Total 4607.5 ml Output Urine Total 4630 ml PHYSICAL EXAM Physical Exam GEN: Remains sedated intubated on the vent. EYES: Sclera is anicteric on my exam, Conjunctiva Normal EN: No EN Drainage, Mucous Membranes moist, orally intubated NECK: no JVD, no JVP, Supple, no Thyromegaly CVS: S1S2, no Murmur, No Gallop, No Rub,+2 Edema RESP: rare basal Rales, no Rhonchi,no Acc. Muscle Use GI: BS hypoactive if any, NO Bruit, Non Tender, Non Distended : no CVA tenderness, no Suprapubic Tenderness DIAGNOSIS/ASSESSMENT Assessment & Plan DENISHA - ATN with Oliguria. Creatinine is improving. Urine output is brisk now to the extent of polyuria, Currently No Emergent Indication for EDGER HAND Polyuria: Suspect early as a result of recovering ATN. This appears to have slowed down after vasopressin. Other etiologies cannot be ruled out. Discussed with pharmacy regarding adding water to TPN. Pancreatitis- h/o alcohol and hypertriglyceridemia, remains on lipid free TPN for the time being Hypernatremia- he has been on sodium free TPN currently. He however is polyuric. Hence will use DDAVP until sodium corrects to approximately 145 Hypomagnesemia: Replace when necessary as needed Hypokalemia: Replacement per protocol History of Heavy alcohol use, now with possible alcoholic pancreatitis associated with elevated triglycerides. Discussed with RN COMMENT/RELEVANT DATA Meds Current Medications Medications (Trade) Dose Ordered Sig/Yamile Start Time Stop Time Status Last Admin Dose Admin Acetaminophen (Tylenol) 500 mg 1X PRN PRN 01/15/18 09:15 01/15/18 09:32 DC Albumin Human 200 ml @ 200 mls/hr 1X ONCE 10/17/18 09:15 01/15/18 09:32 DC Albuterol/ Ipratropium (Duoneb) 3 ml RTQID 01/12/18 08:00 01/19/18 11:08 3 ML Aspirin (Children'S Aspirin) 324 mg 1X ONCE 01/11/18 13:45 01/11/18 13:46 DC 01/11/18 14:02 324 MG Atropine Sulfate (ATROPINE 0.5mg SYRINGE) 0.5 mg PRN Q5MIN PRN 01/11/18 16:45 Chlorhexidine Gluconate (Peridex) 15 ml BID 01/16/18 21:00 Cancel Daptomycin 780 mg/ Sodium Chloride 50 ml @ 100 mls/hr Q48H 01/18/18 15:30 01/18/18 15:30 100 MLS/HR Desmopressin Acetate (Ddavp) 4 mcg BID 01/18/18 11:30 01/18/18 21:01 DC 01/18/18 21:38 4 MCG Dexmedetomidine HCl 200 mcg/ Sodium Chloride 50 ml @ 0 mls/hr CONT PRN 01/11/18 21:00 01/19/18 09:39 35.1 MLS/HR Dextrose (Dextrose 50%-Water Syringe) 12.5 gm PRN Q15MIN PRN 01/18/18 16:30 UNV Dextrose/Sodium Chloride 1,000 ml @ 50 mls/hr Q20H 01/16/18 10:00 01/17/18 13:11 DC Diphenhydramine HCl (Benadryl) 25 mg 1X PRN PRN 01/15/18 09:15 01/15/18 09:32 DC Doxycycline Hyclate 100 mg/ Dextrose 100 ml @ 50 mls/hr Q12HR 01/13/18 09:00 01/19/18 08:24 50 MLS/HR Epinephrine HCl (EPINEPHrine SYRINGE) 1 mg STK-MED ONCE 01/11/18 19:00 01/13/18 07:59 DC Famotidine (Pepcid Vial) 20 mg DAILY 01/15/18 09:00 01/19/18 08:24 20 MG Fentanyl Citrate (Fentanyl 2ml Vial) 50 mcg PRN Q1HR PRN 01/11/18 18:45 01/11/18 20:21 50 MCG Gemfibrozil (Lopid) 600 mg BIDBFRMEAL 01/12/18 10:00 01/19/18 08:24 600 MG Haloperidol Lactate (Haldol Inj) 5 mg PRN Q6HRS PRN 01/11/18 16:15 01/16/18 21:24 5 MG Heparin Sodium (Porcine) (Heparin Sodium) 5,000 unit Q8HRS 01/12/18 14:00 01/19/18 06:18 5,000 UNIT Hydralazine HCl (Apresoline Inj) 20 mg PRN TID PRN 01/16/18 15:30 01/16/18 15:27 20 MG Hydromorphone HCl (Dilaudid) 0.4 mg PRN Q1HR PRN 01/11/18 18:45 Info (PHARMACY MONITORING -- do not chart) 1 each PRN DAILY PRN 01/15/18 09:15 Info (Tpn Per Pharmacy) 1 each PRN DAILY PRN 01/14/18 09:45 01/18/18 12:14 1 EACH Insulin Glargine (Lantus) 10 units DAILY10 01/17/18 10:00 01/18/18 16:41 DC 01/18/18 11:12 10 UNITS Insulin Human Lispro (HumaLOG) 8 units Q4HRS 01/18/18 08:30 01/18/18 16:32 DC 01/18/18 12:28 8 UNITS Insulin Human Regular 150 unit/ Sodium Chloride 151.5 ml @ 0 mls/hr CONT PRN 01/18/18 16:30 01/19/18 08:15 9.3 MLS/HR Labetalol HCl (Normodyne Iv Push) 20 mg PRN Q2HR PRN 01/14/18 15:30 01/16/18 13:57 20 MG Linezolid/Dextrose 300 ml @ 300 mls/hr Q12HR 01/12/18 21:00 01/15/18 12:06 DC 01/15/18 08:39 300 MLS/HR Lorazepam (Ativan) 4 mg PRN Q1HR PRN 01/11/18 18:15 01/15/18 23:04 4 MG Lorazepam 100 mg/ Sodium Chloride 100 ml @ 2 mls/hr CONT PRN 01/16/18 09:45 01/19/18 09:04 10 MLS/HR Magnesium Sulfate 50 ml @ 25 mls/hr PRN DAILY PRN 01/18/18 11:00 01/18/18 11:44 25 MLS/HR Magnesium Sulfate/ Dextrose 100 ml @ 100 mls/hr 1X ONCE 01/18/18 11:30 01/18/18 12:29 DC 01/18/18 11:49 100 MLS/HR Meropenem 500 mg/ Sodium Chloride 50 ml @ 100 mls/hr Q12HR 01/16/18 08:00 01/19/18 08:24 100 MLS/HR Metronidazole 100 ml @ 100 mls/hr Q8HRS 01/16/18 08:00 01/19/18 06:17 100 MLS/HR Midazolam HCl 100 ml @ 1 mls/hr CONT PRN 01/11/18 18:45 01/16/18 09:52 DC 01/16/18 04:52 15 MLS/HR Morphine Sulfate (Morphine Sulfate) 4 mg PRN Q1HR PRN 01/11/18 18:45 UNV Multivitamins 10 ml/Thiamine HCl 100 mg/Folic Acid 1 mg/Sodium Chloride 1,011.2 ml @ 1,000.088 mls/hr 1X ONCE 01/15/18 08:15 01/15/18 09:15 UNV Nicardipine HCl 50 mg/Sodium Chloride 270 ml @ 27 mls/hr CONT PRN 01/16/18 16:30 01/18/18 14:32 54 MLS/HR Norepinephrine Bitartrate 250 ml @ 1.875 mls/ hr CONT PRN 01/18/18 16:30 Olanzapine (ZyPREXA IM) 10 mg 1X ONCE 01/11/18 18:45 01/11/18 18:46 DC 01/11/18 18:42 10 MG Pharmacy Consult (C.diff Med Screen By Rx) 1 each PRN 1X PRN 01/15/18 09:30 Cancel Piperacillin Sod/ Tazobactam Sod (Zosyn Per Pharmacy) 1 each PRN DAILY PRN 01/11/18 20:15 01/13/18 08:00 DC Piperacillin Sod/ Tazobactam Sod 2.25 gm/Sodium Chloride 50 ml @ 100 mls/hr Q8HRS 01/13/18 14:00 01/16/18 07:31 DC 01/16/18 05:59 100 MLS/HR Piperacillin Sod/ Tazobactam Sod 4.5 gm/Sodium Chloride 100 ml @ 200 mls/hr Q6HRS 01/12/18 00:00 01/13/18 07:57 DC 01/13/18 06:48 200 MLS/HR Potassium Acetate 30 meq/Magnesium Sulfate 25 meq/ Calcium Gluconate 10 meq/ Multivitamins 10 ml/Chromium/ Copper/Manganese/ Seleni/Zn 1 ml/ Thiamine HCl 100 mg/Folic Acid 1 mg/Total Parenteral Nutrition/Amino Acids/Dextrose/ Fat Emulsion Intravenous 3,000 ml @ 125 mls/hr TPN CONT 01/18/18 22:00 01/19/18 21:59 01/18/18 21:50 125 MLS/HR Potassium Acetate 30 meq/Potassium Phosphate 3.4 mmol/Magnesium Sulfate 15 meq/ Calcium Gluconate 10 meq/ Multivitamins 10 ml/Chromium/ Copper/Manganese/ Seleni/Zn 1 ml/ Thiamine HCl 100 mg/Folic Acid 1 mg/Total Parenteral Nutrition/Amino Acids/Dextrose 1,512 ml @ 63 mls/hr TPN CONT 01/16/18 22:00 01/17/18 21:59 DC 01/16/18 21:52 63 MLS/HR Potassium Acetate 30 meq/Potassium Phosphate 3.4 mmol/Magnesium Sulfate 18 meq/ Calcium Gluconate 10 meq/ Multivitamins 10 ml/Chromium/ Copper/Manganese/ Seleni/Zn 1 ml/ Thiamine HCl 100 mg/Folic Acid 1 mg/Total Parenteral Nutrition/Amino Acids/Dextrose 1,728 ml @ 72 mls/hr TPN CONT 01/17/18 22:00 01/18/18 21:59 DC 01/17/18 21:25 72 MLS/HR Propofol (Diprivan) 1,000 mg STK-MED ONCE 01/11/18 19:00 01/13/18 07:59 DC Sodium Acetate 75 meq/Potassium Chloride 30 meq/ Potassium Phosphate 6.8 mmol/Magnesium Sulfate 13 meq/ Calcium Gluconate 10 meq/ Multivitamins 10 ml/Chromium/ Copper/Manganese/ Seleni/Zn 1 ml/ Thiamine HCl 100 mg/Folic Acid 1 mg/Total Parenteral Nutrition/Amino Acids/Dextro... 1,512 ml @ 63 mls/hr TPN CONT 01/15/18 22:00 01/16/18 21:59 DC 01/15/18 22:07 63 MLS/HR Sodium Bicarbonate (Sodium Bicarb Adult 8.4% Syr) 100 meq 1X ONCE 01/14/18 11:30 01/14/18 11:31 DC 01/14/18 11:34 100 MEQ Sodium Chloride 1,000 ml @ 400 mls/hr Q2H30M PRN 01/15/18 09:06 01/15/18 09:32 DC Sodium Chloride 45 meq/Sodium Acetate 45 meq/ Potassium Chloride 30 meq/ Potassium Phosphate 6.8 mmol/Magnesium Sulfate 10 meq/ Calcium Gluconate 10 meq/ Multivitamins 10 ml/Chromium/ Copper/Manganese/ Seleni/Zn 1 ml/ Thiamine HCl 100 mg/Folic Acid 1 mg/Total Julieta... 1,512 ml @ 63 mls/hr TPN CONT 01/14/18 22:00 01/15/18 21:59 DC 01/14/18 21:37 63 MLS/HR Succinylcholine Chloride (Anectine) 200 mg STK-MED ONCE 01/11/18 19:00 01/13/18 07:59 DC Vancomycin HCl (Vanco Per Pharmacy) 1 each PRN DAILY PRN 01/11/18 20:15 01/12/18 13:14 DC 01/12/18 11:47 1 EACH Vancomycin HCl (Vancomycin Trough Level) 1 each 1X ONCE 01/12/18 20:30 01/12/18 20:30 DC Vancomycin HCl 1.5 gm/Sodium Chloride 500 ml @ 250 mls/hr Q12H 01/12/18 09:00 01/12/18 13:14 DC 01/12/18 08:44 250 MLS/HR Vancomycin HCl 2 gm/Sodium Chloride 500 ml @ 250 mls/hr 1X ONCE 01/11/18 21:00 01/11/18 22:59 DC 01/11/18 21:00 250 MLS/HR Vecuronium [place] 100 mg/ Dextrose 100 ml @ 7.89 mls/hr CONT PRN 01/17/18 19:45 Cancel Vecuronium [place] 100 mg/ Miscellaneous 100 ml @ 7.89 mls/hr CONT PRN 01/17/18 19:45 01/18/18 22:55 5.52 MLS/HR Vecuronium [place] (Norcuron Bolus) 6 mg PRN Q4HRS PRN 01/15/18 15:00 01/17/18 12:41 6 MG Lab Laboratory Tests Test 01/18/18 12:24 01/18/18 16:00 01/18/18 18:00 01/18/18 19:08 Glucose (Fingerstick) 402 mg/dL (70-99) 405 mg/dL (70-99) 355 mg/dL (70-99) 329 mg/dL (70-99) Test 01/18/18 20:09 01/18/18 21:10 01/18/18 22:25 01/18/18 23:33 Glucose (Fingerstick) 270 mg/dL (70-99) 261 mg/dL (70-99) 196 mg/dL (70-99) 174 mg/dL (70-99) Test 01/19/18 00:23 01/19/18 01:21 01/19/18 02:15 01/19/18 03:17 Glucose (Fingerstick) 153 mg/dL (70-99) 149 mg/dL (70-99) 141 mg/dL (70-99) 152 mg/dL (70-99) Test 01/19/18 04:19 01/19/18 05:21 01/19/18 05:24 01/19/18 06:16 Glucose (Fingerstick) 149 mg/dL (70-99) 164 mg/dL (70-99) 166 mg/dL (70-99) Sodium Level 157 mmol/L (136-145) Potassium Level 3.3 mmol/L (3.5-5.1) Chloride Level 118 mmol/L (98-107) Carbon Dioxide Level 23 mmol/L (21-32) Anion Gap 16 (6-14) Blood Urea Nitrogen 56 mg/dL (8-26) Creatinine 3.1 mg/dL (0.7-1.3) Estimated GFR (Cockcroft-Gault) 22.1 Glucose Level 191 mg/dL (70-99) Calcium Level 9.5 mg/dL (8.5-10.1) Phosphorus Level 4.9 mg/dL (2.6-4.7) Magnesium Level 2.2 mg/dL (1.8-2.4) Test 01/19/18 07:30 01/19/18 07:34 01/19/18 08:38 O2 Saturation 97 % (92-99) Arterial Blood pH 7.32 (7.35-7.45) Arterial Blood pCO2 at Patient Temp 44 mmHg (35-46) Arterial Blood pO2 at Patient Temp 94 mmHg (75-108) Arterial Blood HCO3 22 mmol/L (21-28) Arterial Blood Base Excess -4 mmol/L (-3-3) FiO2 40 Glucose (Fingerstick) 153 mg/dL (70-99) 139 mg/dL (70-99) Results All relevant outside records, renal labs, imaging studies, telemetry/EKG's were reviewed. RODRIGO KUMARI MD Jan 19, 2018 11:43
[2018-01-19] MEDS: DESMOPRESSIN 4 MCG/ML AMPUL. SQ SCH ×2 (12:26→21:00)
[2018-01-19] MEDS ORDERED: ELECTROLYTE (ICU) PROTOCOL. MC PRN (12:30)
[2018-01-19] MEDS: TPN PER PHARMACY MC PRN (12:39)
--- NOTE | 2018-01-19 14:06 | PDOC ---
PULMONARY PROGRESS NOTES Subjective remains on AC mode needs a lot of sedatives to control agitation/ needed to be on paralytic drip 2: 4 TOF Vitals Vital Signs Date Time Temp Pulse Resp B/P (MAP) Pulse Ox O2 Delivery O2 Flow Rate FiO2 01/19/18 13:00 105 26 207/96 (133) 100 Ventilator 01/19/18 12:00 98.5 98.5 Lungs: Other (decrease bs) Cardiovascular: S1 Abdomen: Soft Extremities: Other (1+edema) Skin: Warm Labs Laboratory Tests Test 01/17/18 17:21 01/17/18 23:49 01/18/18 05:00 01/18/18 05:40 Glucose (Fingerstick) 345 mg/dL (70-99) 312 mg/dL (70-99) 391 mg/dL (70-99) Sodium Level 151 mmol/L (136-145) Potassium Level 4.2 mmol/L (3.5-5.1) Chloride Level 113 mmol/L (98-107) Carbon Dioxide Level 25 mmol/L (21-32) Anion Gap 13 (6-14) Blood Urea Nitrogen 53 mg/dL (8-26) Creatinine 3.8 mg/dL (0.7-1.3) Estimated GFR (Cockcroft-Gault) 17.5 Glucose Level 446 mg/dL (70-99) Calcium Level 9.8 mg/dL (8.5-10.1) Phosphorus Level 4.4 mg/dL (2.6-4.7) Magnesium Level 1.5 mg/dL (1.8-2.4) Triglycerides Level 276 mg/dL (0-150) Lipase 667 U/L (73-393) Test 01/18/18 05:49 01/18/18 08:00 01/18/18 08:23 01/18/18 12:24 Ionized Calcium 1.18 mmol/L (1.13-1.32) O2 Saturation 94 % (92-99) Arterial Blood pH 7.35 (7.35-7.45) Arterial Blood pCO2 at Patient Temp 41 mmHg (35-46) Arterial Blood pO2 at Patient Temp 70 mmHg (75-108) Arterial Blood HCO3 22 mmol/L (21-28) Arterial Blood Base Excess -3 mmol/L (-3-3) FiO2 40 Glucose (Fingerstick) 428 mg/dL (70-99) 402 mg/dL (70-99) Test 01/18/18 16:00 01/18/18 18:00 01/18/18 19:08 01/18/18 20:09 Glucose (Fingerstick) 405 mg/dL (70-99) 355 mg/dL (70-99) 329 mg/dL (70-99) 270 mg/dL (70-99) Test 01/18/18 21:10 01/18/18 22:25 01/18/18 23:33 01/19/18 00:23 Glucose (Fingerstick) 261 mg/dL (70-99) 196 mg/dL (70-99) 174 mg/dL (70-99) 153 mg/dL (70-99) Test 01/19/18 01:21 01/19/18 02:15 01/19/18 03:17 01/19/18 04:19 Glucose (Fingerstick) 149 mg/dL (70-99) 141 mg/dL (70-99) 152 mg/dL (70-99) 149 mg/dL (70-99) Test 01/19/18 05:21 01/19/18 05:24 01/19/18 06:16 01/19/18 07:30 Sodium Level 157 mmol/L (136-145) Potassium Level 3.3 mmol/L (3.5-5.1) Chloride Level 118 mmol/L (98-107) Carbon Dioxide Level 23 mmol/L (21-32) Anion Gap 16 (6-14) Blood Urea Nitrogen 56 mg/dL (8-26) Creatinine 3.1 mg/dL (0.7-1.3) Estimated GFR (Cockcroft-Gault) 22.1 Glucose Level 191 mg/dL (70-99) Calcium Level 9.5 mg/dL (8.5-10.1) Phosphorus Level 4.9 mg/dL (2.6-4.7) Magnesium Level 2.2 mg/dL (1.8-2.4) Glucose (Fingerstick) 164 mg/dL (70-99) 166 mg/dL (70-99) O2 Saturation 97 % (92-99) Arterial Blood pH 7.32 (7.35-7.45) Arterial Blood pCO2 at Patient Temp 44 mmHg (35-46) Arterial Blood pO2 at Patient Temp 94 mmHg (75-108) Arterial Blood HCO3 22 mmol/L (21-28) Arterial Blood Base Excess -4 mmol/L (-3-3) FiO2 40 Test 01/19/18 07:34 01/19/18 08:38 01/19/18 09:33 01/19/18 10:36 Glucose (Fingerstick) 153 mg/dL (70-99) 139 mg/dL (70-99) 149 mg/dL (70-99) 151 mg/dL (70-99) Test 01/19/18 11:40 01/19/18 13:43 Glucose (Fingerstick) 142 mg/dL (70-99) 146 mg/dL (70-99) Laboratory Tests Test 01/18/18 16:00 01/18/18 18:00 01/18/18 19:08 01/18/18 20:09 Glucose (Fingerstick) 405 mg/dL (70-99) 355 mg/dL (70-99) 329 mg/dL (70-99) 270 mg/dL (70-99) Test 01/18/18 21:10 01/18/18 22:25 01/18/18 23:33 01/19/18 00:23 Glucose (Fingerstick) 261 mg/dL (70-99) 196 mg/dL (70-99) 174 mg/dL (70-99) 153 mg/dL (70-99) Test 01/19/18 01:21 01/19/18 02:15 01/19/18 03:17 01/19/18 04:19 Glucose (Fingerstick) 149 mg/dL (70-99) 141 mg/dL (70-99) 152 mg/dL (70-99) 149 mg/dL (70-99) Test 01/19/18 05:21 01/19/18 05:24 01/19/18 06:16 01/19/18 07:30 Sodium Level 157 mmol/L (136-145) Potassium Level 3.3 mmol/L (3.5-5.1) Chloride Level 118 mmol/L (98-107) Carbon Dioxide Level 23 mmol/L (21-32) Anion Gap 16 (6-14) Blood Urea Nitrogen 56 mg/dL (8-26) Creatinine 3.1 mg/dL (0.7-1.3) Estimated GFR (Cockcroft-Gault) 22.1 Glucose Level 191 mg/dL (70-99) Calcium Level 9.5 mg/dL (8.5-10.1) Phosphorus Level 4.9 mg/dL (2.6-4.7) Magnesium Level 2.2 mg/dL (1.8-2.4) Glucose (Fingerstick) 164 mg/dL (70-99) 166 mg/dL (70-99) O2 Saturation 97 % (92-99) Arterial Blood pH 7.32 (7.35-7.45) Arterial Blood pCO2 at Patient Temp 44 mmHg (35-46) Arterial Blood pO2 at Patient Temp 94 mmHg (75-108) Arterial Blood HCO3 22 mmol/L (21-28) Arterial Blood Base Excess -4 mmol/L (-3-3) FiO2 40 Test 01/19/18 07:34 01/19/18 08:38 01/19/18 09:33 01/19/18 10:36 Glucose (Fingerstick) 153 mg/dL (70-99) 139 mg/dL (70-99) 149 mg/dL (70-99) 151 mg/dL (70-99) Test 01/19/18 11:40 01/19/18 13:43 Glucose (Fingerstick) 142 mg/dL (70-99) 146 mg/dL (70-99) Medications Active Scripts Medications Dose Route/Sig Max Daily Dose Days Date Category [[facility] botanicals] 01/12/18 Reported Maxitrol Eye Drops (Brandon/Polymyx B Sulf/Dexameth) 5 Ml Drops.susp 1 Drop OD QID 01/12/18 Reported Multivitamins (Multivitamin) 1 Each Tablet 1 Tab PO DAILY 01/12/18 Reported Magnesium (Magnesium Oxide) 400 Mg Capsule 1 Cap PO DAILY 01/12/18 Reported Calcium (Calcium Carbonate) 500 Mg Tab.chew 500 Mg PO 01/12/18 Reported Lansoprazole 30 Mg Capsule.dr 1 Cap PO DAILY 01/12/18 Reported Losartan Potassium 25 Mg Tablet 25 Mg PO DAILY 01/12/18 Reported Tizanidine Hcl 4 Mg Tablet 1 Tab PO TID 01/12/18 Reported Tramadol Hcl 50 Mg Tablet 50 Mg PO DAILY PRN 01/12/18 Reported Bystolic (Nebivolol Hcl) 20 Mg Tablet 20 Mg PO DAILY 01/12/18 Reported Cymbalta (Duloxetine Hcl) 20 Mg Capsule.dr 1 Cap PO DAILY 01/12/18 Reported Valacyclovir (Valacyclovir Hcl) 1,000 Mg Tablet 1 Tab PO DAILY 01/12/18 Reported Ibuprofen 400 Mg Tablet 400 Mg PO PRN Q6HRS PRN 09/21/15 Reported Bystolic (Nebivolol) 10 Mg Tablet 20 Mg PO DAILY 09/21/15 Reported Amlodipine Besylate 10 Mg Tablet 10 Mg PO DAILY 09/21/15 Reported Comments Impression . 1. Acute respiratory failure./ multi-factorial 2. severe encephalopathy/ delirium 3. Sepsis . source pancreatitis 4. alcohol withdrawal /sepsis/ needing multiple sedatives and now paralytics/ ativan drip, off versed drip 5. alcoholic pancreatitis, increasing lipase 6. No obvious CHF/ normal EF 7. History of alcohol abuse. Level neg. Positive for [place] 8. Obesity? obstructive sleep apnea-hypopnea syndrome. 9. DENISHA,, better 10. Combined met/resp acidosis. improved 11. staph bacteremia Plan . 1. Titrate FiO2 to keep O2 saturation 94%.AC mode. not ready for weaning/ needing heavy amounts of sedation/ paralytics. d/w RN will dc paralytic drip today and use PRN 2. change vent setting per ABG. 3. bronchodilator. 4. repeat lipase increased. Await GI input 5. ID rec/ follow final BC 6. Renal rec 7. Pepcid for stress ulcer prophylaxis. 8. Lovenox 9. follow amylase/ lipase 10. Control blood sugar. 13. The findings and recommendations were discussed with RN./ RT AJ FINK MD Jan 19, 2018 14:06
[2018-01-19] MEDS ORDERED: POTASSIUM CHLORIDE 20MEQ 50 ML IV SCH ×2 (17:15→18:00)
[2018-01-19] MEDS: POTASSIUM CHLORIDE 20MEQ 50 ML IV SCH ×2 (17:35→19:24)
[2018-01-19] MEDS ORDERED: DEXTROSE 70% IV SCH ×10 (22:00)
[2018-01-19] MEDS ORDERED: TOTAL PARENTERAL NUTRITION IV SCH ×10 (22:00)
[2018-01-19] MEDS ORDERED: [UNRECOGNIZED DRUG - OTHER] IV SCH ×10 (22:00)
[2018-01-19] MEDS ORDERED: AMINO ACIDS IV SCH ×10 (22:00)
[2018-01-20] VITALS (27 sets, daily range): BP systolic 84–182; BP diastolic 47–97
[2018-01-20] MEDS: DEXMEDETOMIDINE 200 MCG in IV NORMAL SALINE 50ML 48 ML IV PRN ×12 (01:28→23:49)
[2018-01-20] MEDS: IV DEXTROSE 5% 1,000 ML IV SCH (04:25)
[2018-01-20] MEDS: INSULIN REGULAR VIAL 150 UNIT in 0.9 % SODIUM CHLORIDE 150ML 150 ML IV PRN (05:10)
[2018-01-20] MEDS: HEPARIN for SUB-Q USE 5,000 UNIT/ML VIAL. SQ SCH ×3 (05:35→21:55)
[2018-01-20] MEDS: LORazepam 100 MG in IV NORMAL SALINE 100ML 50 ML IV PRN (05:56)
[2018-01-20] MEDS: INSULIN LISPRO 300 UNITS/3 ML INSULN.PEN. SQ SCH ×4 (06:00→23:37)
[2018-01-20 06:06] LABS: CALCIUM 9.4 mg/dL (8.5-10.1); CREATININE 2.7 mg/dL (0.7-1.3); GFR 25.9; POTASSIUM 4.1 mmol/L (3.5-5.1)
[2018-01-20 06:16] LABS: PROTHROMBIN TIME PATIENT 13.9 SEC (11.7-14.0)
--- NOTE | 2018-01-20 07:30 | PDOC ---
PROGRESS NOTES Chief Complaint Chief Complaint Acute respiratory failure. ETOH intoxication versus dependence, not protecting airway hence intubated at the emergency room LLL pneumonia. Sepsis - LLL pneumonia Severe agitation, could be secondary to alcohol withdrawal versus sepsis versus others. Pancreatitis - Hyperglycemia, with HYPERTRIGLYCERIDEMIA Elevated BNP and troponin elevation History of alcohol abuse. Obesity BMI 39 - poss obstructive sleep apnea-hypopnea syndrome. History of Present Illness History of Present Illness Admitted with hallucinations and combative, was intubated soon after admission, Ketonuria on UA. Intubated sedated, father states this is likely polysubstance abuse withdrawal. Found with pancreatitis, ARF, agitation Overnight, did have some vent dysynchrony required 1x dose of vecuronium. No further Fevers (Last was 101.4F on 01/17). Had a very large BM overnight. Creatinine 2.4 this morning but making significant urine, sodium 153. On insulin GTT with better glycemic control. Off cardene drip with sudden BP drop. DDAVP x1 01/18/18 per nephro. Stable on TPN at 125cc/hr with addition of D5W and free water 200cc. A/P: Acute respiratory failure - 22/550/50% peep 7, PNA in LLL on CXR, on zyvox. No further fevers since daptomycin addition Hypernatremia - possibly 2/2 TF. Sodium 153, at least 6L Free water deficit, NPO for pancreatitis, will defer to nephro Etoh intoxication versus dependence, not protecting airway hence intubated at the emergency room - no fevers since 01/17/18, could consider wean if he would comply with sedation reduction LLL pneumonia - changed to zyvox + daptomycin with improvement Sepsis - LLL pneumonia - cont fluids, will change to 1/2NSS for hyperglycemia. Daptomycin helping Acute renal failure - likely from sepsis, hypotension, ATN. Nephrology following , making urine. Will cont fluids, TPN Severe agitation, could be secondary to alcohol withdrawal versus sepsis versus others. Did paralyze 01/13/18 overnight and 01/15/18 overnight and for 24 hours on GTT 01/18/18, x1 again 01/19 at night Pancreatitis - with HYPERTRIGLYCERIDEMIA - insulin GTT. TPN with his his elevated lipase. Seen by GI, improving, had a BM Elevated BNP and troponin elevation - likely from sepsis - cardiology seen History of alcohol abuse - on precedex, versed, fentanyl for likely withdrawal Obesity BMI 39 - poss obstructive sleep apnea-hypopnea syndrome. Heparin SQ Already on PPI IV We will need alcohol rehabilitation referrals once extubated Supportive care Further conditions pending course. Met with his father, he is stable He continues with combative behavior, difficult disposition, he is very ill Vitals Vitals Vital Signs Date Time Temp Pulse Resp B/P (MAP) Pulse Ox O2 Delivery O2 Flow Rate FiO2 01/20/18 06:00 76 26 97/57 (70) 99 Ventilator 01/20/18 04:00 99.6 99.6 Physical Exam Physical Exam GENERAL: sedated and intubated. HEENT: Pupils small. ETT and NGT in place. LUNGS: Diminished aeration in the bases. HEART: S1 S2 Regular rhythm. ABDOMEN: Obese. BS active, so grimace or guarding to palpation. GENITOURINARY: Indwelling Cook in place. EXTREMITIES: 1 plus edema or cyanosis. SKIN: He has tattoos. warm without rash NEUROLOGIC: Unresponsive/sedated. RIJ - clean. General: Other (sedated on a ventilator.) Heart: Regular rate Lungs: Other (decrease bs) Abdomen: Normal bowel sounds Extremities: No clubbing, No cyanosis, No edema, Normal pulses Skin: No rashes, No breakdown Labs LABS Laboratory Tests Test 01/19/18 07:34 01/19/18 08:38 01/19/18 09:33 01/19/18 10:36 Glucose (Fingerstick) 153 mg/dL (70-99) 139 mg/dL (70-99) 149 mg/dL (70-99) 151 mg/dL (70-99) Test 01/19/18 11:40 01/19/18 13:43 01/19/18 15:46 01/19/18 17:51 Glucose (Fingerstick) 142 mg/dL (70-99) 146 mg/dL (70-99) 156 mg/dL (70-99) 144 mg/dL (70-99) Test 01/19/18 20:01 01/19/18 20:40 01/19/18 21:56 01/19/18 23:57 Glucose (Fingerstick) 141 mg/dL (70-99) 142 mg/dL (70-99) 160 mg/dL (70-99) Sodium Level 154 mmol/L (136-145) Test 01/20/18 01:55 01/20/18 02:55 01/20/18 03:56 01/20/18 05:03 Glucose (Fingerstick) 121 mg/dL (70-99) 133 mg/dL (70-99) 121 mg/dL (70-99) 123 mg/dL (70-99) Test 01/20/18 05:25 01/20/18 06:07 01/20/18 07:18 Prothrombin Time 13.9 SEC (11.7-14.0) Prothromb Time International Ratio 1.1 (0.8-1.1) Activated Partial Thromboplast Time 32 SEC (24-38) Sodium Level 153 mmol/L (136-145) Potassium Level 4.1 mmol/L (3.5-5.1) Chloride Level 117 mmol/L (98-107) Carbon Dioxide Level 25 mmol/L (21-32) Anion Gap 11 (6-14) Blood Urea Nitrogen 55 mg/dL (8-26) Creatinine 2.7 mg/dL (0.7-1.3) Estimated GFR (Cockcroft-Gault) 25.9 Glucose Level 168 mg/dL (70-99) Calcium Level 9.4 mg/dL (8.5-10.1) Glucose (Fingerstick) 137 mg/dL (70-99) 138 mg/dL (70-99) Assessment and Plan Assessmemt and Plan Problems Medical Problems: (1) Diabetic keto-acidosis Status: Acute (2) Hyperglycemia due to type 2 diabetes mellitus Status: Acute (3) Metabolic acidemia Status: Acute (4) Metabolic encephalopathy Status: Acute Comment Review of Relevant I have reviewed the following items franklyn (where applicable) has been applied. Labs Laboratory Tests Test 01/18/18 08:00 01/18/18 08:23 01/18/18 12:24 01/18/18 16:00 O2 Saturation 94 % (92-99) Arterial Blood pH 7.35 (7.35-7.45) Arterial Blood pCO2 at Patient Temp 41 mmHg (35-46) Arterial Blood pO2 at Patient Temp 70 mmHg (75-108) Arterial Blood HCO3 22 mmol/L (21-28) Arterial Blood Base Excess -3 mmol/L (-3-3) FiO2 40 Glucose (Fingerstick) 428 mg/dL (70-99) 402 mg/dL (70-99) 405 mg/dL (70-99) Test 01/18/18 18:00 01/18/18 19:08 01/18/18 20:09 01/18/18 21:10 Glucose (Fingerstick) 355 mg/dL (70-99) 329 mg/dL (70-99) 270 mg/dL (70-99) 261 mg/dL (70-99) Test 01/18/18 22:25 01/18/18 23:33 01/19/18 00:23 01/19/18 01:21 Glucose (Fingerstick) 196 mg/dL (70-99) 174 mg/dL (70-99) 153 mg/dL (70-99) 149 mg/dL (70-99) Test 01/19/18 02:15 01/19/18 03:17 01/19/18 04:19 01/19/18 05:21 Glucose (Fingerstick) 141 mg/dL (70-99) 152 mg/dL (70-99) 149 mg/dL (70-99) Sodium Level 157 mmol/L (136-145) Potassium Level 3.3 mmol/L (3.5-5.1) Chloride Level 118 mmol/L (98-107) Carbon Dioxide Level 23 mmol/L (21-32) Anion Gap 16 (6-14) Blood Urea Nitrogen 56 mg/dL (8-26) Creatinine 3.1 mg/dL (0.7-1.3) Estimated GFR (Cockcroft-Gault) 22.1 Glucose Level 191 mg/dL (70-99) Calcium Level 9.5 mg/dL (8.5-10.1) Phosphorus Level 4.9 mg/dL (2.6-4.7) Magnesium Level 2.2 mg/dL (1.8-2.4) Test 01/19/18 05:24 01/19/18 06:16 01/19/18 07:30 01/19/18 07:34 Glucose (Fingerstick) 164 mg/dL (70-99) 166 mg/dL (70-99) 153 mg/dL (70-99) O2 Saturation 97 % (92-99) Arterial Blood pH 7.32 (7.35-7.45) Arterial Blood pCO2 at Patient Temp 44 mmHg (35-46) Arterial Blood pO2 at Patient Temp 94 mmHg (75-108) Arterial Blood HCO3 22 mmol/L (21-28) Arterial Blood Base Excess -4 mmol/L (-3-3) FiO2 40 Test 01/19/18 08:38 01/19/18 09:33 01/19/18 10:36 01/19/18 11:40 Glucose (Fingerstick) 139 mg/dL (70-99) 149 mg/dL (70-99) 151 mg/dL (70-99) 142 mg/dL (70-99) Test 01/19/18 13:43 01/19/18 15:46 01/19/18 17:51 01/19/18 20:01 Glucose (Fingerstick) 146 mg/dL (70-99) 156 mg/dL (70-99) 144 mg/dL (70-99) 141 mg/dL (70-99) Test 01/19/18 20:40 01/19/18 21:56 01/19/18 23:57 01/20/18 01:55 Sodium Level 154 mmol/L (136-145) Glucose (Fingerstick) 142 mg/dL (70-99) 160 mg/dL (70-99) 121 mg/dL (70-99) Test 01/20/18 02:55 01/20/18 03:56 01/20/18 05:03 01/20/18 05:25 Glucose (Fingerstick) 133 mg/dL (70-99) 121 mg/dL (70-99) 123 mg/dL (70-99) Prothrombin Time 13.9 SEC (11.7-14.0) Prothromb Time International Ratio 1.1 (0.8-1.1) Activated Partial Thromboplast Time 32 SEC (24-38) Sodium Level 153 mmol/L (136-145) Potassium Level 4.1 mmol/L (3.5-5.1) Chloride Level 117 mmol/L (98-107) Carbon Dioxide Level 25 mmol/L (21-32) Anion Gap 11 (6-14) Blood Urea Nitrogen 55 mg/dL (8-26) Creatinine 2.7 mg/dL (0.7-1.3) Estimated GFR (Cockcroft-Gault) 25.9 Glucose Level 168 mg/dL (70-99) Calcium Level 9.4 mg/dL (8.5-10.1) Test 01/20/18 06:07 01/20/18 07:18 Glucose (Fingerstick) 137 mg/dL (70-99) 138 mg/dL (70-99) Laboratory Tests Test 01/19/18 07:34 01/19/18 08:38 01/19/18 09:33 01/19/18 10:36 Glucose (Fingerstick) 153 mg/dL (70-99) 139 mg/dL (70-99) 149 mg/dL (70-99) 151 mg/dL (70-99) Test 01/19/18 11:40 01/19/18 13:43 01/19/18 15:46 01/19/18 17:51 Glucose (Fingerstick) 142 mg/dL (70-99) 146 mg/dL (70-99) 156 mg/dL (70-99) 144 mg/dL (70-99) Test 01/19/18 20:01 01/19/18 20:40 01/19/18 21:56 01/19/18 23:57 Glucose (Fingerstick) 141 mg/dL (70-99) 142 mg/dL (70-99) 160 mg/dL (70-99) Sodium Level 154 mmol/L (136-145) Test 01/20/18 01:55 01/20/18 02:55 01/20/18 03:56 01/20/18 05:03 Glucose (Fingerstick) 121 mg/dL (70-99) 133 mg/dL (70-99) 121 mg/dL (70-99) 123 mg/dL (70-99) Test 01/20/18 05:25 01/20/18 06:07 01/20/18 07:18 Prothrombin Time 13.9 SEC (11.7-14.0) Prothromb Time International Ratio 1.1 (0.8-1.1) Activated Partial Thromboplast Time 32 SEC (24-38) Sodium Level 153 mmol/L (136-145) Potassium Level 4.1 mmol/L (3.5-5.1) Chloride Level 117 mmol/L (98-107) Carbon Dioxide Level 25 mmol/L (21-32) Anion Gap 11 (6-14) Blood Urea Nitrogen 55 mg/dL (8-26) Creatinine 2.7 mg/dL (0.7-1.3) Estimated GFR (Cockcroft-Gault) 25.9 Glucose Level 168 mg/dL (70-99) Calcium Level 9.4 mg/dL (8.5-10.1) Glucose (Fingerstick) 137 mg/dL (70-99) 138 mg/dL (70-99) Microbiology 01/18/18 Blood Culture - Preliminary, Resulted NO GROWTH AFTER 1 DAY 01/13/18 Throat Culture - Final, Complete 01/13/18 - Final, Complete Medications Current Medications Lorazepam (Ativan) 1 mg 1X ONCE IV Last administered on 01/11/18at 12:25; Start 01/11/18 at 12:30; Stop 01/11/18 at 12:31; Status DC Lorazepam (Ativan) 2 mg 1X ONCE IV Last administered on 01/11/18at 13:03; Start 01/11/18 at 12:45; Stop 01/11/18 at 12:46; Status DC Dextrose/Sodium Chloride 1,000 ml @ 0 mls/hr 1X ONCE IV ; Start 01/11/18 at 13:00; Stop 01/11/18 at 13:16; Status DC Sodium Chloride 1,000 ml @ 1,000 mls/hr 1X ONCE IV Last administered on 01/11at 13:41; Start 01/11/18 at 13:30; Stop 01/11/18 at 14:29; Status DC Sodium Chloride 1,000 ml @ 1,000 mls/hr 1X ONCE IV Last administered on 01/11at 13:42; Start 01/11/18 at 13:30; Stop 01/11/18 at 14:29; Status DC Lorazepam (Ativan) 1 mg 1X ONCE IV Last administered on 01/11/18at 15:08; Start 01/11/18 at 13:30; Stop 01/11/18 at 13:31; Status DC Lorazepam (Ativan) 1 mg 1X ONCE IV Last administered on 01/11/18at 13:43; Start 01/11/18 at 13:30; Stop 01/11/18 at 13:33; Status DC Aspirin (Children'S Aspirin) 324 mg 1X ONCE PO Last administered on at 14:02; Start 01/11/18 at 13:45; Stop 01/11/18 at 13:46; Status DC Haloperidol Lactate (Haldol Inj) 5 mg PRN Q6HRS PRN IVP SEVERE AGITATION Last administered on 01/16/18at 21:24; Start 01/11/18 at 16:15 Lorazepam (Ativan) 4 mg PRN Q4HRS PRN IV ANXIETY / AGITATION Last administered on 01/16/18at 09:32; Start 01/11/18 at 16:15 Multivitamins 10 ml/Thiamine HCl 100 mg/Folic Acid 1 mg/Sodium Chloride 1,011.2 ml @ 125 mls/ hr DAILY IV Last administered on 01/14/18at 08:19; Start at 17:00; Stop 01/14/18 at 21:59; Status DC Dexmedetomidine HCl 200 mcg/ Sodium Chloride 50 ml @ 0 mls/hr CONT PRN IV PER PROTOCOL Last administered on 01/11/18at 17:00; Start 01/11/18 at 16:45; Stop 01/11/18 at 18:38; Status DC Sodium Chloride 500 ml @ 500 mls/hr 1X PRN PRN IV SEE COMMENTS; Start at 16:45 Atropine Sulfate (ATROPINE 0.5mg SYRINGE) 0.5 mg PRN Q5MIN PRN IV SEE COMMENTS ; Start 01/11/18 at 16:45 Lorazepam (Ativan) 4 mg PRN Q1HR PRN PO For CIWA 8-14; Start 01/11/18 at 18:15 Lorazepam (Ativan) 8 mg PRN Q1HR PRN PO For CIWA 15 or greater; Start at 18:15 Lorazepam (Ativan) 2 mg PRN Q1HR PRN IV For CIWA 8-14; Start 01/11/18 at 18:15 Lorazepam (Ativan) 4 mg PRN Q1HR PRN IV For CIWA 15 or greater Last administered on 01/15/18at 23:04; Start 01/11/18 at 18:15 Diphenhydramine HCl (Benadryl) 25 mg PRN Q15MIN PRN IVP EPS symptoms 2'Haldol admin; Start 01/11/18 at 18:15 Olanzapine (ZyPREXA IM) 10 mg 1X ONCE IM Last administered on 01/11/18at 18:42 ; Start 01/11/18 at 18:45; Stop 01/11/18 at 18:46; Status DC Dexmedetomidine HCl 200 mcg/ Sodium Chloride 50 ml @ 7 mls/hr CONT PRN IV PER PROTOCOL; Start 01/11/18 at 18:38; Stop 01/11/18 at 21:19; Status DC Propofol 100 ml @ As Directed STK-MED ONCE IV ; Start 01/11/18 at 18:43; Stop 01/11/18 at 18:44; Status DC Succinylcholine Chloride (Anectine) 200 mg STK-MED ONCE .ROUTE ; Start at 18:44; Stop 01/11/18 at 18:45; Status DC Fentanyl Citrate 30 ml @ 2.5 mls/hr CONT PRN IV PER PROTOCOL Last administered on 01/20/18at 02:09; Start 01/11/18 at 19:00 Propofol 100 ml @ 4.2 mls/hr CONT PRN IV PER PROTOCOL; Start 01/11/18 at 18: 45; Status Cancel Fentanyl Citrate (Fentanyl 2ml Vial) 25 mcg PRN Q1HR PRN IV SEE COMMENTS.; Start 01/11/18 at 18:45 Fentanyl Citrate (Fentanyl 2ml Vial) 50 mcg PRN Q1HR PRN IV SEE COMMENTS. Last administered on 01/11/18at 20:21; Start 01/11/18 at 18:45 Morphine Sulfate (Morphine Sulfate) 2 mg PRN Q1HR PRN IV SEE COMMENTS.; Start 01/11/18 at 18:45 Morphine Sulfate (Morphine Sulfate) 4 mg PRN Q1HR PRN IV SEE COMMENTS.; Start 01/11/18 at 18:45 Hydromorphone HCl (Dilaudid) 0.2 mg PRN Q1HR PRN IV SEE COMMENTS.; Start 01/11 at 18:45 Hydromorphone HCl (Dilaudid) 0.4 mg PRN Q1HR PRN IV SEE COMMENTS.; Start 01/11 at 18:45 Morphine Sulfate (Morphine Sulfate) 2 mg PRN Q1HR PRN IV ; Start 01/11/18 at 18:45; Status UNV Morphine Sulfate (Morphine Sulfate) 4 mg PRN Q1HR PRN IV ; Start 01/11/18 at 18:45; Status UNV Midazolam HCl 100 ml @ 1 mls/hr CONT PRN IV PER PROTOCOL Last administered on 01/16/18at 04:52; Start 01/11/18 at 18:45; Stop 01/16/18 at 09:52; Status DC Epinephrine HCl (EPINEPHrine SYRINGE) 1 mg STK-MED ONCE .ROUTE ; Start at 18:56; Stop 01/11/18 at 18:57; Status DC Propofol 100 ml @ 2.103 mls/ hr CONT PRN IV SEE I/O RECORD Last administered on 01/11/18at 20:23; Start 01/11/18 at 19:00 Vecuronium Verbena (Norcuron Bolus) 10 mg STK-MED ONCE IV ; Start 01/11/18 at 19:02; Stop 01/11/18 at 19:03; Status DC Vancomycin HCl (Vanco Per Pharmacy) 1 each PRN DAILY PRN MC SEE COMMENTS Last administered on 01/12/18at 11:47; Start 01/11/18 at 20:15; Stop 01/12/18 at 13 :14; Status DC Piperacillin Sod/ Tazobactam Sod (Zosyn Per Pharmacy) 1 each PRN DAILY PRN MC SEE COMMENTS; Start 01/11/18 at 20:15; Stop 01/13/18 at 08:00; Status DC Piperacillin Sod/ Tazobactam Sod 4.5 gm/Sodium Chloride 100 ml @ 200 mls/hr Q6HRS IV Last administered on 01/13/18at 06:48; Start 01/12/18 at 00:00; Stop 01/13/18 at 07:57; Status DC Vancomycin HCl 2 gm/Sodium Chloride 500 ml @ 250 mls/hr 1X ONCE IV Last administered on 01/11/18at 21:00; Start 01/11/18 at 21:00; Stop 01/11/18 at 22 :59; Status DC Insulin Human Lispro (HumaLOG) 0-7 UNITS Q6HRS SQ Last administered on at 23:59; Start 01/12/18 at 00:00 Dextrose (Dextrose 50%-Water Syringe) 12.5 gm PRN Q15MIN PRN IV SEE COMMENTS; Start 01/11/18 at 21:00 Sodium Chloride 1,000 ml @ 100 mls/hr Q10H IV Last administered on 01/16/18at 03:59; Start 01/11/18 at 21:00; Stop 01/16/18 at 09:47; Status DC Dexmedetomidine HCl 200 mcg/ Sodium Chloride 50 ml @ 0 mls/hr CONT PRN IV PER PROTOCOL Last administered on 01/20/18at 05:56; Start 01/11/18 at 21:00 Acetaminophen (Tylenol) 650 mg PRN Q6HRS PRN PEG MILD PAIN / TEMP Last administered on 01/17/18at 15:52; Start 01/11/18 at 21:30 Magnesium Sulfate 50 ml @ 25 mls/hr 1X ONCE IV Last administered on at 01:27; Start 01/12/18 at 01:00; Stop 01/12/18 at 02:59; Status DC Sodium Chloride 1,000 ml @ 1,000 mls/hr 1X ONCE IV Last administered on 01/12at 01:00; Start 01/12/18 at 04:30; Stop 01/12/18 at 05:29; Status DC Vancomycin HCl 1.5 gm/Sodium Chloride 500 ml @ 250 mls/hr Q12H IV Last administered on 01/12/18at 08:44; Start 01/12/18 at 09:00; Stop 01/12/18 at 13 :14; Status DC Vancomycin HCl (Vancomycin Trough Level) 1 each 1X ONCE MC ; Start 01/12/18 at 20:30; Stop 01/12/18 at 20:30; Status DC Sodium Chloride 500 ml @ 500 mls/hr 1X ONCE IV Last administered on at 07:26; Start 01/12/18 at 07:00; Stop 01/12/18 at 07:59; Status DC Famotidine (Pepcid Vial) 20 mg BID IVP Last administered on 01/13/18at 20:49; Start 01/12/18 at 09:00; Stop 01/14/18 at 09:40; Status DC Albuterol/ Ipratropium (Duoneb) 3 ml RTQID NEB Last administered on 01/19/18at 19:57; Start 01/12/18 at 08:00 Heparin Sodium (Porcine) (Heparin Sodium) 5,000 unit Q8HRS SQ Last administered on 01/19/18at 22:01; Start 01/12/18 at 14:00 Gemfibrozil (Lopid) 600 mg BIDBFRMEAL PO Last administered on 01/19/18at 17:35 ; Start 01/12/18 at 10:00 Linezolid/Dextrose 300 ml @ 300 mls/hr Q12HR IV Last administered on at 08:39; Start 01/12/18 at 21:00; Stop 01/15/18 at 12:06; Status DC Vecuronium Verbena (Norcuron Bolus) 10 mg STK-MED ONCE IV ; Start 01/11/18 at 19:00; Stop 01/13/18 at 07:59; Status DC Succinylcholine Chloride (Anectine) 200 mg STK-MED ONCE .ROUTE ; Start at 19:00; Stop 01/13/18 at 07:59; Status DC Propofol (Diprivan) 1,000 mg STK-MED ONCE IV ; Start 01/11/18 at 19:00; Stop 01/13/18 at 07:59; Status DC Epinephrine HCl (EPINEPHrine SYRINGE) 1 mg STK-MED ONCE .ROUTE ; Start at 19:00; Stop 01/13/18 at 07:59; Status DC Piperacillin Sod/ Tazobactam Sod 2.25 gm/Sodium Chloride 50 ml @ 100 mls/hr Q8HRS IV Last administered on 01/16/18at 05:59; Start 01/13/18 at 14:00; Stop 01/16/18 at 07:31; Status DC Doxycycline Hyclate 100 mg/ Dextrose 100 ml @ 50 mls/hr Q12HR IV Last administered on 01/19/18at 20:49; Start 01/13/18 at 09:00 Sodium Bicarbonate (Sodium Bicarb Adult 8.4% Syr) 100 meq 1X ONCE IV Last administered on 01/13/18at 09:12; Start 01/13/18 at 09:15; Stop 01/13/18 at 09 :16; Status DC Sodium Chloride 1,000 ml @ 1,000 mls/hr Q1H IV ; Start 01/13/18 at 12:30; Status Cancel Sodium Chloride 1,000 ml @ 1,000 mls/hr 1X ONCE IV Last administered on 01/13at 12:15; Start 01/13/18 at 12:15; Stop 01/13/18 at 13:14; Status DC Vecuronium Verbena (Norcuron Bolus) 6 mg PRN Q6HRS PRN IV VENT ASYNCHRONY Last administered on 01/15/18at 10:23; Start 01/13/18 at 12:30; Stop 01/15/18 at 14 :51; Status DC Info (Tpn Per Pharmacy) 1 each PRN DAILY PRN MC SEE COMMENTS Last administered on 01/19/18at 12:39; Start 01/14/18 at 09:45 Famotidine (Pepcid Vial) 20 mg DAILY IVP Last administered on 01/19/18at 08:24 ; Start 01/15/18 at 09:00 Sodium Bicarbonate (Sodium Bicarb Adult 8.4% Syr) 50 meq STK-MED ONCE .ROUTE ; Start 01/14/18 at 11:12; Stop 01/14/18 at 11:13; Status DC Labetalol HCl (Normodyne Iv Push) 10 mg PRN Q4HRS PRN IVP HYPERTENSION, SEE COMMENTS Last administered on 01/17/18at 10:39; Start 01/14/18 at 11:30 Sodium Bicarbonate (Sodium Bicarb Adult 8.4% Syr) 100 meq 1X ONCE IV Last administered on 01/14/18at 11:34; Start 01/14/18 at 11:30; Stop 01/14/18 at 11 :31; Status DC Sodium Chloride 45 meq/Sodium Acetate 45 meq/ Potassium Chloride 30 meq/ Potassium Phosphate 6.8 mmol/Magnesium Sulfate 10 meq/ Calcium Gluconate 10 meq / Multivitamins 10 ml/Chromium/ Copper/Manganese/ Seleni/Zn 1 ml/ Thiamine HCl 100 mg/Folic Acid 1 mg/Total Julieta... 1,512 ml @ 63 mls/hr TPN CONT IV Last administered on 01/14/18at 21:37; Start 01/14/18 at 22:00; Stop 01/15/18 at 21:59; Status DC Labetalol HCl (Normodyne Iv Push) 20 mg PRN Q2HR PRN IVP HYPERTENSION, SEE COMMENTS Last administered on 01/16/18at 13:57; Start 01/14/18 at 15:30 Multivitamins 10 ml/Thiamine HCl 100 mg/Folic Acid 1 mg/Sodium Chloride 1,011.2 ml @ 1,000.088 mls/hr 1X ONCE IV ; Start 01/15/18 at 08:15; Stop 01/15/18 at 09:15; Status UNV Sodium Chloride 1,000 ml @ 1,000 mls/hr Q1H PRN IV hypotension; Start at 09:06; Stop 01/15/18 at 09:32; Status DC Albumin Human 200 ml @ 200 mls/hr 1X ONCE IV ; Start 01/15/18 at 09:15; Stop 01/15/18 at 09:32; Status DC Acetaminophen (Tylenol) 500 mg 1X PRN PRN PO MILD PAIN / TEMP; Start 01/15/18 at 09:15; Stop 01/15/18 at 09:32; Status DC Diphenhydramine HCl (Benadryl) 25 mg 1X PRN PRN IV ITCHING; Start 01/15/18 at 09:15; Stop 01/15/18 at 09:32; Status DC Pharmacy Consult (C.diff Med Screen By Rx) 1 each PRN 1X PRN MC SEE COMMENTS; Start 01/15/18 at 09:30; Status Cancel Sodium Chloride 1,000 ml @ 400 mls/hr Q2H30M PRN IV PATENCY; Start 01/15/18 at 09:06; Stop 01/15/18 at 09:32; Status DC Info (PHARMACY MONITORING -- do not chart) 1 each PRN DAILY PRN MC SEE COMMENTS ; Start 01/15/18 at 09:15 Sodium Acetate 75 meq/Potassium Chloride 30 meq/ Potassium Phosphate 6.8 mmol/ Magnesium Sulfate 13 meq/ Calcium Gluconate 10 meq/ Multivitamins 10 ml/Chromium / Copper/Manganese/ Seleni/Zn 1 ml/ Thiamine HCl 100 mg/Folic Acid 1 mg/Total Parenteral Nutrition/Amino Acids/Dextro... 1,492 ml @ 62.167 mls/ hr TPN CONT IV ; Start 01/15/18 at 22:00; Stop 01/15/18 at 22:00; Status DC Sodium Acetate 75 meq/Potassium Chloride 30 meq/ Potassium Phosphate 6.8 mmol/ Magnesium Sulfate 13 meq/ Calcium Gluconate 10 meq/ Multivitamins 10 ml/Chromium / Copper/Manganese/ Seleni/Zn 1 ml/ Thiamine HCl 100 mg/Folic Acid 1 mg/Total Parenteral Nutrition/Amino Acids/Dextro... 1,512 ml @ 63 mls/hr TPN CONT IV Last administered on 01/15/18at 22:07; Start 01/15/18 at 22:00; Stop 01/16/18 at 21:59; Status DC Vecuronium Verbena (Norcuron Bolus) 6 mg PRN Q4HRS PRN IV VENT ASYNCHRONY Last administered on 01/17/18at 12:41; Start 01/15/18 at 15:00 Meropenem 500 mg/ Sodium Chloride 50 ml @ 100 mls/hr Q12HR IV Last administered on 01/19/18at 20:49; Start 01/16/18 at 08:00 Metronidazole 100 ml @ 100 mls/hr Q8HRS IV Last administered on 01/20/18at 05: 32; Start 01/16/18 at 08:00 Chlorhexidine Gluconate (Peridex) 15 ml BID MM ; Start 01/16/18 at 21:00; Status Cancel Dextrose/Sodium Chloride 1,000 ml @ 50 mls/hr Q20H IV ; Start 01/16/18 at 10: 00; Stop 01/17/18 at 13:11; Status DC Lorazepam 100 mg/ Sodium Chloride 100 ml @ 2 mls/hr CONT PRN IV SEE PROTOCOL Last administered on 01/20/18at 05:56; Start 01/16/18 at 09:45 Potassium Acetate 30 meq/Potassium Phosphate 3.4 mmol/Magnesium Sulfate 15 meq/ Calcium Gluconate 10 meq/ Multivitamins 10 ml/Chromium/ Copper/Manganese/ Seleni /Zn 1 ml/ Thiamine HCl 100 mg/Folic Acid 1 mg/Total Parenteral Nutrition/Amino Acids/Dextrose 1,512 ml @ 63 mls/hr TPN CONT IV Last administered on at 21:52; Start 01/16/18 at 22:00; Stop 01/17/18 at 21:59; Status DC Hydralazine HCl (Apresoline Inj) 20 mg PRN TID PRN IVP SBP>160 2ND CHOICE Last administered on 01/16/18at 15:27; Start 01/16/18 at 15:30 Nicardipine HCl 50 mg/Sodium Chloride 270 ml @ 27 mls/hr CONT PRN IV SEE I/O RECORD Last administered on 01/20/18at 05:57; Start 01/16/18 at 16:30 Dextrose 500 ml @ 500 mls/hr 1X ONCE IV ; Start 01/17/18 at 07:30; Stop at 10:53; Status DC Insulin Glargine (Lantus) 10 units QHS SQ ; Start 01/17/18 at 21:00; Status Cancel Insulin Glargine (Lantus) 10 units DAILY10 SQ Last administered on 01/18/18at 11:12; Start 01/17/18 at 10:00; Stop 01/18/18 at 16:41; Status DC Dextrose 1,000 ml @ 75 mls/hr [id number] IV Last administered on 01/20/18at 04:25 ; Start 01/17/18 at 11:00 Potassium Acetate 30 meq/Potassium Phosphate 3.4 mmol/Magnesium Sulfate 18 meq/ Calcium Gluconate 10 meq/ Multivitamins 10 ml/Chromium/ Copper/Manganese/ Seleni /Zn 1 ml/ Thiamine HCl 100 mg/Folic Acid 1 mg/Total Parenteral Nutrition/Amino Acids/Dextrose 1,728 ml @ 72 mls/hr TPN CONT IV Last administered on at 21:25; Start 01/17/18 at 22:00; Stop 01/18/18 at 21:59; Status DC Vecuronium Verbena 100 mg/ Dextrose 100 ml @ 7.89 mls/hr CONT PRN IV SEE I/O RECORD; Start 01/17/18 at 19:45; Status Cancel Vecuronium Verbena 100 mg/ Miscellaneous 100 ml @ 7.89 mls/hr CONT PRN IV SEE I/O RECORD Last administered on 01/18/18at 22:55; Start 01/17/18 at 19:45 Insulin Human Lispro (HumaLOG) 10 units 1X ONCE SQ ; Start 01/18/18 at 06:30; Stop 01/18/18 at 06:31; Status DC Insulin Human Lispro (HumaLOG) 8 units Q4HRS SQ Last administered on at 12:28; Start 01/18/18 at 08:30; Stop 01/18/18 at 16:32; Status DC Magnesium Sulfate 50 ml @ 25 mls/hr PRN DAILY PRN IV for mag < 1.7 on am labs Last administered on 01/18/18at 11:44; Start 01/18/18 at 11:00 Desmopressin Acetate (Ddavp) 4 mcg BID SQ Last administered on 01/18/18at 21:38 ; Start 01/18/18 at 11:30; Stop 01/18/18 at 21:01; Status DC Magnesium Sulfate/ Dextrose 100 ml @ 100 mls/hr 1X ONCE IV Last administered on 01/18/18at 11:49; Start 01/18/18 at 11:30; Stop 01/18/18 at 12:29; Status DC Potassium Acetate 30 meq/Magnesium Sulfate 25 meq/ Calcium Gluconate 10 meq/ Multivitamins 10 ml/Chromium/ Copper/Manganese/ Seleni/Zn 1 ml/ Thiamine HCl 100 mg/Folic Acid 1 mg/Total Parenteral Nutrition/Amino Acids/Dextrose/ Fat Emulsion Intravenous 3,000 ml @ 125 mls/hr TPN CONT IV Last administered on 01/18/18at 21:50; Start 01/18/18 at 22:00; Stop 01/19/18 at 21:59; Status DC Daptomycin 780 mg/ Sodium Chloride 50 ml @ 100 mls/hr Q48H IV Last administered on 01/18/18at 15:30; Start 01/18/18 at 15:30 Insulin Human Regular 150 unit/ Sodium Chloride 151.5 ml @ 0 mls/hr CONT PRN IV SEE I/O RECORD Last administered on 01/20/18at 05:10; Start 01/18/18 at 16: 30 Dextrose (Dextrose 50%-Water Syringe) 12.5 gm PRN Q15MIN PRN IV LOW BLOOD SUGAR ; Start 01/18/18 at 16:30; Status UNV Norepinephrine Bitartrate 250 ml @ 1.875 mls/ hr CONT PRN IV SEE I/O RECORD; Start 01/18/18 at 16:30 Desmopressin Acetate (Ddavp) 6 mcg BID SQ Last administered on 01/19/18at 21:00 ; Start 01/19/18 at 12:30 Info (Icu Electrolyte Protocol) 1 ea CONT PRN PRN MC PER PROTOCOL; Start 01/19 at 12:30 Potassium Acetate 60 meq/Magnesium Sulfate 25 meq/ Calcium Gluconate 10 meq/ Multivitamins 10 ml/Chromium/ Copper/Manganese/ Seleni/Zn 1 ml/ Thiamine HCl 100 mg/Folic Acid 1 mg/Total Parenteral Nutrition/Amino Acids/Dextrose/ Fat Emulsion Intravenous 3,000 ml @ 125 mls/hr TPN CONT IV Last administered on 01/19/18at 21:58; Start 01/19/18 at 22:00; Stop 01/20/18 at 21:59 Potassium Chloride/Water 50 ml @ 50 mls/hr Q1H IV Last administered on at 19:24; Start 01/19/18 at 18:00; Stop 01/19/18 at 19:59; Status DC Potassium Chloride/Water 50 ml @ 50 mls/hr Q1H IV ; Start 01/19/18 at 17:15; Stop 01/19/18 at 21:14; Status UNV Potassium Chloride/Water 50 ml @ 50 mls/hr Q1HR IV ; Start 01/19/18 at 18:00; Stop 01/19/18 at 23:59; Status UNV Active Scripts Active Reported [hemp botanicals] Maxitrol Eye Drops (Brandon/Polymyx B Sulf/Dexameth) 5 Ml Drops.susp 1 Drop OD QID Multivitamins (Multivitamin) 1 Each Tablet 1 Tab PO DAILY Magnesium (Magnesium Oxide) 400 Mg Capsule 1 Cap PO DAILY Calcium (Calcium Carbonate) 500 Mg Tab.chew 500 Mg PO Lansoprazole 30 Mg Capsule.dr 1 Cap PO DAILY Losartan Potassium 25 Mg Tablet 25 Mg PO DAILY Tizanidine Hcl 4 Mg Tablet 1 Tab PO TID Tramadol Hcl 50 Mg Tablet 50 Mg PO DAILY PRN Bystolic (Nebivolol Hcl) 20 Mg Tablet 20 Mg PO DAILY Cymbalta (Duloxetine Hcl) 20 Mg Capsule.dr 1 Cap PO DAILY Valacyclovir (Valacyclovir Hcl) 1,000 Mg Tablet 1 Tab PO DAILY Ibuprofen 400 Mg Tablet 400 Mg PO PRN Q6HRS PRN Bystolic (Nebivolol) 10 Mg Tablet 20 Mg PO DAILY Amlodipine Besylate 10 Mg Tablet 10 Mg PO DAILY Vitals/I & O Vital Sign - Last 24 Hours 01/19/18 01/19/18 01/19/18 01/19/18 07:34 08:00 08:00 09:00 Temp 96.8 96.8 Pulse 67 63 Resp 26 26 B/P (MAP) 119/75 (90) 122/77 (92) Pulse Ox 100 99 99 O2 Delivery Ventilator Ventilator Mechanical Ventilator Ventilator 01/19/18 01/19/18 01/19/18 01/19/18 09:07 09:37 10:00 11:00 Pulse 61 68 Resp B/P (MAP) 124/78 (93) 131/81 (98) Pulse Ox 100 100 100 O2 Delivery Ventilator Ventilator Ventilator Ventilator 01/19/18 01/19/18 01/19/18 01/19/18 11:08 12:00 12:00 13:00 Temp 98.5 98.5 Pulse 87 105 Resp B/P (MAP) 126/76 (93) 207/96 (133) Pulse Ox 100 100 100 O2 Delivery Ventilator Mechanical Ventilator Ventilator Ventilator 01/19/18 01/19/18 01/19/18 01/19/18 13:56 14:00 14:28 14:58 Pulse 115 Resp B/P (MAP) 156/86 (109) Pulse Ox 100 100 96 95 O2 Delivery Ventilator Ventilator Ventilator 01/19/18 01/19/18 01/19/18 01/19/18 15:00 15:51 16:00 16:00 Temp 99.5 99.5 Pulse 111 105 Resp B/P (MAP) 144/78 (100) 164/86 (112) Pulse Ox 96 91 91 O2 Delivery Ventilator Ventilator Mechanical Ventilator Ventilator 01/19/18 01/19/18 01/19/18 01/19/18 17:00 18:00 18:07 19:00 Pulse 106 111 113 Resp B/P (MAP) 148/78 (101) 150/81 (104) 171/81 (111) Pulse Ox 92 95 90 96 O2 Delivery Ventilator Ventilator Ventilator Ventilator 01/19/18 01/19/18 01/19/18 01/19/18 19:58 20:00 20:00 20:00 Temp 98.9 98.9 Pulse 113 Resp 30 B/P (MAP) 103/62 (76) Pulse Ox 96 96 O2 Delivery Ventilator Mechanical Ventilator Mechanical Ventilator Ventilator 01/19/18 01/19/18 01/19/18 01/19/18 21:00 22:00 23:00 23:29 Pulse 114 112 108 Resp 26 28 B/P (MAP) 160/84 (109) 153/80 (104) 160/84 (109) Pulse Ox 95 94 92 92 O2 Delivery Ventilator Ventilator Ventilator Ventilator 01/20/18 01/20/18 01/20/18 01/20/18 00:00 00:00 01:00 01:53 Temp 99.4 99.4 Pulse 101 110 Resp 26 26 B/P (MAP) 144/79 (100) 152/89 (110) Pulse Ox 96 97 96 O2 Delivery Mechanical Ventilator Ventilator Ventilator Ventilator 01/20/18 01/20/18 01/20/18 01/20/18 02:00 03:00 04:00 04:00 Temp 99.6 99.6 Pulse 112 107 103 Resp 26 31 29 B/P (MAP) 110/66 (81) 153/87 (109) 152/90 (110) Pulse Ox 96 97 97 O2 Delivery Ventilator Ventilator Ventilator Mechanical Ventilator 01/20/18 01/20/18 01/20/18 01/20/18 04:12 05:00 05:15 05:30 Pulse 82 81 79 Resp 26 B/P (MAP) 86/48 (61) 86/47 (60) 86/48 (61) Pulse Ox 96 96 O2 Delivery Ventilator Ventilator 01/20/18 01/20/18 01/20/18 05:45 05:52 06:00 Pulse 78 76 Resp 26 B/P (MAP) 91/49 (63) 97/57 (70) Pulse Ox 96 99 O2 Delivery Ventilator Ventilator Intake and Output 01/19/18 01/19/18 01/20/18 15:00 23:00 07:00 Intake Total 3349 ml 3392 ml Output Total 1955 ml 2285 ml 1875 ml Balance -1955 ml 1064 ml 1517 ml JOSE APPIAH MD Jan 20, 2018 07:30
[2018-01-20] MEDS ORDERED: LIDOCAINE WITH 8.4% SOD BICARB 3 ML DISP.SYRIN. INJ ONE (07:45)
--- NOTE | 2018-01-20 08:00 | PDOC ---
Infectious Disease Note Subjective Subjective Sedated, now walking up Remains intubated/vent. No fevers last 24 hours TPN No vomiting or diarrhea reported ROS ROS no n/v/d/fever Vital Sign Vital Signs Vital Signs Date Time Temp Pulse Resp B/P (MAP) Pulse Ox O2 Delivery O2 Flow Rate FiO2 01/20/18 07:00 75 26 103/59 (74) 98 Ventilator 01/20/18 04:00 99.6 99.6 Physical Exam PHYSICAL EXAM GENERAL: sedated and intubated. HEENT: Pupils small. ETT and NGT in place. LUNGS: Diminished aeration in the bases. HEART: S1 S2 Regular rhythm. ABDOMEN: Obese. BS active, so grimace or guarding to palpation. GENITOURINARY: Indwelling Cook in place. EXTREMITIES: 1 plus edema or cyanosis. SKIN: He has tattoos. warm without rash NEUROLOGIC: Unresponsive/sedated. RIJ - clean. Labs Lab Laboratory Tests Test 01/19/18 08:38 01/19/18 09:33 01/19/18 10:36 01/19/18 11:40 Glucose (Fingerstick) 139 mg/dL (70-99) 149 mg/dL (70-99) 151 mg/dL (70-99) 142 mg/dL (70-99) Test 01/19/18 13:43 01/19/18 15:46 01/19/18 17:51 01/19/18 20:01 Glucose (Fingerstick) 146 mg/dL (70-99) 156 mg/dL (70-99) 144 mg/dL (70-99) 141 mg/dL (70-99) Test 01/19/18 20:40 01/19/18 21:56 01/19/18 23:57 01/20/18 01:55 Sodium Level 154 mmol/L (136-145) Glucose (Fingerstick) 142 mg/dL (70-99) 160 mg/dL (70-99) 121 mg/dL (70-99) Test 01/20/18 02:55 01/20/18 03:56 01/20/18 05:03 01/20/18 05:25 Glucose (Fingerstick) 133 mg/dL (70-99) 121 mg/dL (70-99) 123 mg/dL (70-99) Prothrombin Time 13.9 SEC (11.7-14.0) Prothromb Time International Ratio 1.1 (0.8-1.1) Activated Partial Thromboplast Time 32 SEC (24-38) Sodium Level 153 mmol/L (136-145) Potassium Level 4.1 mmol/L (3.5-5.1) Chloride Level 117 mmol/L (98-107) Carbon Dioxide Level 25 mmol/L (21-32) Anion Gap 11 (6-14) Blood Urea Nitrogen 55 mg/dL (8-26) Creatinine 2.7 mg/dL (0.7-1.3) Estimated GFR (Cockcroft-Gault) 25.9 Glucose Level 168 mg/dL (70-99) Calcium Level 9.4 mg/dL (8.5-10.1) Test 01/20/18 06:07 01/20/18 07:18 Glucose (Fingerstick) 137 mg/dL (70-99) 138 mg/dL (70-99) Micro BC 1/3 G + cocci id pending Objective Assessment GPC bacteremia (1 of 3 bottles) from 01/16 Pancreatitis Fever likely sec to above/+- aspiration/? infection - better DENISHA Aspiration pneumonia. - Group A strep/Strep pneumo/legionella neg. Gram stain from sputum GPC in pairs from 01/12, no growth Acute encephalopathy with hallucinations and behavioral change Lactic acidosis, improved. Heavy alcohol use. Hyperglycemia. Worsening back pain with urinary incontinence prior to admission. History of methicillin-resistant Staphylococcus aureus - in back Morbid obesity Plan Plan of Care Meropenem (started 01/16) and doxy cont daptomycin renal dosing BC from 01/08 pending -Previously on Zosyn Check C-diff with colitis although likely reactive - Flagyl May need repeat CT abd Monitor labs/temp Await GPC ID D/w RN D/w Dr. Eid Critically ill ALAN KUMARI MD Jan 20, 2018 07:59
[2018-01-20] MEDS: IPRATRPIUM/ALBUTEROL 0.5/2.5MG 3 ML NEBU. NEB SCH ×4 (08:21→19:22)
[2018-01-20 08:36] LABS: BASE EXCESS ABG -6 mmol/L (-3-3); HCO3 ABG 21 mmol/L (21-28); PCO2 ABG 43 mmHg (35-46); PO2 ABG 101 mmHg (75-108); SAT O2 ABG 97 % (92-99)
[2018-01-20 08:40] LABS: FIO2 ABG 50
[2018-01-20] MEDS: DESMOPRESSIN 4 MCG/ML AMPUL. SQ SCH ×2 (09:00→21:00)
[2018-01-20] MEDS: HALOPERIDOL LACTATE 5 MG/ML VIAL. IVP PRN (09:15)
[2018-01-20] MEDS: GEMFIBROZIL 600 MG TABLET. PO SCH ×2 (09:16→14:17)
[2018-01-20] MEDS: FAMOTIDINE 20 MG/2 ML VIAL IVP SCH (09:16)
[2018-01-20] MEDS: DOXYCYCLINE HYCLATE 100 MG in IV DEXTROSE 5% 100ML 100 ML IV SCH ×2 (09:16→21:30)
[2018-01-20] MEDS: MEROPENEM 500 MG in IV NORMAL SALINE 50ML 50 ML IV SCH ×2 (09:17→21:29)
--- NOTE | 2018-01-20 11:39 | PDOC ---
Renal-Progress Notes Subjective Notes Notes INTUBATED History of Present Illness Hx of present illness STABLE Vitals Vitals Vital Signs Date Time Temp Pulse Resp B/P (MAP) Pulse Ox O2 Delivery O2 Flow Rate FiO2 01/20/18 11:00 93 26 129/88 (102) 99 Ventilator 01/20/18 08:00 99.2 99.2 Weight Weight [ ] I.O. Intake and Output Intake and Output 01/20/18 07:00 Intake Total 6741 ml Output Total 6115 ml Balance 626 ml IV Total 6741 ml Output Urine Total 6115 ml # Bowel Movements 1 Labs Labs Laboratory Tests Test 01/19/18 11:40 01/19/18 13:43 01/19/18 15:46 01/19/18 17:51 Glucose (Fingerstick) 142 mg/dL (70-99) 146 mg/dL (70-99) 156 mg/dL (70-99) 144 mg/dL (70-99) Test 01/19/18 20:01 01/19/18 20:40 01/19/18 21:56 01/19/18 23:57 Glucose (Fingerstick) 141 mg/dL (70-99) 142 mg/dL (70-99) 160 mg/dL (70-99) Sodium Level 154 mmol/L (136-145) Test 01/20/18 01:55 01/20/18 02:55 01/20/18 03:56 01/20/18 05:03 Glucose (Fingerstick) 121 mg/dL (70-99) 133 mg/dL (70-99) 121 mg/dL (70-99) 123 mg/dL (70-99) Test 01/20/18 05:25 01/20/18 06:07 01/20/18 07:18 01/20/18 08:05 Prothrombin Time 13.9 SEC (11.7-14.0) Prothromb Time International Ratio 1.1 (0.8-1.1) Activated Partial Thromboplast Time 32 SEC (24-38) Sodium Level 153 mmol/L (136-145) Potassium Level 4.1 mmol/L (3.5-5.1) Chloride Level 117 mmol/L (98-107) Carbon Dioxide Level 25 mmol/L (21-32) Anion Gap 11 (6-14) Blood Urea Nitrogen 55 mg/dL (8-26) Creatinine 2.7 mg/dL (0.7-1.3) Estimated GFR (Cockcroft-Gault) 25.9 Glucose Level 168 mg/dL (70-99) Calcium Level 9.4 mg/dL (8.5-10.1) Glucose (Fingerstick) 137 mg/dL (70-99) 138 mg/dL (70-99) O2 Saturation 97 % (92-99) Arterial Blood pH 7.30 (7.35-7.45) Arterial Blood pCO2 at Patient Temp 43 mmHg (35-46) Arterial Blood pO2 at Patient Temp 101 mmHg (75-108) Arterial Blood HCO3 21 mmol/L (21-28) Arterial Blood Base Excess -6 mmol/L (-3-3) FiO2 50 Test 01/20/18 08:26 01/20/18 09:37 01/20/18 09:40 01/20/18 10:52 Glucose (Fingerstick) 145 mg/dL (70-99) 153 mg/dL (70-99) 156 mg/dL (70-99) Sodium Level 152 mmol/L (136-145) Micro Micro Microbiology 01/18/18 Blood Culture - Preliminary, Resulted NO GROWTH AFTER 1 DAY 01/13/18 Throat Culture - Final, Complete 01/13/18 - Final, Complete Review of Systems Constitutional: yes: unresponsive Physical Exam Respiratory: decreased breath sounds Heart: S1S2 Abdomen: soft, other (HYPOACTIVE) Genitourinary: monteiro catheter Extremities: pulses present, no edema Neurology: other (sedated) Assessment Assessment IMP DI-UO BETTER ETOH ABUSE HYPERNATREMIA DENISHA-BETTER WITH CR DOWN PANCREATITIS ACUTE RESP FAILURE ASP PNEUMONIA PLAN TPN ABX DESMOPRESSIN CONT D5 W WILL FOLLOW RENNY KWAN MD Jan 20, 2018 11:39
[2018-01-20 11:51] LABS: AMYLASE 74 U/L (25-115); LIPASE 456 U/L (73-393)
--- NOTE | 2018-01-20 13:05 | PDOC ---
PULMONARY PROGRESS NOTES Subjective remains on AC mode needs a lot of sedatives to control agitation/ needed to be on paralytic drip 2: 4 TOF/ off since yesterday Vitals Vital Signs Date Time Temp Pulse Resp B/P (MAP) Pulse Ox O2 Delivery O2 Flow Rate FiO2 01/20/18 13:00 98.2 88 15 117/66 (83) 95 Ventilator 98.2 Lungs: Other (decrease bs) Cardiovascular: S1 Abdomen: Soft Extremities: Other (1+edema) Skin: Warm Labs Laboratory Tests Test 01/18/18 16:00 01/18/18 18:00 01/18/18 19:08 01/18/18 20:09 Glucose (Fingerstick) 405 mg/dL (70-99) 355 mg/dL (70-99) 329 mg/dL (70-99) 270 mg/dL (70-99) Test 01/18/18 21:10 01/18/18 22:25 01/18/18 23:33 01/19/18 00:23 Glucose (Fingerstick) 261 mg/dL (70-99) 196 mg/dL (70-99) 174 mg/dL (70-99) 153 mg/dL (70-99) Test 01/19/18 01:21 01/19/18 02:15 01/19/18 03:17 01/19/18 04:19 Glucose (Fingerstick) 149 mg/dL (70-99) 141 mg/dL (70-99) 152 mg/dL (70-99) 149 mg/dL (70-99) Test 01/19/18 05:21 01/19/18 05:24 01/19/18 06:16 01/19/18 07:30 Sodium Level 157 mmol/L (136-145) Potassium Level 3.3 mmol/L (3.5-5.1) Chloride Level 118 mmol/L (98-107) Carbon Dioxide Level 23 mmol/L (21-32) Anion Gap 16 (6-14) Blood Urea Nitrogen 56 mg/dL (8-26) Creatinine 3.1 mg/dL (0.7-1.3) Estimated GFR (Cockcroft-Gault) 22.1 Glucose Level 191 mg/dL (70-99) Calcium Level 9.5 mg/dL (8.5-10.1) Phosphorus Level 4.9 mg/dL (2.6-4.7) Magnesium Level 2.2 mg/dL (1.8-2.4) Glucose (Fingerstick) 164 mg/dL (70-99) 166 mg/dL (70-99) O2 Saturation 97 % (92-99) Arterial Blood pH 7.32 (7.35-7.45) Arterial Blood pCO2 at Patient Temp 44 mmHg (35-46) Arterial Blood pO2 at Patient Temp 94 mmHg (75-108) Arterial Blood HCO3 22 mmol/L (21-28) Arterial Blood Base Excess -4 mmol/L (-3-3) FiO2 40 Test 01/19/18 07:34 01/19/18 08:38 01/19/18 09:33 01/19/18 10:36 Glucose (Fingerstick) 153 mg/dL (70-99) 139 mg/dL (70-99) 149 mg/dL (70-99) 151 mg/dL (70-99) Test 01/19/18 11:40 01/19/18 13:43 01/19/18 15:46 01/19/18 17:51 Glucose (Fingerstick) 142 mg/dL (70-99) 146 mg/dL (70-99) 156 mg/dL (70-99) 144 mg/dL (70-99) Test 01/19/18 20:01 01/19/18 20:40 01/19/18 21:56 01/19/18 23:57 Glucose (Fingerstick) 141 mg/dL (70-99) 142 mg/dL (70-99) 160 mg/dL (70-99) Sodium Level 154 mmol/L (136-145) Test 01/20/18 01:55 01/20/18 02:55 01/20/18 03:56 01/20/18 05:03 Glucose (Fingerstick) 121 mg/dL (70-99) 133 mg/dL (70-99) 121 mg/dL (70-99) 123 mg/dL (70-99) Test 01/20/18 05:25 01/20/18 06:07 01/20/18 07:18 01/20/18 08:05 Prothrombin Time 13.9 SEC (11.7-14.0) Prothromb Time International Ratio 1.1 (0.8-1.1) Activated Partial Thromboplast Time 32 SEC (24-38) Sodium Level 153 mmol/L (136-145) Potassium Level 4.1 mmol/L (3.5-5.1) Chloride Level 117 mmol/L (98-107) Carbon Dioxide Level 25 mmol/L (21-32) Anion Gap 11 (6-14) Blood Urea Nitrogen 55 mg/dL (8-26) Creatinine 2.7 mg/dL (0.7-1.3) Estimated GFR (Cockcroft-Gault) 25.9 Glucose Level 168 mg/dL (70-99) Calcium Level 9.4 mg/dL (8.5-10.1) Glucose (Fingerstick) 137 mg/dL (70-99) 138 mg/dL (70-99) O2 Saturation 97 % (92-99) Arterial Blood pH 7.30 (7.35-7.45) Arterial Blood pCO2 at Patient Temp 43 mmHg (35-46) Arterial Blood pO2 at Patient Temp 101 mmHg (75-108) Arterial Blood HCO3 21 mmol/L (21-28) Arterial Blood Base Excess -6 mmol/L (-3-3) FiO2 50 Test 01/20/18 08:26 01/20/18 09:37 01/20/18 09:40 01/20/18 10:52 Glucose (Fingerstick) 145 mg/dL (70-99) 153 mg/dL (70-99) 156 mg/dL (70-99) Sodium Level 152 mmol/L (136-145) Amylase Level 74 U/L (25-115) Lipase 456 U/L (73-393) Laboratory Tests Test 01/19/18 13:43 01/19/18 15:46 01/19/18 17:51 01/19/18 20:01 Glucose (Fingerstick) 146 mg/dL (70-99) 156 mg/dL (70-99) 144 mg/dL (70-99) 141 mg/dL (70-99) Test 01/19/18 20:40 01/19/18 21:56 01/19/18 23:57 01/20/18 01:55 Sodium Level 154 mmol/L (136-145) Glucose (Fingerstick) 142 mg/dL (70-99) 160 mg/dL (70-99) 121 mg/dL (70-99) Test 01/20/18 02:55 01/20/18 03:56 01/20/18 05:03 01/20/18 05:25 Glucose (Fingerstick) 133 mg/dL (70-99) 121 mg/dL (70-99) 123 mg/dL (70-99) Prothrombin Time 13.9 SEC (11.7-14.0) Prothromb Time International Ratio 1.1 (0.8-1.1) Activated Partial Thromboplast Time 32 SEC (24-38) Sodium Level 153 mmol/L (136-145) Potassium Level 4.1 mmol/L (3.5-5.1) Chloride Level 117 mmol/L (98-107) Carbon Dioxide Level 25 mmol/L (21-32) Anion Gap 11 (6-14) Blood Urea Nitrogen 55 mg/dL (8-26) Creatinine 2.7 mg/dL (0.7-1.3) Estimated GFR (Cockcroft-Gault) 25.9 Glucose Level 168 mg/dL (70-99) Calcium Level 9.4 mg/dL (8.5-10.1) Test 01/20/18 06:07 01/20/18 07:18 01/20/18 08:05 01/20/18 08:26 Glucose (Fingerstick) 137 mg/dL (70-99) 138 mg/dL (70-99) 145 mg/dL (70-99) O2 Saturation 97 % (92-99) Arterial Blood pH 7.30 (7.35-7.45) Arterial Blood pCO2 at Patient Temp 43 mmHg (35-46) Arterial Blood pO2 at Patient Temp 101 mmHg (75-108) Arterial Blood HCO3 21 mmol/L (21-28) Arterial Blood Base Excess -6 mmol/L (-3-3) FiO2 50 Test 01/20/18 09:37 01/20/18 09:40 01/20/18 10:52 Glucose (Fingerstick) 153 mg/dL (70-99) 156 mg/dL (70-99) Sodium Level 152 mmol/L (136-145) Amylase Level 74 U/L (25-115) Lipase 456 U/L (73-393) Medications Active Scripts Medications Dose Route/Sig Max Daily Dose Days Date Category [hemp botanicals] 01/12/18 Reported Maxitrol Eye Drops (Brandon/Polymyx B Sulf/Dexameth) 5 Ml Drops.susp 1 Drop OD QID 01/12/18 Reported Multivitamins (Multivitamin) 1 Each Tablet 1 Tab PO DAILY 01/12/18 Reported Magnesium (Magnesium Oxide) 400 Mg Capsule 1 Cap PO DAILY 01/12/18 Reported Calcium (Calcium Carbonate) 500 Mg Tab.chew 500 Mg PO 01/12/18 Reported Lansoprazole 30 Mg Capsule.dr 1 Cap PO DAILY 01/12/18 Reported Losartan Potassium 25 Mg Tablet 25 Mg PO DAILY 01/12/18 Reported Tizanidine Hcl 4 Mg Tablet 1 Tab PO TID 01/12/18 Reported Tramadol Hcl 50 Mg Tablet 50 Mg PO DAILY PRN 01/12/18 Reported Bystolic (Nebivolol Hcl) 20 Mg Tablet 20 Mg PO DAILY 01/12/18 Reported Cymbalta (Duloxetine Hcl) 20 Mg Capsule.dr 1 Cap PO DAILY 01/12/18 Reported Valacyclovir (Valacyclovir Hcl) 1,000 Mg Tablet 1 Tab PO DAILY 01/12/18 Reported Ibuprofen 400 Mg Tablet 400 Mg PO PRN Q6HRS PRN 09/21/15 Reported Bystolic (Nebivolol) 10 Mg Tablet 20 Mg PO DAILY 09/21/15 Reported Amlodipine Besylate 10 Mg Tablet 10 Mg PO DAILY 09/21/15 Reported Comments Impression . 1. Acute respiratory failure./ multi-factorial 2. severe encephalopathy/ delirium/ ETOH with drawl 3. Sepsis . source pancreatitis 4. alcohol withdrawal /sepsis/ needing multiple sedatives/ prn paralytics/ ativan drip, precedex/ fentanyl, 5. alcoholic pancreatitis, increasing lipase 6. No obvious CHF/ normal EF 7. History of alcohol abuse. Level neg. Positive for Marihuana 8. Obesity? obstructive sleep apnea-hypopnea syndrome. 9. DENISHA,, better 10. Combined met/resp acidosis. improved 11. staph bacteremia Plan . 1. Titrate FiO2 to keep O2 saturation 94%.AC mode. not ready for weaning/ needing heavy amounts of sedation/ paralytics. d/w RN . off paralytic drip now. Will start weaning ativan drip 2. change vent setting per ABG. 3. bronchodilator. 4. repeat lipase increased. follow GI input 5. ID rec/ follow final BC 6. Renal rec 7. Pepcid for stress ulcer prophylaxis. 8. Lovenox 9. follow amylase/ lipase 10. Control blood sugar. 13. The findings and recommendations were discussed with RN./ RT AJ FINK MD Jan 20, 2018 13:05
[2018-01-20] MEDS: TPN PER PHARMACY MC PRN ×2 (13:19→14:32)
--- NOTE | 2018-01-20 13:29 | PDOC ---
Subjective: Subjective: Pt unresponsive and intubated, but has been taken off of paralytic drip. Discussed w/ RN- pt did have BM today. He continues on TPN. His lipase had slightly increased to 667 on 01/18, but today down to 456. Objective: Vital Signs: Vital Signs Date Time Temp Pulse Resp B/P (MAP) Pulse Ox O2 Delivery O2 Flow Rate FiO2 01/20/18 13:00 98.2 88 15 117/66 (83) 95 Ventilator 98.2 Labs: Laboratory Tests Test 01/19/18 13:43 01/19/18 15:46 01/19/18 17:51 01/19/18 20:01 Glucose (Fingerstick) 146 mg/dL (70-99) 156 mg/dL (70-99) 144 mg/dL (70-99) 141 mg/dL (70-99) Test 01/19/18 21:56 01/19/18 23:57 01/20/18 01:55 01/20/18 02:55 Glucose (Fingerstick) 142 mg/dL (70-99) 160 mg/dL (70-99) 121 mg/dL (70-99) 133 mg/dL (70-99) Test 01/20/18 03:56 01/20/18 05:03 01/20/18 06:07 01/20/18 07:18 Glucose (Fingerstick) 121 mg/dL (70-99) 123 mg/dL (70-99) 137 mg/dL (70-99) 138 mg/dL (70-99) Test 01/20/18 08:26 01/20/18 09:37 01/20/18 10:52 01/20/18 13:07 Glucose (Fingerstick) 145 mg/dL (70-99) 153 mg/dL (70-99) 156 mg/dL (70-99) 104 mg/dL (70-99) Imaging: Venous doppler lower extremity 01/20/18 IMPRESSION: No evidence of DVT. Chest x-ray 01/18/18 IMPRESSION: 1. Unchanged bibasilar heterogenous airspace opacities. 2. Possible small left pleural effusion. 3. Unchanged life support devices as above. PE: GEN: intubated HEENT: OG LUNGS: vent HEART: tachycardic ABD: quiet NEURO/PSYCH: sedated A/P: Agitation/encephalopathy, resp failure, DENISHA - remains intubated/sedated Pancreatitis - h/o alcohol and hypertriglyceridemia -Lipase had increased to 667 over weekend, now back down to 456- continue to monitor -- Continue same per GI. KAELA FULTON Jan 20, 2018 13:29
[2018-01-20] MEDS: NORMAL SALINE IV SCH (14:25)
[2018-01-20] MEDS: DAPTOMYCIN IV SCH (14:25)
[2018-01-20] MEDS: IV 1/2 NORMAL SALINE 1,000 ML IV SCH (15:45)
[2018-01-20 17:36] LABS: CALCIUM 9.2 mg/dL (8.5-10.1); CREATININE 2.8 mg/dL (0.7-1.3); GFR 24.9; PHOSPHORUS 4.8 mg/dL (2.6-4.7); POTASSIUM 4.2 mmol/L (3.5-5.1)
[2018-01-20] MEDS ORDERED: TOTAL PARENTERAL NUTRITION IV SCH ×9 (22:00)
[2018-01-20] MEDS ORDERED: [UNRECOGNIZED DRUG - OTHER] IV SCH ×9 (22:00)
[2018-01-20] MEDS ORDERED: AMINO ACIDS IV SCH ×9 (22:00)
[2018-01-20] MEDS ORDERED: DEXTROSE 70% IV SCH ×9 (22:00)
[2018-01-21] VITALS (27 sets, daily range): BP systolic 109–199; BP diastolic 54–103
[2018-01-21] MEDS: HALOPERIDOL LACTATE 5 MG/ML VIAL. IVP PRN (00:53)
[2018-01-21] MEDS: hydrALAZINE 20 MG/ML VIAL. IVP PRN ×2 (01:33→15:42)
[2018-01-21] MEDS: VECURONIUM BOLUS 10 MG VIAL. IV PRN (02:08)
[2018-01-21] MEDS: LABETALOL 20 MG/4 ML DISP.SYRIN. IVP PRN (02:09)
[2018-01-21] MEDS: LORazepam 100 MG in IV NORMAL SALINE 100ML 50 ML IV PRN (02:22)
[2018-01-21] MEDS: DEXMEDETOMIDINE 200 MCG in IV NORMAL SALINE 50ML 48 ML IV PRN ×9 (02:43→21:55)
[2018-01-21] MEDS: INSULIN LISPRO 300 UNITS/3 ML INSULN.PEN. SQ SCH ×3 (06:00→16:18)
[2018-01-21] MEDS: HEPARIN for SUB-Q USE 5,000 UNIT/ML VIAL. SQ SCH ×3 (06:17→22:22)
[2018-01-21 06:24] LABS: CALCIUM 9.2 mg/dL (8.5-10.1); CREATININE 2.7 mg/dL (0.7-1.3); GFR 25.9; MAGNESIUM 2.1 mg/dL (1.8-2.4); PHOSPHORUS 4.1 mg/dL (2.6-4.7); POTASSIUM 3.8 mmol/L (3.5-5.1)
[2018-01-21] MEDS: IPRATRPIUM/ALBUTEROL 0.5/2.5MG 3 ML NEBU. NEB SCH ×4 (07:20→19:19)
--- NOTE | 2018-01-21 07:51 | PDOC ---
Infectious Disease Note Subjective Subjective pt has been awake, and appropriate as per RN all day yesterday, and then at night got agitated now sedated ROS ROS no n/v/d/ Vital Sign Vital Signs Vital Signs Date Time Temp Pulse Resp B/P (MAP) Pulse Ox O2 Delivery O2 Flow Rate FiO2 01/21/18 07:20 100 Ventilator 01/21/18 07:00 88 26 119/63 (81) 01/21/18 04:15 100.1 100.1 Physical Exam PHYSICAL EXAM GENERAL: sedated and intubated. HEENT: Pupils small. ETT and NGT in place. LUNGS: Diminished aeration in the bases. HEART: S1 S2 Regular rhythm. ABDOMEN: Obese. BS active, so grimace or guarding to palpation. GENITOURINARY: Indwelling Cook in place. EXTREMITIES: 1 plus edema or cyanosis. SKIN: He has tattoos. warm without rash NEUROLOGIC: Unresponsive/sedated. RIJ - clean. Labs Lab Laboratory Tests Test 01/20/18 08:05 01/20/18 08:26 01/20/18 09:37 01/20/18 09:40 O2 Saturation 97 % (92-99) Arterial Blood pH 7.30 (7.35-7.45) Arterial Blood pCO2 at Patient Temp 43 mmHg (35-46) Arterial Blood pO2 at Patient Temp 101 mmHg (75-108) Arterial Blood HCO3 21 mmol/L (21-28) Arterial Blood Base Excess -6 mmol/L (-3-3) FiO2 50 Glucose (Fingerstick) 145 mg/dL (70-99) 153 mg/dL (70-99) Sodium Level 152 mmol/L (136-145) Amylase Level 74 U/L (25-115) Lipase 456 U/L (73-393) Test 01/20/18 10:52 01/20/18 13:07 01/20/18 14:20 01/20/18 15:32 Glucose (Fingerstick) 156 mg/dL (70-99) 104 mg/dL (70-99) 92 mg/dL (70-99) 99 mg/dL (70-99) Test 01/20/18 16:45 01/20/18 16:50 01/20/18 18:01 01/20/18 19:15 Sodium Level 152 mmol/L (136-145) Potassium Level 4.2 mmol/L (3.5-5.1) Chloride Level 117 mmol/L (98-107) Carbon Dioxide Level 23 mmol/L (21-32) Anion Gap 12 (6-14) Blood Urea Nitrogen 58 mg/dL (8-26) Creatinine 2.8 mg/dL (0.7-1.3) Estimated GFR (Cockcroft-Gault) 24.9 Glucose Level 161 mg/dL (70-99) Calcium Level 9.2 mg/dL (8.5-10.1) Phosphorus Level 4.8 mg/dL (2.6-4.7) Magnesium Level 2.0 mg/dL (1.8-2.4) Glucose (Fingerstick) 140 mg/dL (70-99) 158 mg/dL (70-99) 152 mg/dL (70-99) Test 01/20/18 20:15 01/20/18 21:17 01/20/18 21:30 01/20/18 23:24 Glucose (Fingerstick) 138 mg/dL (70-99) 153 mg/dL (70-99) 178 mg/dL (70-99) Sodium Level 154 mmol/L (136-145) Test 01/21/18 00:32 01/21/18 01:37 01/21/18 02:49 01/21/18 04:12 Glucose (Fingerstick) 166 mg/dL (70-99) 143 mg/dL (70-99) 148 mg/dL (70-99) 139 mg/dL (70-99) Test 01/21/18 05:24 01/21/18 05:30 01/21/18 06:28 Glucose (Fingerstick) 143 mg/dL (70-99) 148 mg/dL (70-99) Sodium Level 156 mmol/L (136-145) Potassium Level 3.8 mmol/L (3.5-5.1) Chloride Level 119 mmol/L (98-107) Carbon Dioxide Level 22 mmol/L (21-32) Anion Gap 15 (6-14) Blood Urea Nitrogen 56 mg/dL (8-26) Creatinine 2.7 mg/dL (0.7-1.3) Estimated GFR (Cockcroft-Gault) 25.9 Glucose Level 163 mg/dL (70-99) Calcium Level 9.2 mg/dL (8.5-10.1) Phosphorus Level 4.1 mg/dL (2.6-4.7) Magnesium Level 2.1 mg/dL (1.8-2.4) Micro BC 1/3 G + cocci, coag neg staph Objective Assessment GPC bacteremia (1 of 3 bottles) from 01/16 , contaminant Pancreatitis Fever likely sec to above/+- aspiration/? infection - better DENISHA Aspiration pneumonia. - Group A strep/Strep pneumo/legionella neg. Gram stain from sputum GPC in pairs from 01/12, no growth Acute encephalopathy with hallucinations and behavioral change Lactic acidosis, improved. Heavy alcohol use. Hyperglycemia. Worsening back pain with urinary incontinence prior to admission. History of methicillin-resistant Staphylococcus aureus - in back Morbid obesity Plan Plan of Care d/c dapto and doxy cont meropenem, soon to d/c extubation vs trach Critically ill ALAN KUMARI MD Jan 21, 2018 07:51
--- NOTE | 2018-01-21 07:54 | RAD ---
Portable chest, 01/21/2018: HISTORY: Respiratory failure Comparison is made to a study from 01/18/2018. The patient is rotated to the right. The ET tube tip lies well above the darius. A right jugular central venous catheter extends into the inferior aspect of the superior vena cava. An NG tube extends into the stomach. The heart size is unchanged. The left lung base has partially cleared with better definition of the hemidiaphragm. There are mild residual bibasilar opacities. No pleural fluid or pneumothorax is seen. No new abnormality is detected. IMPRESSION: 1. Stable tube positions. 2. Mild bibasilar atelectasis/infiltrate with interval improvement on the left. Electronically signed by: Guilherme Duran MD (01/21/2018 7:51 AM) [facility]
[2018-01-21] MEDS: ACETAMINOPHEN 650 MG/20.3 ML SOLUTION. PEG PRN ×2 (08:45→14:39)
[2018-01-21] MEDS: GEMFIBROZIL 600 MG TABLET. PO SCH ×2 (08:45→14:40)
[2018-01-21] MEDS: MEROPENEM 500 MG in IV NORMAL SALINE 50ML 50 ML IV SCH (08:46)
[2018-01-21] MEDS: IV 1/2 NORMAL SALINE 1,000 ML IV SCH (08:46)
[2018-01-21] MEDS: FAMOTIDINE 20 MG/2 ML VIAL IVP SCH (08:46)
[2018-01-21] MEDS: DESMOPRESSIN 4 MCG/ML AMPUL. SQ SCH (09:00)
--- NOTE | 2018-01-21 09:14 | PDOC ---
PULMONARY PROGRESS NOTES Subjective pt did ok on trial now off sedation except for Precedex Vitals Vital Signs Date Time Temp Pulse Resp B/P (MAP) Pulse Ox O2 Delivery O2 Flow Rate FiO2 01/21/18 08:46 26 100 01/21/18 08:25 Ventilator 01/21/18 07:00 88 119/63 (81) 01/21/18 04:15 100.1 100.1 Lungs: Other (decrease bs) Cardiovascular: S1 Abdomen: Soft Extremities: Other (1+edema) Skin: Warm Labs Laboratory Tests Test 01/19/18 09:33 01/19/18 10:36 01/19/18 11:40 01/19/18 13:43 Glucose (Fingerstick) 149 mg/dL (70-99) 151 mg/dL (70-99) 142 mg/dL (70-99) 146 mg/dL (70-99) Test 01/19/18 15:46 01/19/18 17:51 01/19/18 20:01 01/19/18 20:40 Glucose (Fingerstick) 156 mg/dL (70-99) 144 mg/dL (70-99) 141 mg/dL (70-99) Sodium Level 154 mmol/L (136-145) Test 01/19/18 21:56 01/19/18 23:57 01/20/18 01:55 01/20/18 02:55 Glucose (Fingerstick) 142 mg/dL (70-99) 160 mg/dL (70-99) 121 mg/dL (70-99) 133 mg/dL (70-99) Test 01/20/18 03:56 01/20/18 05:03 01/20/18 05:25 01/20/18 06:07 Glucose (Fingerstick) 121 mg/dL (70-99) 123 mg/dL (70-99) 137 mg/dL (70-99) Prothrombin Time 13.9 SEC (11.7-14.0) Prothromb Time International Ratio 1.1 (0.8-1.1) Activated Partial Thromboplast Time 32 SEC (24-38) Sodium Level 153 mmol/L (136-145) Potassium Level 4.1 mmol/L (3.5-5.1) Chloride Level 117 mmol/L (98-107) Carbon Dioxide Level 25 mmol/L (21-32) Anion Gap 11 (6-14) Blood Urea Nitrogen 55 mg/dL (8-26) Creatinine 2.7 mg/dL (0.7-1.3) Estimated GFR (Cockcroft-Gault) 25.9 Glucose Level 168 mg/dL (70-99) Calcium Level 9.4 mg/dL (8.5-10.1) Test 01/20/18 07:18 01/20/18 08:05 01/20/18 08:26 01/20/18 09:37 Glucose (Fingerstick) 138 mg/dL (70-99) 145 mg/dL (70-99) 153 mg/dL (70-99) O2 Saturation 97 % (92-99) Arterial Blood pH 7.30 (7.35-7.45) Arterial Blood pCO2 at Patient Temp 43 mmHg (35-46) Arterial Blood pO2 at Patient Temp 101 mmHg (75-108) Arterial Blood HCO3 21 mmol/L (21-28) Arterial Blood Base Excess -6 mmol/L (-3-3) FiO2 50 Test 01/20/18 09:40 01/20/18 10:52 01/20/18 13:07 01/20/18 14:20 Sodium Level 152 mmol/L (136-145) Amylase Level 74 U/L (25-115) Lipase 456 U/L (73-393) Glucose (Fingerstick) 156 mg/dL (70-99) 104 mg/dL (70-99) 92 mg/dL (70-99) Test 01/20/18 15:32 01/20/18 16:45 01/20/18 16:50 01/20/18 18:01 Glucose (Fingerstick) 99 mg/dL (70-99) 140 mg/dL (70-99) 158 mg/dL (70-99) Sodium Level 152 mmol/L (136-145) Potassium Level 4.2 mmol/L (3.5-5.1) Chloride Level 117 mmol/L (98-107) Carbon Dioxide Level 23 mmol/L (21-32) Anion Gap 12 (6-14) Blood Urea Nitrogen 58 mg/dL (8-26) Creatinine 2.8 mg/dL (0.7-1.3) Estimated GFR (Cockcroft-Gault) 24.9 Glucose Level 161 mg/dL (70-99) Calcium Level 9.2 mg/dL (8.5-10.1) Phosphorus Level 4.8 mg/dL (2.6-4.7) Magnesium Level 2.0 mg/dL (1.8-2.4) Test 01/20/18 19:15 01/20/18 20:15 01/20/18 21:17 01/20/18 21:30 Glucose (Fingerstick) 152 mg/dL (70-99) 138 mg/dL (70-99) 153 mg/dL (70-99) Sodium Level 154 mmol/L (136-145) Test 01/20/18 23:24 01/21/18 00:32 01/21/18 01:37 01/21/18 02:49 Glucose (Fingerstick) 178 mg/dL (70-99) 166 mg/dL (70-99) 143 mg/dL (70-99) 148 mg/dL (70-99) Test 01/21/18 04:12 01/21/18 05:24 01/21/18 05:30 01/21/18 06:28 Glucose (Fingerstick) 139 mg/dL (70-99) 143 mg/dL (70-99) 148 mg/dL (70-99) Sodium Level 156 mmol/L (136-145) Potassium Level 3.8 mmol/L (3.5-5.1) Chloride Level 119 mmol/L (98-107) Carbon Dioxide Level 22 mmol/L (21-32) Anion Gap 15 (6-14) Blood Urea Nitrogen 56 mg/dL (8-26) Creatinine 2.7 mg/dL (0.7-1.3) Estimated GFR (Cockcroft-Gault) 25.9 Glucose Level 163 mg/dL (70-99) Calcium Level 9.2 mg/dL (8.5-10.1) Phosphorus Level 4.1 mg/dL (2.6-4.7) Magnesium Level 2.1 mg/dL (1.8-2.4) Test 01/21/18 08:55 Glucose (Fingerstick) 126 mg/dL (70-99) Laboratory Tests Test 01/20/18 09:37 01/20/18 09:40 01/20/18 10:52 01/20/18 13:07 Glucose (Fingerstick) 153 mg/dL (70-99) 156 mg/dL (70-99) 104 mg/dL (70-99) Sodium Level 152 mmol/L (136-145) Amylase Level 74 U/L (25-115) Lipase 456 U/L (73-393) Test 01/20/18 14:20 01/20/18 15:32 01/20/18 16:45 01/20/18 16:50 Glucose (Fingerstick) 92 mg/dL (70-99) 99 mg/dL (70-99) 140 mg/dL (70-99) Sodium Level 152 mmol/L (136-145) Potassium Level 4.2 mmol/L (3.5-5.1) Chloride Level 117 mmol/L (98-107) Carbon Dioxide Level 23 mmol/L (21-32) Anion Gap 12 (6-14) Blood Urea Nitrogen 58 mg/dL (8-26) Creatinine 2.8 mg/dL (0.7-1.3) Estimated GFR (Cockcroft-Gault) 24.9 Glucose Level 161 mg/dL (70-99) Calcium Level 9.2 mg/dL (8.5-10.1) Phosphorus Level 4.8 mg/dL (2.6-4.7) Magnesium Level 2.0 mg/dL (1.8-2.4) Test 01/20/18 18:01 01/20/18 19:15 01/20/18 20:15 01/20/18 21:17 Glucose (Fingerstick) 158 mg/dL (70-99) 152 mg/dL (70-99) 138 mg/dL (70-99) 153 mg/dL (70-99) Test 01/20/18 21:30 01/20/18 23:24 01/21/18 00:32 01/21/18 01:37 Sodium Level 154 mmol/L (136-145) Glucose (Fingerstick) 178 mg/dL (70-99) 166 mg/dL (70-99) 143 mg/dL (70-99) Test 01/21/18 02:49 01/21/18 04:12 01/21/18 05:24 01/21/18 05:30 Glucose (Fingerstick) 148 mg/dL (70-99) 139 mg/dL (70-99) 143 mg/dL (70-99) Sodium Level 156 mmol/L (136-145) Potassium Level 3.8 mmol/L (3.5-5.1) Chloride Level 119 mmol/L (98-107) Carbon Dioxide Level 22 mmol/L (21-32) Anion Gap 15 (6-14) Blood Urea Nitrogen 56 mg/dL (8-26) Creatinine 2.7 mg/dL (0.7-1.3) Estimated GFR (Cockcroft-Gault) 25.9 Glucose Level 163 mg/dL (70-99) Calcium Level 9.2 mg/dL (8.5-10.1) Phosphorus Level 4.1 mg/dL (2.6-4.7) Magnesium Level 2.1 mg/dL (1.8-2.4) Test 01/21/18 06:28 01/21/18 08:55 Glucose (Fingerstick) 148 mg/dL (70-99) 126 mg/dL (70-99) Medications Active Scripts Medications Dose Route/Sig Max Daily Dose Days Date Category [hemp botanicals] 01/12/18 Reported Maxitrol Eye Drops (Brandon/Polymyx B Sulf/Dexameth) 5 Ml Drops.susp 1 Drop OD QID 01/12/18 Reported Multivitamins (Multivitamin) 1 Each Tablet 1 Tab PO DAILY 01/12/18 Reported Magnesium (Magnesium Oxide) 400 Mg Capsule 1 Cap PO DAILY 01/12/18 Reported Calcium (Calcium Carbonate) 500 Mg Tab.chew 500 Mg PO 01/12/18 Reported Lansoprazole 30 Mg Capsule.dr 1 Cap PO DAILY 01/12/18 Reported Losartan Potassium 25 Mg Tablet 25 Mg PO DAILY 01/12/18 Reported Tizanidine Hcl 4 Mg Tablet 1 Tab PO TID 01/12/18 Reported Tramadol Hcl 50 Mg Tablet 50 Mg PO DAILY PRN 01/12/18 Reported Bystolic (Nebivolol Hcl) 20 Mg Tablet 20 Mg PO DAILY 01/12/18 Reported Cymbalta (Duloxetine Hcl) 20 Mg Capsule.dr 1 Cap PO DAILY 01/12/18 Reported Valacyclovir (Valacyclovir Hcl) 1,000 Mg Tablet 1 Tab PO DAILY 01/12/18 Reported Ibuprofen 400 Mg Tablet 400 Mg PO PRN Q6HRS PRN 09/21/15 Reported Bystolic (Nebivolol) 10 Mg Tablet 20 Mg PO DAILY 09/21/15 Reported Amlodipine Besylate 10 Mg Tablet 10 Mg PO DAILY 09/21/15 Reported Comments Impression . 1. Acute respiratory failure./ multi-factorial 2. severe encephalopathy/ delirium/ ETOH with drawl 3. Sepsis . source pancreatitis 4. alcohol withdrawal 5. alcoholic pancreatitis 6. No obvious CHF/ normal EF 7. History of alcohol abuse. Level neg. Positive for marihuana 8. Obesity? obstructive sleep apnea-hypopnea syndrome. 9. DENISHA,, better 10. Combined met/resp acidosis. improved 11. staph bacteremia Plan . will maintain off sedation once awaken will extubate, did ok on trial antibx per Id dvt and gi proph d/w RN AND RT JADE VELEZ MD Jan 21, 2018 09:14
[2018-01-21] MEDS ORDERED: NORMAL SALINE IV ONE (11:00)
[2018-01-21] MEDS ORDERED: DESMOPRESSIN IV ONE (11:00)
--- NOTE | 2018-01-21 11:14 | PDOC ---
Renal-Progress Notes Subjective Notes Notes NONE History of Present Illness Hx of present illness NO CHANGE Vitals Vitals Vital Signs Date Time Temp Pulse Resp B/P (MAP) Pulse Ox O2 Delivery O2 Flow Rate FiO2 01/21/18 10:49 Ventilator 01/21/18 10:00 96 26 163/57 (92) 99 01/21/18 08:00 99.6 99.6 Weight Weight [ ] I.O. Intake and Output Intake and Output 01/21/18 07:00 Intake Total 7349 ml Output Total 6505 ml Balance 844 ml IV Total 7349 ml Output Urine Total 6105 ml Stool Total 400 ml # Bowel Movements 5 Labs Labs Laboratory Tests Test 01/20/18 13:07 01/20/18 14:20 01/20/18 15:32 01/20/18 16:45 Glucose (Fingerstick) 104 mg/dL (70-99) 92 mg/dL (70-99) 99 mg/dL (70-99) Sodium Level 152 mmol/L (136-145) Potassium Level 4.2 mmol/L (3.5-5.1) Chloride Level 117 mmol/L (98-107) Carbon Dioxide Level 23 mmol/L (21-32) Anion Gap 12 (6-14) Blood Urea Nitrogen 58 mg/dL (8-26) Creatinine 2.8 mg/dL (0.7-1.3) Estimated GFR (Cockcroft-Gault) 24.9 Glucose Level 161 mg/dL (70-99) Calcium Level 9.2 mg/dL (8.5-10.1) Phosphorus Level 4.8 mg/dL (2.6-4.7) Magnesium Level 2.0 mg/dL (1.8-2.4) Test 01/20/18 16:50 01/20/18 18:01 01/20/18 19:15 01/20/18 20:15 Glucose (Fingerstick) 140 mg/dL (70-99) 158 mg/dL (70-99) 152 mg/dL (70-99) 138 mg/dL (70-99) Test 01/20/18 21:17 01/20/18 21:30 01/20/18 23:24 01/21/18 00:32 Glucose (Fingerstick) 153 mg/dL (70-99) 178 mg/dL (70-99) 166 mg/dL (70-99) Sodium Level 154 mmol/L (136-145) Test 01/21/18 01:37 01/21/18 02:49 01/21/18 04:12 01/21/18 05:24 Glucose (Fingerstick) 143 mg/dL (70-99) 148 mg/dL (70-99) 139 mg/dL (70-99) 143 mg/dL (70-99) Test 01/21/18 05:30 01/21/18 06:28 01/21/18 08:50 01/21/18 08:55 Sodium Level 156 mmol/L (136-145) 157 mmol/L (136-145) Potassium Level 3.8 mmol/L (3.5-5.1) Chloride Level 119 mmol/L (98-107) Carbon Dioxide Level 22 mmol/L (21-32) Anion Gap 15 (6-14) Blood Urea Nitrogen 56 mg/dL (8-26) Creatinine 2.7 mg/dL (0.7-1.3) Estimated GFR (Cockcroft-Gault) 25.9 Glucose Level 163 mg/dL (70-99) Calcium Level 9.2 mg/dL (8.5-10.1) Phosphorus Level 4.1 mg/dL (2.6-4.7) Magnesium Level 2.1 mg/dL (1.8-2.4) Glucose (Fingerstick) 148 mg/dL (70-99) 126 mg/dL (70-99) Test 01/21/18 10:11 Glucose (Fingerstick) 132 mg/dL (70-99) Micro Micro Microbiology 01/18/18 Blood Culture - Preliminary, Resulted NO GROWTH AFTER 2 DAYS 01/13/18 Throat Culture - Final, Complete 01/13/18 - Final, Complete Review of Systems Constitutional: yes: unresponsive Physical Exam Respiratory: decreased breath sounds Heart: S1S2 Abdomen: soft, other (HYPOACTIVE) Genitourinary: monteiro catheter Extremities: pulses present, no edema Neurology: other (sedated) Assessment Assessment IMP DI-UO STILL UP ETOH ABUSE HYPERNATREMIA DENISHA-BETTER WITH CR DOWN PANCREATITIS ACUTE RESP FAILURE ASP PNEUMONIA PLAN TPN ABX DESMOPRESSIN CHANGE TO IV CONT D5 W WILL FOLLOW RENNY KWAN MD Jan 21, 2018 11:14
[2018-01-21] MEDS: IV DEXTROSE 5% 1,000 ML IV SCH (11:16)
--- NOTE | 2018-01-21 11:30 | PDOC ---
Objective: Objective: On a breathing trial now, issues w/ agitation last night. Now w/ rectal tube. Not much from OG. On TPN and H2 harjit. Vital Signs: Vital Signs Date Time Temp Pulse Resp B/P (MAP) Pulse Ox O2 Delivery O2 Flow Rate FiO2 01/21/18 10:49 Ventilator 01/21/18 10:00 96 26 163/57 (92) 99 01/21/18 08:00 99.6 99.6 Labs: Laboratory Tests Test 01/20/18 13:07 01/20/18 14:20 01/20/18 15:32 01/20/18 16:45 Glucose (Fingerstick) 104 mg/dL 92 mg/dL 99 mg/dL Sodium Level 152 mmol/L Potassium Level 4.2 mmol/L Chloride Level 117 mmol/L Carbon Dioxide Level 23 mmol/L Anion Gap 12 Blood Urea Nitrogen 58 mg/dL Creatinine 2.8 mg/dL Estimated GFR (Cockcroft-Gault) 24.9 Glucose Level 161 mg/dL Calcium Level 9.2 mg/dL Phosphorus Level 4.8 mg/dL Magnesium Level 2.0 mg/dL Test 01/20/18 16:50 01/20/18 18:01 01/20/18 19:15 01/20/18 20:15 Glucose (Fingerstick) 140 mg/dL 158 mg/dL 152 mg/dL 138 mg/dL Test 01/20/18 21:17 01/20/18 21:30 01/20/18 23:24 01/21/18 00:32 Glucose (Fingerstick) 153 mg/dL 178 mg/dL 166 mg/dL Sodium Level 154 mmol/L Test 01/21/18 01:37 01/21/18 02:49 01/21/18 04:12 01/21/18 05:24 Glucose (Fingerstick) 143 mg/dL 148 mg/dL 139 mg/dL 143 mg/dL Test 01/21/18 05:30 01/21/18 06:28 01/21/18 08:50 01/21/18 08:55 Sodium Level 156 mmol/L 157 mmol/L Potassium Level 3.8 mmol/L Chloride Level 119 mmol/L Carbon Dioxide Level 22 mmol/L Anion Gap 15 Blood Urea Nitrogen 56 mg/dL Creatinine 2.7 mg/dL Estimated GFR (Cockcroft-Gault) 25.9 Glucose Level 163 mg/dL Calcium Level 9.2 mg/dL Phosphorus Level 4.1 mg/dL Magnesium Level 2.1 mg/dL Glucose (Fingerstick) 148 mg/dL 126 mg/dL Test 01/21/18 10:11 01/21/18 11:19 Glucose (Fingerstick) 132 mg/dL 163 mg/dL PE: GEN: intubated LUNGS: vent HEART: RRR ABD: round and soft, quiet BS NEURO/PSYCH: eyes flutter open, moves legs A/P: Agitation, resp failure - breathing trial DENISHA - better Pancreatitis - w/ h/o alcohol and hypertriglyceridemia -- Observe from GI standpoint. MARILYN VASQUEZ Jan 21, 2018 11:30
[2018-01-21 11:47] LABS: BASE EXCESS ABG -5 mmol/L (-3-3); HCO3 ABG 21 mmol/L (21-28); PO2 ABG 108 mmHg (75-108); SAT O2 ABG 98 % (92-99)
[2018-01-21 11:48] LABS: FIO2 ABG 50; PCO2 ABG 40 mmHg (35-46)
[2018-01-21] MEDS ORDERED: IBUPROFEN 400 MG TABLET. PO PRN (13:45)
--- NOTE | 2018-01-21 14:01 | PDOC ---
PROGRESS NOTES Chief Complaint Chief Complaint Acute respiratory failure ETOH intoxication versus dependence, not protecting airway hence intubated at the emergency room LLL pneumonia Sepsis likely secondary to LLL pneumonia Severe agitation, could be secondary to alcohol withdrawal versus sepsis versus others Pancreatitis - hyperglycemia with hypertriglyceridemia Elevated BNP and troponin elevation Obesity BMI 39 - poss obstructive sleep apnea-hypopnea syndrome H/o alcohol abuse H/o anxiety H/o GERD H/o hypertension History of Present Illness History of Present Illness Pt seen and examined in the ICU Discussed with RN Pt is laying in bed, sedated, intubated, and on a ventilator set at spontaneous , Vt 550, O2 50%, PEEP 7 Vitals Vitals Vital Signs Date Time Temp Pulse Resp B/P (MAP) Pulse Ox O2 Delivery O2 Flow Rate FiO2 01/21/18 13:10 98 Ventilator 01/21/18 13:00 100.5 96 26 158/94 (115) 100.5 Physical Exam Physical Exam GENERAL: sedated and intubated. HEENT: Pupils small. ETT and NGT in place. LUNGS: Diminished aeration in the bases. HEART: S1 S2 Regular rhythm. ABDOMEN: Obese. BS active, so grimace or guarding to palpation. GENITOURINARY: Indwelling Cook in place. EXTREMITIES: 1 plus edema or cyanosis. SKIN: He has tattoos. warm without rash NEUROLOGIC: Unresponsive/sedated. RIJ - clean. General: Other (sedated on a ventilator) Heart: Regular rate Lungs: Clear, Other (decrease bs, on a ventilator) Abdomen: Normal bowel sounds, Soft Extremities: No clubbing, No cyanosis, No edema, Normal pulses Skin: No rashes, No breakdown Labs LABS Laboratory Tests Test 01/20/18 14:20 01/20/18 15:32 01/20/18 16:45 01/20/18 16:50 Glucose (Fingerstick) 92 mg/dL (70-99) 99 mg/dL (70-99) 140 mg/dL (70-99) Sodium Level 152 mmol/L (136-145) Potassium Level 4.2 mmol/L (3.5-5.1) Chloride Level 117 mmol/L (98-107) Carbon Dioxide Level 23 mmol/L (21-32) Anion Gap 12 (6-14) Blood Urea Nitrogen 58 mg/dL (8-26) Creatinine 2.8 mg/dL (0.7-1.3) Estimated GFR (Cockcroft-Gault) 24.9 Glucose Level 161 mg/dL (70-99) Calcium Level 9.2 mg/dL (8.5-10.1) Phosphorus Level 4.8 mg/dL (2.6-4.7) Magnesium Level 2.0 mg/dL (1.8-2.4) Test 01/20/18 18:01 01/20/18 19:15 01/20/18 20:15 01/20/18 21:17 Glucose (Fingerstick) 158 mg/dL (70-99) 152 mg/dL (70-99) 138 mg/dL (70-99) 153 mg/dL (70-99) Test 01/20/18 21:30 01/20/18 23:24 01/21/18 00:32 01/21/18 01:37 Sodium Level 154 mmol/L (136-145) Glucose (Fingerstick) 178 mg/dL (70-99) 166 mg/dL (70-99) 143 mg/dL (70-99) Test 01/21/18 02:49 01/21/18 04:12 01/21/18 05:24 01/21/18 05:30 Glucose (Fingerstick) 148 mg/dL (70-99) 139 mg/dL (70-99) 143 mg/dL (70-99) Sodium Level 156 mmol/L (136-145) Potassium Level 3.8 mmol/L (3.5-5.1) Chloride Level 119 mmol/L (98-107) Carbon Dioxide Level 22 mmol/L (21-32) Anion Gap 15 (6-14) Blood Urea Nitrogen 56 mg/dL (8-26) Creatinine 2.7 mg/dL (0.7-1.3) Estimated GFR (Cockcroft-Gault) 25.9 Glucose Level 163 mg/dL (70-99) Calcium Level 9.2 mg/dL (8.5-10.1) Phosphorus Level 4.1 mg/dL (2.6-4.7) Magnesium Level 2.1 mg/dL (1.8-2.4) Test 01/21/18 06:28 01/21/18 08:50 01/21/18 08:55 01/21/18 10:11 Glucose (Fingerstick) 148 mg/dL (70-99) 126 mg/dL (70-99) 132 mg/dL (70-99) Sodium Level 157 mmol/L (136-145) Test 01/21/18 11:19 01/21/18 11:40 01/21/18 12:45 Glucose (Fingerstick) 163 mg/dL (70-99) 144 mg/dL (70-99) O2 Saturation 98 % (92-99) Arterial Blood pH 7.33 (7.35-7.45) Arterial Blood pCO2 at Patient Temp 40 mmHg (35-46) Arterial Blood pO2 at Patient Temp 108 mmHg (75-108) Arterial Blood HCO3 21 mmol/L (21-28) Arterial Blood Base Excess -5 mmol/L (-3-3) FiO2 50 Review of Systems Review of Systems Pt is sedated and intubated, on a ventilator. Unable to obtain. Assessment and Plan Assessmemt and Plan Problems Medical Problems: (1) Diabetic keto-acidosis Status: Acute (2) Hyperglycemia due to type 2 diabetes mellitus Status: Acute (3) Metabolic acidemia Status: Acute (4) Metabolic encephalopathy Status: Acute Assessment: Acute respiratory failure ETOH intoxication versus dependence, not protecting airway hence intubated at the emergency room LLL pneumonia Sepsis likely secondary to LLL pneumonia Severe agitation, could be secondary to alcohol withdrawal versus sepsis versus others Pancreatitis - hyperglycemia with hypertriglyceridemia Elevated BNP and troponin elevation Obesity BMI 39 - poss obstructive sleep apnea-hypopnea syndrome H/o alcohol abuse H/o anxiety H/o GERD H/o hypertension Plan: ICU monitoring Vent weaning Alcohol withdrawal protocol Labs Home meds IV PPI DVT ppx Comment Review of Relevant I have reviewed the following items franklyn (where applicable) has been applied. Labs Laboratory Tests Test 01/19/18 15:46 01/19/18 17:51 01/19/18 20:01 01/19/18 20:40 Glucose (Fingerstick) 156 mg/dL (70-99) 144 mg/dL (70-99) 141 mg/dL (70-99) Sodium Level 154 mmol/L (136-145) Test 01/19/18 21:56 01/19/18 23:57 01/20/18 01:55 01/20/18 02:55 Glucose (Fingerstick) 142 mg/dL (70-99) 160 mg/dL (70-99) 121 mg/dL (70-99) 133 mg/dL (70-99) Test 01/20/18 03:56 01/20/18 05:03 01/20/18 05:25 01/20/18 06:07 Glucose (Fingerstick) 121 mg/dL (70-99) 123 mg/dL (70-99) 137 mg/dL (70-99) Prothrombin Time 13.9 SEC (11.7-14.0) Prothromb Time International Ratio 1.1 (0.8-1.1) Activated Partial Thromboplast Time 32 SEC (24-38) Sodium Level 153 mmol/L (136-145) Potassium Level 4.1 mmol/L (3.5-5.1) Chloride Level 117 mmol/L (98-107) Carbon Dioxide Level 25 mmol/L (21-32) Anion Gap 11 (6-14) Blood Urea Nitrogen 55 mg/dL (8-26) Creatinine 2.7 mg/dL (0.7-1.3) Estimated GFR (Cockcroft-Gault) 25.9 Glucose Level 168 mg/dL (70-99) Calcium Level 9.4 mg/dL (8.5-10.1) Test 01/20/18 07:18 01/20/18 08:05 01/20/18 08:26 01/20/18 09:37 Glucose (Fingerstick) 138 mg/dL (70-99) 145 mg/dL (70-99) 153 mg/dL (70-99) O2 Saturation 97 % (92-99) Arterial Blood pH 7.30 (7.35-7.45) Arterial Blood pCO2 at Patient Temp 43 mmHg (35-46) Arterial Blood pO2 at Patient Temp 101 mmHg (75-108) Arterial Blood HCO3 21 mmol/L (21-28) Arterial Blood Base Excess -6 mmol/L (-3-3) FiO2 50 Test 01/20/18 09:40 01/20/18 10:52 01/20/18 13:07 01/20/18 14:20 Sodium Level 152 mmol/L (136-145) Amylase Level 74 U/L (25-115) Lipase 456 U/L (73-393) Glucose (Fingerstick) 156 mg/dL (70-99) 104 mg/dL (70-99) 92 mg/dL (70-99) Test 01/20/18 15:32 01/20/18 16:45 01/20/18 16:50 01/20/18 18:01 Glucose (Fingerstick) 99 mg/dL (70-99) 140 mg/dL (70-99) 158 mg/dL (70-99) Sodium Level 152 mmol/L (136-145) Potassium Level 4.2 mmol/L (3.5-5.1) Chloride Level 117 mmol/L (98-107) Carbon Dioxide Level 23 mmol/L (21-32) Anion Gap 12 (6-14) Blood Urea Nitrogen 58 mg/dL (8-26) Creatinine 2.8 mg/dL (0.7-1.3) Estimated GFR (Cockcroft-Gault) 24.9 Glucose Level 161 mg/dL (70-99) Calcium Level 9.2 mg/dL (8.5-10.1) Phosphorus Level 4.8 mg/dL (2.6-4.7) Magnesium Level 2.0 mg/dL (1.8-2.4) Test 01/20/18 19:15 01/20/18 20:15 01/20/18 21:17 01/20/18 21:30 Glucose (Fingerstick) 152 mg/dL (70-99) 138 mg/dL (70-99) 153 mg/dL (70-99) Sodium Level 154 mmol/L (136-145) Test 01/20/18 23:24 01/21/18 00:32 01/21/18 01:37 01/21/18 02:49 Glucose (Fingerstick) 178 mg/dL (70-99) 166 mg/dL (70-99) 143 mg/dL (70-99) 148 mg/dL (70-99) Test 01/21/18 04:12 01/21/18 05:24 01/21/18 05:30 01/21/18 06:28 Glucose (Fingerstick) 139 mg/dL (70-99) 143 mg/dL (70-99) 148 mg/dL (70-99) Sodium Level 156 mmol/L (136-145) Potassium Level 3.8 mmol/L (3.5-5.1) Chloride Level 119 mmol/L (98-107) Carbon Dioxide Level 22 mmol/L (21-32) Anion Gap 15 (6-14) Blood Urea Nitrogen 56 mg/dL (8-26) Creatinine 2.7 mg/dL (0.7-1.3) Estimated GFR (Cockcroft-Gault) 25.9 Glucose Level 163 mg/dL (70-99) Calcium Level 9.2 mg/dL (8.5-10.1) Phosphorus Level 4.1 mg/dL (2.6-4.7) Magnesium Level 2.1 mg/dL (1.8-2.4) Test 01/21/18 08:50 01/21/18 08:55 01/21/18 10:11 01/21/18 11:19 Sodium Level 157 mmol/L (136-145) Glucose (Fingerstick) 126 mg/dL (70-99) 132 mg/dL (70-99) 163 mg/dL (70-99) Test 01/21/18 11:40 01/21/18 12:45 O2 Saturation 98 % (92-99) Arterial Blood pH 7.33 (7.35-7.45) Arterial Blood pCO2 at Patient Temp 40 mmHg (35-46) Arterial Blood pO2 at Patient Temp 108 mmHg (75-108) Arterial Blood HCO3 21 mmol/L (21-28) Arterial Blood Base Excess -5 mmol/L (-3-3) FiO2 50 Glucose (Fingerstick) 144 mg/dL (70-99) Laboratory Tests Test 01/20/18 14:20 01/20/18 15:32 01/20/18 16:45 01/20/18 16:50 Glucose (Fingerstick) 92 mg/dL (70-99) 99 mg/dL (70-99) 140 mg/dL (70-99) Sodium Level 152 mmol/L (136-145) Potassium Level 4.2 mmol/L (3.5-5.1) Chloride Level 117 mmol/L (98-107) Carbon Dioxide Level 23 mmol/L (21-32) Anion Gap 12 (6-14) Blood Urea Nitrogen 58 mg/dL (8-26) Creatinine 2.8 mg/dL (0.7-1.3) Estimated GFR (Cockcroft-Gault) 24.9 Glucose Level 161 mg/dL (70-99) Calcium Level 9.2 mg/dL (8.5-10.1) Phosphorus Level 4.8 mg/dL (2.6-4.7) Magnesium Level 2.0 mg/dL (1.8-2.4) Test 01/20/18 18:01 01/20/18 19:15 01/20/18 20:15 01/20/18 21:17 Glucose (Fingerstick) 158 mg/dL (70-99) 152 mg/dL (70-99) 138 mg/dL (70-99) 153 mg/dL (70-99) Test 01/20/18 21:30 01/20/18 23:24 01/21/18 00:32 01/21/18 01:37 Sodium Level 154 mmol/L (136-145) Glucose (Fingerstick) 178 mg/dL (70-99) 166 mg/dL (70-99) 143 mg/dL (70-99) Test 01/21/18 02:49 01/21/18 04:12 01/21/18 05:24 01/21/18 05:30 Glucose (Fingerstick) 148 mg/dL (70-99) 139 mg/dL (70-99) 143 mg/dL (70-99) Sodium Level 156 mmol/L (136-145) Potassium Level 3.8 mmol/L (3.5-5.1) Chloride Level 119 mmol/L (98-107) Carbon Dioxide Level 22 mmol/L (21-32) Anion Gap 15 (6-14) Blood Urea Nitrogen 56 mg/dL (8-26) Creatinine 2.7 mg/dL (0.7-1.3) Estimated GFR (Cockcroft-Gault) 25.9 Glucose Level 163 mg/dL (70-99) Calcium Level 9.2 mg/dL (8.5-10.1) Phosphorus Level 4.1 mg/dL (2.6-4.7) Magnesium Level 2.1 mg/dL (1.8-2.4) Test 01/21/18 06:28 01/21/18 08:50 01/21/18 08:55 01/21/18 10:11 Glucose (Fingerstick) 148 mg/dL (70-99) 126 mg/dL (70-99) 132 mg/dL (70-99) Sodium Level 157 mmol/L (136-145) Test 01/21/18 11:19 01/21/18 11:40 01/21/18 12:45 Glucose (Fingerstick) 163 mg/dL (70-99) 144 mg/dL (70-99) O2 Saturation 98 % (92-99) Arterial Blood pH 7.33 (7.35-7.45) Arterial Blood pCO2 at Patient Temp 40 mmHg (35-46) Arterial Blood pO2 at Patient Temp 108 mmHg (75-108) Arterial Blood HCO3 21 mmol/L (21-28) Arterial Blood Base Excess -5 mmol/L (-3-3) FiO2 50 Microbiology 01/18/18 Blood Culture - Preliminary, Resulted NO GROWTH AFTER 2 DAYS 01/13/18 Throat Culture - Final, Complete 01/13/18 - Final, Complete Medications Current Medications Lorazepam (Ativan) 1 mg 1X ONCE IV Last administered on 01/11/18at 12:25; Start 01/11/18 at 12:30; Stop 01/11/18 at 12:31; Status DC Lorazepam (Ativan) 2 mg 1X ONCE IV Last administered on 01/11/18at 13:03; Start 01/11/18 at 12:45; Stop 01/11/18 at 12:46; Status DC Dextrose/Sodium Chloride 1,000 ml @ 0 mls/hr 1X ONCE IV ; Start 01/11/18 at 13:00; Stop 01/11/18 at 13:16; Status DC Sodium Chloride 1,000 ml @ 1,000 mls/hr 1X ONCE IV Last administered on 01/11at 13:41; Start 01/11/18 at 13:30; Stop 01/11/18 at 14:29; Status DC Sodium Chloride 1,000 ml @ 1,000 mls/hr 1X ONCE IV Last administered on 01/11at 13:42; Start 01/11/18 at 13:30; Stop 01/11/18 at 14:29; Status DC Lorazepam (Ativan) 1 mg 1X ONCE IV Last administered on 01/11/18at 15:08; Start 01/11/18 at 13:30; Stop 01/11/18 at 13:31; Status DC Lorazepam (Ativan) 1 mg 1X ONCE IV Last administered on 01/11/18at 13:43; Start 01/11/18 at 13:30; Stop 01/11/18 at 13:33; Status DC Aspirin (Children'S Aspirin) 324 mg 1X ONCE PO Last administered on at 14:02; Start 01/11/18 at 13:45; Stop 01/11/18 at 13:46; Status DC Haloperidol Lactate (Haldol Inj) 5 mg PRN Q6HRS PRN IVP SEVERE AGITATION Last administered on 01/21/18at 00:53; Start 01/11/18 at 16:15 Lorazepam (Ativan) 4 mg PRN Q4HRS PRN IV ANXIETY / AGITATION Last administered on 01/21/18at 01:33; Start 01/11/18 at 16:15 Multivitamins 10 ml/Thiamine HCl 100 mg/Folic Acid 1 mg/Sodium Chloride 1,011.2 ml @ 125 mls/ hr DAILY IV Last administered on 01/14/18at 08:19; Start at 17:00; Stop 01/14/18 at 21:59; Status DC Dexmedetomidine HCl 200 mcg/ Sodium Chloride 50 ml @ 0 mls/hr CONT PRN IV PER PROTOCOL Last administered on 01/11/18at 17:00; Start 01/11/18 at 16:45; Stop 01/11/18 at 18:38; Status DC Sodium Chloride 500 ml @ 500 mls/hr 1X PRN PRN IV SEE COMMENTS; Start at 16:45 Atropine Sulfate (ATROPINE 0.5mg SYRINGE) 0.5 mg PRN Q5MIN PRN IV SEE COMMENTS ; Start 01/11/18 at 16:45 Lorazepam (Ativan) 4 mg PRN Q1HR PRN PO For CIWA 8-14; Start 01/11/18 at 18:15 Lorazepam (Ativan) 8 mg PRN Q1HR PRN PO For CIWA 15 or greater; Start at 18:15 Lorazepam (Ativan) 2 mg PRN Q1HR PRN IV For CIWA 8-14; Start 01/11/18 at 18:15 Lorazepam (Ativan) 4 mg PRN Q1HR PRN IV For CIWA 15 or greater Last administered on 01/15/18at 23:04; Start 01/11/18 at 18:15 Diphenhydramine HCl (Benadryl) 25 mg PRN Q15MIN PRN IVP EPS symptoms 2'Haldol admin; Start 01/11/18 at 18:15 Olanzapine (ZyPREXA IM) 10 mg 1X ONCE IM Last administered on 01/11/18at 18:42 ; Start 01/11/18 at 18:45; Stop 01/11/18 at 18:46; Status DC Dexmedetomidine HCl 200 mcg/ Sodium Chloride 50 ml @ 7 mls/hr CONT PRN IV PER PROTOCOL; Start 01/11/18 at 18:38; Stop 01/11/18 at 21:19; Status DC Propofol 100 ml @ As Directed STK-MED ONCE IV ; Start 01/11/18 at 18:43; Stop 01/11/18 at 18:44; Status DC Succinylcholine Chloride (Anectine) 200 mg STK-MED ONCE .ROUTE ; Start at 18:44; Stop 01/11/18 at 18:45; Status DC Fentanyl Citrate 30 ml @ 2.5 mls/hr CONT PRN IV PER PROTOCOL Last administered on 01/21/18at 08:25; Start 01/11/18 at 19:00 Propofol 100 ml @ 4.2 mls/hr CONT PRN IV PER PROTOCOL; Start 01/11/18 at 18: 45; Status Cancel Fentanyl Citrate (Fentanyl 2ml Vial) 25 mcg PRN Q1HR PRN IV SEE COMMENTS.; Start 01/11/18 at 18:45; Stop 01/21/18 at 08:42; Status DC Fentanyl Citrate (Fentanyl 2ml Vial) 50 mcg PRN Q1HR PRN IV SEE COMMENTS. Last administered on 01/11/18at 20:21; Start 01/11/18 at 18:45; Stop 01/21/18 at 08 :42; Status DC Morphine Sulfate (Morphine Sulfate) 2 mg PRN Q1HR PRN IV SEE COMMENTS.; Start 01/11/18 at 18:45 Morphine Sulfate (Morphine Sulfate) 4 mg PRN Q1HR PRN IV SEE COMMENTS.; Start 01/11/18 at 18:45 Hydromorphone HCl (Dilaudid) 0.2 mg PRN Q1HR PRN IV SEE COMMENTS.; Start 01/11 at 18:45 Hydromorphone HCl (Dilaudid) 0.4 mg PRN Q1HR PRN IV SEE COMMENTS.; Start 01/11 at 18:45 Morphine Sulfate (Morphine Sulfate) 2 mg PRN Q1HR PRN IV ; Start 01/11/18 at 18:45; Status UNV Morphine Sulfate (Morphine Sulfate) 4 mg PRN Q1HR PRN IV ; Start 01/11/18 at 18:45; Status UNV Midazolam HCl 100 ml @ 1 mls/hr CONT PRN IV PER PROTOCOL Last administered on 01/16/18at 04:52; Start 01/11/18 at 18:45; Stop 01/16/18 at 09:52; Status DC Epinephrine HCl (EPINEPHrine SYRINGE) 1 mg STK-MED ONCE .ROUTE ; Start at 18:56; Stop 01/11/18 at 18:57; Status DC Propofol 100 ml @ 2.103 mls/ hr CONT PRN IV SEE I/O RECORD Last administered on 01/11/18at 20:23; Start 01/11/18 at 19:00 Vecuronium Edwards (Norcuron Bolus) 10 mg STK-MED ONCE IV ; Start 01/11/18 at 19:02; Stop 01/11/18 at 19:03; Status DC Vancomycin HCl (Vanco Per Pharmacy) 1 each PRN DAILY PRN MC SEE COMMENTS Last administered on 01/12/18at 11:47; Start 01/11/18 at 20:15; Stop 01/12/18 at 13 :14; Status DC Piperacillin Sod/ Tazobactam Sod (Zosyn Per Pharmacy) 1 each PRN DAILY PRN MC SEE COMMENTS; Start 01/11/18 at 20:15; Stop 01/13/18 at 08:00; Status DC Piperacillin Sod/ Tazobactam Sod 4.5 gm/Sodium Chloride 100 ml @ 200 mls/hr Q6HRS IV Last administered on 01/13/18at 06:48; Start 01/12/18 at 00:00; Stop 01/13/18 at 07:57; Status DC Vancomycin HCl 2 gm/Sodium Chloride 500 ml @ 250 mls/hr 1X ONCE IV Last administered on 01/11/18at 21:00; Start 01/11/18 at 21:00; Stop 01/11/18 at 22 :59; Status DC Insulin Human Lispro (HumaLOG) 0-7 UNITS Q6HRS SQ Last administered on at 11:23; Start 01/12/18 at 00:00 Dextrose (Dextrose 50%-Water Syringe) 12.5 gm PRN Q15MIN PRN IV SEE COMMENTS; Start 01/11/18 at 21:00 Sodium Chloride 1,000 ml @ 100 mls/hr Q10H IV Last administered on 01/16/18at 03:59; Start 01/11/18 at 21:00; Stop 01/16/18 at 09:47; Status DC Dexmedetomidine HCl 200 mcg/ Sodium Chloride 50 ml @ 0 mls/hr CONT PRN IV PER PROTOCOL Last administered on 01/21/18at 11:21; Start 01/11/18 at 21:00 Acetaminophen (Tylenol) 650 mg PRN Q6HRS PRN PEG MILD PAIN / TEMP Last administered on 01/21/18at 08:45; Start 01/11/18 at 21:30 Magnesium Sulfate 50 ml @ 25 mls/hr 1X ONCE IV Last administered on at 01:27; Start 01/12/18 at 01:00; Stop 01/12/18 at 02:59; Status DC Sodium Chloride 1,000 ml @ 1,000 mls/hr 1X ONCE IV Last administered on 01/12at 01:00; Start 01/12/18 at 04:30; Stop 01/12/18 at 05:29; Status DC Vancomycin HCl 1.5 gm/Sodium Chloride 500 ml @ 250 mls/hr Q12H IV Last administered on 01/12/18at 08:44; Start 01/12/18 at 09:00; Stop 01/12/18 at 13 :14; Status DC Vancomycin HCl (Vancomycin Trough Level) 1 each 1X ONCE MC ; Start 01/12/18 at 20:30; Stop 01/12/18 at 20:30; Status DC Sodium Chloride 500 ml @ 500 mls/hr 1X ONCE IV Last administered on at 07:26; Start 01/12/18 at 07:00; Stop 01/12/18 at 07:59; Status DC Famotidine (Pepcid Vial) 20 mg BID IVP Last administered on 01/13/18at 20:49; Start 01/12/18 at 09:00; Stop 01/14/18 at 09:40; Status DC Albuterol/ Ipratropium (Duoneb) 3 ml RTQID NEB Last administered on 01/21/18at 11:43; Start 01/12/18 at 08:00 Heparin Sodium (Porcine) (Heparin Sodium) 5,000 unit Q8HRS SQ Last administered on 01/21/18at 06:17; Start 01/12/18 at 14:00 Gemfibrozil (Lopid) 600 mg BIDBFRMEAL PO Last administered on 01/21/18at 08:45 ; Start 01/12/18 at 10:00 Linezolid/Dextrose 300 ml @ 300 mls/hr Q12HR IV Last administered on at 08:39; Start 01/12/18 at 21:00; Stop 01/15/18 at 12:06; Status DC Vecuronium Edwards (Norcuron Bolus) 10 mg STK-MED ONCE IV ; Start 01/11/18 at 19:00; Stop 01/13/18 at 07:59; Status DC Succinylcholine Chloride (Anectine) 200 mg STK-MED ONCE .ROUTE ; Start at 19:00; Stop 01/13/18 at 07:59; Status DC Propofol (Diprivan) 1,000 mg STK-MED ONCE IV ; Start 01/11/18 at 19:00; Stop 01/13/18 at 07:59; Status DC Epinephrine HCl (EPINEPHrine SYRINGE) 1 mg STK-MED ONCE .ROUTE ; Start at 19:00; Stop 01/13/18 at 07:59; Status DC Piperacillin Sod/ Tazobactam Sod 2.25 gm/Sodium Chloride 50 ml @ 100 mls/hr Q8HRS IV Last administered on 01/16/18at 05:59; Start 01/13/18 at 14:00; Stop 01/16/18 at 07:31; Status DC Doxycycline Hyclate 100 mg/ Dextrose 100 ml @ 50 mls/hr Q12HR IV Last administered on 01/20/18at 21:30; Start 01/13/18 at 09:00; Stop 01/21/18 at 07 :51; Status DC Sodium Bicarbonate (Sodium Bicarb Adult 8.4% Syr) 100 meq 1X ONCE IV Last administered on 01/13/18at 09:12; Start 01/13/18 at 09:15; Stop 01/13/18 at 09 :16; Status DC Sodium Chloride 1,000 ml @ 1,000 mls/hr Q1H IV ; Start 01/13/18 at 12:30; Status Cancel Sodium Chloride 1,000 ml @ 1,000 mls/hr 1X ONCE IV Last administered on 01/13at 12:15; Start 01/13/18 at 12:15; Stop 01/13/18 at 13:14; Status DC Vecuronium Edwards (Norcuron Bolus) 6 mg PRN Q6HRS PRN IV VENT ASYNCHRONY Last administered on 01/15/18at 10:23; Start 01/13/18 at 12:30; Stop 01/15/18 at 14 :51; Status DC Info (Tpn Per Pharmacy) 1 each PRN DAILY PRN MC SEE COMMENTS Last administered on 01/20/18at 14:32; Start 01/14/18 at 09:45 Famotidine (Pepcid Vial) 20 mg DAILY IVP Last administered on 01/21/18at 08:46 ; Start 01/15/18 at 09:00 Sodium Bicarbonate (Sodium Bicarb Adult 8.4% Syr) 50 meq STK-MED ONCE .ROUTE ; Start 01/14/18 at 11:12; Stop 01/14/18 at 11:13; Status DC Labetalol HCl (Normodyne Iv Push) 10 mg PRN Q4HRS PRN IVP HYPERTENSION, SEE COMMENTS Last administered on 01/17/18at 10:39; Start 01/14/18 at 11:30; Stop 01/21/18 at 01:57; Status DC Sodium Bicarbonate (Sodium Bicarb Adult 8.4% Syr) 100 meq 1X ONCE IV Last administered on 01/14/18at 11:34; Start 01/14/18 at 11:30; Stop 01/14/18 at 11 :31; Status DC Sodium Chloride 45 meq/Sodium Acetate 45 meq/ Potassium Chloride 30 meq/ Potassium Phosphate 6.8 mmol/Magnesium Sulfate 10 meq/ Calcium Gluconate 10 meq / Multivitamins 10 ml/Chromium/ Copper/Manganese/ Seleni/Zn 1 ml/ Thiamine HCl 100 mg/Folic Acid 1 mg/Total Julieta... 1,512 ml @ 63 mls/hr TPN CONT IV Last administered on 01/14/18at 21:37; Start 01/14/18 at 22:00; Stop 01/15/18 at 21:59; Status DC Labetalol HCl (Normodyne Iv Push) 20 mg PRN Q2HR PRN IVP HYPERTENSION, SEE COMMENTS Last administered on 01/21/18at 02:09; Start 01/14/18 at 15:30 Multivitamins 10 ml/Thiamine HCl 100 mg/Folic Acid 1 mg/Sodium Chloride 1,011.2 ml @ 1,000.088 mls/hr 1X ONCE IV ; Start 01/15/18 at 08:15; Stop 01/15/18 at 09:15; Status UNV Sodium Chloride 1,000 ml @ 1,000 mls/hr Q1H PRN IV hypotension; Start at 09:06; Stop 01/15/18 at 09:32; Status DC Albumin Human 200 ml @ 200 mls/hr 1X ONCE IV ; Start 01/15/18 at 09:15; Stop 01/15/18 at 09:32; Status DC Acetaminophen (Tylenol) 500 mg 1X PRN PRN PO MILD PAIN / TEMP; Start 01/15/18 at 09:15; Stop 01/15/18 at 09:32; Status DC Diphenhydramine HCl (Benadryl) 25 mg 1X PRN PRN IV ITCHING; Start 01/15/18 at 09:15; Stop 01/15/18 at 09:32; Status DC Pharmacy Consult (C.diff Med Screen By Rx) 1 each PRN 1X PRN MC SEE COMMENTS; Start 01/15/18 at 09:30; Status Cancel Sodium Chloride 1,000 ml @ 400 mls/hr Q2H30M PRN IV PATENCY; Start 01/15/18 at 09:06; Stop 01/15/18 at 09:32; Status DC Info (PHARMACY MONITORING -- do not chart) 1 each PRN DAILY PRN MC SEE COMMENTS ; Start 01/15/18 at 09:15 Sodium Acetate 75 meq/Potassium Chloride 30 meq/ Potassium Phosphate 6.8 mmol/ Magnesium Sulfate 13 meq/ Calcium Gluconate 10 meq/ Multivitamins 10 ml/Chromium / Copper/Manganese/ Seleni/Zn 1 ml/ Thiamine HCl 100 mg/Folic Acid 1 mg/Total Parenteral Nutrition/Amino Acids/Dextro... 1,492 ml @ 62.167 mls/ hr TPN CONT IV ; Start 01/15/18 at 22:00; Stop 01/15/18 at 22:00; Status DC Sodium Acetate 75 meq/Potassium Chloride 30 meq/ Potassium Phosphate 6.8 mmol/ Magnesium Sulfate 13 meq/ Calcium Gluconate 10 meq/ Multivitamins 10 ml/Chromium / Copper/Manganese/ Seleni/Zn 1 ml/ Thiamine HCl 100 mg/Folic Acid 1 mg/Total Parenteral Nutrition/Amino Acids/Dextro... 1,512 ml @ 63 mls/hr TPN CONT IV Last administered on 01/15/18at 22:07; Start 01/15/18 at 22:00; Stop 01/16/18 at 21:59; Status DC Vecuronium Edwards (Norcuron Bolus) 6 mg PRN Q4HRS PRN IV VENT ASYNCHRONY Last administered on 01/21/18at 02:08; Start 01/15/18 at 15:00 Meropenem 500 mg/ Sodium Chloride 50 ml @ 100 mls/hr Q12HR IV Last administered on 01/21/18at 08:46; Start 01/16/18 at 08:00 Metronidazole 100 ml @ 100 mls/hr Q8HRS IV Last administered on 01/21/18at 06: 16; Start 01/16/18 at 08:00 Chlorhexidine Gluconate (Peridex) 15 ml BID MM ; Start 01/16/18 at 21:00; Status Cancel Dextrose/Sodium Chloride 1,000 ml @ 50 mls/hr Q20H IV ; Start 01/16/18 at 10: 00; Stop 01/17/18 at 13:11; Status DC Lorazepam 100 mg/ Sodium Chloride 100 ml @ 2 mls/hr CONT PRN IV SEE PROTOCOL Last administered on 01/21/18at 02:22; Start 01/16/18 at 09:45 Potassium Acetate 30 meq/Potassium Phosphate 3.4 mmol/Magnesium Sulfate 15 meq/ Calcium Gluconate 10 meq/ Multivitamins 10 ml/Chromium/ Copper/Manganese/ Seleni /Zn 1 ml/ Thiamine HCl 100 mg/Folic Acid 1 mg/Total Parenteral Nutrition/Amino Acids/Dextrose 1,512 ml @ 63 mls/hr TPN CONT IV Last administered on at 21:52; Start 01/16/18 at 22:00; Stop 01/17/18 at 21:59; Status DC Hydralazine HCl (Apresoline Inj) 20 mg PRN TID PRN IVP SBP>160 2ND CHOICE Last administered on 01/21/18at 01:33; Start 01/16/18 at 15:30 Nicardipine HCl 50 mg/Sodium Chloride 270 ml @ 27 mls/hr CONT PRN IV SEE I/O RECORD Last administered on 01/21/18at 03:18; Start 01/16/18 at 16:30 Dextrose 500 ml @ 500 mls/hr 1X ONCE IV ; Start 01/17/18 at 07:30; Stop at 10:53; Status DC Insulin Glargine (Lantus) 10 units QHS SQ ; Start 01/17/18 at 21:00; Status Cancel Insulin Glargine (Lantus) 10 units DAILY10 SQ Last administered on 01/18/18at 11:12; Start 01/17/18 at 10:00; Stop 01/18/18 at 16:41; Status DC Dextrose 1,000 ml @ 75 mls/hr [id number] IV Last administered on 01/20/18at 04:25 ; Start 01/17/18 at 11:00; Stop 01/20/18 at 15:40; Status DC Potassium Acetate 30 meq/Potassium Phosphate 3.4 mmol/Magnesium Sulfate 18 meq/ Calcium Gluconate 10 meq/ Multivitamins 10 ml/Chromium/ Copper/Manganese/ Seleni /Zn 1 ml/ Thiamine HCl 100 mg/Folic Acid 1 mg/Total Parenteral Nutrition/Amino Acids/Dextrose 1,728 ml @ 72 mls/hr TPN CONT IV Last administered on at 21:25; Start 01/17/18 at 22:00; Stop 01/18/18 at 21:59; Status DC Vecuronium Edwards 100 mg/ Dextrose 100 ml @ 7.89 mls/hr CONT PRN IV SEE I/O RECORD; Start 01/17/18 at 19:45; Status Cancel Vecuronium Edwards 100 mg/ Miscellaneous 100 ml @ 7.89 mls/hr CONT PRN IV SEE I/O RECORD Last administered on 01/18/18at 22:55; Start 01/17/18 at 19:45 Insulin Human Lispro (HumaLOG) 10 units 1X ONCE SQ ; Start 01/18/18 at 06:30; Stop 01/18/18 at 06:31; Status DC Insulin Human Lispro (HumaLOG) 8 units Q4HRS SQ Last administered on at 12:28; Start 01/18/18 at 08:30; Stop 01/18/18 at 16:32; Status DC Magnesium Sulfate 50 ml @ 25 mls/hr PRN DAILY PRN IV for mag < 1.7 on am labs Last administered on 01/18/18at 11:44; Start 01/18/18 at 11:00 Desmopressin Acetate (Ddavp) 4 mcg BID SQ Last administered on 01/18/18at 21:38 ; Start 01/18/18 at 11:30; Stop 01/18/18 at 21:01; Status DC Magnesium Sulfate/ Dextrose 100 ml @ 100 mls/hr 1X ONCE IV Last administered on 01/18/18at 11:49; Start 01/18/18 at 11:30; Stop 01/18/18 at 12:29; Status DC Potassium Acetate 30 meq/Magnesium Sulfate 25 meq/ Calcium Gluconate 10 meq/ Multivitamins 10 ml/Chromium/ Copper/Manganese/ Seleni/Zn 1 ml/ Thiamine HCl 100 mg/Folic Acid 1 mg/Total Parenteral Nutrition/Amino Acids/Dextrose/ Fat Emulsion Intravenous 3,000 ml @ 125 mls/hr TPN CONT IV Last administered on 01/18/18at 21:50; Start 01/18/18 at 22:00; Stop 01/19/18 at 21:59; Status DC Daptomycin 780 mg/ Sodium Chloride 50 ml @ 100 mls/hr Q48H IV Last administered on 01/20/18at 14:25; Start 01/18/18 at 15:30; Stop 01/21/18 at 07 :51; Status DC Insulin Human Regular 150 unit/ Sodium Chloride 151.5 ml @ 0 mls/hr CONT PRN IV SEE I/O RECORD Last administered on 01/20/18at 05:10; Start 01/18/18 at 16: 30 Dextrose (Dextrose 50%-Water Syringe) 12.5 gm PRN Q15MIN PRN IV LOW BLOOD SUGAR ; Start 01/18/18 at 16:30; Status UNV Norepinephrine Bitartrate 250 ml @ 1.875 mls/ hr CONT PRN IV SEE I/O RECORD; Start 01/18/18 at 16:30 Desmopressin Acetate (Ddavp) 6 mcg BID SQ Last administered on 01/20/18at 21:00 ; Start 01/19/18 at 12:30; Stop 01/21/18 at 10:41; Status DC Info ([facility] Electrolyte Protocol) 1 ea CONT PRN PRN MC PER PROTOCOL; Start 01/19 at 12:30 Potassium Acetate 60 meq/Magnesium Sulfate 25 meq/ Calcium Gluconate 10 meq/ Multivitamins 10 ml/Chromium/ Copper/Manganese/ Seleni/Zn 1 ml/ Thiamine HCl 100 mg/Folic Acid 1 mg/Total Parenteral Nutrition/Amino Acids/Dextrose/ Fat Emulsion Intravenous 3,000 ml @ 125 mls/hr TPN CONT IV Last administered on 01/19/18at 21:58; Start 01/19/18 at 22:00; Stop 01/20/18 at 21:59; Status DC Potassium Chloride/Water 50 ml @ 50 mls/hr Q1H IV Last administered on at 19:24; Start 01/19/18 at 18:00; Stop 01/19/18 at 19:59; Status DC Potassium Chloride/Water 50 ml @ 50 mls/hr Q1H IV ; Start 01/19/18 at 17:15; Stop 01/19/18 at 21:14; Status UNV Potassium Chloride/Water 50 ml @ 50 mls/hr Q1HR IV ; Start 01/19/18 at 18:00; Stop 01/19/18 at 23:59; Status UNV Lidocaine/Sodium Bicarbonate (Buffered Lidocaine 1%) 6 ml 1X ONCE INJ ; Start 01/20/18 at 07:45; Stop 01/20/18 at 07:47; Status DC Potassium Acetate 60 meq/Magnesium Sulfate 25 meq/ Calcium Gluconate 10 meq/ Multivitamins 10 ml/Chromium/ Copper/Manganese/ Seleni/Zn 1 ml/ Thiamine HCl 100 mg/Folic Acid 1 mg/Total Parenteral Nutrition/Amino Acids/Dextrose 3,000 ml @ 125 mls/hr TPN CONT IV Last administered on 01/20/18at 21:54; Start at 22:00; Stop 01/21/18 at 21:59 Sodium Chloride 1,000 ml @ 75 mls/hr [id number] IV Last administered on at 08:46; Start 01/20/18 at 15:45; Stop 01/21/18 at 10:41; Status DC Dextrose 1,000 ml @ 75 mls/hr [id number] IV Last administered on 01/21/18at 11:16 ; Start 01/21/18 at 10:45 Desmopressin Acetate 6 mcg/ Sodium Chloride 51.5 ml @ 102 mls/hr 1X ONCE IV Last administered on 01/21/18at 11:00; Start 01/21/18 at 11:00; Stop 01/21/18 at 11:30; Status DC Potassium Acetate 60 meq/Magnesium Sulfate 25 meq/ Calcium Gluconate 10 meq/ Multivitamins 10 ml/Chromium/ Copper/Manganese/ Seleni/Zn 1 ml/ Thiamine HCl 100 mg/Folic Acid 1 mg/Total Parenteral Nutrition/Amino Acids/Dextrose/ Fat Emulsion Intravenous 3,000 ml @ 125 mls/hr TPN CONT IV ; Start 01/21/18 at 22 :00; Stop 01/22/18 at 21:59 Tramadol HCl (Ultram) 50 mg DAILY PRN PO PAIN; Start 01/21/18 at 12:00 Venlafaxine HCl (Effexor) 50 mg BID PO ; Start 01/21/18 at 14:00 Amlodipine Besylate (Norvasc) 10 mg DAILY PO ; Start 01/21/18 at 14:00 Ibuprofen (Motrin) 400 mg PRN Q6HRS PRN PO INFLAMMATION; Start 01/21/18 at 13: 45 Losartan Potassium (Cozaar) 25 mg DAILY PO ; Start 01/21/18 at 14:00 Neomycin/ Polymyxin/ Dexamethasone (Maxitrol) 1 drop QID OD ; Start 01/21/18 at 17:00; Status UNV Pantoprazole Sodium (Protonix) 40 mg DAILYAC PO ; Start 01/22/18 at 07:30 Magnesium Oxide (Magnesium Oxide) 400 mg DAILY PO ; Start 01/22/18 at 09:00 Multivitamins (Thera M Plus) 1 tab DAILY PO ; Start 01/22/18 at 09:00 Non-Formulary Medication (Nebivolol Hcl (Bystolic)) 20 mg DAILY PO ; Start at 09:00; Status UNV Non-Formulary Medication (Nebivolol Hcl (Bystolic)) 20 mg DAILY PO ; Start at 09:00; Status UNV Non-Formulary Medication (Tizanidine Hcl ) 1 tab TID PO ; Start 01/21/18 at 14: 00; Status UNV Active Scripts Active [facility] Maxitrol Eye Drops (Brandon/Polymyx B Sulf/Dexameth) 5 Ml Drops.susp 1 Drop OD QID Multivitamins (Multivitamin) 1 Each Tablet 1 Tab PO DAILY Magnesium (Magnesium Oxide) 400 Mg Capsule 1 Cap PO DAILY Calcium (Calcium Carbonate) 500 Mg Tab.chew 500 Mg PO Lansoprazole 30 Mg Capsule.dr 1 Cap PO DAILY Losartan Potassium 25 Mg Tablet 25 Mg PO DAILY Tizanidine Hcl 4 Mg Tablet 1 Tab PO TID Tramadol Hcl 50 Mg Tablet 50 Mg PO DAILY PRN Bystolic (Nebivolol Hcl) 20 Mg Tablet 20 Mg PO DAILY Cymbalta (Duloxetine Hcl) 20 Mg Capsule.dr 1 Cap PO DAILY Valacyclovir (Valacyclovir Hcl) 1,000 Mg Tablet 1 Tab PO DAILY Ibuprofen 400 Mg Tablet 400 Mg PO PRN Q6HRS PRN Bystolic (Nebivolol) 10 Mg Tablet 20 Mg PO DAILY Amlodipine Besylate 10 Mg Tablet 10 Mg PO DAILY Vitals/I & O Vital Sign - Last 24 Hours 01/20/18 01/20/18 01/20/18 01/20/18 14:00 14:00 14:25 15:00 Pulse 97 94 Resp 22 22 B/P (MAP) 118/68 (85) 125/75 (92) Pulse Ox 99 97 95 99 O2 Delivery Ventilator Ventilator Ventilator 01/20/18 01/20/18 01/20/18 01/20/18 15:55 16:00 16:00 17:00 Pulse 87 99 Resp 20 21 B/P (MAP) 124/75 (91) 135/80 (98) Pulse Ox 99 100 99 O2 Delivery Ventilator Mechanical Ventilator Ventilator Ventilator 01/20/18 01/20/18 01/20/18 01/20/18 18:00 18:08 19:00 19:22 Pulse 99 103 Resp 20 26 B/P (MAP) 136/70 (92) 145/87 (106) Pulse Ox 99 99 99 98 O2 Delivery Ventilator Ventilator Ventilator Ventilator 01/20/18 01/20/18 01/20/18 01/20/18 20:00 20:00 20:25 21:00 Temp 100.2 100.2 Pulse 107 114 Resp 29 30 B/P (MAP) 167/89 (115) 163/97 (119) Pulse Ox 98 98 94 O2 Delivery Ventilator Mechanical Ventilator Ventilator Ventilator 01/20/18 01/20/18 01/21/18 01/21/18 23:00 23:30 00:00 00:00 Temp 99.5 99.5 Pulse 112 112 Resp 31 30 B/P (MAP) 182/92 (122) 166/94 (118) Pulse Ox 90 94 97 O2 Delivery Ventilator Ventilator Mechanical Ventilator Ventilator 01/21/18 01/21/18 01/21/18 01/21/18 01:00 01:03 01:33 02:00 Pulse 116 115 132 Resp 32 36 B/P (MAP) 175/89 (117) 193/102 144/83 (103) Pulse Ox 98 94 95 O2 Delivery Ventilator Ventilator Ventilator 01/21/18 01/21/18 01/21/18 01/21/18 02:09 03:00 03:30 03:30 Pulse 128 104 112 Resp 34 B/P (MAP) 173/102 188/95 (126) 199/101 (133) Pulse Ox 97 94 O2 Delivery Ventilator Ventilator 01/21/18 01/21/18 01/21/18 01/21/18 03:45 04:00 04:00 04:15 Temp 100.1 100.1 Pulse 113 106 106 Resp 28 B/P (MAP) 191/88 (122) 182/93 (122) 128/67 (87) Pulse Ox 97 O2 Delivery Mechanical Ventilator Ventilator 01/21/18 01/21/18 01/21/18 01/21/18 05:00 05:17 06:00 07:00 Pulse 88 92 88 Resp 26 27 26 B/P (MAP) 109/54 (72) 134/70 (91) 119/63 (81) Pulse Ox 98 98 99 99 O2 Delivery Ventilator Ventilator Ventilator Ventilator 01/21/18 01/21/18 01/21/18 01/21/18 07:20 08:00 08:00 08:25 Temp 99.6 99.6 Pulse 89 Resp 26 26 B/P (MAP) 132/77 (95) Pulse Ox 100 100 100 O2 Delivery Ventilator Ventilator Mechanical Ventilator Ventilator 01/21/18 01/21/18 01/21/18 01/21/18 08:46 09:00 09:13 10:00 Pulse 96 96 Resp 26 26 26 B/P (MAP) 145/87 (106) 163/57 (92) Pulse Ox 100 99 100 99 O2 Delivery Ventilator Ventilator Ventilator 01/21/18 01/21/18 01/21/18 01/21/18 10:49 11:00 11:34 12:00 Pulse 102 Resp 18 B/P (MAP) 181/103 (129) Pulse Ox 99 98 O2 Delivery Ventilator Ventilator Ventilator Mechanical Ventilator 01/21/18 01/21/18 01/21/18 01/21/18 12:00 12:01 13:00 13:10 Temp 100.5 100.5 Pulse 111 96 Resp 22 26 B/P (MAP) 174/95 (121) 158/94 (115) Pulse Ox 99 98 98 O2 Delivery Ventilator Ventilator Ventilator Ventilator Intake and Output 01/20/18 01/20/18 01/21/18 15:00 23:00 07:00 Intake Total 234 ml 2419 ml 4696 ml Output Total 1700 ml 2105 ml 2700 ml Balance -1466 ml 314 ml 1996 ml DREA SORENSON III DO Jan 21, 2018 14:01
[2018-01-21] MEDS ORDERED: MEROPENEM 500 MG in IV NORMAL SALINE 50ML 50 ML IV SCH (14:30)
[2018-01-21] MEDS: VANCOMYCIN 125 MG/2.5 ML ORAL SOLUTION. PO SCH ×2 (14:39→20:38)
[2018-01-21] MEDS: tiZANidine 4 MG TABLET. PO SCH ×2 (14:39→20:37)
[2018-01-21] MEDS: VENLAFAXINE 50 MG TABLET. PO SCH ×2 (14:40→20:37)
[2018-01-21] MEDS: LOSARTAN POTASSIUM 25 MG TABLET. PO SCH (14:40)
[2018-01-21] MEDS: METOPROLOL TART IMMED RELEASE 50 MG TABLET. PO SCH ×2 (14:40→20:38)
[2018-01-21] MEDS: amLODIPine BESYLATE 10 MG TABLET PO SCH (14:41)
[2018-01-21] MEDS: INSULIN REGULAR VIAL 150 UNIT in 0.9 % SODIUM CHLORIDE 150ML 150 ML IV PRN (15:43)
[2018-01-21] MEDS: MORPHINE SULFATE 2 MG/ML VIAL. IV PRN (15:49)
[2018-01-21] MEDS: TPN PER PHARMACY MC PRN (16:41)
[2018-01-21] MEDS: NEO/POLYMYX/DEXAMETH OPHTH SUSPENSION 5ML BOTTLE. OD SCH ×2 (17:00→21:00)
[2018-01-21] MEDS ORDERED: DEXTROSE 70% IV SCH ×19 (22:00)
[2018-01-21] MEDS ORDERED: TOTAL PARENTERAL NUTRITION IV SCH ×19 (22:00)
[2018-01-21] MEDS ORDERED: [UNRECOGNIZED DRUG - OTHER] IV SCH ×19 (22:00)
[2018-01-21] MEDS ORDERED: AMINO ACIDS IV SCH ×19 (22:00)
[2018-01-22] VITALS (24 sets, daily range): BP systolic 112–177; BP diastolic 71–110
[2018-01-22] MEDS: IV DEXTROSE 5% 1,000 ML IV SCH ×2 (00:08→17:38)
[2018-01-22] MEDS: DEXMEDETOMIDINE 200 MCG in IV NORMAL SALINE 50ML 48 ML IV PRN ×4 (01:05→11:48)
[2018-01-22] MEDS: HEPARIN for SUB-Q USE 5,000 UNIT/ML VIAL. SQ SCH ×3 (05:44→22:24)
[2018-01-22] MEDS: INSULIN LISPRO 300 UNITS/3 ML INSULN.PEN. SQ SCH ×4 (06:00→14:53)
[2018-01-22 06:21] LABS: BASO # 0.1 x10^3/uL (0.0-0.2); BASO % 1 % (0-3); EOS # 0.3 x10^3/uL (0.0-0.7); EOS % 2 % (0-3); HEMOGLOBIN 10.2 g/dL (13.0-17.5); LYMPH # 2.3 x10^3/uL (1.0-4.8); LYMPH % 19 % (24-48); MEAN CORPUSCULAR HEMOGLOBIN 32 pg (25-35); MEAN CORPUSCULAR HGB CONC 32 g/dL (31-37); MEAN CORPUSCULAR VOLUME 100 fL (79-100); MONO # 0.8 x10^3/uL (0.0-1.1); MONO % 6 % (0-9); NEUT # 8.8 x10^3uL (1.8-7.7); NEUT % 72 % (31-73); PLATELET COUNT 389 x10^3/uL (140-400); RED BLOOD COUNT 3.21 x10^6/uL (4.30-5.70); RED CELL DISTRIBUTION WIDTH 14.7 % (11.5-14.5); WHITE BLOOD COUNT 12.2 x10^3/uL (4.0-11.0)
[2018-01-22 06:25] LABS: CALCIUM 9.8 mg/dL (8.5-10.1); CREATININE 2.4 mg/dL (0.7-1.3); GFR 29.7; MAGNESIUM 2.5 mg/dL (1.8-2.4); PHOSPHORUS 5.5 mg/dL (2.6-4.7); POTASSIUM 4.2 mmol/L (3.5-5.1)
[2018-01-22] MEDS: PANTOPRAZOLE 40 MG TABLET.DR. PO SCH (07:09)
--- NOTE | 2018-01-22 07:31 | PDOC ---
Infectious Disease Note Subjective Subjective pt has been awake, and appropriate nodding ROS ROS no n/v/ does have diarrhea Vital Sign Vital Signs Vital Signs Date Time Temp Pulse Resp B/P (MAP) Pulse Ox O2 Delivery O2 Flow Rate FiO2 01/22/18 06:00 90 26 147/84 (105) 98 Ventilator 01/22/18 04:00 99.7 99.7 Physical Exam PHYSICAL EXAM GENERAL: sedated and intubated. HEENT: Pupils small. ETT and NGT in place. LUNGS: Diminished aeration in the bases. HEART: S1 S2 Regular rhythm. ABDOMEN: Obese. BS active, so grimace or guarding to palpation. GENITOURINARY: Indwelling Cook in place. EXTREMITIES: 1 plus edema or cyanosis. SKIN: He has tattoos. warm without rash NEUROLOGIC: awake, intubated RIJ - clean. Labs Lab Laboratory Tests Test 01/21/18 08:50 01/21/18 08:55 01/21/18 10:11 01/21/18 11:19 Sodium Level 157 mmol/L (136-145) Glucose (Fingerstick) 126 mg/dL (70-99) 132 mg/dL (70-99) 163 mg/dL (70-99) Test 01/21/18 11:40 01/21/18 12:45 01/21/18 14:09 01/21/18 15:47 O2 Saturation 98 % (92-99) Arterial Blood pH 7.33 (7.35-7.45) Arterial Blood pCO2 at Patient Temp 40 mmHg (35-46) Arterial Blood pO2 at Patient Temp 108 mmHg (75-108) Arterial Blood HCO3 21 mmol/L (21-28) Arterial Blood Base Excess -5 mmol/L (-3-3) FiO2 50 Glucose (Fingerstick) 144 mg/dL (70-99) 145 mg/dL (70-99) 162 mg/dL (70-99) Test 01/21/18 16:15 01/21/18 17:06 01/21/18 19:21 01/21/18 21:00 Glucose (Fingerstick) 179 mg/dL (70-99) 138 mg/dL (70-99) 138 mg/dL (70-99) Sodium Level 154 mmol/L (136-145) Test 01/21/18 21:47 01/21/18 22:52 01/22/18 00:03 01/22/18 01:07 Glucose (Fingerstick) 168 mg/dL (70-99) 146 mg/dL (70-99) 143 mg/dL (70-99) 161 mg/dL (70-99) Test 01/22/18 02:09 01/22/18 03:12 01/22/18 04:12 01/22/18 05:23 Glucose (Fingerstick) 147 mg/dL (70-99) 139 mg/dL (70-99) 132 mg/dL (70-99) 137 mg/dL (70-99) Test 01/22/18 05:30 01/22/18 06:37 White Blood Count 12.2 x10^3/uL (4.0-11.0) Red Blood Count 3.21 x10^6/uL (4.30-5.70) Hemoglobin 10.2 g/dL (13.0-17.5) Hematocrit 32.0 % (39.0-53.0) Mean Corpuscular Volume 100 fL (79-100) Mean Corpuscular Hemoglobin 32 pg (25-35) Mean Corpuscular Hemoglobin Concent 32 g/dL (31-37) Red Cell Distribution Width 14.7 % (11.5-14.5) Platelet Count 389 x10^3/uL (140-400) Neutrophils (%) (Auto) 72 % (31-73) Lymphocytes (%) (Auto) 19 % (24-48) Monocytes (%) (Auto) 6 % (0-9) Eosinophils (%) (Auto) 2 % (0-3) Basophils (%) (Auto) 1 % (0-3) Neutrophils # (Auto) 8.8 x10^3uL (1.8-7.7) Lymphocytes # (Auto) 2.3 x10^3/uL (1.0-4.8) Monocytes # (Auto) 0.8 x10^3/uL (0.0-1.1) Eosinophils # (Auto) 0.3 x10^3/uL (0.0-0.7) Basophils # (Auto) 0.1 x10^3/uL (0.0-0.2) Sodium Level 153 mmol/L (136-145) Potassium Level 4.2 mmol/L (3.5-5.1) Chloride Level 117 mmol/L (98-107) Carbon Dioxide Level 23 mmol/L (21-32) Anion Gap 13 (6-14) Blood Urea Nitrogen 57 mg/dL (8-26) Creatinine 2.4 mg/dL (0.7-1.3) Estimated GFR (Cockcroft-Gault) 29.7 Glucose Level 157 mg/dL (70-99) Calcium Level 9.8 mg/dL (8.5-10.1) Phosphorus Level 5.5 mg/dL (2.6-4.7) Magnesium Level 2.5 mg/dL (1.8-2.4) Glucose (Fingerstick) 135 mg/dL (70-99) Micro BC 1/3 G + cocci, coag neg staph Objective Assessment GPC bacteremia (1 of 3 bottles) from 01/16 , contaminant Pancreatitis Fever likely sec to above/+- aspiration/? infection - better DENISHA Aspiration pneumonia. - Group A strep/Strep pneumo/legionella neg. Gram stain from sputum GPC in pairs from 01/12, no growth Acute encephalopathy with hallucinations and behavioral change Lactic acidosis, improved. Heavy alcohol use. Hyperglycemia. Worsening back pain with urinary incontinence prior to admission. 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
[2018-01-22] MEDS: IPRATRPIUM/ALBUTEROL 0.5/2.5MG 3 ML NEBU. NEB SCH ×4 (07:38→19:58)
[2018-01-22 08:34] LABS: HCO3 ABG 21 mmol/L (21-28); PCO2 ABG 39 mmHg (35-46); PO2 ABG 104 mmHg (75-108)
[2018-01-22 08:35] LABS: BASE EXCESS ABG -5 mmol/L (-3-3); FIO2 ABG 40 vent ps 5 peep 5; SAT O2 ABG 97 % (92-99)
[2018-01-22] MEDS: TPN PER PHARMACY MC PRN (08:39)
[2018-01-22] MEDS: MULTIVITAMIN with MINERAL TABLET. PO SCH (08:40)
[2018-01-22] MEDS: GEMFIBROZIL 600 MG TABLET. PO SCH ×2 (08:41→14:53)
[2018-01-22] MEDS: VENLAFAXINE 50 MG TABLET. PO SCH ×2 (08:41→21:00)
[2018-01-22] MEDS: tiZANidine 4 MG TABLET. PO SCH ×3 (08:41→21:00)
[2018-01-22] MEDS: METOPROLOL TART IMMED RELEASE 50 MG TABLET. PO SCH ×2 (08:42→21:00)
[2018-01-22] MEDS: amLODIPine BESYLATE 10 MG TABLET PO SCH (08:42)
[2018-01-22] MEDS: LOSARTAN POTASSIUM 25 MG TABLET. PO SCH (08:43)
[2018-01-22] MEDS: VANCOMYCIN 125 MG/2.5 ML ORAL SOLUTION. PO SCH ×4 (08:43→21:00)
[2018-01-22] MEDS: MAGNESIUM OXIDE 400 MG TABLET PO SCH (08:43)
[2018-01-22] MEDS ORDERED: NON FORMULARY ITEM (Nebivolol Hcl (Bystolic) 20 MG) PO SCH (09:00)
[2018-01-22] MEDS: hydrALAZINE 20 MG/ML VIAL. IVP PRN ×3 (09:24→16:31)
[2018-01-22] MEDS: NEO/POLYMYX/DEXAMETH OPHTH SUSPENSION 5ML BOTTLE. OD SCH ×4 (09:43→21:00)
--- NOTE | 2018-01-22 10:18 | PDOC ---
PULMONARY PROGRESS NOTES Subjective PT AWAKE AND ALERT FOLLOWS COMMANDS Vitals Vital Signs Date Time Temp Pulse Resp B/P (MAP) Pulse Ox O2 Delivery O2 Flow Rate FiO2 01/22/18 10:00 101 28 159/97 (117) 95 Ventilator 01/22/18 07:00 98.8 98.8 Lungs: Clear, Other Cardiovascular: S1, S2 Abdomen: Soft Neuro Exam: Alert Extremities: Other (1+edema) Skin: Warm Labs Laboratory Tests Test 01/20/18 10:52 01/20/18 13:07 01/20/18 14:20 01/20/18 15:32 Glucose (Fingerstick) 156 mg/dL (70-99) 104 mg/dL (70-99) 92 mg/dL (70-99) 99 mg/dL (70-99) Test 01/20/18 16:45 01/20/18 16:50 01/20/18 18:01 01/20/18 19:15 Sodium Level 152 mmol/L (136-145) Potassium Level 4.2 mmol/L (3.5-5.1) Chloride Level 117 mmol/L (98-107) Carbon Dioxide Level 23 mmol/L (21-32) Anion Gap 12 (6-14) Blood Urea Nitrogen 58 mg/dL (8-26) Creatinine 2.8 mg/dL (0.7-1.3) Estimated GFR (Cockcroft-Gault) 24.9 Glucose Level 161 mg/dL (70-99) Calcium Level 9.2 mg/dL (8.5-10.1) Phosphorus Level 4.8 mg/dL (2.6-4.7) Magnesium Level 2.0 mg/dL (1.8-2.4) Glucose (Fingerstick) 140 mg/dL (70-99) 158 mg/dL (70-99) 152 mg/dL (70-99) Test 01/20/18 20:15 01/20/18 21:17 01/20/18 21:30 01/20/18 22:20 Glucose (Fingerstick) 138 mg/dL (70-99) 153 mg/dL (70-99) Sodium Level 154 mmol/L (136-145) Clostridium difficile Toxin (PCR) Positive (Negative) Test 01/20/18 23:24 01/21/18 00:32 01/21/18 01:37 01/21/18 02:49 Glucose (Fingerstick) 178 mg/dL (70-99) 166 mg/dL (70-99) 143 mg/dL (70-99) 148 mg/dL (70-99) Test 01/21/18 04:12 01/21/18 05:24 01/21/18 05:30 01/21/18 06:28 Glucose (Fingerstick) 139 mg/dL (70-99) 143 mg/dL (70-99) 148 mg/dL (70-99) Sodium Level 156 mmol/L (136-145) Potassium Level 3.8 mmol/L (3.5-5.1) Chloride Level 119 mmol/L (98-107) Carbon Dioxide Level 22 mmol/L (21-32) Anion Gap 15 (6-14) Blood Urea Nitrogen 56 mg/dL (8-26) Creatinine 2.7 mg/dL (0.7-1.3) Estimated GFR (Cockcroft-Gault) 25.9 Glucose Level 163 mg/dL (70-99) Calcium Level 9.2 mg/dL (8.5-10.1) Phosphorus Level 4.1 mg/dL (2.6-4.7) Magnesium Level 2.1 mg/dL (1.8-2.4) Test 01/21/18 08:50 01/21/18 08:55 01/21/18 10:11 01/21/18 11:19 Sodium Level 157 mmol/L (136-145) Glucose (Fingerstick) 126 mg/dL (70-99) 132 mg/dL (70-99) 163 mg/dL (70-99) Test 01/21/18 11:40 01/21/18 12:45 01/21/18 14:09 01/21/18 15:47 O2 Saturation 98 % (92-99) Arterial Blood pH 7.33 (7.35-7.45) Arterial Blood pCO2 at Patient Temp 40 mmHg (35-46) Arterial Blood pO2 at Patient Temp 108 mmHg (75-108) Arterial Blood HCO3 21 mmol/L (21-28) Arterial Blood Base Excess -5 mmol/L (-3-3) FiO2 50 Glucose (Fingerstick) 144 mg/dL (70-99) 145 mg/dL (70-99) 162 mg/dL (70-99) Test 01/21/18 16:15 01/21/18 17:06 01/21/18 19:21 01/21/18 21:00 Glucose (Fingerstick) 179 mg/dL (70-99) 138 mg/dL (70-99) 138 mg/dL (70-99) Sodium Level 154 mmol/L (136-145) Test 01/21/18 21:47 01/21/18 22:52 01/22/18 00:03 01/22/18 01:07 Glucose (Fingerstick) 168 mg/dL (70-99) 146 mg/dL (70-99) 143 mg/dL (70-99) 161 mg/dL (70-99) Test 01/22/18 02:09 01/22/18 03:12 01/22/18 04:12 01/22/18 05:23 Glucose (Fingerstick) 147 mg/dL (70-99) 139 mg/dL (70-99) 132 mg/dL (70-99) 137 mg/dL (70-99) Test 01/22/18 05:30 01/22/18 06:37 01/22/18 08:25 01/22/18 08:47 White Blood Count 12.2 x10^3/uL (4.0-11.0) Red Blood Count 3.21 x10^6/uL (4.30-5.70) Hemoglobin 10.2 g/dL (13.0-17.5) Hematocrit 32.0 % (39.0-53.0) Mean Corpuscular Volume 100 fL (79-100) Mean Corpuscular Hemoglobin 32 pg (25-35) Mean Corpuscular Hemoglobin Concent 32 g/dL (31-37) Red Cell Distribution Width 14.7 % (11.5-14.5) Platelet Count 389 x10^3/uL (140-400) Neutrophils (%) (Auto) 72 % (31-73) Lymphocytes (%) (Auto) 19 % (24-48) Monocytes (%) (Auto) 6 % (0-9) Eosinophils (%) (Auto) 2 % (0-3) Basophils (%) (Auto) 1 % (0-3) Neutrophils # (Auto) 8.8 x10^3uL (1.8-7.7) Lymphocytes # (Auto) 2.3 x10^3/uL (1.0-4.8) Monocytes # (Auto) 0.8 x10^3/uL (0.0-1.1) Eosinophils # (Auto) 0.3 x10^3/uL (0.0-0.7) Basophils # (Auto) 0.1 x10^3/uL (0.0-0.2) Sodium Level 153 mmol/L (136-145) Potassium Level 4.2 mmol/L (3.5-5.1) Chloride Level 117 mmol/L (98-107) Carbon Dioxide Level 23 mmol/L (21-32) Anion Gap 13 (6-14) Blood Urea Nitrogen 57 mg/dL (8-26) Creatinine 2.4 mg/dL (0.7-1.3) Estimated GFR (Cockcroft-Gault) 29.7 Glucose Level 157 mg/dL (70-99) Calcium Level 9.8 mg/dL (8.5-10.1) Phosphorus Level 5.5 mg/dL (2.6-4.7) Magnesium Level 2.5 mg/dL (1.8-2.4) Glucose (Fingerstick) 135 mg/dL (70-99) 140 mg/dL (70-99) O2 Saturation 97 % (92-99) Arterial Blood pH 7.35 (7.35-7.45) Arterial Blood pCO2 at Patient Temp 39 mmHg (35-46) Arterial Blood pO2 at Patient Temp 104 mmHg (75-108) Arterial Blood HCO3 21 mmol/L (21-28) Arterial Blood Base Excess -5 mmol/L (-3-3) FiO2 40 vent ps 5 peep 5 Laboratory Tests Test 01/21/18 11:19 01/21/18 11:40 01/21/18 12:45 01/21/18 14:09 Glucose (Fingerstick) 163 mg/dL (70-99) 144 mg/dL (70-99) 145 mg/dL (70-99) O2 Saturation 98 % (92-99) Arterial Blood pH 7.33 (7.35-7.45) Arterial Blood pCO2 at Patient Temp 40 mmHg (35-46) Arterial Blood pO2 at Patient Temp 108 mmHg (75-108) Arterial Blood HCO3 21 mmol/L (21-28) Arterial Blood Base Excess -5 mmol/L (-3-3) FiO2 50 Test 01/21/18 15:47 01/21/18 16:15 01/21/18 17:06 01/21/18 19:21 Glucose (Fingerstick) 162 mg/dL (70-99) 179 mg/dL (70-99) 138 mg/dL (70-99) 138 mg/dL (70-99) Test 01/21/18 21:00 01/21/18 21:47 01/21/18 22:52 01/22/18 00:03 Sodium Level 154 mmol/L (136-145) Glucose (Fingerstick) 168 mg/dL (70-99) 146 mg/dL (70-99) 143 mg/dL (70-99) Test 01/22/18 01:07 01/22/18 02:09 01/22/18 03:12 01/22/18 04:12 Glucose (Fingerstick) 161 mg/dL (70-99) 147 mg/dL (70-99) 139 mg/dL (70-99) 132 mg/dL (70-99) Test 01/22/18 05:23 01/22/18 05:30 01/22/18 06:37 01/22/18 08:25 Glucose (Fingerstick) 137 mg/dL (70-99) 135 mg/dL (70-99) White Blood Count 12.2 x10^3/uL (4.0-11.0) Red Blood Count 3.21 x10^6/uL (4.30-5.70) Hemoglobin 10.2 g/dL (13.0-17.5) Hematocrit 32.0 % (39.0-53.0) Mean Corpuscular Volume 100 fL (79-100) Mean Corpuscular Hemoglobin 32 pg (25-35) Mean Corpuscular Hemoglobin Concent 32 g/dL (31-37) Red Cell Distribution Width 14.7 % (11.5-14.5) Platelet Count 389 x10^3/uL (140-400) Neutrophils (%) (Auto) 72 % (31-73) Lymphocytes (%) (Auto) 19 % (24-48) Monocytes (%) (Auto) 6 % (0-9) Eosinophils (%) (Auto) 2 % (0-3) Basophils (%) (Auto) 1 % (0-3) Neutrophils # (Auto) 8.8 x10^3uL (1.8-7.7) Lymphocytes # (Auto) 2.3 x10^3/uL (1.0-4.8) Monocytes # (Auto) 0.8 x10^3/uL (0.0-1.1) Eosinophils # (Auto) 0.3 x10^3/uL (0.0-0.7) Basophils # (Auto) 0.1 x10^3/uL (0.0-0.2) Sodium Level 153 mmol/L (136-145) Potassium Level 4.2 mmol/L (3.5-5.1) Chloride Level 117 mmol/L (98-107) Carbon Dioxide Level 23 mmol/L (21-32) Anion Gap 13 (6-14) Blood Urea Nitrogen 57 mg/dL (8-26) Creatinine 2.4 mg/dL (0.7-1.3) Estimated GFR (Cockcroft-Gault) 29.7 Glucose Level 157 mg/dL (70-99) Calcium Level 9.8 mg/dL (8.5-10.1) Phosphorus Level 5.5 mg/dL (2.6-4.7) Magnesium Level 2.5 mg/dL (1.8-2.4) O2 Saturation 97 % (92-99) Arterial Blood pH 7.35 (7.35-7.45) Arterial Blood pCO2 at Patient Temp 39 mmHg (35-46) Arterial Blood pO2 at Patient Temp 104 mmHg (75-108) Arterial Blood HCO3 21 mmol/L (21-28) Arterial Blood Base Excess -5 mmol/L (-3-3) FiO2 40 vent ps 5 peep 5 Test 01/22/18 08:47 Glucose (Fingerstick) 140 mg/dL (70-99) Medications Active Scripts Medications Dose Route/Sig Max Daily Dose Days Date Category [hemp botanicals] 01/12/18 Reported Maxitrol Eye Drops (Brandon/Polymyx B Sulf/Dexameth) 5 Ml Drops.susp 1 Drop OD QID 01/12/18 Reported Multivitamins (Multivitamin) 1 Each Tablet 1 Tab PO DAILY 01/12/18 Reported Magnesium (Magnesium Oxide) 400 Mg Capsule 1 Cap PO DAILY 01/12/18 Reported Calcium (Calcium Carbonate) 500 Mg Tab.chew 500 Mg PO 01/12/18 Reported Lansoprazole 30 Mg Capsule.dr 1 Cap PO DAILY 01/12/18 Reported Losartan Potassium 25 Mg Tablet 25 Mg PO DAILY 01/12/18 Reported Tizanidine Hcl 4 Mg Tablet 1 Tab PO TID 01/12/18 Reported Tramadol Hcl 50 Mg Tablet 50 Mg PO DAILY PRN 01/12/18 Reported Bystolic (Nebivolol Hcl) 20 Mg Tablet 20 Mg PO DAILY 01/12/18 Reported Cymbalta (Duloxetine Hcl) 20 Mg Capsule.dr 1 Cap PO DAILY 01/12/18 Reported Valacyclovir (Valacyclovir Hcl) 1,000 Mg Tablet 1 Tab PO DAILY 01/12/18 Reported Ibuprofen 400 Mg Tablet 400 Mg PO PRN Q6HRS PRN 09/21/15 Reported Bystolic (Nebivolol) 10 Mg Tablet 20 Mg PO DAILY 09/21/15 Reported Amlodipine Besylate 10 Mg Tablet 10 Mg PO DAILY 09/21/15 Reported Comments Impression . 1. Acute respiratory failure./ multi-factorial 2. severe encephalopathy/ delirium/ ETOH with drawl 3. Sepsis . source pancreatitis 4. alcohol withdrawal 5. alcoholic pancreatitis 6. No obvious CHF/ normal EF 7. History of alcohol abuse. Level neg. Positive for marihuana 8. Obesity? obstructive sleep apnea-hypopnea syndrome. 9. DENISHA,, better 10. Combined met/resp acidosis. improved 11. staph bacteremia Plan . DOING WELL WILL EXTUBATE FOLLOW COMMANDS SPOKE WITH MOTHER AT BEDSIDE SPEECH/ NPO OFF SEDATION d/w RN AND RT JADE VELEZ MD Jan 22, 2018 10:18
--- NOTE | 2018-01-22 10:57 | PDOC ---
Objective: Objective: D/w RN - possible extubation today. Still w/ rectal tube, started on PO vanco. Vital Signs: Vital Signs Date Time Temp Pulse Resp B/P (MAP) Pulse Ox O2 Delivery O2 Flow Rate FiO2 01/22/18 10:00 101 28 159/97 (117) 95 Ventilator 01/22/18 07:00 98.8 98.8 Labs: Laboratory Tests Test 01/21/18 11:19 01/21/18 11:40 01/21/18 12:45 01/21/18 14:09 Glucose (Fingerstick) 163 mg/dL 144 mg/dL 145 mg/dL O2 Saturation 98 % Arterial Blood pH 7.33 Arterial Blood pCO2 at Patient Temp 40 mmHg Arterial Blood pO2 at Patient Temp 108 mmHg Arterial Blood HCO3 21 mmol/L Arterial Blood Base Excess -5 mmol/L FiO2 50 Test 01/21/18 15:47 01/21/18 16:15 01/21/18 17:06 01/21/18 19:21 Glucose (Fingerstick) 162 mg/dL 179 mg/dL 138 mg/dL 138 mg/dL Test 01/21/18 21:00 01/21/18 21:47 01/21/18 22:52 01/22/18 00:03 Sodium Level 154 mmol/L Glucose (Fingerstick) 168 mg/dL 146 mg/dL 143 mg/dL Test 01/22/18 01:07 01/22/18 02:09 01/22/18 03:12 01/22/18 04:12 Glucose (Fingerstick) 161 mg/dL 147 mg/dL 139 mg/dL 132 mg/dL Test 01/22/18 05:23 01/22/18 05:30 01/22/18 06:37 01/22/18 08:25 Glucose (Fingerstick) 137 mg/dL 135 mg/dL White Blood Count 12.2 x10^3/uL Red Blood Count 3.21 x10^6/uL Hemoglobin 10.2 g/dL Hematocrit 32.0 % Mean Corpuscular Volume 100 fL Mean Corpuscular Hemoglobin 32 pg Mean Corpuscular Hemoglobin Concent 32 g/dL Red Cell Distribution Width 14.7 % Platelet Count 389 x10^3/uL Neutrophils (%) (Auto) 72 % Lymphocytes (%) (Auto) 19 % Monocytes (%) (Auto) 6 % Eosinophils (%) (Auto) 2 % Basophils (%) (Auto) 1 % Neutrophils # (Auto) 8.8 x10^3uL Lymphocytes # (Auto) 2.3 x10^3/uL Monocytes # (Auto) 0.8 x10^3/uL Eosinophils # (Auto) 0.3 x10^3/uL Basophils # (Auto) 0.1 x10^3/uL Sodium Level 153 mmol/L Potassium Level 4.2 mmol/L Chloride Level 117 mmol/L Carbon Dioxide Level 23 mmol/L Anion Gap 13 Blood Urea Nitrogen 57 mg/dL Creatinine 2.4 mg/dL Estimated GFR (Cockcroft-Gault) 29.7 Glucose Level 157 mg/dL Calcium Level 9.8 mg/dL Phosphorus Level 5.5 mg/dL Magnesium Level 2.5 mg/dL O2 Saturation 97 % Arterial Blood pH 7.35 Arterial Blood pCO2 at Patient Temp 39 mmHg Arterial Blood pO2 at Patient Temp 104 mmHg Arterial Blood HCO3 21 mmol/L Arterial Blood Base Excess -5 mmol/L FiO2 40 vent ps 5 peep 5 Test 01/22/18 08:47 Glucose (Fingerstick) 140 mg/dL PE: GEN: restless LUNGS: intubated HEART: tachycardic ABD: soft, non-tender NEURO/PSYCH: awake A/P: Resp failure DENISHA, hypernatremia, ?DI Pancreatitis C Diff -- Await possible extubation. Supportive care from GI standpoint. Vanco per ID - assume will need swallow eval, etc. MARILYN VASQUEZ Jan 22, 2018 10:57
--- NOTE | 2018-01-22 11:43 | PDOC ---
Renal-Progress Notes Subjective Notes Notes NO CHANGE History of Present Illness Hx of present illness STABLE Vitals Vitals Vital Signs Date Time Temp Pulse Resp B/P (MAP) Pulse Ox O2 Delivery O2 Flow Rate FiO2 01/22/18 11:30 98 Ventilator 01/22/18 11:00 108 31 133/71 (91) 01/22/18 07:00 98.8 98.8 Weight Weight [ ] I.O. Intake and Output Intake and Output 01/22/18 07:00 Intake Total 2955 ml Output Total 5965 ml Balance -3010 ml Intake Oral 75 ml IV Total 2880 ml Output Urine Total 5865 ml Stool Total 100 ml Labs Labs Laboratory Tests Test 01/21/18 12:45 01/21/18 14:09 01/21/18 15:47 01/21/18 16:15 Glucose (Fingerstick) 144 mg/dL (70-99) 145 mg/dL (70-99) 162 mg/dL (70-99) 179 mg/dL (70-99) Test 01/21/18 17:06 01/21/18 19:21 01/21/18 21:00 01/21/18 21:47 Glucose (Fingerstick) 138 mg/dL (70-99) 138 mg/dL (70-99) 168 mg/dL (70-99) Sodium Level 154 mmol/L (136-145) Test 01/21/18 22:52 01/22/18 00:03 01/22/18 01:07 01/22/18 02:09 Glucose (Fingerstick) 146 mg/dL (70-99) 143 mg/dL (70-99) 161 mg/dL (70-99) 147 mg/dL (70-99) Test 01/22/18 03:12 01/22/18 04:12 01/22/18 05:23 01/22/18 05:30 Glucose (Fingerstick) 139 mg/dL (70-99) 132 mg/dL (70-99) 137 mg/dL (70-99) White Blood Count 12.2 x10^3/uL (4.0-11.0) Red Blood Count 3.21 x10^6/uL (4.30-5.70) Hemoglobin 10.2 g/dL (13.0-17.5) Hematocrit 32.0 % (39.0-53.0) Mean Corpuscular Volume 100 fL (79-100) Mean Corpuscular Hemoglobin 32 pg (25-35) Mean Corpuscular Hemoglobin Concent 32 g/dL (31-37) Red Cell Distribution Width 14.7 % (11.5-14.5) Platelet Count 389 x10^3/uL (140-400) Neutrophils (%) (Auto) 72 % (31-73) Lymphocytes (%) (Auto) 19 % (24-48) Monocytes (%) (Auto) 6 % (0-9) Eosinophils (%) (Auto) 2 % (0-3) Basophils (%) (Auto) 1 % (0-3) Neutrophils # (Auto) 8.8 x10^3uL (1.8-7.7) Lymphocytes # (Auto) 2.3 x10^3/uL (1.0-4.8) Monocytes # (Auto) 0.8 x10^3/uL (0.0-1.1) Eosinophils # (Auto) 0.3 x10^3/uL (0.0-0.7) Basophils # (Auto) 0.1 x10^3/uL (0.0-0.2) Sodium Level 153 mmol/L (136-145) Potassium Level 4.2 mmol/L (3.5-5.1) Chloride Level 117 mmol/L (98-107) Carbon Dioxide Level 23 mmol/L (21-32) Anion Gap 13 (6-14) Blood Urea Nitrogen 57 mg/dL (8-26) Creatinine 2.4 mg/dL (0.7-1.3) Estimated GFR (Cockcroft-Gault) 29.7 Glucose Level 157 mg/dL (70-99) Calcium Level 9.8 mg/dL (8.5-10.1) Phosphorus Level 5.5 mg/dL (2.6-4.7) Magnesium Level 2.5 mg/dL (1.8-2.4) Test 01/22/18 06:37 01/22/18 08:25 01/22/18 08:47 01/22/18 10:55 Glucose (Fingerstick) 135 mg/dL (70-99) 140 mg/dL (70-99) O2 Saturation 97 % (92-99) Arterial Blood pH 7.35 (7.35-7.45) Arterial Blood pCO2 at Patient Temp 39 mmHg (35-46) Arterial Blood pO2 at Patient Temp 104 mmHg (75-108) Arterial Blood HCO3 21 mmol/L (21-28) Arterial Blood Base Excess -5 mmol/L (-3-3) FiO2 40 vent ps 5 peep 5 Sodium Level 153 mmol/L (136-145) Micro Micro Microbiology 01/18/18 Blood Culture - Preliminary, Resulted NO GROWTH AFTER 3 DAYS 01/13/18 Throat Culture - Final, Complete 01/13/18 - Final, Complete Review of Systems Constitutional: yes: unresponsive Physical Exam Respiratory: decreased breath sounds Heart: S1S2 Abdomen: soft, other (HYPOACTIVE) Genitourinary: monteiro catheter Extremities: pulses present, no edema Neurology: other (sedated) Assessment Assessment IMP NEPHROGENIC DI-UO STILL UP ETOH ABUSE HYPERNATREMIA DENISHA-BETTER WITH CR DOWN TO 2.4 PANCREATITIS ACUTE RESP FAILURE ASP PNEUMONIA PLAN TPN ABX DESMOPRESSIN IV CONT D5 W WILL FOLLOW SUPPORTIVE CARE RENNY KWAN MD Jan 22, 2018 11:43
--- NOTE | 2018-01-22 14:21 | PDOC ---
PROGRESS NOTES Chief Complaint Chief Complaint Acute respiratory failure ETOH intoxication versus dependence, not protecting airway hence intubated at the emergency room LLL pneumonia Sepsis likely secondary to LLL pneumonia Severe agitation, could be secondary to alcohol withdrawal versus sepsis versus others Pancreatitis - hyperglycemia with hypertriglyceridemia Elevated BNP and troponin elevation Obesity BMI 39 - poss obstructive sleep apnea-hypopnea syndrome H/o alcohol abuse H/o anxiety H/o GERD H/o hypertension History of Present Illness History of Present Illness Pt seen and examined in the ICU Discussed with RN Pt is laying in bed, sedated, intubated, and on a ventilator set at AC/26/550/40 %/PEEP 5 Aunts Dorothea and Livia at bedside Vitals Vitals Vital Signs Date Time Temp Pulse Resp B/P (MAP) Pulse Ox O2 Delivery O2 Flow Rate FiO2 01/22/18 13:40 98 Ventilator 01/22/18 13:00 89 26 149/88 (108) 01/22/18 12:00 99.9 99.9 Physical Exam Physical Exam GENERAL: sedated and intubated. HEENT: Pupils small. ETT and NGT in place. LUNGS: Diminished aeration in the bases. HEART: S1 S2 Regular rhythm. ABDOMEN: Obese. BS active, so grimace or guarding to palpation. GENITOURINARY: Indwelling Monteiro in place. EXTREMITIES: 1 plus edema or cyanosis. SKIN: He has tattoos. warm without rash NEUROLOGIC: awake, intubated RIJ - clean. General: Other (sedated on a ventilator) Heart: Regular rate, Normal S1, Normal S2 Lungs: Clear, Other (sedated, intubated, on vent) Abdomen: Soft, No masses Extremities: No clubbing, No cyanosis, No edema, Normal pulses Skin: No rashes, No breakdown Labs LABS Laboratory Tests Test 01/21/18 15:47 01/21/18 16:15 01/21/18 17:06 01/21/18 19:21 Glucose (Fingerstick) 162 mg/dL (70-99) 179 mg/dL (70-99) 138 mg/dL (70-99) 138 mg/dL (70-99) Test 01/21/18 21:00 01/21/18 21:47 01/21/18 22:52 01/22/18 00:03 Sodium Level 154 mmol/L (136-145) Glucose (Fingerstick) 168 mg/dL (70-99) 146 mg/dL (70-99) 143 mg/dL (70-99) Test 01/22/18 01:07 01/22/18 02:09 01/22/18 03:12 01/22/18 04:12 Glucose (Fingerstick) 161 mg/dL (70-99) 147 mg/dL (70-99) 139 mg/dL (70-99) 132 mg/dL (70-99) Test 01/22/18 05:23 01/22/18 05:30 01/22/18 06:37 01/22/18 08:25 Glucose (Fingerstick) 137 mg/dL (70-99) 135 mg/dL (70-99) White Blood Count 12.2 x10^3/uL (4.0-11.0) Red Blood Count 3.21 x10^6/uL (4.30-5.70) Hemoglobin 10.2 g/dL (13.0-17.5) Hematocrit 32.0 % (39.0-53.0) Mean Corpuscular Volume 100 fL (79-100) Mean Corpuscular Hemoglobin 32 pg (25-35) Mean Corpuscular Hemoglobin Concent 32 g/dL (31-37) Red Cell Distribution Width 14.7 % (11.5-14.5) Platelet Count 389 x10^3/uL (140-400) Neutrophils (%) (Auto) 72 % (31-73) Lymphocytes (%) (Auto) 19 % (24-48) Monocytes (%) (Auto) 6 % (0-9) Eosinophils (%) (Auto) 2 % (0-3) Basophils (%) (Auto) 1 % (0-3) Neutrophils # (Auto) 8.8 x10^3uL (1.8-7.7) Lymphocytes # (Auto) 2.3 x10^3/uL (1.0-4.8) Monocytes # (Auto) 0.8 x10^3/uL (0.0-1.1) Eosinophils # (Auto) 0.3 x10^3/uL (0.0-0.7) Basophils # (Auto) 0.1 x10^3/uL (0.0-0.2) Sodium Level 153 mmol/L (136-145) Potassium Level 4.2 mmol/L (3.5-5.1) Chloride Level 117 mmol/L (98-107) Carbon Dioxide Level 23 mmol/L (21-32) Anion Gap 13 (6-14) Blood Urea Nitrogen 57 mg/dL (8-26) Creatinine 2.4 mg/dL (0.7-1.3) Estimated GFR (Cockcroft-Gault) 29.7 Glucose Level 157 mg/dL (70-99) Calcium Level 9.8 mg/dL (8.5-10.1) Phosphorus Level 5.5 mg/dL (2.6-4.7) Magnesium Level 2.5 mg/dL (1.8-2.4) O2 Saturation 97 % (92-99) Arterial Blood pH 7.35 (7.35-7.45) Arterial Blood pCO2 at Patient Temp 39 mmHg (35-46) Arterial Blood pO2 at Patient Temp 104 mmHg (75-108) Arterial Blood HCO3 21 mmol/L (21-28) Arterial Blood Base Excess -5 mmol/L (-3-3) FiO2 40 vent ps 5 peep 5 Test 01/22/18 08:47 01/22/18 10:51 01/22/18 10:55 01/22/18 12:57 Glucose (Fingerstick) 140 mg/dL (70-99) 157 mg/dL (70-99) 144 mg/dL (70-99) Sodium Level 153 mmol/L (136-145) Review of Systems Review of Systems Pt sedated, intubated, on ventilator. Unable to obtain. Assessment and Plan Assessmemt and Plan Problems Medical Problems: (1) Diabetic keto-acidosis Status: Acute (2) Hyperglycemia due to type 2 diabetes mellitus Status: Acute (3) Metabolic acidemia Status: Acute (4) Metabolic encephalopathy Status: Acute Assessment: Acute respiratory failure ETOH intoxication versus dependence, not protecting airway hence intubated at the emergency room LLL pneumonia Sepsis likely secondary to LLL pneumonia Severe agitation, could be secondary to alcohol withdrawal versus sepsis versus others Pancreatitis - hyperglycemia with hypertriglyceridemia Elevated BNP and troponin elevation Obesity BMI 39 - poss obstructive sleep apnea-hypopnea syndrome H/o alcohol abuse H/o anxiety H/o GERD H/o hypertension Plan: ICU monitoring Vent weaning Alcohol withdrawal protocol Labs Home meds TPN via OG tube and insulin drip for nutrition LIS Rectal tube and monteiro cath Contact precautions for c diff Appreciate subspecialist input DVT ppx Comment Review of Relevant I have reviewed the following items franklyn (where applicable) has been applied. Labs Laboratory Tests Test 01/20/18 14:20 01/20/18 15:32 01/20/18 16:45 01/20/18 16:50 Glucose (Fingerstick) 92 mg/dL (70-99) 99 mg/dL (70-99) 140 mg/dL (70-99) Sodium Level 152 mmol/L (136-145) Potassium Level 4.2 mmol/L (3.5-5.1) Chloride Level 117 mmol/L (98-107) Carbon Dioxide Level 23 mmol/L (21-32) Anion Gap 12 (6-14) Blood Urea Nitrogen 58 mg/dL (8-26) Creatinine 2.8 mg/dL (0.7-1.3) Estimated GFR (Cockcroft-Gault) 24.9 Glucose Level 161 mg/dL (70-99) Calcium Level 9.2 mg/dL (8.5-10.1) Phosphorus Level 4.8 mg/dL (2.6-4.7) Magnesium Level 2.0 mg/dL (1.8-2.4) Test 01/20/18 18:01 01/20/18 19:15 01/20/18 20:15 01/20/18 21:17 Glucose (Fingerstick) 158 mg/dL (70-99) 152 mg/dL (70-99) 138 mg/dL (70-99) 153 mg/dL (70-99) Test 01/20/18 21:30 01/20/18 22:20 01/20/18 23:24 01/21/18 00:32 Sodium Level 154 mmol/L (136-145) Clostridium difficile Toxin (PCR) Positive (Negative) Glucose (Fingerstick) 178 mg/dL (70-99) 166 mg/dL (70-99) Test 01/21/18 01:37 01/21/18 02:49 01/21/18 04:12 01/21/18 05:24 Glucose (Fingerstick) 143 mg/dL (70-99) 148 mg/dL (70-99) 139 mg/dL (70-99) 143 mg/dL (70-99) Test 01/21/18 05:30 01/21/18 06:28 01/21/18 08:50 01/21/18 08:55 Sodium Level 156 mmol/L (136-145) 157 mmol/L (136-145) Potassium Level 3.8 mmol/L (3.5-5.1) Chloride Level 119 mmol/L (98-107) Carbon Dioxide Level 22 mmol/L (21-32) Anion Gap 15 (6-14) Blood Urea Nitrogen 56 mg/dL (8-26) Creatinine 2.7 mg/dL (0.7-1.3) Estimated GFR (Cockcroft-Gault) 25.9 Glucose Level 163 mg/dL (70-99) Calcium Level 9.2 mg/dL (8.5-10.1) Phosphorus Level 4.1 mg/dL (2.6-4.7) Magnesium Level 2.1 mg/dL (1.8-2.4) Glucose (Fingerstick) 148 mg/dL (70-99) 126 mg/dL (70-99) Test 01/21/18 10:11 01/21/18 11:19 01/21/18 11:40 01/21/18 12:45 Glucose (Fingerstick) 132 mg/dL (70-99) 163 mg/dL (70-99) 144 mg/dL (70-99) O2 Saturation 98 % (92-99) Arterial Blood pH 7.33 (7.35-7.45) Arterial Blood pCO2 at Patient Temp 40 mmHg (35-46) Arterial Blood pO2 at Patient Temp 108 mmHg (75-108) Arterial Blood HCO3 21 mmol/L (21-28) Arterial Blood Base Excess -5 mmol/L (-3-3) FiO2 50 Test 01/21/18 14:09 01/21/18 15:47 01/21/18 16:15 01/21/18 17:06 Glucose (Fingerstick) 145 mg/dL (70-99) 162 mg/dL (70-99) 179 mg/dL (70-99) 138 mg/dL (70-99) Test 01/21/18 19:21 01/21/18 21:00 01/21/18 21:47 01/21/18 22:52 Glucose (Fingerstick) 138 mg/dL (70-99) 168 mg/dL (70-99) 146 mg/dL (70-99) Sodium Level 154 mmol/L (136-145) Test 01/22/18 00:03 01/22/18 01:07 01/22/18 02:09 01/22/18 03:12 Glucose (Fingerstick) 143 mg/dL (70-99) 161 mg/dL (70-99) 147 mg/dL (70-99) 139 mg/dL (70-99) Test 01/22/18 04:12 01/22/18 05:23 01/22/18 05:30 01/22/18 06:37 Glucose (Fingerstick) 132 mg/dL (70-99) 137 mg/dL (70-99) 135 mg/dL (70-99) White Blood Count 12.2 x10^3/uL (4.0-11.0) Red Blood Count 3.21 x10^6/uL (4.30-5.70) Hemoglobin 10.2 g/dL (13.0-17.5) Hematocrit 32.0 % (39.0-53.0) Mean Corpuscular Volume 100 fL (79-100) Mean Corpuscular Hemoglobin 32 pg (25-35) Mean Corpuscular Hemoglobin Concent 32 g/dL (31-37) Red Cell Distribution Width 14.7 % (11.5-14.5) Platelet Count 389 x10^3/uL (140-400) Neutrophils (%) (Auto) 72 % (31-73) Lymphocytes (%) (Auto) 19 % (24-48) Monocytes (%) (Auto) 6 % (0-9) Eosinophils (%) (Auto) 2 % (0-3) Basophils (%) (Auto) 1 % (0-3) Neutrophils # (Auto) 8.8 x10^3uL (1.8-7.7) Lymphocytes # (Auto) 2.3 x10^3/uL (1.0-4.8) Monocytes # (Auto) 0.8 x10^3/uL (0.0-1.1) Eosinophils # (Auto) 0.3 x10^3/uL (0.0-0.7) Basophils # (Auto) 0.1 x10^3/uL (0.0-0.2) Sodium Level 153 mmol/L (136-145) Potassium Level 4.2 mmol/L (3.5-5.1) Chloride Level 117 mmol/L (98-107) Carbon Dioxide Level 23 mmol/L (21-32) Anion Gap 13 (6-14) Blood Urea Nitrogen 57 mg/dL (8-26) Creatinine 2.4 mg/dL (0.7-1.3) Estimated GFR (Cockcroft-Gault) 29.7 Glucose Level 157 mg/dL (70-99) Calcium Level 9.8 mg/dL (8.5-10.1) Phosphorus Level 5.5 mg/dL (2.6-4.7) Magnesium Level 2.5 mg/dL (1.8-2.4) Test 01/22/18 08:25 01/22/18 08:47 01/22/18 10:51 01/22/18 10:55 O2 Saturation 97 % (92-99) Arterial Blood pH 7.35 (7.35-7.45) Arterial Blood pCO2 at Patient Temp 39 mmHg (35-46) Arterial Blood pO2 at Patient Temp 104 mmHg (75-108) Arterial Blood HCO3 21 mmol/L (21-28) Arterial Blood Base Excess -5 mmol/L (-3-3) FiO2 40 vent ps 5 peep 5 Glucose (Fingerstick) 140 mg/dL (70-99) 157 mg/dL (70-99) Sodium Level 153 mmol/L (136-145) Test 01/22/18 12:57 Glucose (Fingerstick) 144 mg/dL (70-99) Laboratory Tests Test 01/21/18 15:47 01/21/18 16:15 01/21/18 17:06 01/21/18 19:21 Glucose (Fingerstick) 162 mg/dL (70-99) 179 mg/dL (70-99) 138 mg/dL (70-99) 138 mg/dL (70-99) Test 01/21/18 21:00 01/21/18 21:47 01/21/18 22:52 01/22/18 00:03 Sodium Level 154 mmol/L (136-145) Glucose (Fingerstick) 168 mg/dL (70-99) 146 mg/dL (70-99) 143 mg/dL (70-99) Test 01/22/18 01:07 01/22/18 02:09 01/22/18 03:12 01/22/18 04:12 Glucose (Fingerstick) 161 mg/dL (70-99) 147 mg/dL (70-99) 139 mg/dL (70-99) 132 mg/dL (70-99) Test 01/22/18 05:23 01/22/18 05:30 01/22/18 06:37 01/22/18 08:25 Glucose (Fingerstick) 137 mg/dL (70-99) 135 mg/dL (70-99) White Blood Count 12.2 x10^3/uL (4.0-11.0) Red Blood Count 3.21 x10^6/uL (4.30-5.70) Hemoglobin 10.2 g/dL (13.0-17.5) Hematocrit 32.0 % (39.0-53.0) Mean Corpuscular Volume 100 fL (79-100) Mean Corpuscular Hemoglobin 32 pg (25-35) Mean Corpuscular Hemoglobin Concent 32 g/dL (31-37) Red Cell Distribution Width 14.7 % (11.5-14.5) Platelet Count 389 x10^3/uL (140-400) Neutrophils (%) (Auto) 72 % (31-73) Lymphocytes (%) (Auto) 19 % (24-48) Monocytes (%) (Auto) 6 % (0-9) Eosinophils (%) (Auto) 2 % (0-3) Basophils (%) (Auto) 1 % (0-3) Neutrophils # (Auto) 8.8 x10^3uL (1.8-7.7) Lymphocytes # (Auto) 2.3 x10^3/uL (1.0-4.8) Monocytes # (Auto) 0.8 x10^3/uL (0.0-1.1) Eosinophils # (Auto) 0.3 x10^3/uL (0.0-0.7) Basophils # (Auto) 0.1 x10^3/uL (0.0-0.2) Sodium Level 153 mmol/L (136-145) Potassium Level 4.2 mmol/L (3.5-5.1) Chloride Level 117 mmol/L (98-107) Carbon Dioxide Level 23 mmol/L (21-32) Anion Gap 13 (6-14) Blood Urea Nitrogen 57 mg/dL (8-26) Creatinine 2.4 mg/dL (0.7-1.3) Estimated GFR (Cockcroft-Gault) 29.7 Glucose Level 157 mg/dL (70-99) Calcium Level 9.8 mg/dL (8.5-10.1) Phosphorus Level 5.5 mg/dL (2.6-4.7) Magnesium Level 2.5 mg/dL (1.8-2.4) O2 Saturation 97 % (92-99) Arterial Blood pH 7.35 (7.35-7.45) Arterial Blood pCO2 at Patient Temp 39 mmHg (35-46) Arterial Blood pO2 at Patient Temp 104 mmHg (75-108) Arterial Blood HCO3 21 mmol/L (21-28) Arterial Blood Base Excess -5 mmol/L (-3-3) FiO2 40 vent ps 5 peep 5 Test 01/22/18 08:47 01/22/18 10:51 01/22/18 10:55 01/22/18 12:57 Glucose (Fingerstick) 140 mg/dL (70-99) 157 mg/dL (70-99) 144 mg/dL (70-99) Sodium Level 153 mmol/L (136-145) Microbiology 01/18/18 Blood Culture - Preliminary, Resulted NO GROWTH AFTER 3 DAYS 01/13/18 Throat Culture - Final, Complete 01/13/18 - Final, Complete Medications Current Medications Lorazepam (Ativan) 1 mg 1X ONCE IV Last administered on 01/11/18at 12:25; Start 01/11/18 at 12:30; Stop 01/11/18 at 12:31; Status DC Lorazepam (Ativan) 2 mg 1X ONCE IV Last administered on 01/11/18at 13:03; Start 01/11/18 at 12:45; Stop 01/11/18 at 12:46; Status DC Dextrose/Sodium Chloride 1,000 ml @ 0 mls/hr 1X ONCE IV ; Start 01/11/18 at 13:00; Stop 01/11/18 at 13:16; Status DC Sodium Chloride 1,000 ml @ 1,000 mls/hr 1X ONCE IV Last administered on 01/11at 13:41; Start 01/11/18 at 13:30; Stop 01/11/18 at 14:29; Status DC Sodium Chloride 1,000 ml @ 1,000 mls/hr 1X ONCE IV Last administered on 01/11at 13:42; Start 01/11/18 at 13:30; Stop 01/11/18 at 14:29; Status DC Lorazepam (Ativan) 1 mg 1X ONCE IV Last administered on 01/11/18at 15:08; Start 01/11/18 at 13:30; Stop 01/11/18 at 13:31; Status DC Lorazepam (Ativan) 1 mg 1X ONCE IV Last administered on 01/11/18at 13:43; Start 01/11/18 at 13:30; Stop 01/11/18 at 13:33; Status DC Aspirin (Children'S Aspirin) 324 mg 1X ONCE PO Last administered on at 14:02; Start 01/11/18 at 13:45; Stop 01/11/18 at 13:46; Status DC Haloperidol Lactate (Haldol Inj) 5 mg PRN Q6HRS PRN IVP SEVERE AGITATION Last administered on 01/21/18at 00:53; Start 01/11/18 at 16:15 Lorazepam (Ativan) 4 mg PRN Q4HRS PRN IV ANXIETY / AGITATION Last administered on 01/21/18at 01:33; Start 01/11/18 at 16:15 Multivitamins 10 ml/Thiamine HCl 100 mg/Folic Acid 1 mg/Sodium Chloride 1,011.2 ml @ 125 mls/ hr DAILY IV Last administered on 01/14/18at 08:19; Start at 17:00; Stop 01/14/18 at 21:59; Status DC Dexmedetomidine HCl 200 mcg/ Sodium Chloride 50 ml @ 0 mls/hr CONT PRN IV PER PROTOCOL Last administered on 01/11/18at 17:00; Start 01/11/18 at 16:45; Stop 01/11/18 at 18:38; Status DC Sodium Chloride 500 ml @ 500 mls/hr 1X PRN PRN IV SEE COMMENTS; Start at 16:45 Atropine Sulfate (ATROPINE 0.5mg SYRINGE) 0.5 mg PRN Q5MIN PRN IV SEE COMMENTS ; Start 01/11/18 at 16:45 Lorazepam (Ativan) 4 mg PRN Q1HR PRN PO For CIWA 8-14; Start 01/11/18 at 18:15 Lorazepam (Ativan) 8 mg PRN Q1HR PRN PO For CIWA 15 or greater; Start at 18:15 Lorazepam (Ativan) 2 mg PRN Q1HR PRN IV For CIWA 8-14; Start 01/11/18 at 18:15 Lorazepam (Ativan) 4 mg PRN Q1HR PRN IV For CIWA 15 or greater Last administered on 01/15/18at 23:04; Start 01/11/18 at 18:15 Diphenhydramine HCl (Benadryl) 25 mg PRN Q15MIN PRN IVP EPS symptoms 2'Haldol admin; Start 01/11/18 at 18:15 Olanzapine (ZyPREXA IM) 10 mg 1X ONCE IM Last administered on 01/11/18at 18:42 ; Start 01/11/18 at 18:45; Stop 01/11/18 at 18:46; Status DC Dexmedetomidine HCl 200 mcg/ Sodium Chloride 50 ml @ 7 mls/hr CONT PRN IV PER PROTOCOL; Start 01/11/18 at 18:38; Stop 01/11/18 at 21:19; Status DC Propofol 100 ml @ As Directed STK-MED ONCE IV ; Start 01/11/18 at 18:43; Stop 01/11/18 at 18:44; Status DC Succinylcholine Chloride (Anectine) 200 mg STK-MED ONCE .ROUTE ; Start at 18:44; Stop 01/11/18 at 18:45; Status DC Fentanyl Citrate 30 ml @ 2.5 mls/hr CONT PRN IV PER PROTOCOL Last administered on 01/22/18at 04:09; Start 01/11/18 at 19:00 Propofol 100 ml @ 4.2 mls/hr CONT PRN IV PER PROTOCOL; Start 01/11/18 at 18: 45; Status Cancel Fentanyl Citrate (Fentanyl 2ml Vial) 25 mcg PRN Q1HR PRN IV SEE COMMENTS.; Start 01/11/18 at 18:45; Stop 01/21/18 at 08:42; Status DC Fentanyl Citrate (Fentanyl 2ml Vial) 50 mcg PRN Q1HR PRN IV SEE COMMENTS. Last administered on 01/11/18at 20:21; Start 01/11/18 at 18:45; Stop 01/21/18 at 08 :42; Status DC Morphine Sulfate (Morphine Sulfate) 2 mg PRN Q1HR PRN IV SEE COMMENTS. Last administered on 01/21/18at 15:49; Start 01/11/18 at 18:45 Morphine Sulfate (Morphine Sulfate) 4 mg PRN Q1HR PRN IV SEE COMMENTS.; Start 01/11/18 at 18:45 Hydromorphone HCl (Dilaudid) 0.2 mg PRN Q1HR PRN IV SEE COMMENTS.; Start 01/11 at 18:45; Stop 01/21/18 at 14:40; Status DC Hydromorphone HCl (Dilaudid) 0.4 mg PRN Q1HR PRN IV SEE COMMENTS.; Start 01/11 at 18:45; Stop 01/21/18 at 14:41; Status DC Morphine Sulfate (Morphine Sulfate) 2 mg PRN Q1HR PRN IV ; Start 01/11/18 at 18:45; Status UNV Morphine Sulfate (Morphine Sulfate) 4 mg PRN Q1HR PRN IV ; Start 01/11/18 at 18:45; Status UNV Midazolam HCl 100 ml @ 1 mls/hr CONT PRN IV PER PROTOCOL Last administered on 01/16/18at 04:52; Start 01/11/18 at 18:45; Stop 01/16/18 at 09:52; Status DC Epinephrine HCl (EPINEPHrine SYRINGE) 1 mg STK-MED ONCE .ROUTE ; Start at 18:56; Stop 01/11/18 at 18:57; Status DC Propofol 100 ml @ 2.103 mls/ hr CONT PRN IV SEE I/O RECORD Last administered on 01/11/18at 20:23; Start 01/11/18 at 19:00 Vecuronium [place] (Norcuron Bolus) 10 mg STK-MED ONCE IV ; Start 01/11/18 at 19:02; Stop 01/11/18 at 19:03; Status DC Vancomycin HCl (Vanco Per Pharmacy) 1 each PRN DAILY PRN MC SEE COMMENTS Last administered on 01/12/18at 11:47; Start 01/11/18 at 20:15; Stop 01/12/18 at 13 :14; Status DC Piperacillin Sod/ Tazobactam Sod (Zosyn Per Pharmacy) 1 each PRN DAILY PRN MC SEE COMMENTS; Start 01/11/18 at 20:15; Stop 01/13/18 at 08:00; Status DC Piperacillin Sod/ Tazobactam Sod 4.5 gm/Sodium Chloride 100 ml @ 200 mls/hr Q6HRS IV Last administered on 01/13/18at 06:48; Start 01/12/18 at 00:00; Stop 01/13/18 at 07:57; Status DC Vancomycin HCl 2 gm/Sodium Chloride 500 ml @ 250 mls/hr 1X ONCE IV Last administered on 01/11/18at 21:00; Start 01/11/18 at 21:00; Stop 01/11/18 at 22 :59; Status DC Insulin Human Lispro (HumaLOG) 0-7 UNITS Q6HRS SQ Last administered on at 16:18; Start 01/12/18 at 00:00 Dextrose (Dextrose 50%-Water Syringe) 12.5 gm PRN Q15MIN PRN IV SEE COMMENTS; Start 01/11/18 at 21:00 Sodium Chloride 1,000 ml @ 100 mls/hr Q10H IV Last administered on 01/16/18at 03:59; Start 01/11/18 at 21:00; Stop 01/16/18 at 09:47; Status DC Dexmedetomidine HCl 200 mcg/ Sodium Chloride 50 ml @ 0 mls/hr CONT PRN IV PER PROTOCOL Last administered on 01/22/18at 11:48; Start 01/11/18 at 21:00 Acetaminophen (Tylenol) 650 mg PRN Q6HRS PRN PEG MILD PAIN / TEMP Last administered on 01/21/18at 14:39; Start 01/11/18 at 21:30 Magnesium Sulfate 50 ml @ 25 mls/hr 1X ONCE IV Last administered on at 01:27; Start 01/12/18 at 01:00; Stop 01/12/18 at 02:59; Status DC Sodium Chloride 1,000 ml @ 1,000 mls/hr 1X ONCE IV Last administered on 01/12at 01:00; Start 01/12/18 at 04:30; Stop 01/12/18 at 05:29; Status DC Vancomycin HCl 1.5 gm/Sodium Chloride 500 ml @ 250 mls/hr Q12H IV Last administered on 01/12/18at 08:44; Start 01/12/18 at 09:00; Stop 01/12/18 at 13 :14; Status DC Vancomycin HCl (Vancomycin Trough Level) 1 each 1X ONCE MC ; Start 01/12/18 at 20:30; Stop 01/12/18 at 20:30; Status DC Sodium Chloride 500 ml @ 500 mls/hr 1X ONCE IV Last administered on at 07:26; Start 01/12/18 at 07:00; Stop 01/12/18 at 07:59; Status DC Famotidine (Pepcid Vial) 20 mg BID IVP Last administered on 01/13/18at 20:49; Start 01/12/18 at 09:00; Stop 01/14/18 at 09:40; Status DC Albuterol/ Ipratropium (Duoneb) 3 ml RTQID NEB Last administered on 01/22/18at 11:30; Start 01/12/18 at 08:00 Heparin Sodium (Porcine) (Heparin Sodium) 5,000 unit Q8HRS SQ Last administered on 01/22/18at 14:09; Start 01/12/18 at 14:00 Gemfibrozil (Lopid) 600 mg BIDBFRMEAL PO Last administered on 01/22/18at 08:41 ; Start 01/12/18 at 10:00 Linezolid/Dextrose 300 ml @ 300 mls/hr Q12HR IV Last administered on at 08:39; Start 01/12/18 at 21:00; Stop 01/15/18 at 12:06; Status DC Vecuronium [place] (Norcuron Bolus) 10 mg STK-MED ONCE IV ; Start 01/11/18 at 19:00; Stop 01/13/18 at 07:59; Status DC Succinylcholine Chloride (Anectine) 200 mg STK-MED ONCE .ROUTE ; Start at 19:00; Stop 01/13/18 at 07:59; Status DC Propofol (Diprivan) 1,000 mg STK-MED ONCE IV ; Start 01/11/18 at 19:00; Stop 01/13/18 at 07:59; Status DC Epinephrine HCl (EPINEPHrine SYRINGE) 1 mg STK-MED ONCE .ROUTE ; Start at 19:00; Stop 01/13/18 at 07:59; Status DC Piperacillin Sod/ Tazobactam Sod 2.25 gm/Sodium Chloride 50 ml @ 100 mls/hr Q8HRS IV Last administered on 01/16/18at 05:59; Start 01/13/18 at 14:00; Stop 01/16/18 at 07:31; Status DC Doxycycline Hyclate 100 mg/ Dextrose 100 ml @ 50 mls/hr Q12HR IV Last administered on 01/20/18at 21:30; Start 01/13/18 at 09:00; Stop 01/21/18 at 07 :51; Status DC Sodium Bicarbonate (Sodium Bicarb Adult 8.4% Syr) 100 meq 1X ONCE IV Last administered on 01/13/18at 09:12; Start 01/13/18 at 09:15; Stop 01/13/18 at 09 :16; Status DC Sodium Chloride 1,000 ml @ 1,000 mls/hr Q1H IV ; Start 01/13/18 at 12:30; Status Cancel Sodium Chloride 1,000 ml @ 1,000 mls/hr 1X ONCE IV Last administered on 01/13at 12:15; Start 01/13/18 at 12:15; Stop 01/13/18 at 13:14; Status DC Vecuronium [place] (Norcuron Bolus) 6 mg PRN Q6HRS PRN IV VENT ASYNCHRONY Last administered on 01/15/18at 10:23; Start 01/13/18 at 12:30; Stop 01/15/18 at 14 :51; Status DC Info (Tpn Per Pharmacy) 1 each PRN DAILY PRN MC SEE COMMENTS Last administered on 01/22/18at 08:39; Start 01/14/18 at 09:45 Famotidine (Pepcid Vial) 20 mg DAILY IVP Last administered on 01/21/18at 08:46 ; Start 01/15/18 at 09:00; Stop 01/21/18 at 13:58; Status DC Sodium Bicarbonate (Sodium Bicarb Adult 8.4% Syr) 50 meq STK-MED ONCE .ROUTE ; Start 01/14/18 at 11:12; Stop 01/14/18 at 11:13; Status DC Labetalol HCl (Normodyne Iv Push) 10 mg PRN Q4HRS PRN IVP HYPERTENSION, SEE COMMENTS Last administered on 01/17/18at 10:39; Start 01/14/18 at 11:30; Stop 01/21/18 at 01:57; Status DC Sodium Bicarbonate (Sodium Bicarb Adult 8.4% Syr) 100 meq 1X ONCE IV Last administered on 01/14/18at 11:34; Start 01/14/18 at 11:30; Stop 01/14/18 at 11 :31; Status DC Sodium Chloride 45 meq/Sodium Acetate 45 meq/ Potassium Chloride 30 meq/ Potassium Phosphate 6.8 mmol/Magnesium Sulfate 10 meq/ Calcium Gluconate 10 meq / Multivitamins 10 ml/Chromium/ Copper/Manganese/ Seleni/Zn 1 ml/ Thiamine HCl 100 mg/Folic Acid 1 mg/Total Julieta... 1,512 ml @ 63 mls/hr TPN CONT IV Last administered on 01/14/18at 21:37; Start 01/14/18 at 22:00; Stop 01/15/18 at 21:59; Status DC Labetalol HCl (Normodyne Iv Push) 20 mg PRN Q2HR PRN IVP HYPERTENSION, SEE COMMENTS Last administered on 01/21/18at 02:09; Start 01/14/18 at 15:30 Multivitamins 10 ml/Thiamine HCl 100 mg/Folic Acid 1 mg/Sodium Chloride 1,011.2 ml @ 1,000.088 mls/hr 1X ONCE IV ; Start 01/15/18 at 08:15; Stop 01/15/18 at 09:15; Status UNV Sodium Chloride 1,000 ml @ 1,000 mls/hr Q1H PRN IV hypotension; Start at 09:06; Stop 01/15/18 at 09:32; Status DC Albumin Human 200 ml @ 200 mls/hr 1X ONCE IV ; Start 01/15/18 at 09:15; Stop 01/15/18 at 09:32; Status DC Acetaminophen (Tylenol) 500 mg 1X PRN PRN PO MILD PAIN / TEMP; Start 01/15/18 at 09:15; Stop 01/15/18 at 09:32; Status DC Diphenhydramine HCl (Benadryl) 25 mg 1X PRN PRN IV ITCHING; Start 01/15/18 at 09:15; Stop 01/15/18 at 09:32; Status DC Pharmacy Consult (C.diff Med Screen By Rx) 1 each PRN 1X PRN MC SEE COMMENTS; Start 01/15/18 at 09:30; Status Cancel Sodium Chloride 1,000 ml @ 400 mls/hr Q2H30M PRN IV PATENCY; Start 01/15/18 at 09:06; Stop 01/15/18 at 09:32; Status DC Info (PHARMACY MONITORING -- do not chart) 1 each PRN DAILY PRN MC SEE COMMENTS ; Start 01/15/18 at 09:15; Stop 01/21/18 at 14:04; Status DC Sodium Acetate 75 meq/Potassium Chloride 30 meq/ Potassium Phosphate 6.8 mmol/ Magnesium Sulfate 13 meq/ Calcium Gluconate 10 meq/ Multivitamins 10 ml/Chromium / Copper/Manganese/ Seleni/Zn 1 ml/ Thiamine HCl 100 mg/Folic Acid 1 mg/Total Parenteral Nutrition/Amino Acids/Dextro... 1,492 ml @ 62.167 mls/ hr TPN CONT IV ; Start 01/15/18 at 22:00; Stop 01/15/18 at 22:00; Status DC Sodium Acetate 75 meq/Potassium Chloride 30 meq/ Potassium Phosphate 6.8 mmol/ Magnesium Sulfate 13 meq/ Calcium Gluconate 10 meq/ Multivitamins 10 ml/Chromium / Copper/Manganese/ Seleni/Zn 1 ml/ Thiamine HCl 100 mg/Folic Acid 1 mg/Total Parenteral Nutrition/Amino Acids/Dextro... 1,512 ml @ 63 mls/hr TPN CONT IV Last administered on 01/15/18at 22:07; Start 01/15/18 at 22:00; Stop 01/16/18 at 21:59; Status DC Vecuronium [place] (Norcuron Bolus) 6 mg PRN Q4HRS PRN IV VENT ASYNCHRONY Last administered on 01/21/18at 02:08; Start 01/15/18 at 15:00 Meropenem 500 mg/ Sodium Chloride 50 ml @ 100 mls/hr Q12HR IV Last administered on 01/21/18at 08:46; Start 01/16/18 at 08:00; Stop 01/21/18 at 14 :03; Status DC Metronidazole 100 ml @ 100 mls/hr Q8HRS IV Last administered on 01/21/18at 14: 42; Start 01/16/18 at 08:00; Stop 01/21/18 at 16:23; Status DC Chlorhexidine Gluconate (Peridex) 15 ml BID MM ; Start 01/16/18 at 21:00; Status Cancel Dextrose/Sodium Chloride 1,000 ml @ 50 mls/hr Q20H IV ; Start 01/16/18 at 10: 00; Stop 01/17/18 at 13:11; Status DC Lorazepam 100 mg/ Sodium Chloride 100 ml @ 2 mls/hr CONT PRN IV SEE PROTOCOL Last administered on 01/21/18at 02:22; Start 01/16/18 at 09:45 Potassium Acetate 30 meq/Potassium Phosphate 3.4 mmol/Magnesium Sulfate 15 meq/ Calcium Gluconate 10 meq/ Multivitamins 10 ml/Chromium/ Copper/Manganese/ Seleni /Zn 1 ml/ Thiamine HCl 100 mg/Folic Acid 1 mg/Total Parenteral Nutrition/Amino Acids/Dextrose 1,512 ml @ 63 mls/hr TPN CONT IV Last administered on at 21:52; Start 01/16/18 at 22:00; Stop 01/17/18 at 21:59; Status DC Hydralazine HCl (Apresoline Inj) 20 mg PRN TID PRN IVP SBP>160 2ND CHOICE Last administered on 01/22/18at 09:44; Start 01/16/18 at 15:30 Nicardipine HCl 50 mg/Sodium Chloride 270 ml @ 27 mls/hr CONT PRN IV SEE I/O RECORD Last administered on 01/21/18at 03:18; Start 01/16/18 at 16:30 Dextrose 500 ml @ 500 mls/hr 1X ONCE IV ; Start 01/17/18 at 07:30; Stop at 10:53; Status DC Insulin Glargine (Lantus) 10 units QHS SQ ; Start 01/17/18 at 21:00; Status Cancel Insulin Glargine (Lantus) 10 units DAILY10 SQ Last administered on 01/18/18at 11:12; Start 01/17/18 at 10:00; Stop 01/18/18 at 16:41; Status DC Dextrose 1,000 ml @ 75 mls/hr [id number] IV Last administered on 01/20/18at 04:25 ; Start 01/17/18 at 11:00; Stop 01/20/18 at 15:40; Status DC Potassium Acetate 30 meq/Potassium Phosphate 3.4 mmol/Magnesium Sulfate 18 meq/ Calcium Gluconate 10 meq/ Multivitamins 10 ml/Chromium/ Copper/Manganese/ Seleni /Zn 1 ml/ Thiamine HCl 100 mg/Folic Acid 1 mg/Total Parenteral Nutrition/Amino Acids/Dextrose 1,728 ml @ 72 mls/hr TPN CONT IV Last administered on at 21:25; Start 01/17/18 at 22:00; Stop 01/18/18 at 21:59; Status DC Vecuronium [place] 100 mg/ Dextrose 100 ml @ 7.89 mls/hr CONT PRN IV SEE I/O RECORD; Start 01/17/18 at 19:45; Status Cancel Vecuronium [place] 100 mg/ Miscellaneous 100 ml @ 7.89 mls/hr CONT PRN IV SEE I/O RECORD Last administered on 01/18/18at 22:55; Start 01/17/18 at 19:45 Insulin Human Lispro (HumaLOG) 10 units 1X ONCE SQ ; Start 01/18/18 at 06:30; Stop 01/18/18 at 06:31; Status DC Insulin Human Lispro (HumaLOG) 8 units Q4HRS SQ Last administered on at 12:28; Start 01/18/18 at 08:30; Stop 01/18/18 at 16:32; Status DC Magnesium Sulfate 50 ml @ 25 mls/hr PRN DAILY PRN IV for mag < 1.7 on am labs Last administered on 01/18/18at 11:44; Start 01/18/18 at 11:00 Desmopressin Acetate (Ddavp) 4 mcg BID SQ Last administered on 01/18/18at 21:38 ; Start 01/18/18 at 11:30; Stop 01/18/18 at 21:01; Status DC Magnesium Sulfate/ Dextrose 100 ml @ 100 mls/hr 1X ONCE IV Last administered on 01/18/18at 11:49; Start 01/18/18 at 11:30; Stop 01/18/18 at 12:29; Status DC Potassium Acetate 30 meq/Magnesium Sulfate 25 meq/ Calcium Gluconate 10 meq/ Multivitamins 10 ml/Chromium/ Copper/Manganese/ Seleni/Zn 1 ml/ Thiamine HCl 100 mg/Folic Acid 1 mg/Total Parenteral Nutrition/Amino Acids/Dextrose/ Fat Emulsion Intravenous 3,000 ml @ 125 mls/hr TPN CONT IV Last administered on 01/18/18at 21:50; Start 01/18/18 at 22:00; Stop 01/19/18 at 21:59; Status DC Daptomycin 780 mg/ Sodium Chloride 50 ml @ 100 mls/hr Q48H IV Last administered on 01/20/18at 14:25; Start 01/18/18 at 15:30; Stop 01/21/18 at 07 :51; Status DC Insulin Human Regular 150 unit/ Sodium Chloride 151.5 ml @ 0 mls/hr CONT PRN IV SEE I/O RECORD Last administered on 01/21/18at 15:43; Start 01/18/18 at 16: 30 Dextrose (Dextrose 50%-Water Syringe) 12.5 gm PRN Q15MIN PRN IV LOW BLOOD SUGAR ; Start 01/18/18 at 16:30; Status UNV Norepinephrine Bitartrate 250 ml @ 1.875 mls/ hr CONT PRN IV SEE I/O RECORD; Start 01/18/18 at 16:30 Desmopressin Acetate (Ddavp) 6 mcg BID SQ Last administered on 01/20/18at 21:00 ; Start 01/19/18 at 12:30; Stop 01/21/18 at 10:41; Status DC Info (Icu Electrolyte Protocol) 1 ea CONT PRN PRN MC PER PROTOCOL; Start 01/19 at 12:30 Potassium Acetate 60 meq/Magnesium Sulfate 25 meq/ Calcium Gluconate 10 meq/ Multivitamins 10 ml/Chromium/ Copper/Manganese/ Seleni/Zn 1 ml/ Thiamine HCl 100 mg/Folic Acid 1 mg/Total Parenteral Nutrition/Amino Acids/Dextrose/ Fat Emulsion Intravenous 3,000 ml @ 125 mls/hr TPN CONT IV Last administered on 01/19/18at 21:58; Start 01/19/18 at 22:00; Stop 01/20/18 at 21:59; Status DC Potassium Chloride/Water 50 ml @ 50 mls/hr Q1H IV Last administered on at 19:24; Start 01/19/18 at 18:00; Stop 01/19/18 at 19:59; Status DC Potassium Chloride/Water 50 ml @ 50 mls/hr Q1H IV ; Start 01/19/18 at 17:15; Stop 01/19/18 at 21:14; Status UNV Potassium Chloride/Water 50 ml @ 50 mls/hr Q1HR IV ; Start 01/19/18 at 18:00; Stop 01/19/18 at 23:59; Status UNV Lidocaine/Sodium Bicarbonate (Buffered Lidocaine 1%) 6 ml 1X ONCE INJ ; Start 01/20/18 at 07:45; Stop 01/20/18 at 07:47; Status DC Potassium Acetate 60 meq/Magnesium Sulfate 25 meq/ Calcium Gluconate 10 meq/ Multivitamins 10 ml/Chromium/ Copper/Manganese/ Seleni/Zn 1 ml/ Thiamine HCl 100 mg/Folic Acid 1 mg/Total Parenteral Nutrition/Amino Acids/Dextrose 3,000 ml @ 125 mls/hr TPN CONT IV Last administered on 01/20/18at 21:54; Start at 22:00; Stop 01/21/18 at 21:59; Status DC Sodium Chloride 1,000 ml @ 75 mls/hr [id number] IV Last administered on at 08:46; Start 01/20/18 at 15:45; Stop 01/21/18 at 10:41; Status DC Dextrose 1,000 ml @ 75 mls/hr [id number] IV Last administered on 01/22/18at 00:08 ; Start 01/21/18 at 10:45 Desmopressin Acetate 6 mcg/ Sodium Chloride 51.5 ml @ 102 mls/hr 1X ONCE IV Last administered on 01/21/18at 11:00; Start 01/21/18 at 11:00; Stop 01/21/18 at 11:30; Status DC Potassium Acetate 60 meq/Magnesium Sulfate 25 meq/ Calcium Gluconate 10 meq/ Multivitamins 10 ml/Chromium/ Copper/Manganese/ Seleni/Zn 1 ml/ Thiamine HCl 100 mg/Folic Acid 1 mg/Total Parenteral Nutrition/Amino Acids/Dextrose/ Fat Emulsion Intravenous 3,000 ml @ 125 mls/hr TPN CONT IV ; Start 01/21/18 at 22 :00; Stop 01/21/18 at 22:00; Status DC Tramadol HCl (Ultram) 50 mg DAILY PRN PO PAIN; Start 01/21/18 at 12:00 Venlafaxine HCl (Effexor) 50 mg BID PO Last administered on 01/22/18 08:41; Start 01/21/18 at 14:00 Amlodipine Besylate (Norvasc) 10 mg DAILY PO Last administered on 01/22/18at 08 :42; Start 01/21/18 at 14:00 Ibuprofen (Motrin) 400 mg PRN Q6HRS PRN PO INFLAMMATION; Start 01/21/18 at 13: 45 Losartan Potassium (Cozaar) 25 mg DAILY PO Last administered on 01/22/18at 08: 43; Start 01/21/18 at 14:00 Neomycin/ Polymyxin/ Dexamethasone (Maxitrol) 1 drop QID OD Last administered on 01/22/18at 14:07; Start 01/21/18 at 17:00 Pantoprazole Sodium (Protonix) 40 mg DAILYAC PO ; Start 01/22/18 at 07:30 Magnesium Oxide (Magnesium Oxide) 400 mg DAILY PO Last administered on at 08:43; Start 01/22/18 at 09:00 Multivitamins (Thera M Plus) 1 tab DAILY PO Last administered on 01/22/18at 08: 40; Start 01/22/18 at 09:00 Non-Formulary Medication (Nebivolol Hcl (Bystolic)) 20 mg DAILY PO ; Start at 09:00; Status UNV Metoprolol Tartrate (Lopressor) 50 mg BID PO Last administered on 01/22/18at 08 :42; Start 01/21/18 at 14:00 Tizanidine HCl (Zanaflex) 4 mg TID PO Last administered on 01/22/18at 14:00; Start 01/21/18 at 14:00 Meropenem 500 mg/ Sodium Chloride 50 ml @ 100 mls/hr Q8HRS IV ; Start at 14:30; Stop 01/21/18 at 16:22; Status DC Vancomycin HCl (Vancomycin Oral Solution) 125 mg [id number] PO Last administered on 01/22/18at 14:11; Start 01/21/18 at 17:00 Potassium Acetate 60 meq/Magnesium Sulfate 25 meq/ Calcium Gluconate 10 meq/ Multivitamins 10 ml/Chromium/ Copper/Manganese/ Seleni/Zn 1 ml/ Thiamine HCl 100 mg/Folic Acid 1 mg/Total Parenteral Nutrition/Amino Acids/Dextrose 3,000 ml @ 125 mls/hr TPN CONT IV Last administered on 01/21/18at 22:22; Start at 22:00; Stop 01/22/18 at 21:59 Potassium Acetate 60 meq/Magnesium Sulfate 15 meq/ Calcium Gluconate 10 meq/ Multivitamins 10 ml/Chromium/ Copper/Manganese/ Seleni/Zn 1 ml/ Thiamine HCl 100 mg/Folic Acid 1 mg/Total Parenteral Nutrition/Amino Acids/Dextrose 3,000 ml @ 125 mls/hr TPN CONT IV ; Start 01/22/18 at 22:00; Stop 01/23/18 at 21:59 Active Scripts Active Reported [[facility]] Maxitrol Eye Drops (Brandon/Polymyx B Sulf/Dexameth) 5 Ml Drops.susp 1 Drop OD QID Multivitamins (Multivitamin) 1 Each Tablet 1 Tab PO DAILY Magnesium (Magnesium Oxide) 400 Mg Capsule 1 Cap PO DAILY Calcium (Calcium Carbonate) 500 Mg Tab.chew 500 Mg PO Lansoprazole 30 Mg Capsule.dr 1 Cap PO DAILY Losartan Potassium 25 Mg Tablet 25 Mg PO DAILY Tizanidine Hcl 4 Mg Tablet 1 Tab PO TID Tramadol Hcl 50 Mg Tablet 50 Mg PO DAILY PRN Bystolic (Nebivolol Hcl) 20 Mg Tablet 20 Mg PO DAILY Cymbalta (Duloxetine Hcl) 20 Mg Capsule.dr 1 Cap PO DAILY Valacyclovir (Valacyclovir Hcl) 1,000 Mg Tablet 1 Tab PO DAILY Ibuprofen 400 Mg Tablet 400 Mg PO PRN Q6HRS PRN Bystolic (Nebivolol) 10 Mg Tablet 20 Mg PO DAILY Amlodipine Besylate 10 Mg Tablet 10 Mg PO DAILY Vitals/I & O Vital Sign - Last 24 Hours 01/21/18 01/21/18 01/21/18 01/21/18 14:40 14:40 14:41 15:00 Temp 101.2 101.2 Pulse 105 106 106 111 Resp 26 B/P (MAP) 206/112 206/112 206/112 196/103 (134) Pulse Ox 99 O2 Delivery Ventilator 01/21/18 01/21/18 01/21/18 01/21/18 15:26 15:42 15:49 16:00 Pulse 96 Resp 20 B/P (MAP) 203/112 Pulse Ox 99 99 O2 Delivery Ventilator Ventilator Mechanical Ventilator 01/21/18 01/21/18 01/21/18 10/23/18 16:00 16:38 16:44 17:00 Pulse 99 94 Resp 26 B/P (MAP) 151/81 (104) 144/54 (84) Pulse Ox 100 99 99 98 O2 Delivery Ventilator Ventilator 01/21/18 01/21/18 01/21/18 01/21/18 17:01 18:00 19:00 19:20 Temp 99.9 99.9 Pulse 90 88 Resp B/P (MAP) 127/77 (94) 130/74 (92) Pulse Ox 97 99 99 98 O2 Delivery Ventilator Ventilator Ventilator Ventilator 01/21/18 01/21/18 01/21/18 01/21/18 20:00 20:00 20:38 21:00 Pulse 91 88 82 Resp B/P (MAP) 132/83 (99) 129/79 125/81 (96) Pulse Ox 98 98 O2 Delivery Mechanical Ventilator Ventilator Ventilator 01/21/18 01/21/18 01/21/18 01/21/18 22:00 23:00 23:15 23:59 Pulse 77 86 Resp B/P (MAP) 130/78 (95) 115/68 (84) Pulse Ox 98 98 98 O2 Delivery Ventilator Ventilator Ventilator Mechanical Ventilator 01/22/18 01/22/18 01/22/18 01/22/18 00:00 01:00 01:20 02:00 Temp 99.1 99.1 Pulse 83 82 80 Resp B/P (MAP) 118/72 (87) 123/74 (90) 119/72 (88) Pulse Ox 98 98 98 99 O2 Delivery Ventilator Ventilator Ventilator Ventilator 01/22/18 01/22/18 01/22/18 01/22/18 03:00 03:20 04:00 04:00 Temp 99.7 99.7 Pulse 84 84 Resp B/P (MAP) 130/79 (96) 130/79 (96) Pulse Ox 99 98 97 O2 Delivery Ventilator Ventilator Mechanical Ventilator Ventilator 01/22/18 01/22/18 01/22/18 01/22/18 04:09 04:39 05:00 05:15 Pulse 84 Resp 26 26 B/P (MAP) 127/78 (94) Pulse Ox 98 98 98 99 O2 Delivery Ventilator Ventilator Ventilator Ventilator 10/2401/22/18 01/22/18 01/22/18 06:00 07:00 07:39 08:00 Temp 98.8 98.8 Pulse 90 84 Resp 26 B/P (MAP) 147/84 (105) 139/84 (102) Pulse Ox 98 98 98 O2 Delivery Ventilator Ventilator Ventilator Mechanical Ventilator 01/22/18 01/22/18 01/22/18 01/22/18 08:00 08:42 08:42 08:43 Pulse 92 98 99 100 Resp B/P (MAP) 167/88 (114) 172/98 172/98 172/98 Pulse Ox 98 O2 Delivery Ventilator 01/22/18 01/22/18 01/22/18 01/22/18 09:00 09:24 09:44 10:00 Pulse 101 101 101 101 Resp 28 28 B/P (MAP) 172/98 (122) 172/98 172/98 159/97 (117) Pulse Ox 96 95 O2 Delivery Ventilator Ventilator 01/22/18 01/22/18 01/22/18 01/22/18 11:00 11:30 12:00 12:00 Temp 99.9 99.9 Pulse 108 92 Resp 31 B/P (MAP) 133/71 (91) 137/79 (98) Pulse Ox 92 98 97 O2 Delivery Ventilator Ventilator Mechanical Ventilator Ventilator 01/22/18 01/22/18 13:00 13:40 Pulse 89 Resp 26 B/P (MAP) 149/88 (108) Pulse Ox 97 98 O2 Delivery Ventilator Ventilator Intake and Output 01/21/18 01/21/18 01/22/18 15:00 23:00 07:00 Intake Total 75 ml 2880 ml Output Total 2150 ml 2185 ml 1630 ml Balance -2075 ml -2185 ml 1250 ml DREA SORENSON K III DO Jan 22, 2018 14:21
[2018-01-22] MEDS: LABETALOL 20 MG/4 ML DISP.SYRIN. IVP PRN ×2 (17:31→19:52)
[2018-01-22] MEDS: MORPHINE SULFATE 2 MG/ML VIAL. IV PRN (19:53)
[2018-01-22] MEDS: ENALAPRILAT 1.25 MG/ML VIAL. IVP SCH (21:00)
[2018-01-22] MEDS ORDERED: cloNIDine TTS-1 1 PATCH PATCH.TDWK TD SCH (21:00)
[2018-01-22] MEDS ORDERED: DEXTROSE 70% IV SCH ×9 (22:00)
[2018-01-22] MEDS ORDERED: TOTAL PARENTERAL NUTRITION IV SCH ×9 (22:00)
[2018-01-22] MEDS ORDERED: AMINO ACIDS IV SCH ×9 (22:00)
[2018-01-22] MEDS ORDERED: [UNRECOGNIZED DRUG - OTHER] IV SCH ×9 (22:00)
[2018-01-23] VITALS (24 sets, daily range): BP systolic 117–181; BP diastolic 74–110
[2018-01-23] MEDS: INSULIN LISPRO 300 UNITS/3 ML INSULN.PEN. SQ SCH ×5 (02:06→18:15)
[2018-01-23] MEDS: IV DEXTROSE 5% 1,000 ML IV SCH ×2 (02:45→10:45)
[2018-01-23] MEDS: ENALAPRILAT 1.25 MG/ML VIAL. IVP SCH ×4 (04:58→18:00)
[2018-01-23] MEDS: HEPARIN for SUB-Q USE 5,000 UNIT/ML VIAL. SQ SCH ×3 (05:57→22:13)
[2018-01-23 06:40] LABS: BASO # 0.1 x10^3/uL (0.0-0.2); BASO % 1 % (0-3); EOS # 0.3 x10^3/uL (0.0-0.7); EOS % 2 % (0-3); HEMATOCRIT 37.1 % (39.0-53.0); HEMOGLOBIN 12.1 g/dL (13.0-17.5); LYMPH # 2.3 x10^3/uL (1.0-4.8); LYMPH % 13 % (24-48); MEAN CORPUSCULAR HEMOGLOBIN 32 pg (25-35); MEAN CORPUSCULAR HGB CONC 33 g/dL (31-37); MEAN CORPUSCULAR VOLUME 98 fL (79-100); MONO # 0.9 x10^3/uL (0.0-1.1); MONO % 5 % (0-9); NEUT # 13.7 x10^3uL (1.8-7.7); NEUT % 79 % (31-73); PLATELET COUNT 520 x10^3/uL (140-400); RED CELL DISTRIBUTION WIDTH 14.4 % (11.5-14.5); WHITE BLOOD COUNT 17.2 x10^3/uL (4.0-11.0)
[2018-01-23 07:03] LABS: CALCIUM 10.1 mg/dL (8.5-10.1); CREATININE 2.1 mg/dL (0.7-1.3); GFR 34.6; MAGNESIUM 2.3 mg/dL (1.8-2.4); PHOSPHORUS 3.5 mg/dL (2.6-4.7); POTASSIUM 3.4 mmol/L (3.5-5.1)
[2018-01-23] MEDS: PANTOPRAZOLE 40 MG TABLET.DR. PO SCH (07:30)
[2018-01-23] MEDS: GEMFIBROZIL 600 MG TABLET. PO SCH ×2 (07:30→17:08)
[2018-01-23] MEDS: IPRATRPIUM/ALBUTEROL 0.5/2.5MG 3 ML NEBU. NEB SCH ×4 (07:33→19:45)
[2018-01-23] MEDS: MAGNESIUM OXIDE 400 MG TABLET PO SCH (07:38)
[2018-01-23] MEDS: VANCOMYCIN 125 MG/2.5 ML ORAL SOLUTION. PO SCH ×4 (07:39→20:29)
[2018-01-23] MEDS: tiZANidine 4 MG TABLET. PO SCH ×3 (07:39→20:30)
[2018-01-23] MEDS: MULTIVITAMIN with MINERAL TABLET. PO SCH (07:39)
--- NOTE | 2018-01-23 07:55 | PDOC ---
Infectious Disease Note Subjective Subjective pt has been awake, extubated, appropriate ROS ROS no n/v/fever Vital Sign Vital Signs Vital Signs Date Time Temp Pulse Resp B/P (MAP) Pulse Ox O2 Delivery O2 Flow Rate FiO2 01/23/18 07:35 100 Room Air 01/23/18 07:00 107 20 138/84 (102) 01/23/18 04:00 98.7 2.0 98.7 Physical Exam PHYSICAL EXAM GENERAL: extubated HEENT: Pupils rr LUNGS: Diminished aeration in the bases. HEART: S1 S2 Regular rhythm. ABDOMEN: Obese. BS active, so grimace or guarding to palpation. GENITOURINARY: Indwelling Cook in place. EXTREMITIES: 1 plus edema or cyanosis. SKIN: He has tattoos. warm without rash NEUROLOGIC: A and O x 3 RIJ - clean. Labs Lab Laboratory Tests Test 01/22/18 08:25 01/22/18 08:47 01/22/18 10:51 01/22/18 10:55 O2 Saturation 97 % (92-99) Arterial Blood pH 7.35 (7.35-7.45) Arterial Blood pCO2 at Patient Temp 39 mmHg (35-46) Arterial Blood pO2 at Patient Temp 104 mmHg (75-108) Arterial Blood HCO3 21 mmol/L (21-28) Arterial Blood Base Excess -5 mmol/L (-3-3) FiO2 40 vent ps 5 peep 5 Glucose (Fingerstick) 140 mg/dL (70-99) 157 mg/dL (70-99) Sodium Level 153 mmol/L (136-145) Test 01/22/18 12:57 01/22/18 15:05 01/22/18 17:12 01/22/18 19:34 Glucose (Fingerstick) 144 mg/dL (70-99) 138 mg/dL (70-99) 159 mg/dL (70-99) 141 mg/dL (70-99) Test 01/22/18 21:43 01/22/18 23:06 01/23/18 00:10 01/23/18 02:02 Glucose (Fingerstick) 166 mg/dL (70-99) 123 mg/dL (70-99) 115 mg/dL (70-99) 190 mg/dL (70-99) Test 01/23/18 05:54 01/23/18 05:55 Glucose (Fingerstick) 206 mg/dL (70-99) White Blood Count 17.2 x10^3/uL (4.0-11.0) Red Blood Count 3.80 x10^6/uL (4.30-5.70) Hemoglobin 12.1 g/dL (13.0-17.5) Hematocrit 37.1 % (39.0-53.0) Mean Corpuscular Volume 98 fL (79-100) Mean Corpuscular Hemoglobin 32 pg (25-35) Mean Corpuscular Hemoglobin Concent 33 g/dL (31-37) Red Cell Distribution Width 14.4 % (11.5-14.5) Platelet Count 520 x10^3/uL (140-400) Neutrophils (%) (Auto) 79 % (31-73) Lymphocytes (%) (Auto) 13 % (24-48) Monocytes (%) (Auto) 5 % (0-9) Eosinophils (%) (Auto) 2 % (0-3) Basophils (%) (Auto) 1 % (0-3) Neutrophils # (Auto) 13.7 x10^3uL (1.8-7.7) Lymphocytes # (Auto) 2.3 x10^3/uL (1.0-4.8) Monocytes # (Auto) 0.9 x10^3/uL (0.0-1.1) Eosinophils # (Auto) 0.3 x10^3/uL (0.0-0.7) Basophils # (Auto) 0.1 x10^3/uL (0.0-0.2) Sodium Level 153 mmol/L (136-145) Potassium Level 3.4 mmol/L (3.5-5.1) Chloride Level 116 mmol/L (98-107) Carbon Dioxide Level 20 mmol/L (21-32) Anion Gap 17 (6-14) Blood Urea Nitrogen 50 mg/dL (8-26) Creatinine 2.1 mg/dL (0.7-1.3) Estimated GFR (Cockcroft-Gault) 34.6 Glucose Level 237 mg/dL (70-99) Calcium Level 10.1 mg/dL (8.5-10.1) Phosphorus Level 3.5 mg/dL (2.6-4.7) Magnesium Level 2.3 mg/dL (1.8-2.4) Micro BC 1/3 G + cocci, coag neg staph Objective Assessment GPC bacteremia (1 of 3 bottles) from 01/16 , contaminant Pancreatitis Fever likely sec to above/+- aspiration/? infection - better DENISHA Aspiration pneumonia. - Group A strep/Strep pneumo/legionella neg. Gram stain from sputum GPC in pairs from 01/12, no growth Acute encephalopathy with hallucinations and behavioral change Lactic acidosis, improved. Heavy alcohol use. Hyperglycemia. Worsening back pain with urinary incontinence prior to admission. 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
[2018-01-23 08:19] LABS: % BANDS 4 % (0-9); % EOS 3 % (0-5); % LYMPHS 11 % (24-48); % MONOS 3 % (0-10); % MYELOS 1 % (0-0); % SEGS 78 % (35-66)
[2018-01-23 08:20] LABS: PLT ESTIMATE INCREASED (ADEQUATE)
[2018-01-23 08:21] LABS: TOXIC GRANULATION SLIGHT
[2018-01-23] MEDS: NEO/POLYMYX/DEXAMETH OPHTH SUSPENSION 5ML BOTTLE. OD SCH ×4 (08:32→20:46)
[2018-01-23] MEDS: LOSARTAN POTASSIUM 25 MG TABLET. PO SCH ×2 (09:00→14:30)
[2018-01-23] MEDS: METOPROLOL TART IMMED RELEASE 50 MG TABLET. PO SCH ×2 (09:00→20:30)
[2018-01-23] MEDS: VENLAFAXINE 50 MG TABLET. PO SCH ×2 (09:00→20:36)
[2018-01-23] MEDS: amLODIPine BESYLATE 10 MG TABLET PO SCH ×2 (09:00→14:31)
[2018-01-23] MEDS: INSULIN GLARGINE 300 UNITS/3 ML INSULN.PEN. SQ SCH ×2 (09:27→20:45)
--- NOTE | 2018-01-23 09:50 | PDOC ---
PULMONARY PROGRESS NOTES Subjective NO RESP COMPLAINTS Vitals Vital Signs Date Time Temp Pulse Resp B/P (MAP) Pulse Ox O2 Delivery O2 Flow Rate FiO2 01/23/18 08:00 Room Air 01/23/18 08:00 98.2 113 21 149/88 (108) 98 98.2 01/23/18 04:00 2.0 ROS: No Nausea, No Chest Pain, No Abdominal Pain, No Increase Cough General: Confused Lungs: Clear, Other Cardiovascular: S1, S2 Abdomen: Soft Neuro Exam: Alert Extremities: Other (1+edema) Skin: Warm Labs Laboratory Tests Test 01/21/18 10:11 01/21/18 11:19 01/21/18 11:40 01/21/18 12:45 Glucose (Fingerstick) 132 mg/dL (70-99) 163 mg/dL (70-99) 144 mg/dL (70-99) O2 Saturation 98 % (92-99) Arterial Blood pH 7.33 (7.35-7.45) Arterial Blood pCO2 at Patient Temp 40 mmHg (35-46) Arterial Blood pO2 at Patient Temp 108 mmHg (75-108) Arterial Blood HCO3 21 mmol/L (21-28) Arterial Blood Base Excess -5 mmol/L (-3-3) FiO2 50 Test 01/21/18 14:09 01/21/18 15:47 01/21/18 16:15 01/21/18 17:06 Glucose (Fingerstick) 145 mg/dL (70-99) 162 mg/dL (70-99) 179 mg/dL (70-99) 138 mg/dL (70-99) Test 01/21/18 19:21 01/21/18 21:00 01/21/18 21:47 01/21/18 22:52 Glucose (Fingerstick) 138 mg/dL (70-99) 168 mg/dL (70-99) 146 mg/dL (70-99) Sodium Level 154 mmol/L (136-145) Test 01/22/18 00:03 01/22/18 01:07 01/22/18 02:09 01/22/18 03:12 Glucose (Fingerstick) 143 mg/dL (70-99) 161 mg/dL (70-99) 147 mg/dL (70-99) 139 mg/dL (70-99) Test 01/22/18 04:12 01/22/18 05:23 01/22/18 05:30 01/22/18 06:37 Glucose (Fingerstick) 132 mg/dL (70-99) 137 mg/dL (70-99) 135 mg/dL (70-99) White Blood Count 12.2 x10^3/uL (4.0-11.0) Red Blood Count 3.21 x10^6/uL (4.30-5.70) Hemoglobin 10.2 g/dL (13.0-17.5) Hematocrit 32.0 % (39.0-53.0) Mean Corpuscular Volume 100 fL (79-100) Mean Corpuscular Hemoglobin 32 pg (25-35) Mean Corpuscular Hemoglobin Concent 32 g/dL (31-37) Red Cell Distribution Width 14.7 % (11.5-14.5) Platelet Count 389 x10^3/uL (140-400) Neutrophils (%) (Auto) 72 % (31-73) Lymphocytes (%) (Auto) 19 % (24-48) Monocytes (%) (Auto) 6 % (0-9) Eosinophils (%) (Auto) 2 % (0-3) Basophils (%) (Auto) 1 % (0-3) Neutrophils # (Auto) 8.8 x10^3uL (1.8-7.7) Lymphocytes # (Auto) 2.3 x10^3/uL (1.0-4.8) Monocytes # (Auto) 0.8 x10^3/uL (0.0-1.1) Eosinophils # (Auto) 0.3 x10^3/uL (0.0-0.7) Basophils # (Auto) 0.1 x10^3/uL (0.0-0.2) Sodium Level 153 mmol/L (136-145) Potassium Level 4.2 mmol/L (3.5-5.1) Chloride Level 117 mmol/L (98-107) Carbon Dioxide Level 23 mmol/L (21-32) Anion Gap 13 (6-14) Blood Urea Nitrogen 57 mg/dL (8-26) Creatinine 2.4 mg/dL (0.7-1.3) Estimated GFR (Cockcroft-Gault) 29.7 Glucose Level 157 mg/dL (70-99) Calcium Level 9.8 mg/dL (8.5-10.1) Phosphorus Level 5.5 mg/dL (2.6-4.7) Magnesium Level 2.5 mg/dL (1.8-2.4) Test 01/22/18 08:25 01/22/18 08:47 01/22/18 10:51 01/22/18 10:55 O2 Saturation 97 % (92-99) Arterial Blood pH 7.35 (7.35-7.45) Arterial Blood pCO2 at Patient Temp 39 mmHg (35-46) Arterial Blood pO2 at Patient Temp 104 mmHg (75-108) Arterial Blood HCO3 21 mmol/L (21-28) Arterial Blood Base Excess -5 mmol/L (-3-3) FiO2 40 vent ps 5 peep 5 Glucose (Fingerstick) 140 mg/dL (70-99) 157 mg/dL (70-99) Sodium Level 153 mmol/L (136-145) Test 01/22/18 12:57 01/22/18 15:05 01/22/18 17:12 01/22/18 19:34 Glucose (Fingerstick) 144 mg/dL (70-99) 138 mg/dL (70-99) 159 mg/dL (70-99) 141 mg/dL (70-99) Test 01/22/18 21:43 01/22/18 23:06 01/23/18 00:10 01/23/18 02:02 Glucose (Fingerstick) 166 mg/dL (70-99) 123 mg/dL (70-99) 115 mg/dL (70-99) 190 mg/dL (70-99) Test 01/23/18 05:54 01/23/18 05:55 01/23/18 08:39 Glucose (Fingerstick) 206 mg/dL (70-99) 211 mg/dL (70-99) White Blood Count 17.2 x10^3/uL (4.0-11.0) Red Blood Count 3.80 x10^6/uL (4.30-5.70) Hemoglobin 12.1 g/dL (13.0-17.5) Hematocrit 37.1 % (39.0-53.0) Mean Corpuscular Volume 98 fL (79-100) Mean Corpuscular Hemoglobin 32 pg (25-35) Mean Corpuscular Hemoglobin Concent 33 g/dL (31-37) Red Cell Distribution Width 14.4 % (11.5-14.5) Platelet Count 520 x10^3/uL (140-400) Neutrophils (%) (Auto) 79 % (31-73) Lymphocytes (%) (Auto) 13 % (24-48) Monocytes (%) (Auto) 5 % (0-9) Eosinophils (%) (Auto) 2 % (0-3) Basophils (%) (Auto) 1 % (0-3) Neutrophils # (Auto) 13.7 x10^3uL (1.8-7.7) Lymphocytes # (Auto) 2.3 x10^3/uL (1.0-4.8) Monocytes # (Auto) 0.9 x10^3/uL (0.0-1.1) Eosinophils # (Auto) 0.3 x10^3/uL (0.0-0.7) Basophils # (Auto) 0.1 x10^3/uL (0.0-0.2) Segmented Neutrophils % 78 % (35-66) Band Neutrophils % 4 % (0-9) Lymphocytes % 11 % (24-48) Monocytes % 3 % (0-10) Eosinophils % 3 % (0-5) Myelocytes % 1 % (0-0) Toxic Granulation Slight Platelet Estimate Increased (ADEQUATE) Sodium Level 153 mmol/L (136-145) Potassium Level 3.4 mmol/L (3.5-5.1) Chloride Level 116 mmol/L (98-107) Carbon Dioxide Level 20 mmol/L (21-32) Anion Gap 17 (6-14) Blood Urea Nitrogen 50 mg/dL (8-26) Creatinine 2.1 mg/dL (0.7-1.3) Estimated GFR (Cockcroft-Gault) 34.6 Glucose Level 237 mg/dL (70-99) Calcium Level 10.1 mg/dL (8.5-10.1) Phosphorus Level 3.5 mg/dL (2.6-4.7) Magnesium Level 2.3 mg/dL (1.8-2.4) Laboratory Tests Test 01/22/18 10:51 01/22/18 10:55 01/22/18 12:57 01/22/18 15:05 Glucose (Fingerstick) 157 mg/dL (70-99) 144 mg/dL (70-99) 138 mg/dL (70-99) Sodium Level 153 mmol/L (136-145) Test 01/22/18 17:12 01/22/18 19:34 01/22/18 21:43 01/22/18 23:06 Glucose (Fingerstick) 159 mg/dL (70-99) 141 mg/dL (70-99) 166 mg/dL (70-99) 123 mg/dL (70-99) Test 01/23/18 00:10 01/23/18 02:02 01/23/18 05:54 01/23/18 05:55 Glucose (Fingerstick) 115 mg/dL (70-99) 190 mg/dL (70-99) 206 mg/dL (70-99) White Blood Count 17.2 x10^3/uL (4.0-11.0) Red Blood Count 3.80 x10^6/uL (4.30-5.70) Hemoglobin 12.1 g/dL (13.0-17.5) Hematocrit 37.1 % (39.0-53.0) Mean Corpuscular Volume 98 fL (79-100) Mean Corpuscular Hemoglobin 32 pg (25-35) Mean Corpuscular Hemoglobin Concent 33 g/dL (31-37) Red Cell Distribution Width 14.4 % (11.5-14.5) Platelet Count 520 x10^3/uL (140-400) Neutrophils (%) (Auto) 79 % (31-73) Lymphocytes (%) (Auto) 13 % (24-48) Monocytes (%) (Auto) 5 % (0-9) Eosinophils (%) (Auto) 2 % (0-3) Basophils (%) (Auto) 1 % (0-3) Neutrophils # (Auto) 13.7 x10^3uL (1.8-7.7) Lymphocytes # (Auto) 2.3 x10^3/uL (1.0-4.8) Monocytes # (Auto) 0.9 x10^3/uL (0.0-1.1) Eosinophils # (Auto) 0.3 x10^3/uL (0.0-0.7) Basophils # (Auto) 0.1 x10^3/uL (0.0-0.2) Segmented Neutrophils % 78 % (35-66) Band Neutrophils % 4 % (0-9) Lymphocytes % 11 % (24-48) Monocytes % 3 % (0-10) Eosinophils % 3 % (0-5) Myelocytes % 1 % (0-0) Toxic Granulation Slight Platelet Estimate Increased (ADEQUATE) Sodium Level 153 mmol/L (136-145) Potassium Level 3.4 mmol/L (3.5-5.1) Chloride Level 116 mmol/L (98-107) Carbon Dioxide Level 20 mmol/L (21-32) Anion Gap 17 (6-14) Blood Urea Nitrogen 50 mg/dL (8-26) Creatinine 2.1 mg/dL (0.7-1.3) Estimated GFR (Cockcroft-Gault) 34.6 Glucose Level 237 mg/dL (70-99) Calcium Level 10.1 mg/dL (8.5-10.1) Phosphorus Level 3.5 mg/dL (2.6-4.7) Magnesium Level 2.3 mg/dL (1.8-2.4) Test 01/23/18 08:39 Glucose (Fingerstick) 211 mg/dL (70-99) Medications Active Scripts Medications Dose Route/Sig Max Daily Dose Days Date Category [hemp botanicals] 01/12/18 Reported Maxitrol Eye Drops (Brandon/Polymyx B Sulf/Dexameth) 5 Ml Drops.susp 1 Drop OD QID 01/12/18 Reported Multivitamins (Multivitamin) 1 Each Tablet 1 Tab PO DAILY 01/12/18 Reported Magnesium (Magnesium Oxide) 400 Mg Capsule 1 Cap PO DAILY 01/12/18 Reported Calcium (Calcium Carbonate) 500 Mg Tab.chew 500 Mg PO 01/12/18 Reported Lansoprazole 30 Mg Capsule.dr 1 Cap PO DAILY 01/12/18 Reported Losartan Potassium 25 Mg Tablet 25 Mg PO DAILY 01/12/18 Reported Tizanidine Hcl 4 Mg Tablet 1 Tab PO TID 01/12/18 Reported Tramadol Hcl 50 Mg Tablet 50 Mg PO DAILY PRN 01/12/18 Reported Bystolic (Nebivolol Hcl) 20 Mg Tablet 20 Mg PO DAILY 01/12/18 Reported Cymbalta (Duloxetine Hcl) 20 Mg Capsule.dr 1 Cap PO DAILY 01/12/18 Reported Valacyclovir (Valacyclovir Hcl) 1,000 Mg Tablet 1 Tab PO DAILY 01/12/18 Reported Ibuprofen 400 Mg Tablet 400 Mg PO PRN Q6HRS PRN 09/21/15 Reported Bystolic (Nebivolol) 10 Mg Tablet 20 Mg PO DAILY 09/21/15 Reported Amlodipine Besylate 10 Mg Tablet 10 Mg PO DAILY 09/21/15 Reported Comments Impression . 1. Acute respiratory failure./ multi-factorial 2. severe encephalopathy/ delirium/ ETOH with drawl 3. Sepsis . source pancreatitis 4. alcohol withdrawal 5. alcoholic pancreatitis 6. No obvious CHF/ normal EF 7. History of alcohol abuse. Level neg. Positive for marihuana 8. Obesity? obstructive sleep apnea-hypopnea syndrome. 9. DENISHA,, better 10. Combined met/resp acidosis. improved 11. staph bacteremia Plan . EXTUBATE 01/22 FOLLOW COMMANDS STRONG COUGH WILL GO AHEAD AND GIVE MED WITH WATER OFF SEDATION d/w RN AND RT JADE VELEZ MD Jan 23, 2018 09:50
[2018-01-23] MEDS ORDERED: POTASSIUM CHLORIDE 20MEQ 50 ML IV ONE (11:00)
--- NOTE | 2018-01-23 11:29 | PDOC ---
Renal-Progress Notes Subjective Notes Notes NO CHANGE History of Present Illness Hx of present illness SAME Vitals Vitals Vital Signs Date Time Temp Pulse Resp B/P (MAP) Pulse Ox O2 Delivery O2 Flow Rate FiO2 01/23/18 10:00 112 20 144/80 (101) 98 Room Air 01/23/18 08:00 98.2 98.2 01/23/18 04:00 2.0 Weight Weight [ ] I.O. Intake and Output Intake and Output 01/23/18 07:00 Intake Total 5298.37 ml Output Total 5870 ml Balance -571.63 ml IV Total 5298.37 ml Output Urine Total 5870 ml # Bowel Movements 1 Labs Labs Laboratory Tests Test 01/22/18 12:57 01/22/18 15:05 01/22/18 17:12 01/22/18 19:34 Glucose (Fingerstick) 144 mg/dL (70-99) 138 mg/dL (70-99) 159 mg/dL (70-99) 141 mg/dL (70-99) Test 01/22/18 21:43 01/22/18 23:06 01/23/18 00:10 01/23/18 02:02 Glucose (Fingerstick) 166 mg/dL (70-99) 123 mg/dL (70-99) 115 mg/dL (70-99) 190 mg/dL (70-99) Test 01/23/18 05:54 01/23/18 05:55 01/23/18 08:39 01/23/18 10:00 Glucose (Fingerstick) 206 mg/dL (70-99) 211 mg/dL (70-99) White Blood Count 17.2 x10^3/uL (4.0-11.0) Red Blood Count 3.80 x10^6/uL (4.30-5.70) Hemoglobin 12.1 g/dL (13.0-17.5) Hematocrit 37.1 % (39.0-53.0) Mean Corpuscular Volume 98 fL (79-100) Mean Corpuscular Hemoglobin 32 pg (25-35) Mean Corpuscular Hemoglobin Concent 33 g/dL (31-37) Red Cell Distribution Width 14.4 % (11.5-14.5) Platelet Count 520 x10^3/uL (140-400) Neutrophils (%) (Auto) 79 % (31-73) Lymphocytes (%) (Auto) 13 % (24-48) Monocytes (%) (Auto) 5 % (0-9) Eosinophils (%) (Auto) 2 % (0-3) Basophils (%) (Auto) 1 % (0-3) Neutrophils # (Auto) 13.7 x10^3uL (1.8-7.7) Lymphocytes # (Auto) 2.3 x10^3/uL (1.0-4.8) Monocytes # (Auto) 0.9 x10^3/uL (0.0-1.1) Eosinophils # (Auto) 0.3 x10^3/uL (0.0-0.7) Basophils # (Auto) 0.1 x10^3/uL (0.0-0.2) Segmented Neutrophils % 78 % (35-66) Band Neutrophils % 4 % (0-9) Lymphocytes % 11 % (24-48) Monocytes % 3 % (0-10) Eosinophils % 3 % (0-5) Myelocytes % 1 % (0-0) Toxic Granulation Slight Platelet Estimate Increased (ADEQUATE) Sodium Level 153 mmol/L (136-145) 154 mmol/L (136-145) Potassium Level 3.4 mmol/L (3.5-5.1) Chloride Level 116 mmol/L (98-107) Carbon Dioxide Level 20 mmol/L (21-32) Anion Gap 17 (6-14) Blood Urea Nitrogen 50 mg/dL (8-26) Creatinine 2.1 mg/dL (0.7-1.3) Estimated GFR (Cockcroft-Gault) 34.6 Glucose Level 237 mg/dL (70-99) Calcium Level 10.1 mg/dL (8.5-10.1) Phosphorus Level 3.5 mg/dL (2.6-4.7) Magnesium Level 2.3 mg/dL (1.8-2.4) Micro Micro Microbiology 01/18/18 Blood Culture - Preliminary, Resulted NO GROWTH AFTER 4 DAYS 01/13/18 Throat Culture - Final, Complete 01/13/18 - Final, Complete Review of Systems Constitutional: yes: unresponsive Physical Exam Respiratory: decreased breath sounds Heart: S1S2 Abdomen: soft, other (HYPOACTIVE) Genitourinary: monteiro catheter Extremities: pulses present, no edema Neurology: other (sedated) Assessment Assessment IMP NEPHROGENIC DI-UO STILL UP ETOH ABUSE HYPERNATREMIA HYPOKALEMIA DENISHA-BETTER WITH CR DOWN TO 2.1 PANCREATITIS ACUTE RESP FAILURE ASP PNEUMONIA PLAN TPN ABX REPLACE K DESMOPRESSIN IV INCREASED CONT D5 W WILL FOLLOW SUPPORTIVE CARE RENNY KWAN MD Jan 23, 2018 11:29
--- NOTE | 2018-01-23 11:33 | PDOC ---
Subjective: Subjective: Can't really tell if he has any pain or not. No previous pancreatitis - says he "knows" related to alcohol. Thinks had normal EGD and colonoscopy in the past. Objective: Objective: Reviewed w/ RN - [employer] to see today. Vital Signs: Vital Signs Date Time Temp Pulse Resp B/P (MAP) Pulse Ox O2 Delivery O2 Flow Rate FiO2 01/23/18 10:00 112 20 144/80 (101) 98 Room Air 01/23/18 08:00 98.2 98.2 01/23/18 04:00 2.0 Labs: Laboratory Tests Test 01/22/18 12:57 01/22/18 15:05 01/22/18 17:12 01/22/18 19:34 Glucose (Fingerstick) 144 mg/dL 138 mg/dL 159 mg/dL 141 mg/dL Test 01/22/18 21:43 01/22/18 23:06 01/23/18 00:10 01/23/18 02:02 Glucose (Fingerstick) 166 mg/dL 123 mg/dL 115 mg/dL 190 mg/dL Test 01/23/18 05:54 01/23/18 05:55 01/23/18 08:39 01/23/18 10:00 Glucose (Fingerstick) 206 mg/dL 211 mg/dL White Blood Count 17.2 x10^3/uL Red Blood Count 3.80 x10^6/uL Hemoglobin 12.1 g/dL Hematocrit 37.1 % Mean Corpuscular Volume 98 fL Mean Corpuscular Hemoglobin 32 pg Mean Corpuscular Hemoglobin Concent 33 g/dL Red Cell Distribution Width 14.4 % Platelet Count 520 x10^3/uL Neutrophils (%) (Auto) 79 % Lymphocytes (%) (Auto) 13 % Monocytes (%) (Auto) 5 % Eosinophils (%) (Auto) 2 % Basophils (%) (Auto) 1 % Neutrophils # (Auto) 13.7 x10^3uL Lymphocytes # (Auto) 2.3 x10^3/uL Monocytes # (Auto) 0.9 x10^3/uL Eosinophils # (Auto) 0.3 x10^3/uL Basophils # (Auto) 0.1 x10^3/uL Segmented Neutrophils % 78 % Band Neutrophils % 4 % Lymphocytes % 11 % Monocytes % 3 % Eosinophils % 3 % Myelocytes % 1 % Toxic Granulation Slight Platelet Estimate Increased Sodium Level 153 mmol/L 154 mmol/L Potassium Level 3.4 mmol/L Chloride Level 116 mmol/L Carbon Dioxide Level 20 mmol/L Anion Gap 17 Blood Urea Nitrogen 50 mg/dL Creatinine 2.1 mg/dL Estimated GFR (Cockcroft-Gault) 34.6 Glucose Level 237 mg/dL Calcium Level 10.1 mg/dL Phosphorus Level 3.5 mg/dL Magnesium Level 2.3 mg/dL PE: GEN: NAD, up in chair LUNGS: CTAB HEART: RRR ABD: round, on the quiet side, non-tender NEURO/PSYCH: A & O 3 A/P: DENISHA, hypernatremia, ?DI Pancreatitis - alcohol, hypertriglyceridemia C Diff -- Extubated. Okay to eat per GI when cleared by [employer], also need PO vanco for C Diff. MARILYN VASQUEZ Jan 23, 2018 11:33
--- NOTE | 2018-01-23 11:54 | PDOC ---
PROGRESS NOTES Chief Complaint Chief Complaint Acute respiratory failure ETOH intoxication versus dependence, not protecting airway hence intubated at the emergency room LLL pneumonia Sepsis likely secondary to LLL pneumonia Severe agitation, could be secondary to alcohol withdrawal versus sepsis versus others Pancreatitis - hyperglycemia with hypertriglyceridemia Elevated BNP and troponin elevation Obesity BMI 39 - poss obstructive sleep apnea-hypopnea syndrome H/o alcohol abuse H/o anxiety H/o GERD H/o hypertension History of Present Illness History of Present Illness Pt seen and examined in the ICU Discussed with RN Pt is laying in bed, pleasantly confused Vitals Vitals Vital Signs Date Time Temp Pulse Resp B/P (MAP) Pulse Ox O2 Delivery O2 Flow Rate FiO2 01/23/18 10:00 112 20 144/80 (101) 98 Room Air 01/23/18 08:00 98.2 98.2 01/23/18 04:00 2.0 Physical Exam Physical Exam GENERAL: extubated, pleasantly confused HEENT: Pupils rr LUNGS: Diminished aeration in the bases. HEART: S1 S2 Regular rhythm. ABDOMEN: Obese. BS active, no grimace or guarding to palpation. GENITOURINARY: Indwelling Cook in place. EXTREMITIES: No edema or cyanosis SKIN: He has tattoos. warm without rash NEUROLOGIC: Alert, not oriented to year or place RIJ - clean. General: Alert, No acute distress, Other (pleasantly confused) Heart: Regular rate, Normal S1, Normal S2, No murmurs Lungs: Clear Abdomen: Normal bowel sounds, Soft, No masses Extremities: No clubbing, No cyanosis, No edema, Normal pulses Skin: No rashes, No breakdown Labs LABS Laboratory Tests Test 01/22/18 12:57 01/22/18 15:05 01/22/18 17:12 01/22/18 19:34 Glucose (Fingerstick) 144 mg/dL (70-99) 138 mg/dL (70-99) 159 mg/dL (70-99) 141 mg/dL (70-99) Test 01/22/18 21:43 01/22/18 23:06 01/23/18 00:10 01/23/18 02:02 Glucose (Fingerstick) 166 mg/dL (70-99) 123 mg/dL (70-99) 115 mg/dL (70-99) 190 mg/dL (70-99) Test 01/23/18 05:54 01/23/18 05:55 01/23/18 08:39 01/23/18 10:00 Glucose (Fingerstick) 206 mg/dL (70-99) 211 mg/dL (70-99) White Blood Count 17.2 x10^3/uL (4.0-11.0) Red Blood Count 3.80 x10^6/uL (4.30-5.70) Hemoglobin 12.1 g/dL (13.0-17.5) Hematocrit 37.1 % (39.0-53.0) Mean Corpuscular Volume 98 fL (79-100) Mean Corpuscular Hemoglobin 32 pg (25-35) Mean Corpuscular Hemoglobin Concent 33 g/dL (31-37) Red Cell Distribution Width 14.4 % (11.5-14.5) Platelet Count 520 x10^3/uL (140-400) Neutrophils (%) (Auto) 79 % (31-73) Lymphocytes (%) (Auto) 13 % (24-48) Monocytes (%) (Auto) 5 % (0-9) Eosinophils (%) (Auto) 2 % (0-3) Basophils (%) (Auto) 1 % (0-3) Neutrophils # (Auto) 13.7 x10^3uL (1.8-7.7) Lymphocytes # (Auto) 2.3 x10^3/uL (1.0-4.8) Monocytes # (Auto) 0.9 x10^3/uL (0.0-1.1) Eosinophils # (Auto) 0.3 x10^3/uL (0.0-0.7) Basophils # (Auto) 0.1 x10^3/uL (0.0-0.2) Segmented Neutrophils % 78 % (35-66) Band Neutrophils % 4 % (0-9) Lymphocytes % 11 % (24-48) Monocytes % 3 % (0-10) Eosinophils % 3 % (0-5) Myelocytes % 1 % (0-0) Toxic Granulation Slight Platelet Estimate Increased (ADEQUATE) Sodium Level 153 mmol/L (136-145) 154 mmol/L (136-145) Potassium Level 3.4 mmol/L (3.5-5.1) Chloride Level 116 mmol/L (98-107) Carbon Dioxide Level 20 mmol/L (21-32) Anion Gap 17 (6-14) Blood Urea Nitrogen 50 mg/dL (8-26) Creatinine 2.1 mg/dL (0.7-1.3) Estimated GFR (Cockcroft-Gault) 34.6 Glucose Level 237 mg/dL (70-99) Calcium Level 10.1 mg/dL (8.5-10.1) Phosphorus Level 3.5 mg/dL (2.6-4.7) Magnesium Level 2.3 mg/dL (1.8-2.4) Review of Systems Review of Systems Pt is pleasantly confused and not oriented. He denies any complaints, but is a poor historian so unable to obtain. Assessment and Plan Assessmemt and Plan Problems Medical Problems: (1) Diabetic keto-acidosis Status: Acute (2) Hyperglycemia due to type 2 diabetes mellitus Status: Acute (3) Metabolic acidemia Status: Acute (4) Metabolic encephalopathy Status: Acute Assessment: Acute respiratory failure ETOH intoxication versus dependence, not protecting airway hence intubated at the emergency room LLL pneumonia Sepsis likely secondary to LLL pneumonia Severe agitation, could be secondary to alcohol withdrawal versus sepsis versus others Pancreatitis - hyperglycemia with hypertriglyceridemia Elevated BNP and troponin elevation Obesity BMI 39 - poss obstructive sleep apnea-hypopnea syndrome H/o alcohol abuse H/o anxiety H/o GERD H/o hypertension Plan: ICU monitoring Alcohol withdrawal protocol Labs Home meds IV TPN Cook cath Contact precautions for c diff Appreciate subspecialist input Continue electrolyte panel for mild hypokalemia DVT ppx Comment Review of Relevant I have reviewed the following items franklyn (where applicable) has been applied. Labs Laboratory Tests Test 01/21/18 12:45 01/21/18 14:09 01/21/18 15:47 01/21/18 16:15 Glucose (Fingerstick) 144 mg/dL (70-99) 145 mg/dL (70-99) 162 mg/dL (70-99) 179 mg/dL (70-99) Test 01/21/18 17:06 01/21/18 19:21 01/21/18 21:00 01/21/18 21:47 Glucose (Fingerstick) 138 mg/dL (70-99) 138 mg/dL (70-99) 168 mg/dL (70-99) Sodium Level 154 mmol/L (136-145) Test 01/21/18 22:52 01/22/18 00:03 01/22/18 01:07 01/22/18 02:09 Glucose (Fingerstick) 146 mg/dL (70-99) 143 mg/dL (70-99) 161 mg/dL (70-99) 147 mg/dL (70-99) Test 01/22/18 03:12 01/22/18 04:12 01/22/18 05:23 01/22/18 05:30 Glucose (Fingerstick) 139 mg/dL (70-99) 132 mg/dL (70-99) 137 mg/dL (70-99) White Blood Count 12.2 x10^3/uL (4.0-11.0) Red Blood Count 3.21 x10^6/uL (4.30-5.70) Hemoglobin 10.2 g/dL (13.0-17.5) Hematocrit 32.0 % (39.0-53.0) Mean Corpuscular Volume 100 fL (79-100) Mean Corpuscular Hemoglobin 32 pg (25-35) Mean Corpuscular Hemoglobin Concent 32 g/dL (31-37) Red Cell Distribution Width 14.7 % (11.5-14.5) Platelet Count 389 x10^3/uL (140-400) Neutrophils (%) (Auto) 72 % (31-73) Lymphocytes (%) (Auto) 19 % (24-48) Monocytes (%) (Auto) 6 % (0-9) Eosinophils (%) (Auto) 2 % (0-3) Basophils (%) (Auto) 1 % (0-3) Neutrophils # (Auto) 8.8 x10^3uL (1.8-7.7) Lymphocytes # (Auto) 2.3 x10^3/uL (1.0-4.8) Monocytes # (Auto) 0.8 x10^3/uL (0.0-1.1) Eosinophils # (Auto) 0.3 x10^3/uL (0.0-0.7) Basophils # (Auto) 0.1 x10^3/uL (0.0-0.2) Sodium Level 153 mmol/L (136-145) Potassium Level 4.2 mmol/L (3.5-5.1) Chloride Level 117 mmol/L (98-107) Carbon Dioxide Level 23 mmol/L (21-32) Anion Gap 13 (6-14) Blood Urea Nitrogen 57 mg/dL (8-26) Creatinine 2.4 mg/dL (0.7-1.3) Estimated GFR (Cockcroft-Gault) 29.7 Glucose Level 157 mg/dL (70-99) Calcium Level 9.8 mg/dL (8.5-10.1) Phosphorus Level 5.5 mg/dL (2.6-4.7) Magnesium Level 2.5 mg/dL (1.8-2.4) Test 01/22/18 06:37 01/22/18 08:25 01/22/18 08:47 01/22/18 10:51 Glucose (Fingerstick) 135 mg/dL (70-99) 140 mg/dL (70-99) 157 mg/dL (70-99) O2 Saturation 97 % (92-99) Arterial Blood pH 7.35 (7.35-7.45) Arterial Blood pCO2 at Patient Temp 39 mmHg (35-46) Arterial Blood pO2 at Patient Temp 104 mmHg (75-108) Arterial Blood HCO3 21 mmol/L (21-28) Arterial Blood Base Excess -5 mmol/L (-3-3) FiO2 40 vent ps 5 peep 5 Test 01/22/18 10:55 01/22/18 12:57 01/22/18 15:05 01/22/18 17:12 Sodium Level 153 mmol/L (136-145) Glucose (Fingerstick) 144 mg/dL (70-99) 138 mg/dL (70-99) 159 mg/dL (70-99) Test 01/22/18 19:34 01/22/18 21:43 01/22/18 23:06 01/23/18 00:10 Glucose (Fingerstick) 141 mg/dL (70-99) 166 mg/dL (70-99) 123 mg/dL (70-99) 115 mg/dL (70-99) Test 01/23/18 02:02 01/23/18 05:54 01/23/18 05:55 01/23/18 08:39 Glucose (Fingerstick) 190 mg/dL (70-99) 206 mg/dL (70-99) 211 mg/dL (70-99) White Blood Count 17.2 x10^3/uL (4.0-11.0) Red Blood Count 3.80 x10^6/uL (4.30-5.70) Hemoglobin 12.1 g/dL (13.0-17.5) Hematocrit 37.1 % (39.0-53.0) Mean Corpuscular Volume 98 fL (79-100) Mean Corpuscular Hemoglobin 32 pg (25-35) Mean Corpuscular Hemoglobin Concent 33 g/dL (31-37) Red Cell Distribution Width 14.4 % (11.5-14.5) Platelet Count 520 x10^3/uL (140-400) Neutrophils (%) (Auto) 79 % (31-73) Lymphocytes (%) (Auto) 13 % (24-48) Monocytes (%) (Auto) 5 % (0-9) Eosinophils (%) (Auto) 2 % (0-3) Basophils (%) (Auto) 1 % (0-3) Neutrophils # (Auto) 13.7 x10^3uL (1.8-7.7) Lymphocytes # (Auto) 2.3 x10^3/uL (1.0-4.8) Monocytes # (Auto) 0.9 x10^3/uL (0.0-1.1) Eosinophils # (Auto) 0.3 x10^3/uL (0.0-0.7) Basophils # (Auto) 0.1 x10^3/uL (0.0-0.2) Segmented Neutrophils % 78 % (35-66) Band Neutrophils % 4 % (0-9) Lymphocytes % 11 % (24-48) Monocytes % 3 % (0-10) Eosinophils % 3 % (0-5) Myelocytes % 1 % (0-0) Toxic Granulation Slight Platelet Estimate Increased (ADEQUATE) Sodium Level 153 mmol/L (136-145) Potassium Level 3.4 mmol/L (3.5-5.1) Chloride Level 116 mmol/L (98-107) Carbon Dioxide Level 20 mmol/L (21-32) Anion Gap 17 (6-14) Blood Urea Nitrogen 50 mg/dL (8-26) Creatinine 2.1 mg/dL (0.7-1.3) Estimated GFR (Cockcroft-Gault) 34.6 Glucose Level 237 mg/dL (70-99) Calcium Level 10.1 mg/dL (8.5-10.1) Phosphorus Level 3.5 mg/dL (2.6-4.7) Magnesium Level 2.3 mg/dL (1.8-2.4) Test 01/23/18 10:00 Sodium Level 154 mmol/L (136-145) Laboratory Tests Test 01/22/18 12:57 01/22/18 15:05 01/22/18 17:12 01/22/18 19:34 Glucose (Fingerstick) 144 mg/dL (70-99) 138 mg/dL (70-99) 159 mg/dL (70-99) 141 mg/dL (70-99) Test 01/22/18 21:43 01/22/18 23:06 01/23/18 00:10 01/23/18 02:02 Glucose (Fingerstick) 166 mg/dL (70-99) 123 mg/dL (70-99) 115 mg/dL (70-99) 190 mg/dL (70-99) Test 01/23/18 05:54 01/23/18 05:55 01/23/18 08:39 01/23/18 10:00 Glucose (Fingerstick) 206 mg/dL (70-99) 211 mg/dL (70-99) White Blood Count 17.2 x10^3/uL (4.0-11.0) Red Blood Count 3.80 x10^6/uL (4.30-5.70) Hemoglobin 12.1 g/dL (13.0-17.5) Hematocrit 37.1 % (39.0-53.0) Mean Corpuscular Volume 98 fL (79-100) Mean Corpuscular Hemoglobin 32 pg (25-35) Mean Corpuscular Hemoglobin Concent 33 g/dL (31-37) Red Cell Distribution Width 14.4 % (11.5-14.5) Platelet Count 520 x10^3/uL (140-400) Neutrophils (%) (Auto) 79 % (31-73) Lymphocytes (%) (Auto) 13 % (24-48) Monocytes (%) (Auto) 5 % (0-9) Eosinophils (%) (Auto) 2 % (0-3) Basophils (%) (Auto) 1 % (0-3) Neutrophils # (Auto) 13.7 x10^3uL (1.8-7.7) Lymphocytes # (Auto) 2.3 x10^3/uL (1.0-4.8) Monocytes # (Auto) 0.9 x10^3/uL (0.0-1.1) Eosinophils # (Auto) 0.3 x10^3/uL (0.0-0.7) Basophils # (Auto) 0.1 x10^3/uL (0.0-0.2) Segmented Neutrophils % 78 % (35-66) Band Neutrophils % 4 % (0-9) Lymphocytes % 11 % (24-48) Monocytes % 3 % (0-10) Eosinophils % 3 % (0-5) Myelocytes % 1 % (0-0) Toxic Granulation Slight Platelet Estimate Increased (ADEQUATE) Sodium Level 153 mmol/L (136-145) 154 mmol/L (136-145) Potassium Level 3.4 mmol/L (3.5-5.1) Chloride Level 116 mmol/L (98-107) Carbon Dioxide Level 20 mmol/L (21-32) Anion Gap 17 (6-14) Blood Urea Nitrogen 50 mg/dL (8-26) Creatinine 2.1 mg/dL (0.7-1.3) Estimated GFR (Cockcroft-Gault) 34.6 Glucose Level 237 mg/dL (70-99) Calcium Level 10.1 mg/dL (8.5-10.1) Phosphorus Level 3.5 mg/dL (2.6-4.7) Magnesium Level 2.3 mg/dL (1.8-2.4) Microbiology 01/18/18 Blood Culture - Preliminary, Resulted NO GROWTH AFTER 4 DAYS 01/13/18 Throat Culture - Final, Complete 01/13/18 - Final, Complete Medications Current Medications Lorazepam (Ativan) 1 mg 1X ONCE IV Last administered on 01/11/18at 12:25; Start 01/11/18 at 12:30; Stop 01/11/18 at 12:31; Status DC Lorazepam (Ativan) 2 mg 1X ONCE IV Last administered on 01/11/18at 13:03; Start 01/11/18 at 12:45; Stop 01/11/18 at 12:46; Status DC Dextrose/Sodium Chloride 1,000 ml @ 0 mls/hr 1X ONCE IV ; Start 01/11/18 at 13:00; Stop 01/11/18 at 13:16; Status DC Sodium Chloride 1,000 ml @ 1,000 mls/hr 1X ONCE IV Last administered on 01/11at 13:41; Start 01/11/18 at 13:30; Stop 01/11/18 at 14:29; Status DC Sodium Chloride 1,000 ml @ 1,000 mls/hr 1X ONCE IV Last administered on 01/11at 13:42; Start 01/11/18 at 13:30; Stop 01/11/18 at 14:29; Status DC Lorazepam (Ativan) 1 mg 1X ONCE IV Last administered on 01/11/18at 15:08; Start 01/11/18 at 13:30; Stop 01/11/18 at 13:31; Status DC Lorazepam (Ativan) 1 mg 1X ONCE IV Last administered on 01/11/18at 13:43; Start 01/11/18 at 13:30; Stop 01/11/18 at 13:33; Status DC Aspirin (Children'S Aspirin) 324 mg 1X ONCE PO Last administered on at 14:02; Start 01/11/18 at 13:45; Stop 01/11/18 at 13:46; Status DC Haloperidol Lactate (Haldol Inj) 5 mg PRN Q6HRS PRN IVP SEVERE AGITATION Last administered on 01/21/18at 00:53; Start 01/11/18 at 16:15 Lorazepam (Ativan) 4 mg PRN Q4HRS PRN IV ANXIETY / AGITATION Last administered on 01/23/18at 00:35; Start 01/11/18 at 16:15 Multivitamins 10 ml/Thiamine HCl 100 mg/Folic Acid 1 mg/Sodium Chloride 1,011.2 ml @ 125 mls/ hr DAILY IV Last administered on 01/14/18at 08:19; Start at 17:00; Stop 01/14/18 at 21:59; Status DC Dexmedetomidine HCl 200 mcg/ Sodium Chloride 50 ml @ 0 mls/hr CONT PRN IV PER PROTOCOL Last administered on 01/11/18at 17:00; Start 01/11/18 at 16:45; Stop 01/11/18 at 18:38; Status DC Sodium Chloride 500 ml @ 500 mls/hr 1X PRN PRN IV SEE COMMENTS; Start at 16:45 Atropine Sulfate (ATROPINE 0.5mg SYRINGE) 0.5 mg PRN Q5MIN PRN IV SEE COMMENTS ; Start 01/11/18 at 16:45 Lorazepam (Ativan) 4 mg PRN Q1HR PRN PO For CIWA 8-14; Start 01/11/18 at 18:15 Lorazepam (Ativan) 8 mg PRN Q1HR PRN PO For CIWA 15 or greater; Start at 18:15 Lorazepam (Ativan) 2 mg PRN Q1HR PRN IV For CIWA 8-14 Last administered on at 20:52; Start 01/11/18 at 18:15 Lorazepam (Ativan) 4 mg PRN Q1HR PRN IV For CIWA 15 or greater Last administered on 01/15/18at 23:04; Start 01/11/18 at 18:15 Diphenhydramine HCl (Benadryl) 25 mg PRN Q15MIN PRN IVP EPS symptoms 2'Haldol admin; Start 01/11/18 at 18:15 Olanzapine (ZyPREXA IM) 10 mg 1X ONCE IM Last administered on 01/11/18at 18:42 ; Start 01/11/18 at 18:45; Stop 01/11/18 at 18:46; Status DC Dexmedetomidine HCl 200 mcg/ Sodium Chloride 50 ml @ 7 mls/hr CONT PRN IV PER PROTOCOL; Start 01/11/18 at 18:38; Stop 01/11/18 at 21:19; Status DC Propofol 100 ml @ As Directed STK-MED ONCE IV ; Start 01/11/18 at 18:43; Stop 01/11/18 at 18:44; Status DC Succinylcholine Chloride (Anectine) 200 mg STK-MED ONCE .ROUTE ; Start at 18:44; Stop 01/11/18 at 18:45; Status DC Fentanyl Citrate 30 ml @ 2.5 mls/hr CONT PRN IV PER PROTOCOL Last administered on 01/22/18at 04:09; Start 01/11/18 at 19:00 Propofol 100 ml @ 4.2 mls/hr CONT PRN IV PER PROTOCOL; Start 01/11/18 at 18: 45; Status Cancel Fentanyl Citrate (Fentanyl 2ml Vial) 25 mcg PRN Q1HR PRN IV SEE COMMENTS.; Start 01/11/18 at 18:45; Stop 01/21/18 at 08:42; Status DC Fentanyl Citrate (Fentanyl 2ml Vial) 50 mcg PRN Q1HR PRN IV SEE COMMENTS. Last administered on 01/11/18at 20:21; Start 01/11/18 at 18:45; Stop 01/21/18 at 08 :42; Status DC Morphine Sulfate (Morphine Sulfate) 2 mg PRN Q1HR PRN IV SEE COMMENTS. Last administered on 01/22/18at 19:53; Start 01/11/18 at 18:45 Morphine Sulfate (Morphine Sulfate) 4 mg PRN Q1HR PRN IV SEE COMMENTS.; Start 01/11/18 at 18:45 Hydromorphone HCl (Dilaudid) 0.2 mg PRN Q1HR PRN IV SEE COMMENTS.; Start 01/11 at 18:45; Stop 01/21/18 at 14:40; Status DC Hydromorphone HCl (Dilaudid) 0.4 mg PRN Q1HR PRN IV SEE COMMENTS.; Start 01/11 at 18:45; Stop 01/21/18 at 14:41; Status DC Morphine Sulfate (Morphine Sulfate) 2 mg PRN Q1HR PRN IV ; Start 01/11/18 at 18:45; Status UNV Morphine Sulfate (Morphine Sulfate) 4 mg PRN Q1HR PRN IV ; Start 01/11/18 at 18:45; Status UNV Midazolam HCl 100 ml @ 1 mls/hr CONT PRN IV PER PROTOCOL Last administered on 01/16/18at 04:52; Start 01/11/18 at 18:45; Stop 01/16/18 at 09:52; Status DC Epinephrine HCl (EPINEPHrine SYRINGE) 1 mg STK-MED ONCE .ROUTE ; Start at 18:56; Stop 01/11/18 at 18:57; Status DC Propofol 100 ml @ 2.103 mls/ hr CONT PRN IV SEE I/O RECORD Last administered on 01/11/18at 20:23; Start 01/11/18 at 19:00 Vecuronium [place] (Norcuron Bolus) 10 mg STK-MED ONCE IV ; Start 01/11/18 at 19:02; Stop 01/11/18 at 19:03; Status DC Vancomycin HCl (Vanco Per Pharmacy) 1 each PRN DAILY PRN MC SEE COMMENTS Last administered on 01/12/18at 11:47; Start 01/11/18 at 20:15; Stop 01/12/18 at 13 :14; Status DC Piperacillin Sod/ Tazobactam Sod (Zosyn Per Pharmacy) 1 each PRN DAILY PRN MC SEE COMMENTS; Start 01/11/18 at 20:15; Stop 01/13/18 at 08:00; Status DC Piperacillin Sod/ Tazobactam Sod 4.5 gm/Sodium Chloride 100 ml @ 200 mls/hr Q6HRS IV Last administered on 01/13/18at 06:48; Start 01/12/18 at 00:00; Stop 01/13/18 at 07:57; Status DC Vancomycin HCl 2 gm/Sodium Chloride 500 ml @ 250 mls/hr 1X ONCE IV Last administered on 01/11/18at 21:00; Start 01/11/18 at 21:00; Stop 01/11/18 at 22 :59; Status DC Insulin Human Lispro (HumaLOG) 0-7 UNITS Q6HRS SQ Last administered on at 05:56; Start 01/12/18 at 00:00; Stop 01/23/18 at 09:00; Status DC Dextrose (Dextrose 50%-Water Syringe) 12.5 gm PRN Q15MIN PRN IV SEE COMMENTS; Start 01/11/18 at 21:00 Sodium Chloride 1,000 ml @ 100 mls/hr Q10H IV Last administered on 01/16/18at 03:59; Start 01/11/18 at 21:00; Stop 01/16/18 at 09:47; Status DC Dexmedetomidine HCl 200 mcg/ Sodium Chloride 50 ml @ 0 mls/hr CONT PRN IV PER PROTOCOL Last administered on 01/22/18at 11:48; Start 01/11/18 at 21:00 Acetaminophen (Tylenol) 650 mg PRN Q6HRS PRN PEG MILD PAIN / TEMP Last administered on 01/21/18at 14:39; Start 01/11/18 at 21:30 Magnesium Sulfate 50 ml @ 25 mls/hr 1X ONCE IV Last administered on at 01:27; Start 01/12/18 at 01:00; Stop 01/12/18 at 02:59; Status DC Sodium Chloride 1,000 ml @ 1,000 mls/hr 1X ONCE IV Last administered on 01/12at 01:00; Start 01/12/18 at 04:30; Stop 01/12/18 at 05:29; Status DC Vancomycin HCl 1.5 gm/Sodium Chloride 500 ml @ 250 mls/hr Q12H IV Last administered on 01/12/18at 08:44; Start 01/12/18 at 09:00; Stop 01/12/18 at 13 :14; Status DC Vancomycin HCl (Vancomycin Trough Level) 1 each 1X ONCE MC ; Start 01/12/18 at 20:30; Stop 01/12/18 at 20:30; Status DC Sodium Chloride 500 ml @ 500 mls/hr 1X ONCE IV Last administered on at 07:26; Start 01/12/18 at 07:00; Stop 01/12/18 at 07:59; Status DC Famotidine (Pepcid Vial) 20 mg BID IVP Last administered on 01/13/18at 20:49; Start 01/12/18 at 09:00; Stop 01/14/18 at 09:40; Status DC Albuterol/ Ipratropium (Duoneb) 3 ml RTQID NEB Last administered on 01/23/18at 11:03; Start 01/12/18 at 08:00 Heparin Sodium (Porcine) (Heparin Sodium) 5,000 unit Q8HRS SQ Last administered on 01/23/18at 05:57; Start 01/12/18 at 14:00 Gemfibrozil (Lopid) 600 mg BIDBFRMEAL PO Last administered on 01/22/18at 08:41 ; Start 01/12/18 at 10:00 Linezolid/Dextrose 300 ml @ 300 mls/hr Q12HR IV Last administered on at 08:39; Start 01/12/18 at 21:00; Stop 01/15/18 at 12:06; Status DC Vecuronium [place] (Norcuron Bolus) 10 mg STK-MED ONCE IV ; Start 01/11/18 at 19:00; Stop 01/13/18 at 07:59; Status DC Succinylcholine Chloride (Anectine) 200 mg STK-MED ONCE .ROUTE ; Start at 19:00; Stop 01/13/18 at 07:59; Status DC Propofol (Diprivan) 1,000 mg STK-MED ONCE IV ; Start 01/11/18 at 19:00; Stop 01/13/18 at 07:59; Status DC Epinephrine HCl (EPINEPHrine SYRINGE) 1 mg STK-MED ONCE .ROUTE ; Start at 19:00; Stop 01/13/18 at 07:59; Status DC Piperacillin Sod/ Tazobactam Sod 2.25 gm/Sodium Chloride 50 ml @ 100 mls/hr Q8HRS IV Last administered on 01/16/18at 05:59; Start 01/13/18 at 14:00; Stop 01/16/18 at 07:31; Status DC Doxycycline Hyclate 100 mg/ Dextrose 100 ml @ 50 mls/hr Q12HR IV Last administered on 01/20/18at 21:30; Start 01/13/18 at 09:00; Stop 01/21/18 at 07 :51; Status DC Sodium Bicarbonate (Sodium Bicarb Adult 8.4% Syr) 100 meq 1X ONCE IV Last administered on 01/13/18at 09:12; Start 01/13/18 at 09:15; Stop 01/13/18 at 09 :16; Status DC Sodium Chloride 1,000 ml @ 1,000 mls/hr Q1H IV ; Start 01/13/18 at 12:30; Status Cancel Sodium Chloride 1,000 ml @ 1,000 mls/hr 1X ONCE IV Last administered on 01/13at 12:15; Start 01/13/18 at 12:15; Stop 01/13/18 at 13:14; Status DC Vecuronium [place] (Norcuron Bolus) 6 mg PRN Q6HRS PRN IV VENT ASYNCHRONY Last administered on 01/15/18at 10:23; Start 01/13/18 at 12:30; Stop 01/15/18 at 14 :51; Status DC Info (Tpn Per Pharmacy) 1 each PRN DAILY PRN MC SEE COMMENTS Last administered on 01/22/18at 08:39; Start 01/14/18 at 09:45 Famotidine (Pepcid Vial) 20 mg DAILY IVP Last administered on 01/21/18at 08:46 ; Start 01/15/18 at 09:00; Stop 01/21/18 at 13:58; Status DC Sodium Bicarbonate (Sodium Bicarb Adult 8.4% Syr) 50 meq STK-MED ONCE .ROUTE ; Start 01/14/18 at 11:12; Stop 01/14/18 at 11:13; Status DC Labetalol HCl (Normodyne Iv Push) 10 mg PRN Q4HRS PRN IVP HYPERTENSION, SEE COMMENTS Last administered on 01/17/18at 10:39; Start 01/14/18 at 11:30; Stop 01/21/18 at 01:57; Status DC Sodium Bicarbonate (Sodium Bicarb Adult 8.4% Syr) 100 meq 1X ONCE IV Last administered on 01/14/18at 11:34; Start 01/14/18 at 11:30; Stop 01/14/18 at 11 :31; Status DC Sodium Chloride 45 meq/Sodium Acetate 45 meq/ Potassium Chloride 30 meq/ Potassium Phosphate 6.8 mmol/Magnesium Sulfate 10 meq/ Calcium Gluconate 10 meq / Multivitamins 10 ml/Chromium/ Copper/Manganese/ Seleni/Zn 1 ml/ Thiamine HCl 100 mg/Folic Acid 1 mg/Total Julieta... 1,512 ml @ 63 mls/hr TPN CONT IV Last administered on 01/14/18at 21:37; Start 01/14/18 at 22:00; Stop 01/15/18 at 21:59; Status DC Labetalol HCl (Normodyne Iv Push) 20 mg PRN Q2HR PRN IVP HYPERTENSION, SEE COMMENTS Last administered on 01/22/18at 19:52; Start 01/14/18 at 15:30 Multivitamins 10 ml/Thiamine HCl 100 mg/Folic Acid 1 mg/Sodium Chloride 1,011.2 ml @ 1,000.088 mls/hr 1X ONCE IV ; Start 01/15/18 at 08:15; Stop 01/15/18 at 09:15; Status UNV Sodium Chloride 1,000 ml @ 1,000 mls/hr Q1H PRN IV hypotension; Start at 09:06; Stop 01/15/18 at 09:32; Status DC Albumin Human 200 ml @ 200 mls/hr 1X ONCE IV ; Start 01/15/18 at 09:15; Stop 01/15/18 at 09:32; Status DC Acetaminophen (Tylenol) 500 mg 1X PRN PRN PO MILD PAIN / TEMP; Start 01/15/18 at 09:15; Stop 01/15/18 at 09:32; Status DC Diphenhydramine HCl (Benadryl) 25 mg 1X PRN PRN IV ITCHING; Start 01/15/18 at 09:15; Stop 01/15/18 at 09:32; Status DC Pharmacy Consult (C.diff Med Screen By Rx) 1 each PRN 1X PRN MC SEE COMMENTS; Start 01/15/18 at 09:30; Status Cancel Sodium Chloride 1,000 ml @ 400 mls/hr Q2H30M PRN IV PATENCY; Start 01/15/18 at 09:06; Stop 01/15/18 at 09:32; Status DC Info (PHARMACY MONITORING -- do not chart) 1 each PRN DAILY PRN MC SEE COMMENTS ; Start 01/15/18 at 09:15; Stop 01/21/18 at 14:04; Status DC Sodium Acetate 75 meq/Potassium Chloride 30 meq/ Potassium Phosphate 6.8 mmol/ Magnesium Sulfate 13 meq/ Calcium Gluconate 10 meq/ Multivitamins 10 ml/Chromium / Copper/Manganese/ Seleni/Zn 1 ml/ Thiamine HCl 100 mg/Folic Acid 1 mg/Total Parenteral Nutrition/Amino Acids/Dextro... 1,492 ml @ 62.167 mls/ hr TPN CONT IV ; Start 01/15/18 at 22:00; Stop 01/15/18 at 22:00; Status DC Sodium Acetate 75 meq/Potassium Chloride 30 meq/ Potassium Phosphate 6.8 mmol/ Magnesium Sulfate 13 meq/ Calcium Gluconate 10 meq/ Multivitamins 10 ml/Chromium / Copper/Manganese/ Seleni/Zn 1 ml/ Thiamine HCl 100 mg/Folic Acid 1 mg/Total Parenteral Nutrition/Amino Acids/Dextro... 1,512 ml @ 63 mls/hr TPN CONT IV Last administered on 01/15/18at 22:07; Start 01/15/18 at 22:00; Stop 01/16/18 at 21:59; Status DC Vecuronium [place] (Norcuron Bolus) 6 mg PRN Q4HRS PRN IV VENT ASYNCHRONY Last administered on 01/21/18at 02:08; Start 01/15/18 at 15:00 Meropenem 500 mg/ Sodium Chloride 50 ml @ 100 mls/hr Q12HR IV Last administered on 01/21/18at 08:46; Start 01/16/18 at 08:00; Stop 01/21/18 at 14 :03; Status DC Metronidazole 100 ml @ 100 mls/hr Q8HRS IV Last administered on 01/21/18at 14: 42; Start 01/16/18 at 08:00; Stop 01/21/18 at 16:23; Status DC Chlorhexidine Gluconate (Peridex) 15 ml BID MM ; Start 01/16/18 at 21:00; Status Cancel Dextrose/Sodium Chloride 1,000 ml @ 50 mls/hr Q20H IV ; Start 01/16/18 at 10: 00; Stop 01/17/18 at 13:11; Status DC Lorazepam 100 mg/ Sodium Chloride 100 ml @ 2 mls/hr CONT PRN IV SEE PROTOCOL Last administered on 01/21/18at 02:22; Start 01/16/18 at 09:45 Potassium Acetate 30 meq/Potassium Phosphate 3.4 mmol/Magnesium Sulfate 15 meq/ Calcium Gluconate 10 meq/ Multivitamins 10 ml/Chromium/ Copper/Manganese/ Seleni /Zn 1 ml/ Thiamine HCl 100 mg/Folic Acid 1 mg/Total Parenteral Nutrition/Amino Acids/Dextrose 1,512 ml @ 63 mls/hr TPN CONT IV Last administered on at 21:52; Start 01/16/18 at 22:00; Stop 01/17/18 at 21:59; Status DC Hydralazine HCl (Apresoline Inj) 20 mg PRN TID PRN IVP SBP>160 2ND CHOICE Last administered on 01/22/18at 16:31; Start 01/16/18 at 15:30 Nicardipine HCl 50 mg/Sodium Chloride 270 ml @ 27 mls/hr CONT PRN IV SEE I/O RECORD Last administered on 01/23/18at 06:03; Start 01/16/18 at 16:30 Dextrose 500 ml @ 500 mls/hr 1X ONCE IV ; Start 01/17/18 at 07:30; Stop at 10:53; Status DC Insulin Glargine (Lantus) 10 units QHS SQ ; Start 01/17/18 at 21:00; Status Cancel Insulin Glargine (Lantus) 10 units DAILY10 SQ Last administered on 01/18/18at 11:12; Start 01/17/18 at 10:00; Stop 01/18/18 at 16:41; Status DC Dextrose 1,000 ml @ 75 mls/hr [id number] IV Last administered on 01/20/18at 04:25 ; Start 01/17/18 at 11:00; Stop 01/20/18 at 15:40; Status DC Potassium Acetate 30 meq/Potassium Phosphate 3.4 mmol/Magnesium Sulfate 18 meq/ Calcium Gluconate 10 meq/ Multivitamins 10 ml/Chromium/ Copper/Manganese/ Seleni /Zn 1 ml/ Thiamine HCl 100 mg/Folic Acid 1 mg/Total Parenteral Nutrition/Amino Acids/Dextrose 1,728 ml @ 72 mls/hr TPN CONT IV Last administered on at 21:25; Start 01/17/18 at 22:00; Stop 01/18/18 at 21:59; Status DC Vecuronium [place] 100 mg/ Dextrose 100 ml @ 7.89 mls/hr CONT PRN IV SEE I/O RECORD; Start 01/17/18 at 19:45; Status Cancel Vecuronium [place] 100 mg/ Miscellaneous 100 ml @ 7.89 mls/hr CONT PRN IV SEE I/O RECORD Last administered on 01/18/18at 22:55; Start 01/17/18 at 19:45 Insulin Human Lispro (HumaLOG) 10 units 1X ONCE SQ ; Start 01/18/18 at 06:30; Stop 01/18/18 at 06:31; Status DC Insulin Human Lispro (HumaLOG) 8 units Q4HRS SQ Last administered on at 12:28; Start 01/18/18 at 08:30; Stop 01/18/18 at 16:32; Status DC Magnesium Sulfate 50 ml @ 25 mls/hr PRN DAILY PRN IV for mag < 1.7 on am labs Last administered on 01/18/18at 11:44; Start 01/18/18 at 11:00 Desmopressin Acetate (Ddavp) 4 mcg BID SQ Last administered on 01/18/18at 21:38 ; Start 01/18/18 at 11:30; Stop 01/18/18 at 21:01; Status DC Magnesium Sulfate/ Dextrose 100 ml @ 100 mls/hr 1X ONCE IV Last administered on 01/18/18at 11:49; Start 01/18/18 at 11:30; Stop 01/18/18 at 12:29; Status DC Potassium Acetate 30 meq/Magnesium Sulfate 25 meq/ Calcium Gluconate 10 meq/ Multivitamins 10 ml/Chromium/ Copper/Manganese/ Seleni/Zn 1 ml/ Thiamine HCl 100 mg/Folic Acid 1 mg/Total Parenteral Nutrition/Amino Acids/Dextrose/ Fat Emulsion Intravenous 3,000 ml @ 125 mls/hr TPN CONT IV Last administered on 01/18/18at 21:50; Start 01/18/18 at 22:00; Stop 01/19/18 at 21:59; Status DC Daptomycin 780 mg/ Sodium Chloride 50 ml @ 100 mls/hr Q48H IV Last administered on 01/20/18at 14:25; Start 01/18/18 at 15:30; Stop 01/21/18 at 07 :51; Status DC Insulin Human Regular 150 unit/ Sodium Chloride 151.5 ml @ 0 mls/hr CONT PRN IV SEE I/O RECORD Last administered on 01/21/18at 15:43; Start 01/18/18 at 16: 30 Dextrose (Dextrose 50%-Water Syringe) 12.5 gm PRN Q15MIN PRN IV LOW BLOOD SUGAR ; Start 01/18/18 at 16:30; Status UNV Norepinephrine Bitartrate 250 ml @ 1.875 mls/ hr CONT PRN IV SEE I/O RECORD; Start 01/18/18 at 16:30 Desmopressin Acetate (Ddavp) 6 mcg BID SQ Last administered on 01/20/18at 21:00 ; Start 01/19/18 at 12:30; Stop 01/21/18 at 10:41; Status DC Info (Icu Electrolyte Protocol) 1 ea CONT PRN PRN MC PER PROTOCOL; Start 01/19 at 12:30 Potassium Acetate 60 meq/Magnesium Sulfate 25 meq/ Calcium Gluconate 10 meq/ Multivitamins 10 ml/Chromium/ Copper/Manganese/ Seleni/Zn 1 ml/ Thiamine HCl 100 mg/Folic Acid 1 mg/Total Parenteral Nutrition/Amino Acids/Dextrose/ Fat Emulsion Intravenous 3,000 ml @ 125 mls/hr TPN CONT IV Last administered on 01/19/18at 21:58; Start 01/19/18 at 22:00; Stop 01/20/18 at 21:59; Status DC Potassium Chloride/Water 50 ml @ 50 mls/hr Q1H IV Last administered on at 19:24; Start 01/19/18 at 18:00; Stop 01/19/18 at 19:59; Status DC Potassium Chloride/Water 50 ml @ 50 mls/hr Q1H IV ; Start 01/19/18 at 17:15; Stop 01/19/18 at 21:14; Status UNV Potassium Chloride/Water 50 ml @ 50 mls/hr Q1HR IV ; Start 01/19/18 at 18:00; Stop 01/19/18 at 23:59; Status UNV Lidocaine/Sodium Bicarbonate (Buffered Lidocaine 1%) 6 ml 1X ONCE INJ ; Start 01/20/18 at 07:45; Stop 01/20/18 at 07:47; Status DC Potassium Acetate 60 meq/Magnesium Sulfate 25 meq/ Calcium Gluconate 10 meq/ Multivitamins 10 ml/Chromium/ Copper/Manganese/ Seleni/Zn 1 ml/ Thiamine HCl 100 mg/Folic Acid 1 mg/Total Parenteral Nutrition/Amino Acids/Dextrose 3,000 ml @ 125 mls/hr TPN CONT IV Last administered on 01/20/18at 21:54; Start at 22:00; Stop 01/21/18 at 21:59; Status DC Sodium Chloride 1,000 ml @ 75 mls/hr [id number] IV Last administered on at 08:46; Start 01/20/18 at 15:45; Stop 01/21/18 at 10:41; Status DC Dextrose 1,000 ml @ 75 mls/hr [id number] IV Last administered on 01/23/18at 10:45 ; Start 01/21/18 at 10:45 Desmopressin Acetate 6 mcg/ Sodium Chloride 51.5 ml @ 102 mls/hr 1X ONCE IV Last administered on 01/21/18at 11:00; Start 01/21/18 at 11:00; Stop 01/21/18 at 11:30; Status DC Potassium Acetate 60 meq/Magnesium Sulfate 25 meq/ Calcium Gluconate 10 meq/ Multivitamins 10 ml/Chromium/ Copper/Manganese/ Seleni/Zn 1 ml/ Thiamine HCl 100 mg/Folic Acid 1 mg/Total Parenteral Nutrition/Amino Acids/Dextrose/ Fat Emulsion Intravenous 3,000 ml @ 125 mls/hr TPN CONT IV ; Start 01/21/18 at 22 :00; Stop 01/21/18 at 22:00; Status DC Tramadol HCl (Ultram) 50 mg DAILY PRN PO PAIN; Start 01/21/18 at 12:00 Venlafaxine HCl (Effexor) 50 mg BID PO Last administered on 01/22/18at 08:41; Start 01/21/18 at 14:00 Amlodipine Besylate (Norvasc) 10 mg DAILY PO Last administered on 01/22/18at 08 :42; Start 01/21/18 at 14:00 Ibuprofen (Motrin) 400 mg PRN Q6HRS PRN PO INFLAMMATION; Start 01/21/18 at 13: 45 Losartan Potassium (Cozaar) 25 mg DAILY PO Last administered on 01/22/18at 08: 43; Start 01/21/18 at 14:00 Neomycin/ Polymyxin/ Dexamethasone (Maxitrol) 1 drop QID OD Last administered on 01/23/18at 08:32; Start 01/21/18 at 17:00 Pantoprazole Sodium (Protonix) 40 mg DAILYAC PO ; Start 01/22/18 at 07:30 Magnesium Oxide (Magnesium Oxide) 400 mg DAILY PO Last administered on at 08:43; Start 01/22/18 at 09:00 Multivitamins (Thera M Plus) 1 tab DAILY PO Last administered on 01/22/18at 08: 40; Start 01/22/18 at 09:00 Non-Formulary Medication (Nebivolol Hcl (Bystolic)) 20 mg DAILY PO ; Start at 09:00; Status UNV Metoprolol Tartrate (Lopressor) 50 mg BID PO Last administered on 01/22/18at 08 :42; Start 01/21/18 at 14:00 Tizanidine HCl (Zanaflex) 4 mg TID PO Last administered on 01/22/18at 14:00; Start 01/21/18 at 14:00 Meropenem 500 mg/ Sodium Chloride 50 ml @ 100 mls/hr Q8HRS IV ; Start at 14:30; Stop 01/21/18 at 16:22; Status DC Vancomycin HCl (Vancomycin Oral Solution) 125 mg [id number] PO Last administered on 01/22/18at 14:11; Start 01/21/18 at 17:00 Potassium Acetate 60 meq/Magnesium Sulfate 25 meq/ Calcium Gluconate 10 meq/ Multivitamins 10 ml/Chromium/ Copper/Manganese/ Seleni/Zn 1 ml/ Thiamine HCl 100 mg/Folic Acid 1 mg/Total Parenteral Nutrition/Amino Acids/Dextrose 3,000 ml @ 125 mls/hr TPN CONT IV Last administered on 01/21/18at 22:22; Start at 22:00; Stop 01/22/18 at 22:00; Status DC Potassium Acetate 60 meq/Magnesium Sulfate 15 meq/ Calcium Gluconate 10 meq/ Multivitamins 10 ml/Chromium/ Copper/Manganese/ Seleni/Zn 1 ml/ Thiamine HCl 100 mg/Folic Acid 1 mg/Total Parenteral Nutrition/Amino Acids/Dextrose 3,000 ml @ 125 mls/hr TPN CONT IV Last administered on 01/22/18at 22:23; Start at 22:00; Stop 01/23/18 at 21:59 Metronidazole 100 ml @ 100 mls/hr Q8HRS IV Last administered on 01/23/18at 05: 56; Start 01/22/18 at 22:00 Clonidine HCl (Catapres Tts-1) 1 patch WEEKLY TD Last administered on at 20:52; Start 01/22/18 at 21:00 Enalaprilat (Vasotec Inj) 1.25 mg Q6HRS IVP ; Start 01/22/18 at 21:00 Insulin Glargine (Lantus) 20 units BID SQ Last administered on 01/23/18at 09:27 ; Start 01/23/18 at 09:00 Insulin Human Lispro (HumaLOG) 0-9 UNITS Q6HRS SQ Last administered on at 09:35; Start 01/23/18 at 09:00 Desmopressin Acetate 6 mcg/ Sodium Chloride 51.5 ml @ 102 mls/hr BID IV ; Start 01/23/18 at 11:00 Potassium Chloride/Water 50 ml @ 50 mls/hr 1X ONCE IV ; Start 01/23/18 at 11: 00; Stop 01/23/18 at 11:59 Active Scripts [facility] Maxitrol Eye Drops ([place]/Polymyx B Sulf/Dexameth) 5 Ml Drops.susp 1 Drop OD QID Multivitamins (Multivitamin) 1 Each Tablet 1 Tab PO DAILY Magnesium (Magnesium Oxide) 400 Mg Capsule 1 Cap PO DAILY Calcium (Calcium Carbonate) 500 Mg Tab.chew 500 Mg PO Lansoprazole 30 Mg Capsule.dr 1 Cap PO DAILY Losartan Potassium 25 Mg Tablet 25 Mg PO DAILY Tizanidine Hcl 4 Mg Tablet 1 Tab PO TID Tramadol Hcl 50 Mg Tablet 50 Mg PO DAILY PRN Bystolic (Nebivolol Hcl) 20 Mg Tablet 20 Mg PO DAILY Cymbalta (Duloxetine Hcl) 20 Mg Capsule.dr 1 Cap PO DAILY Valacyclovir (Valacyclovir Hcl) 1,000 Mg Tablet 1 Tab PO DAILY Ibuprofen 400 Mg Tablet 400 Mg PO PRN Q6HRS PRN Bystolic (Nebivolol) 10 Mg Tablet 20 Mg PO DAILY Amlodipine Besylate 10 Mg Tablet 10 Mg PO DAILY Vitals/I & O Vital Sign - Last 24 Hours 01/22/18 01/22/18 01/22/18 01/22/18 12:00 12:00 13:00 13:40 Temp 99.9 99.9 Pulse 92 89 Resp 26 B/P (MAP) 137/79 (98) 149/88 (108) Pulse Ox 97 97 98 O2 Delivery Mechanical Ventilator Ventilator Ventilator Ventilator 01/22/18 01/22/18 01/22/18 01/22/18 14:00 14:30 15:00 16:00 Temp 99.1 99.1 Pulse 88 88 94 Resp 26 20 17 B/P (MAP) 155/85 (108) 157/90 (112) 175/91 (119) Pulse Ox 98 96 90 95 O2 Delivery Ventilator Nasal Cannula Nasal Cannula Nasal Cannula O2 Flow Rate 2.0 2.0 2.0 01/22/18 01/22/18 01/22/18 01/22/18 16:00 16:31 17:00 17:31 Pulse 95 104 105 Resp 16 B/P (MAP) 191/105 172/110 (130) 172/110 Pulse Ox 96 O2 Delivery Nasal Cannula Nasal Cannula O2 Flow Rate 2.0 2.0 01/22/18 01/22/18 01/22/18 01/22/18 18:00 19:00 19:52 19:53 Temp 98.1 98.1 Pulse 96 98 97 Resp 18 17 B/P (MAP) 177/103 (127) 158/102 (120) 165/97 Pulse Ox 96 98 94 O2 Delivery Nasal Cannula Nasal Cannula Nasal Cannula O2 Flow Rate 2.0 2.0 2.0 01/22/18 01/22/18 01/22/18 01/22/18 19:58 20:00 20:00 20:23 Pulse 94 Resp 17 B/P (MAP) 165/97 (119) Pulse Ox 95 94 94 O2 Delivery Nasal Cannula Nasal Cannula Nasal Cannula Nasal Cannula O2 Flow Rate 2.0 2.0 2.0 2.0 01/22/18 01/22/18 01/22/18 01/22/18 21:00 22:00 23:00 23:59 Pulse 96 104 98 Resp 12 15 22 B/P (MAP) 167/102 (123) 112/89 (97) 151/91 (111) Pulse Ox 97 97 100 O2 Delivery Nasal Cannula Nasal Cannula Nasal Cannula Nasal Cannula O2 Flow Rate 2.0 2.0 2.0 2.0 01/23/18 01/23/18 01/23/18 01/23/18 00:00 01:00 02:00 03:00 Temp 98.5 98.5 Pulse 104 104 109 109 Resp 22 25 23 B/P (MAP) 139/77 (97) 158/80 (106) 168/89 (115) 144/83 (103) Pulse Ox 100 99 98 100 O2 Delivery Nasal Cannula Nasal Cannula Nasal Cannula Nasal Cannula O2 Flow Rate 2.0 2.0 2.0 2.0 01/23/18 01/23/18 01/23/18 01/23/18 04:00 04:00 05:00 06:00 Temp 98.7 98.7 Pulse 108 104 102 Resp 22 20 20 B/P (MAP) 162/88 (112) 164/92 (116) 176/91 (119) Pulse Ox 99 98 98 O2 Delivery Nasal Cannula Nasal Cannula Nasal Cannula Nasal Cannula O2 Flow Rate 2.0 2.0 01/23/18 01/23/18 01/23/18 01/23/18 07:00 07:35 08:00 08:00 Temp 98.2 98.2 Pulse 107 113 Resp 20 21 B/P (MAP) 138/84 (102) 149/88 (108) Pulse Ox 98 100 98 O2 Delivery Room Air Room Air Room Air Room Air 01/23/18 01/23/18 09:00 10:00 Pulse 110 112 Resp 18 20 B/P (MAP) 150/74 (99) 144/80 (101) Pulse Ox 98 98 O2 Delivery Room Air Room Air Intake and Output 01/22/18 01/22/18 01/23/18 15:00 23:00 07:00 Intake Total 318.45 ml 3647.92 ml 1332 ml Output Total 2020 ml 2000 ml 1850 ml Balance -1701.55 ml 1647.92 ml -518 ml DREA SORENSON III DO Jan 23, 2018 11:54
[2018-01-23] MEDS: DESMOPRESSIN IV SCH ×2 (12:00→20:31)
[2018-01-23] MEDS: NORMAL SALINE IV SCH ×2 (12:00→20:31)
[2018-01-23] MEDS: TPN PER PHARMACY MC PRN (13:59)
[2018-01-23] MEDS: MORPHINE SULFATE 2 MG/ML VIAL. IV PRN (16:25)
[2018-01-23] MEDS ORDERED: PANTOPRAZOLE 40 MG TABLET.DR. PO ONE (19:15)
[2018-01-23] MEDS: HALOPERIDOL LACTATE 5 MG/ML VIAL. IVP PRN (19:29)
[2018-01-23] MEDS ORDERED: DEXTROSE 70% IV SCH ×9 (22:00)
[2018-01-23] MEDS ORDERED: TOTAL PARENTERAL NUTRITION IV SCH ×9 (22:00)
[2018-01-23] MEDS ORDERED: [UNRECOGNIZED DRUG - OTHER] IV SCH ×9 (22:00)
[2018-01-23] MEDS ORDERED: AMINO ACIDS IV SCH ×9 (22:00)
[2018-01-23] MEDS: traMADol 50 MG TABLET PO PRN (22:22)
[2018-01-24] VITALS (14 sets, daily range): BP systolic 114–168; BP diastolic 77–103
[2018-01-24] MEDS: INSULIN LISPRO 300 UNITS/3 ML INSULN.PEN. SQ SCH ×5 (00:02→21:00)
[2018-01-24] MEDS: MORPHINE SULFATE 4 MG/ML VIAL. IV PRN ×2 (00:35→10:01)
[2018-01-24] MEDS: ENALAPRILAT 1.25 MG/ML VIAL. IVP SCH ×3 (06:00→12:00)
[2018-01-24] MEDS: HEPARIN for SUB-Q USE 5,000 UNIT/ML VIAL. SQ SCH ×3 (06:47→23:41)
--- NOTE | 2018-01-24 06:47 | RAD ---
INDICATION: central line placement COMPARISON: January 21, 2018 FINDINGS: Single view of chest obtained. Hypoexpanded examination of the lungs with interstitial and groundglass opacities bilaterally. Right-sided vascular catheter with tip projecting over the expected location of the SVC. Cardiomediastinal contour is prominent in size although could be from portable technique. IMPRESSION: 1. Right-sided vascular catheter with tip projecting over expected location of the SVC. 2. Hypoexpanded exam with interstitial and groundglass opacities bilaterally. A portion of this could be secondary to vascular crowding from hypoexpansion but superimposed edema or infiltrate is possible given this finding. Overall severity is similar to prior. Electronically signed by: Odin Sahu MD (01/24/2018 6:44 AM) [facility]
[2018-01-24] MEDS: IV DEXTROSE 5% 1,000 ML IV SCH ×2 (06:52→16:24)
[2018-01-24 07:35] LABS: BASO # 0.2 x10^3/uL (0.0-0.2); BASO % 1 % (0-3); EOS # 0.5 x10^3/uL (0.0-0.7); EOS % 3 % (0-3); HEMATOCRIT 35.3 % (39.0-53.0); HEMOGLOBIN 11.7 g/dL (13.0-17.5); LYMPH # 2.1 x10^3/uL (1.0-4.8); LYMPH % 12 % (24-48); MEAN CORPUSCULAR HEMOGLOBIN 32 pg (25-35); MEAN CORPUSCULAR HGB CONC 33 g/dL (31-37); MEAN CORPUSCULAR VOLUME 97 fL (79-100); MONO # 0.9 x10^3/uL (0.0-1.1); MONO % 5 % (0-9); NEUT # 14.4 x10^3uL (1.8-7.7); NEUT % 80 % (31-73); PLATELET COUNT 532 x10^3/uL (140-400); RED BLOOD COUNT 3.65 x10^6/uL (4.30-5.70); RED CELL DISTRIBUTION WIDTH 14.1 % (11.5-14.5); WHITE BLOOD COUNT 18.2 x10^3/uL (4.0-11.0)
[2018-01-24 07:47] LABS: CALCIUM 9.4 mg/dL (8.5-10.1); CREATININE 1.8 mg/dL (0.7-1.3); GFR 41.4; PHOSPHORUS 4.7 mg/dL (2.6-4.7); POTASSIUM 3.4 mmol/L (3.5-5.1)
--- NOTE | 2018-01-24 07:50 | PDOC ---
Infectious Disease Note Subjective Subjective pt has been awake, appropriate ROS ROS no n/v/abd pain, does have rectal tube Vital Sign Vital Signs Vital Signs Date Time Temp Pulse Resp B/P (MAP) Pulse Ox O2 Delivery O2 Flow Rate FiO2 01/24/18 07:00 102 23 142/92 (109) 99 Room Air 01/24/18 04:00 98.6 98.6 Physical Exam PHYSICAL EXAM GENERAL: awake ,comfortable HEENT: Pupils rr LUNGS: Diminished aeration in the bases. HEART: S1 S2 Regular rhythm. ABDOMEN: Obese. BS active, no grimace or guarding to palpation. GENITOURINARY: Indwelling Cook in place. EXTREMITIES: No edema or cyanosis SKIN: He has tattoos. warm without rash NEUROLOGIC: Alert, not oriented to year or place RIJ - clean. Labs Lab Laboratory Tests Test 01/23/18 08:39 01/23/18 10:00 01/23/18 12:53 01/23/18 18:10 Glucose (Fingerstick) 211 mg/dL (70-99) 247 mg/dL (70-99) 241 mg/dL (70-99) Sodium Level 154 mmol/L (136-145) Test 01/23/18 20:44 01/23/18 21:00 01/23/18 23:59 01/24/18 06:41 Glucose (Fingerstick) 224 mg/dL (70-99) 210 mg/dL (70-99) 215 mg/dL (70-99) Sodium Level 147 mmol/L (136-145) Test 01/24/18 07:20 White Blood Count 18.2 x10^3/uL (4.0-11.0) Red Blood Count 3.65 x10^6/uL (4.30-5.70) Hemoglobin 11.7 g/dL (13.0-17.5) Hematocrit 35.3 % (39.0-53.0) Mean Corpuscular Volume 97 fL (79-100) Mean Corpuscular Hemoglobin 32 pg (25-35) Mean Corpuscular Hemoglobin Concent 33 g/dL (31-37) Red Cell Distribution Width 14.1 % (11.5-14.5) Platelet Count 532 x10^3/uL (140-400) Neutrophils (%) (Auto) 80 % (31-73) Lymphocytes (%) (Auto) 12 % (24-48) Monocytes (%) (Auto) 5 % (0-9) Eosinophils (%) (Auto) 3 % (0-3) Basophils (%) (Auto) 1 % (0-3) Neutrophils # (Auto) 14.4 x10^3uL (1.8-7.7) Lymphocytes # (Auto) 2.1 x10^3/uL (1.0-4.8) Monocytes # (Auto) 0.9 x10^3/uL (0.0-1.1) Eosinophils # (Auto) 0.5 x10^3/uL (0.0-0.7) Basophils # (Auto) 0.2 x10^3/uL (0.0-0.2) Sodium Level 143 mmol/L (136-145) Potassium Level 3.4 mmol/L (3.5-5.1) Chloride Level 110 mmol/L (98-107) Carbon Dioxide Level 19 mmol/L (21-32) Anion Gap 14 (6-14) Blood Urea Nitrogen 48 mg/dL (8-26) Creatinine 1.8 mg/dL (0.7-1.3) Estimated GFR (Cockcroft-Gault) 41.4 Glucose Level 216 mg/dL (70-99) Calcium Level 9.4 mg/dL (8.5-10.1) Phosphorus Level 4.7 mg/dL (2.6-4.7) Magnesium Level 2.0 mg/dL (1.8-2.4) Triglycerides Level 256 mg/dL (0-150) Micro BC 1/3 G + cocci, coag neg staph Objective Assessment GPC bacteremia (1 of 3 bottles) from 01/16 , contaminant Pancreatitis Fever likely sec to above/+- aspiration/? infection - better DENISHA Aspiration pneumonia. - Group A strep/Strep pneumo/legionella neg. Gram stain from sputum GPC in pairs from 01/12, no growth Acute encephalopathy with hallucinations and behavioral change Lactic acidosis, improved. Heavy alcohol use. Hyperglycemia. Worsening back pain with urinary incontinence prior to admission. History of methicillin-resistant Staphylococcus aureus - in back Morbid obesity C diff + Plan Plan of Care po vancomycin/ d/c iv flagyl supportive care ALAN KUMARI MD Jan 24, 2018 07:50
[2018-01-24] MEDS: IPRATRPIUM/ALBUTEROL 0.5/2.5MG 3 ML NEBU. NEB SCH ×4 (08:05→19:31)
[2018-01-24] MEDS: LOSARTAN POTASSIUM 25 MG TABLET. PO SCH (09:22)
[2018-01-24] MEDS: GEMFIBROZIL 600 MG TABLET. PO SCH ×2 (09:25→16:24)
[2018-01-24] MEDS: tiZANidine 4 MG TABLET. PO SCH ×3 (09:25→21:08)
[2018-01-24] MEDS: METOPROLOL TART IMMED RELEASE 50 MG TABLET. PO SCH ×2 (09:25→21:08)
[2018-01-24] MEDS: PANTOPRAZOLE 40 MG TABLET.DR. PO SCH (09:25)
[2018-01-24] MEDS: VANCOMYCIN 125 MG/2.5 ML ORAL SOLUTION. PO SCH ×4 (09:26→21:07)
[2018-01-24] MEDS: VENLAFAXINE 50 MG TABLET. PO SCH ×2 (09:26→21:07)
[2018-01-24] MEDS: MAGNESIUM OXIDE 400 MG TABLET PO SCH (09:26)
[2018-01-24] MEDS: MULTIVITAMIN with MINERAL TABLET. PO SCH (09:26)
[2018-01-24] MEDS: amLODIPine BESYLATE 10 MG TABLET PO SCH (09:26)
[2018-01-24] MEDS: NEO/POLYMYX/DEXAMETH OPHTH SUSPENSION 5ML BOTTLE. OD SCH ×4 (09:27→21:07)
[2018-01-24] MEDS: INSULIN GLARGINE 300 UNITS/3 ML INSULN.PEN. SQ SCH ×2 (09:42→21:16)
--- NOTE | 2018-01-24 10:22 | PDOC ---
Subjective: Subjective: No abd pain, wants to eat. Objective: Objective: Per RN - failed swallow eval yesterday but okayed to take PO meds. Still w/ rectal tube and on TPN. Vital Signs: Vital Signs Date Time Temp Pulse Resp B/P (MAP) Pulse Ox O2 Delivery O2 Flow Rate FiO2 01/24/18 10:01 17 Room Air 01/24/18 09:26 97 140/91 01/24/18 08:07 98 01/24/18 08:00 98.9 98.9 Labs: Laboratory Tests Test 01/23/18 12:53 01/23/18 18:10 01/23/18 20:44 01/23/18 21:00 Glucose (Fingerstick) 247 mg/dL 241 mg/dL 224 mg/dL Sodium Level 147 mmol/L Test 01/23/18 23:59 01/24/18 06:41 01/24/18 07:20 01/24/18 09:40 Glucose (Fingerstick) 210 mg/dL 215 mg/dL 184 mg/dL White Blood Count 18.2 x10^3/uL Red Blood Count 3.65 x10^6/uL Hemoglobin 11.7 g/dL Hematocrit 35.3 % Mean Corpuscular Volume 97 fL Mean Corpuscular Hemoglobin 32 pg Mean Corpuscular Hemoglobin Concent 33 g/dL Red Cell Distribution Width 14.1 % Platelet Count 532 x10^3/uL Neutrophils (%) (Auto) 80 % Lymphocytes (%) (Auto) 12 % Monocytes (%) (Auto) 5 % Eosinophils (%) (Auto) 3 % Basophils (%) (Auto) 1 % Neutrophils # (Auto) 14.4 x10^3uL Lymphocytes # (Auto) 2.1 x10^3/uL Monocytes # (Auto) 0.9 x10^3/uL Eosinophils # (Auto) 0.5 x10^3/uL Basophils # (Auto) 0.2 x10^3/uL Sodium Level 143 mmol/L Potassium Level 3.4 mmol/L Chloride Level 110 mmol/L Carbon Dioxide Level 19 mmol/L Anion Gap 14 Blood Urea Nitrogen 48 mg/dL Creatinine 1.8 mg/dL Estimated GFR (Cockcroft-Gault) 41.4 Glucose Level 216 mg/dL Calcium Level 9.4 mg/dL Phosphorus Level 4.7 mg/dL Magnesium Level 2.0 mg/dL Triglycerides Level 256 mg/dL PE: GEN: NAD LUNGS: CTAB HEART: RRR ABD: S/ND/NT - rectal tube w/ watery brown contents NEURO/PSYCH: A & O 3 A/P: Pancreatitis - alcohol, hypertriglyceridemia C Diff - oral vanco per ID -- Await ongoing swallow evals. Supportive care per GI. MARILYN VASQUEZ Jan 24, 2018 10:22
[2018-01-24] MEDS: DESMOPRESSIN IV SCH ×2 (10:43→21:06)
[2018-01-24] MEDS: NORMAL SALINE IV SCH ×2 (10:43→21:06)
--- NOTE | 2018-01-24 10:46 | PDOC ---
Renal-Progress Notes Subjective Notes Notes NONE History of Present Illness Hx of present illness STABLE Vitals Vitals Vital Signs Date Time Temp Pulse Resp B/P (MAP) Pulse Ox O2 Delivery O2 Flow Rate FiO2 01/24/18 10:32 21 Room Air 01/24/18 10:00 94 151/90 (110) 99 01/24/18 08:00 98.9 98.9 Weight Weight [ ] I.O. Intake and Output Intake and Output 01/24/18 07:00 Intake Total 4449.37 ml Output Total 5315 ml Balance -865.63 ml IV Total 4449.37 ml Output Urine Total 5315 ml Labs Labs Laboratory Tests Test 01/23/18 12:53 01/23/18 18:10 01/23/18 20:44 01/23/18 21:00 Glucose (Fingerstick) 247 mg/dL (70-99) 241 mg/dL (70-99) 224 mg/dL (70-99) Sodium Level 147 mmol/L (136-145) Test 01/23/18 23:59 01/24/18 06:41 01/24/18 07:20 01/24/18 09:40 Glucose (Fingerstick) 210 mg/dL (70-99) 215 mg/dL (70-99) 184 mg/dL (70-99) White Blood Count 18.2 x10^3/uL (4.0-11.0) Red Blood Count 3.65 x10^6/uL (4.30-5.70) Hemoglobin 11.7 g/dL (13.0-17.5) Hematocrit 35.3 % (39.0-53.0) Mean Corpuscular Volume 97 fL (79-100) Mean Corpuscular Hemoglobin 32 pg (25-35) Mean Corpuscular Hemoglobin Concent 33 g/dL (31-37) Red Cell Distribution Width 14.1 % (11.5-14.5) Platelet Count 532 x10^3/uL (140-400) Neutrophils (%) (Auto) 80 % (31-73) Lymphocytes (%) (Auto) 12 % (24-48) Monocytes (%) (Auto) 5 % (0-9) Eosinophils (%) (Auto) 3 % (0-3) Basophils (%) (Auto) 1 % (0-3) Neutrophils # (Auto) 14.4 x10^3uL (1.8-7.7) Lymphocytes # (Auto) 2.1 x10^3/uL (1.0-4.8) Monocytes # (Auto) 0.9 x10^3/uL (0.0-1.1) Eosinophils # (Auto) 0.5 x10^3/uL (0.0-0.7) Basophils # (Auto) 0.2 x10^3/uL (0.0-0.2) Sodium Level 143 mmol/L (136-145) Potassium Level 3.4 mmol/L (3.5-5.1) Chloride Level 110 mmol/L (98-107) Carbon Dioxide Level 19 mmol/L (21-32) Anion Gap 14 (6-14) Blood Urea Nitrogen 48 mg/dL (8-26) Creatinine 1.8 mg/dL (0.7-1.3) Estimated GFR (Cockcroft-Gault) 41.4 Glucose Level 216 mg/dL (70-99) Calcium Level 9.4 mg/dL (8.5-10.1) Phosphorus Level 4.7 mg/dL (2.6-4.7) Magnesium Level 2.0 mg/dL (1.8-2.4) Triglycerides Level 256 mg/dL (0-150) Micro Micro Microbiology 01/18/18 Blood Culture - Final, Complete NO GROWTH AFTER 5 DAYS 01/13/18 Throat Culture - Final, Complete 01/13/18 - Final, Complete Review of Systems Constitutional: yes: unresponsive Physical Exam General Appearance: no apparent distress Skin: warm Respiratory: decreased breath sounds Heart: S1S2 Abdomen: soft, other (HYPOACTIVE) Genitourinary: monteiro catheter Extremities: pulses present, no edema Neurology: other (sedated) Assessment Assessment IMP NEPHROGENIC DI-UO STILL UP ETOH ABUSE HYPERNATREMIA HYPOKALEMIA DENISHA-BETTER WITH CR DOWN TO 1.4 PANCREATITIS ACUTE RESP FAILURE ASP PNEUMONIA PLAN TPN ABX DESMOPRESSIN IV CONT D5 W WILL FOLLOW SUPPORTIVE CARE RENNY KWAN MD Jan 24, 2018 10:46
--- NOTE | 2018-01-24 11:25 | PDOC ---
PROGRESS NOTES Chief Complaint Chief Complaint Acute respiratory failure ETOH intoxication versus dependence, not protecting airway hence intubated at the emergency room LLL pneumonia Sepsis likely secondary to LLL pneumonia Severe agitation, could be secondary to alcohol withdrawal versus sepsis versus others Pancreatitis - hyperglycemia with hypertriglyceridemia Elevated BNP and troponin elevation Obesity BMI 39 - poss obstructive sleep apnea-hypopnea syndrome Left hand pain and swelling Leukocytosis H/o alcohol abuse H/o anxiety H/o GERD H/o hypertension History of Present Illness History of Present Illness Pt seen and examined in the ICU Discussed with RN Pt is laying in bed, calm and cooperative Vitals Vitals Vital Signs Date Time Temp Pulse Resp B/P (MAP) Pulse Ox O2 Delivery O2 Flow Rate FiO2 01/24/18 10:32 21 Room Air 01/24/18 10:00 94 151/90 (110) 99 01/24/18 08:00 98.9 98.9 Physical Exam General: Alert, mild distress Heart: Regular rate, Normal S1, Normal S2, No murmurs Lungs: Clear Abdomen: Normal bowel sounds, Soft, No tenderness Extremities: No clubbing, No cyanosis, Normal pulses, Other (left hand swelling and tenderness) Skin: No rashes, Other (abrasion to left lateral 5th finger) Labs LABS Laboratory Tests Test 01/23/18 12:53 01/23/18 18:10 01/23/18 20:44 01/23/18 21:00 Glucose (Fingerstick) 247 mg/dL (70-99) 241 mg/dL (70-99) 224 mg/dL (70-99) Sodium Level 147 mmol/L (136-145) Test 01/23/18 23:59 01/24/18 06:41 01/24/18 07:20 01/24/18 09:40 Glucose (Fingerstick) 210 mg/dL (70-99) 215 mg/dL (70-99) 184 mg/dL (70-99) White Blood Count 18.2 x10^3/uL (4.0-11.0) Red Blood Count 3.65 x10^6/uL (4.30-5.70) Hemoglobin 11.7 g/dL (13.0-17.5) Hematocrit 35.3 % (39.0-53.0) Mean Corpuscular Volume 97 fL (79-100) Mean Corpuscular Hemoglobin 32 pg (25-35) Mean Corpuscular Hemoglobin Concent 33 g/dL (31-37) Red Cell Distribution Width 14.1 % (11.5-14.5) Platelet Count 532 x10^3/uL (140-400) Neutrophils (%) (Auto) 80 % (31-73) Lymphocytes (%) (Auto) 12 % (24-48) Monocytes (%) (Auto) 5 % (0-9) Eosinophils (%) (Auto) 3 % (0-3) Basophils (%) (Auto) 1 % (0-3) Neutrophils # (Auto) 14.4 x10^3uL (1.8-7.7) Lymphocytes # (Auto) 2.1 x10^3/uL (1.0-4.8) Monocytes # (Auto) 0.9 x10^3/uL (0.0-1.1) Eosinophils # (Auto) 0.5 x10^3/uL (0.0-0.7) Basophils # (Auto) 0.2 x10^3/uL (0.0-0.2) Sodium Level 143 mmol/L (136-145) Potassium Level 3.4 mmol/L (3.5-5.1) Chloride Level 110 mmol/L (98-107) Carbon Dioxide Level 19 mmol/L (21-32) Anion Gap 14 (6-14) Blood Urea Nitrogen 48 mg/dL (8-26) Creatinine 1.8 mg/dL (0.7-1.3) Estimated GFR (Cockcroft-Gault) 41.4 Glucose Level 216 mg/dL (70-99) Calcium Level 9.4 mg/dL (8.5-10.1) Phosphorus Level 4.7 mg/dL (2.6-4.7) Magnesium Level 2.0 mg/dL (1.8-2.4) Triglycerides Level 256 mg/dL (0-150) Review of Systems Review of Systems Pt c/o left hand swelling and pain. Pt denies any fevers, chills, VENCES, CP, SOA, or abdominal pain. Assessment and Plan Assessmemt and Plan Problems Medical Problems: (1) Diabetic keto-acidosis Status: Acute (2) Hyperglycemia due to type 2 diabetes mellitus Status: Acute (3) Metabolic acidemia Status: Acute (4) Metabolic encephalopathy Status: Acute Assessment: Acute respiratory failure ETOH intoxication versus dependence, not protecting airway hence intubated at the emergency room LLL pneumonia Sepsis likely secondary to LLL pneumonia Severe agitation, could be secondary to alcohol withdrawal versus sepsis versus others Pancreatitis - hyperglycemia with hypertriglyceridemia Elevated BNP and troponin elevation Obesity BMI 39 - poss obstructive sleep apnea-hypopnea syndrome Left hand pain and swelling Leukocytosis H/o alcohol abuse H/o anxiety H/o GERD H/o hypertension Plan: ICU monitoring Labs Home meds IV abx Cook cath Contact precautions for c diff Appreciate subspecialist input Lortab 5mg Q4hrs prn for pain Left hand XR PT/OT DVT ppx Comment Review of Relevant I have reviewed the following items franklyn (where applicable) has been applied. Labs Laboratory Tests Test 01/22/18 12:57 01/22/18 15:05 01/22/18 17:12 01/22/18 19:34 Glucose (Fingerstick) 144 mg/dL (70-99) 138 mg/dL (70-99) 159 mg/dL (70-99) 141 mg/dL (70-99) Test 01/22/18 21:43 01/22/18 23:06 01/23/18 00:10 01/23/18 02:02 Glucose (Fingerstick) 166 mg/dL (70-99) 123 mg/dL (70-99) 115 mg/dL (70-99) 190 mg/dL (70-99) Test 01/23/18 05:54 01/23/18 05:55 01/23/18 08:39 01/23/18 10:00 Glucose (Fingerstick) 206 mg/dL (70-99) 211 mg/dL (70-99) White Blood Count 17.2 x10^3/uL (4.0-11.0) Red Blood Count 3.80 x10^6/uL (4.30-5.70) Hemoglobin 12.1 g/dL (13.0-17.5) Hematocrit 37.1 % (39.0-53.0) Mean Corpuscular Volume 98 fL (79-100) Mean Corpuscular Hemoglobin 32 pg (25-35) Mean Corpuscular Hemoglobin Concent 33 g/dL (31-37) Red Cell Distribution Width 14.4 % (11.5-14.5) Platelet Count 520 x10^3/uL (140-400) Neutrophils (%) (Auto) 79 % (31-73) Lymphocytes (%) (Auto) 13 % (24-48) Monocytes (%) (Auto) 5 % (0-9) Eosinophils (%) (Auto) 2 % (0-3) Basophils (%) (Auto) 1 % (0-3) Neutrophils # (Auto) 13.7 x10^3uL (1.8-7.7) Lymphocytes # (Auto) 2.3 x10^3/uL (1.0-4.8) Monocytes # (Auto) 0.9 x10^3/uL (0.0-1.1) Eosinophils # (Auto) 0.3 x10^3/uL (0.0-0.7) Basophils # (Auto) 0.1 x10^3/uL (0.0-0.2) Segmented Neutrophils % 78 % (35-66) Band Neutrophils % 4 % (0-9) Lymphocytes % 11 % (24-48) Monocytes % 3 % (0-10) Eosinophils % 3 % (0-5) Myelocytes % 1 % (0-0) Toxic Granulation Slight Platelet Estimate Increased (ADEQUATE) Sodium Level 153 mmol/L (136-145) 154 mmol/L (136-145) Potassium Level 3.4 mmol/L (3.5-5.1) Chloride Level 116 mmol/L (98-107) Carbon Dioxide Level 20 mmol/L (21-32) Anion Gap 17 (6-14) Blood Urea Nitrogen 50 mg/dL (8-26) Creatinine 2.1 mg/dL (0.7-1.3) Estimated GFR (Cockcroft-Gault) 34.6 Glucose Level 237 mg/dL (70-99) Calcium Level 10.1 mg/dL (8.5-10.1) Phosphorus Level 3.5 mg/dL (2.6-4.7) Magnesium Level 2.3 mg/dL (1.8-2.4) Test 01/23/18 12:53 01/23/18 18:10 01/23/18 20:44 01/23/18 21:00 Glucose (Fingerstick) 247 mg/dL (70-99) 241 mg/dL (70-99) 224 mg/dL (70-99) Sodium Level 147 mmol/L (136-145) Test 01/23/18 23:59 01/24/18 06:41 01/24/18 07:20 01/24/18 09:40 Glucose (Fingerstick) 210 mg/dL (70-99) 215 mg/dL (70-99) 184 mg/dL (70-99) White Blood Count 18.2 x10^3/uL (4.0-11.0) Red Blood Count 3.65 x10^6/uL (4.30-5.70) Hemoglobin 11.7 g/dL (13.0-17.5) Hematocrit 35.3 % (39.0-53.0) Mean Corpuscular Volume 97 fL (79-100) Mean Corpuscular Hemoglobin 32 pg (25-35) Mean Corpuscular Hemoglobin Concent 33 g/dL (31-37) Red Cell Distribution Width 14.1 % (11.5-14.5) Platelet Count 532 x10^3/uL (140-400) Neutrophils (%) (Auto) 80 % (31-73) Lymphocytes (%) (Auto) 12 % (24-48) Monocytes (%) (Auto) 5 % (0-9) Eosinophils (%) (Auto) 3 % (0-3) Basophils (%) (Auto) 1 % (0-3) Neutrophils # (Auto) 14.4 x10^3uL (1.8-7.7) Lymphocytes # (Auto) 2.1 x10^3/uL (1.0-4.8) Monocytes # (Auto) 0.9 x10^3/uL (0.0-1.1) Eosinophils # (Auto) 0.5 x10^3/uL (0.0-0.7) Basophils # (Auto) 0.2 x10^3/uL (0.0-0.2) Sodium Level 143 mmol/L (136-145) Potassium Level 3.4 mmol/L (3.5-5.1) Chloride Level 110 mmol/L (98-107) Carbon Dioxide Level 19 mmol/L (21-32) Anion Gap 14 (6-14) Blood Urea Nitrogen 48 mg/dL (8-26) Creatinine 1.8 mg/dL (0.7-1.3) Estimated GFR (Cockcroft-Gault) 41.4 Glucose Level 216 mg/dL (70-99) Calcium Level 9.4 mg/dL (8.5-10.1) Phosphorus Level 4.7 mg/dL (2.6-4.7) Magnesium Level 2.0 mg/dL (1.8-2.4) Triglycerides Level 256 mg/dL (0-150) Laboratory Tests Test 01/23/18 12:53 01/23/18 18:10 01/23/18 20:44 01/23/18 21:00 Glucose (Fingerstick) 247 mg/dL (70-99) 241 mg/dL (70-99) 224 mg/dL (70-99) Sodium Level 147 mmol/L (136-145) Test 01/23/18 23:59 01/24/18 06:41 01/24/18 07:20 01/24/18 09:40 Glucose (Fingerstick) 210 mg/dL (70-99) 215 mg/dL (70-99) 184 mg/dL (70-99) White Blood Count 18.2 x10^3/uL (4.0-11.0) Red Blood Count 3.65 x10^6/uL (4.30-5.70) Hemoglobin 11.7 g/dL (13.0-17.5) Hematocrit 35.3 % (39.0-53.0) Mean Corpuscular Volume 97 fL (79-100) Mean Corpuscular Hemoglobin 32 pg (25-35) Mean Corpuscular Hemoglobin Concent 33 g/dL (31-37) Red Cell Distribution Width 14.1 % (11.5-14.5) Platelet Count 532 x10^3/uL (140-400) Neutrophils (%) (Auto) 80 % (31-73) Lymphocytes (%) (Auto) 12 % (24-48) Monocytes (%) (Auto) 5 % (0-9) Eosinophils (%) (Auto) 3 % (0-3) Basophils (%) (Auto) 1 % (0-3) Neutrophils # (Auto) 14.4 x10^3uL (1.8-7.7) Lymphocytes # (Auto) 2.1 x10^3/uL (1.0-4.8) Monocytes # (Auto) 0.9 x10^3/uL (0.0-1.1) Eosinophils # (Auto) 0.5 x10^3/uL (0.0-0.7) Basophils # (Auto) 0.2 x10^3/uL (0.0-0.2) Sodium Level 143 mmol/L (136-145) Potassium Level 3.4 mmol/L (3.5-5.1) Chloride Level 110 mmol/L (98-107) Carbon Dioxide Level 19 mmol/L (21-32) Anion Gap 14 (6-14) Blood Urea Nitrogen 48 mg/dL (8-26) Creatinine 1.8 mg/dL (0.7-1.3) Estimated GFR (Cockcroft-Gault) 41.4 Glucose Level 216 mg/dL (70-99) Calcium Level 9.4 mg/dL (8.5-10.1) Phosphorus Level 4.7 mg/dL (2.6-4.7) Magnesium Level 2.0 mg/dL (1.8-2.4) Triglycerides Level 256 mg/dL (0-150) Microbiology 01/18/18 Blood Culture - Final, Complete NO GROWTH AFTER 5 DAYS 01/13/18 Throat Culture - Final, Complete 01/13/18 - Final, Complete Medications Current Medications Lorazepam (Ativan) 1 mg 1X ONCE IV Last administered on 01/11/18at 12:25; Start 01/11/18 at 12:30; Stop 01/11/18 at 12:31; Status DC Lorazepam (Ativan) 2 mg 1X ONCE IV Last administered on 01/11/18at 13:03; Start 01/11/18 at 12:45; Stop 01/11/18 at 12:46; Status DC Dextrose/Sodium Chloride 1,000 ml @ 0 mls/hr 1X ONCE IV ; Start 01/11/18 at 13:00; Stop 01/11/18 at 13:16; Status DC Sodium Chloride 1,000 ml @ 1,000 mls/hr 1X ONCE IV Last administered on 01/11at 13:41; Start 01/11/18 at 13:30; Stop 01/11/18 at 14:29; Status DC Sodium Chloride 1,000 ml @ 1,000 mls/hr 1X ONCE IV Last administered on 01/11at 13:42; Start 01/11/18 at 13:30; Stop 01/11/18 at 14:29; Status DC Lorazepam (Ativan) 1 mg 1X ONCE IV Last administered on 01/11/18at 15:08; Start 01/11/18 at 13:30; Stop 01/11/18 at 13:31; Status DC Lorazepam (Ativan) 1 mg 1X ONCE IV Last administered on 01/11/18at 13:43; Start 01/11/18 at 13:30; Stop 01/11/18 at 13:33; Status DC Aspirin (Children'S Aspirin) 324 mg 1X ONCE PO Last administered on at 14:02; Start 01/11/18 at 13:45; Stop 01/11/18 at 13:46; Status DC Haloperidol Lactate (Haldol Inj) 5 mg PRN Q6HRS PRN IVP SEVERE AGITATION Last administered on 01/23/18at 19:29; Start 01/11/18 at 16:15 Lorazepam (Ativan) 4 mg PRN Q4HRS PRN IV ANXIETY / AGITATION Last administered on 01/23/18at 00:35; Start 01/11/18 at 16:15 Multivitamins 10 ml/Thiamine HCl 100 mg/Folic Acid 1 mg/Sodium Chloride 1,011.2 ml @ 125 mls/ hr DAILY IV Last administered on 01/14/18at 08:19; Start at 17:00; Stop 01/14/18 at 21:59; Status DC Dexmedetomidine HCl 200 mcg/ Sodium Chloride 50 ml @ 0 mls/hr CONT PRN IV PER PROTOCOL Last administered on 01/11/18at 17:00; Start 01/11/18 at 16:45; Stop 01/11/18 at 18:38; Status DC Sodium Chloride 500 ml @ 500 mls/hr 1X PRN PRN IV SEE COMMENTS; Start at 16:45 Atropine Sulfate (ATROPINE 0.5mg SYRINGE) 0.5 mg PRN Q5MIN PRN IV SEE COMMENTS ; Start 01/11/18 at 16:45 Lorazepam (Ativan) 4 mg PRN Q1HR PRN PO For CIWA 8-14; Start 01/11/18 at 18:15 Lorazepam (Ativan) 8 mg PRN Q1HR PRN PO For CIWA 15 or greater; Start at 18:15 Lorazepam (Ativan) 2 mg PRN Q1HR PRN IV For CIWA 8-14 Last administered on at 20:52; Start 01/11/18 at 18:15 Lorazepam (Ativan) 4 mg PRN Q1HR PRN IV For CIWA 15 or greater Last administered on 01/23/18at 17:23; Start 01/11/18 at 18:15 Diphenhydramine HCl (Benadryl) 25 mg PRN Q15MIN PRN IVP EPS symptoms 2'Haldol admin; Start 01/11/18 at 18:15 Olanzapine (ZyPREXA IM) 10 mg 1X ONCE IM Last administered on 01/11/18at 18:42 ; Start 01/11/18 at 18:45; Stop 01/11/18 at 18:46; Status DC Dexmedetomidine HCl 200 mcg/ Sodium Chloride 50 ml @ 7 mls/hr CONT PRN IV PER PROTOCOL; Start 01/11/18 at 18:38; Stop 01/11/18 at 21:19; Status DC Propofol 100 ml @ As Directed STK-MED ONCE IV ; Start 01/11/18 at 18:43; Stop 01/11/18 at 18:44; Status DC Succinylcholine Chloride (Anectine) 200 mg STK-MED ONCE .ROUTE ; Start at 18:44; Stop 01/11/18 at 18:45; Status DC Fentanyl Citrate 30 ml @ 2.5 mls/hr CONT PRN IV PER PROTOCOL Last administered on 01/22/18at 04:09; Start 01/11/18 at 19:00 Propofol 100 ml @ 4.2 mls/hr CONT PRN IV PER PROTOCOL; Start 01/11/18 at 18: 45; Status Cancel Fentanyl Citrate (Fentanyl 2ml Vial) 25 mcg PRN Q1HR PRN IV SEE COMMENTS.; Start 01/11/18 at 18:45; Stop 01/21/18 at 08:42; Status DC Fentanyl Citrate (Fentanyl 2ml Vial) 50 mcg PRN Q1HR PRN IV SEE COMMENTS. Last administered on 01/11/18at 20:21; Start 01/11/18 at 18:45; Stop 01/21/18 at 08 :42; Status DC Morphine Sulfate (Morphine Sulfate) 2 mg PRN Q1HR PRN IV SEE COMMENTS. Last administered on 01/23/18at 16:25; Start 01/11/18 at 18:45 Morphine Sulfate (Morphine Sulfate) 4 mg PRN Q1HR PRN IV SEE COMMENTS. Last administered on 01/24/18at 10:01; Start 01/11/18 at 18:45 Hydromorphone HCl (Dilaudid) 0.2 mg PRN Q1HR PRN IV SEE COMMENTS.; Start 01/11 at 18:45; Stop 01/21/18 at 14:40; Status DC Hydromorphone HCl (Dilaudid) 0.4 mg PRN Q1HR PRN IV SEE COMMENTS.; Start 01/11 at 18:45; Stop 01/21/18 at 14:41; Status DC Morphine Sulfate (Morphine Sulfate) 2 mg PRN Q1HR PRN IV ; Start 01/11/18 at 18:45; Status UNV Morphine Sulfate (Morphine Sulfate) 4 mg PRN Q1HR PRN IV ; Start 01/11/18 at 18:45; Status UNV Midazolam HCl 100 ml @ 1 mls/hr CONT PRN IV PER PROTOCOL Last administered on 01/16/18at 04:52; Start 01/11/18 at 18:45; Stop 01/16/18 at 09:52; Status DC Epinephrine HCl (EPINEPHrine SYRINGE) 1 mg STK-MED ONCE .ROUTE ; Start at 18:56; Stop 01/11/18 at 18:57; Status DC Propofol 100 ml @ 2.103 mls/ hr CONT PRN IV SEE I/O RECORD Last administered on 01/11/18at 20:23; Start 01/11/18 at 19:00 Vecuronium [place] (Norcuron Bolus) 10 mg STK-MED ONCE IV ; Start 01/11/18 at 19:02; Stop 01/11/18 at 19:03; Status DC Vancomycin HCl (Vanco Per Pharmacy) 1 each PRN DAILY PRN MC SEE COMMENTS Last administered on 01/12/18at 11:47; Start 01/11/18 at 20:15; Stop 01/12/18 at 13 :14; Status DC Piperacillin Sod/ Tazobactam Sod (Zosyn Per Pharmacy) 1 each PRN DAILY PRN MC SEE COMMENTS; Start 01/11/18 at 20:15; Stop 01/13/18 at 08:00; Status DC Piperacillin Sod/ Tazobactam Sod 4.5 gm/Sodium Chloride 100 ml @ 200 mls/hr Q6HRS IV Last administered on 01/13/18at 06:48; Start 01/12/18 at 00:00; Stop 01/13/18 at 07:57; Status DC Vancomycin HCl 2 gm/Sodium Chloride 500 ml @ 250 mls/hr 1X ONCE IV Last administered on 01/11/18at 21:00; Start 01/11/18 at 21:00; Stop 01/11/18 at 22 :59; Status DC Insulin Human Lispro (HumaLOG) 0-7 UNITS Q6HRS SQ Last administered on at 05:56; Start 01/12/18 at 00:00; Stop 01/23/18 at 09:00; Status DC Dextrose (Dextrose 50%-Water Syringe) 12.5 gm PRN Q15MIN PRN IV SEE COMMENTS; Start 01/11/18 at 21:00 Sodium Chloride 1,000 ml @ 100 mls/hr Q10H IV Last administered on 01/16/18at 03:59; Start 01/11/18 at 21:00; Stop 01/16/18 at 09:47; Status DC Dexmedetomidine HCl 200 mcg/ Sodium Chloride 50 ml @ 0 mls/hr CONT PRN IV PER PROTOCOL Last administered on 01/22/18at 11:48; Start 01/11/18 at 21:00 Acetaminophen (Tylenol) 650 mg PRN Q6HRS PRN PEG MILD PAIN / TEMP Last administered on 01/21/18at 14:39; Start 01/11/18 at 21:30 Magnesium Sulfate 50 ml @ 25 mls/hr 1X ONCE IV Last administered on at 01:27; Start 01/12/18 at 01:00; Stop 01/12/18 at 02:59; Status DC Sodium Chloride 1,000 ml @ 1,000 mls/hr 1X ONCE IV Last administered on 01/12at 01:00; Start 01/12/18 at 04:30; Stop 01/12/18 at 05:29; Status DC Vancomycin HCl 1.5 gm/Sodium Chloride 500 ml @ 250 mls/hr Q12H IV Last administered on 01/12/18at 08:44; Start 01/12/18 at 09:00; Stop 01/12/18 at 13 :14; Status DC Vancomycin HCl (Vancomycin Trough Level) 1 each 1X ONCE MC ; Start 01/12/18 at 20:30; Stop 01/12/18 at 20:30; Status DC Sodium Chloride 500 ml @ 500 mls/hr 1X ONCE IV Last administered on at 07:26; Start 01/12/18 at 07:00; Stop 01/12/18 at 07:59; Status DC Famotidine (Pepcid Vial) 20 mg BID IVP Last administered on 01/13/18at 20:49; Start 01/12/18 at 09:00; Stop 01/14/18 at 09:40; Status DC Albuterol/ Ipratropium (Duoneb) 3 ml RTQID NEB Last administered on 01/24/18at 08:05; Start 01/12/18 at 08:00 Heparin Sodium (Porcine) (Heparin Sodium) 5,000 unit Q8HRS SQ Last administered on 01/24/18at 06:47; Start 01/12/18 at 14:00 Gemfibrozil (Lopid) 600 mg BIDBFRMEAL PO Last administered on 01/24/18at 09:25 ; Start 01/12/18 at 10:00 Linezolid/Dextrose 300 ml @ 300 mls/hr Q12HR IV Last administered on at 08:39; Start 01/12/18 at 21:00; Stop 01/15/18 at 12:06; Status DC Vecuronium [place] (Norcuron Bolus) 10 mg STK-MED ONCE IV ; Start 01/11/18 at 19:00; Stop 01/13/18 at 07:59; Status DC Succinylcholine Chloride (Anectine) 200 mg STK-MED ONCE .ROUTE ; Start at 19:00; Stop 01/13/18 at 07:59; Status DC Propofol (Diprivan) 1,000 mg STK-MED ONCE IV ; Start 01/11/18 at 19:00; Stop 01/13/18 at 07:59; Status DC Epinephrine HCl (EPINEPHrine SYRINGE) 1 mg STK-MED ONCE .ROUTE ; Start at 19:00; Stop 01/13/18 at 07:59; Status DC Piperacillin Sod/ Tazobactam Sod 2.25 gm/Sodium Chloride 50 ml @ 100 mls/hr Q8HRS IV Last administered on 01/16/18at 05:59; Start 01/13/18 at 14:00; Stop 01/16/18 at 07:31; Status DC Doxycycline Hyclate 100 mg/ Dextrose 100 ml @ 50 mls/hr Q12HR IV Last administered on 01/20/18at 21:30; Start 01/13/18 at 09:00; Stop 01/21/18 at 07 :51; Status DC Sodium Bicarbonate (Sodium Bicarb Adult 8.4% Syr) 100 meq 1X ONCE IV Last administered on 01/13/18at 09:12; Start 01/13/18 at 09:15; Stop 01/13/18 at 09 :16; Status DC Sodium Chloride 1,000 ml @ 1,000 mls/hr Q1H IV ; Start 01/13/18 at 12:30; Status Cancel Sodium Chloride 1,000 ml @ 1,000 mls/hr 1X ONCE IV Last administered on 01/13at 12:15; Start 01/13/18 at 12:15; Stop 01/13/18 at 13:14; Status DC Vecuronium [place] (Norcuron Bolus) 6 mg PRN Q6HRS PRN IV VENT ASYNCHRONY Last administered on 01/15/18at 10:23; Start 01/13/18 at 12:30; Stop 01/15/18 at 14 :51; Status DC Info (Tpn Per Pharmacy) 1 each PRN DAILY PRN MC SEE COMMENTS Last administered on 01/23/18at 13:59; Start 01/14/18 at 09:45 Famotidine (Pepcid Vial) 20 mg DAILY IVP Last administered on 01/21/18at 08:46 ; Start 01/15/18 at 09:00; Stop 01/21/18 at 13:58; Status DC Sodium Bicarbonate (Sodium Bicarb Adult 8.4% Syr) 50 meq STK-MED ONCE .ROUTE ; Start 01/14/18 at 11:12; Stop 01/14/18 at 11:13; Status DC Labetalol HCl (Normodyne Iv Push) 10 mg PRN Q4HRS PRN IVP HYPERTENSION, SEE COMMENTS Last administered on 01/17/18at 10:39; Start 01/14/18 at 11:30; Stop 01/21/18 at 01:57; Status DC Sodium Bicarbonate (Sodium Bicarb Adult 8.4% Syr) 100 meq 1X ONCE IV Last administered on 01/14/18at 11:34; Start 01/14/18 at 11:30; Stop 01/14/18 at 11 :31; Status DC Sodium Chloride 45 meq/Sodium Acetate 45 meq/ Potassium Chloride 30 meq/ Potassium Phosphate 6.8 mmol/Magnesium Sulfate 10 meq/ Calcium Gluconate 10 meq / Multivitamins 10 ml/Chromium/ Copper/Manganese/ Seleni/Zn 1 ml/ Thiamine HCl 100 mg/Folic Acid 1 mg/Total Julieta... 1,512 ml @ 63 mls/hr TPN CONT IV Last administered on 01/14/18at 21:37; Start 01/14/18 at 22:00; Stop 01/15/18 at 21:59; Status DC Labetalol HCl (Normodyne Iv Push) 20 mg PRN Q2HR PRN IVP HYPERTENSION, SEE COMMENTS Last administered on 01/22/18at 19:52; Start 01/14/18 at 15:30 Multivitamins 10 ml/Thiamine HCl 100 mg/Folic Acid 1 mg/Sodium Chloride 1,011.2 ml @ 1,000.088 mls/hr 1X ONCE IV ; Start 01/15/18 at 08:15; Stop 01/15/18 at 09:15; Status UNV Sodium Chloride 1,000 ml @ 1,000 mls/hr Q1H PRN IV hypotension; Start at 09:06; Stop 01/15/18 at 09:32; Status DC Albumin Human 200 ml @ 200 mls/hr 1X ONCE IV ; Start 01/15/18 at 09:15; Stop 01/15/18 at 09:32; Status DC Acetaminophen (Tylenol) 500 mg 1X PRN PRN PO MILD PAIN / TEMP; Start 01/15/18 at 09:15; Stop 01/15/18 at 09:32; Status DC Diphenhydramine HCl (Benadryl) 25 mg 1X PRN PRN IV ITCHING; Start 01/15/18 at 09:15; Stop 01/15/18 at 09:32; Status DC Pharmacy Consult (C.diff Med Screen By Rx) 1 each PRN 1X PRN MC SEE COMMENTS; Start 01/15/18 at 09:30; Status Cancel Sodium Chloride 1,000 ml @ 400 mls/hr Q2H30M PRN IV PATENCY; Start 01/15/18 at 09:06; Stop 01/15/18 at 09:32; Status DC Info (PHARMACY MONITORING -- do not chart) 1 each PRN DAILY PRN MC SEE COMMENTS ; Start 01/15/18 at 09:15; Stop 01/21/18 at 14:04; Status DC Sodium Acetate 75 meq/Potassium Chloride 30 meq/ Potassium Phosphate 6.8 mmol/ Magnesium Sulfate 13 meq/ Calcium Gluconate 10 meq/ Multivitamins 10 ml/Chromium / Copper/Manganese/ Seleni/Zn 1 ml/ Thiamine HCl 100 mg/Folic Acid 1 mg/Total Parenteral Nutrition/Amino Acids/Dextro... 1,492 ml @ 62.167 mls/ hr TPN CONT IV ; Start 01/15/18 at 22:00; Stop 01/15/18 at 22:00; Status DC Sodium Acetate 75 meq/Potassium Chloride 30 meq/ Potassium Phosphate 6.8 mmol/ Magnesium Sulfate 13 meq/ Calcium Gluconate 10 meq/ Multivitamins 10 ml/Chromium / Copper/Manganese/ Seleni/Zn 1 ml/ Thiamine HCl 100 mg/Folic Acid 1 mg/Total Parenteral Nutrition/Amino Acids/Dextro... 1,512 ml @ 63 mls/hr TPN CONT IV Last administered on 01/15/18at 22:07; Start 01/15/18 at 22:00; Stop 01/16/18 at 21:59; Status DC Vecuronium [place] (Norcuron Bolus) 6 mg PRN Q4HRS PRN IV VENT ASYNCHRONY Last administered on 01/21/18at 02:08; Start 01/15/18 at 15:00 Meropenem 500 mg/ Sodium Chloride 50 ml @ 100 mls/hr Q12HR IV Last administered on 01/21/18at 08:46; Start 01/16/18 at 08:00; Stop 01/21/18 at 14 :03; Status DC Metronidazole 100 ml @ 100 mls/hr Q8HRS IV Last administered on 01/21/18at 14: 42; Start 01/16/18 at 08:00; Stop 01/21/18 at 16:23; Status DC Chlorhexidine Gluconate (Peridex) 15 ml BID MM ; Start 01/16/18 at 21:00; Status Cancel Dextrose/Sodium Chloride 1,000 ml @ 50 mls/hr Q20H IV ; Start 01/16/18 at 10: 00; Stop 01/17/18 at 13:11; Status DC Lorazepam 100 mg/ Sodium Chloride 100 ml @ 2 mls/hr CONT PRN IV SEE PROTOCOL Last administered on 01/21/18at 02:22; Start 01/16/18 at 09:45 Potassium Acetate 30 meq/Potassium Phosphate 3.4 mmol/Magnesium Sulfate 15 meq/ Calcium Gluconate 10 meq/ Multivitamins 10 ml/Chromium/ Copper/Manganese/ Seleni /Zn 1 ml/ Thiamine HCl 100 mg/Folic Acid 1 mg/Total Parenteral Nutrition/Amino Acids/Dextrose 1,512 ml @ 63 mls/hr TPN CONT IV Last administered on at 21:52; Start 01/16/18 at 22:00; Stop 01/17/18 at 21:59; Status DC Hydralazine HCl (Apresoline Inj) 20 mg PRN TID PRN IVP SBP>160 2ND CHOICE Last administered on 01/22/18at 16:31; Start 01/16/18 at 15:30 Nicardipine HCl 50 mg/Sodium Chloride 270 ml @ 27 mls/hr CONT PRN IV SEE I/O RECORD Last administered on 01/24/18at 02:33; Start 01/16/18 at 16:30 Dextrose 500 ml @ 500 mls/hr 1X ONCE IV ; Start 01/17/18 at 07:30; Stop at 10:53; Status DC Insulin Glargine (Lantus) 10 units QHS SQ ; Start 01/17/18 at 21:00; Status Cancel Insulin Glargine (Lantus) 10 units DAILY10 SQ Last administered on 01/18/18at 11:12; Start 01/17/18 at 10:00; Stop 01/18/18 at 16:41; Status DC Dextrose 1,000 ml @ 75 mls/hr [id number] IV Last administered on 01/20/18at 04:25 ; Start 01/17/18 at 11:00; Stop 01/20/18 at 15:40; Status DC Potassium Acetate 30 meq/Potassium Phosphate 3.4 mmol/Magnesium Sulfate 18 meq/ Calcium Gluconate 10 meq/ Multivitamins 10 ml/Chromium/ Copper/Manganese/ Seleni /Zn 1 ml/ Thiamine HCl 100 mg/Folic Acid 1 mg/Total Parenteral Nutrition/Amino Acids/Dextrose 1,728 ml @ 72 mls/hr TPN CONT IV Last administered on at 21:25; Start 01/17/18 at 22:00; Stop 01/18/18 at 21:59; Status DC Vecuronium [place] 100 mg/ Dextrose 100 ml @ 7.89 mls/hr CONT PRN IV SEE I/O RECORD; Start 01/17/18 at 19:45; Status Cancel Vecuronium [place] 100 mg/ Miscellaneous 100 ml @ 7.89 mls/hr CONT PRN IV SEE I/O RECORD Last administered on 01/18/18at 22:55; Start 01/17/18 at 19:45 Insulin Human Lispro (HumaLOG) 10 units 1X ONCE SQ ; Start 01/18/18 at 06:30; Stop 01/18/18 at 06:31; Status DC Insulin Human Lispro (HumaLOG) 8 units Q4HRS SQ Last administered on at 12:28; Start 01/18/18 at 08:30; Stop 01/18/18 at 16:32; Status DC Magnesium Sulfate 50 ml @ 25 mls/hr PRN DAILY PRN IV for mag < 1.7 on am labs Last administered on 01/18/18at 11:44; Start 01/18/18 at 11:00 Desmopressin Acetate (Ddavp) 4 mcg BID SQ Last administered on 01/18/18at 21:38 ; Start 01/18/18 at 11:30; Stop 01/18/18 at 21:01; Status DC Magnesium Sulfate/ Dextrose 100 ml @ 100 mls/hr 1X ONCE IV Last administered on 01/18/18at 11:49; Start 01/18/18 at 11:30; Stop 01/18/18 at 12:29; Status DC Potassium Acetate 30 meq/Magnesium Sulfate 25 meq/ Calcium Gluconate 10 meq/ Multivitamins 10 ml/Chromium/ Copper/Manganese/ Seleni/Zn 1 ml/ Thiamine HCl 100 mg/Folic Acid 1 mg/Total Parenteral Nutrition/Amino Acids/Dextrose/ Fat Emulsion Intravenous 3,000 ml @ 125 mls/hr TPN CONT IV Last administered on 01/18/18at 21:50; Start 01/18/18 at 22:00; Stop 01/19/18 at 21:59; Status DC Daptomycin 780 mg/ Sodium Chloride 50 ml @ 100 mls/hr Q48H IV Last administered on 01/20/18at 14:25; Start 01/18/18 at 15:30; Stop 01/21/18 at 07 :51; Status DC Insulin Human Regular 150 unit/ Sodium Chloride 151.5 ml @ 0 mls/hr CONT PRN IV SEE I/O RECORD Last administered on 01/21/18at 15:43; Start 01/18/18 at 16: 30 Dextrose (Dextrose 50%-Water Syringe) 12.5 gm PRN Q15MIN PRN IV LOW BLOOD SUGAR ; Start 01/18/18 at 16:30; Status UNV Norepinephrine Bitartrate 250 ml @ 1.875 mls/ hr CONT PRN IV SEE I/O RECORD; Start 01/18/18 at 16:30 Desmopressin Acetate (Ddavp) 6 mcg BID SQ Last administered on 01/20/18at 21:00 ; Start 01/19/18 at 12:30; Stop 01/21/18 at 10:41; Status DC Info ([facility]cu Electrolyte Protocol) 1 ea CONT PRN PRN MC PER PROTOCOL; Start 01/19 at 12:30 Potassium Acetate 60 meq/Magnesium Sulfate 25 meq/ Calcium Gluconate 10 meq/ Multivitamins 10 ml/Chromium/ Copper/Manganese/ Seleni/Zn 1 ml/ Thiamine HCl 100 mg/Folic Acid 1 mg/Total Parenteral Nutrition/Amino Acids/Dextrose/ Fat Emulsion Intravenous 3,000 ml @ 125 mls/hr TPN CONT IV Last administered on 01/19/18at 21:58; Start 01/19/18 at 22:00; Stop 01/20/18 at 21:59; Status DC Potassium Chloride/Water 50 ml @ 50 mls/hr Q1H IV Last administered on at 19:24; Start 01/19/18 at 18:00; Stop 01/19/18 at 19:59; Status DC Potassium Chloride/Water 50 ml @ 50 mls/hr Q1H IV ; Start 01/19/18 at 17:15; Stop 01/19/18 at 21:14; Status UNV Potassium Chloride/Water 50 ml @ 50 mls/hr Q1HR IV ; Start 01/19/18 at 18:00; Stop 01/19/18 at 23:59; Status UNV Lidocaine/Sodium Bicarbonate (Buffered Lidocaine 1%) 6 ml 1X ONCE INJ ; Start 01/20/18 at 07:45; Stop 01/20/18 at 07:47; Status DC Potassium Acetate 60 meq/Magnesium Sulfate 25 meq/ Calcium Gluconate 10 meq/ Multivitamins 10 ml/Chromium/ Copper/Manganese/ Seleni/Zn 1 ml/ Thiamine HCl 100 mg/Folic Acid 1 mg/Total Parenteral Nutrition/Amino Acids/Dextrose 3,000 ml @ 125 mls/hr TPN CONT IV Last administered on 01/20/18at 21:54; Start at 22:00; Stop 01/21/18 at 21:59; Status DC Sodium Chloride 1,000 ml @ 75 mls/hr [id number] IV Last administered on at 08:46; Start 01/20/18 at 15:45; Stop 01/21/18 at 10:41; Status DC Dextrose 1,000 ml @ 75 mls/hr [id number] IV Last administered on 01/24/18at 06:52 ; Start 01/21/18 at 10:45 Desmopressin Acetate 6 mcg/ Sodium Chloride 51.5 ml @ 102 mls/hr 1X ONCE IV Last administered on 01/21/18at 11:00; Start 01/21/18 at 11:00; Stop 01/21/18 at 11:30; Status DC Potassium Acetate 60 meq/Magnesium Sulfate 25 meq/ Calcium Gluconate 10 meq/ Multivitamins 10 ml/Chromium/ Copper/Manganese/ Seleni/Zn 1 ml/ Thiamine HCl 100 mg/Folic Acid 1 mg/Total Parenteral Nutrition/Amino Acids/Dextrose/ Fat Emulsion Intravenous 3,000 ml @ 125 mls/hr TPN CONT IV ; Start 01/21/18 at 22 :00; Stop 01/21/18 at 22:00; Status DC Tramadol HCl (Ultram) 50 mg DAILY PRN PO PAIN Last administered on 01/23/18at 22:22; Start 01/21/18 at 12:00 Venlafaxine HCl (Effexor) 50 mg BID PO Last administered on 01/24/18 09:26; Start 01/21/18 at 14:00 Amlodipine Besylate (Norvasc) 10 mg DAILY PO Last administered on 01/24/18 09 :26; Start 01/21/18 at 14:00 Ibuprofen (Motrin) 400 mg PRN Q6HRS PRN PO INFLAMMATION; Start 01/21/18 at 13: 45 Losartan Potassium (Cozaar) 25 mg DAILY PO Last administered on 01/24/18 09: 22; Start 01/21/18 at 14:00 Neomycin/ Polymyxin/ Dexamethasone (Maxitrol) 1 drop QID OD Last administered on 01/24/18 09:27; Start 01/21/18 at 17:00 Pantoprazole Sodium (Protonix) 40 mg DAILYAC PO Last administered on 09:25; Start 01/22/18 at 07:30 Magnesium Oxide (Magnesium Oxide) 400 mg DAILY PO Last administered on 09:26; Start 01/22/18 at 09:00 Multivitamins (Thera M Plus) 1 tab DAILY PO Last administered on 01/24/18 09: 26; Start 01/22/18 at 09:00 Non-Formulary Medication (Nebivolol Hcl (Bystolic)) 20 mg DAILY PO ; Start at 09:00; Status UNV Metoprolol Tartrate (Lopressor) 50 mg BID PO Last administered on 01/24/18 09 :25; Start 01/21/18 at 14:00 Tizanidine HCl (Zanaflex) 4 mg TID PO Last administered on 01/24/18at 09:25; Start 01/21/18 at 14:00 Meropenem 500 mg/ Sodium Chloride 50 ml @ 100 mls/hr Q8HRS IV ; Start at 14:30; Stop 01/21/18 at 16:22; Status DC Vancomycin HCl (Vancomycin Oral Solution) 125 mg [id number] PO Last administered on 01/24/18 09:26; Start 01/21/18 at 17:00 Potassium Acetate 60 meq/Magnesium Sulfate 25 meq/ Calcium Gluconate 10 meq/ Multivitamins 10 ml/Chromium/ Copper/Manganese/ Seleni/Zn 1 ml/ Thiamine HCl 100 mg/Folic Acid 1 mg/Total Parenteral Nutrition/Amino Acids/Dextrose 3,000 ml @ 125 mls/hr TPN CONT IV Last administered on 01/21/18at 22:22; Start at 22:00; Stop 01/22/18 at 22:00; Status DC Potassium Acetate 60 meq/Magnesium Sulfate 15 meq/ Calcium Gluconate 10 meq/ Multivitamins 10 ml/Chromium/ Copper/Manganese/ Seleni/Zn 1 ml/ Thiamine HCl 100 mg/Folic Acid 1 mg/Total Parenteral Nutrition/Amino Acids/Dextrose 3,000 ml @ 125 mls/hr TPN CONT IV Last administered on 01/22/18at 22:23; Start at 22:00; Stop 01/23/18 at 21:59; Status DC Metronidazole 100 ml @ 100 mls/hr Q8HRS IV Last administered on 01/23/18at 15: 12; Start 01/22/18 at 22:00; Stop 01/23/18 at 22:06; Status DC Clonidine HCl (Catapres Tts-1) 1 patch WEEKLY TD Last administered on at 20:52; Start 01/22/18 at 21:00 Enalaprilat (Vasotec Inj) 1.25 mg Q6HRS IVP ; Start 01/22/18 at 21:00 Insulin Glargine (Lantus) 20 units BID SQ Last administered on 01/24/18at 09:42 ; Start 01/23/18 at 09:00 Insulin Human Lispro (HumaLOG) 0-9 UNITS Q6HRS SQ Last administered on at 06:44; Start 01/23/18 at 09:00 Desmopressin Acetate 6 mcg/ Sodium Chloride 51.5 ml @ 102 mls/hr BID IV Last administered on 01/24/18at 10:43; Start 01/23/18 at 11:00 Potassium Chloride/Water 50 ml @ 50 mls/hr 1X ONCE IV Last administered on at 11:57; Start 01/23/18 at 11:00; Stop 01/23/18 at 11:59; Status DC Potassium Acetate 60 meq/Magnesium Sulfate 15 meq/ Calcium Gluconate 10 meq/ Multivitamins 10 ml/Chromium/ Copper/Manganese/ Seleni/Zn 1 ml/ Thiamine HCl 100 mg/Folic Acid 1 mg/Total Parenteral Nutrition/Amino Acids/Dextrose 3,000 ml @ 125 mls/hr TPN CONT IV Last administered on 01/23/18at 22:14; Start at 22:00; Stop 01/24/18 at 21:59 Pantoprazole Sodium (Protonix) 40 mg 1X ONCE PO Last administered on at 19:29; Start 01/23/18 at 19:15; Stop 01/23/18 at 19:16; Status DC Active Scripts Active Reported [[facility] Fluidigmanicals] Maxitrol Eye Drops (Brandon/Polymyx B Sulf/Dexameth) 5 Ml Drops.susp 1 Drop OD QID Multivitamins (Multivitamin) 1 Each Tablet 1 Tab PO DAILY Magnesium (Magnesium Oxide) 400 Mg Capsule 1 Cap PO DAILY Calcium (Calcium Carbonate) 500 Mg Tab.chew 500 Mg PO Lansoprazole 30 Mg Capsule.dr 1 Cap PO DAILY Losartan Potassium 25 Mg Tablet 25 Mg PO DAILY Tizanidine Hcl 4 Mg Tablet 1 Tab PO TID Tramadol Hcl 50 Mg Tablet 50 Mg PO DAILY PRN Bystolic (Nebivolol Hcl) 20 Mg Tablet 20 Mg PO DAILY Cymbalta (Duloxetine Hcl) 20 Mg Capsule.dr 1 Cap PO DAILY Valacyclovir (Valacyclovir Hcl) 1,000 Mg Tablet 1 Tab PO DAILY Ibuprofen 400 Mg Tablet 400 Mg PO PRN Q6HRS PRN Bystolic (Nebivolol) 10 Mg Tablet 20 Mg PO DAILY Amlodipine Besylate 10 Mg Tablet 10 Mg PO DAILY Vitals/I & O Vital Sign - Last 24 Hours 01/23/18 01/23/18 01/23/18 01/23/18 11:55 12:00 12:00 13:00 Temp 98.5 98.5 Pulse 114 114 Resp 23 27 B/P (MAP) 147/82 (103) 160/98 (118) Pulse Ox 98 97 O2 Delivery Room Air Room Air Room Air Room Air 01/23/18 01/23/18 01/23/18 01/23/18 14:00 14:30 14:31 15:03 Pulse 116 117 117 Resp 26 B/P (MAP) 147/96 (113) 124/76 124/76 Pulse Ox 99 100 O2 Delivery Room Air Room Air 01/23/18 01/23/18 01/23/18 01/23/18 15:37 16:00 16:00 16:25 Temp 98.9 98.9 Pulse 112 113 Resp 29 22 26 B/P (MAP) 164/84 (110) 150/96 (114) Pulse Ox 100 99 O2 Delivery Room Air Room Air Room Air Room Air 01/23/18 01/23/18 01/23/18 01/23/18 17:00 17:04 18:00 19:00 Temp 98.7 98.7 Pulse 108 108 108 Resp 16 25 16 22 B/P (MAP) 139/83 (101) 135/87 (103) 178/110 (132) Pulse Ox 100 98 99 O2 Delivery Room Air Room Air Room Air Room Air 01/23/18 01/23/18 01/23/18 01/23/18 19:30 20:00 20:00 20:30 Pulse 104 107 Resp 27 B/P (MAP) 145/75 (98) 145/75 Pulse Ox 96 97 O2 Delivery Room Air Room Air Room Air 01/23/18 01/23/18 01/23/18 01/23/18 21:00 22:00 22:22 23:00 Pulse 102 98 90 Resp 25 20 22 22 B/P (MAP) 128/85 (99) 127/87 (100) 117/85 (96) Pulse Ox 99 99 100 99 O2 Delivery Room Air Room Air Room Air Room Air 01/23/18 01/23/18 01/24/18 01/24/18 23:22 23:59 00:00 00:35 Temp 98.6 98.6 Pulse 88 Resp 22 B/P (MAP) 168/100 (122) Pulse Ox 98 100 100 O2 Delivery Room Air Room Air Room Air Room Air 01/24/18 01/24/18 01/24/18 01/24/18 01:00 01:05 02:00 03:00 Pulse 88 92 96 Resp 18 22 20 B/P (MAP) 168/103 (124) 156/100 (118) 145/82 (103) Pulse Ox 99 98 99 99 O2 Delivery Room Air Room Air Room Air 01/24/18 01/24/18 01/24/18 01/24/18 04:00 04:00 05:00 06:00 Temp 98.6 98.6 Pulse 90 106 82 Resp 21 22 16 B/P (MAP) 147/86 (106) 146/97 (113) 153/77 (102) Pulse Ox 95 99 97 O2 Delivery Room Air Room Air Room Air Room Air 01/24/18 01/24/18 01/24/18 01/24/18 07:00 08:00 08:00 08:07 Temp 98.9 98.9 Pulse 102 90 Resp 23 21 B/P (MAP) 142/92 (109) 140/85 (103) Pulse Ox 99 98 98 O2 Delivery Room Air Room Air Room Air Room Air 01/24/18 01/24/18 01/24/18 01/24/18 09:00 09:22 09:25 09:26 Pulse 90 97 97 97 Resp 22 B/P (MAP) 140/91 (107) 140/91 140/91 140/91 Pulse Ox 95 O2 Delivery Room Air 01/24/18 01/24/18 01/24/18 10:00 10:01 10:32 Pulse 94 Resp 22 17 21 B/P (MAP) 151/90 (110) Pulse Ox 99 O2 Delivery Room Air Room Air Room Air Intake and Output 01/23/18 01/23/18 01/24/18 15:00 23:00 07:00 Intake Total 51.5 ml 4397.87 ml Output Total 1860 ml 2030 ml 1425 ml Balance -1808.5 ml 2367.87 ml -1425 ml DREA SORENSON III DO Jan 24, 2018 11:25
[2018-01-24] MEDS ORDERED: HYDROcodone/APAP 5/325MG 1 TAB TABLET PO PRN (11:30)
[2018-01-24 11:52] LABS: DIRECT BILIRUBIN 0.2 mg/dL (0.0-0.2); TOTAL BILIRUBIN 0.5 mg/dL (0.2-1.0); TOTAL PROTEIN 7.5 g/dL (6.4-8.2)
[2018-01-24] MEDS: TPN PER PHARMACY MC PRN (12:28)
--- NOTE | 2018-01-24 13:01 | PDOC ---
PULMONARY PROGRESS NOTES Subjective NO RESP COMPLAINTS Vitals Vital Signs Date Time Temp Pulse Resp B/P (MAP) Pulse Ox O2 Delivery O2 Flow Rate FiO2 01/24/18 12:40 26 Room Air 01/24/18 12:17 98 01/24/18 10:00 94 151/90 (110) 01/24/18 08:00 98.9 98.9 ROS: No Nausea, No Chest Pain, No Abdominal Pain, No Increase Cough General: Confused Lungs: Clear Cardiovascular: S1, S2 Abdomen: Soft Neuro Exam: Alert Extremities: Other (1+edema) Skin: Warm Labs Laboratory Tests Test 01/22/18 15:05 01/22/18 17:12 01/22/18 19:34 01/22/18 21:43 Glucose (Fingerstick) 138 mg/dL (70-99) 159 mg/dL (70-99) 141 mg/dL (70-99) 166 mg/dL (70-99) Test 01/22/18 23:06 01/23/18 00:10 01/23/18 02:02 01/23/18 05:54 Glucose (Fingerstick) 123 mg/dL (70-99) 115 mg/dL (70-99) 190 mg/dL (70-99) 206 mg/dL (70-99) Test 01/23/18 05:55 01/23/18 08:39 01/23/18 10:00 01/23/18 12:53 White Blood Count 17.2 x10^3/uL (4.0-11.0) Red Blood Count 3.80 x10^6/uL (4.30-5.70) Hemoglobin 12.1 g/dL (13.0-17.5) Hematocrit 37.1 % (39.0-53.0) Mean Corpuscular Volume 98 fL (79-100) Mean Corpuscular Hemoglobin 32 pg (25-35) Mean Corpuscular Hemoglobin Concent 33 g/dL (31-37) Red Cell Distribution Width 14.4 % (11.5-14.5) Platelet Count 520 x10^3/uL (140-400) Neutrophils (%) (Auto) 79 % (31-73) Lymphocytes (%) (Auto) 13 % (24-48) Monocytes (%) (Auto) 5 % (0-9) Eosinophils (%) (Auto) 2 % (0-3) Basophils (%) (Auto) 1 % (0-3) Neutrophils # (Auto) 13.7 x10^3uL (1.8-7.7) Lymphocytes # (Auto) 2.3 x10^3/uL (1.0-4.8) Monocytes # (Auto) 0.9 x10^3/uL (0.0-1.1) Eosinophils # (Auto) 0.3 x10^3/uL (0.0-0.7) Basophils # (Auto) 0.1 x10^3/uL (0.0-0.2) Segmented Neutrophils % 78 % (35-66) Band Neutrophils % 4 % (0-9) Lymphocytes % 11 % (24-48) Monocytes % 3 % (0-10) Eosinophils % 3 % (0-5) Myelocytes % 1 % (0-0) Toxic Granulation Slight Platelet Estimate Increased (ADEQUATE) Sodium Level 153 mmol/L (136-145) 154 mmol/L (136-145) Potassium Level 3.4 mmol/L (3.5-5.1) Chloride Level 116 mmol/L (98-107) Carbon Dioxide Level 20 mmol/L (21-32) Anion Gap 17 (6-14) Blood Urea Nitrogen 50 mg/dL (8-26) Creatinine 2.1 mg/dL (0.7-1.3) Estimated GFR (Cockcroft-Gault) 34.6 Glucose Level 237 mg/dL (70-99) Calcium Level 10.1 mg/dL (8.5-10.1) Phosphorus Level 3.5 mg/dL (2.6-4.7) Magnesium Level 2.3 mg/dL (1.8-2.4) Glucose (Fingerstick) 211 mg/dL (70-99) 247 mg/dL (70-99) Test 01/23/18 18:10 01/23/18 20:44 01/23/18 21:00 01/23/18 23:59 Glucose (Fingerstick) 241 mg/dL (70-99) 224 mg/dL (70-99) 210 mg/dL (70-99) Sodium Level 147 mmol/L (136-145) Test 01/24/18 06:41 01/24/18 07:20 01/24/18 09:40 Glucose (Fingerstick) 215 mg/dL (70-99) 184 mg/dL (70-99) White Blood Count 18.2 x10^3/uL (4.0-11.0) Red Blood Count 3.65 x10^6/uL (4.30-5.70) Hemoglobin 11.7 g/dL (13.0-17.5) Hematocrit 35.3 % (39.0-53.0) Mean Corpuscular Volume 97 fL (79-100) Mean Corpuscular Hemoglobin 32 pg (25-35) Mean Corpuscular Hemoglobin Concent 33 g/dL (31-37) Red Cell Distribution Width 14.1 % (11.5-14.5) Platelet Count 532 x10^3/uL (140-400) Neutrophils (%) (Auto) 80 % (31-73) Lymphocytes (%) (Auto) 12 % (24-48) Monocytes (%) (Auto) 5 % (0-9) Eosinophils (%) (Auto) 3 % (0-3) Basophils (%) (Auto) 1 % (0-3) Neutrophils # (Auto) 14.4 x10^3uL (1.8-7.7) Lymphocytes # (Auto) 2.1 x10^3/uL (1.0-4.8) Monocytes # (Auto) 0.9 x10^3/uL (0.0-1.1) Eosinophils # (Auto) 0.5 x10^3/uL (0.0-0.7) Basophils # (Auto) 0.2 x10^3/uL (0.0-0.2) Sodium Level 143 mmol/L (136-145) Potassium Level 3.4 mmol/L (3.5-5.1) Chloride Level 110 mmol/L (98-107) Carbon Dioxide Level 19 mmol/L (21-32) Anion Gap 14 (6-14) Blood Urea Nitrogen 48 mg/dL (8-26) Creatinine 1.8 mg/dL (0.7-1.3) Estimated GFR (Cockcroft-Gault) 41.4 Glucose Level 216 mg/dL (70-99) Calcium Level 9.4 mg/dL (8.5-10.1) Phosphorus Level 4.7 mg/dL (2.6-4.7) Magnesium Level 2.0 mg/dL (1.8-2.4) Total Bilirubin 0.5 mg/dL (0.2-1.0) Direct Bilirubin 0.2 mg/dL (0.0-0.2) Aspartate Amino Transf (AST/SGOT) 51 U/L (15-37) Alanine Aminotransferase (ALT/SGPT) 59 U/L (16-63) Alkaline Phosphatase 143 U/L (46-116) Total Protein 7.5 g/dL (6.4-8.2) Albumin 3.0 g/dL (3.4-5.0) Triglycerides Level 256 mg/dL (0-150) Laboratory Tests Test 01/23/18 18:10 01/23/18 20:44 01/23/18 21:00 01/23/18 23:59 Glucose (Fingerstick) 241 mg/dL (70-99) 224 mg/dL (70-99) 210 mg/dL (70-99) Sodium Level 147 mmol/L (136-145) Test 01/24/18 06:41 01/24/18 07:20 01/24/18 09:40 Glucose (Fingerstick) 215 mg/dL (70-99) 184 mg/dL (70-99) White Blood Count 18.2 x10^3/uL (4.0-11.0) Red Blood Count 3.65 x10^6/uL (4.30-5.70) Hemoglobin 11.7 g/dL (13.0-17.5) Hematocrit 35.3 % (39.0-53.0) Mean Corpuscular Volume 97 fL (79-100) Mean Corpuscular Hemoglobin 32 pg (25-35) Mean Corpuscular Hemoglobin Concent 33 g/dL (31-37) Red Cell Distribution Width 14.1 % (11.5-14.5) Platelet Count 532 x10^3/uL (140-400) Neutrophils (%) (Auto) 80 % (31-73) Lymphocytes (%) (Auto) 12 % (24-48) Monocytes (%) (Auto) 5 % (0-9) Eosinophils (%) (Auto) 3 % (0-3) Basophils (%) (Auto) 1 % (0-3) Neutrophils # (Auto) 14.4 x10^3uL (1.8-7.7) Lymphocytes # (Auto) 2.1 x10^3/uL (1.0-4.8) Monocytes # (Auto) 0.9 x10^3/uL (0.0-1.1) Eosinophils # (Auto) 0.5 x10^3/uL (0.0-0.7) Basophils # (Auto) 0.2 x10^3/uL (0.0-0.2) Sodium Level 143 mmol/L (136-145) Potassium Level 3.4 mmol/L (3.5-5.1) Chloride Level 110 mmol/L (98-107) Carbon Dioxide Level 19 mmol/L (21-32) Anion Gap 14 (6-14) Blood Urea Nitrogen 48 mg/dL (8-26) Creatinine 1.8 mg/dL (0.7-1.3) Estimated GFR (Cockcroft-Gault) 41.4 Glucose Level 216 mg/dL (70-99) Calcium Level 9.4 mg/dL (8.5-10.1) Phosphorus Level 4.7 mg/dL (2.6-4.7) Magnesium Level 2.0 mg/dL (1.8-2.4) Total Bilirubin 0.5 mg/dL (0.2-1.0) Direct Bilirubin 0.2 mg/dL (0.0-0.2) Aspartate Amino Transf (AST/SGOT) 51 U/L (15-37) Alanine Aminotransferase (ALT/SGPT) 59 U/L (16-63) Alkaline Phosphatase 143 U/L (46-116) Total Protein 7.5 g/dL (6.4-8.2) Albumin 3.0 g/dL (3.4-5.0) Triglycerides Level 256 mg/dL (0-150) Medications Active Scripts Medications Dose Route/Sig Max Daily Dose Days Date Category [hemp botanicals] 01/12/18 Reported Maxitrol Eye Drops (Brandon/Polymyx B Sulf/Dexameth) 5 Ml Drops.susp 1 Drop OD QID 01/12/18 Reported Multivitamins (Multivitamin) 1 Each Tablet 1 Tab PO DAILY 01/12/18 Reported Magnesium (Magnesium Oxide) 400 Mg Capsule 1 Cap PO DAILY 01/12/18 Reported Calcium (Calcium Carbonate) 500 Mg Tab.chew 500 Mg PO 01/12/18 Reported Lansoprazole 30 Mg Capsule.dr 1 Cap PO DAILY 01/12/18 Reported Losartan Potassium 25 Mg Tablet 25 Mg PO DAILY 01/12/18 Reported Tizanidine Hcl 4 Mg Tablet 1 Tab PO TID 01/12/18 Reported Tramadol Hcl 50 Mg Tablet 50 Mg PO DAILY PRN 01/12/18 Reported Bystolic (Nebivolol Hcl) 20 Mg Tablet 20 Mg PO DAILY 01/12/18 Reported Cymbalta (Duloxetine Hcl) 20 Mg Capsule.dr 1 Cap PO DAILY 01/12/18 Reported Valacyclovir (Valacyclovir Hcl) 1,000 Mg Tablet 1 Tab PO DAILY 01/12/18 Reported Ibuprofen 400 Mg Tablet 400 Mg PO PRN Q6HRS PRN 09/21/15 Reported Bystolic (Nebivolol) 10 Mg Tablet 20 Mg PO DAILY 09/21/15 Reported Amlodipine Besylate 10 Mg Tablet 10 Mg PO DAILY 09/21/15 Reported Comments Impression . 1. Acute respiratory failure./ multi-factorial 2. severe encephalopathy/ delirium/ ETOH with drawl 3. Sepsis . source pancreatitis 4. alcohol withdrawal 5. alcoholic pancreatitis 6. No obvious CHF/ normal EF 7. History of alcohol abuse. Level neg. Positive for marihuana 8. Obesity? obstructive sleep apnea-hypopnea syndrome. 9. DENISHA,, better 10. Combined met/resp acidosis. improved 11. staph bacteremia Plan . UP IN CHAIR EATING NO RESP COMPLAINTS WILL D/C SUSHMA TRANSFER OUT OF ICU EXTUBATE 01/22 JADE VELEZ MD Jan 24, 2018 13:01
--- NOTE | 2018-01-24 15:13 | RAD ---
Left hand, 3 views, 01/24/2018: HISTORY: Hand pain and swelling The fingers are held in flexion. There is moderate soft tissue swelling over the dorsum of the hand in the metacarpal region. No acute fracture or dislocation is identified. No destructive bony lesion is seen. IMPRESSION: No acute bony abnormality is detected. Electronically signed by: Guilherme Duran MD (01/24/2018 3:10 PM) [facility]
[2018-01-24] MEDS: HYDROcodone/APAP 5/325MG 1 TAB TABLET PO PRN ×2 (15:37→19:39)
[2018-01-24] MEDS ORDERED: ENALAPRILAT 1.25 MG/ML VIAL. IVP PRN (16:45)
[2018-01-24] MEDS ORDERED: TOTAL PARENTERAL NUTRITION IV SCH ×10 (22:00)
[2018-01-24] MEDS ORDERED: AMINO ACIDS IV SCH ×10 (22:00)
[2018-01-24] MEDS ORDERED: DEXTROSE 70% IV SCH ×10 (22:00)
[2018-01-24] MEDS ORDERED: [UNRECOGNIZED DRUG - OTHER] IV SCH ×10 (22:00)
[2018-01-25 00:50] VITALS: BP 148/78
[2018-01-25 04:00] VITALS: BP 144/78
[2018-01-25] MEDS: HYDROcodone/APAP 5/325MG 1 TAB TABLET PO PRN ×2 (04:17→09:12)
[2018-01-25] MEDS: GEMFIBROZIL 600 MG TABLET. PO SCH (06:34)
[2018-01-25] MEDS: PANTOPRAZOLE 40 MG TABLET.DR. PO SCH (06:34)
[2018-01-25] MEDS: HEPARIN for SUB-Q USE 5,000 UNIT/ML VIAL. SQ SCH (06:36)
[2018-01-25 07:01] LABS: BASO # 0.1 x10^3/uL (0.0-0.2); BASO % 1 % (0-3); EOS # 0.6 x10^3/uL (0.0-0.7); EOS % 5 % (0-3); HEMATOCRIT 33.5 % (39.0-53.0); HEMOGLOBIN 11.4 g/dL (13.0-17.5); LYMPH # 1.6 x10^3/uL (1.0-4.8); LYMPH % 13 % (24-48); MEAN CORPUSCULAR HEMOGLOBIN 33 pg (25-35); MEAN CORPUSCULAR HGB CONC 34 g/dL (31-37); MEAN CORPUSCULAR VOLUME 95 fL (79-100); MONO # 0.7 x10^3/uL (0.0-1.1); MONO % 6 % (0-9); NEUT # 9.4 x10^3uL (1.8-7.7); NEUT % 76 % (31-73); PLATELET COUNT 450 x10^3/uL (140-400); RED BLOOD COUNT 3.51 x10^6/uL (4.30-5.70); RED CELL DISTRIBUTION WIDTH 13.7 % (11.5-14.5); WHITE BLOOD COUNT 12.4 x10^3/uL (4.0-11.0)
[2018-01-25 07:09] LABS: CALCIUM 9.5 mg/dL (8.5-10.1); CREATININE 1.7 mg/dL (0.7-1.3); GFR 44.2; MAGNESIUM 1.7 mg/dL (1.8-2.4)
[2018-01-25 07:10] LABS: POTASSIUM 3.9 mmol/L (3.5-5.1)
[2018-01-25] MEDS: IV DEXTROSE 5% 1,000 ML IV SCH (08:05)
--- NOTE | 2018-01-25 08:13 | PDOC ---
SUBJECTIVE ROS Stable, sitting up on side of bed .He feels may be having gout flare OBJECTIVE Vital Signs Vital Signs Date Time Temp Pulse Resp B/P (MAP) Pulse Ox O2 Delivery O2 Flow Rate FiO2 01/25/18 05:21 18 95 Room Air 01/25/18 04:00 98.0 78 144/78 (100) 98.0 01/24/18 20:00 2.0 I & 0 Intake and Output 01/25/18 07:00 Intake Total 3839.90 ml Output Total 4200 ml Balance -360.10 ml Intake Oral 990 ml IV Total 2849.90 ml Output Urine Total 2200 ml Stool Total 2000 ml # Voids 2 PHYSICAL EXAM Physical Exam GENERAL: awake ,sitting up HEENT OM moist LUNGS: Diminished aeration in the bases. HEART: S1 S2 Regular rhythm. ABDOMEN: Obese. BS active, GENITOURINARY: No Cook , Rectal Tube+ EXTREMITIES: No edema or cyanosis SKIN: He has tattoos. No rash NEUROLOGIC: Alert, DIAGNOSIS/ASSESSMENT Assessment & Plan DENISHA - ATN with Oliguria. Creatinine is improving. Urine output good E-Lytes and acid base stable Polyuria: Was started on DDAVP, UOP stable Pancreatitis- h/o alcohol and hypertriglyceridemia Hypernatremia- Was on DDAVP , Na Normal Hypomagnesemia: Replace when necessary as needed Hypokalemia:Normal Replacement per protocol History of Heavy alcohol use, now with possible alcoholic pancreatitis associated with elevated triglycerides. ? Gout - Defer to Primary Discussed with RN COMMENT/RELEVANT DATA Meds Current Medications Medications (Trade) Dose Ordered Sig/Yamile Start Time Stop Time Status Last Admin Dose Admin Acetaminophen (Tylenol) 500 mg 1X PRN PRN 01/15/18 09:15 01/15/18 09:32 DC Acetaminophen/ Hydrocodone Bitart (Lortab 5/325) 2 tab PRN Q4HRS PRN 01/24/18 14:30 01/25/18 04:17 2 TAB Albumin Human 200 ml @ 200 mls/hr 1X ONCE 01/15/18 09:15 01/15/18 09:32 DC Albuterol/ Ipratropium (Duoneb) 3 ml RTQID 01/12/18 08:00 01/24/18 19:31 3 ML Amlodipine Besylate (Norvasc) 10 mg DAILY 01/21/18 14:00 01/24/18 09:26 10 MG Aspirin (Children'S Aspirin) 324 mg 1X ONCE 01/11/18 13:45 01/11/18 13:46 DC 01/11/18 14:02 324 MG Atropine Sulfate (ATROPINE 0.5mg SYRINGE) 0.5 mg PRN Q5MIN PRN 01/11/18 16:45 Chlorhexidine Gluconate (Peridex) 15 ml BID 01/16/18 21:00 Cancel Clonidine HCl (Catapres Tts-1) 1 patch WEEKLY 01/22/18 21:00 01/22/18 20:52 1 PATCH Daptomycin 780 mg/ Sodium Chloride 50 ml @ 100 mls/hr Q48H 01/18/18 15:30 01/21/18 07:51 DC 01/20/18 14:25 100 MLS/HR Desmopressin Acetate (Ddavp) 6 mcg BID 01/19/18 12:30 01/21/18 10:41 DC 01/20/18 21:00 6 MCG Desmopressin Acetate 6 mcg/ Sodium Chloride 51.5 ml @ 102 mls/hr BID 01/23/18 11:00 01/24/18 21:06 102 MLS/HR Dexmedetomidine HCl 200 mcg/ Sodium Chloride 50 ml @ 0 mls/hr CONT PRN 01/11/18 21:00 01/24/18 15:03 DC 01/22/18 11:48 10.61 MLS/HR Dextrose 1,000 ml @ 75 mls/hr [id number] 01/21/18 10:45 01/24/18 16:24 75 MLS/HR Dextrose (Dextrose 50%-Water Syringe) 12.5 gm PRN Q15MIN PRN 01/18/18 16:30 UNV Dextrose/Sodium Chloride 1,000 ml @ 50 mls/hr Q20H 01/16/18 10:00 01/17/18 13:11 DC Diphenhydramine HCl (Benadryl) 25 mg 1X PRN PRN 01/15/18 09:15 01/15/18 09:32 DC Doxycycline Hyclate 100 mg/ Dextrose 100 ml @ 50 mls/hr Q12HR 01/13/18 09:00 01/21/18 07:51 DC 01/20/18 21:30 50 MLS/HR Enalaprilat (Vasotec Inj) 1.25 mg PRN Q6HRS PRN 01/24/18 16:45 Epinephrine HCl (EPINEPHrine SYRINGE) 1 mg STK-MED ONCE 01/11/18 19:00 01/13/18 07:59 DC Famotidine (Pepcid Vial) 20 mg DAILY 01/15/18 09:00 01/21/18 13:58 DC 01/21/18 08:46 20 MG Fentanyl Citrate (Fentanyl 2ml Vial) 50 mcg PRN Q1HR PRN 01/11/18 18:45 01/21/18 08:42 DC 01/11/18 20:21 50 MCG Gemfibrozil (Lopid) 600 mg [id number] 01/12/18 10:00 01/25/18 06:34 600 MG Haloperidol Lactate (Haldol Inj) 5 mg PRN Q6HRS PRN 01/11/18 16:15 01/23/18 19:29 5 MG Heparin Sodium (Porcine) (Heparin Sodium) 5,000 unit Q8HRS 01/12/18 14:00 01/25/18 06:36 5,000 UNIT Hydralazine HCl (Apresoline Inj) 20 mg PRN TID PRN 01/16/18 15:30 01/22/18 16:31 20 MG Hydromorphone HCl (Dilaudid) 0.4 mg PRN Q1HR PRN 01/11/18 18:45 01/21/18 14:41 DC Ibuprofen (Motrin) 400 mg PRN Q6HRS PRN 01/21/18 13:45 Info (Icu Electrolyte Protocol) 1 ea CONT PRN PRN 01/19/18 12:30 Info (PHARMACY MONITORING -- do not chart) 1 each PRN DAILY PRN 01/15/18 09:15 01/21/18 14:04 DC Info (Tpn Per Pharmacy) 1 each PRN DAILY PRN 01/14/18 09:45 01/24/18 12:32 DC 01/24/18 12:28 1 EACH Insulin Glargine (Lantus) 20 units BID 01/23/18 09:00 01/24/18 21:16 20 UNITS Insulin Human Lispro (HumaLOG) 0-9 UNITS TIDACHC 01/24/18 16:30 01/24/18 16:28 4 UNITS Insulin Human Regular 150 unit/ Sodium Chloride 151.5 ml @ 0 mls/hr CONT PRN 01/18/18 16:30 01/21/18 15:43 5.1 MLS/HR Labetalol HCl (Normodyne Iv Push) 20 mg PRN Q2HR PRN 01/14/18 15:30 01/22/18 19:52 20 MG Lidocaine/Sodium Bicarbonate (Buffered Lidocaine 1%) 6 ml 1X ONCE 01/20/18 07:45 01/20/18 07:47 DC Linezolid/Dextrose 300 ml @ 300 mls/hr Q12HR 01/12/18 21:00 01/15/18 12:06 DC 01/15/18 08:39 300 MLS/HR Lorazepam (Ativan) 4 mg PRN Q1HR PRN 01/11/18 18:15 01/23/18 17:23 4 MG Lorazepam 100 mg/ Sodium Chloride 100 ml @ 2 mls/hr CONT PRN 01/16/18 09:45 01/24/18 15:03 DC 01/21/18 02:22 5 MLS/HR Losartan Potassium (Cozaar) 25 mg DAILY 01/21/18 14:00 01/24/18 09:22 25 MG Magnesium Oxide (Magnesium Oxide) 400 mg DAILY 01/22/18 09:00 01/24/18 09:26 400 MG Magnesium Sulfate 50 ml @ 25 mls/hr PRN DAILY PRN 01/18/18 11:00 01/18/18 11:44 25 MLS/HR Magnesium Sulfate/ Dextrose 100 ml @ 100 mls/hr 1X ONCE 01/18/18 11:30 01/18/18 12:29 DC 01/18/18 11:49 100 MLS/HR Meropenem 500 mg/ Sodium Chloride 50 ml @ 100 mls/hr Q8HRS 01/21/18 14:30 01/21/18 16:22 DC Metoprolol Tartrate (Lopressor) 50 mg BID 01/21/18 14:00 01/24/18 21:08 50 MG Metronidazole 100 ml @ 100 mls/hr Q8HRS 01/22/18 22:00 01/23/18 22:06 DC 01/23/18 15:12 100 MLS/HR Midazolam HCl 100 ml @ 1 mls/hr CONT PRN 01/11/18 18:45 01/16/18 09:52 DC 01/16/18 04:52 15 MLS/HR Morphine Sulfate (Morphine Sulfate) 4 mg PRN Q1HR PRN 01/11/18 18:45 UNV Multivitamins (Thera M Plus) 1 tab DAILY 01/22/18 09:00 01/24/18 09:26 1 TAB Multivitamins 10 ml/Thiamine HCl 100 mg/Folic Acid 1 mg/Sodium Chloride 1,011.2 ml @ 1,000.088 mls/hr 1X ONCE 01/15/18 08:15 01/15/18 09:15 UNV Neomycin/ Polymyxin/ Dexamethasone (Maxitrol) 1 drop QID 01/21/18 17:00 01/24/18 21:07 1 DROP Nicardipine HCl 50 mg/Sodium Chloride 270 ml @ 27 mls/hr CONT PRN 01/16/18 16:30 01/24/18 02:33 27 MLS/HR Non-Formulary Medication (Nebivolol Hcl (Bystolic)) 20 mg DAILY 01/22/18 09:00 UNV Norepinephrine Bitartrate 250 ml @ 1.875 mls/ hr CONT PRN 01/18/18 16:30 01/24/18 15:03 DC Olanzapine (ZyPREXA IM) 10 mg 1X ONCE 01/11/18 18:45 01/11/18 18:46 DC 01/11/18 18:42 10 MG Pantoprazole Sodium (Protonix) 40 mg 1X ONCE 01/23/18 19:15 01/23/18 19:16 DC 01/23/18 19:29 40 MG Pharmacy Consult (C.diff Med Screen By Rx) 1 each PRN 1X PRN 01/15/18 09:30 Cancel Piperacillin Sod/ Tazobactam Sod (Zosyn Per Pharmacy) 1 each PRN DAILY PRN 01/11/18 20:15 01/13/18 08:00 DC Piperacillin Sod/ Tazobactam Sod 2.25 gm/Sodium Chloride 50 ml @ 100 mls/hr Q8HRS 01/13/18 14:00 01/16/18 07:31 DC 01/16/18 05:59 100 MLS/HR Piperacillin Sod/ Tazobactam Sod 4.5 gm/Sodium Chloride 100 ml @ 200 mls/hr Q6HRS 01/12/18 00:00 01/13/18 07:57 DC 01/13/18 06:48 200 MLS/HR Potassium Chloride/Water 50 ml @ 50 mls/hr 1X ONCE 01/23/18 11:00 01/23/18 11:59 DC 01/23/18 11:57 50 MLS/HR Potassium Acetate 30 meq/Magnesium Sulfate 25 meq/ Calcium Gluconate 10 meq/ Multivitamins 10 ml/Chromium/ Copper/Manganese/ Seleni/Zn 1 ml/ Thiamine HCl 100 mg/Folic Acid 1 mg/Total Parenteral Nutrition/Amino Acids/Dextrose/ Fat Emulsion Intravenous 3,000 ml @ 125 mls/hr TPN CONT 01/18/18 22:00 01/19/18 21:59 DC 01/18/18 21:50 125 MLS/HR Potassium Acetate 30 meq/Potassium Phosphate 3.4 mmol/Magnesium Sulfate 15 meq/ Calcium Gluconate 10 meq/ Multivitamins 10 ml/Chromium/ Copper/Manganese/ Seleni/Zn 1 ml/ Thiamine HCl 100 mg/Folic Acid 1 mg/Total Parenteral Nutrition/Amino Acids/Dextrose 1,512 ml @ 63 mls/hr TPN CONT 01/16/18 22:00 01/17/18 21:59 DC 01/16/18 21:52 63 MLS/HR Potassium Acetate 30 meq/Potassium Phosphate 3.4 mmol/Magnesium Sulfate 18 meq/ Calcium Gluconate 10 meq/ Multivitamins 10 ml/Chromium/ Copper/Manganese/ Seleni/Zn 1 ml/ Thiamine HCl 100 mg/Folic Acid 1 mg/Total Parenteral Nutrition/Amino Acids/Dextrose 1,728 ml @ 72 mls/hr TPN CONT 01/17/18 22:00 01/18/18 21:59 DC 01/17/18 21:25 72 MLS/HR Potassium Acetate 60 meq/Magnesium Sulfate 15 meq/ Calcium Gluconate 10 meq/ Multivitamins 10 ml/Chromium/ Copper/Manganese/ Seleni/Zn 1 ml/ Thiamine HCl 100 mg/Folic Acid 1 mg/Total Parenteral Nutrition/Amino Acids/Dextrose 3,000 ml @ 125 mls/hr TPN CONT 01/23/18 22:00 01/24/18 12:27 DC 01/23/18 22:14 125 MLS/HR Potassium Acetate 60 meq/Magnesium Sulfate 25 meq/ Calcium Gluconate 10 meq/ Multivitamins 10 ml/Chromium/ Copper/Manganese/ Seleni/Zn 1 ml/ Thiamine HCl 100 mg/Folic Acid 1 mg/Total Parenteral Nutrition/Amino Acids/Dextrose 3,000 ml @ 125 mls/hr TPN CONT 01/21/18 22:00 01/22/18 22:00 DC 01/21/18 22:22 125 MLS/HR Potassium Acetate 60 meq/Magnesium Sulfate 25 meq/ Calcium Gluconate 10 meq/ Multivitamins 10 ml/Chromium/ Copper/Manganese/ Seleni/Zn 1 ml/ Thiamine HCl 100 mg/Folic Acid 1 mg/Total Parenteral Nutrition/Amino Acids/Dextrose/ Fat Emulsion Intravenous 3,000 ml @ 125 mls/hr TPN CONT 01/21/18 22:00 01/21/18 22:00 DC Potassium Acetate 80 meq/Magnesium Sulfate 15 meq/ Calcium Gluconate 10 meq/ Multivitamins 10 ml/Chromium/ Copper/Manganese/ Seleni/Zn 1 ml/ Thiamine HCl 100 mg/Folic Acid 1 mg/Total Parenteral Nutrition/Amino Acids/Dextrose/ Fat Emulsion Intravenous 3,000 ml @ 125 mls/hr TPN CONT 01/24/18 22:00 01/24/18 22:00 DC Propofol (Diprivan) 1,000 mg STK-MED ONCE 01/11/18 19:00 01/13/18 07:59 DC Sodium Acetate 75 meq/Potassium Chloride 30 meq/ Potassium Phosphate 6.8 mmol/Magnesium Sulfate 13 meq/ Calcium Gluconate 10 meq/ Multivitamins 10 ml/Chromium/ Copper/Manganese/ Seleni/Zn 1 ml/ Thiamine HCl 100 mg/Folic Acid 1 mg/Total Parenteral Nutrition/Amino Acids/Dextro... 1,512 ml @ 63 mls/hr TPN CONT 01/15/18 22:00 01/16/18 21:59 DC 01/15/18 22:07 63 MLS/HR Sodium Bicarbonate (Sodium Bicarb Adult 8.4% Syr) 100 meq 1X ONCE 01/14/18 11:30 01/14/18 11:31 DC 01/14/18 11:34 100 MEQ Sodium Chloride 1,000 ml @ 75 mls/hr [id number] 01/20/18 15:45 01/21/18 10:41 DC 01/21/18 08:46 75 MLS/HR Sodium Chloride 45 meq/Sodium Acetate 45 meq/ Potassium Chloride 30 meq/ Potassium Phosphate 6.8 mmol/Magnesium Sulfate 10 meq/ Calcium Gluconate 10 meq/ Multivitamins 10 ml/Chromium/ Copper/Manganese/ Seleni/Zn 1 ml/ Thiamine HCl 100 mg/Folic Acid 1 mg/Total Julieta... 1,512 ml @ 63 mls/hr TPN CONT 01/14/18 22:00 01/15/18 21:59 DC 01/14/18 21:37 63 MLS/HR Succinylcholine Chloride (Anectine) 200 mg STK-MED ONCE 01/11/18 19:00 01/13/18 07:59 DC Tizanidine HCl (Zanaflex) 4 mg TID 01/21/18 14:00 01/24/18 21:08 4 MG Tramadol HCl (Ultram) 50 mg DAILY PRN 01/21/18 12:00 01/23/18 22:22 50 MG Vancomycin HCl (Vanco Per Pharmacy) 1 each PRN DAILY PRN 01/11/18 20:15 01/12/18 13:14 DC 01/12/18 11:47 1 EACH Vancomycin HCl (Vancomycin Trough Level) 1 each 1X ONCE 01/12/18 20:30 01/12/18 20:30 DC Vancomycin HCl (Vancomycin Oral Solution) 125 mg [id number] 01/21/18 17:00 01/24/18 21:07 125 MG Vancomycin HCl 1.5 gm/Sodium Chloride 500 ml @ 250 mls/hr Q12H 01/12/18 09:00 01/12/18 13:14 DC 01/12/18 08:44 250 MLS/HR Vancomycin HCl 2 gm/Sodium Chloride 500 ml @ 250 mls/hr 1X ONCE 01/11/18 21:00 01/11/18 22:59 DC 01/11/18 21:00 250 MLS/HR Vecuronium [place] 100 mg/ Dextrose 100 ml @ 7.89 mls/hr CONT PRN 01/17/18 19:45 Cancel Vecuronium [place] 100 mg/ Miscellaneous 100 ml @ 7.89 mls/hr CONT PRN 01/17/18 19:45 01/24/18 15:03 DC 01/18/18 22:55 5.52 MLS/HR Vecuronium [place] (Norcuron Bolus) 6 mg PRN Q4HRS PRN 01/15/18 15:00 01/24/18 15:03 DC 01/21/18 02:08 6 MG Venlafaxine HCl (Effexor) 50 mg BID 01/21/18 14:00 01/24/18 21:07 50 MG Lab Laboratory Tests Test 01/24/18 09:40 01/24/18 12:21 01/24/18 16:26 01/24/18 21:03 Glucose (Fingerstick) 184 mg/dL (70-99) 203 mg/dL (70-99) 169 mg/dL (70-99) 138 mg/dL (70-99) Test 01/25/18 06:40 White Blood Count 12.4 x10^3/uL (4.0-11.0) Red Blood Count 3.51 x10^6/uL (4.30-5.70) Hemoglobin 11.4 g/dL (13.0-17.5) Hematocrit 33.5 % (39.0-53.0) Mean Corpuscular Volume 95 fL (79-100) Mean Corpuscular Hemoglobin 33 pg (25-35) Mean Corpuscular Hemoglobin Concent 34 g/dL (31-37) Red Cell Distribution Width 13.7 % (11.5-14.5) Platelet Count 450 x10^3/uL (140-400) Neutrophils (%) (Auto) 76 % (31-73) Lymphocytes (%) (Auto) 13 % (24-48) Monocytes (%) (Auto) 6 % (0-9) Eosinophils (%) (Auto) 5 % (0-3) Basophils (%) (Auto) 1 % (0-3) Neutrophils # (Auto) 9.4 x10^3uL (1.8-7.7) Lymphocytes # (Auto) 1.6 x10^3/uL (1.0-4.8) Monocytes # (Auto) 0.7 x10^3/uL (0.0-1.1) Eosinophils # (Auto) 0.6 x10^3/uL (0.0-0.7) Basophils # (Auto) 0.1 x10^3/uL (0.0-0.2) Sodium Level 140 mmol/L (136-145) Potassium Level 3.9 mmol/L (3.5-5.1) Chloride Level 106 mmol/L (98-107) Carbon Dioxide Level 21 mmol/L (21-32) Anion Gap 13 (6-14) Blood Urea Nitrogen 38 mg/dL (8-26) Creatinine 1.7 mg/dL (0.7-1.3) Estimated GFR (Cockcroft-Gault) 44.2 Glucose Level 182 mg/dL (70-99) Calcium Level 9.5 mg/dL (8.5-10.1) Magnesium Level 1.7 mg/dL (1.8-2.4) Results All relevant outside records, renal labs, imaging studies, telemetry/EKG's were reviewed. NERISSA BURR MD Jan 25, 2018 08:13
[2018-01-25 08:15] VITALS: BP 199/90
[2018-01-25] MEDS: IPRATRPIUM/ALBUTEROL 0.5/2.5MG 3 ML NEBU. NEB SCH ×2 (09:17→11:49)
[2018-01-25] MEDS: NEO/POLYMYX/DEXAMETH OPHTH SUSPENSION 5ML BOTTLE. OD SCH (09:39)
[2018-01-25] MEDS: VENLAFAXINE 50 MG TABLET. PO SCH (09:39)
[2018-01-25] MEDS: amLODIPine BESYLATE 10 MG TABLET PO SCH (09:40)
[2018-01-25] MEDS: MULTIVITAMIN with MINERAL TABLET. PO SCH (09:41)
[2018-01-25] MEDS: METOPROLOL TART IMMED RELEASE 50 MG TABLET. PO SCH (09:41)
[2018-01-25] MEDS: MAGNESIUM OXIDE 400 MG TABLET PO SCH (09:41)
[2018-01-25] MEDS: tiZANidine 4 MG TABLET. PO SCH (09:42)
[2018-01-25] MEDS: LOSARTAN POTASSIUM 25 MG TABLET. PO SCH (09:42)
[2018-01-25] MEDS: VANCOMYCIN 125 MG/2.5 ML ORAL SOLUTION. PO SCH (09:43)
[2018-01-25] MEDS: INSULIN GLARGINE 300 UNITS/3 ML INSULN.PEN. SQ SCH (09:50)
[2018-01-25] MEDS: INSULIN LISPRO 300 UNITS/3 ML INSULN.PEN. SQ SCH ×2 (09:51→11:30)
[2018-01-25] MEDS: traMADol 50 MG TABLET PO PRN (10:12)
--- NOTE | 2018-01-25 10:59 | PDOC ---
PULMONARY PROGRESS NOTES Subjective NO RESP COMPLAINTS Vitals Vital Signs Date Time Temp Pulse Resp B/P (MAP) Pulse Ox O2 Delivery O2 Flow Rate FiO2 01/25/18 10:12 98 Room Air 2.0 01/25/18 09:42 78 144/78 01/25/18 08:15 97.6 17 97.6 ROS: No Nausea, No Chest Pain, No Abdominal Pain, No Increase Cough General: Confused Lungs: Clear Cardiovascular: S1, S2 Abdomen: Soft Neuro Exam: Alert Extremities: Other (1+edema) Skin: Warm Labs Laboratory Tests Test 01/23/18 12:53 01/23/18 18:10 01/23/18 20:44 01/23/18 21:00 Glucose (Fingerstick) 247 mg/dL (70-99) 241 mg/dL (70-99) 224 mg/dL (70-99) Sodium Level 147 mmol/L (136-145) Test 01/23/18 23:59 01/24/18 06:41 01/24/18 07:20 01/24/18 09:40 Glucose (Fingerstick) 210 mg/dL (70-99) 215 mg/dL (70-99) 184 mg/dL (70-99) White Blood Count 18.2 x10^3/uL (4.0-11.0) Red Blood Count 3.65 x10^6/uL (4.30-5.70) Hemoglobin 11.7 g/dL (13.0-17.5) Hematocrit 35.3 % (39.0-53.0) Mean Corpuscular Volume 97 fL (79-100) Mean Corpuscular Hemoglobin 32 pg (25-35) Mean Corpuscular Hemoglobin Concent 33 g/dL (31-37) Red Cell Distribution Width 14.1 % (11.5-14.5) Platelet Count 532 x10^3/uL (140-400) Neutrophils (%) (Auto) 80 % (31-73) Lymphocytes (%) (Auto) 12 % (24-48) Monocytes (%) (Auto) 5 % (0-9) Eosinophils (%) (Auto) 3 % (0-3) Basophils (%) (Auto) 1 % (0-3) Neutrophils # (Auto) 14.4 x10^3uL (1.8-7.7) Lymphocytes # (Auto) 2.1 x10^3/uL (1.0-4.8) Monocytes # (Auto) 0.9 x10^3/uL (0.0-1.1) Eosinophils # (Auto) 0.5 x10^3/uL (0.0-0.7) Basophils # (Auto) 0.2 x10^3/uL (0.0-0.2) Sodium Level 143 mmol/L (136-145) Potassium Level 3.4 mmol/L (3.5-5.1) Chloride Level 110 mmol/L (98-107) Carbon Dioxide Level 19 mmol/L (21-32) Anion Gap 14 (6-14) Blood Urea Nitrogen 48 mg/dL (8-26) Creatinine 1.8 mg/dL (0.7-1.3) Estimated GFR (Cockcroft-Gault) 41.4 Glucose Level 216 mg/dL (70-99) Calcium Level 9.4 mg/dL (8.5-10.1) Phosphorus Level 4.7 mg/dL (2.6-4.7) Magnesium Level 2.0 mg/dL (1.8-2.4) Total Bilirubin 0.5 mg/dL (0.2-1.0) Direct Bilirubin 0.2 mg/dL (0.0-0.2) Aspartate Amino Transf (AST/SGOT) 51 U/L (15-37) Alanine Aminotransferase (ALT/SGPT) 59 U/L (16-63) Alkaline Phosphatase 143 U/L (46-116) Total Protein 7.5 g/dL (6.4-8.2) Albumin 3.0 g/dL (3.4-5.0) Triglycerides Level 256 mg/dL (0-150) Test 01/24/18 12:21 01/24/18 16:26 01/24/18 21:03 01/25/18 06:40 Glucose (Fingerstick) 203 mg/dL (70-99) 169 mg/dL (70-99) 138 mg/dL (70-99) White Blood Count 12.4 x10^3/uL (4.0-11.0) Red Blood Count 3.51 x10^6/uL (4.30-5.70) Hemoglobin 11.4 g/dL (13.0-17.5) Hematocrit 33.5 % (39.0-53.0) Mean Corpuscular Volume 95 fL (79-100) Mean Corpuscular Hemoglobin 33 pg (25-35) Mean Corpuscular Hemoglobin Concent 34 g/dL (31-37) Red Cell Distribution Width 13.7 % (11.5-14.5) Platelet Count 450 x10^3/uL (140-400) Neutrophils (%) (Auto) 76 % (31-73) Lymphocytes (%) (Auto) 13 % (24-48) Monocytes (%) (Auto) 6 % (0-9) Eosinophils (%) (Auto) 5 % (0-3) Basophils (%) (Auto) 1 % (0-3) Neutrophils # (Auto) 9.4 x10^3uL (1.8-7.7) Lymphocytes # (Auto) 1.6 x10^3/uL (1.0-4.8) Monocytes # (Auto) 0.7 x10^3/uL (0.0-1.1) Eosinophils # (Auto) 0.6 x10^3/uL (0.0-0.7) Basophils # (Auto) 0.1 x10^3/uL (0.0-0.2) Sodium Level 140 mmol/L (136-145) Potassium Level 3.9 mmol/L (3.5-5.1) Chloride Level 106 mmol/L (98-107) Carbon Dioxide Level 21 mmol/L (21-32) Anion Gap 13 (6-14) Blood Urea Nitrogen 38 mg/dL (8-26) Creatinine 1.7 mg/dL (0.7-1.3) Estimated GFR (Cockcroft-Gault) 44.2 Glucose Level 182 mg/dL (70-99) Calcium Level 9.5 mg/dL (8.5-10.1) Magnesium Level 1.7 mg/dL (1.8-2.4) Test 01/25/18 08:09 Glucose (Fingerstick) 186 mg/dL (70-99) Laboratory Tests Test 01/24/18 12:21 01/24/18 16:26 01/24/18 21:03 01/25/18 06:40 Glucose (Fingerstick) 203 mg/dL (70-99) 169 mg/dL (70-99) 138 mg/dL (70-99) White Blood Count 12.4 x10^3/uL (4.0-11.0) Red Blood Count 3.51 x10^6/uL (4.30-5.70) Hemoglobin 11.4 g/dL (13.0-17.5) Hematocrit 33.5 % (39.0-53.0) Mean Corpuscular Volume 95 fL (79-100) Mean Corpuscular Hemoglobin 33 pg (25-35) Mean Corpuscular Hemoglobin Concent 34 g/dL (31-37) Red Cell Distribution Width 13.7 % (11.5-14.5) Platelet Count 450 x10^3/uL (140-400) Neutrophils (%) (Auto) 76 % (31-73) Lymphocytes (%) (Auto) 13 % (24-48) Monocytes (%) (Auto) 6 % (0-9) Eosinophils (%) (Auto) 5 % (0-3) Basophils (%) (Auto) 1 % (0-3) Neutrophils # (Auto) 9.4 x10^3uL (1.8-7.7) Lymphocytes # (Auto) 1.6 x10^3/uL (1.0-4.8) Monocytes # (Auto) 0.7 x10^3/uL (0.0-1.1) Eosinophils # (Auto) 0.6 x10^3/uL (0.0-0.7) Basophils # (Auto) 0.1 x10^3/uL (0.0-0.2) Sodium Level 140 mmol/L (136-145) Potassium Level 3.9 mmol/L (3.5-5.1) Chloride Level 106 mmol/L (98-107) Carbon Dioxide Level 21 mmol/L (21-32) Anion Gap 13 (6-14) Blood Urea Nitrogen 38 mg/dL (8-26) Creatinine 1.7 mg/dL (0.7-1.3) Estimated GFR (Cockcroft-Gault) 44.2 Glucose Level 182 mg/dL (70-99) Calcium Level 9.5 mg/dL (8.5-10.1) Magnesium Level 1.7 mg/dL (1.8-2.4) Test 01/25/18 08:09 Glucose (Fingerstick) 186 mg/dL (70-99) Medications Active Scripts Medications Dose Route/Sig Max Daily Dose Days Date Category [hemp botanicals] 01/12/18 Reported Maxitrol Eye Drops (Brandon/Polymyx B Sulf/Dexameth) 5 Ml Drops.susp 1 Drop OD QID 01/12/18 Reported Multivitamins (Multivitamin) 1 Each Tablet 1 Tab PO DAILY 01/12/18 Reported Magnesium (Magnesium Oxide) 400 Mg Capsule 1 Cap PO DAILY 01/12/18 Reported Calcium (Calcium Carbonate) 500 Mg Tab.chew 500 Mg PO 01/12/18 Reported Lansoprazole 30 Mg Capsule.dr 1 Cap PO DAILY 01/12/18 Reported Losartan Potassium 25 Mg Tablet 25 Mg PO DAILY 01/12/18 Reported Tizanidine Hcl 4 Mg Tablet 1 Tab PO TID 01/12/18 Reported Tramadol Hcl 50 Mg Tablet 50 Mg PO DAILY PRN 01/12/18 Reported Bystolic (Nebivolol Hcl) 20 Mg Tablet 20 Mg PO DAILY 01/12/18 Reported Cymbalta (Duloxetine Hcl) 20 Mg Capsule.dr 1 Cap PO DAILY 01/12/18 Reported Valacyclovir (Valacyclovir Hcl) 1,000 Mg Tablet 1 Tab PO DAILY 01/12/18 Reported Ibuprofen 400 Mg Tablet 400 Mg PO PRN Q6HRS PRN 09/21/15 Reported Bystolic (Nebivolol) 10 Mg Tablet 20 Mg PO DAILY 09/21/15 Reported Amlodipine Besylate 10 Mg Tablet 10 Mg PO DAILY 09/21/15 Reported Comments Impression . 1. Acute respiratory failure./ multi-factorial 2. severe encephalopathy/ delirium/ ETOH with drawl 3. Sepsis . source pancreatitis 4. alcohol withdrawal 5. alcoholic pancreatitis 6. No obvious CHF/ normal EF 7. History of alcohol abuse. Level neg. Positive for marihuana 8. Obesity? obstructive sleep apnea-hypopnea syndrome. 9. DENISHA,, better 10. Combined met/resp acidosis. improved 11. staph bacteremia Plan . OK TO TRANSFER TO [facility] NO RESP COMPLAINTS WILL D/C ORDAZ EXTUBATE 01/22 JADE VELEZ MD Jan 25, 2018 10:59
[2018-01-25] MEDS: NORMAL SALINE IV SCH (11:08)
[2018-01-25] MEDS: DESMOPRESSIN IV SCH (11:08)
[2018-01-25] MEDS: MORPHINE SULFATE 4 MG/ML VIAL. IV PRN (11:18)
[2018-01-25 12:08] VITALS: BP 119/72
--- NOTE | 2018-01-25 12:14 | DISCH ---
DISCHARGE DISCHARGE INFORMATION: FINAL DIAGNOSIS Problems Medical Problems: (1) Diabetic keto-acidosis Status: Acute (2) Hyperglycemia due to type 2 diabetes mellitus Status: Acute (3) Metabolic acidemia Status: Acute (4) Metabolic encephalopathy Status: Acute CONDITION ON DISCHARGE: Stable CODE STATUS: Code Status: Full CARE HOME: SNF STAY <30 DAYS: Yes HOSPICE: HOSPICE: No HOSPICE EVAL & TREAT: No LTAC: ADMIT TO LTAC: Yes POST DISCHARGE ORDERS: WEIGHT BEARING STATUS: Other, see below (as per PT recs) DIET AFTER DISCHARGE: Cardiac WOUND/INCISION CARE: Other, see below (solar engineer eval and tx) TREATMENT/EQUIPMENT ORDERS: Occupational Therapy For: Evaluation/Treatment Speech Language Pathology For: Evaluation/Treatment DISCHARGE MEDICATIONS: Home Meds Reported Medications [hemp botanicals] No Conflict Check 01/12/18 Brandon/Polymyx B Sulf/Dexameth (MAXITROL EYE DROPS) 5 Ml Drops.susp, 1 DROP OD QID , #5 ML 01/12/18 Multivitamin (MULTIVITAMINS) 1 Each Tablet, 1 TAB PO DAILY, #90 TAB 3 Refills 01/12/18 Magnesium Oxide (MAGNESIUM) 400 Mg Capsule, 1 CAP PO DAILY, #30 CAP 3 Refills 01/12/18 Calcium Carbonate (CALCIUM) 500 Mg Tab.chew, 500 MG PO, TAB.CHEW 01/12/18 Lansoprazole (LANSOPRAZOLE) 30 Mg Capsule.dr, 1 CAP PO DAILY, #30 CAP 5 Refills 01/12/18 Losartan Potassium (LOSARTAN POTASSIUM) 25 Mg Tablet, 25 MG PO DAILY, TAB 01/12/18 Tizanidine Hcl (TIZANIDINE HCL) 4 Mg Tablet, 1 TAB PO TID, #90 TAB 01/12/18 Tramadol Hcl (TRAMADOL HCL) 50 Mg Tablet, 50 MG PO DAILY PRN for PAIN, TAB 0 Refills 01/12/18 Nebivolol Hcl (BYSTOLIC) 20 Mg Tablet, 20 MG PO DAILY, TAB 01/12/18 Duloxetine Hcl (CYMBALTA) 20 Mg Capsule.dr, 1 CAP PO DAILY, #30 CAP 2 Refills 01/12/18 Valacyclovir Hcl (VALACYCLOVIR) 1,000 Mg Tablet, 1 TAB PO DAILY, #30 TAB 3 Refills 01/12/18 Ibuprofen (IBUPROFEN) 400 Mg Tablet, 400 MG PO PRN Q6HRS PRN for INFLAMMATION, TAB 6/22/16 Nebivolol Hcl (BYSTOLIC) 10 Mg Tablet, 20 MG PO DAILY, TAB 09/21/15 Amlodipine Besylate (AMLODIPINE BESYLATE) 10 Mg Tablet, 10 MG PO DAILY, TAB 09/21/15 DREA SORENSON III DO Jan 25, 2018 12:14
--- NOTE | 2018-01-25 12:30 | PDOC ---
PROGRESS NOTES Chief Complaint Chief Complaint Acute respiratory failure ETOH intoxication versus dependence, not protecting airway hence intubated at the emergency room LLL pneumonia Sepsis likely secondary to LLL pneumonia Severe agitation, could be secondary to alcohol withdrawal versus sepsis versus others Pancreatitis - hyperglycemia with hypertriglyceridemia Elevated BNP and troponin elevation Obesity BMI 39 - poss obstructive sleep apnea-hypopnea syndrome Left hand pain and swelling, XR negative Leukocytosis, improving H/o alcohol abuse H/o anxiety H/o GERD H/o hypertension History of Present Illness History of Present Illness Pt seen and examined in the ICU Discussed with RN Pt is laying in bed, calm and cooperative Vitals Vitals Vital Signs Date Time Temp Pulse Resp B/P (MAP) Pulse Ox O2 Delivery O2 Flow Rate FiO2 01/25/18 12:08 98.9 82 24 119/72 (88) Room Air 98.9 01/25/18 12:06 98 2.0 Physical Exam General: Alert, No acute distress Heart: Regular rate, Normal S1, Normal S2, No murmurs Lungs: Clear Abdomen: Normal bowel sounds, Soft, No tenderness Extremities: No clubbing, No cyanosis, Normal pulses, Other (left hand swelling and tenderness) Skin: No rashes, Other (abrasion to left lateral 5th finger) Labs LABS Laboratory Tests Test 01/24/18 16:26 01/24/18 21:03 01/25/18 06:40 01/25/18 08:09 Glucose (Fingerstick) 169 mg/dL (70-99) 138 mg/dL (70-99) 186 mg/dL (70-99) White Blood Count 12.4 x10^3/uL (4.0-11.0) Red Blood Count 3.51 x10^6/uL (4.30-5.70) Hemoglobin 11.4 g/dL (13.0-17.5) Hematocrit 33.5 % (39.0-53.0) Mean Corpuscular Volume 95 fL (79-100) Mean Corpuscular Hemoglobin 33 pg (25-35) Mean Corpuscular Hemoglobin Concent 34 g/dL (31-37) Red Cell Distribution Width 13.7 % (11.5-14.5) Platelet Count 450 x10^3/uL (140-400) Neutrophils (%) (Auto) 76 % (31-73) Lymphocytes (%) (Auto) 13 % (24-48) Monocytes (%) (Auto) 6 % (0-9) Eosinophils (%) (Auto) 5 % (0-3) Basophils (%) (Auto) 1 % (0-3) Neutrophils # (Auto) 9.4 x10^3uL (1.8-7.7) Lymphocytes # (Auto) 1.6 x10^3/uL (1.0-4.8) Monocytes # (Auto) 0.7 x10^3/uL (0.0-1.1) Eosinophils # (Auto) 0.6 x10^3/uL (0.0-0.7) Basophils # (Auto) 0.1 x10^3/uL (0.0-0.2) Sodium Level 140 mmol/L (136-145) Potassium Level 3.9 mmol/L (3.5-5.1) Chloride Level 106 mmol/L (98-107) Carbon Dioxide Level 21 mmol/L (21-32) Anion Gap 13 (6-14) Blood Urea Nitrogen 38 mg/dL (8-26) Creatinine 1.7 mg/dL (0.7-1.3) Estimated GFR (Cockcroft-Gault) 44.2 Glucose Level 182 mg/dL (70-99) Calcium Level 9.5 mg/dL (8.5-10.1) Magnesium Level 1.7 mg/dL (1.8-2.4) Test 01/25/18 11:55 Glucose (Fingerstick) 126 mg/dL (70-99) Review of Systems Review of Systems Pt still c/o left hand pain and swelling, feels it may be a gout flare. Denies any fevers, chills, CP, SOA, or abdominal pain. Assessment and Plan Assessmemt and Plan Problems Medical Problems: (1) Diabetic keto-acidosis Status: Acute (2) Hyperglycemia due to type 2 diabetes mellitus Status: Acute (3) Metabolic acidemia Status: Acute (4) Metabolic encephalopathy Status: Acute Assessment: Acute respiratory failure ETOH intoxication versus dependence, not protecting airway hence intubated at the emergency room LLL pneumonia Sepsis likely secondary to LLL pneumonia Severe agitation, could be secondary to alcohol withdrawal versus sepsis versus others Pancreatitis - hyperglycemia with hypertriglyceridemia Elevated BNP and troponin elevation Obesity BMI 39 - poss obstructive sleep apnea-hypopnea syndrome Left hand pain and swelling, XR negative Leukocytosis, improving H/o alcohol abuse H/o anxiety H/o GERD H/o hypertension Plan: D/c [facility] per pulm Contact precautions for c diff Pt at baseline but severely debilitated, he has been accepted to [facility], d/c to [facility] Comment Review of Relevant I have reviewed the following items franklyn (where applicable) has been applied. Labs Laboratory Tests Test 01/23/18 12:53 01/23/18 18:10 01/23/18 20:44 01/23/18 21:00 Glucose (Fingerstick) 247 mg/dL (70-99) 241 mg/dL (70-99) 224 mg/dL (70-99) Sodium Level 147 mmol/L (136-145) Test 01/23/18 23:59 01/24/18 06:41 01/24/18 07:20 01/24/18 09:40 Glucose (Fingerstick) 210 mg/dL (70-99) 215 mg/dL (70-99) 184 mg/dL (70-99) White Blood Count 18.2 x10^3/uL (4.0-11.0) Red Blood Count 3.65 x10^6/uL (4.30-5.70) Hemoglobin 11.7 g/dL (13.0-17.5) Hematocrit 35.3 % (39.0-53.0) Mean Corpuscular Volume 97 fL (79-100) Mean Corpuscular Hemoglobin 32 pg (25-35) Mean Corpuscular Hemoglobin Concent 33 g/dL (31-37) Red Cell Distribution Width 14.1 % (11.5-14.5) Platelet Count 532 x10^3/uL (140-400) Neutrophils (%) (Auto) 80 % (31-73) Lymphocytes (%) (Auto) 12 % (24-48) Monocytes (%) (Auto) 5 % (0-9) Eosinophils (%) (Auto) 3 % (0-3) Basophils (%) (Auto) 1 % (0-3) Neutrophils # (Auto) 14.4 x10^3uL (1.8-7.7) Lymphocytes # (Auto) 2.1 x10^3/uL (1.0-4.8) Monocytes # (Auto) 0.9 x10^3/uL (0.0-1.1) Eosinophils # (Auto) 0.5 x10^3/uL (0.0-0.7) Basophils # (Auto) 0.2 x10^3/uL (0.0-0.2) Sodium Level 143 mmol/L (136-145) Potassium Level 3.4 mmol/L (3.5-5.1) Chloride Level 110 mmol/L (98-107) Carbon Dioxide Level 19 mmol/L (21-32) Anion Gap 14 (6-14) Blood Urea Nitrogen 48 mg/dL (8-26) Creatinine 1.8 mg/dL (0.7-1.3) Estimated GFR (Cockcroft-Gault) 41.4 Glucose Level 216 mg/dL (70-99) Calcium Level 9.4 mg/dL (8.5-10.1) Phosphorus Level 4.7 mg/dL (2.6-4.7) Magnesium Level 2.0 mg/dL (1.8-2.4) Total Bilirubin 0.5 mg/dL (0.2-1.0) Direct Bilirubin 0.2 mg/dL (0.0-0.2) Aspartate Amino Transf (AST/SGOT) 51 U/L (15-37) Alanine Aminotransferase (ALT/SGPT) 59 U/L (16-63) Alkaline Phosphatase 143 U/L (46-116) Total Protein 7.5 g/dL (6.4-8.2) Albumin 3.0 g/dL (3.4-5.0) Triglycerides Level 256 mg/dL (0-150) Test 01/24/18 12:21 01/24/18 16:26 01/24/18 21:03 01/25/18 06:40 Glucose (Fingerstick) 203 mg/dL (70-99) 169 mg/dL (70-99) 138 mg/dL (70-99) White Blood Count 12.4 x10^3/uL (4.0-11.0) Red Blood Count 3.51 x10^6/uL (4.30-5.70) Hemoglobin 11.4 g/dL (13.0-17.5) Hematocrit 33.5 % (39.0-53.0) Mean Corpuscular Volume 95 fL (79-100) Mean Corpuscular Hemoglobin 33 pg (25-35) Mean Corpuscular Hemoglobin Concent 34 g/dL (31-37) Red Cell Distribution Width 13.7 % (11.5-14.5) Platelet Count 450 x10^3/uL (140-400) Neutrophils (%) (Auto) 76 % (31-73) Lymphocytes (%) (Auto) 13 % (24-48) Monocytes (%) (Auto) 6 % (0-9) Eosinophils (%) (Auto) 5 % (0-3) Basophils (%) (Auto) 1 % (0-3) Neutrophils # (Auto) 9.4 x10^3uL (1.8-7.7) Lymphocytes # (Auto) 1.6 x10^3/uL (1.0-4.8) Monocytes # (Auto) 0.7 x10^3/uL (0.0-1.1) Eosinophils # (Auto) 0.6 x10^3/uL (0.0-0.7) Basophils # (Auto) 0.1 x10^3/uL (0.0-0.2) Sodium Level 140 mmol/L (136-145) Potassium Level 3.9 mmol/L (3.5-5.1) Chloride Level 106 mmol/L (98-107) Carbon Dioxide Level 21 mmol/L (21-32) Anion Gap 13 (6-14) Blood Urea Nitrogen 38 mg/dL (8-26) Creatinine 1.7 mg/dL (0.7-1.3) Estimated GFR (Cockcroft-Gault) 44.2 Glucose Level 182 mg/dL (70-99) Calcium Level 9.5 mg/dL (8.5-10.1) Magnesium Level 1.7 mg/dL (1.8-2.4) Test 01/25/18 08:09 01/25/18 11:55 Glucose (Fingerstick) 186 mg/dL (70-99) 126 mg/dL (70-99) Laboratory Tests Test 01/24/18 16:26 01/24/18 21:03 01/25/18 06:40 01/25/18 08:09 Glucose (Fingerstick) 169 mg/dL (70-99) 138 mg/dL (70-99) 186 mg/dL (70-99) White Blood Count 12.4 x10^3/uL (4.0-11.0) Red Blood Count 3.51 x10^6/uL (4.30-5.70) Hemoglobin 11.4 g/dL (13.0-17.5) Hematocrit 33.5 % (39.0-53.0) Mean Corpuscular Volume 95 fL (79-100) Mean Corpuscular Hemoglobin 33 pg (25-35) Mean Corpuscular Hemoglobin Concent 34 g/dL (31-37) Red Cell Distribution Width 13.7 % (11.5-14.5) Platelet Count 450 x10^3/uL (140-400) Neutrophils (%) (Auto) 76 % (31-73) Lymphocytes (%) (Auto) 13 % (24-48) Monocytes (%) (Auto) 6 % (0-9) Eosinophils (%) (Auto) 5 % (0-3) Basophils (%) (Auto) 1 % (0-3) Neutrophils # (Auto) 9.4 x10^3uL (1.8-7.7) Lymphocytes # (Auto) 1.6 x10^3/uL (1.0-4.8) Monocytes # (Auto) 0.7 x10^3/uL (0.0-1.1) Eosinophils # (Auto) 0.6 x10^3/uL (0.0-0.7) Basophils # (Auto) 0.1 x10^3/uL (0.0-0.2) Sodium Level 140 mmol/L (136-145) Potassium Level 3.9 mmol/L (3.5-5.1) Chloride Level 106 mmol/L (98-107) Carbon Dioxide Level 21 mmol/L (21-32) Anion Gap 13 (6-14) Blood Urea Nitrogen 38 mg/dL (8-26) Creatinine 1.7 mg/dL (0.7-1.3) Estimated GFR (Cockcroft-Gault) 44.2 Glucose Level 182 mg/dL (70-99) Calcium Level 9.5 mg/dL (8.5-10.1) Magnesium Level 1.7 mg/dL (1.8-2.4) Test 01/25/18 11:55 Glucose (Fingerstick) 126 mg/dL (70-99) Microbiology 01/18/18 Blood Culture - Final, Complete NO GROWTH AFTER 5 DAYS 01/13/18 Throat Culture - Final, Complete 01/13/18 - Final, Complete Medications Current Medications Lorazepam (Ativan) 1 mg 1X ONCE IV Last administered on 01/11/18at 12:25; Start 01/11/18 at 12:30; Stop 01/11/18 at 12:31; Status DC Lorazepam (Ativan) 2 mg 1X ONCE IV Last administered on 01/11/18at 13:03; Start 01/11/18 at 12:45; Stop 01/11/18 at 12:46; Status DC Dextrose/Sodium Chloride 1,000 ml @ 0 mls/hr 1X ONCE IV ; Start 01/11/18 at 13:00; Stop 01/11/18 at 13:16; Status DC Sodium Chloride 1,000 ml @ 1,000 mls/hr 1X ONCE IV Last administered on 01/11at 13:41; Start 01/11/18 at 13:30; Stop 01/11/18 at 14:29; Status DC Sodium Chloride 1,000 ml @ 1,000 mls/hr 1X ONCE IV Last administered on 01/11at 13:42; Start 01/11/18 at 13:30; Stop 01/11/18 at 14:29; Status DC Lorazepam (Ativan) 1 mg 1X ONCE IV Last administered on 01/11/18at 15:08; Start 01/11/18 at 13:30; Stop 01/11/18 at 13:31; Status DC Lorazepam (Ativan) 1 mg 1X ONCE IV Last administered on 01/11/18at 13:43; Start 01/11/18 at 13:30; Stop 01/11/18 at 13:33; Status DC Aspirin (Children'S Aspirin) 324 mg 1X ONCE PO Last administered on at 14:02; Start 01/11/18 at 13:45; Stop 01/11/18 at 13:46; Status DC Haloperidol Lactate (Haldol Inj) 5 mg PRN Q6HRS PRN IVP SEVERE AGITATION Last administered on 01/23/18at 19:29; Start 01/11/18 at 16:15 Lorazepam (Ativan) 4 mg PRN Q4HRS PRN IV ANXIETY / AGITATION Last administered on 01/25/18at 12:18; Start 01/11/18 at 16:15 Multivitamins 10 ml/Thiamine HCl 100 mg/Folic Acid 1 mg/Sodium Chloride 1,011.2 ml @ 125 mls/ hr DAILY IV Last administered on 01/14/18at 08:19; Start at 17:00; Stop 01/14/18 at 21:59; Status DC Dexmedetomidine HCl 200 mcg/ Sodium Chloride 50 ml @ 0 mls/hr CONT PRN IV PER PROTOCOL Last administered on 01/11/18at 17:00; Start 01/11/18 at 16:45; Stop 01/11/18 at 18:38; Status DC Sodium Chloride 500 ml @ 500 mls/hr 1X PRN PRN IV SEE COMMENTS; Start at 16:45 Atropine Sulfate (ATROPINE 0.5mg SYRINGE) 0.5 mg PRN Q5MIN PRN IV SEE COMMENTS ; Start 01/11/18 at 16:45 Lorazepam (Ativan) 4 mg PRN Q1HR PRN PO For CIWA 8-14 Last administered on at 21:07; Start 01/11/18 at 18:15 Lorazepam (Ativan) 8 mg PRN Q1HR PRN PO For CIWA 15 or greater; Start at 18:15 Lorazepam (Ativan) 2 mg PRN Q1HR PRN IV For CIWA 8-14 Last administered on at 20:52; Start 01/11/18 at 18:15 Lorazepam (Ativan) 4 mg PRN Q1HR PRN IV For CIWA 15 or greater Last administered on 01/23/18at 17:23; Start 01/11/18 at 18:15 Diphenhydramine HCl (Benadryl) 25 mg PRN Q15MIN PRN IVP EPS symptoms 2'Haldol admin; Start 01/11/18 at 18:15 Olanzapine (ZyPREXA IM) 10 mg 1X ONCE IM Last administered on 01/11/18at 18:42 ; Start 01/11/18 at 18:45; Stop 01/11/18 at 18:46; Status DC Dexmedetomidine HCl 200 mcg/ Sodium Chloride 50 ml @ 7 mls/hr CONT PRN IV PER PROTOCOL; Start 01/11/18 at 18:38; Stop 01/11/18 at 21:19; Status DC Propofol 100 ml @ As Directed STK-MED ONCE IV ; Start 01/11/18 at 18:43; Stop 01/11/18 at 18:44; Status DC Succinylcholine Chloride (Anectine) 200 mg STK-MED ONCE .ROUTE ; Start at 18:44; Stop 01/11/18 at 18:45; Status DC Fentanyl Citrate 30 ml @ 2.5 mls/hr CONT PRN IV PER PROTOCOL Last administered on 01/22/18at 04:09; Start 01/11/18 at 19:00; Stop 01/24/18 at 15 :03; Status DC Propofol 100 ml @ 4.2 mls/hr CONT PRN IV PER PROTOCOL; Start 01/11/18 at 18: 45; Status Cancel Fentanyl Citrate (Fentanyl 2ml Vial) 25 mcg PRN Q1HR PRN IV SEE COMMENTS.; Start 01/11/18 at 18:45; Stop 01/21/18 at 08:42; Status DC Fentanyl Citrate (Fentanyl 2ml Vial) 50 mcg PRN Q1HR PRN IV SEE COMMENTS. Last administered on 01/11/18at 20:21; Start 01/11/18 at 18:45; Stop 01/21/18 at 08 :42; Status DC Morphine Sulfate (Morphine Sulfate) 2 mg PRN Q1HR PRN IV SEE COMMENTS. Last administered on 01/23/18at 16:25; Start 01/11/18 at 18:45 Morphine Sulfate (Morphine Sulfate) 4 mg PRN Q1HR PRN IV SEE COMMENTS. Last administered on 01/25/18at 11:18; Start 01/11/18 at 18:45 Hydromorphone HCl (Dilaudid) 0.2 mg PRN Q1HR PRN IV SEE COMMENTS.; Start 01/11 at 18:45; Stop 01/21/18 at 14:40; Status DC Hydromorphone HCl (Dilaudid) 0.4 mg PRN Q1HR PRN IV SEE COMMENTS.; Start 01/11 at 18:45; Stop 01/21/18 at 14:41; Status DC Morphine Sulfate (Morphine Sulfate) 2 mg PRN Q1HR PRN IV ; Start 01/11/18 at 18:45; Status UNV Morphine Sulfate (Morphine Sulfate) 4 mg PRN Q1HR PRN IV ; Start 01/11/18 at 18:45; Status UNV Midazolam HCl 100 ml @ 1 mls/hr CONT PRN IV PER PROTOCOL Last administered on 01/16/18at 04:52; Start 01/11/18 at 18:45; Stop 01/16/18 at 09:52; Status DC Epinephrine HCl (EPINEPHrine SYRINGE) 1 mg STK-MED ONCE .ROUTE ; Start at 18:56; Stop 01/11/18 at 18:57; Status DC Propofol 100 ml @ 2.103 mls/ hr CONT PRN IV SEE I/O RECORD Last administered on 01/11/18at 20:23; Start 01/11/18 at 19:00; Stop 01/24/18 at 15:03; Status DC Vecuronium Hartshorn (Norcuron Bolus) 10 mg STK-MED ONCE IV ; Start 01/11/18 at 19:02; Stop 01/11/18 at 19:03; Status DC Vancomycin HCl (Vanco Per Pharmacy) 1 each PRN DAILY PRN MC SEE COMMENTS Last administered on 01/12/18at 11:47; Start 01/11/18 at 20:15; Stop 01/12/18 at 13 :14; Status DC Piperacillin Sod/ Tazobactam Sod (Zosyn Per Pharmacy) 1 each PRN DAILY PRN MC SEE COMMENTS; Start 01/11/18 at 20:15; Stop 01/13/18 at 08:00; Status DC Piperacillin Sod/ Tazobactam Sod 4.5 gm/Sodium Chloride 100 ml @ 200 mls/hr Q6HRS IV Last administered on 01/13/18at 06:48; Start 01/12/18 at 00:00; Stop 01/13/18 at 07:57; Status DC Vancomycin HCl 2 gm/Sodium Chloride 500 ml @ 250 mls/hr 1X ONCE IV Last administered on 01/11/18at 21:00; Start 01/11/18 at 21:00; Stop 01/11/18 at 22 :59; Status DC Insulin Human Lispro (HumaLOG) 0-7 UNITS Q6HRS SQ Last administered on at 05:56; Start 01/12/18 at 00:00; Stop 01/23/18 at 09:00; Status DC Dextrose (Dextrose 50%-Water Syringe) 12.5 gm PRN Q15MIN PRN IV SEE COMMENTS; Start 01/11/18 at 21:00 Sodium Chloride 1,000 ml @ 100 mls/hr Q10H IV Last administered on 01/16/18at 03:59; Start 01/11/18 at 21:00; Stop 01/16/18 at 09:47; Status DC Dexmedetomidine HCl 200 mcg/ Sodium Chloride 50 ml @ 0 mls/hr CONT PRN IV PER PROTOCOL Last administered on 01/22/18at 11:48; Start 01/11/18 at 21:00; Stop 01/24/18 at 15:03; Status DC Acetaminophen (Tylenol) 650 mg PRN Q6HRS PRN PEG MILD PAIN / TEMP Last administered on 01/21/18at 14:39; Start 01/11/18 at 21:30 Magnesium Sulfate 50 ml @ 25 mls/hr 1X ONCE IV Last administered on at 01:27; Start 01/12/18 at 01:00; Stop 01/12/18 at 02:59; Status DC Sodium Chloride 1,000 ml @ 1,000 mls/hr 1X ONCE IV Last administered on 01/12at 01:00; Start 01/12/18 at 04:30; Stop 01/12/18 at 05:29; Status DC Vancomycin HCl 1.5 gm/Sodium Chloride 500 ml @ 250 mls/hr Q12H IV Last administered on 01/12/18at 08:44; Start 01/12/18 at 09:00; Stop 01/12/18 at 13 :14; Status DC Vancomycin HCl (Vancomycin Trough Level) 1 each 1X ONCE MC ; Start 01/12/18 at 20:30; Stop 01/12/18 at 20:30; Status DC Sodium Chloride 500 ml @ 500 mls/hr 1X ONCE IV Last administered on at 07:26; Start 01/12/18 at 07:00; Stop 01/12/18 at 07:59; Status DC Famotidine (Pepcid Vial) 20 mg BID IVP Last administered on 01/13/18at 20:49; Start 01/12/18 at 09:00; Stop 01/14/18 at 09:40; Status DC Albuterol/ Ipratropium (Duoneb) 3 ml RTQID NEB Last administered on 01/25/18at 11:49; Start 01/12/18 at 08:00 Heparin Sodium (Porcine) (Heparin Sodium) 5,000 unit Q8HRS SQ Last administered on 01/25/18at 06:36; Start 01/12/18 at 14:00 Gemfibrozil (Lopid) 600 mg BIDBFRMEAL PO Last administered on 01/25/18at 06:34 ; Start 01/12/18 at 10:00 Linezolid/Dextrose 300 ml @ 300 mls/hr Q12HR IV Last administered on at 08:39; Start 01/12/18 at 21:00; Stop 01/15/18 at 12:06; Status DC Vecuronium Hartshorn (Norcuron Bolus) 10 mg STK-MED ONCE IV ; Start 01/11/18 at 19:00; Stop 01/13/18 at 07:59; Status DC Succinylcholine Chloride (Anectine) 200 mg STK-MED ONCE .ROUTE ; Start at 19:00; Stop 01/13/18 at 07:59; Status DC Propofol (Diprivan) 1,000 mg STK-MED ONCE IV ; Start 01/11/18 at 19:00; Stop 01/13/18 at 07:59; Status DC Epinephrine HCl (EPINEPHrine SYRINGE) 1 mg STK-MED ONCE .ROUTE ; Start at 19:00; Stop 01/13/18 at 07:59; Status DC Piperacillin Sod/ Tazobactam Sod 2.25 gm/Sodium Chloride 50 ml @ 100 mls/hr Q8HRS IV Last administered on 01/16/18at 05:59; Start 01/13/18 at 14:00; Stop 01/16/18 at 07:31; Status DC Doxycycline Hyclate 100 mg/ Dextrose 100 ml @ 50 mls/hr Q12HR IV Last administered on 01/20/18at 21:30; Start 01/13/18 at 09:00; Stop 01/21/18 at 07 :51; Status DC Sodium Bicarbonate (Sodium Bicarb Adult 8.4% Syr) 100 meq 1X ONCE IV Last administered on 01/13/18at 09:12; Start 01/13/18 at 09:15; Stop 01/13/18 at 09 :16; Status DC Sodium Chloride 1,000 ml @ 1,000 mls/hr Q1H IV ; Start 01/13/18 at 12:30; Status Cancel Sodium Chloride 1,000 ml @ 1,000 mls/hr 1X ONCE IV Last administered on 01/13at 12:15; Start 01/13/18 at 12:15; Stop 01/13/18 at 13:14; Status DC Vecuronium Hartshorn (Norcuron Bolus) 6 mg PRN Q6HRS PRN IV VENT ASYNCHRONY Last administered on 01/15/18at 10:23; Start 01/13/18 at 12:30; Stop 01/15/18 at 14 :51; Status DC Info (Tpn Per Pharmacy) 1 each PRN DAILY PRN MC SEE COMMENTS Last administered on 01/24/18at 12:28; Start 01/14/18 at 09:45; Stop 01/24/18 at 12:32; Status DC Famotidine (Pepcid Vial) 20 mg DAILY IVP Last administered on 01/21/18at 08:46 ; Start 01/15/18 at 09:00; Stop 01/21/18 at 13:58; Status DC Sodium Bicarbonate (Sodium Bicarb Adult 8.4% Syr) 50 meq STK-MED ONCE .ROUTE ; Start 01/14/18 at 11:12; Stop 01/14/18 at 11:13; Status DC Labetalol HCl (Normodyne Iv Push) 10 mg PRN Q4HRS PRN IVP HYPERTENSION, SEE COMMENTS Last administered on 01/17/18at 10:39; Start 01/14/18 at 11:30; Stop 01/21/18 at 01:57; Status DC Sodium Bicarbonate (Sodium Bicarb Adult 8.4% Syr) 100 meq 1X ONCE IV Last administered on 01/14/18at 11:34; Start 01/14/18 at 11:30; Stop 01/14/18 at 11 :31; Status DC Sodium Chloride 45 meq/Sodium Acetate 45 meq/ Potassium Chloride 30 meq/ Potassium Phosphate 6.8 mmol/Magnesium Sulfate 10 meq/ Calcium Gluconate 10 meq / Multivitamins 10 ml/Chromium/ Copper/Manganese/ Seleni/Zn 1 ml/ Thiamine HCl 100 mg/Folic Acid 1 mg/Total Julieta... 1,512 ml @ 63 mls/hr TPN CONT IV Last administered on 01/14/18at 21:37; Start 01/14/18 at 22:00; Stop 01/15/18 at 21:59; Status DC Labetalol HCl (Normodyne Iv Push) 20 mg PRN Q2HR PRN IVP HYPERTENSION, SEE COMMENTS Last administered on 01/22/18at 19:52; Start 01/14/18 at 15:30 Multivitamins 10 ml/Thiamine HCl 100 mg/Folic Acid 1 mg/Sodium Chloride 1,011.2 ml @ 1,000.088 mls/hr 1X ONCE IV ; Start 01/15/18 at 08:15; Stop 01/15/18 at 09:15; Status UNV Sodium Chloride 1,000 ml @ 1,000 mls/hr Q1H PRN IV hypotension; Start at 09:06; Stop 01/15/18 at 09:32; Status DC Albumin Human 200 ml @ 200 mls/hr 1X ONCE IV ; Start 01/15/18 at 09:15; Stop 01/15/18 at 09:32; Status DC Acetaminophen (Tylenol) 500 mg 1X PRN PRN PO MILD PAIN / TEMP; Start 01/15/18 at 09:15; Stop 01/15/18 at 09:32; Status DC Diphenhydramine HCl (Benadryl) 25 mg 1X PRN PRN IV ITCHING; Start 01/15/18 at 09:15; Stop 01/15/18 at 09:32; Status DC Pharmacy Consult (C.diff Med Screen By Rx) 1 each PRN 1X PRN MC SEE COMMENTS; Start 01/15/18 at 09:30; Status Cancel Sodium Chloride 1,000 ml @ 400 mls/hr Q2H30M PRN IV PATENCY; Start 01/15/18 at 09:06; Stop 01/15/18 at 09:32; Status DC Info (PHARMACY MONITORING -- do not chart) 1 each PRN DAILY PRN MC SEE COMMENTS ; Start 01/15/18 at 09:15; Stop 01/21/18 at 14:04; Status DC Sodium Acetate 75 meq/Potassium Chloride 30 meq/ Potassium Phosphate 6.8 mmol/ Magnesium Sulfate 13 meq/ Calcium Gluconate 10 meq/ Multivitamins 10 ml/Chromium / Copper/Manganese/ Seleni/Zn 1 ml/ Thiamine HCl 100 mg/Folic Acid 1 mg/Total Parenteral Nutrition/Amino Acids/Dextro... 1,492 ml @ 62.167 mls/ hr TPN CONT IV ; Start 01/15/18 at 22:00; Stop 01/15/18 at 22:00; Status DC Sodium Acetate 75 meq/Potassium Chloride 30 meq/ Potassium Phosphate 6.8 mmol/ Magnesium Sulfate 13 meq/ Calcium Gluconate 10 meq/ Multivitamins 10 ml/Chromium / Copper/Manganese/ Seleni/Zn 1 ml/ Thiamine HCl 100 mg/Folic Acid 1 mg/Total Parenteral Nutrition/Amino Acids/Dextro... 1,512 ml @ 63 mls/hr TPN CONT IV Last administered on 01/15/18at 22:07; Start 01/15/18 at 22:00; Stop 01/16/18 at 21:59; Status DC Vecuronium Hartshorn (Norcuron Bolus) 6 mg PRN Q4HRS PRN IV VENT ASYNCHRONY Last administered on 01/21/18at 02:08; Start 01/15/18 at 15:00; Stop 01/24/18 at 15 :03; Status DC Meropenem 500 mg/ Sodium Chloride 50 ml @ 100 mls/hr Q12HR IV Last administered on 01/21/18at 08:46; Start 01/16/18 at 08:00; Stop 01/21/18 at 14 :03; Status DC Metronidazole 100 ml @ 100 mls/hr Q8HRS IV Last administered on 01/21/18at 14: 42; Start 01/16/18 at 08:00; Stop 01/21/18 at 16:23; Status DC Chlorhexidine Gluconate (Peridex) 15 ml BID MM ; Start 01/16/18 at 21:00; Status Cancel Dextrose/Sodium Chloride 1,000 ml @ 50 mls/hr Q20H IV ; Start 01/16/18 at 10: 00; Stop 01/17/18 at 13:11; Status DC Lorazepam 100 mg/ Sodium Chloride 100 ml @ 2 mls/hr CONT PRN IV SEE PROTOCOL Last administered on 01/21/18at 02:22; Start 01/16/18 at 09:45; Stop 01/24/18 at 15:03; Status DC Potassium Acetate 30 meq/Potassium Phosphate 3.4 mmol/Magnesium Sulfate 15 meq/ Calcium Gluconate 10 meq/ Multivitamins 10 ml/Chromium/ Copper/Manganese/ Seleni /Zn 1 ml/ Thiamine HCl 100 mg/Folic Acid 1 mg/Total Parenteral Nutrition/Amino Acids/Dextrose 1,512 ml @ 63 mls/hr TPN CONT IV Last administered on at 21:52; Start 01/16/18 at 22:00; Stop 01/17/18 at 21:59; Status DC Hydralazine HCl (Apresoline Inj) 20 mg PRN TID PRN IVP SBP>160 2ND CHOICE Last administered on 01/22/18at 16:31; Start 01/16/18 at 15:30 Nicardipine HCl 50 mg/Sodium Chloride 270 ml @ 27 mls/hr CONT PRN IV SEE I/O RECORD Last administered on 01/24/18at 02:33; Start 01/16/18 at 16:30 Dextrose 500 ml @ 500 mls/hr 1X ONCE IV ; Start 01/17/18 at 07:30; Stop at 10:53; Status DC Insulin Glargine (Lantus) 10 units QHS SQ ; Start 01/17/18 at 21:00; Status Cancel Insulin Glargine (Lantus) 10 units DAILY10 SQ Last administered on 01/18/18at 11:12; Start 01/17/18 at 10:00; Stop 01/18/18 at 16:41; Status DC Dextrose 1,000 ml @ 75 mls/hr [id number] IV Last administered on 01/20/18at 04:25 ; Start 01/17/18 at 11:00; Stop 01/20/18 at 15:40; Status DC Potassium Acetate 30 meq/Potassium Phosphate 3.4 mmol/Magnesium Sulfate 18 meq/ Calcium Gluconate 10 meq/ Multivitamins 10 ml/Chromium/ Copper/Manganese/ Seleni /Zn 1 ml/ Thiamine HCl 100 mg/Folic Acid 1 mg/Total Parenteral Nutrition/Amino Acids/Dextrose 1,728 ml @ 72 mls/hr TPN CONT IV Last administered on at 21:25; Start 01/17/18 at 22:00; Stop 01/18/18 at 21:59; Status DC Vecuronium [place]orn 100 mg/ Dextrose 100 ml @ 7.89 mls/hr CONT PRN IV SEE I/O RECORD; Start 01/17/18 at 19:45; Status Cancel Vecuronium Hart[place]orn 100 mg/ Miscellaneous 100 ml @ 7.89 mls/hr CONT PRN IV SEE I/O RECORD Last administered on 01/18/18at 22:55; Start 01/17/18 at 19:45; Stop 01/24/18 at 15:03; Status DC Insulin Human Lispro (HumaLOG) 10 units 1X ONCE SQ ; Start 01/18/18 at 06:30; Stop 01/18/18 at 06:31; Status DC Insulin Human Lispro (HumaLOG) 8 units Q4HRS SQ Last administered on at 12:28; Start 01/18/18 at 08:30; Stop 01/18/18 at 16:32; Status DC Magnesium Sulfate 50 ml @ 25 mls/hr PRN DAILY PRN IV for mag < 1.7 on am labs Last administered on 01/18/18at 11:44; Start 01/18/18 at 11:00 Desmopressin Acetate (Ddavp) 4 mcg BID SQ Last administered on 01/18/18at 21:38 ; Start 01/18/18 at 11:30; Stop 01/18/18 at 21:01; Status DC Magnesium Sulfate/ Dextrose 100 ml @ 100 mls/hr 1X ONCE IV Last administered on 01/18/18at 11:49; Start 01/18/18 at 11:30; Stop 01/18/18 at 12:29; Status DC Potassium Acetate 30 meq/Magnesium Sulfate 25 meq/ Calcium Gluconate 10 meq/ Multivitamins 10 ml/Chromium/ Copper/Manganese/ Seleni/Zn 1 ml/ Thiamine HCl 100 mg/Folic Acid 1 mg/Total Parenteral Nutrition/Amino Acids/Dextrose/ Fat Emulsion Intravenous 3,000 ml @ 125 mls/hr TPN CONT IV Last administered on 01/18/18at 21:50; Start 01/18/18 at 22:00; Stop 01/19/18 at 21:59; Status DC Daptomycin 780 mg/ Sodium Chloride 50 ml @ 100 mls/hr Q48H IV Last administered on 01/20/18at 14:25; Start 01/18/18 at 15:30; Stop 01/21/18 at 07 :51; Status DC Insulin Human Regular 150 unit/ Sodium Chloride 151.5 ml @ 0 mls/hr CONT PRN IV SEE I/O RECORD Last administered on 01/21/18at 15:43; Start 01/18/18 at 16: 30 Dextrose (Dextrose 50%-Water Syringe) 12.5 gm PRN Q15MIN PRN IV LOW BLOOD SUGAR ; Start 01/18/18 at 16:30; Status UNV Norepinephrine Bitartrate 250 ml @ 1.875 mls/ hr CONT PRN IV SEE I/O RECORD; Start 01/18/18 at 16:30; Stop 01/24/18 at 15:03; Status DC Desmopressin Acetate (Ddavp) 6 mcg BID SQ Last administered on 01/20/18at 21:00 ; Start 01/19/18 at 12:30; Stop 01/21/18 at 10:41; Status DC Info (Icu Electrolyte Protocol) 1 ea CONT PRN PRN MC PER PROTOCOL; Start 01/19 at 12:30 Potassium Acetate 60 meq/Magnesium Sulfate 25 meq/ Calcium Gluconate 10 meq/ Multivitamins 10 ml/Chromium/ Copper/Manganese/ Seleni/Zn 1 ml/ Thiamine HCl 100 mg/Folic Acid 1 mg/Total Parenteral Nutrition/Amino Acids/Dextrose/ Fat Emulsion Intravenous 3,000 ml @ 125 mls/hr TPN CONT IV Last administered on 01/19/18at 21:58; Start 01/19/18 at 22:00; Stop 01/20/18 at 21:59; Status DC Potassium Chloride/Water 50 ml @ 50 mls/hr Q1H IV Last administered on at 19:24; Start 01/19/18 at 18:00; Stop 01/19/18 at 19:59; Status DC Potassium Chloride/Water 50 ml @ 50 mls/hr Q1H IV ; Start 01/19/18 at 17:15; Stop 01/19/18 at 21:14; Status UNV Potassium Chloride/Water 50 ml @ 50 mls/hr Q1HR IV ; Start 01/19/18 at 18:00; Stop 01/19/18 at 23:59; Status UNV Lidocaine/Sodium Bicarbonate (Buffered Lidocaine 1%) 6 ml 1X ONCE INJ ; Start 01/20/18 at 07:45; Stop 01/20/18 at 07:47; Status DC Potassium Acetate 60 meq/Magnesium Sulfate 25 meq/ Calcium Gluconate 10 meq/ Multivitamins 10 ml/Chromium/ Copper/Manganese/ Seleni/Zn 1 ml/ Thiamine HCl 100 mg/Folic Acid 1 mg/Total Parenteral Nutrition/Amino Acids/Dextrose 3,000 ml @ 125 mls/hr TPN CONT IV Last administered on 01/20/18at 21:54; Start at 22:00; Stop 01/21/18 at 21:59; Status DC Sodium Chloride 1,000 ml @ 75 mls/hr [id number] IV Last administered on at 08:46; Start 01/20/18 at 15:45; Stop 01/21/18 at 10:41; Status DC Dextrose 1,000 ml @ 75 mls/hr [id number] IV Last administered on 01/25/18at 08:05 ; Start 01/21/18 at 10:45 Desmopressin Acetate 6 mcg/ Sodium Chloride 51.5 ml @ 102 mls/hr 1X ONCE IV Last administered on 01/21/18at 11:00; Start 01/21/18 at 11:00; Stop 01/21/18 at 11:30; Status DC Potassium Acetate 60 meq/Magnesium Sulfate 25 meq/ Calcium Gluconate 10 meq/ Multivitamins 10 ml/Chromium/ Copper/Manganese/ Seleni/Zn 1 ml/ Thiamine HCl 100 mg/Folic Acid 1 mg/Total Parenteral Nutrition/Amino Acids/Dextrose/ Fat Emulsion Intravenous 3,000 ml @ 125 mls/hr TPN CONT IV ; Start 01/21/18 at 22 :00; Stop 01/21/18 at 22:00; Status DC Tramadol HCl (Ultram) 50 mg DAILY PRN PO MILD PAIN Last administered on at 10:12; Start 01/21/18 at 12:00 Venlafaxine HCl (Effexor) 50 mg BID PO Last administered on 01/25/18at 09:39; Start 01/21/18 at 14:00 Amlodipine Besylate (Norvasc) 10 mg DAILY PO Last administered on 01/25/18at 09 :40; Start 01/21/18 at 14:00 Ibuprofen (Motrin) 400 mg PRN Q6HRS PRN PO INFLAMMATION; Start 01/21/18 at 13: 45 Losartan Potassium (Cozaar) 25 mg DAILY PO Last administered on 01/25/18at 09: 42; Start 01/21/18 at 14:00 Neomycin/ Polymyxin/ Dexamethasone (Maxitrol) 1 drop QID OD Last administered on 01/25/18at 09:39; Start 01/21/18 at 17:00 Pantoprazole Sodium (Protonix) 40 mg DAILYAC PO Last administered on at 06:34; Start 01/22/18 at 07:30 Magnesium Oxide (Magnesium Oxide) 400 mg DAILY PO Last administered on at 09:41; Start 01/22/18 at 09:00 Multivitamins (Thera M Plus) 1 tab DAILY PO Last administered on 01/25/18at 09: 41; Start 01/22/18 at 09:00 Non-Formulary Medication (Nebivolol Hcl (Bystolic)) 20 mg DAILY PO ; Start at 09:00; Status UNV Metoprolol Tartrate (Lopressor) 50 mg BID PO Last administered on 01/25/18at 09 :41; Start 01/21/18 at 14:00 Tizanidine HCl (Zanaflex) 4 mg TID PO Last administered on 01/25/18at 09:42; Start 01/21/18 at 14:00 Meropenem 500 mg/ Sodium Chloride 50 ml @ 100 mls/hr Q8HRS IV ; Start at 14:30; Stop 01/21/18 at 16:22; Status DC Vancomycin HCl (Vancomycin Oral Solution) 125 mg [id number] PO Last administered on 01/25/18at 09:43; Start 01/21/18 at 17:00 Potassium Acetate 60 meq/Magnesium Sulfate 25 meq/ Calcium Gluconate 10 meq/ Multivitamins 10 ml/Chromium/ Copper/Manganese/ Seleni/Zn 1 ml/ Thiamine HCl 100 mg/Folic Acid 1 mg/Total Parenteral Nutrition/Amino Acids/Dextrose 3,000 ml @ 125 mls/hr TPN CONT IV Last administered on 01/21/18at 22:22; Start at 22:00; Stop 01/22/18 at 22:00; Status DC Potassium Acetate 60 meq/Magnesium Sulfate 15 meq/ Calcium Gluconate 10 meq/ Multivitamins 10 ml/Chromium/ Copper/Manganese/ Seleni/Zn 1 ml/ Thiamine HCl 100 mg/Folic Acid 1 mg/Total Parenteral Nutrition/Amino Acids/Dextrose 3,000 ml @ 125 mls/hr TPN CONT IV Last administered on 01/22/18at 22:23; Start at 22:00; Stop 01/23/18 at 21:59; Status DC Metronidazole 100 ml @ 100 mls/hr Q8HRS IV Last administered on 01/23/18at 15: 12; Start 01/22/18 at 22:00; Stop 01/23/18 at 22:06; Status DC Clonidine HCl (Catapres Tts-1) 1 patch WEEKLY TD Last administered on at 20:52; Start 01/22/18 at 21:00 Enalaprilat (Vasotec Inj) 1.25 mg Q6HRS IVP ; Start 01/22/18 at 21:00; Stop at 16:39; Status DC Insulin Glargine (Lantus) 20 units BID SQ Last administered on 01/25/18at 09:50 ; Start 01/23/18 at 09:00 Insulin Human Lispro (HumaLOG) 0-9 UNITS Q6HRS SQ Last administered on at 12:24; Start 01/23/18 at 09:00; Stop 01/24/18 at 15:06; Status DC Desmopressin Acetate 6 mcg/ Sodium Chloride 51.5 ml @ 102 mls/hr BID IV Last administered on 01/25/18at 11:08; Start 01/23/18 at 11:00 Potassium Chloride/Water 50 ml @ 50 mls/hr 1X ONCE IV Last administered on at 11:57; Start 01/23/18 at 11:00; Stop 01/23/18 at 11:59; Status DC Potassium Acetate 60 meq/Magnesium Sulfate 15 meq/ Calcium Gluconate 10 meq/ Multivitamins 10 ml/Chromium/ Copper/Manganese/ Seleni/Zn 1 ml/ Thiamine HCl 100 mg/Folic Acid 1 mg/Total Parenteral Nutrition/Amino Acids/Dextrose 3,000 ml @ 125 mls/hr TPN CONT IV Last administered on 01/23/18at 22:14; Start at 22:00; Stop 01/24/18 at 12:27; Status DC Pantoprazole Sodium (Protonix) 40 mg 1X ONCE PO Last administered on at 19:29; Start 01/23/18 at 19:15; Stop 01/23/18 at 19:16; Status DC Acetaminophen/ Hydrocodone Bitart (Lortab 5/325) 1 tab PRN Q4HRS PRN PO MODERATE PAIN Last administered on 01/24/18at 11:37; Start 01/24/18 at 11:30 Potassium Acetate 80 meq/Magnesium Sulfate 15 meq/ Calcium Gluconate 10 meq/ Multivitamins 10 ml/Chromium/ Copper/Manganese/ Seleni/Zn 1 ml/ Thiamine HCl 100 mg/Folic Acid 1 mg/Total Parenteral Nutrition/Amino Acids/Dextrose/ Fat Emulsion Intravenous 3,000 ml @ 125 mls/hr TPN CONT IV ; Start 01/24/18 at 22 :00; Stop 01/24/18 at 22:00; Status DC Acetaminophen/ Hydrocodone Bitart (Lortab 5/325) 2 tab PRN Q4HRS PRN PO MODERATE PAIN Last administered on 01/25/18at 09:12; Start 01/24/18 at 14:30 Insulin Human Lispro (HumaLOG) 0-9 UNITS TIDACHC SQ Last administered on at 09:51; Start 01/24/18 at 16:30 Enalaprilat (Vasotec Inj) 1.25 mg PRN Q6HRS PRN IVP HYPERTENSION, SEE COMMENTS ; Start 01/24/18 at 16:45 Lactobacillus Rhamnosus (Culturelle) 1 cap BID PO ; Start 01/25/18 at 21:00 Active Scripts Active Reported [hemp botanicals] Maxitrol Eye Drops (Brandon/Polymyx B Sulf/Dexameth) 5 Ml Drops.susp 1 Drop OD QID Multivitamins (Multivitamin) 1 Each Tablet 1 Tab PO DAILY Magnesium (Magnesium Oxide) 400 Mg Capsule 1 Cap PO DAILY Lansoprazole 30 Mg Capsule.dr 1 Cap PO DAILY Losartan Potassium 25 Mg Tablet 25 Mg PO DAILY Tizanidine Hcl 4 Mg Tablet 1 Tab PO TID Tramadol Hcl 50 Mg Tablet 50 Mg PO DAILY PRN Bystolic (Nebivolol Hcl) 20 Mg Tablet 20 Mg PO DAILY Cymbalta (Duloxetine Hcl) 20 Mg Capsule.dr 1 Cap PO DAILY Valacyclovir (Valacyclovir Hcl) 1,000 Mg Tablet 1 Tab PO DAILY Ibuprofen 400 Mg Tablet 400 Mg PO PRN Q6HRS PRN Bystolic (Nebivolol) 10 Mg Tablet 20 Mg PO DAILY Amlodipine Besylate 10 Mg Tablet 10 Mg PO DAILY Vitals/I & O Vital Sign - Last 24 Hours 01/24/18 01/24/18 01/24/18 01/24/18 12:40 15:37 16:00 16:02 Temp 98.9 98.9 Pulse 90 Resp 22 B/P (MAP) 143/94 (110) Pulse Ox 97 98 O2 Delivery Room Air Room Air Room Air Room Air 01/24/18 01/24/18 01/24/18 01/24/18 19:31 19:39 20:00 20:00 Temp 98.9 98.9 Pulse 90 Resp 20 B/P (MAP) 143/94 (110) Pulse Ox 98 98 O2 Delivery Room Air Room Air Room Air O2 Flow Rate 2.0 01/24/18 01/25/18 01/25/18 01/25/18 21:08 00:50 04:00 04:17 Temp 98.0 98.0 Pulse 90 86 78 Resp 20 22 B/P (MAP) 143/94 148/78 (101) 144/78 (100) Pulse Ox 95 95 95 O2 Delivery Room Air Room Air Room Air 01/25/18 01/25/18 01/25/18 01/25/18 05:21 08:00 08:15 09:12 Temp 97.6 97.6 Pulse 102 Resp 18 17 B/P (MAP) 199/90 (126) Pulse Ox 95 O2 Delivery Room Air Room Air Room Air O2 Flow Rate 2.0 01/25/18 01/25/18 01/25/18 01/25/18 09:19 09:40 09:41 09:42 Pulse 78 78 78 B/P (MAP) 144/78 144/78 144/78 Pulse Ox 98 O2 Delivery Room Air 01/25/18 01/25/18 01/25/18 01/25/18 10:02 10:12 11:18 11:23 Pulse Ox 98 98 O2 Delivery Room Air Room Air Room Air Room Air O2 Flow Rate 2.0 2.0 01/25/18 01/25/18 01/25/18 11:51 12:06 12:08 Temp 98.9 98.9 Pulse 82 Resp 24 B/P (MAP) 119/72 (88) Pulse Ox 98 98 O2 Delivery Room Air Room Air Room Air O2 Flow Rate 2.0 Intake and Output 01/24/18 01/24/18 01/25/18 15:00 23:00 07:00 Intake Total 1517.27 ml 1932.63 ml 390 ml Output Total 850 ml 2050 ml 1300 ml Balance 667.27 ml -117.37 ml -910 ml DREA SORENSON III DO Jan 25, 2018 12:30
[2018-01-25] MEDS ORDERED: LACTOBACILLUS RHAMNOSUS GG 1 CAPSULE. PO SCH (21:00)
== END 2018-01-25 14:30 | DRG 870 ==
LOC: ER 11:33 → 1 WEST ICU 13:42
PROVIDERS: ADMIT Internal Medicine; ATTEND Internal Medicine
PROC: 5A1955Z Respiratory Ventilation, Greater than 96 Consecutive Hours (ICD-10-PCS; principal; 2018-01-11)
PROC: 0BH17EZ Insertion of Endotracheal Airway into Trachea, Via Natural or Artificial Opening (ICD-10-PCS; 2018-01-11)
PROC: 02HV33Z Insertion of Infusion Device into Superior Vena Cava, Percutaneous Approach (ICD-10-PCS; 2018-01-13)
PROC: B548ZZA Ultrasonography of Superior Vena Cava, Guidance (ICD-10-PCS; 2018-01-13)
DX: A41.9 Sepsis, unspecified organism (principal); E11.10 Type 2 diabetes mellitus with ketoacidosis without coma; G93.41 Metabolic encephalopathy; I50.31 Acute diastolic (congestive) heart failure; J69.0 Pneumonitis due to inhalation of food and vomit; J96.00 Acute respiratory failure, unspecified whether with hypoxia or hypercapnia; K85.90 Acute pancreatitis without necrosis or infection, unspecified; N17.0 Acute kidney failure with tubular necrosis; E87.0 Hyperosmolality and hypernatremia; F10.239 Alcohol dependence with withdrawal, unspecified; J98.11 Atelectasis; N25.1 Nephrogenic diabetes insipidus; B95.8 Unspecified staphylococcus as the cause of diseases classified elsewhere; E66.01 Morbid (severe) obesity due to excess calories; E78.1 Pure hyperglyceridemia; E78.5 Hyperlipidemia, unspecified; E87.6 Hypokalemia; F32.9 Major depressive disorder, single episode, unspecified; F41.9 Anxiety disorder, unspecified; F91.9 Conduct disorder, unspecified; G47.33 Obstructive sleep apnea (adult) (pediatric); G89.29 Other chronic pain; I11.0 Hypertensive heart disease with heart failure; I71.2 Thoracic aortic aneurysm, without rupture; K21.9 Gastro-esophageal reflux disease without esophagitis; K52.9 Noninfective gastroenteritis and colitis, unspecified; K76.0 Fatty (change of) liver, not elsewhere classified; M10.9 Gout, unspecified; N20.0 Calculus of kidney; R32 Unspecified urinary incontinence; Z87.11 Personal history of peptic ulcer disease; F10.20 Alcohol dependence, uncomplicated; Z96.653 Presence of artificial knee joint, bilateral; Z68.39 Body mass index [BMI] 39.0-39.9, adult; Z82.49 Family history of ischemic heart disease and other diseases of the circulatory system; Z86.14 Personal history of Methicillin resistant Staphylococcus aureus infection
CPT/HCPCS: 36415; 36556; 36600; 70450; 71045; 71046; 73130; 74018; 74176; 76705; 76937; 80048; 80053; 80061; 80076; 80307; 81001; 82150; 82310; 82550; 82805; 82962; 83605; 83690; 83735; 83880; 84100; 84295; 84478; 84484; 85007; 85025; 85610; 85730; 87040; 87070; 87186; 87205; 87324; 87449; 87641; 87804; 87880; 93005; 93306; 93926; 93971; 94002; 94003; 94640; 94760; 96361; 96374; 96376; C1892; G0480; J0171; J0330; J0360; J0610; J0878; J1630; J1644; J1815; J2020; J2060; J2185; J2250; J2270; J2543; J2597; J2704; J3010; J3370; J3475; J3480; J3490; J7030; J7040; J7050; J7620; S0028; 92526; 92610; 97110; 97116; 97530; 99285-25; G0479

== ENCOUNTER → 2018-03-18 | Outpatient (CLI) | payer BC ==
[~2018-03-18] MED LIST changes: +BYSTOLIC20 MG PO; +CALC500T54 PO; +DULO20CA PO; +HYDR-3164 PO; -HYDR-971 PO; +LANS30CA PO; +LOSA25TA54 PO; +MAGN400C PO; +MULT1TAB52 PO; +NEO/5DRO OD; +TIZA4TAB PO; +TRAM50TA PO; +VALA1000 PO; +[UNRECOGNIZED DRUG - OTHER]
--- NOTE | 2018-03-18 17:43 | KCIC ---
Nonvascular left extremity ultrasound History: Left axillary lump, history of left hand cellulitis, diabetes Comparison: None. Findings: Multiple sonographic images of the left axillary region are submitted, contralateral right axillary region also evaluated for comparison. There are multiple left axillary lymph nodes with the largest 1.5 x 0.6 x 1.6 cm in size. No abscess is demonstrated. No lymphadenopathy is demonstrated of the right axillary region. Impression: 1. There are nonspecific left axillary lymph nodes, largest not considered significantly enlarged in the short axis dimension. No abscess is demonstrated. Electronically signed by: Trae Mccray MD (03/18/2018 5:39 PM) [id number]
== END | disposition home or self-care (01) ==
LOC: KCIC US 08:12
PROVIDERS: ATTEND Family Medicine
DX: R22.32 Localized swelling, mass and lump, left upper limb (principal)
CPT/HCPCS: 76882

== ENCOUNTER 2020-01-18 16:24 | Inpatient (IN) | payer BC ==
[~2020-01-18] VITALS: Ht 188 cm; Wt 150.6 kg
[~2020-01-18 16:24] MED LIST changes: +AMLO-187 PO; -AMLO10TA6 PO; +MULT-445 PO; -MULT1TAB52 PO; -TIZA4TAB PO; +TIZA4TAB2 PO; -VALA1000 PO; +VALA10008 PO
[2020-01-18] MEDS ORDERED: ASPIRIN 325 MG TABLET PO ONE (16:30)
[2020-01-18] MEDS ORDERED: LIDO:MAALOX 1:1 20 ML SINGLE DOSE. SWSW ONE (16:30)
[2020-01-18] MEDS ORDERED: NITROGLYCERIN SUBLINGUAL 0.4 MG BOTTLE OF 25. SL PRN ×2 (16:30→19:00)
[2020-01-18 16:55] LABS: BASO # 0.1 x10^3/uL (0.0-0.2); BASO % 1 % (0-3); EOS # 0.1 x10^3/uL (0.0-0.7); EOS % 1 % (0-3); HEMATOCRIT 45.2 % (39.0-53.0); HEMOGLOBIN 15.4 g/dL (13.0-17.5); LYMPH # 1.6 x10^3/uL (1.0-4.8); LYMPH % 19 % (24-48); MEAN CORPUSCULAR HEMOGLOBIN 29 pg (25-35); MEAN CORPUSCULAR HGB CONC 34 g/dL (31-37); MEAN CORPUSCULAR VOLUME 85 fL (79-100); MONO # 0.5 x10^3/uL (0.0-1.1); MONO % 6 % (0-9); NEUT # 6.3 x10^3/uL (1.8-7.7); NEUT % 74 % (31-73); PLATELET COUNT 382 x10^3/uL (140-400); RED BLOOD COUNT 5.29 x10^6/uL (4.30-5.70); RED CELL DISTRIBUTION WIDTH 16.7 % (11.5-14.5); WHITE BLOOD COUNT 8.5 x10^3/uL (4.0-11.0)
--- NOTE | 2020-01-18 17:02 | RAD ---
PORTABLE CHEST 1V 01/18/2020 4:27 PM INDICATION: Chest pain COMPARISON: None available TECHNIQUE: Portable frontal view of the chest is provided. FINDINGS: The cardiomediastinal silhouette is within normal limits. Lungs are clear. There are no significant pleural effusions. There is no pulmonary vascular congestion. No pneumothorax. No suspicious osseous abnormality. IMPRESSION: There is no acute cardiopulmonary process. Electronically signed by: Keisha Walls MD (01/18/2020 4:59 PM) [id number]
[2020-01-18 17:06] LABS: CALCIUM 8.8 mg/dL (8.5-10.1); CREATININE 1.2 mg/dL (0.7-1.3); GFR 65.5; POTASSIUM 3.5 mmol/L (3.5-5.1)
[2020-01-18 17:12] LABS: ALBUMIN 3.1 g/dL (3.4-5.0); ALBUMIN/GLOBULIN RATIO 0.8 (1.0-1.7); MAGNESIUM 2.6 mg/dL (1.8-2.4); TOTAL BILIRUBIN 1.5 mg/dL (0.2-1.0); TOTAL PROTEIN 7.2 g/dL (6.4-8.2)
[2020-01-18 17:17] LABS: D-DIMER 0.66 ug/mlFEU (0.00-0.50)
[2020-01-18] MEDS ORDERED: IOHEXOL 350 MG/ML 100 ML VIAL. IV ONE (17:45)
[2020-01-18] MEDS ORDERED: CONTRAST GIVEN. MC PRN (18:00)
--- NOTE | 2020-01-18 18:05 | PHYS DOC ---
Past Medical History Past Medical History: Anxiety, GERD, Hypertension Past Surgical History: Knee Replacement, Other Additional Past Surgical Histo: BILATERAL KNEE REPLACEMENT, NECK SURGERY, WISDOM TEETH EXTRACTED. 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 Patient denies anything specifically exacerbating or relieving the pain. He states the pain feels like stabbing in the substernal region of the chest. Review of Systems: Review of Systems: Constitutional: Denies fever or chills. [] Eyes: Denies change in visual acuity. [] HENT: Denies nasal congestion or sore throat. [] Respiratory: Denies cough or shortness of breath. [] Cardiovascular: Reports chest pain/epigastric pain GI: Denies abdominal pain, nausea, vomiting, bloody stools or diarrhea. [] : Denies dysuria. [] Musculoskeletal: Denies back pain or joint pain. [] Integument: Denies rash. [] Neurologic: Denies headache, focal weakness or sensory changes. [] Psychiatric: Denies depression or anxiety. [] Heart Score: HEART Score for Chest Pain: HEART Score for Chest Pain Response (Comments) Value History Slighlty/Non-Suspicious 0 ECG Normal 0 Age < 45 0 Risk Factors 1 or 2 Risk Factors 1 Troponin < Normal Limit 0 Total 1 Risk Factors: Risk Factors: DM, Current or recent (<one month) smoker, HTN, HLP, family history of CAD, obesity. Risk Scores: Score 0 - 3: 2.5% MACE over next 6 weeks - Discharge Home Score 4 - 6: 20.3% MACE over next 6 weeks - Admit for Clinical Observation Score 7 - 10: 72.7% MACE over next 6 weeks - Early Invasive Strategies Current Medications: Current Medications Medications (Trade) Dose Ordered Sig/Yamile Start Time Stop Time Status Last Admin Dose Admin Aspirin (Yossi Aspirin) 325 mg 1X ONCE 01/18/20 16:30 01/18/20 16:34 DC 01/18/20 17:01 325 MG Info (CONTRAST GIVEN -- Rx MONITORING) 1 each PRN DAILY PRN 01/18/20 18:00 01/20/20 17:59 Iohexol (Omnipaque 350 Mg/ml) 100 ml 1X ONCE 01/18/20 17:45 01/18/20 17:46 DC 01/18/20 17:54 100 ML Morphine Sulfate (Morphine Sulfate) 4 mg PRN Q15MIN PRN 01/18/20 16:30 01/19/20 16:29 Multi-Ingredient Mouthwash/Gargle (Gi Cocktail) 20 ml 1X ONCE 01/18/20 16:30 01/18/20 16:34 DC 01/18/20 17:02 20 ML Nitroglycerin (Nitrostat) 0.4 mg PRN Q5MIN PRN 01/18/20 16:30 01/19/20 16:29 01/18/20 17:49 0.4 MG Allergies: Allergies: Allergies Coded Allergies Type Severity Reaction Last Updated Verified No Known Drug Allergies 09/21/15 No Physical Exam: PE: Constitutional: Well developed, well nourished, no acute distress, non-toxic appearance. [] HENT: Normocephalic, atraumatic, bilateral external ears normal, oropharynx moist, no oral exudates, nose normal. [] Eyes: PERRLA, EOMI, conjunctiva normal, no discharge. [] Neck: Normal range of motion, no tenderness, supple, no stridor. [] Cardiovascular:Heart rate regular rhythm, no murmur [] Lungs & Thorax: Bilateral breath sounds clear to auscultation [] Abdomen: Bowel sounds normal, soft, no tenderness, no masses, no pulsatile masses. [] Skin: Warm, dry, no erythema, no rash. [] Back: No tenderness, no CVA tenderness. [] Extremities: No tenderness, no cyanosis, no clubbing, ROM intact, no edema. [] Neurologic: Alert and oriented X 3, normal motor function, normal sensory function, no focal deficits noted. [] Psychologic: Affect normal, judgement normal, mood normal. [] Current Patient Data: Labs: Laboratory Tests Test 01/18/20 16:44 White Blood Count 8.5 x10^3/uL (4.0-11.0) Red Blood Count 5.29 x10^6/uL (4.30-5.70) Hemoglobin 15.4 g/dL (13.0-17.5) Hematocrit 45.2 % (39.0-53.0) Mean Corpuscular Volume 85 fL (79-100) Mean Corpuscular Hemoglobin 29 pg (25-35) Mean Corpuscular Hemoglobin Concent 34 g/dL (31-37) Red Cell Distribution Width 16.7 % (11.5-14.5) H Platelet Count 382 x10^3/uL (140-400) Neutrophils (%) (Auto) 74 % (31-73) H Lymphocytes (%) (Auto) 19 % (24-48) L Monocytes (%) (Auto) 6 % (0-9) Eosinophils (%) (Auto) 1 % (0-3) Basophils (%) (Auto) 1 % (0-3) Neutrophils # (Auto) 6.3 x10^3/uL (1.8-7.7) Lymphocytes # (Auto) 1.6 x10^3/uL (1.0-4.8) Monocytes # (Auto) 0.5 x10^3/uL (0.0-1.1) Eosinophils # (Auto) 0.1 x10^3/uL (0.0-0.7) Basophils # (Auto) 0.1 x10^3/uL (0.0-0.2) Prothrombin Time 12.0 SEC (11.7-14.0) Prothrombin Time INR 0.9 (0.8-1.1) D-Dimer (Belle) 0.66 ug/mlFEU (0.00-0.50) H Sodium Level 132 mmol/L (136-145) L Potassium Level 3.5 mmol/L (3.5-5.1) Chloride Level 95 mmol/L (98-107) L Carbon Dioxide Level 18 mmol/L (21-32) L Anion Gap 19 (6-14) H Blood Urea Nitrogen 21 mg/dL (8-26) Creatinine 1.2 mg/dL (0.7-1.3) Estimated GFR (Cockcroft-Gault) 65.5 BUN/Creatinine Ratio 18 (6-20) Glucose Level 204 mg/dL (70-99) H Calcium Level 8.8 mg/dL (8.5-10.1) Magnesium Level 2.6 mg/dL (1.8-2.4) H Total Bilirubin 1.5 mg/dL (0.2-1.0) H Aspartate Amino Transferase (AST) 37 U/L (15-37) Alanine Aminotransferase (ALT) 48 U/L (16-63) Alkaline Phosphatase 141 U/L (46-116) H Troponin I Quantitative < 0.017 ng/mL (0.000-0.055) SF-Sfs-H-Type Natriuretic Peptide 403 pg/mL (0-124) H Total Protein 7.2 g/dL (6.4-8.2) Albumin 3.1 g/dL (3.4-5.0) L Albumin/Globulin Ratio 0.8 (1.0-1.7) L Lipase 629 U/L (73-393) H Thyroid Stimulating Hormone (TSH) 0.882 uIU/mL (0.358-3.74) Laboratory Tests 01/18/20 16:44 Laboratory Tests 01/18/20 16:44 Vital Signs: Vital Signs Date Time Temp Pulse Resp B/P (MAP) Pulse Ox O2 Delivery O2 Flow Rate FiO2 01/18/20 17:49 76 114/75 01/18/20 16:27 97.3 20 97 Room Air 97.3 EKG: EK interpreted by DR. Cardenas sinus rhythm HR 77 no STEMI[] Radiology/Procedures: Radiology/Procedures: []PROCEDURE: PORTABLE CHEST 1V PORTABLE CHEST 1V 01/18/2020 4:27 PM INDICATION: Chest pain COMPARISON: None available TECHNIQUE: Portable frontal view of the chest is provided. FINDINGS: The cardiomediastinal silhouette is within normal limits. Lungs are clear. There are no significant pleural effusions. There is no pulmonary vascular congestion. No pneumothorax. No suspicious osseous abnormality. IMPRESSION: There is no acute cardiopulmonary process. Electronically signed by: Hayley Jones MD (01/18/2020 4:59 PM) [id number] DICTATED and SIGNED BY: HAYLEY JONES MD DATE: 01/18/20 1659 PROCEDURE: CT ANGIOGRAPHY CHEST CTA scan of the Chest with Contrast (Pulmonary Embolism protocol) 01/18/2020 Clinical History: Chest pain. Technique: After the intravenous administration of 100 cc of Omnipaque 350, contiguous, 0.625 mm axial sections were obtained through the chest. 2 mm axial and 3D MIP coronal and sagittal reconstructed images were obtained. One or more of the following individualized dose reduction techniques were utilized for this study: 1. Automated exposure control. 2. Adjustment of the mA and/or kV according to patient size. 3. Use of iterative reconstruction technique. Findings: The majority of the contrast is within the pulmonary veins and thoracic aortic arch. Limited contrast opacification of the pulmonary arteries with contrast is seen severely limiting the study. No obvious filling defect is seen to suggest definite evidence of pulmonary embolism. The heart is normal in size. The thoracic aorta tapers normally. Small calcified left mediastinal lymph node is seen. Gynecomastia is seen bilaterally. A 4 mm noncalcified nodule seen involving the right upper lobe. This may represent an noncalcified granuloma. Minimal dependent subsegmental atelectasis is seen involving both lungs. No area of consolidation, pleural effusion or pneumothorax is seen. Impression: Limited contrast opacification of the pulmonary arteries limiting the study is discussed above There is no definite CT evidence of pulmonary embolism. Electronically signed by: Kendell Monique MD (01/18/2020 6:28 PM) [id number] DICTATED and SIGNED BY: KENDELL MONIQUE MD DATE: 01/18/201827 Course & Med Decision Making: Course & Med Decision Making Pertinent Labs and Imaging studies reviewed. (See chart for details) This is a 44-year-old male patient presenting to the ED today with epigastric chest/abdominal pain that began at 11 AM. EKG is negative, chest x-ray is negative. D-dimer 0.66, CTA chest was done which was negative. CBC with no acute findings, troponin is normal, EKG is normal. CMP with a glucose of 204, anion gap is 19, magnesium 2.6, patient denies any history of diabetes. Lipase 629, patient admits to history of alcohol use as much as 6 beers a day, he st ates last alcohol use was 2 weeks ago though he states he did a lot of damage to himself spoke with We will give him IV fluids for now. Spoke with Dr. Villalobos who accepted patient for admission Routine consult placed for GI and cardiology. Dragon Disclaimer: Dragbenedict Disclaimer: This electronic medical record was generated, in whole or in part, using a voice recognition dictation system. Departure Departure Impression: Primary Impression: Chest pain Qualified Codes: R07.9 - Chest pain, unspecified Additional Impressions: Epigastric pain Pancreatitis Qualified Codes: K85.91 - Acute pancreatitis with uninfected necrosis, unspecified Hyperglycemia ETOHism Disposition: 09 ADMITTED INPT THIS HOSP Condition: STABLE Referrals: GENARO PHILIP (PCP) VALENTINO LOONEY CERTIFIED REGISTERED DENTAL ASSISTANT Jan 18, 2020 18:05
[2020-01-18] MEDS: MORPHINE SULFATE 4 MG/ML VIAL. IV/SQ PRN ×2 (18:09→20:10)
--- NOTE | 2020-01-18 18:31 | RAD ---
CTA scan of the Chest with Contrast (Pulmonary Embolism protocol) 01/18/2020 Clinical History: Chest pain. Technique: After the intravenous administration of 100 cc of Omnipaque 350, contiguous, 0.625 mm axial sections were obtained through the chest. 2 mm axial and 3D MIP coronal and sagittal reconstructed images were obtained. One or more of the following individualized dose reduction techniques were utilized for this study: 1. Automated exposure control. 2. Adjustment of the mA and/or kV according to patient size. 3. Use of iterative reconstruction technique. Findings: The majority of the contrast is within the pulmonary veins and thoracic aortic arch. Limited contrast opacification of the pulmonary arteries with contrast is seen severely limiting the study. No obvious filling defect is seen to suggest definite evidence of pulmonary embolism. The heart is normal in size. The thoracic aorta tapers normally. Small calcified left mediastinal lymph node is seen. Gynecomastia is seen bilaterally. A 4 mm noncalcified nodule seen involving the right upper lobe. This may represent an noncalcified granuloma. Minimal dependent subsegmental atelectasis is seen involving both lungs. No area of consolidation, pleural effusion or pneumothorax is seen. Impression: Limited contrast opacification of the pulmonary arteries limiting the study is discussed above There is no definite CT evidence of pulmonary embolism. Electronically signed by: Kendell Monique MD (01/18/2020 6:28 PM) [id number]
[2020-01-18] MEDS ORDERED: DOCUSATE SODIUM 100 MG CAPSULE. PO PRN (19:00)
[2020-01-18] MEDS ORDERED: DEXTROSE 50% 25 GM / 50ML DISP.SYRIN. IV PRN (19:00)
[2020-01-18] MEDS ORDERED: MAGNESIUM SULFATE 2GM 50 ML IV SCH (19:00)
[2020-01-18] MEDS ORDERED: POTASSIUM CHLORIDE 10MEQ 100 ML IV PRN (19:00)
[2020-01-18] MEDS ORDERED: SENNOSIDES 8.6 MG TABLET PO PRN (19:00)
[2020-01-18] MEDS ORDERED: POTASSIUM CHLORIDE 10MEQ 100 ML IV SCH (19:00)
[2020-01-18] MEDS ORDERED: POTASSIUM CHLORIDE 20 MEQ TABLET.ER. PO PRN (19:00)
--- NOTE | 2020-01-18 19:05 | PDOC1 ---
History and Physical Date of Service: DOS: DATE: 01/18/20 TIME: 18:59 Chief Complaint: Chief Complain: Chest pain and epigastric abdominal pain History of Present Illness: HPI: 44 yo M with PMHx of DM, HTN, anxiety and morbid Obesity who presents with dull and aching chest/epigastric pain that is reproducible upon pressure. States that is nonradiating and stays in the substernum and is constant. This occurred at rest while he was sitting in his car at work and doing paperwork. There are no alleviating or exacerbating factors. Denies any fevers, shortness of breath, nausea vomiting, diarrhea, syncope, or palpitations. States he has never had t his pain before. Past Medical/Surgical History: PMH/PSH: Past Medical History: Diabetes mellitus Type 2, anxiety, GERD, Hypertension Past Surgical History: BILATERAL KNEE REPLACEMENT, NECK SURGERY, WISDOM TEETH EXTRACTED. Allergies: Allergies: Coded Allergies: No Known Drug Allergies (Unverified , 09/21/15) Family History: Family History: Reviewed and none reported Social History: Social History: Smoking Status: Never Smoker Alcohol Use: Heavy Drug Use: None Current Medications: Current Medications Current Medications Aspirin (Yossi Aspirin) 325 mg 1X ONCE PO Last administered on 01/18/20at 17:01; Start 01/18/20 at 16:30; Stop 01/18/20 at 16:34; Status DC Nitroglycerin (Nitrostat) 0.4 mg PRN Q5MIN PRN SL CP RATING > 1/10 Last administered on 01/18/20at 17:49; Start 01/18/20 at 16:30; Stop 01/19/20 at 16:29 Morphine Sulfate (Morphine Sulfate) 4 mg PRN Q15MIN PRN IV/SQ PAIN GREATER THAN 3/10 Last administered on 01/18/20at 18:09; Start 01/18/20 at 16:30; Stop 01/19/20 at 16:29 Multi-Ingredient Mouthwash/Gargle (Gi Cocktail) 20 ml 1X ONCE SWSW Last administered on 01/18/20at 17:02; Start 01/18/20 at 16:30; Stop 01/18/20 at 16:34; Status DC Iohexol (Omnipaque 350 Mg/ml) 100 ml 1X ONCE IV Last administered on 01/18/20at 17:54; Start 01/18/20 at 17:45; Stop 01/18/20 at 17:46; Status DC Info (CONTRAST GIVEN -- Rx MONITORING) 1 each PRN DAILY PRN MC SEE COMMENTS; Start 01/18/20 at 18:00; Stop 01/20/20 at 17:59 Active Scripts Active Reported [hemp botanicals] Maxitrol Eye Drops (Brandon/Polymyx B Sulf/Dexameth) 5 Ml Drops.susp 1 Drop OD QID Multivitamins (Multivitamin) 1 Each Tablet 1 Tab PO DAILY Magnesium (Magnesium Oxide) 400 Mg Capsule 1 Cap PO DAILY Lansoprazole 30 Mg Capsule.dr 1 Cap PO DAILY Losartan Potassium 25 Mg Tablet 25 Mg PO DAILY Tizanidine Hcl 4 Mg Tablet 1 Tab PO TID Tramadol Hcl 50 Mg Tablet 50 Mg PO DAILY PRN Bystolic (Nebivolol Hcl) 20 Mg Tablet 20 Mg PO DAILY Cymbalta (Duloxetine Hcl) 20 Mg Capsule.dr 1 Cap PO DAILY Valacyclovir (Valacyclovir Hcl) 1,000 Mg Tablet 1 Tab PO DAILY Ibuprofen 400 Mg Tablet 400 Mg PO PRN Q6HRS PRN Bystolic (Nebivolol) 10 Mg Tablet 20 Mg PO DAILY Amlodipine Besylate 10 Mg Tablet 10 Mg PO DAILY ROS: Review of Systems Review of System REVIEW OF SYSTEMS: GENERAL: Denies weakness SKIN: No bruising, hair changes or rashes. EYES: No blurred, double or loss of vision. NOSE AND THROAT: No history of nosebleeds, hoarseness or sore throat. HEART: No history of palpitations, chest pain or shortness of breath on exertion. LUNGS: Denies cough, hemoptysis, wheezing or shortness of breath. GASTROINTESTINAL: Denies changes in appetite, nausea, vomiting, diarrhea or constipation. GENITOURINARY: No history of frequency, urgency, hesitancy or nocturia. NEUROLOGIC: Denies history of numbness, tingling, or tremor. PSYCHIATRIC: No history of panic, anxiety or depression. ENDOCRINE: No history of heat or cold intolerance, polyuria or polydipsia. EXTREMITIES: Denies joint pain, pain on walking or stiffness. Physical Exam: Vital Signs: Vital Signs Date Time Temp Pulse Resp B/P (MAP) Pulse Ox O2 Delivery O2 Flow Rate FiO2 01/18/20 18:09 16 96 Room Air 01/18/20 17:49 76 114/75 01/18/20 16:27 97.3 97.3 Physcial Exam: GEN: No apparent distress. Alert and oriented HEENT: Normal cephalic, atraumatic, external auditory canals are patent EYES: Extraocular muscles are intact, pupil are equally round and reactive to light and accommodation MUSCULOSKELETAL: Well developed , well nourished, good range of motion ENDOCRINE: No thyromegaly was palpated LYMPHATICS: No cervical chain or axillary nodes were noted HEMATOPOIETIC: No bruising NECK: Supple, no JVD, no thyromegaly was noted LUNGS: Clear to auscultation in all lung hendrickson without rhonchi or wheezing HEART: RRR, S!, S2 present. Peripheral pulses intact, no obvious murmurs noted ABDOMEN: Soft, nontender. Positive bowel sounds, no organomegaly, normal bowel sounds EXTREMITIES: Without clubbing, cyanosis, or edema. Pedal pulses intact. Negative Homans sign NEUROLOGIC: Normal speech and tone. A&O x 3, moves all extremities, no obvious focal deficits PSYCHIATRIC: Normal affect, normal mood. Stable SKIN: No ulcerations or rashes, good skin turgor, no jaundice VASCULAR: Good capillary refill, neurovascular bundle appears to be intact Labs: Labs: Laboratory Tests Test 01/18/20 16:44 White Blood Count 8.5 x10^3/uL (4.0-11.0) Red Blood Count 5.29 x10^6/uL (4.30-5.70) Hemoglobin 15.4 g/dL (13.0-17.5) Hematocrit 45.2 % (39.0-53.0) Mean Corpuscular Volume 85 fL (79-100) Mean Corpuscular Hemoglobin 29 pg (25-35) Mean Corpuscular Hemoglobin Concent 34 g/dL (31-37) Red Cell Distribution Width 16.7 % (11.5-14.5) Platelet Count 382 x10^3/uL (140-400) Neutrophils (%) (Auto) 74 % (31-73) Lymphocytes (%) (Auto) 19 % (24-48) Monocytes (%) (Auto) 6 % (0-9) Eosinophils (%) (Auto) 1 % (0-3) Basophils (%) (Auto) 1 % (0-3) Neutrophils # (Auto) 6.3 x10^3/uL (1.8-7.7) Lymphocytes # (Auto) 1.6 x10^3/uL (1.0-4.8) Monocytes # (Auto) 0.5 x10^3/uL (0.0-1.1) Eosinophils # (Auto) 0.1 x10^3/uL (0.0-0.7) Basophils # (Auto) 0.1 x10^3/uL (0.0-0.2) Prothrombin Time 12.0 SEC (11.7-14.0) Prothromb Time International Ratio 0.9 (0.8-1.1) D-Dimer (Belle) 0.66 ug/mlFEU (0.00-0.50) Sodium Level 132 mmol/L (136-145) Potassium Level 3.5 mmol/L (3.5-5.1) Chloride Level 95 mmol/L (98-107) Carbon Dioxide Level 18 mmol/L (21-32) Anion Gap 19 (6-14) Blood Urea Nitrogen 21 mg/dL (8-26) Creatinine 1.2 mg/dL (0.7-1.3) Estimated GFR (Cockcroft-Gault) 65.5 BUN/Creatinine Ratio 18 (6-20) Glucose Level 204 mg/dL (70-99) Calcium Level 8.8 mg/dL (8.5-10.1) Magnesium Level 2.6 mg/dL (1.8-2.4) Total Bilirubin 1.5 mg/dL (0.2-1.0) Aspartate Amino Transf (AST/SGOT) 37 U/L (15-37) Alanine Aminotransferase (ALT/SGPT) 48 U/L (16-63) Alkaline Phosphatase 141 U/L (46-116) Troponin I Quantitative < 0.017 ng/mL (0.000-0.055) DS-Lpv-W-Type Natriuretic Peptide 403 pg/mL (0-124) Total Protein 7.2 g/dL (6.4-8.2) Albumin 3.1 g/dL (3.4-5.0) Albumin/Globulin Ratio 0.8 (1.0-1.7) Lipase 629 U/L (73-393) Thyroid Stimulating Hormone (TSH) 0.882 uIU/mL (0.358-3.74) Ethyl Alcohol Level < 10 mg/dL (0-10) Laboratory Tests Test 01/18/20 16:44 White Blood Count 8.5 x10^3/uL (4.0-11.0) Red Blood Count 5.29 x10^6/uL (4.30-5.70) Hemoglobin 15.4 g/dL (13.0-17.5) Hematocrit 45.2 % (39.0-53.0) Mean Corpuscular Volume 85 fL (79-100) Mean Corpuscular Hemoglobin 29 pg (25-35) Mean Corpuscular Hemoglobin Concent 34 g/dL (31-37) Red Cell Distribution Width 16.7 % (11.5-14.5) Platelet Count 382 x10^3/uL (140-400) Neutrophils (%) (Auto) 74 % (31-73) Lymphocytes (%) (Auto) 19 % (24-48) Monocytes (%) (Auto) 6 % (0-9) Eosinophils (%) (Auto) 1 % (0-3) Basophils (%) (Auto) 1 % (0-3) Neutrophils # (Auto) 6.3 x10^3/uL (1.8-7.7) Lymphocytes # (Auto) 1.6 x10^3/uL (1.0-4.8) Monocytes # (Auto) 0.5 x10^3/uL (0.0-1.1) Eosinophils # (Auto) 0.1 x10^3/uL (0.0-0.7) Basophils # (Auto) 0.1 x10^3/uL (0.0-0.2) Prothrombin Time 12.0 SEC (11.7-14.0) Prothromb Time International Ratio 0.9 (0.8-1.1) D-Dimer (Belle) 0.66 ug/mlFEU (0.00-0.50) Sodium Level 132 mmol/L (136-145) Potassium Level 3.5 mmol/L (3.5-5.1) Chloride Level 95 mmol/L (98-107) Carbon Dioxide Level 18 mmol/L (21-32) Anion Gap 19 (6-14) Blood Urea Nitrogen 21 mg/dL (8-26) Creatinine 1.2 mg/dL (0.7-1.3) Estimated GFR (Cockcroft-Gault) 65.5 BUN/Creatinine Ratio 18 (6-20) Glucose Level 204 mg/dL (70-99) Calcium Level 8.8 mg/dL (8.5-10.1) Magnesium Level 2.6 mg/dL (1.8-2.4) Total Bilirubin 1.5 mg/dL (0.2-1.0) Aspartate Amino Transf (AST/SGOT) 37 U/L (15-37) Alanine Aminotransferase (ALT/SGPT) 48 U/L (16-63) Alkaline Phosphatase 141 U/L (46-116) Troponin I Quantitative < 0.017 ng/mL (0.000-0.055) KA-Ays-C-Type Natriuretic Peptide 403 pg/mL (0-124) Total Protein 7.2 g/dL (6.4-8.2) Albumin 3.1 g/dL (3.4-5.0) Albumin/Globulin Ratio 0.8 (1.0-1.7) Lipase 629 U/L (73-393) Thyroid Stimulating Hormone (TSH) 0.882 uIU/mL (0.358-3.74) Ethyl Alcohol Level < 10 mg/dL (0-10) Images: Images CXR IMPRESSION: There is no acute cardiopulmonary process. CHEST CTA Impression: Limited contrast opacification of the pulmonary arteries limiting the study is discussed above There is no definite CT evidence of pulmonary embolism. Assessment/Plan Assessment/Plan Acute chest pain concerning for pancreatitis versus NSTEMI Elevated lipase Acute electrolyte abnormalitieshyponatremia, hypochloremia due to volume depletion AGMA Morbid obesity Diabetes mellitus type 2 insulin-dependent Admit to medicine for further management EKG showing no acute ST changes troponin are negative Continue to trend troponins Continue aspirin Cardiology consulted for predischarge stress testing or left heart cath Continue nitroglycerin as needed for pain Continue beta-harjit if blood pressures allow Continue high intensity statins IV morphine as needed Repeat EKG in the a.m. if continues to have chest pain Continue telemetry monitoring Monitor for electrolyte abnormalities Avoid NSAIDs GI consult for pancreatitis Pending CT abdomen pelvis Lipid panel Keep n.p.o. Lovenox for DVT prophylaxis Protonix GI prophylaxis Full code Discussed with RN and SW Disposition pending cardiac and GI evaluation Surrogate decision maker is Justifications for Admission Other Justification JANET MONTERROSO MD Jan 18, 2020:05
[2020-01-18] MEDS ORDERED: ELECTROLYTE (NON-ICU) PROTOCOL. MC PRN (19:15)
[2020-01-18] MEDS: IV NORMAL SALINE 1000ML BAG 1,000 ML IV SCH ×2 (19:16→22:15)
[2020-01-18 19:27] LABS: BILIRUBIN,URINE SMALL (NEG); CLARITY,URINE CLEAR; COLOR,URINE AMBER; NITRITE,URINE NEGATIVE (NEG); PROTEIN,URINE 30 mg/dL (NEG-TRACE)
[2020-01-18] MEDS ORDERED: IV NORMAL SALINE 1000ML BAG 1,000 ML IV ONE (19:30)
[2020-01-18] MEDS ORDERED: ONDANSETRON PF 4 MG/2 ML VIAL. IV PRN (19:30)
[2020-01-18 19:33] LABS: AMORPHOUS SEDIMENT,UR PRESENT /HPF; AMPHETAMINE/METHAMPHETAMINE NEG (NEG); BACTERIA,URINE FEW /HPF (0-FEW); BARBITURATES NEG (NEG); BENZODIAZEPINES NEG (NEG); CANNABINOIDS NEG (NEG); COCAINE NEG (NEG); METHADONE NEG (NEG); OPIATES NEG (NEG); PHENCYCLIDINE NEG (NEG); RBC,URINE 0 /HPF (0-2)
[2020-01-18 19:43] LABS: CHOLESTEROL 274 mg/dL (0-200); TRIGLYCERIDES 2247 mg/dL (0-150)
[2020-01-18 19:46] LABS: VLDLC 449 mg/dL (0-40)
--- NOTE | 2020-01-18 20:37 | RAD ---
Exam: CT of abdomen and pelvis without contrast INDICATION: Abdominal pain TECHNIQUE: Sequential axial images through the abdomen and pelvis obtained without IV contrast. Sagittal and coronal reformatted images were reconstructed from the axial data and reviewed. Comparisons: None FINDINGS: Heart size is normal. No pericardial effusion. Visualized lung bases are clear. No pleural effusion. Diffuse hepatic steatosis. Spleen, and adrenals are unremarkable. Mild fat stranding surrounding the pancreas. No peripancreatic fluid collection. Gallbladder is distended. No perinephric inflammation or hydronephrosis. Evaluation for calculi limited secondary to excretion phase the exam. Bladder is partially distended not well evaluated prostate is not enlarged. Large and small bowel are unremarkable. Appendix is normal. No free intra-abdominal air or fluid. No obstruction. Abdominal aorta has a normal course and caliber. No enlarged abdominal lymph nodes are identified. No suspicious osseous lesions or acute fractures. IMPRESSION: 1. Inflammatory changes surrounding the pancreas, may relate to pancreatitis. 2. Diffuse hepatic steatosis. Exposure: One or more of the following in the visualized dose reduction techniques were utilized for this examination: 1. Automated exposure control 2. Adjustment of the MA and/or KV according to patient size 3. Use of iterative of reconstructive technique Electronically signed by: Elma Lares MD (01/18/2020 8:35 PM) [facility]
[2020-01-18] MEDS ORDERED: MAGNESIUM OXIDE 400 MG TABLET PO SCH (21:00)
[2020-01-18] MEDS ORDERED: cloNIDine HCL 0.1 MG TABLET PO STA (21:20)
[2020-01-18] MEDS ORDERED: LABETALOL 20 MG/4 ML DISP.SYRIN. IVP ONE (21:30)
[2020-01-18 22:16] VITALS: BP 114/75
[2020-01-18] MEDS: MORPHINE SULFATE 4 MG/ML VIAL. IV PRN (23:23)
[2020-01-18] MEDS: LORazepam 0.5 MG TABLET PO PRN (23:24)
[2020-01-18] MEDS ORDERED: INSU100I13 SQ (23:48)
[2020-01-18] MEDS ORDERED: DULO60CA45 PO (23:48)
[2020-01-18] MEDS ORDERED: GABA300C9 PO (23:48)
[2020-01-18] MEDS ORDERED: INSU100V2 SQ (23:48)
[2020-01-19] MEDS: MORPHINE SULFATE 4 MG/ML VIAL. IV PRN ×4 (02:49→15:20)
[2020-01-19 03:05] VITALS: BP 109/70
[2020-01-19 03:11] LABS: BASO % 1 % (0-3); EOS # 0.2 x10^3/uL (0.0-0.7); EOS % 2 % (0-3); HEMATOCRIT 42.6 % (39.0-53.0); HEMOGLOBIN 14.3 g/dL (13.0-17.5); LYMPH # 2.1 x10^3/uL (1.0-4.8); LYMPH % 25 % (24-48); MEAN CORPUSCULAR HEMOGLOBIN 29 pg (25-35); MEAN CORPUSCULAR HGB CONC 34 g/dL (31-37); MEAN CORPUSCULAR VOLUME 86 fL (79-100); MONO # 0.5 x10^3/uL (0.0-1.1); MONO % 7 % (0-9); NEUT # 5.4 x10^3/uL (1.8-7.7); NEUT % 65 % (31-73); PLATELET COUNT 357 x10^3/uL (140-400); RED BLOOD COUNT 4.95 x10^6/uL (4.30-5.70); RED CELL DISTRIBUTION WIDTH 16.9 % (11.5-14.5); WHITE BLOOD COUNT 8.2 x10^3/uL (4.0-11.0)
[2020-01-19 03:18] LABS: CALCIUM 8.5 mg/dL (8.5-10.1); CREATININE 1.3 mg/dL (0.7-1.3); GFR 59.7; MAGNESIUM 2.6 mg/dL (1.8-2.4); PHOSPHORUS 2.3 mg/dL (2.6-4.7); POTASSIUM 3.6 mmol/L (3.5-5.1)
[2020-01-19] MEDS: ACETAMINOPHEN 325 MG TABLET. PO PRN ×2 (05:20→12:14)
[2020-01-19] MEDS: ONDANSETRON PF 4 MG/2 ML VIAL. IVP PRN ×2 (05:22→12:15)
[2020-01-19] MEDS: IV NORMAL SALINE 1000ML BAG 1,000 ML IV SCH (05:34)
--- NOTE | 2020-01-19 05:46 | EKG ---
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
[2020-01-19 07:00] VITALS: BP 110/73
[2020-01-19] MEDS: PANTOPRAZOLE 40 MG TABLET.DR. PO SCH ×2 (07:30→18:32)
[2020-01-19] MEDS ORDERED: DEXTROSE 50% 25 GM / 50ML DISP.SYRIN. IV PRN (08:00)
[2020-01-19] MEDS ORDERED: INSULIN REGULAR VIAL 100 UNIT in IV NORMAL SALINE 100ML 100 ML IV PRN (08:00)
--- NOTE | 2020-01-19 08:03 | PDOC ---
[employer] PROGRESS NOTE Date of Service DOS: DATE: 01/19/20 TIME: 08:03 Chief Complaint Chief Complaint Acute chest pain concerning for pancreatitis versus NSTEMI Elevated lipase Acute electrolyte abnormalitieshyponatremia, hypochloremia due to volume depletion AGMA Morbid obesity Diabetes mellitus type 2 insulin-dependent HTN HLD anxiety, depression Chronic back pain Ascending aortic aneurysm Hypertriglyceridemia - 2246, needs fish oil and possibly outpatient fenofibrate. Insulin GTT for now. History of Present Illness History of Present Illness Mr White is a 44 yo M with PMHx of DM, HTN, anxiety and morbid Obesity who presents with dull and aching chest/epigastric pain that is reproducible upon pressure. States that is nonradiating and stays in the substernum and is constant. This occurred at rest while he was sitting in his car at work and doing paperwork. There are no alleviating or exacerbating factors. Denies any fevers, shortness of breath, nausea vomiting, diarrhea, syncope, or palpitations. States he has never had this pain before. CT abdomen/pelvis reveals pancreatitis. Lipase > 600, triglycerides > 2000. Still with some mild pain, he is asking for diet. No CP or SOB. I have advised him insulin GTT will be the best antilipemic and outpatient prescription fish oil (Vascepa, Lovaza) is indicated for hypertriglyceridemia that is persistent. Vitals/I&O Vitals/I&O: Vital Signs Date Time Temp Pulse Resp B/P (MAP) Pulse Ox O2 Delivery O2 Flow Rate FiO2 01/19/20 05:53 18 93 Room Air 01/19/20 03:05 98.3 77 109/70 (83) 98.3 I & O 01/18/20 01/18/20 01/19/20 15:00 23:00 07:00 Intake Total 1000 ml Balance 1000 ml Physical Exam General: Alert, Oriented X3, Cooperative, mild distress Heart: Regular rate, Normal S1, Normal S2 Lungs: Clear Abdomen: Normal bowel sounds, Soft, Other (LUQ pain) Extremities: No clubbing, No cyanosis Skin: No rashes, No breakdown Labs Labs: Laboratory Tests Test 01/18/20 16:44 01/18/20 19:05 01/18/20 21:10 01/18/20 22:19 White Blood Count 8.5 x10^3/uL (4.0-11.0) Red Blood Count 5.29 x10^6/uL (4.30-5.70) Hemoglobin 15.4 g/dL (13.0-17.5) Hematocrit 45.2 % (39.0-53.0) Mean Corpuscular Volume 85 fL (79-100) Mean Corpuscular Hemoglobin 29 pg (25-35) Mean Corpuscular Hemoglobin Concent 34 g/dL (31-37) Red Cell Distribution Width 16.7 % (11.5-14.5) Platelet Count 382 x10^3/uL (140-400) Neutrophils (%) (Auto) 74 % (31-73) Lymphocytes (%) (Auto) 19 % (24-48) Monocytes (%) (Auto) 6 % (0-9) Eosinophils (%) (Auto) 1 % (0-3) Basophils (%) (Auto) 1 % (0-3) Neutrophils # (Auto) 6.3 x10^3/uL (1.8-7.7) Lymphocytes # (Auto) 1.6 x10^3/uL (1.0-4.8) Monocytes # (Auto) 0.5 x10^3/uL (0.0-1.1) Eosinophils # (Auto) 0.1 x10^3/uL (0.0-0.7) Basophils # (Auto) 0.1 x10^3/uL (0.0-0.2) Prothrombin Time 12.0 SEC (11.7-14.0) Prothromb Time International Ratio 0.9 (0.8-1.1) D-Dimer (Belle) 0.66 ug/mlFEU (0.00-0.50) Sodium Level 132 mmol/L (136-145) Potassium Level 3.5 mmol/L (3.5-5.1) Chloride Level 95 mmol/L (98-107) Carbon Dioxide Level 18 mmol/L (21-32) Anion Gap 19 (6-14) Blood Urea Nitrogen 21 mg/dL (8-26) Creatinine 1.2 mg/dL (0.7-1.3) Estimated GFR (Cockcroft-Gault) 65.5 BUN/Creatinine Ratio 18 (6-20) Glucose Level 204 mg/dL (70-99) Calcium Level 8.8 mg/dL (8.5-10.1) Magnesium Level 2.6 mg/dL (1.8-2.4) Total Bilirubin 1.5 mg/dL (0.2-1.0) Aspartate Amino Transf (AST/SGOT) 37 U/L (15-37) Alanine Aminotransferase (ALT/SGPT) 48 U/L (16-63) Alkaline Phosphatase 141 U/L (46-116) Troponin I Quantitative < 0.017 ng/mL (0.000-0.055) < 0.017 ng/mL (0.000-0.055) LP-Tcb-C-Type Natriuretic Peptide 403 pg/mL (0-124) Total Protein 7.2 g/dL (6.4-8.2) Albumin 3.1 g/dL (3.4-5.0) Albumin/Globulin Ratio 0.8 (1.0-1.7) Triglycerides Level 2247 mg/dL (0-150) Cholesterol Level 274 mg/dL (0-200) LDL Cholesterol, Calculated mg/dL (0-100) VLDL Cholesterol, Calculated 449 mg/dL (0-40) Non-HDL Cholesterol Calculated mg/dL (0-129) HDL Cholesterol mg/dL (40-60) Cholesterol/HDL Ratio Lipase 629 U/L (73-393) Thyroid Stimulating Hormone (TSH) 0.882 uIU/mL (0.358-3.74) Ethyl Alcohol Level < 10 mg/dL (0-10) Urine Collection Type Unknown Urine Color Niki Urine Clarity Clear Urine pH 6.0 (<5.0-8.0) Urine Specific Norris >=1.030 (1.000-1.030) Urine Protein 30 mg/dL (NEG-TRACE) Urine Glucose (UA) Negative mg/dL (NEG) Urine Ketones (Stick) 15 mg/dL (NEG) Urine Blood Negative (NEG) Urine Nitrite Negative (NEG) Urine Bilirubin Small (NEG) Urine Urobilinogen Dipstick 1.0 mg/dL (0.2 mg/dL) Urine Leukocyte Esterase Negative (NEG) Urine RBC 0 /HPF (0-2) Urine WBC 1-4 /HPF (0-4) Urine Squamous Epithelial Cells Few /LPF Urine Amorphous Sediment Present /HPF Urine Bacteria Few /HPF (0-FEW) Urine Mucus Slight /LPF Urine Opiates Screen Neg (NEG) Urine Methadone Screen Neg (NEG) Urine Barbiturates Neg (NEG) Urine Phencyclidine Screen Neg (NEG) Urine Amphetamine/Methamphetamine Neg (NEG) Urine Benzodiazepines Screen Neg (NEG) Urine Cocaine Screen Neg (NEG) Urine Cannabinoids Screen Neg (NEG) Urine Ethyl Alcohol Neg (NEG) Glucose (Fingerstick) 180 mg/dL (70-99) Test 01/19/20 00:32 White Blood Count 8.2 x10^3/uL (4.0-11.0) Red Blood Count 4.95 x10^6/uL (4.30-5.70) Hemoglobin 14.3 g/dL (13.0-17.5) Hematocrit 42.6 % (39.0-53.0) Mean Corpuscular Volume 86 fL (79-100) Mean Corpuscular Hemoglobin 29 pg (25-35) Mean Corpuscular Hemoglobin Concent 34 g/dL (31-37) Red Cell Distribution Width 16.9 % (11.5-14.5) Platelet Count 357 x10^3/uL (140-400) Neutrophils (%) (Auto) 65 % (31-73) Lymphocytes (%) (Auto) 25 % (24-48) Monocytes (%) (Auto) 7 % (0-9) Eosinophils (%) (Auto) 2 % (0-3) Basophils (%) (Auto) 1 % (0-3) Neutrophils # (Auto) 5.4 x10^3/uL (1.8-7.7) Lymphocytes # (Auto) 2.1 x10^3/uL (1.0-4.8) Monocytes # (Auto) 0.5 x10^3/uL (0.0-1.1) Eosinophils # (Auto) 0.2 x10^3/uL (0.0-0.7) Basophils # (Auto) 0.0 x10^3/uL (0.0-0.2) Sodium Level 135 mmol/L (136-145) Potassium Level 3.6 mmol/L (3.5-5.1) Chloride Level 100 mmol/L (98-107) Carbon Dioxide Level 26 mmol/L (21-32) Anion Gap 9 (6-14) Blood Urea Nitrogen 20 mg/dL (8-26) Creatinine 1.3 mg/dL (0.7-1.3) Estimated GFR (Cockcroft-Gault) 59.7 Glucose Level 191 mg/dL (70-99) Calcium Level 8.5 mg/dL (8.5-10.1) Phosphorus Level 2.3 mg/dL (2.6-4.7) Magnesium Level 2.6 mg/dL (1.8-2.4) Troponin I Quantitative < 0.017 ng/mL (0.000-0.055) Assessment and Plan Assessmemt and Plan Problems Medical Problems: (1) Chest pain Status: Acute (2) Epigastric pain Status: Acute (3) ETOHism Status: Acute (4) Hyperglycemia Status: Acute (5) Pancreatitis Status: Acute Comment Review of Relevant I have reviewed the following items franklyn (where applicable) has been applied. Medications: Current Medications Medications (Trade) Dose Ordered Sig/Yamile Route PRN Reason Start Time Stop Time Status Last Admin Dose Admin Aspirin (Yossi Aspirin) 325 mg 1X ONCE PO 01/18/20 16:30 01/18/20 16:34 DC 01/18/20 17:01 Nitroglycerin (Nitrostat) 0.4 mg PRN Q5MIN PRN SL CP RATING > 1/10 01/18/20 16:30 01/19/20 16:29 01/18/20 17:49 Morphine Sulfate (Morphine Sulfate) 4 mg PRN Q15MIN PRN IV/SQ PAIN GREATER THAN 3/10 01/18/20 16:30 01/19/20 16:29 01/18/20 20:10 Multi-Ingredient Mouthwash/Gargle (Gi Cocktail) 20 ml 1X ONCE SWSW 01/18/20 16:30 01/18/20 16:34 DC 01/18/20 17:02 Iohexol (Omnipaque 350 Mg/ml) 100 ml 1X ONCE IV 01/18/20 17:45 01/18/20 17:46 DC 01/18/20 17:54 Ondansetron HCl (Zofran) 4 mg PRN Q6HRS PRN IVP NAUSEA/VOMITING 01/18/20 19:00 01/19/20 05:22 Sodium Chloride 1,000 ml @ 100 mls/hr Q10H IV 01/18/20 18:59 01/19/20 05:34 Acetaminophen (Tylenol) 650 mg PRN Q4HRS PRN PO TEMP OVER 100.4F OR MILD PAIN 01/18/20 19:00 01/19/20 05:20 Morphine Sulfate (Morphine Sulfate) 4 mg PRN Q2HR PRN IV PAIN 01/18/20 19:30 01/19/20 19:29 01/19/20 05:23 Sodium Chloride 1,000 ml @ 125 mls/hr 1X ONCE IV 01/18/20 19:30 01/19/20 03:29 DC 01/18/20 23:28 Lorazepam (Ativan) 0.5 mg PRN Q8HRS PRN PO ANXIETY 01/18/20 20:30 01/18/20 23:24 Clonidine HCl (Catapres) 0.2 mg 1X STAT PO 01/18/20 21:20 01/18/20 21:22 DC 01/18/20 23:24 Justifications for Admission Abdominal Pain Indications Is NPO status required?: Yes Justification for admission: Patient may require to be NPO for greater 24hours making it medically necessary to manage patient as inpatient. Other Justification JOSE APPIAH MD Jan 19, 2020 08:03
[2020-01-19] MEDS ORDERED: ENOXAPARIN 30 MG/0.3 ML SYRINGE. SQ SCH (09:00)
--- NOTE | 2020-01-19 09:15 | PDOC2 ---
MAYNOR LUCAS MASTER YACHT 01/19/20 0915: CARDIAC CONSULT DATE OF CONSULT Date of Consult DATE: 01/19/20 TIME: 09:00 REASON FOR CONSULT Reason for Consult: Chest pain REFERRING PHYSICIAN Referring Physician: Wilfredo SOURCE Source: Chart review, Patient HISTORY OF PRESENT ILLNESS HISTORY OF PRESENT ILLNESS This is a pleasant 44 yo male admitted for complains of chest pain. His chest pain is around subcostal region left and right and sharp. This became progressively painful yesterday to a point of him being sweaty and little nausea. No SOA palpitations and no vomiting. No fever or chills. 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 His pain just started yesterday. He has DM and HTN but does not take any antilipemics. No recent falls, injury or MVA. He did gain some wt in the last 6 months but could not clarify how much. His BG range from 115 to 200s. Verbalized that he takes care of his DM diet. He had a stress test about a yr ago and tolerated treadmill. PAST MEDICAL HISTORY Cardiovascular: HTN, Hyperlipidemia Pulmonary: No pertinent hx CENTRAL NERVOUS SYSTEM: Other (No pertinent history) GI: GERD Heme/Onc: No pertinent hx Hepatobiliary: No pertinent hx Psych: No pertinent hx Musculoskeletal: low back pain, Osteoarthritis Rheumatologic: No pertinent hx Infectious disease: No pertinent hx ENT: No pertinent hx Renal/: No pertinent hx Endocrine: Diabetes (insulin dependent) Dermatology: No pertinent hx PAST SURGICAL HISTORY Past Surgical History: Arthroscopy (right knee and partial left knee replacement), Other (multiple neck and lower back surgeries with fusion) FAMILY HISTORY Family History Grandmother with DM, no family hx of CAD SOCIAL HISTORY Smoke: No ALCOHOL: occassional Drugs: None Lives: with Family CURRENT MEDICATIONS CURRENT MEDICATIONS Current Medications Medications (Trade) Dose Ordered Sig/Yamile Route PRN Reason Start Time Stop Time Status Last Admin Dose Admin Aspirin (Yossi Aspirin) 325 mg 1X ONCE PO 01/18/20 16:30 01/18/20 16:34 DC 01/18/20 17:01 Nitroglycerin (Nitrostat) 0.4 mg PRN Q5MIN PRN SL CP RATING > 04/1001/18/20 16:30 01/19/20 16:29 01/18/20 17:49 Morphine Sulfate (Morphine Sulfate) 4 mg PRN Q15MIN PRN IV/SQ PAIN GREATER THAN 3/10 01/18/20 16:30 01/19/20 16:29 01/18/20 20:10 Multi-Ingredient Mouthwash/Gargle (Gi Cocktail) 20 ml 1X ONCE SWSW 01/18/20 16:30 01/18/20 16:34 DC 01/18/20 17:02 Iohexol (Omnipaque 350 Mg/ml) 100 ml 1X ONCE IV 01/18/20 17:45 01/18/20 17:46 DC 01/18/20 17:54 Ondansetron HCl (Zofran) 4 mg PRN Q6HRS PRN IVP NAUSEA/VOMITING 01/18/20 19:00 01/19/20 05:22 Sodium Chloride 1,000 ml @ 100 mls/hr Q10H IV 01/18/20 18:59 01/19/20 05:34 Acetaminophen (Tylenol) 650 mg PRN Q4HRS PRN PO TEMP OVER 100.4F OR MILD PAIN 01/18/20 19:00 01/19/20 05:20 Morphine Sulfate (Morphine Sulfate) 4 mg PRN Q2HR PRN IV PAIN 01/18/20 19:30 01/19/20 19:29 01/19/20 05:23 Sodium Chloride 1,000 ml @ 125 mls/hr 1X ONCE IV 01/18/20 19:30 01/19/20 03:29 DC 01/18/20 23:28 Lorazepam (Ativan) 0.5 mg PRN Q8HRS PRN PO ANXIETY 01/18/20 20:30 01/18/20 23:24 Clonidine HCl (Catapres) 0.2 mg 1X STAT PO 01/18/20 21:20 01/18/20 21:22 DC 01/18/20 23:24 ALLERGIES ALLERGIES: Coded Allergies: No Known Drug Allergies (Unverified , 09/21/15) ROS Review of System 14 point ROS evaluated with pertinent positives noted per HPI PHYSICAL EXAM General: Alert, Oriented X3, Cooperative, No acute distress HEENT: Atraumatic, Mucous membr. moist/pink Lungs: Clear to auscultation, Normal air movement Heart: Regular rate (SR), Normal S1, Normal S2, No murmurs Abdomen: Soft, No tenderness, Other (obese) Extremities: No cyanosis Skin: No breakdown, No significant lesion Neuro: Normal speech, Sensation intact Psych/Mental Status: Mental status NL, Mood NL MUSCULOSKELETAL: Osteoarthritic changes both hands VITALS/I&O VITALS/I&O: Vital Signs Date Time Temp Pulse Resp B/P (MAP) Pulse Ox O2 Delivery O2 Flow Rate FiO2 01/19/20 07:00 97.9 63 18 110/73 (85) 96 Room Air 97.9 I & O 01/18/20 01/18/20 01/19/20 15:00 23:00 07:00 Intake Total 1000 ml Balance 1000 ml LABS Lab: Laboratory Tests Test 01/18/20 16:44 01/18/20 19:05 01/18/20 21:10 01/18/20 22:19 White Blood Count 8.5 x10^3/uL (4.0-11.0) Red Blood Count 5.29 x10^6/uL (4.30-5.70) Hemoglobin 15.4 g/dL (13.0-17.5) Hematocrit 45.2 % (39.0-53.0) Mean Corpuscular Volume 85 fL (79-100) Mean Corpuscular Hemoglobin 29 pg (25-35) Mean Corpuscular Hemoglobin Concent 34 g/dL (31-37) Red Cell Distribution Width 16.7 % (11.5-14.5) H Platelet Count 382 x10^3/uL (140-400) Neutrophils (%) (Auto) 74 % (31-73) H Lymphocytes (%) (Auto) 19 % (24-48) L Monocytes (%) (Auto) 6 % (0-9) Eosinophils (%) (Auto) 1 % (0-3) Basophils (%) (Auto) 1 % (0-3) Neutrophils # (Auto) 6.3 x10^3/uL (1.8-7.7) Lymphocytes # (Auto) 1.6 x10^3/uL (1.0-4.8) Monocytes # (Auto) 0.5 x10^3/uL (0.0-1.1) Eosinophils # (Auto) 0.1 x10^3/uL (0.0-0.7) Basophils # (Auto) 0.1 x10^3/uL (0.0-0.2) Prothrombin Time 12.0 SEC (11.7-14.0) Prothrombin Time INR 0.9 (0.8-1.1) D-Dimer (Belle) 0.66 ug/mlFEU (0.00-0.50) H Sodium Level 132 mmol/L (136-145) L Potassium Level 3.5 mmol/L (3.5-5.1) Chloride Level 95 mmol/L (98-107) L Carbon Dioxide Level 18 mmol/L (21-32) L Anion Gap 19 (6-14) H Blood Urea Nitrogen 21 mg/dL (8-26) Creatinine 1.2 mg/dL (0.7-1.3) Estimated GFR (Cockcroft-Gault) 65.5 BUN/Creatinine Ratio 18 (6-20) Glucose Level 204 mg/dL (70-99) H Calcium Level 8.8 mg/dL (8.5-10.1) Magnesium Level 2.6 mg/dL (1.8-2.4) H Total Bilirubin 1.5 mg/dL (0.2-1.0) H Aspartate Amino Transferase (AST) 37 U/L (15-37) Alanine Aminotransferase (ALT) 48 U/L (16-63) Alkaline Phosphatase 141 U/L (46-116) H Troponin I Quantitative < 0.017 ng/mL (0.000-0.055) < 0.017 ng/mL (0.000-0.055) XI-Nfu-C-Type Natriuretic Peptide 403 pg/mL (0-124) H Total Protein 7.2 g/dL (6.4-8.2) Albumin 3.1 g/dL (3.4-5.0) L Albumin/Globulin Ratio 0.8 (1.0-1.7) L Triglycerides Level 2247 mg/dL (0-150) H Cholesterol Level 274 mg/dL (0-200) H LDL Cholesterol, Calculated mg/dL (0-100) VLDL Cholesterol, Calculated 449 mg/dL (0-40) H Non-HDL Cholesterol Calculated mg/dL (0-129) HDL Cholesterol mg/dL (40-60) Cholesterol/HDL Ratio Lipase 629 U/L (73-393) H Thyroid Stimulating Hormone (TSH) 0.882 uIU/mL (0.358-3.74) Ethyl Alcohol Level < 10 mg/dL (0-10) Urine Collection Type Unknown Urine Color Niki Urine Clarity Clear Urine pH 6.0 (<5.0-8.0) Urine Specific [place] >=1.030 (1.000-1.030) Urine Protein 30 mg/dL (NEG-TRACE) Urine Glucose (UA) Negative mg/dL (NEG) Urine Ketones (Stick) 15 mg/dL (NEG) Urine Blood Negative (NEG) Urine Nitrite Negative (NEG) Urine Bilirubin Small (NEG) Urine Urobilinogen Dipstick 1.0 mg/dL (0.2 mg/dL) Urine Leukocyte Esterase Negative (NEG) Urine RBC 0 /HPF (0-2) Urine WBC 1-4 /HPF (0-4) Urine Squamous Epithelial Cells Few /LPF Urine Amorphous Sediment Present /HPF Urine Bacteria Few /HPF (0-FEW) Urine Mucus Slight /LPF Urine Opiates Screen Neg (NEG) Urine Methadone Screen Neg (NEG) Urine Barbiturates Neg (NEG) Urine Phencyclidine Screen Neg (NEG) Urine Amphetamine/Methamphetamine Neg (NEG) Urine Benzodiazepines Screen Neg (NEG) Urine Cocaine Screen Neg (NEG) Urine Cannabinoids Screen Neg (NEG) Urine Ethyl Alcohol Neg (NEG) Glucose (Fingerstick) 180 mg/dL (70-99) H Test 01/19/20 00:32 01/19/20 08:11 White Blood Count 8.2 x10^3/uL (4.0-11.0) Red Blood Count 4.95 x10^6/uL (4.30-5.70) Hemoglobin 14.3 g/dL (13.0-17.5) Hematocrit 42.6 % (39.0-53.0) Mean Corpuscular Volume 86 fL (79-100) Mean Corpuscular Hemoglobin 29 pg (25-35) Mean Corpuscular Hemoglobin Concent 34 g/dL (31-37) Red Cell Distribution Width 16.9 % (11.5-14.5) H Platelet Count 357 x10^3/uL (140-400) Neutrophils (%) (Auto) 65 % (31-73) Lymphocytes (%) (Auto) 25 % (24-48) Monocytes (%) (Auto) 7 % (0-9) Eosinophils (%) (Auto) 2 % (0-3) Basophils (%) (Auto) 1 % (0-3) Neutrophils # (Auto) 5.4 x10^3/uL (1.8-7.7) Lymphocytes # (Auto) 2.1 x10^3/uL (1.0-4.8) Monocytes # (Auto) 0.5 x10^3/uL (0.0-1.1) Eosinophils # (Auto) 0.2 x10^3/uL (0.0-0.7) Basophils # (Auto) 0.0 x10^3/uL (0.0-0.2) Sodium Level 135 mmol/L (136-145) L Potassium Level 3.6 mmol/L (3.5-5.1) Chloride Level 100 mmol/L (98-107) Carbon Dioxide Level 26 mmol/L (21-32) Anion Gap 9 (6-14) Blood Urea Nitrogen 20 mg/dL (8-26) Creatinine 1.3 mg/dL (0.7-1.3) Estimated GFR (Cockcroft-Gault) 59.7 Glucose Level 191 mg/dL (70-99) H Calcium Level 8.5 mg/dL (8.5-10.1) Phosphorus Level 2.3 mg/dL (2.6-4.7) L Magnesium Level 2.6 mg/dL (1.8-2.4) H Creatine Kinase 184 U/L (39-308) Troponin I Quantitative < 0.017 ng/mL (0.000-0.055) Glucose (Fingerstick) 195 mg/dL (70-99) H Laboratory Tests 01/18/20 16:44 01/19/20 00:32 Laboratory Tests 01/18/20 16:44 01/19/20 00:32 ASSESSMENT/PLAN ASSESSMENT/PLAN 1. Atypical CP: suspect due to pancreatitis 2. Acute pancreatitis: induced by high TG 3. Severe HT 4. HTN: controlled 5. Morbid obesity 6. Suspect MCKOY 7. DM: insulin dependent Recommendations 1. Consult GI 2. Would not be able to place fibrates due to pancreatitis. Antilipemics pending GI input. 3. Await GI input, and may need to consider nephrology consult for apharesis option 4. Resume BP meds per trend 5. Strict diet modification and BG control, consult dietitian 6. Would consider for outpt stress test given his significnat cardiac risk fac tors HARMONY SINGH MD 01/19/20 1742: CARDIAC CONSULT ASSESSMENT/PLAN ASSESSMENT/PLAN The patient was seen and interviewed as well as examined at the bedside. The chart was reviewed. The case was discussed. Agree with the plan of care. MAYNOR LUCAS APRN Jan 19, 2020 09:15 HARMONY SINGH MD Jan 19, 2020 17:42
[2020-01-19] MEDS: POTASSIUM CL 20MEQ D5-0.45NACL 1,000 ML IV SCH ×2 (09:18→19:58)
[2020-01-19] MEDS: INSULIN LISPRO 300 UNITS/3 ML VIAL. SQ SCH ×3 (09:35→17:00)
--- NOTE | 2020-01-19 10:10 | PDOC2 ---
GI CONSULT Date of Service: DATE: 01/19/20 TIME: 10:09 Reason For Consult: pancreatitis HPI: HPI: 44 y/o male who we have seen in the past. To ER w/ substernal pain that began while sitting at his desk yesterday. Also had discomfort in epigastrium and upper sides of abdomen. No radiation to back. We saw him in 2018 for pancreatitis possibly related to alcohol and/or hypertriglyceridemia. Issues w/ resp failure (required intubation) and DENISHA then. Also had C Diff treated w/ vanco. H/o GERD controlled w/ Prevacid QD. No dysphagia, n/v, diarrhea, constipation, hematochezia, melena, or weight loss. EGD in 1997 w/ reflux. Colonoscopy in 1999 w/ anal fissure. No GB history - no gallstones on US in 2018. Hepatic steatosis on imaging. No PUD history. Takes Tramadol and PRN ibuprofen. PMH: PMH: HTN, DM, HLD, anxiety, depression, chronic back pain, ascending aortic aneurysm, nephrolithiasis, epidural abscess bilateral knee surgeries, back surgeries, neck surgery FH: Family History: No pertinent hx Social History: Smoke: No (+chewing tobacco) ALCOHOL: other (2-3 beers during football games - heavier in the past) Drugs: None (+marijunana 2018, negative now) ROS: GEN: Denies fevers, chills, sweats HEENT: Denies blurred vision, sore throat CV: Denies chest pain RESP: Denies shortness of air, cough GI: Per HPI : Denies hematuria, dysuria ENDO: Denies weight changes NEURO: Denies confusion, dizziness MSK: neck and back pain - chronic SKIN: Denies jaundice, pruritus Vitals: Vitals: Vital Signs Date Time Temp Pulse Resp B/P (MAP) Pulse Ox O2 Delivery O2 Flow Rate FiO2 01/19/20 09:29 96 Room Air 01/19/20 07:00 97.9 63 18 110/73 (85) 97.9 Labs: Labs: Laboratory Tests Test 01/18/20 16:44 01/18/20 19:05 01/18/20 21:10 01/18/20 22:19 White Blood Count 8.5 x10^3/uL (4.0-11.0) Red Blood Count 5.29 x10^6/uL (4.30-5.70) Hemoglobin 15.4 g/dL (13.0-17.5) Hematocrit 45.2 % (39.0-53.0) Mean Corpuscular Volume 85 fL (79-100) Mean Corpuscular Hemoglobin 29 pg (25-35) Mean Corpuscular Hemoglobin Concent 34 g/dL (31-37) Red Cell Distribution Width 16.7 % (11.5-14.5) Platelet Count 382 x10^3/uL (140-400) Neutrophils (%) (Auto) 74 % (31-73) Lymphocytes (%) (Auto) 19 % (24-48) Monocytes (%) (Auto) 6 % (0-9) Eosinophils (%) (Auto) 1 % (0-3) Basophils (%) (Auto) 1 % (0-3) Neutrophils # (Auto) 6.3 x10^3/uL (1.8-7.7) Lymphocytes # (Auto) 1.6 x10^3/uL (1.0-4.8) Monocytes # (Auto) 0.5 x10^3/uL (0.0-1.1) Eosinophils # (Auto) 0.1 x10^3/uL (0.0-0.7) Basophils # (Auto) 0.1 x10^3/uL (0.0-0.2) Prothrombin Time 12.0 SEC (11.7-14.0) Prothromb Time International Ratio 0.9 (0.8-1.1) D-Dimer (Belle) 0.66 ug/mlFEU (0.00-0.50) Sodium Level 132 mmol/L (136-145) Potassium Level 3.5 mmol/L (3.5-5.1) Chloride Level 95 mmol/L (98-107) Carbon Dioxide Level 18 mmol/L (21-32) Anion Gap 19 (6-14) Blood Urea Nitrogen 21 mg/dL (8-26) Creatinine 1.2 mg/dL (0.7-1.3) Estimated GFR (Cockcroft-Gault) 65.5 BUN/Creatinine Ratio 18 (6-20) Glucose Level 204 mg/dL (70-99) Calcium Level 8.8 mg/dL (8.5-10.1) Magnesium Level 2.6 mg/dL (1.8-2.4) Total Bilirubin 1.5 mg/dL (0.2-1.0) Aspartate Amino Transf (AST/SGOT) 37 U/L (15-37) Alanine Aminotransferase (ALT/SGPT) 48 U/L (16-63) Alkaline Phosphatase 141 U/L (46-116) Troponin I Quantitative < 0.017 ng/mL (0.000-0.055) < 0.017 ng/mL (0.000-0.055) WN-Xlm-I-Type Natriuretic Peptide 403 pg/mL (0-124) Total Protein 7.2 g/dL (6.4-8.2) Albumin 3.1 g/dL (3.4-5.0) Albumin/Globulin Ratio 0.8 (1.0-1.7) Triglycerides Level 2247 mg/dL (0-150) Cholesterol Level 274 mg/dL (0-200) LDL Cholesterol, Calculated mg/dL (0-100) VLDL Cholesterol, Calculated 449 mg/dL (0-40) Non-HDL Cholesterol Calculated mg/dL (0-129) HDL Cholesterol mg/dL (40-60) Cholesterol/HDL Ratio Lipase 629 U/L (73-393) Thyroid Stimulating Hormone (TSH) 0.882 uIU/mL (0.358-3.74) Ethyl Alcohol Level < 10 mg/dL (0-10) Urine Collection Type Unknown Urine Color Niki Urine Clarity Clear Urine pH 6.0 (<5.0-8.0) Urine Specific [place] >=1.030 (1.000-1.030) Urine Protein 30 mg/dL (NEG-TRACE) Urine Glucose (UA) Negative mg/dL (NEG) Urine Ketones (Stick) 15 mg/dL (NEG) Urine Blood Negative (NEG) Urine Nitrite Negative (NEG) Urine Bilirubin Small (NEG) Urine Urobilinogen Dipstick 1.0 mg/dL (0.2 mg/dL) Urine Leukocyte Esterase Negative (NEG) Urine RBC 0 /HPF (0-2) Urine WBC 1-4 /HPF (0-4) Urine Squamous Epithelial Cells Few /LPF Urine Amorphous Sediment Present /HPF Urine Bacteria Few /HPF (0-FEW) Urine Mucus Slight /LPF Urine Opiates Screen Neg (NEG) Urine Methadone Screen Neg (NEG) Urine Barbiturates Neg (NEG) Urine Phencyclidine Screen Neg (NEG) Urine Amphetamine/Methamphetamine Neg (NEG) Urine Benzodiazepines Screen Neg (NEG) Urine Cocaine Screen Neg (NEG) Urine Cannabinoids Screen Neg (NEG) Urine Ethyl Alcohol Neg (NEG) Glucose (Fingerstick) 180 mg/dL (70-99) Test 01/19/20 00:32 01/19/20 08:11 White Blood Count 8.2 x10^3/uL (4.0-11.0) Red Blood Count 4.95 x10^6/uL (4.30-5.70) Hemoglobin 14.3 g/dL (13.0-17.5) Hematocrit 42.6 % (39.0-53.0) Mean Corpuscular Volume 86 fL (79-100) Mean Corpuscular Hemoglobin 29 pg (25-35) Mean Corpuscular Hemoglobin Concent 34 g/dL (31-37) Red Cell Distribution Width 16.9 % (11.5-14.5) Platelet Count 357 x10^3/uL (140-400) Neutrophils (%) (Auto) 65 % (31-73) Lymphocytes (%) (Auto) 25 % (24-48) Monocytes (%) (Auto) 7 % (0-9) Eosinophils (%) (Auto) 2 % (0-3) Basophils (%) (Auto) 1 % (0-3) Neutrophils # (Auto) 5.4 x10^3/uL (1.8-7.7) Lymphocytes # (Auto) 2.1 x10^3/uL (1.0-4.8) Monocytes # (Auto) 0.5 x10^3/uL (0.0-1.1) Eosinophils # (Auto) 0.2 x10^3/uL (0.0-0.7) Basophils # (Auto) 0.0 x10^3/uL (0.0-0.2) Sodium Level 135 mmol/L (136-145) Potassium Level 3.6 mmol/L (3.5-5.1) Chloride Level 100 mmol/L (98-107) Carbon Dioxide Level 26 mmol/L (21-32) Anion Gap 9 (6-14) Blood Urea Nitrogen 20 mg/dL (8-26) Creatinine 1.3 mg/dL (0.7-1.3) Estimated GFR (Cockcroft-Gault) 59.7 Glucose Level 191 mg/dL (70-99) Calcium Level 8.5 mg/dL (8.5-10.1) Phosphorus Level 2.3 mg/dL (2.6-4.7) Magnesium Level 2.6 mg/dL (1.8-2.4) Creatine Kinase 184 U/L (39-308) Troponin I Quantitative < 0.017 ng/mL (0.000-0.055) Glucose (Fingerstick) 195 mg/dL (70-99) Allergies: Coded Allergies: No Known Drug Allergies (Unverified , 09/21/15) Medications: Current Medications Medications (Trade) Dose Ordered Sig/Yamile Route PRN Reason Start Time Stop Time Status Last Admin Dose Admin Aspirin (Yossi Aspirin) 325 mg 1X ONCE PO 01/18/20 16:30 01/18/20 16:34 DC 01/18/20 17:01 Nitroglycerin (Nitrostat) 0.4 mg PRN Q5MIN PRN SL CP RATING > 1/10 01/18/20 16:30 01/19/20 16:29 01/18/20 17:49 Morphine Sulfate (Morphine Sulfate) 4 mg PRN Q15MIN PRN IV/SQ PAIN GREATER THAN 3/10 01/18/20 16:30 01/19/20 16:29 01/18/20 20:10 Multi-Ingredient Mouthwash/Gargle (Gi Cocktail) 20 ml 1X ONCE SWSW 01/18/20 16:30 01/18/20 16:34 DC 01/18/20 17:02 Iohexol (Omnipaque 350 Mg/ml) 100 ml 1X ONCE IV 01/18/20 17:45 01/18/20 17:46 DC 01/18/20 17:54 Ondansetron HCl (Zofran) 4 mg PRN Q6HRS PRN IVP NAUSEA/VOMITING 01/18/20 19:00 01/19/20 05:22 Insulin Human Lispro (HumaLOG) 0-5 UNITS TIDWMEALS SQ 01/19/20 08:00 01/19/20 09:35 Sodium Chloride 1,000 ml @ 100 mls/hr Q10H IV 01/18/20 18:59 01/19/20 05:34 Acetaminophen (Tylenol) 650 mg PRN Q4HRS PRN PO TEMP OVER 100.4F OR MILD PAIN 01/18/20 19:00 01/19/20 05:20 Enoxaparin Sodium (Lovenox 30mg Syringe) 30 mg DAILY SQ 01/19/20 09:00 01/19/20 09:16 Morphine Sulfate (Morphine Sulfate) 4 mg PRN Q2HR PRN IV PAIN 01/18/20 19:30 01/19/20 19:29 01/19/20 08:59 Sodium Chloride 1,000 ml @ 125 mls/hr 1X ONCE IV 01/18/20 19:30 01/19/20 03:29 DC 01/18/20 23:28 Lorazepam (Ativan) 0.5 mg PRN Q8HRS PRN PO ANXIETY 01/18/20 20:30 01/18/20 23:24 Clonidine HCl (Catapres) 0.2 mg 1X STAT PO 01/18/20 21:20 01/18/20 21:22 DC 01/18/20 23:24 Potassium Chloride/Dextrose/ Sod Cl 1,000 ml @ 100 mls/hr Q10H IV 01/19/20 08:00 01/19/20 09:18 Imaging: Imaging: CXR IMPRESSION: There is no acute cardiopulmonary process. Chest CTA Impression: Limited contrast opacification of the pulmonary arteries limiting the study is discussed above There is no definite CT evidence of pulmonary embolism. CT A/P IMPRESSION: 1. Inflammatory changes surrounding the pancreas, may relate to pancreatitis. 2. Diffuse hepatic steatosis. PE: GEN: NAD HEENT: Atraumatic, PERRL LUNGS: CTAB HEART: RRR ABD: quiet BS, soft, epigastric discomfort - mild EXTREMITY: No edema SKIN: No rashes, no jaundice NEURO/PSYCH: A & O 3 A/P: A/P: Recurrent pancreatitis - second episode (first in 2018) - possibly 2/2 alcohol/e levated triglycerides then Hypertriglyceridemia (2246) GERD - on PPI CRC screen - normal except anal fissure in 1999 H/o C Diff Hepatic steatosis - on imaging DM - A1c pending Chronic pain on PRN NSAIDs - defer to primary H/o alcohol overuse - says less now -- D/w cardiology - avoiding fenofibrate and they have asked nephrology about apharesis. Reviewed primary note - plans for insulin drip and outpt Rx fish oil. For now, okay to try clears per GI. ?need to reimage GB - no stones in 2018 on US Continue PPI. Probably would be best to avoid alcohol altogether - I told him so. MARILYN VASQUEZ Jan 19, 2020 10:09
[2020-01-19 11:00] VITALS: BP 112/72
[2020-01-19] MEDS ORDERED: OMEG1CAP2 PO (13:46)
--- NOTE | 2020-01-19 14:34 | NUR ---
Have reviewed documentation completed by corporate communications intern and made changes as needed/appropriate
[2020-01-19 15:00] VITALS: BP 113/71
--- NOTE | 2020-01-19 15:19 | NUR ---
SS following for discharge planning. SS reviewed pt chart and discussed with pt RN. Pt is currently on room air. Pt on clear liquid diet. SS will continue to follow for discharge planning.
[2020-01-19] MEDS ORDERED: PROCHLORPERAZINE 10 MG/2 ML VIAL. IV PRN (15:30)
[2020-01-19] MEDS: DULoxetine HCL 30 MG CAPSULE.DR PO SCH (18:31)
[2020-01-19] MEDS: traMADol 50 MG TABLET PO PRN (18:32)
[2020-01-19 19:26] VITALS: BP 140/89
[2020-01-19] MEDS ORDERED: LORA0.5T96 PO (20:01)
[2020-01-19] MEDS: LORazepam 0.5 MG TABLET PO PRN (20:05)
[2020-01-19] MEDS ORDERED: ENOXAPARIN 40 MG/0.4 ML SYRINGE. SQ SCH (21:00)
--- NOTE | 2020-01-19 21:05 | NUR ---
Pt removed tele patches at beginning of shift and refuses to put back on. Explained to patient the reasoning for tele monitoring, pt is aware of risk and benefit, still refusing. Will continue to monitor.
[2020-01-19 22:31] VITALS: BP 118/65
[2020-01-20] MEDS: traMADol 50 MG TABLET PO PRN ×2 (00:40→08:02)
[2020-01-20 00:58] LABS: ALBUMIN/GLOBULIN RATIO 0.9 (1.0-1.7); CALCIUM 8.3 mg/dL (8.5-10.1); CREATININE 0.9 mg/dL (0.7-1.3); GFR 91.3; POTASSIUM 3.9 mmol/L (3.5-5.1); TOTAL BILIRUBIN 1.2 mg/dL (0.2-1.0); TOTAL PROTEIN 6.5 g/dL (6.4-8.2)
[2020-01-20 01:09] LABS: LIPASE 596 U/L (73-393); TRIGLYCERIDES 600 mg/dL (0-150)
[2020-01-20 02:11] LABS: HEMOGLOBIN A1C 6.7 % (4.8-5.6)
[2020-01-20] MEDS: POTASSIUM CL 20MEQ D5-0.45NACL 1,000 ML IV SCH (02:36)
[2020-01-20 02:45] VITALS: BP 135/88
[2020-01-20 06:35] VITALS: BP 123/90
[2020-01-20] MEDS: INSULIN LISPRO 300 UNITS/3 ML VIAL. SQ SCH ×2 (08:00→12:30)
[2020-01-20] MEDS: DULoxetine HCL 30 MG CAPSULE.DR PO SCH (08:02)
[2020-01-20] MEDS: LORazepam 0.5 MG TABLET PO PRN (08:02)
[2020-01-20] MEDS: PANTOPRAZOLE 40 MG TABLET.DR. PO SCH (08:02)
[2020-01-20] MEDS ORDERED: IV NORMAL SALINE 1000ML BAG 1,000 ML IV SCH (09:00)
[2020-01-20] MEDS ORDERED: INSULIN GLARGINE SYRINGE. SQ SCH (09:00)
--- NOTE | 2020-01-20 09:24 | PDOC ---
Date of Service: DATE: 01/20/20 TIME: 09:20 Subjective: Subjective: Pain resolved, tolerating regular diet. Objective: Vital Signs: Vital Signs Date Time Temp Pulse Resp B/P (MAP) Pulse Ox O2 Delivery O2 Flow Rate FiO2 01/20/20 08:02 98 Room Air 01/20/20 06:35 97.4 85 18 123/90 (101) 97.4 Labs: Laboratory Tests Test 01/19/20 11:58 01/19/20 12:56 01/19/20 14:17 01/19/20 15:23 Glucose (Fingerstick) 202 mg/dL 205 mg/dL 178 mg/dL 129 mg/dL Test 01/19/20 16:26 01/19/20 17:31 01/19/20 18:38 01/19/20 19:42 Glucose (Fingerstick) 154 mg/dL 184 mg/dL 166 mg/dL 192 mg/dL Test 01/19/20 20:43 01/19/20 20:46 01/19/20 22:02 01/19/20 23:06 Lactic Acid Level 2.9 mmol/L Glucose (Fingerstick) 141 mg/dL 116 mg/dL 128 mg/dL Test 01/20/20 00:12 01/20/20 00:23 01/20/20 01:17 01/20/20 02:21 Glucose (Fingerstick) 152 mg/dL 183 mg/dL 140 mg/dL Sodium Level 138 mmol/L Potassium Level 3.9 mmol/L Chloride Level 102 mmol/L Carbon Dioxide Level 27 mmol/L Anion Gap 9 Blood Urea Nitrogen 11 mg/dL Creatinine 0.9 mg/dL Estimated GFR (Cockcroft-Gault) 91.3 BUN/Creatinine Ratio 12 Glucose Level 152 mg/dL Lactic Acid Level 0.7 mmol/L Calcium Level 8.3 mg/dL Total Bilirubin 1.2 mg/dL Aspartate Amino Transf (AST/SGOT) 93 U/L Alanine Aminotransferase (ALT/SGPT) 88 U/L Alkaline Phosphatase 117 U/L Total Protein 6.5 g/dL Albumin 3.0 g/dL Albumin/Globulin Ratio 0.9 Triglycerides Level 600 mg/dL Lipase 596 U/L Test 01/20/20 03:25 01/20/20 04:17 01/20/20 05:17 01/20/20 06:21 Glucose (Fingerstick) 118 mg/dL 160 mg/dL 166 mg/dL 135 mg/dL Test 01/20/20 07:20 Glucose (Fingerstick) 109 mg/dL PE: GEN: NAD LUNGS: CTAB HEART: RRR ABD: quiet BS, non-tender NEURO/PSYCH: A & O 3 A/P: Recurrent pancreatitis - noted on CT w/ mildly elevated lipase - abd pain resolved Hypertriglyceridemia - better, s/p IV insulin Mildly elevated LFTs - fluctuating Hepatic steatosis, h/o heavy alcohol use (less now), DM (A1c 6.7) -- Okay to DC per GI. Can monitor LFTs as outpt. Treat hypertriglyceridemia. Avoid alcohol. Encouraged healthy weight/lifest yle. Justicifation of Admission Dx: Justifications for Admission: Justification of Admission Dx: Yes MARILYN VASQUEZ Jan 20, 2020 09:24
[2020-01-20 11:00] VITALS: BP 106/79
--- NOTE | 2020-01-20 13:29 | NUR ---
SS following up with discharge planning. SS reviewed pt chart and discussed with pt RN. Pt is currently on room air. Cardiology and GI signed off. Discharge to home today. SS will continue to follow as needed.
--- NOTE | 2020-01-20 13:32 | PDOC ---
[employer] PROGRESS NOTE Date of Service DOS: DATE: 01/20/20 TIME: 13:31 Chief Complaint Chief Complaint Acute chest pain concerning for pancreatitis versus NSTEMI Elevated lipase Acute electrolyte abnormalitieshyponatremia, hypochloremia due to volume depletion AGMA Morbid obesity Diabetes mellitus type 2 insulin-dependent HTN HLD anxiety, depression Chronic back pain Ascending aortic aneurysm Hypertriglyceridemia - 2246, needs fish oil and possibly outpatient fenofibrate. Insulin GTT for now. History of Present Illness History of Present Illness Mr White is a 44 yo M with PMHx of DM, HTN, anxiety and morbid Obesity who presents with dull and aching chest/epigastric pain that is reproducible upon pressure. States that is nonradiating and stays in the substernum and is constant. This occurred at rest while he was sitting in his car at work and doing paperwork. There are no alleviating or exacerbating factors. Denies any fevers, shortness of breath, nausea vomiting, diarrhea, syncope, or palpitations. States he has never had this pain before. 01/18: CT abdomen/pelvis reveals pancreatitis. Lipase > 600, triglycerides > 2000. Still with some mild pain, he is asking for diet. No CP or SOB. I have advised him insulin GTT will be the best antilipemic and outpatient prescription fish oil (Vascepa, Lovaza) is indicated for hypertriglyceridemia that is persistent. 01/19: Patient evaluated bedside. He denies any further abdominal pain, nausea, or vomiting. He is tolerated his diet without any pain discussed close follow- up with PCP. Will discharge patient on statin. Monty with RN Vitals/I&O Vitals/I&O: Vital Signs Date Time Temp Pulse Resp B/P (MAP) Pulse Ox O2 Delivery O2 Flow Rate FiO2 01/20/20 11:00 97.7 75 18 106/79 (88) 96 Room Air 97.7 I & O 01/19/20 01/19/20 01/20/20 15:00 23:00 07:00 Intake Total 1000 ml 1000 ml Output Total 0 ml 0 ml 0 ml Balance 0 ml 1000 ml 1000 ml Physical Exam General: Alert, Oriented X3, Cooperative, No acute distress Heart: Regular rate, Normal S1, Normal S2 Lungs: Clear Abdomen: Normal bowel sounds, Soft, Other (LUQ pain) Extremities: No clubbing, No cyanosis Skin: No rashes, No breakdown Labs Labs: Laboratory Tests Test 01/19/20 14:17 01/19/20 15:23 01/19/20 16:26 01/19/20 17:31 Glucose (Fingerstick) 178 mg/dL (70-99) 129 mg/dL (70-99) 154 mg/dL (70-99) 184 mg/dL (70-99) Test 01/19/20 18:38 01/19/20 19:42 01/19/20 20:43 01/19/20 20:46 Glucose (Fingerstick) 166 mg/dL (70-99) 192 mg/dL (70-99) 141 mg/dL (70-99) Lactic Acid Level 2.9 mmol/L (0.4-2.0) Test 01/19/20 22:02 01/19/20 23:06 01/20/20 00:12 01/20/20 00:23 Glucose (Fingerstick) 116 mg/dL (70-99) 128 mg/dL (70-99) 152 mg/dL (70-99) Sodium Level 138 mmol/L (136-145) Potassium Level 3.9 mmol/L (3.5-5.1) Chloride Level 102 mmol/L (98-107) Carbon Dioxide Level 27 mmol/L (21-32) Anion Gap 9 (6-14) Blood Urea Nitrogen 11 mg/dL (8-26) Creatinine 0.9 mg/dL (0.7-1.3) Estimated GFR (Cockcroft-Gault) 91.3 BUN/Creatinine Ratio 12 (6-20) Glucose Level 152 mg/dL (70-99) Lactic Acid Level 0.7 mmol/L (0.4-2.0) Calcium Level 8.3 mg/dL (8.5-10.1) Total Bilirubin 1.2 mg/dL (0.2-1.0) Aspartate Amino Transf (AST/SGOT) 93 U/L (15-37) Alanine Aminotransferase (ALT/SGPT) 88 U/L (16-63) Alkaline Phosphatase 117 U/L (46-116) Total Protein 6.5 g/dL (6.4-8.2) Albumin 3.0 g/dL (3.4-5.0) Albumin/Globulin Ratio 0.9 (1.0-1.7) Triglycerides Level 600 mg/dL (0-150) Lipase 596 U/L (73-393) Test 01/20/20 01:17 01/20/20 02:21 01/20/20 03:25 01/20/20 04:17 Glucose (Fingerstick) 183 mg/dL (70-99) 140 mg/dL (70-99) 118 mg/dL (70-99) 160 mg/dL (70-99) Test 01/20/20 05:17 01/20/20 06:21 01/20/20 07:20 01/20/20 12:07 Glucose (Fingerstick) 166 mg/dL (70-99) 135 mg/dL (70-99) 109 mg/dL (70-99) 179 mg/dL (70-99) Review of Systems Review of Systems: Denies nausea, denies vomiting, denies shellie pain, denies fever, denies chest pain Assessment and Plan Assessmemt and Plan Problems Medical Problems: (1) Chest pain Status: Acute (2) Epigastric pain Status: Acute (3) ETOHism Status: Acute (4) Hyperglycemia Status: Acute (5) Pancreatitis Status: Acute Comment Review of Relevant I have reviewed the following items franklyn (where applicable) has been applied. Medications: Current Medications Medications (Trade) Dose Ordered Sig/Yamile Route PRN Reason Start Time Stop Time Status Last Admin Dose Admin Enoxaparin Sodium (Lovenox 40mg Syringe) 40 mg Q12HR SQ 01/19/20 21:00 01/19/20 20:05 Tramadol HCl (Ultram) 50 mg PRN Q6HRS PRN PO PAIN 01/19/20 18:00 01/20/20 08:02 Duloxetine HCl (Cymbalta) 60 mg DAILY PO 01/19/20 18:00 01/20/20 08:02 Insulin Glargine (Lantus Syringe) 30 unit BID SQ 01/20/20 09:00 01/20/20 10:03 Justifications for Admission Abdominal Pain Indications Is NPO status required?: Yes Justification for admission: Patient may require to be NPO for greater 24hours making it medically necessary to manage patient as inpatient. Other Justification RAPHAEL SANTIAGO MD Jan 20, 2020 13:32
[2020-01-20] MEDS ORDERED: ATOR40TA59 PO (13:34)
--- NOTE | 2020-01-20 13:40 | PDOC3 ---
Discharge Summary Visit Information Date of Admission: Jan 18, 2020 Date of Discharge: Jan 20, 2020 Final Diagnosis Problems Medical Problems: (1) Chest pain Status: Acute (2) Epigastric pain Status: Acute (3) ETOHism Status: Acute (4) Hyperglycemia Status: Acute (5) Pancreatitis Status: Acute Brief Hospital Course Allergies Allergies Coded Allergies Type Severity Reaction Last Updated Verified No Known Drug Allergies 09/21/15 No Vital Signs Vital Signs Date Time Temp Pulse Resp B/P (MAP) Pulse Ox O2 Delivery O2 Flow Rate FiO2 01/20/20 11:00 97.7 75 18 106/79 (88) 96 Room Air 97.7 Lab Results Laboratory Tests Test 01/18/20 16:44 01/18/20 19:05 01/18/20 21:10 01/18/20 22:19 White Blood Count 8.5 x10^3/uL (4.0-11.0) Red Blood Count 5.29 x10^6/uL (4.30-5.70) Hemoglobin 15.4 g/dL (13.0-17.5) Hematocrit 45.2 % (39.0-53.0) Mean Corpuscular Volume 85 fL (79-100) Mean Corpuscular Hemoglobin 29 pg (25-35) Mean Corpuscular Hemoglobin Concent 34 g/dL (31-37) Red Cell Distribution Width 16.7 % (11.5-14.5) Platelet Count 382 x10^3/uL (140-400) Neutrophils (%) (Auto) 74 % (31-73) Lymphocytes (%) (Auto) 19 % (24-48) Monocytes (%) (Auto) 6 % (0-9) Eosinophils (%) (Auto) 1 % (0-3) Basophils (%) (Auto) 1 % (0-3) Neutrophils # (Auto) 6.3 x10^3/uL (1.8-7.7) Lymphocytes # (Auto) 1.6 x10^3/uL (1.0-4.8) Monocytes # (Auto) 0.5 x10^3/uL (0.0-1.1) Eosinophils # (Auto) 0.1 x10^3/uL (0.0-0.7) Basophils # (Auto) 0.1 x10^3/uL (0.0-0.2) Prothrombin Time 12.0 SEC (11.7-14.0) Prothromb Time International Ratio 0.9 (0.8-1.1) D-Dimer (Belle) 0.66 ug/mlFEU (0.00-0.50) Sodium Level 132 mmol/L (136-145) Potassium Level 3.5 mmol/L (3.5-5.1) Chloride Level 95 mmol/L (98-107) Carbon Dioxide Level 18 mmol/L (21-32) Anion Gap 19 (6-14) Blood Urea Nitrogen 21 mg/dL (8-26) Creatinine 1.2 mg/dL (0.7-1.3) Estimated GFR (Cockcroft-Gault) 65.5 BUN/Creatinine Ratio 18 (6-20) Glucose Level 204 mg/dL (70-99) Calcium Level 8.8 mg/dL (8.5-10.1) Magnesium Level 2.6 mg/dL (1.8-2.4) Total Bilirubin 1.5 mg/dL (0.2-1.0) Aspartate Amino Transf (AST/SGOT) 37 U/L (15-37) Alanine Aminotransferase (ALT/SGPT) 48 U/L (16-63) Alkaline Phosphatase 141 U/L (46-116) Troponin I Quantitative < 0.017 ng/mL (0.000-0.055) < 0.017 ng/mL (0.000-0.055) KA-Htz-W-Type Natriuretic Peptide 403 pg/mL (0-124) Total Protein 7.2 g/dL (6.4-8.2) Albumin 3.1 g/dL (3.4-5.0) Albumin/Globulin Ratio 0.8 (1.0-1.7) Triglycerides Level 2247 mg/dL (0-150) Cholesterol Level 274 mg/dL (0-200) LDL Cholesterol, Calculated mg/dL (0-100) VLDL Cholesterol, Calculated 449 mg/dL (0-40) Non-HDL Cholesterol Calculated mg/dL (0-129) HDL Cholesterol mg/dL (40-60) Cholesterol/HDL Ratio Lipase 629 U/L (73-393) Thyroid Stimulating Hormone (TSH) 0.882 uIU/mL (0.358-3.74) Ethyl Alcohol Level < 10 mg/dL (0-10) Urine Collection Type Unknown Urine Color Niki Urine Clarity Clear Urine pH 6.0 (<5.0-8.0) Urine Specific [place] >=1.030 (1.000-1.030) Urine Protein 30 mg/dL (NEG-TRACE) Urine Glucose (UA) Negative mg/dL (NEG) Urine Ketones (Stick) 15 mg/dL (NEG) Urine Blood Negative (NEG) Urine Nitrite Negative (NEG) Urine Bilirubin Small (NEG) Urine Urobilinogen Dipstick 1.0 mg/dL (0.2 mg/dL) Urine Leukocyte Esterase Negative (NEG) Urine RBC 0 /HPF (0-2) Urine WBC 1-4 /HPF (0-4) Urine Squamous Epithelial Cells Few /LPF Urine Amorphous Sediment Present /HPF Urine Bacteria Few /HPF (0-FEW) Urine Mucus Slight /LPF Urine Opiates Screen Neg (NEG) Urine Methadone Screen Neg (NEG) Urine Barbiturates Neg (NEG) Urine Phencyclidine Screen Neg (NEG) Urine Amphetamine/Methamphetamine Neg (NEG) Urine Benzodiazepines Screen Neg (NEG) Urine Cocaine Screen Neg (NEG) Urine Cannabinoids Screen Neg (NEG) Urine Ethyl Alcohol Neg (NEG) Glucose (Fingerstick) 180 mg/dL (70-99) Test 01/19/20 00:32 01/19/20 08:11 01/19/20 11:58 01/19/20 12:56 White Blood Count 8.2 x10^3/uL (4.0-11.0) Red Blood Count 4.95 x10^6/uL (4.30-5.70) Hemoglobin 14.3 g/dL (13.0-17.5) Hematocrit 42.6 % (39.0-53.0) Mean Corpuscular Volume 86 fL (79-100) Mean Corpuscular Hemoglobin 29 pg (25-35) Mean Corpuscular Hemoglobin Concent 34 g/dL (31-37) Red Cell Distribution Width 16.9 % (11.5-14.5) Platelet Count 357 x10^3/uL (140-400) Neutrophils (%) (Auto) 65 % (31-73) Lymphocytes (%) (Auto) 25 % (24-48) Monocytes (%) (Auto) 7 % (0-9) Eosinophils (%) (Auto) 2 % (0-3) Basophils (%) (Auto) 1 % (0-3) Neutrophils # (Auto) 5.4 x10^3/uL (1.8-7.7) Lymphocytes # (Auto) 2.1 x10^3/uL (1.0-4.8) Monocytes # (Auto) 0.5 x10^3/uL (0.0-1.1) Eosinophils # (Auto) 0.2 x10^3/uL (0.0-0.7) Basophils # (Auto) 0.0 x10^3/uL (0.0-0.2) Sodium Level 135 mmol/L (136-145) Potassium Level 3.6 mmol/L (3.5-5.1) Chloride Level 100 mmol/L (98-107) Carbon Dioxide Level 26 mmol/L (21-32) Anion Gap 9 (6-14) Blood Urea Nitrogen 20 mg/dL (8-26) Creatinine 1.3 mg/dL (0.7-1.3) Estimated GFR (Cockcroft-Gault) 59.7 Glucose Level 191 mg/dL (70-99) Hemoglobin A1c 6.7 % (4.8-5.6) Calcium Level 8.5 mg/dL (8.5-10.1) Phosphorus Level 2.3 mg/dL (2.6-4.7) Magnesium Level 2.6 mg/dL (1.8-2.4) Creatine Kinase 184 U/L (39-308) Troponin I Quantitative < 0.017 ng/mL (0.000-0.055) Glucose (Fingerstick) 195 mg/dL (70-99) 202 mg/dL (70-99) 205 mg/dL (70-99) Test 01/19/20 14:17 01/19/20 15:23 01/19/20 16:26 01/19/20 17:31 Glucose (Fingerstick) 178 mg/dL (70-99) 129 mg/dL (70-99) 154 mg/dL (70-99) 184 mg/dL (70-99) Test 01/19/20 18:38 01/19/20 19:42 01/19/20 20:43 01/19/20 20:46 Glucose (Fingerstick) 166 mg/dL (70-99) 192 mg/dL (70-99) 141 mg/dL (70-99) Lactic Acid Level 2.9 mmol/L (0.4-2.0) Test 01/19/20 22:02 01/19/20 23:06 01/20/20 00:12 01/20/20 00:23 Glucose (Fingerstick) 116 mg/dL (70-99) 128 mg/dL (70-99) 152 mg/dL (70-99) Sodium Level 138 mmol/L (136-145) Potassium Level 3.9 mmol/L (3.5-5.1) Chloride Level 102 mmol/L (98-107) Carbon Dioxide Level 27 mmol/L (21-32) Anion Gap 9 (6-14) Blood Urea Nitrogen 11 mg/dL (8-26) Creatinine 0.9 mg/dL (0.7-1.3) Estimated GFR (Cockcroft-Gault) 91.3 BUN/Creatinine Ratio 12 (6-20) Glucose Level 152 mg/dL (70-99) Lactic Acid Level 0.7 mmol/L (0.4-2.0) Calcium Level 8.3 mg/dL (8.5-10.1) Total Bilirubin 1.2 mg/dL (0.2-1.0) Aspartate Amino Transf (AST/SGOT) 93 U/L (15-37) Alanine Aminotransferase (ALT/SGPT) 88 U/L (16-63) Alkaline Phosphatase 117 U/L (46-116) Total Protein 6.5 g/dL (6.4-8.2) Albumin 3.0 g/dL (3.4-5.0) Albumin/Globulin Ratio 0.9 (1.0-1.7) Triglycerides Level 600 mg/dL (0-150) Lipase 596 U/L (73-393) Test 01/20/20 01:17 01/20/20 02:21 01/20/20 03:25 01/20/20 04:17 Glucose (Fingerstick) 183 mg/dL (70-99) 140 mg/dL (70-99) 118 mg/dL (70-99) 160 mg/dL (70-99) Test 01/20/20 05:17 01/20/20 06:21 01/20/20 07:20 01/20/20 12:07 Glucose (Fingerstick) 166 mg/dL (70-99) 135 mg/dL (70-99) 109 mg/dL (70-99) 179 mg/dL (70-99) Laboratory Tests Test 01/19/20 14:17 01/19/20 15:23 01/19/20 16:26 01/19/20 17:31 Glucose (Fingerstick) 178 mg/dL (70-99) 129 mg/dL (70-99) 154 mg/dL (70-99) 184 mg/dL (70-99) Test 01/19/20 18:38 01/19/20 19:42 01/19/20 20:43 01/19/20 20:46 Glucose (Fingerstick) 166 mg/dL (70-99) 192 mg/dL (70-99) 141 mg/dL (70-99) Lactic Acid Level 2.9 mmol/L (0.4-2.0) Test 01/19/20 22:02 01/19/20 23:06 01/20/20 00:12 01/20/20 00:23 Glucose (Fingerstick) 116 mg/dL (70-99) 128 mg/dL (70-99) 152 mg/dL (70-99) Sodium Level 138 mmol/L (136-145) Potassium Level 3.9 mmol/L (3.5-5.1) Chloride Level 102 mmol/L (98-107) Carbon Dioxide Level 27 mmol/L (21-32) Anion Gap 9 (6-14) Blood Urea Nitrogen 11 mg/dL (8-26) Creatinine 0.9 mg/dL (0.7-1.3) Estimated GFR (Cockcroft-Gault) 91.3 BUN/Creatinine Ratio 12 (6-20) Glucose Level 152 mg/dL (70-99) Lactic Acid Level 0.7 mmol/L (0.4-2.0) Calcium Level 8.3 mg/dL (8.5-10.1) Total Bilirubin 1.2 mg/dL (0.2-1.0) Aspartate Amino Transf (AST/SGOT) 93 U/L (15-37) Alanine Aminotransferase (ALT/SGPT) 88 U/L (16-63) Alkaline Phosphatase 117 U/L (46-116) Total Protein 6.5 g/dL (6.4-8.2) Albumin 3.0 g/dL (3.4-5.0) Albumin/Globulin Ratio 0.9 (1.0-1.7) Triglycerides Level 600 mg/dL (0-150) Lipase 596 U/L (73-393) Test 01/20/20 01:17 01/20/20 02:21 01/20/20 03:25 01/20/20 04:17 Glucose (Fingerstick) 183 mg/dL (70-99) 140 mg/dL (70-99) 118 mg/dL (70-99) 160 mg/dL (70-99) Test 01/20/20 05:17 01/20/20 06:21 01/20/20 07:20 01/20/20 12:07 Glucose (Fingerstick) 166 mg/dL (70-99) 135 mg/dL (70-99) 109 mg/dL (70-99) 179 mg/dL (70-99) Brief Hospital Course Mr. White is a 44 old male who presented with acute pancreatitis secondary to hypertriglyceridemia. Consultations were placed to cardiology and GI. Triglycerides on admission were 2247. He was placed on an insulin drip with improvement of his triglycerides. He was treated appropriately with IV hydration. His diet was advanced and he was tolerating a diabetic diet on the date of discharge without nausea, vomiting, or abdominal pain. He was discharged on statin medication and instructed to follow-up with his PCP within 5 to 7 days. Discharge Information Condition at Discharge: Improved Follow Up: Weeks Disposition/Orders: D/C to Home Scheduled Amlodipine Besylate (Amlodipine Besylate) 10 Mg Tablet, 10 MG PO DAILY, (Reported) Entered as Reported by: SANTANA VERGARA on 09/21/15 1149 Last Action: Reviewed on 01/18/202347 by DAVID SHERIFF Atorvastatin Calcium (Atorvastatin Calcium) 40 Mg Tablet, 1 TAB PO DAILY for HLD, #30 Ref 5 Prescribed by: RAPHAEL SANTIAGO MD on 01/20/20 1334 Duloxetine Hcl (Duloxetine Hcl) 60 Mg Capsule.dr, 1 CAP PO DAILY for anxiety, (Reported) Entered as Reported by: DAVID SHERIFF on 01/18/202347 Last Action: New Order on 01/18/202347 by DAVID SHERIFF Insulin Glargine,Hum.rec.anlog (Lantus Solostar) 100 Unit/1 Ml Insuln.pen, 30 UNITS SQ BID for blood sugar, (Reported) Entered as Reported by: DAVID SHERIFF on 01/18/202347 Last Taken: Unknown Dose on 01/18/20 Last Action: New Order on 01/18/202347 by DAVID SHERIFF Insulin Lispro (Humalog) 100 Unit/1 Ml Vial, Unknown Dose SQ TIDAC for Blood sugar MDD 60, (Reported) per Sliding Scale Entered as Reported by: DAVID SHERIFF on 01/18/202347 Last Taken: UNKNOWN on 01/18/20 Last Action: New Order on 01/18/202347 by DAVID SHERFIF Lansoprazole (Lansoprazole) 30 Mg Capsule.dr, 1 CAP PO DAILY, #30 Ref 5 (Reported) Entered as Reported by: LUIS A VICENTE on 01/12/18343 Last Action: Reviewed on 01/18/202347 by DAVID SHERIFF Lorazepam (Ativan) 0.5 Mg Tablet, 0.5 MG PO HS for anxiety, (Reported) Entered as Reported by: MOHSEN WU RN on 01/19/202000 Last Action: New Order on 01/19/202000 by MOHSEN WU RN Multivitamin (Multivitamins) 1 Each Tablet, 1 TAB PO DAILY, #90 Ref 3 (Reported) Entered as Reported by: LUIS A VICENTE on 01/12/18343 Last Action: HELD on 01/20/20 0750 by RAPHAEL SANTIAGO MD Nebivolol Hcl (Bystolic) 20 Mg Tablet, 20 MG PO DAILY, (Reported) Entered as Reported by: LUIS A VICENTE on 01/12/18343 Last Action: Reviewed on 01/18/202347 by DAVID SHERIFF [place]-3 Acid Ethyl Esters (Lovaza) 1 Gm Capsule, 2 CAP PO BID for Hypertriglyceridemia for 90 Days, #360 Ref 3 Prescribed by: JOSE APPIAH MD on 01/19/20 1346 Scheduled PRN Calcium Carbonate (Calcium) 500 Mg Tab.chew, 500 MG PO PRN Q4HRS PRN for INDIGESTION, (Reported) Entered as Reported by: LUIS A VICENTE on 01/12/18343 Last Action: Edited on 01/18/202350 by DAVID SHERIFF Gabapentin (Gabapentin) 300 Mg Capsule, 2 CAP PO PRN BID PRN for PAIN, (Reported) Entered as Reported by: DAVID SHERIFF on 01/18/202347 Last Action: New Order on 01/18/202347 by DAVID SHERIFF Tramadol Hcl (Tramadol Hcl) 50 Mg Tablet, 50 MG PO PRN BID PRN for PAIN, Ref 0 (Reported) Entered as Reported by: LUIS A VICENTE on 01/12/18343 Last Action: Edited on 01/18/202347 by DAVID SHERIFF Miscellaneous Medications [hemp botanicals] , (Reported) Entered as Reported by: LUIS A VICENTE on 01/12/18343 Last Action: HELD on 01/20/20749 by RAPHAEL SANTIAGO MD Discontinued Medications Duloxetine Hcl (Cymbalta) 20 Mg Capsule.dr, 1 CAP PO DAILY, #30 Ref 2 (Reported) Entered as Reported by: LUIS A VICENTE on 01/12/18343 Last Action: Discontinued on 01/18/202347 by DAVID SHERIFF Ibuprofen (Ibuprofen) 400 Mg Tablet, 400 MG PO PRN Q6HRS PRN for INFLAMMATION, (Reported) Entered as Reported by: SANTANA VERGARA on 09/21/15 1150 Last Action: HELD on 01/20/20749 by RAPHAEL SANTIAGO MD [place]/Polymyx B Sulf/Dexameth (Maxitrol Eye Drops) 5 Ml Drops.susp, 1 DROP OD QID, #5 (Reported) Entered as Reported by: LUIS A VICENTE on 01/12/18343 Last Action: HELD on 01/20/20749 by RAPHAEL SANTIAGO MD Justicifation of Admission Dx: Justifications for Admission: Justification of Admission Dx: Yes RAPHAEL SANTIAGO MD Jan 20, 2020 13:40
--- NOTE | 2020-01-20 14:19 | NUR ---
Discharge Note: JOSHUA VÁSQUEZ Discharge instructions and discharge home medications reviewed with Patient and a copy given. All questions have been answered and understanding verbalized. The following instructions and handouts were given:acute pancreatitis and new medications, discharge intruction Discontinued lines and drains: peripheral iv discontinued. Patient discharged to home via ambulation.
== END 2020-01-20 14:00 | disposition home or self-care (01) | DRG 439 ==
LOC: ER 16:24 → ED HOLD 18:26 → 2 NORTH 19:58
PROVIDERS: ADMIT Internal Medicine; ATTEND Internal Medicine
DX: K85.80 Other acute pancreatitis without necrosis or infection (principal); E87.1 Hypo-osmolality and hyponatremia; E87.2 Acidosis; Z68.41 Body mass index [BMI] 40.0-44.9, adult; E11.65 Type 2 diabetes mellitus with hyperglycemia; E66.01 Morbid (severe) obesity due to excess calories; E78.1 Pure hyperglyceridemia; E78.5 Hyperlipidemia, unspecified; E86.9 Volume depletion, unspecified; E87.8 Other disorders of electrolyte and fluid balance, not elsewhere classified; F10.20 Alcohol dependence, uncomplicated; F32.9 Major depressive disorder, single episode, unspecified; F41.9 Anxiety disorder, unspecified; G89.29 Other chronic pain; I10 Essential (primary) hypertension; I71.2 Thoracic aortic aneurysm, without rupture; Z96.653 Presence of artificial knee joint, bilateral; Y90.0 Blood alcohol level of less than 20 mg/100 ml; K21.9 Gastro-esophageal reflux disease without esophagitis; K76.0 Fatty (change of) liver, not elsewhere classified; Z79.4 Long term (current) use of insulin; Z83.3 Family history of diabetes mellitus
CPT/HCPCS: 36415; 71045; 71275; 74176; 80048; 80053; 80061; 80307; 81001; 82550; 82962; 83036; 83605; 83690; 83735; 83880; 84100; 84443; 84478; 84484; 85025; 85379; 85610; 93005; 96374; 99285; G0480; J1650; J1815; J2270; J2405; J3480; J7030; Q9967; G0378

== ENCOUNTER 2020-03-16 19:34 | Inpatient (IN) | payer BC ==
[~2020-03-16] VITALS: Ht 188 cm; Wt 150.4 kg
[~2020-03-16 19:34] MED LIST changes: +ATOR40TA59 PO; +DULO60CA45 PO; +GABA300C9 PO; +INSU100I13 SQ; +INSU100V2 SQ; +LORA0.5T96 PO; +OMEG1CAP2 PO
--- NOTE | 2020-03-16 20:54 | PHYS DOC ---
Past Medical History Past Medical History: Anxiety, Diabetes-Type I, GERD, Hypertension Past Surgical History: Knee Replacement, Other Additional Past Surgical Histo: BILATERAL KNEE REPLACEMENT, NECK SURGERY, WISDOM TEETH EXTRACTED. Smoking Status: Former Smoker Alcohol Use: Heavy Drug Use: None General Adult EDM: Chief Complaint: CHEST PAIN HPI: HPI: 44M with PMH of HTN, HL, DM, p/w epigastric pain. The patient reports onset of epigastric pain about 3 days ago. Prior to onset of symptoms, he drank 4 beers and ate a large ribeye steak he states. Reports compliance with home medication regimen. Associated nausea and nonbloody/nonbilious emesis. No diarrhea, chest pain, dyspnea. Admitted a couple months ago for CP, found to have pancreatitis secondary to hypertriglyceridemia. Review of Systems: Review of Systems: Gen: No fever, chills. Eyes: No blurred vision, diplopia. ENT: No nasal congestion, sore throat. CV: No CP, palpitations. Resp. No SOB, cough. GI: Reports epigastric abd pain, N/V. : No dysuria, hematuria. Neuro: No VENCES, dizziness, weakness. MSK: No myalgia, arthralgia, back pain. Skin: No acute rash or lesion. Heart Score: Risk Factors: Risk Factors: DM, Current or recent (<one month) smoker, HTN, HLP, family history of CAD, obesity. Risk Scores: Score 0 - 3: 2.5% MACE over next 6 weeks - Discharge Home Score 4 - 6: 20.3% MACE over next 6 weeks - Admit for Clinical Observation Score 7 - 10: 72.7% MACE over next 6 weeks - Early Invasive Strategies Allergies: Allergies: Allergies Coded Allergies Type Severity Reaction Last Updated Verified No Known Drug Allergies 09/21/15 No Physical Exam: PE: Gen: NAD. Well nourished. Head: NC/AT. Eyes: No scleral icterus. No conjunctival injection. ENT: MMM. Posterior OP clear. Neck: Supple. NT. No JVD. CV: RRR. Peripheral pulses intact. Resp: CTAB. Mild tachypnea. Abd: Soft. Nondistended. Obese. Epigastric tenderness without peritoneal signs. MSK: No peripheral cyanosis. No edema. Neuro: Awake and alert. Skin. Warm. Dry. Psych: Appropriate mood & affect. Current Patient Data: Labs: Laboratory Tests Test 03/16/20 21:20 White Blood Count 16.8 x10^3/uL (4.0-11.0) Red Blood Count 5.31 x10^6/uL (4.30-5.70) Hemoglobin 15.3 g/dL (13.0-17.5) Hematocrit 46.7 % (39.0-53.0) Mean Corpuscular Volume 88 fL (79-100) Mean Corpuscular Hemoglobin 29 pg (25-35) Mean Corpuscular Hemoglobin Concent 33 g/dL (31-37) Red Cell Distribution Width 17.1 % (11.5-14.5) Platelet Count 390 x10^3/uL (140-400) Neutrophils (%) (Auto) 88 % (31-73) Lymphocytes (%) (Auto) 5 % (24-48) Monocytes (%) (Auto) 7 % (0-9) Eosinophils (%) (Auto) 0 % (0-3) Basophils (%) (Auto) 0 % (0-3) Neutrophils # (Auto) 14.7 x10^3/uL (1.8-7.7) Lymphocytes # (Auto) 0.8 x10^3/uL (1.0-4.8) Monocytes # (Auto) 1.2 x10^3/uL (0.0-1.1) Eosinophils # (Auto) 0.0 x10^3/uL (0.0-0.7) Basophils # (Auto) 0.1 x10^3/uL (0.0-0.2) Segmented Neutrophils % 88 % (35-66) Band Neutrophils % 5 % (0-9) Lymphocytes % 3 % (24-48) Monocytes % 4 % (0-10) Toxic Granulation Slight Platelet Estimate Adequate (ADEQUATE) Anisocytosis Slight Sodium Level 135 mmol/L (136-145) Chloride Level 97 mmol/L (98-107) Carbon Dioxide Level 19 mmol/L (21-32) Anion Gap 19 (6-14) Blood Urea Nitrogen 12 mg/dL (8-26) Estimated GFR (Cockcroft-Gault) 65.5 BUN/Creatinine Ratio 10 (6-20) Glucose Level 233 mg/dL (70-99) Calcium Level 9.1 mg/dL (8.5-10.1) Total Bilirubin 1.1 mg/dL (0.2-1.0) Aspartate Amino Transf (AST/SGOT) 53 U/L (15-37) Alkaline Phosphatase 117 U/L (46-116) Troponin I Quantitative < 0.017 ng/mL (0.000-0.055) Total Protein 7.6 g/dL (6.4-8.2) Albumin 3.7 g/dL (3.4-5.0) Albumin/Globulin Ratio 0.9 (1.0-1.7) Lipase 1625 U/L (73-393) Vital Signs: Vital Signs Date Time Temp Pulse Resp B/P (MAP) Pulse Ox O2 Delivery O2 Flow Rate FiO2 03/16/20 20:36 98.8 16 141/87 (105) 95 98.8 EKG: EKG: EKG at 1951. Sinus rhythm. Heart rate 90. Normal intervals. No STEMI. Interpreted by me. Radiology/Procedures: Radiology/Procedures: [] Course & Med Decision Making: Course & Med Decision Making Pertinent Labs and Imaging studies reviewed. (See chart for details) In summary, 44-year-old male who presents with 3 days of epigastric pain, nausea and vomiting that began after consuming 4 beers this past weekend. Benign abdominal exam without peritoneal signs. Lab work is notable for mildly low bicarb of 19 receiving IV fluids. Elevated lipase of 1600 consistent with suspected acute pancreatitis. The patient was admitted for pancreatitis steatorrhea a couple months ago. His triglycerides were greater than 2000 at that time. It is 1100 today. He reports compliance with his home medication regimen including his cholesterol meds. Possible multifactorial etiology. Due to ongoing symptoms and intractable nausea, the patient will be admitted for further management. Dragon Disclaimer: Ze Disclaimer: This electronic medical record was generated, in whole or in part, using a voice recognition dictation system. Departure Departure Impression: Primary Impression: Pancreatitis Additional Impressions: Intractable nausea and vomiting Hypertriglyceridemia Disposition: 09 ADMITTED INPT THIS HOSP Admitting Physician: KALPANA Condition: STABLE Referrals: GENARO PHILIP (PCP) RANI CHAVEZ DO Mar 16, 2020 20:54
[2020-03-16] MEDS ORDERED: IV NORMAL SALINE 1000ML BAG 1,000 ML IV ONE (21:30)
[2020-03-16] MEDS ORDERED: ONDANSETRON PF 4 MG/2 ML VIAL. IVP ONE (21:30)
[2020-03-16] MEDS ORDERED: MORPHINE SULFATE 4 MG/ML VIAL. IV ONE ×2 (21:30→23:00)
[2020-03-16 21:32] LABS: BASO # 0.1 x10^3/uL (0.0-0.2); BASO % 0 % (0-3); EOS % 0 % (0-3); HEMATOCRIT 46.7 % (39.0-53.0); HEMOGLOBIN 15.3 g/dL (13.0-17.5); LYMPH # 0.8 x10^3/uL (1.0-4.8); LYMPH % 5 % (24-48); MEAN CORPUSCULAR HEMOGLOBIN 29 pg (25-35); MEAN CORPUSCULAR HGB CONC 33 g/dL (31-37); MEAN CORPUSCULAR VOLUME 88 fL (79-100); MONO # 1.2 x10^3/uL (0.0-1.1); MONO % 7 % (0-9); NEUT # 14.7 x10^3/uL (1.8-7.7); NEUT % 88 % (31-73); PLATELET COUNT 390 x10^3/uL (140-400); RED BLOOD COUNT 5.31 x10^6/uL (4.30-5.70); RED CELL DISTRIBUTION WIDTH 17.1 % (11.5-14.5); WHITE BLOOD COUNT 16.8 x10^3/uL (4.0-11.0)
[2020-03-16 21:39] LABS: CALCIUM 9.1 mg/dL (8.5-10.1); CREATININE 1.2 mg/dL (0.7-1.3); GFR 65.5
[2020-03-16 21:45] LABS: ALBUMIN 3.7 g/dL (3.4-5.0); ALBUMIN/GLOBULIN RATIO 0.9 (1.0-1.7); MAGNESIUM 1.7 mg/dL (1.8-2.4); TOTAL BILIRUBIN 1.1 mg/dL (0.2-1.0); TOTAL PROTEIN 7.6 g/dL (6.4-8.2)
[2020-03-16 21:50] LABS: % BANDS 5 % (0-9); % LYMPHS 3 % (24-48); % MONOS 4 % (0-10); % SEGS 88 % (35-66); ANISOCYTOSIS SLIGHT; PLT ESTIMATE ADEQUATE (ADEQUATE); TOXIC GRANULATION SLIGHT
--- NOTE | 2020-03-16 22:00 | RAD ---
XR CHEST 1V INDICATION: Reason: CP / Spl. Instructions: / History: . COMPARISON STUDY: 01/18/2020. FINDINGS: Lungs: Normal lung volume. No pulmonary mass or consolidation. The tracheobronchial tree and hilar st ructures are normal. Pleura: No pleural effusion or pneumothorax. Heart and Mediastinum: The cardiomediastinal silhouette is normal. The great vessels of the thorax ar e normal. IMPRESSION: No acute cardiopulmonary process. Electronically signed by: Trae Duarte MD (03/16/2020 9:58 PM) [facility]
[2020-03-17] VITALS (8 sets, daily range): BP systolic 113–139; BP diastolic 59–86
[2020-03-17] MEDS ORDERED: INSULIN LISPRO 300 UNITS/3 ML VIAL. SQ ONE (00:30)
[2020-03-17] MEDS: MORPHINE SULFATE 4 MG/ML VIAL. IV PRN ×6 (01:03→12:10)
[2020-03-17] MEDS ORDERED: ZOLPIDEM 5 MG TABLET. PO ONE (02:00)
[2020-03-17] MEDS: ONDANSETRON PF 4 MG/2 ML VIAL. IV PRN ×2 (03:15→09:33)
--- NOTE | 2020-03-17 09:38 | NUR ---
SW following. Discussed with RN, pt from home, room air, clear liquid diet. RN advised no SW needs at this time. SW will continue to follow.
--- NOTE | 2020-03-17 10:41 | PDOC1 ---
History and Physical Date of Admission Date of Admission DATE: 03/17/20 TIME: 10:40 Identification/Chief Complaint Chief Complaint seen in er with acute pancreatitis patient reports onset of epigastric pain about 3 days ago. Prior to onset of symptoms, he drank 4 beers and ate a large ribeye steak he states. Reports compliance with home medication regimen. Associated nausea and nonbloody/nonbilious emesis. No diarrhea, chest pain, dyspnea. Admitted a couple months ago for CP, found to have pancreatitis secondary to hypertriglyceridemia. lipase = 1625 Mr. White is a 44 old male who presented with acute pancreatitis secondary to hypertriglyceridemia. Consultations were placed to cardiology and GI IN JANUARY 18. Past Medical History Past Medical History Past Medical History Past Medical History Past Medical History: Anxiety, Diabetes-Type I, GERD, Hypertension Past Surgical History: Knee Replacement, Other Additional Past Surgical Histo: BILATERAL KNEE REPLACEMENT, NECK SURGERY, WISDOM TEETH EXTRACTED. Smoking Status: Former Smoker Alcohol Use: Heavy Drug Use: None H/o GERD controlled w/ Prevacid QD. No dysphagia, n/v, diarrhea, constipation, hematochezia, melena, or weight loss. EGD in 1997 w/ reflux. Colonoscopy in 1999 w/ anal fissure. No GB history - no gallstones on US in 2018. Hepatic steatosis on imaging FHX OBESITY Cardiovascular: HTN, Hyperlipidemia Pulmonary: No pertinent hx CENTRAL NERVOUS SYSTEM: Other GI: GERD Heme/Onc: No pertinent hx Hepatobiliary: No pertinent hx Psych: No pertinent hx Musculoskeletal: low back pain, Osteoarthritis Rheumatologic: No pertinent hx Infectious disease: No pertinent hx Renal/: No pertinent hx Endocrine: Diabetes Past Surgical History Past Surgical History: Arthroscopy, Other Family History Family History: Heart Disease Social History Smoke: <1 pack per day ALCOHOL: heavy Drugs: None, Marijuana Current Problem List Problem List Problems Medical Problems: (1) Hypertriglyceridemia Status: Acute (2) Intractable nausea and vomiting Status: Acute (3) Pancreatitis Status: Acute Current Medications Current Medications Current Medications Sodium Chloride 1,000 ml @ 1,000 mls/hr 1X ONCE IV Last administered on 03/16/20at 21:33; Start 03/16/20 at 21:30; Stop 03/16/20 at 22:29; Status DC Ondansetron HCl (Zofran) 4 mg 1X ONCE IVP Last administered on 03/16/20at 21:34; Start 03/16/20 at 21:30; Stop 03/16/20 at 21:31; Status DC Morphine Sulfate (Morphine Sulfate) 4 mg 1X ONCE IV Last administered on 03/16/20at 21:34; Start 03/16/20 at 21:30; Stop 03/16/20 at 21:31; Status DC Morphine Sulfate (Morphine Sulfate) 4 mg 1X ONCE IV Last administered on 03/16at 22:59; Start 03/16/20 at 23:00; Stop 03/16/20 at 23:01; Status DC Ondansetron HCl (Zofran) 4 mg PRN Q6HRS PRN IV NAUSEA/VOMITING 1ST CHOICE Last administered on 03/17/20at 09:33; Start 03/16/20 at 23:45; Stop 03/17/20 at 23:44 Morphine Sulfate (Morphine Sulfate) 4 mg PRN Q2HR PRN IV SEVERE PAIN 7-10 Last administered on 03/17/20at 09:33; Start 03/16/20 at 23:45; Stop 03/17/20 at 23:44 Insulin Human Lispro (HumaLOG) 20 units ONCE ONCE SQ Last administered on 03/17/20at 00:32; Start 03/17/20 at 00:30; Stop 03/17/20 at 00:31; Status DC Zolpidem Tartrate (Ambien) 5 mg PRN QHS PRN PO INSOMNIA; Start 03/17/20 at 02:00 Zolpidem Tartrate (Ambien) 5 mg 1X ONCE PO Last administered on 03/17/20at 01:59; Start 03/17/20 at 02:00; Stop 03/17/20 at 02:01; Status DC Active Scripts Active Atorvastatin Calcium 40 Mg Tablet 1 Tab PO DAILY Lovaza ([place]-3 Acid Ethyl Esters) 1 Gm Capsule 2 Cap PO BID 90 Days Reported Ativan (Lorazepam) 0.5 Mg Tablet 0.5 Mg PO HS Duloxetine Hcl 60 Mg Capsule.dr 1 Cap PO DAILY Gabapentin 300 Mg Capsule 2 Cap PO PRN BID PRN Humalog (Insulin Lispro) 100 Unit/1 Ml Vial Unknown Dose SQ TIDAC MDD 60 per Sliding Scale Lantus Solostar (Insulin Glargine,Hum.rec.anlog) 100 Unit/1 Ml Insuln.pen 30 Units SQ BID [hemp botanicals] Multivitamins (Multivitamin) 1 Each Tablet 1 Tab PO DAILY Calcium (Calcium Carbonate) 500 Mg Tab.chew 500 Mg PO PRN Q4HRS PRN Lansoprazole 30 Mg Capsule.dr 1 Cap PO DAILY Tramadol Hcl 50 Mg Tablet 50 Mg PO PRN BID PRN Bystolic (Nebivolol Hcl) 20 Mg Tablet 20 Mg PO DAILY Amlodipine Besylate 10 Mg Tablet 10 Mg PO DAILY Allergies Allergies: Coded Allergies: No Known Drug Allergies (Unverified , 09/21/15) ROS Review of System REVIEW OF SYSTEMS: GENERAL: Denies weakness SKIN: No bruising, hair changes or rashes. EYES: No blurred, double or loss of vision. NOSE AND THROAT: No history of nosebleeds, hoarseness or sore throat. HEART: No history of palpitations, chest pain or shortness of breath on exertion. LUNGS: Denies cough, hemoptysis, wheezing or shortness of breath. GASTROINTESTINAL: POS PAIN, changes in appetite, nausea, vomiting, GENITOURINARY: No history of frequency, urgency, hesitancy or nocturia. NEUROLOGIC: Denies history of numbness, tingling, or tremor. PSYCHIATRIC: No history of panic, anxiety or depression. ENDOCRINE: No history of heat or cold intolerance, polyuria or polydipsia. EXTREMITIES: Denies joint pain, pain on walking or stiffness. 14 pt ros otherwise neg Respiratory: No: Cough, Hemoptysis, Orthopnea, Pleuritic Pain, Shortness of breath, SOB with excertion, Sputum Changes, Stridor, Tachypnea, Wheezing, Other Gastrointestinal: Yes Nausea, Yes Abdominal Pain Physical Exam Physical Exam Gen: NAD. Well nourished. Head: NC/AT. Eyes: No scleral icterus. No conjunctival injection. ENT: MMM. Posterior OP clear. Neck: Supple. NT. No JVD. CV: RRR. Peripheral pulses intact. Resp: CTAB. Mild tachypnea. Abd: Soft. Nondistended. Obese. Epigastric tenderness without peritoneal signs. MSK: No peripheral cyanosis. No edema. Neuro: Awake and alert. Skin. Warm. Dry. Psych: Appropriate mood & affect. General: Alert, Oriented X3, Cooperative, mild acute distress Heart: Regular rate, Normal S1, Normal S2 Lungs: Clear Abdomen: Normal bowel sounds, Soft, Other (LUQ pain) Extremities: No clubbing, No cyanosis Skin: No rashes, No breakdown General: Alert, Oriented X3, Cooperative, mild distress, moderate distress HEENT: Atraumatic, EOMI, Mucous membr. moist/pink Lungs: Clear to auscultation, Normal air movement Heart: S1S2, RRR, no thrills, no rubs Breasts: Not examined Abdomen: Normal bowel sounds, Soft, No masses Rectal Exam: not examined PELVIC: Examination not indicated Extremities: No cyanosis Neuro: Normal speech, Sensation intact, Cranial nerves 3-12 NL Psych/Mental Status: Mental status NL, Mood NL Vitals Vitals Vital Signs Date Time Temp Pulse Resp B/P (MAP) Pulse Ox O2 Delivery O2 Flow Rate FiO2 03/17/20 09:33 Room Air 03/17/20 07:00 99.1 96 18 131/86 (101) 92 99.1 Labs Labs Laboratory Tests Test 03/16/20 21:20 White Blood Count 16.8 x10^3/uL (4.0-11.0) Red Blood Count 5.31 x10^6/uL (4.30-5.70) Hemoglobin 15.3 g/dL (13.0-17.5) Hematocrit 46.7 % (39.0-53.0) Mean Corpuscular Volume 88 fL (79-100) Mean Corpuscular Hemoglobin 29 pg (25-35) Mean Corpuscular Hemoglobin Concent 33 g/dL (31-37) Red Cell Distribution Width 17.1 % (11.5-14.5) Platelet Count 390 x10^3/uL (140-400) Neutrophils (%) (Auto) 88 % (31-73) Lymphocytes (%) (Auto) 5 % (24-48) Monocytes (%) (Auto) 7 % (0-9) Eosinophils (%) (Auto) 0 % (0-3) Basophils (%) (Auto) 0 % (0-3) Neutrophils # (Auto) 14.7 x10^3/uL (1.8-7.7) Lymphocytes # (Auto) 0.8 x10^3/uL (1.0-4.8) Monocytes # (Auto) 1.2 x10^3/uL (0.0-1.1) Eosinophils # (Auto) 0.0 x10^3/uL (0.0-0.7) Basophils # (Auto) 0.1 x10^3/uL (0.0-0.2) Segmented Neutrophils % 88 % (35-66) Band Neutrophils % 5 % (0-9) Lymphocytes % 3 % (24-48) Monocytes % 4 % (0-10) Toxic Granulation Slight Platelet Estimate Adequate (ADEQUATE) Anisocytosis Slight Sodium Level 135 mmol/L (136-145) Potassium Level 4.0 mmol/L (3.5-5.1) Chloride Level 97 mmol/L (98-107) Carbon Dioxide Level 19 mmol/L (21-32) Anion Gap 19 (6-14) Blood Urea Nitrogen 12 mg/dL (8-26) Creatinine 1.2 mg/dL (0.7-1.3) Estimated GFR (Cockcroft-Gault) 65.5 BUN/Creatinine Ratio 10 (6-20) Glucose Level 233 mg/dL (70-99) Calcium Level 9.1 mg/dL (8.5-10.1) Magnesium Level 1.7 mg/dL (1.8-2.4) Total Bilirubin 1.1 mg/dL (0.2-1.0) Aspartate Amino Transf (AST/SGOT) 53 U/L (15-37) Alanine Aminotransferase (ALT/SGPT) 101 U/L (16-63) Alkaline Phosphatase 117 U/L (46-116) Troponin I Quantitative < 0.017 ng/mL (0.000-0.055) Total Protein 7.6 g/dL (6.4-8.2) Albumin 3.7 g/dL (3.4-5.0) Albumin/Globulin Ratio 0.9 (1.0-1.7) Triglycerides Level 1166 mg/dL (0-150) Lipase 1625 U/L (73-393) Laboratory Tests Test 03/16/20 21:20 White Blood Count 16.8 x10^3/uL (4.0-11.0) Red Blood Count 5.31 x10^6/uL (4.30-5.70) Hemoglobin 15.3 g/dL (13.0-17.5) Hematocrit 46.7 % (39.0-53.0) Mean Corpuscular Volume 88 fL (79-100) Mean Corpuscular Hemoglobin 29 pg (25-35) Mean Corpuscular Hemoglobin Concent 33 g/dL (31-37) Red Cell Distribution Width 17.1 % (11.5-14.5) Platelet Count 390 x10^3/uL (140-400) Neutrophils (%) (Auto) 88 % (31-73) Lymphocytes (%) (Auto) 5 % (24-48) Monocytes (%) (Auto) 7 % (0-9) Eosinophils (%) (Auto) 0 % (0-3) Basophils (%) (Auto) 0 % (0-3) Neutrophils # (Auto) 14.7 x10^3/uL (1.8-7.7) Lymphocytes # (Auto) 0.8 x10^3/uL (1.0-4.8) Monocytes # (Auto) 1.2 x10^3/uL (0.0-1.1) Eosinophils # (Auto) 0.0 x10^3/uL (0.0-0.7) Basophils # (Auto) 0.1 x10^3/uL (0.0-0.2) Segmented Neutrophils % 88 % (35-66) Band Neutrophils % 5 % (0-9) Lymphocytes % 3 % (24-48) Monocytes % 4 % (0-10) Toxic Granulation Slight Platelet Estimate Adequate (ADEQUATE) Anisocytosis Slight Sodium Level 135 mmol/L (136-145) Potassium Level 4.0 mmol/L (3.5-5.1) Chloride Level 97 mmol/L (98-107) Carbon Dioxide Level 19 mmol/L (21-32) Anion Gap 19 (6-14) Blood Urea Nitrogen 12 mg/dL (8-26) Creatinine 1.2 mg/dL (0.7-1.3) Estimated GFR (Cockcroft-Gault) 65.5 BUN/Creatinine Ratio 10 (6-20) Glucose Level 233 mg/dL (70-99) Calcium Level 9.1 mg/dL (8.5-10.1) Magnesium Level 1.7 mg/dL (1.8-2.4) Total Bilirubin 1.1 mg/dL (0.2-1.0) Aspartate Amino Transf (AST/SGOT) 53 U/L (15-37) Alanine Aminotransferase (ALT/SGPT) 101 U/L (16-63) Alkaline Phosphatase 117 U/L (46-116) Troponin I Quantitative < 0.017 ng/mL (0.000-0.055) Total Protein 7.6 g/dL (6.4-8.2) Albumin 3.7 g/dL (3.4-5.0) Albumin/Globulin Ratio 0.9 (1.0-1.7) Triglycerides Level 1166 mg/dL (0-150) Lipase 1625 U/L (73-393) Images Images 2D DIMENSIONS RVDd 3.5 (2.9-3.5cm) IVSd 1.1 (0.7-1.1cm) Aortic Root(2D) 3.8 (2.0-3.7cm) LVDd 4.8 (3.9-5.9cm) LVOT Diameter 2.3 (1.8-2.4cm) PWd 1.0 (0.7-1.1cm) LVDs 3.2 (2.5-4.0cm) FS (%) 33.7 % SV 66.7 ml LVEF(%) 62.5 (>50%) M-Mode DIMENSIONS Left Atrium(MM) 3.59 (2.5-4.0cm) Aortic Root 3.51 (2.2-3.7cm) Aortic Valve AoV Peak Jefe. 133.6cm/s AoV VTI 23.0cm AO Peak GR. 7.1mmHg LVOT VTI 15.82cm AO Mean GR. 4mmHg PRISCILLA (VTI) 2.80cm2 Mitral Valve MV E Velocity 93.1cm/s MV DECEL TIME 158ms MV A Velocity 74.6cm/s E/A Ratio 1.2 MV A Duration 79ms TDI Lateral E' P. V 9.65cm/s Medial E' P. V 8.04cm/s E/Lateral E' 9.6 E/Medial E' 11.6 LEFT VENTRICLE The left ventricle is normal size. There is borderline concentric left ventricular hypertrophy. The left ventricular systolic function is normal and the ejection fraction is within normal range. The Ejection Fraction is 60-65%. There is normal LV segmental wall motion. The left ventricular diastolic function and filling is normal for age. RIGHT VENTRICLE The right ventricle is normal size. There is normal right ventricular wall thickness. The right ventricular systolic function is normal. ATRIA The left atrium size is normal. The right atrium size is normal. The interatrial septum is intact with no evidence for an atrial septal defect or patent foramen ovale as noted on 2-D or Doppler imaging. AORTIC VALVE The aortic valve is normal in structure and function. The aortic valve is trileaflet. Doppler and Color Flow revealed no significant aortic regurgitation. There is no significant aortic valvular stenosis. MITRAL VALVE The mitral valve is normal in structure and function. There is no evidence of mi tral valve prolapse. There is no mitral valve stenosis. Doppler and Color Flow revealed no mitral valve regurgitation noted. TRICUSPID VALVE The tricuspid valve is normal in structure and function. Doppler and Color Flow revealed no tricuspid valve regurgitation noted. There is no tricuspid valve prolapse or vegetation. There is no tricuspid valve stenosis. PULMONIC VALVE Doppler and Color Flow revealed no pulmonic valvular regurgitation. There is no pulmonic valvular stenosis. GREAT VESSELS The aortic root is mildly enlarged. The ascending aorta is DILATED at 4.2 cm PERICARDIAL EFFUSION There is no evidence of significant pericardial effusion. Critical Notification Critical Value: No <Conclusion> The left ventricular systolic function is normal and the ejection fraction is within normal range. The Ejection Fraction is 60-65%. There is normal LV segmental wall motion. The ascending aorta is DILATED at 4.2 cm (Correlate with BSA) Signed by : Harmony Velasquez, Electronically Approved : 01/13/2018 09:30:33 DICTATED and SIGNED BY: HAROMNY VELASQUEZ MD DATE: 01/13/18 0930 CTA scan of the Chest with Contrast (Pulmonary Embolism protocol) 01/18/2020 Clinical History: Chest pain. Technique: After the intravenous administration of 100 cc of Omnipaque 350, contiguous, 0.625 mm axial sections were obtained through the chest. 2 mm axial and 3D MIP coronal and sagittal reconstructed images were obtained. One or more of the following individualized dose reduction techniques were utilized for this study: 1. Automated exposure control. 2. Adjustment of the mA and/or kV according to patient size. 3. Use of iterative reconstruction technique. Findings: The majority of the contrast is within the pulmonary veins and thoracic aortic arch. Limited contrast opacification of the pulmonary arteries with contrast is seen severely limiting the study. No obvious filling defect is seen to suggest definite evidence of pulmonary embolism. The heart is normal in size. The thoracic aorta tapers normally. Small calcified left mediastinal lymph node is seen. Gynecomastia is seen bilaterally. A 4 mm noncalcified nodule seen involving the right upper lobe. This may represent an noncalcified granuloma. Minimal dependent subsegmental atelectasis is seen involving both lungs. No area of consolidation, pleural effusion or pneumothorax is seen. Impression: Limited contrast opacification of the pulmonary arteries limiting the study is discussed above There is no definite CT evidence of pulmonary embolism. Electronically signed by: Kendell Monique MD (01/18/2020 6:28 PM) [id number] DICTATED and SIGNED BY: KENDELL MONIQUE MD DATE: 01/18/201827 INDICATION: Abdominal pain TECHNIQUE: Sequential axial images through the abdomen and pelvis obtained without IV contrast. Sagittal and coronal reformatted images were reconstructed from the axial data and reviewed. Comparisons: None FINDINGS: Heart size is normal. No pericardial effusion. Visualized lung bases are clear. No pleural effusion. Diffuse hepatic steatosis. Spleen, and adrenals are unremarkable. Mild fat stranding surrounding the pancreas. No peripancreatic fluid collection. Gallbladder is distended. No perinephric inflammation or hydronephrosis. Evaluation for calculi limited secondary to excretion phase the exam. Bladder is partially distended not well evaluated prostate is not enlarged. Large and small bowel are unremarkable. Appendix is normal. No free intra-abdominal air or fluid. No obstruction. Abdominal aorta has a normal course and caliber. No enlarged abdominal lymph nodes are identified. No suspicious osseous lesions or acute fractures. IMPRESSION: 1. Inflammatory changes surrounding the pancreas, may relate to pancreatitis. 2. Diffuse hepatic steatosis. Exposure: One or more of the following in the visualized dose reduction techniques were utilized for this examination: 1. Automated exposure control 2. Adjustment of the MA and/or KV according to patient size 3. Use of iterative of reconstructive technique Electronically signed by: Elma Jc MD (01/18/2020 8:35 PM) [facility] DICTATED and SIGNED BY: ELMA JC MD DATE: 01/18/202034 XR CHEST 1V INDICATION: Reason: CP / Spl. Instructions: / History: . COMPARISON STUDY: 01/18/2020. FINDINGS: Lungs: Normal lung volume. No pulmonary mass or consolidation. The tracheobronchial tree and hilar structures are normal. Pleura: No pleural effusion or pneumothorax. Heart and Mediastinum: The cardiomediastinal silhouette is normal. The great vessels of the thorax are normal. IMPRESSION: No acute cardiopulmonary process. Electronically signed by: Sincere Mitchell MD (03/16/2020 9:58 PM) [facility] DICTATED and SIGNED BY: SINCERE MITCHELL MD VTE Prophylaxis Ordered VTE Prophylaxis Devices: No VTE Pharmacological Prophylaxi: Yes Assessment/Plan Assessment/Plan IMPRESSION: 1. Inflammatory changes surrounding the pancreas, may relate to pancreatitis. 2. Diffuse hepatic steatosis. 3. Severe alcohol abuse 4. morbid obesity 5. GERD 6. INTRACTABLE ABDOMINAL PAIN 7. HYPERLIPIDEMIA 8. 4 mm noncalcified nodule seen involving the right upper lobe. This may represent an noncalcified granuloma 9. Obesity? obstructive sleep apnea-hypopnea syndrome. 102017 echo ascending aorta is DILATED at 4.2 cm (Correlate with BSA) 11. intractable nausea and vomiting 12. Hypertriglyceridemia plan admit consult GI IV FLUID SUPPORT IV PROTONIX ABD CT. IV PAIN CONTROL, DILAUDID 1 MG Q 3 HRS PRN, D/C IV MORPHINE NPO HOME MEDS DVT PROPHYLAXIS alcohol cessation discussed, educated 75 MIN pt exam, chart review, > 50% of time spent with exam, chart review, pt care coordination Justifications for Admission Other Justification ALLYSSA LIN MD Mar 17, 2020 10:41
--- NOTE | 2020-03-17 11:53 | PDOC2 ---
GI CONSULT Date of Service: DATE: 03/17/20 TIME: 11:39 HPI: HPI: 44 y/o male who has seen Dr. Meza in the past. To ER w/ epigastric/LUQ pain with radiation into left chest associated w/ n/v. Gradual onset after eating a ribeye steak on Saturday. I asked about alcohol - "no beers!" - then "3.5 beers." We saw him in 2018 for pancreatitis possibly related to alcohol and/or hypertriglyceridemia. Issues w/ resp failure (required intubation) and DENISHA then. Also had C Diff treated w/ vanco. We saw him in 12/2019 for pancreatitis. Reports drinking less alcohol compared to past. Trigs 2246 and A1c 6.7 then. Quickly improved then w/ insulin drip. We recommended low fat diet and outpt follow-up for management of DM and hypertriglyceridemia along w/ follow-up OV at GI clinic, also avoidance of alcohol. In between last discharge and Saturday, no issues w/ abdominal pain. Didn't follow-up w/ GI as discussed but has seen PCP since discharge. Says he "doubled-up on my omega 3s" and is taking a statin (can't remember which). H/o GERD controlled w/ Prevacid QD. No dysphagia, n/v, diarrhea, constipation, hematochezia, melena, or weight loss. EGD in 1997 w/ reflux. Colonoscopy in 1999 w/ anal fissure. No GB history - no gallstones on US in 2018. Hepatic steatosis on imaging. No PUD history. Takes Tramadol and PRN ibuprofen. PMH: PMH: HTN, DM, HLD, anxiety, depression, chronic back pain, ascending aortic aneurysm, nephrolithiasis, epidural abscess bilateral knee surgeries, back surgeries, neck surgery FH: Family History: No pertinent hx Social History: Smoke: <1 pack per day (chewing tobacco) ALCOHOL: other (heavier in the past, says less now) Drugs: Marijuana (+marijunana 2017) ROS: GEN: Denies fevers, chills, sweats HEENT: Denies blurred vision, sore throat CV: Denies chest pain RESP: Denies shortness of air, cough GI: Per HPI : Denies hematuria, dysuria ENDO: Denies weight changes NEURO: Denies confusion, dizziness MSK: Denies weakness, joint pain/swelling SKIN: Denies jaundice, pruritus Vitals: Vitals: Vital Signs Date Time Temp Pulse Resp B/P (MAP) Pulse Ox O2 Delivery O2 Flow Rate FiO2 03/17/20 11:05 100.1 103 17 139/86 (103) 99 Room Air 100.1 Labs: Labs: Laboratory Tests Test 03/16/20 21:20 White Blood Count 16.8 x10^3/uL (4.0-11.0) Red Blood Count 5.31 x10^6/uL (4.30-5.70) Hemoglobin 15.3 g/dL (13.0-17.5) Hematocrit 46.7 % (39.0-53.0) Mean Corpuscular Volume 88 fL (79-100) Mean Corpuscular Hemoglobin 29 pg (25-35) Mean Corpuscular Hemoglobin Concent 33 g/dL (31-37) Red Cell Distribution Width 17.1 % (11.5-14.5) Platelet Count 390 x10^3/uL (140-400) Neutrophils (%) (Auto) 88 % (31-73) Lymphocytes (%) (Auto) 5 % (24-48) Monocytes (%) (Auto) 7 % (0-9) Eosinophils (%) (Auto) 0 % (0-3) Basophils (%) (Auto) 0 % (0-3) Neutrophils # (Auto) 14.7 x10^3/uL (1.8-7.7) Lymphocytes # (Auto) 0.8 x10^3/uL (1.0-4.8) Monocytes # (Auto) 1.2 x10^3/uL (0.0-1.1) Eosinophils # (Auto) 0.0 x10^3/uL (0.0-0.7) Basophils # (Auto) 0.1 x10^3/uL (0.0-0.2) Segmented Neutrophils % 88 % (35-66) Band Neutrophils % 5 % (0-9) Lymphocytes % 3 % (24-48) Monocytes % 4 % (0-10) Toxic Granulation Slight Platelet Estimate Adequate (ADEQUATE) Anisocytosis Slight Sodium Level 135 mmol/L (136-145) Potassium Level 4.0 mmol/L (3.5-5.1) Chloride Level 97 mmol/L (98-107) Carbon Dioxide Level 19 mmol/L (21-32) Anion Gap 19 (6-14) Blood Urea Nitrogen 12 mg/dL (8-26) Creatinine 1.2 mg/dL (0.7-1.3) Estimated GFR (Cockcroft-Gault) 65.5 BUN/Creatinine Ratio 10 (6-20) Glucose Level 233 mg/dL (70-99) Calcium Level 9.1 mg/dL (8.5-10.1) Magnesium Level 1.7 mg/dL (1.8-2.4) Total Bilirubin 1.1 mg/dL (0.2-1.0) Aspartate Amino Transf (AST/SGOT) 53 U/L (15-37) Alanine Aminotransferase (ALT/SGPT) 101 U/L (16-63) Alkaline Phosphatase 117 U/L (46-116) Troponin I Quantitative < 0.017 ng/mL (0.000-0.055) Total Protein 7.6 g/dL (6.4-8.2) Albumin 3.7 g/dL (3.4-5.0) Albumin/Globulin Ratio 0.9 (1.0-1.7) Triglycerides Level 1166 mg/dL (0-150) Lipase 1625 U/L (73-393) Allergies: Coded Allergies: No Known Drug Allergies (Unverified , 09/21/15) Medications: Current Medications Medications (Trade) Dose Ordered Sig/Yamile Route PRN Reason Start Time Stop Time Status Last Admin Dose Admin Sodium Chloride 1,000 ml @ 1,000 mls/hr 1X ONCE IV 03/16/20 21:30 03/16/20 22:29 DC 03/16/20 21:33 Ondansetron HCl (Zofran) 4 mg 1X ONCE IVP 03/16/20 21:30 03/16/20 21:31 DC 03/16/20 21:34 Morphine Sulfate (Morphine Sulfate) 4 mg 1X ONCE IV 03/16/20 21:30 03/16/20 21:31 DC 03/16/20 21:34 Morphine Sulfate (Morphine Sulfate) 4 mg 1X ONCE IV 03/16/20 23:00 03/16/20 23:01 DC 03/16/20 22:59 Ondansetron HCl (Zofran) 4 mg PRN Q6HRS PRN IV NAUSEA/VOMITING 1ST CHOICE 03/16/20 23:45 03/17/20 23:44 03/17/20 09:33 Morphine Sulfate (Morphine Sulfate) 4 mg PRN Q2HR PRN IV SEVERE PAIN 7-10 03/16/20 23:45 03/17/20 23:44 03/17/20 09:33 Insulin Human Lispro (HumaLOG) 20 units ONCE ONCE SQ 03/17/20 00:30 03/17/20 00:31 DC 03/17/20 00:32 Zolpidem Tartrate (Ambien) 5 mg 1X ONCE PO 03/17/20 02:00 03/17/20 02:01 DC 03/17/20 01:59 Imaging: Imaging: CXR 03/16 IMPRESSION: No acute cardiopulmonary process. PE: GEN: uncomfortable HEENT: Atraumatic, PERRL LUNGS: some diminished anteriorly HEART: mildly tachycardic ABD: quiet - a few gurgles, epigastric to LUQ discomfort - holding this area w/ ice pack EXTREMITY: No edema SKIN: No rashes, no jaundice NEURO/PSYCH: A & O 3 A/P: A/P: Recurrent pancreatitis - hypertriglyceridemia, h/o alcohol use - no gallstones on US in 2018 Low grade fever Leukocytosis, elevated LFTs (noted in past) GERD - on PPI CRC screen - normal except anal fissure 1999 H/o C Diff Hepatic steatosis - on past imaging -- No abdominal imaging - check CT. He c/o significant upper abd pain. Stay NPO and monitor labs. IVF, home meds, and hypertriglyceridemia treatment per Dr. Borjas. IV PPI. Reviewed notes from last admission - cardiology recommended to avoid fenofibrate then, I believe due to concern for possible adverse reactions include pancreatitis and abnormal LFTs. Statin + omega 3 has improved triglycerides from last admission but they are still quiet elevated. Will review this with Dr. Meza. MARILYN VASQUEZ Mar 17, 2020 11:53
[2020-03-17] MEDS: PANTOPRAZOLE IV PUSH 40 MG VIAL. IVP SCH ×2 (12:10→17:59)
[2020-03-17] MEDS ORDERED: CALCIUM CARBONATE 500 MG TAB.CHEW PO PRN (12:30)
[2020-03-17] MEDS ORDERED: ONDANSETRON PF 4 MG/2 ML VIAL. IV PRN (12:45)
[2020-03-17] MEDS ORDERED: LORazepam 0.5 MG TABLET PO PRN (12:45)
[2020-03-17] MEDS ORDERED: ALBUTEROL SULFATE 2.5 MG/3 ML NEBU. NEB PRN (12:45)
[2020-03-17] MEDS ORDERED: SODIUM PHOSPHATES 19/7GM 133 ML ENEMA. PR PRN (12:45)
[2020-03-17] MEDS ORDERED: DOCUSATE SODIUM 100 MG CAPSULE. PO PRN (12:45)
[2020-03-17] MEDS ORDERED: 0.9 % SODIUM CHLORIDE 10 ML DISP.SYRIN. IV PRN (12:45)
[2020-03-17] MEDS: DULoxetine HCL 30 MG CAPSULE.DR PO SCH (13:00)
[2020-03-17] MEDS: ATORVASTATIN CALCIUM 40 MG TABLET. PO SCH (13:00)
[2020-03-17] MEDS ORDERED: IOHEXOL 300 MG/ML 100ML VIAL. IV ONE (13:00)
[2020-03-17] MEDS: amLODIPine BESYLATE 10 MG TABLET PO SCH (13:00)
[2020-03-17] MEDS ORDERED: cloNIDine HCL 0.1 MG TABLET PO PRN (13:30)
[2020-03-17] MEDS ORDERED: CONTRAST GIVEN. MC PRN (13:30)
[2020-03-17] MEDS ORDERED: diphenhydrAMINE 50 MG/ML VIAL IVP PRN (13:30)
[2020-03-17] MEDS ORDERED: HALOPERIDOL LACTATE 5 MG/ML VIAL. IVP PRN (13:30)
--- NOTE | 2020-03-17 13:59 | RAD ---
EXAM: Abdomen and pelvis CT with intravenous contrast. HISTORY: Recurrent pancreatitis. TECHNIQUE: Computed tomographic images of the abdomen and pelvis were obtained following the administ ration of intravenous contrast. Multiplanar reformatting was performed. *One or more of the following individualized dose reduction techniques were utilized for this examina tion: 1. Automated exposure control. 2. Adjustment of the mA and/or kV according to patient size. 3. Use of iterative reconstruction technique. COMPARISON: 01/18/2020. FINDINGS: Evaluation of the lower thorax demonstrates basilar atelectasis. There is no infiltrate or pleural effusion. There is no suspicious pulmonary nodule. The heart is normal in size. There is hepa tomegaly and hepatic steatosis. There is no suspicious hepatic lesion. The gallbladder, spleen, adren al glands and kidneys are unremarkable. There is diffuse peripancreatic stranding and trace peripancreatic free fluid consistent with acute p ancreatitis. There are regions of hypodensity within the pancreatic body and tail measuring up to 5.0 cm. There is no bowel obstruction. The bladder is unremarkable. The aorta is normal in caliber. There are prominent lymph nodes within the root of mesentery which are likely reactive in etiology. There is n o suspicious osseous lesion. There are degenerative changes throughout the visualized spine, primaril y at the lower lumbar levels. IMPRESSION: 1. Acute pancreatitis with associated extensive peripancreatic stranding and trace surrounding free f luid. There are ill-defined areas of hypodensity within the pancreatic body and tail measuring up to 5.0 cm. This may be due to decreased perfusion in the setting of parenchymal inflammation. However, e galo necrosis or an underlying mass is not excluded. Short-term follow-up is indicated. 2. Hepatomegaly and hepatic steatosis. Electronically signed by: Carina Solomon MD (03/17/2020 1:57 PM) [facility]
[2020-03-17] MEDS ORDERED: MULTIVIT INFUSN,ADULT 4,VIT K 10 ML, THIAMINE INJ 100 MG, FOLIC ACID INJ 1 MG in IV NOR... IV ONE (14:00)
[2020-03-17] MEDS: HYDROmorphone 2 MG/ML VIAL IVP PRN ×3 (14:17→21:15)
[2020-03-17] MEDS: ENOXAPARIN 40 MG/0.4 ML SYRINGE. SQ SCH (14:24)
[2020-03-17] MEDS ORDERED: DEXTROSE 50% 25 GM / 50ML DISP.SYRIN. IV PRN (17:30)
[2020-03-17] MEDS ORDERED: INSULIN LISPRO 300 UNITS/3 ML VIAL. SQ SCH (17:30)
[2020-03-17] MEDS: METOPROLOL TART IMMED RELEASE 50 MG TABLET. PO SCH (21:00)
[2020-03-17] MEDS: LORazepam 0.5 MG TABLET PO SCH (21:00)
[2020-03-17] MEDS: OMEGA-3 FATTY ACIDS/FISH OIL 1,000 MG CAPSULE. PO SCH (21:00)
[2020-03-18] MEDS: HYDROmorphone 2 MG/ML VIAL IVP PRN ×7 (00:17→21:46)
[2020-03-18] MEDS: ENOXAPARIN 40 MG/0.4 ML SYRINGE. SQ SCH ×2 (00:49→12:07)
[2020-03-18 03:03] VITALS: BP 143/82
[2020-03-18] MEDS: ACETAMINOPHEN 325 MG TABLET. PO PRN ×2 (04:07→15:00)
[2020-03-18] MEDS: INSULIN LISPRO 300 UNITS/3 ML VIAL. SQ SCH ×3 (06:22→16:51)
[2020-03-18 07:00] VITALS: BP 138/88
[2020-03-18 08:20] LABS: BASO # 0.1 x10^3/uL (0.0-0.2); BASO % 1 % (0-3); EOS # 0.1 x10^3/uL (0.0-0.7); EOS % 1 % (0-3); HEMATOCRIT 41.8 % (39.0-53.0); HEMOGLOBIN 13.6 g/dL (13.0-17.5); LYMPH # 1.5 x10^3/uL (1.0-4.8); LYMPH % 8 % (24-48); MEAN CORPUSCULAR HEMOGLOBIN 30 pg (25-35); MEAN CORPUSCULAR HGB CONC 33 g/dL (31-37); MEAN CORPUSCULAR VOLUME 90 fL (79-100); MONO # 0.9 x10^3/uL (0.0-1.1); MONO % 5 % (0-9); NEUT # 16.5 x10^3/uL (1.8-7.7); NEUT % 86 % (31-73); PLATELET COUNT 246 x10^3/uL (140-400); RED BLOOD COUNT 4.63 x10^6/uL (4.30-5.70); RED CELL DISTRIBUTION WIDTH 17.5 % (11.5-14.5); WHITE BLOOD COUNT 19.1 x10^3/uL (4.0-11.0)
[2020-03-18] MEDS: THIAMINE 100 MG TABLET. PO SCH (08:46)
[2020-03-18] MEDS: ATORVASTATIN CALCIUM 40 MG TABLET. PO SCH (08:47)
[2020-03-18] MEDS: OMEGA-3 FATTY ACIDS/FISH OIL 1,000 MG CAPSULE. PO SCH ×2 (08:47→20:41)
[2020-03-18] MEDS: FOLIC ACID 1 MG TABLET. PO SCH (08:47)
[2020-03-18] MEDS: METOPROLOL TART IMMED RELEASE 50 MG TABLET. PO SCH ×2 (08:47→20:42)
[2020-03-18] MEDS: MULTIVITAMIN with MINERAL TABLET. PO SCH ×2 (08:47→08:53)
[2020-03-18] MEDS: DULoxetine HCL 30 MG CAPSULE.DR PO SCH (08:47)
[2020-03-18] MEDS: amLODIPine BESYLATE 10 MG TABLET PO SCH (08:47)
[2020-03-18] MEDS: PANTOPRAZOLE IV PUSH 40 MG VIAL. IVP SCH ×2 (08:49→16:44)
[2020-03-18] MEDS ORDERED: NON FORMULARY ITEM (Lansoprazole 1 CAP) PO SCH (09:00)
[2020-03-18 09:02] LABS: ALBUMIN 2.7 g/dL (3.4-5.0); ALBUMIN/GLOBULIN RATIO 0.6 (1.0-1.7); CALCIUM 8.7 mg/dL (8.5-10.1); CREATININE 0.7 mg/dL (0.7-1.3); POTASSIUM 4.4 mmol/L (3.5-5.1); TOTAL BILIRUBIN 1.2 mg/dL (0.2-1.0); TOTAL PROTEIN 6.9 g/dL (6.4-8.2)
--- NOTE | 2020-03-18 09:22 | PDOC ---
Date of Service: DATE: 03/18/20 TIME: 09:07 Subjective: Subjective: "I feel so sick." Terrible upper abd pain, nausea. Objective: Vital Signs: Vital Signs Date Time Temp Pulse Resp B/P (MAP) Pulse Ox O2 Delivery O2 Flow Rate FiO2 03/18/20 08:47 107 138/88 03/18/20 08:00 Room Air 03/18/20 07:00 100.4 16 95 100.4 Labs: Laboratory Tests Test 03/17/20 14:30 03/18/20 07:35 Troponin I Quantitative < 0.017 ng/mL White Blood Count 19.1 x10^3/uL Red Blood Count 4.63 x10^6/uL Hemoglobin 13.6 g/dL Hematocrit 41.8 % Mean Corpuscular Volume 90 fL Mean Corpuscular Hemoglobin 30 pg Mean Corpuscular Hemoglobin Concent 33 g/dL Red Cell Distribution Width 17.5 % Platelet Count 246 x10^3/uL Neutrophils (%) (Auto) 86 % Lymphocytes (%) (Auto) 8 % Monocytes (%) (Auto) 5 % Eosinophils (%) (Auto) 1 % Basophils (%) (Auto) 1 % Neutrophils # (Auto) 16.5 x10^3/uL Lymphocytes # (Auto) 1.5 x10^3/uL Monocytes # (Auto) 0.9 x10^3/uL Eosinophils # (Auto) 0.1 x10^3/uL Basophils # (Auto) 0.1 x10^3/uL Sodium Level 131 mmol/L Potassium Level 4.4 mmol/L Chloride Level 97 mmol/L Carbon Dioxide Level 23 mmol/L Anion Gap 11 Blood Urea Nitrogen 10 mg/dL Creatinine 0.7 mg/dL Estimated GFR (Cockcroft-Gault) 122.0 BUN/Creatinine Ratio 14 Glucose Level 255 mg/dL Calcium Level 8.7 mg/dL Total Bilirubin 1.2 mg/dL Aspartate Amino Transf (AST/SGOT) 30 U/L Alanine Aminotransferase (ALT/SGPT) 46 U/L Alkaline Phosphatase 101 U/L Total Protein 6.9 g/dL Albumin 2.7 g/dL Albumin/Globulin Ratio 0.6 Lipase 392 U/L Imaging: CT A/P FINDINGS: Evaluation of the lower thorax demonstrates basilar atelectasis. There is no infiltrate or pleural effusion. There is no suspicious pulmonary nodule. The heart is normal in size. There is hepatomegaly and hepatic steatosis. There is no suspicious hepatic lesion. The gallbladder, spleen, adrenal glands and kidneys are unremarkable. There is diffuse peripancreatic stranding and trace peripancreatic free fluid consistent with acute pancreatitis. There are regions of hypodensity within the pancreatic body and tail measuring up to 5.0 cm. There is no bowel obstruction. The bladder is unremarkable. The aorta is normal in caliber. There are prominent lymph nodes within the root of mesentery which are likely reactive in etiology. There is no suspicious osseous lesion. There are degenerative changes throughout the visualized spine, primarily at the lower lumbar levels. IMPRESSION: 1. Acute pancreatitis with associated extensive peripancreatic stranding and trace surrounding free fluid. There are ill-defined areas of hypodensity within the pancreatic body and tail measuring up to 5.0 cm. This may be due to decreased perfusion in the setting of parenchymal inflammation. However, early necrosis or an underlying mass is not excluded. Short-term follow-up is indicated. 2. Hepatomegaly and hepatic steatosis. PE: GEN: uncomfortable - seems worse today LUNGS: diminished anteriorly HEART: mildly tachycardic ABD: quiet - few if any BS, epigastric to LUQ tenderness to light palpation, soft NEURO/PSYCH: A & O 3 A/P: Recurrent pancreatitis - hypertriglyceridemia, h/o alcohol use - no gallstones on US in 2018 - CT as above w/ inflammation, fluid, 5cm hypodensity - cannot exclude early necrosis Low grade fever, mild tachycardia Leukocytosis (worse), elevated LFTs (resolving) -- No significant improvement today - would not advance diet yet. Recheck labs tomorrow, consider interval CT later. Had cardiology eval last time re: triglycerides - has been on statin and omega 3 - treated w/ IV insulin last admission. Justicifation of Admission Dx: Justifications for Admission: Justification of Admission Dx: Yes MARILYN VASQUEZ Mar 18, 2020 09:22
--- NOTE | 2020-03-18 09:35 | NUR ---
SW following. Discussed with RN, pt from home with family, room air, NPO with sips with meds. Per RN, pt having an echo today. NATACHA consulted for ETOH use. Per GI note, recheck labs tomorrow and consider interval CT later. LINO will continue to follow. Addendum: 03/18/20 at 1359 by TAYLER HUYNH Kandis WOOD) met with pt, pt was provided with resources. Pt did not feel he needed any treatment at this time. LINO will continue to follow.
[2020-03-18] MEDS ORDERED: PERFLUTREN PROTEIN-A MICROSPHR 0.22 MG/ML 3 ML VIAL. IV ONE ×2 (10:47→15:30)
[2020-03-18 11:00] VITALS: BP 148/95
--- NOTE | 2020-03-18 11:08 | PDOC ---
PROGRESS NOTES Date of Service: DATE: 03/18/20 TIME: 11:07 Chief Complaint Chief Complaint VTE Prophylaxis Ordered VTE Prophylaxis Devices: No VTE Pharmacological Prophylaxi: Yes Assessment/Plan Assessment/Plan IMPRESSION: 1. Inflammatory changes surrounding the pancreas, may relate to pancreatitis. 2. Diffuse hepatic steatosis. 3. Severe alcohol abuse 4. morbid obesity 5. GERD 6. INTRACTABLE ABDOMINAL PAIN 7. HYPERLIPIDEMIA 8. 4 mm noncalcified nodule seen involving the right upper lobe. This may represent an noncalcified granuloma 9. Obesity? obstructive sleep apnea-hypopnea syndrome. 10. 2018 echo ascending aorta is DILATED at 4.2 cm (Correlate with BSA) 11. intractable nausea and vomiting 12. Hypertriglyceridemia plan admit consult GI IV FLUID SUPPORT IV PROTONIX ABD CT. IV PAIN CONTROL, DILAUDID 1 MG Q 3 HRS PRN, D/C IV MORPHINE NPO HOME MEDS DVT PROPHYLAXIS alcohol cessation discussed, educated 38 MIN pt exam, chart review, > 50% of time spent with exam, chart review, pt care coordination Justifications for Admission Justifications for Admission Other Justification History of Present Illness History of Present Illness Identification/Chief Complaint Chief Complaint seen in er with acute pancreatitis patient reports onset of epigastric pain about 3 days ago. Prior to onset of symptoms, he drank 4 beers and ate a large ribeye steak he states. Reports compliance with home medication regimen. Associated nausea and nonbloody/nonbilious emesis. No diarrhea, chest pain, dyspnea. Admitted a couple months ago for CP, found to have pancreatitis secondary to hypertriglyceridemia. lipase = [phone] Mr. White is a 44 old male who presented with acute pancreatitis secondary to hypertriglyceridemia. Consultations were placed to cardiology and GI IN JANUARY 18. Past Medical History Past Medical History Past Medical History Past Medical History Past Medical History: Anxiety, Diabetes-Type I, GERD, Hypertension Past Surgical History: Knee Replacement, Other Additional Past Surgical Histo: BILATERAL KNEE REPLACEMENT, NECK SURGERY, WISDOM TEETH EXTRACTED. Smoking Status: Former Smoker Alcohol Use: Heavy Drug Use: None H/o GERD controlled w/ Prevacid QD. No dysphagia, n/v, diarrhea, constipation, hematochezia, melena, or weight loss. EGD in 1997 w/ reflux. Colonoscopy in 1999 w/ anal fissure. No GB history - no gallstones on US in 2018. Hepatic steatosis on imaging FHX OBESITY Cardiovascular: HTN, Hyperlipidemia Pulmonary: No pertinent hx CENTRAL NERVOUS SYSTEM: Other GI: GERD Heme/Onc: No pertinent hx Hepatobiliary: No pertinent hx Psych: No pertinent hx Musculoskeletal: low back pain, Osteoarthritis Rheumatologic: No pertinent hx Infectious disease: No pertinent hx Renal/: No pertinent hx Endocrine: Diabetes Past Surgical History Past Surgical History: Arthroscopy, Other Family History Family History: Heart Disease Social History Smoke: <1 pack per day ALCOHOL: heavy Drugs: None, Marijuana Vitals Vitals Vital Signs Date Time Temp Pulse Resp B/P (MAP) Pulse Ox O2 Delivery O2 Flow Rate FiO2 03/18/20 08:47 107 138/88 03/18/20 08:00 Room Air 03/18/20 07:00 100.4 16 95 100.4 Physical Exam Physical Exam ENT: MMM. Posterior OP clear. Neck: Supple. NT. No JVD. CV: RRR. Peripheral pulses intact. Resp: CTAB. Mild tachypnea. Abd: Soft. Nondistended. Obese. Epigastric tenderness without peritoneal signs. MSK: No peripheral cyanosis. No edema. Neuro: Awake and alert. Skin. Warm. Dry. Psych: Appropriate mood & affect. General: Alert, Oriented X3, Cooperative, mild acute distress Heart: Regular rate, Normal S1, Normal S2 Lungs: Clear Abdomen: Normal bowel sounds, Soft, Other (LUQ pain) Extremities: No clubbing, No cyanosis Skin: No rashes, No breakdown General: Alert, Oriented X3, Cooperative, mild distress, moderate distress HEENT: Atraumatic, EOMI, Mucous membr. moist/pink Lungs: Clear to auscultation, Normal air movement Heart: S1S2, RRR, no thrills, no rubs Breasts: Not examined Abdomen: Normal bowel sounds, Soft, No masses Rectal Exam: not examined PELVIC: Examination not indicated Extremities: No cyanosis Neuro: Normal speech, Sensation intact, Cranial nerves 3-12 NL Psych/Mental Status: Mental status NL, Mood NL General: Alert, Oriented X3, Cooperative, No acute distress, mild distress Heart: Regular rate Lungs: Clear Abdomen: Normal bowel sounds, Soft, No masses Extremities: No clubbing, No cyanosis, No edema Labs LABS Laboratory Tests Test 03/17/20 14:30 03/18/20 07:35 Troponin I Quantitative < 0.017 ng/mL (0.000-0.055) White Blood Count 19.1 x10^3/uL (4.0-11.0) Red Blood Count 4.63 x10^6/uL (4.30-5.70) Hemoglobin 13.6 g/dL (13.0-17.5) Hematocrit 41.8 % (39.0-53.0) Mean Corpuscular Volume 90 fL (79-100) Mean Corpuscular Hemoglobin 30 pg (25-35) Mean Corpuscular Hemoglobin Concent 33 g/dL (31-37) Red Cell Distribution Width 17.5 % (11.5-14.5) Platelet Count 246 x10^3/uL (140-400) Neutrophils (%) (Auto) 86 % (31-73) Lymphocytes (%) (Auto) 8 % (24-48) Monocytes (%) (Auto) 5 % (0-9) Eosinophils (%) (Auto) 1 % (0-3) Basophils (%) (Auto) 1 % (0-3) Neutrophils # (Auto) 16.5 x10^3/uL (1.8-7.7) Lymphocytes # (Auto) 1.5 x10^3/uL (1.0-4.8) Monocytes # (Auto) 0.9 x10^3/uL (0.0-1.1) Eosinophils # (Auto) 0.1 x10^3/uL (0.0-0.7) Basophils # (Auto) 0.1 x10^3/uL (0.0-0.2) Sodium Level 131 mmol/L (136-145) Potassium Level 4.4 mmol/L (3.5-5.1) Chloride Level 97 mmol/L (98-107) Carbon Dioxide Level 23 mmol/L (21-32) Anion Gap 11 (6-14) Blood Urea Nitrogen 10 mg/dL (8-26) Creatinine 0.7 mg/dL (0.7-1.3) Estimated GFR (Cockcroft-Gault) 122.0 BUN/Creatinine Ratio 14 (6-20) Glucose Level 255 mg/dL (70-99) Calcium Level 8.7 mg/dL (8.5-10.1) Total Bilirubin 1.2 mg/dL (0.2-1.0) Aspartate Amino Transf (AST/SGOT) 30 U/L (15-37) Alanine Aminotransferase (ALT/SGPT) 46 U/L (16-63) Alkaline Phosphatase 101 U/L (46-116) Total Protein 6.9 g/dL (6.4-8.2) Albumin 2.7 g/dL (3.4-5.0) Albumin/Globulin Ratio 0.6 (1.0-1.7) Lipase 392 U/L (73-393) Assessment and Plan Assessmemt and Plan Problems Medical Problems: (1) Hypertriglyceridemia Status: Acute (2) Intractable nausea and vomiting Status: Acute (3) Pancreatitis Status: Acute Comment Review of Relevant I have reviewed the following items franklyn (where applicable) has been applied. Labs Laboratory Tests Test 03/16/20 21:20 03/17/20 14:30 03/18/20 07:35 White Blood Count 16.8 x10^3/uL (4.0-11.0) 19.1 x10^3/uL (4.0-11.0) Red Blood Count 5.31 x10^6/uL (4.30-5.70) 4.63 x10^6/uL (4.30-5.70) Hemoglobin 15.3 g/dL (13.0-17.5) 13.6 g/dL (13.0-17.5) Hematocrit 46.7 % (39.0-53.0) 41.8 % (39.0-53.0) Mean Corpuscular Volume 88 fL (79-100) 90 fL (79-100) Mean Corpuscular Hemoglobin 29 pg (25-35) 30 pg (25-35) Mean Corpuscular Hemoglobin Concent 33 g/dL (31-37) 33 g/dL (31-37) Red Cell Distribution Width 17.1 % (11.5-14.5) 17.5 % (11.5-14.5) Platelet Count 390 x10^3/uL (140-400) 246 x10^3/uL (140-400) Neutrophils (%) (Auto) 88 % (31-73) 86 % (31-73) Lymphocytes (%) (Auto) 5 % (24-48) 8 % (24-48) Monocytes (%) (Auto) 7 % (0-9) 5 % (0-9) Eosinophils (%) (Auto) 0 % (0-3) 1 % (0-3) Basophils (%) (Auto) 0 % (0-3) 1 % (0-3) Neutrophils # (Auto) 14.7 x10^3/uL (1.8-7.7) 16.5 x10^3/uL (1.8-7.7) Lymphocytes # (Auto) 0.8 x10^3/uL (1.0-4.8) 1.5 x10^3/uL (1.0-4.8) Monocytes # (Auto) 1.2 x10^3/uL (0.0-1.1) 0.9 x10^3/uL (0.0-1.1) Eosinophils # (Auto) 0.0 x10^3/uL (0.0-0.7) 0.1 x10^3/uL (0.0-0.7) Basophils # (Auto) 0.1 x10^3/uL (0.0-0.2) 0.1 x10^3/uL (0.0-0.2) Segmented Neutrophils % 88 % (35-66) Band Neutrophils % 5 % (0-9) Lymphocytes % 3 % (24-48) Monocytes % 4 % (0-10) Toxic Granulation Slight Platelet Estimate Adequate (ADEQUATE) Anisocytosis Slight Sodium Level 135 mmol/L (136-145) 131 mmol/L (136-145) Potassium Level 4.0 mmol/L (3.5-5.1) 4.4 mmol/L (3.5-5.1) Chloride Level 97 mmol/L (98-107) 97 mmol/L (98-107) Carbon Dioxide Level 19 mmol/L (21-32) 23 mmol/L (21-32) Anion Gap 19 (6-14) 11 (6-14) Blood Urea Nitrogen 12 mg/dL (8-26) 10 mg/dL (8-26) Creatinine 1.2 mg/dL (0.7-1.3) 0.7 mg/dL (0.7-1.3) Estimated GFR (Cockcroft-Gault) 65.5 122.0 BUN/Creatinine Ratio 10 (6-20) 14 (6-20) Glucose Level 233 mg/dL (70-99) 255 mg/dL (70-99) Calcium Level 9.1 mg/dL (8.5-10.1) 8.7 mg/dL (8.5-10.1) Magnesium Level 1.7 mg/dL (1.8-2.4) Total Bilirubin 1.1 mg/dL (0.2-1.0) 1.2 mg/dL (0.2-1.0) Aspartate Amino Transf (AST/SGOT) 53 U/L (15-37) 30 U/L (15-37) Alanine Aminotransferase (ALT/SGPT) 101 U/L (16-63) 46 U/L (16-63) Alkaline Phosphatase 117 U/L (46-116) 101 U/L (46-116) Troponin I Quantitative < 0.017 ng/mL (0.000-0.055) < 0.017 ng/mL (0.000-0.055) Total Protein 7.6 g/dL (6.4-8.2) 6.9 g/dL (6.4-8.2) Albumin 3.7 g/dL (3.4-5.0) 2.7 g/dL (3.4-5.0) Albumin/Globulin Ratio 0.9 (1.0-1.7) 0.6 (1.0-1.7) Triglycerides Level 1166 mg/dL (0-150) Lipase 1625 U/L (73-393) 392 U/L (73-393) Laboratory Tests Test 03/17/20 14:30 03/18/20 07:35 Troponin I Quantitative < 0.017 ng/mL (0.000-0.055) White Blood Count 19.1 x10^3/uL (4.0-11.0) Red Blood Count 4.63 x10^6/uL (4.30-5.70) Hemoglobin 13.6 g/dL (13.0-17.5) Hematocrit 41.8 % (39.0-53.0) Mean Corpuscular Volume 90 fL (79-100) Mean Corpuscular Hemoglobin 30 pg (25-35) Mean Corpuscular Hemoglobin Concent 33 g/dL (31-37) Red Cell Distribution Width 17.5 % (11.5-14.5) Platelet Count 246 x10^3/uL (140-400) Neutrophils (%) (Auto) 86 % (31-73) Lymphocytes (%) (Auto) 8 % (24-48) Monocytes (%) (Auto) 5 % (0-9) Eosinophils (%) (Auto) 1 % (0-3) Basophils (%) (Auto) 1 % (0-3) Neutrophils # (Auto) 16.5 x10^3/uL (1.8-7.7) Lymphocytes # (Auto) 1.5 x10^3/uL (1.0-4.8) Monocytes # (Auto) 0.9 x10^3/uL (0.0-1.1) Eosinophils # (Auto) 0.1 x10^3/uL (0.0-0.7) Basophils # (Auto) 0.1 x10^3/uL (0.0-0.2) Sodium Level 131 mmol/L (136-145) Potassium Level 4.4 mmol/L (3.5-5.1) Chloride Level 97 mmol/L (98-107) Carbon Dioxide Level 23 mmol/L (21-32) Anion Gap 11 (6-14) Blood Urea Nitrogen 10 mg/dL (8-26) Creatinine 0.7 mg/dL (0.7-1.3) Estimated GFR (Cockcroft-Gault) 122.0 BUN/Creatinine Ratio 14 (6-20) Glucose Level 255 mg/dL (70-99) Calcium Level 8.7 mg/dL (8.5-10.1) Total Bilirubin 1.2 mg/dL (0.2-1.0) Aspartate Amino Transf (AST/SGOT) 30 U/L (15-37) Alanine Aminotransferase (ALT/SGPT) 46 U/L (16-63) Alkaline Phosphatase 101 U/L (46-116) Total Protein 6.9 g/dL (6.4-8.2) Albumin 2.7 g/dL (3.4-5.0) Albumin/Globulin Ratio 0.6 (1.0-1.7) Lipase 392 U/L (73-393) Medications Current Medications Sodium Chloride 1,000 ml @ 1,000 mls/hr 1X ONCE IV Last administered on 12/16/20at 21:33; Start 03/16/20 at 21:30; Stop 03/16/20 at 22:29; Status DC Ondansetron HCl (Zofran) 4 mg 1X ONCE IVP Last administered on 03/16/20at 21:34; Start 03/16/20 at 21:30; Stop 03/16/20 at 21:31; Status DC Morphine Sulfate (Morphine Sulfate) 4 mg 1X ONCE IV Last administered on 03/16/20at 21:34; Start 03/16/20 at 21:30; Stop 03/16/20 at 21:31; Status DC Morphine Sulfate (Morphine Sulfate) 4 mg 1X ONCE IV Last administered on 03/16/20at 22:59; Start 03/16/20 at 23:00; Stop 03/16/20 at 23:01; Status DC Ondansetron HCl (Zofran) 4 mg PRN Q6HRS PRN IV NAUSEA/VOMITING 1ST CHOICE Last administered on 03/17/20at 09:33; Start 03/16/20 at 23:45; Stop 03/17/20 at 23:44; Status DC Morphine Sulfate (Morphine Sulfate) 4 mg PRN Q2HR PRN IV SEVERE PAIN 7-10 Last administered on 03/17/20at 12:10; Start 03/16/20 at 23:45; Stop 03/17/20 at 12:58; Status DC Insulin Human Lispro (HumaLOG) 20 units ONCE ONCE SQ Last administered on 03/17/20at 00:32; Start 03/17/20 at 00:30; Stop 03/17/20 at 00:31; Status DC Zolpidem Tartrate (Ambien) 5 mg PRN QHS PRN PO INSOMNIA; Start 03/17/20 at 02:00 Zolpidem Tartrate (Ambien) 5 mg 1X ONCE PO Last administered on 03/17/20at 01:59; Start 03/17/20 at 02:00; Stop 03/17/20 at 02:01; Status DC Pantoprazole Sodium (PROTONIX VIAL for IV PUSH) 40 mg BIDAC IVP Last administered on 03/18/20at 08:49; Start 03/17/20 at 12:00 Amlodipine Besylate (Norvasc) 10 mg DAILY PO Last administered on 03/18/20 08:47; Start 03/17/20 at 13:00 Atorvastatin Calcium (Lipitor) 40 mg DAILY PO Last administered on 03/18/20at 08:47; Start 03/17/20 at 13:00 Gabapentin (Neurontin) 600 mg PRN BID PRN PO PAIN; Start 03/17/20 at 12:15 Lorazepam (Ativan) 0.5 mg HS PO ; Start 03/17/20 at 21:00 Calcium Carbonate/ Glycine (Tums) 500 mg PRN Q4HRS PRN PO INDIGESTION; Start 03/17/20 at 12:30 Duloxetine HCl (Cymbalta) 60 mg DAILY PO Last administered on 03/18/20at 08:47; Start 03/17/20 at 13:00 Non-Formulary Medication (Lansoprazole ) 1 cap DAILY PO ; Start 03/18/20 at 09:00; Status UNV Multivitamins (Thera M Plus) 1 tab DAILY PO Last administered on 03/18/20at 08:47; Start 03/18/20 at 09:00 Metoprolol Tartrate (Lopressor) 50 mg BID PO Last administered on 03/18/20at 08:47; Start 03/17/20 at 21:00 Fish Oil (Fish Oil) 2,000 mg BID PO Last administered on 03/18/20at 08:47; Start 03/17/20 at 21:00 Sodium Chloride (Normal Saline Flush) 3 ml QSHIFT PRN IV AFTER MEDS AND BLOOD DRAWS; Start 03/17/20 at 12:45 Multivitamins 10 ml/Thiamine HCl 100 mg/Folic Acid 1 mg/Sodium Chloride 1,011.2 ml @ 125 mls/ hr 1X ONCE IV Last administered on 03/17/20at 14:17; Start 03/17/20 at 14:00; Stop 03/17/20 at 22:05; Status DC Ondansetron HCl (Zofran) 4 mg PRN Q4HRS PRN IV NAUSEA/VOMITING; Start 03/17/20 at 12:45 Acetaminophen (Tylenol) 650 mg PRN Q4HRS PRN PO TEMP OVER 100.4F OR MILD PAIN Last administered on 03/18/20at 04:07; Start 03/17/20 at 12:45 Clonidine HCl (Catapres) 0.1 mg PRN Q6HRS PRN PO SBP>160 OR DBP>90; Start 03/17/20 at 12:45 Sodium Monofluorophosphate (Fleet Adult) 133 ml PRN DAILY PRN MS CONSTIPATION; Start 03/17/20 at 12:45 Docusate Sodium (Colace) 100 mg PRN BID PRN PO HARD STOOLS; Start 03/17/20 at 12:45 Albuterol Sulfate (Ventolin Neb Soln) 2.5 mg PRN Q4HRS PRN NEB SHORTNESS OF BREATH; Start 03/17/20 at 12:45 Lorazepam (Ativan) 0.5 mg PRN Q4HRS PRN PO ANXIETY / AGITATION; Start 03/17/20 at 12:45 Lorazepam (Ativan Inj) 2 mg PRN Q4HRS PRN IV ANXIETY / AGITATION Last administered on 03/18/20at 00:17; Start 03/17/20 at 12:45 Enoxaparin Sodium (Lovenox 40mg Syringe) 40 mg Q12H SQ Last administered on 03/18/20at 00:49; Start 03/17/20 at 13:00 Iohexol (Omnipaque 300 Mg/ml) 75 ml 1X ONCE IV Last administered on 03/17/20at 13:19; Start 03/17/20 at 13:00; Stop 03/17/20 at 13:14; Status DC Hydromorphone HCl (Dilaudid) 1 mg PRN Q3HRS PRN IVP MODERATE TO SEVERE PAIN Last administered on 03/18/20at 09:29; Start 03/17/20 at 13:00 Info (CONTRAST GIVEN -- Rx MONITORING) 1 each PRN DAILY PRN MC SEE COMMENTS; Start 03/17/20 at 13:30; Stop 03/19/20 at 13:29 Multivitamins (Thera M Plus) 1 tab DAILY PO ; Start 03/18/20 at 09:00 Folic Acid (Folic Acid) 1 mg DAILY PO Last administered on 03/18/20at 08:47; Start 03/18/20 at 09:00 Thiamine Mononitrate (Vitamin B-1) 100 mg DAILY PO Last administered on 03/18/20at 08:46; Start 03/18/20 at 09:00 Thiamine HCl 100 mg/Dextrose 51 ml @ 100 mls/hr DAILY IV ; Start 03/22/20 at 09:00; Stop 03/26/20 at 09:31; Status UNV Lorazepam (Ativan) 4 mg PRN Q1HR PRN PO For CIWA 8-14; Start 03/17/20 at 13:30 Lorazepam (Ativan) 8 mg PRN Q1HR PRN PO For CIWA 15 or greater; Start 03/17/20 at 13:30 Lorazepam (Ativan Inj) 2 mg PRN Q1HR PRN IV For CIWA 8-14; Start 03/17/20 at 13:30 Lorazepam (Ativan Inj) 4 mg PRN Q1HR PRN IV For CIWA 15 or greater; Start 03/17/20 at 13:30 Haloperidol Lactate (Haldol Inj) 5 mg PRN Q4HRS PRN IVP Hallucinatns,Confusn,Delirium; Start 03/17/20 at 13:30 Diphenhydramine HCl (Benadryl) 25 mg PRN Q15MIN PRN IVP EPS symptoms 2'Haldol admin; Start 03/17/20 at 13:30 Clonidine HCl (Catapres) 0.1 mg PRN Q1HR PRN PO SBP > 180 or DBP > 100, MRX3; Start 03/17/20 at 13:30 Lorazepam (Ativan Inj) 2 mg PRN Q15MIN PRN IV SEE COMMENTS; Start 03/17/20 at 13:30; Status UNV Lorazepam (Ativan Inj) 4 mg PRN Q15MIN PRN IV SEE COMMENTS; Start 03/17/20 at 13:30; Status UNV Insulin Human Lispro (HumaLOG) 0-5 UNITS TIDWMEALS SQ Last administered on 03/17/20at 18:05; Start 03/17/20 at 17:30; Stop 03/18/20 at 03:57; Status DC Dextrose (Dextrose 50%-Water Syringe) 12.5 gm PRN Q15MIN PRN IV SEE COMMENTS; Start 03/17/20 at 17:30 Insulin Human Lispro (HumaLOG) 0-5 UNITS Q6HRS SQ Last administered on 03/18/20at 06:22; Start 03/18/20 at 06:00 Perflutren Protein Type A Microsphe (Optison) 0.66 mg STK-MED ONCE IV ; Start 03/18/20 at 10:47; Stop 03/18/20 at 10:47; Status DC Active Scripts Active Atorvastatin Calcium 40 Mg Tablet 1 Tab PO DAILY Lovaza (Serena-3 Acid Ethyl Esters) 1 Gm Capsule 2 Cap PO BID 90 Days Reported Ativan (Lorazepam) 0.5 Mg Tablet 0.5 Mg PO HS Duloxetine Hcl 60 Mg Capsule.dr 1 Cap PO DAILY Gabapentin 300 Mg Capsule 2 Cap PO PRN BID PRN Humalog (Insulin Lispro) 100 Unit/1 Ml Vial Unknown Dose SQ TIDAC MDD 60 per Sliding Scale Lantus Solostar (Insulin Glargine,Hum.rec.anlog) 100 Unit/1 Ml Insuln.pen 30 Units SQ BID [hemp botanicals] Multivitamins (Multivitamin) 1 Each Tablet 1 Tab PO DAILY Calcium (Calcium Carbonate) 500 Mg Tab.chew 500 Mg PO PRN Q4HRS PRN Lansoprazole 30 Mg Capsule.dr 1 Cap PO DAILY Tramadol Hcl 50 Mg Tablet 50 Mg PO PRN BID PRN Bystolic (Nebivolol Hcl) 20 Mg Tablet 20 Mg PO DAILY Amlodipine Besylate 10 Mg Tablet 10 Mg PO DAILY Vitals/I & O Vital Sign - Last 24 Hours 03/17/20 03/17/20 03/17/20 03/17/20 12:10 14:17 14:47 14:58 Temp 98.5 98.5 Pulse 101 Resp 18 B/P (MAP) 113/59 (77) Pulse Ox 94 O2 Delivery Room Air Room Air Room Air Room Air 03/17/20 03/17/20 03/17/20 03/17/20 15:00 16:20 18:00 18:36 Temp 98.5 98.5 Pulse 101 Resp 18 B/P (MAP) 113/59 (77) Pulse Ox 94 93 O2 Delivery Room Air Room Air Room Air Room Air 03/17/20 03/17/20 03/17/20 03/17/20 19:20 19:50 21:15 21:45 Temp 98.8 98.8 Pulse 104 Resp 22 B/P (MAP) 125/75 (92) Pulse Ox 92 O2 Delivery Room Air Room Air Room Air Room Air 03/17/20 03/18/20 03/18/20 03/18/20 23:00 00:17 00:48 03:03 Temp 99.3 99.8 99.3 99.8 Pulse 105 106 Resp 24 22 B/P (MAP) 132/81 (98) 143/82 (102) Pulse Ox 91 93 O2 Delivery Room Air Room Air Room Air Room Air 03/18/20 03/18/20 03/18/20 03/18/20 03:20 04:07 06:23 07:00 Temp 100.4 100.4 Pulse 107 Resp 16 B/P (MAP) 138/88 (105) Pulse Ox 95 O2 Delivery Room Air Room Air Room Air Room Air 03/18/20 03/18/20 03/18/20 08:00 08:47 08:47 Pulse 107 107 B/P (MAP) 138/88 138/88 O2 Delivery Room Air Intake and Output 0 03/17/20 03/17/20 03/18/20 15:00 23:00 07:00 Intake Total 480 ml 50 ml 100 ml Output Total 400 ml 470 ml Balance 480 ml -350 ml -370 ml Justicifation of Admission Dx: Justifications for Admission: Justification of Admission Dx: Yes ALLYSSA LIN MD Mar 18, 2020 11:08
--- NOTE | 2020-03-18 11:46 | CARD ---
MR#: [id number] Date of Study: 03/18/2020 Ordering Physician: ALLYSSA LIN, Referring Physician: ALLYSSA LIN Tech: Kelsea Piña RDCS APPROVED REPORT EXAM: Two-dimensional and M-mode echocardiogram with Doppler and color Doppler. Other Information Quality : Technically Limited Technically limited study due to body habitus. INDICATION Hypertension/HCVD Alcohol Withdraw Echo Enhancing Agent Agent/Amount Used: Optison 1mL 2D DIMENSIONS RVDd3.1 (2.9-3.5cm)Left Atrium(2D)3.5 (1.6-4.0cm) IVSd1.2 (0.7-1.1cm)Aortic Root(2D)4.2 (2.0-3.7cm) LVDd5.4 (3.9-5.9cm)LVOT Diameter2.8 (1.8-2.4cm) PWd1.1 (0.7-1.1cm)LVDs4.0 (2.5-4.0cm) FS (%) 30.0 %SV68.7 ml LVEF(%)55.0 (>50%) Aortic Valve AoV Peak Jefe.145.4cm/sAoV VTI27.2cm AO Peak GR.8.5mmHgLVOT Peak Jefe.132.7cm/s LVOT VTI 24.28cmAO Mean GR.5mmHg PRISCILLA (VMAX)5.09zu8XDW (VTI)5.55cm2 Mitral Valve MV E Lflrguxn701.0cm/sMV DECEL [id number] MV A Yeaabrqc12.8cm/sMV FSM90im E/A Ratio1.5MVA (PHT)4.62cm2 TDI E/Lateral E'10.4E/Medial E'15.0 Pulmonary Vein S1 Wnuykfws38.7cm/sD2 Qnpaexkv72.0cm/s LEFT VENTRICLE The left ventricle is normal size. There is borderline to mild concentric left ventricular hypertroph y. The left ventricular systolic function is normal and the ejection fraction is within normal range. The Ejection Fraction is 55-60%. There is normal LV segmental wall motion. The left ventricular stiles tolic function and filling is normal for age. RIGHT VENTRICLE The right ventricle is normal size. The right ventricular systolic function is normal. ATRIA The left atrium size is normal. The right atrium size is normal. The interatrial septum is intact wit h no evidence for an atrial septal defect or patent foramen ovale as noted on 2-D or Doppler imaging. AORTIC VALVE The aortic valve is calcified but opens well. Doppler and Color Flow revealed no significant aortic r egurgitation. There is no significant aortic valvular stenosis. MITRAL VALVE The mitral valve is normal in structure and function. There is no evidence of mitral valve prolapse. There is no mitral valve stenosis. Doppler and Color Flow revealed no mitral valve regurgitation note d. TRICUSPID VALVE The tricuspid valve is normal in structure and function. Doppler and Color Flow revealed no tricuspid valve regurgitation noted. There is no tricuspid valve stenosis. PULMONIC VALVE The pulmonic valve is not well visualized. Doppler and Color Flow revealed no pulmonic valvular regur gitation. There is no pulmonic valvular stenosis. GREAT VESSELS The aortic root is moderate at 4.2 cm. The ascending aorta is moderate dilated at 4.5 cm. The IVC was not visualized. PERICARDIAL EFFUSION There is no evidence of significant pericardial effusion. Critical Notification Critical Value: No <Conclusion> The left ventricle is normal size. The left ventricular systolic function is normal and the ejection fraction is within normal range. The Ejection Fraction is 55-60%. There is normal LV segmental wall motion. There is borderline to mild concentric left ventricular hypertrophy. Doppler and Color Flow revealed no significant aortic regurgitation. There is no significant aortic valvular stenosis. Doppler and Color Flow revealed no mitral valve regurgitation noted. Doppler and Color Flow revealed no tricuspid valve regurgitation noted. The aortic root is moderately dilated at 4.2 cm. The ascending aorta is moderate dilated at 4.5 cm. Signed by : Liban Cheung MD Electronically Approved : 03/18/2020 11:46:23
--- NOTE | 2020-03-18 12:53 | RAD ---
Examination: US ABDOMEN LTD History: Reason: recurrent pancreatitis, r/o gallstones;PT IS NPO / Spl. Instructions: / History: Comparison/Correlation: 03/17/2020 CT abdomen and pelvis with contrast Findings: Right upper quadrant ultrasound exam was performed. Exam is limited due to patient body habitus. Overlying bowel gas also limits evaluation. Liver length is 23.2 cm. No intrahepatic biliary dilatation. Hepatic echotexture is somewhat coarse a nd echogenic. Normal gallbladder wall thickness is present. Small focus of echogenicity within the gallbladder is q uestioned in the left lateral decubitus position at the gallbladder neck but of indeterminate appeara nce. Right kidney measures 13.6 longitudinal by 6.1 cm x 7.4 cm. No right hydronephrosis. Pancreas is obsc ured by bowel gas. Inferior vena cava is obscured by bowel gas. Inferior vena cava is not well identi fied. Impression: Questionable echogenicity within the gallbladder. Possibility of a calculus is not excluded. Consider further imaging evaluation MRI-MRCP exam for more definitive assessment. Fatty infiltration of the liver. Electronically signed by: Clayton Caputo MD (03/18/2020 12:51 PM) [id number]
[2020-03-18 15:00] VITALS: BP 147/91
[2020-03-18 19:25] VITALS: BP 118/82
[2020-03-18] MEDS: LORazepam 0.5 MG TABLET PO SCH (20:41)
[2020-03-18 23:20] VITALS: BP 135/84
[2020-03-19] MEDS: INSULIN LISPRO 300 UNITS/3 ML VIAL. SQ SCH ×4 (01:10→17:08)
[2020-03-19] MEDS: HYDROmorphone 2 MG/ML VIAL IVP PRN ×6 (01:10→22:31)
[2020-03-19] MEDS: ENOXAPARIN 40 MG/0.4 ML SYRINGE. SQ SCH ×2 (01:12→12:16)
[2020-03-19 03:16] VITALS: BP 135/87
[2020-03-19] MEDS: ACETAMINOPHEN 325 MG TABLET. PO PRN (04:10)
--- NOTE | 2020-03-19 04:11 | NUR ---
Patient c/o pain< IV site leaking. Attempt x 2 to restart IV unsuccessful. Call to Elizabeth RN in ICU to start IV. Patient with increased agitation, sweating, restlessness. Ativan given per [facility] protocol and PO Tylenol given per order. Elizabeth RN in room to start saline lock.
--- NOTE | 2020-03-19 04:28 | NUR ---
Saline lock placed in right AC per Elizabeth SOLIS. Will give pain medication now.
[2020-03-19 07:00] VITALS: BP 133/84
[2020-03-19 08:25] LABS: HEMATOCRIT 40.7 % (39.0-53.0); HEMOGLOBIN 13.2 g/dL (13.0-17.5); RED BLOOD COUNT 4.49 x10^6/uL (4.30-5.70); RED CELL DISTRIBUTION WIDTH 17.5 % (11.5-14.5); WHITE BLOOD COUNT 15.3 x10^3/uL (4.0-11.0)
[2020-03-19 08:46] LABS: ALBUMIN 2.6 g/dL (3.4-5.0); ALBUMIN/GLOBULIN RATIO 0.6 (1.0-1.7); CALCIUM 9.2 mg/dL (8.5-10.1); CREATININE 0.7 mg/dL (0.7-1.3); TOTAL BILIRUBIN 0.9 mg/dL (0.2-1.0); TOTAL PROTEIN 7.2 g/dL (6.4-8.2)
[2020-03-19] MEDS: MULTIVITAMIN with MINERAL TABLET. PO SCH ×2 (09:00→09:35)
[2020-03-19] MEDS: METOPROLOL TART IMMED RELEASE 50 MG TABLET. PO SCH ×2 (09:35→21:09)
[2020-03-19] MEDS: amLODIPine BESYLATE 10 MG TABLET PO SCH (09:35)
[2020-03-19] MEDS: PANTOPRAZOLE IV PUSH 40 MG VIAL. IVP SCH ×2 (09:35→17:04)
[2020-03-19] MEDS: OMEGA-3 FATTY ACIDS/FISH OIL 1,000 MG CAPSULE. PO SCH ×2 (09:35→21:04)
[2020-03-19] MEDS: FOLIC ACID 1 MG TABLET. PO SCH (09:36)
[2020-03-19] MEDS: ATORVASTATIN CALCIUM 40 MG TABLET. PO SCH (09:36)
[2020-03-19] MEDS: THIAMINE 100 MG TABLET. PO SCH (09:36)
[2020-03-19] MEDS: DULoxetine HCL 30 MG CAPSULE.DR PO SCH (09:36)
[2020-03-19 10:54] VITALS: BP 130/83
--- NOTE | 2020-03-19 10:56 | PDOC ---
PROGRESS NOTES Date of Service: DATE: 03/19/20 TIME: 10:56 Chief Complaint Chief Complaint VTE Prophylaxis Ordered VTE Prophylaxis Devices: No VTE Pharmacological Prophylaxi: Yes Assessment/Plan Assessment/Plan IMPRESSION: 1. Inflammatory changes surrounding the pancreas, may relate to pancreatitis. 2. Diffuse hepatic steatosis. 3. Severe alcohol abuse 4. morbid obesity 5. GERD 6. INTRACTABLE ABDOMINAL PAIN 7. HYPERLIPIDEMIA 8. 4 mm noncalcified nodule seen involving the right upper lobe. This may represent an noncalcified granuloma 9. Obesity? obstructive sleep apnea-hypopnea syndrome. 10. 2018 echo ascending aorta is DILATED at 4.2 cm (Correlate with BSA) 11. intractable nausea and vomiting 12. Hypertriglyceridemia plan admit consult GI IV FLUID SUPPORT IV PROTONIX ABD CT. IV PAIN CONTROL, DILAUDID 1 MG Q 3 HRS PRN, D/C IV MORPHINE NPO HOME MEDS DVT PROPHYLAXIS alcohol cessation discussed, educated 28 MIN pt exam, chart review, > 50% of time spent with exam, chart review, pt care coordination Justifications for Admission Justifications for Admission Other Justification History of Present Illness History of Present Illness Identification/Chief Complaint Chief Complaint seen in er with acute pancreatitis patient reports onset of epigastric pain about 3 days ago. Prior to onset of symptoms, he drank 4 beers and ate a large ribeye steak he states. Reports compliance with home medication regimen. Associated nausea and nonbloody/nonbilious emesis. No diarrhea, chest pain, dyspnea. Admitted a couple months ago for CP, found to have pancreatitis secondary to hypertriglyceridemia. lipase = [id number] Mr. White is a 44 old male who presented with acute pancreatitis secondary to hypertriglyceridemia. Consultations were placed to cardiology and GI IN JANUARY 18. Past Medical History Past Medical History Past Medical History Past Medical History Past Medical History: Anxiety, Diabetes-Type I, GERD, Hypertension Past Surgical History: Knee Replacement, Other Additional Past Surgical Histo: BILATERAL KNEE REPLACEMENT, NECK SURGERY, WISDOM TEETH EXTRACTED. Smoking Status: Former Smoker Alcohol Use: Heavy Drug Use: None H/o GERD controlled w/ Prevacid QD. No dysphagia, n/v, diarrhea, constipation, hematochezia, melena, or weight loss. EGD in 1997 w/ reflux. Colonoscopy in 1999 w/ anal fissure. No GB history - no gallstones on US in 2018. Hepatic steatosis on imaging FHX OBESITY Cardiovascular: HTN, Hyperlipidemia Pulmonary: No pertinent hx CENTRAL NERVOUS SYSTEM: Other GI: GERD Heme/Onc: No pertinent hx Hepatobiliary: No pertinent hx Psych: No pertinent hx Musculoskeletal: low back pain, Osteoarthritis Rheumatologic: No pertinent hx Infectious disease: No pertinent hx Renal/: No pertinent hx Endocrine: Diabetes Past Surgical History Past Surgical History: Arthroscopy, Other Family History Family History: Heart Disease Social History Smoke: <1 pack per day ALCOHOL: heavy Drugs: None, Marijuana Vitals Vitals Vital Signs Date Time Temp Pulse Resp B/P (MAP) Pulse Ox O2 Delivery O2 Flow Rate FiO2 03/19/20 10:54 97.6 93 18 130/83 (99) 95 Room Air 97.6 Physical Exam Physical Exam ENT: MMM. Posterior OP clear. Neck: Supple. NT. No JVD. CV: RRR. Peripheral pulses intact. Resp: CTAB. Mild tachypnea. Abd: Soft. Nondistended. Obese. Epigastric tenderness without peritoneal signs. MSK: No peripheral cyanosis. No edema. Neuro: Awake and alert. Skin. Warm. Dry. Psych: Appropriate mood & affect. General: Alert, Oriented X3, Cooperative, mild acute distress Heart: Regular rate, Normal S1, Normal S2 Lungs: Clear Abdomen: Normal bowel sounds, Soft, Other (LUQ pain) Extremities: No clubbing, No cyanosis Skin: No rashes, No breakdown General: Alert, Oriented X3, Cooperative, mild distress, moderate distress HEENT: Atraumatic, EOMI, Mucous membr. moist/pink Lungs: Clear to auscultation, Normal air movement Heart: S1S2, RRR, no thrills, no rubs Breasts: Not examined Abdomen: Normal bowel sounds, Soft, No masses Rectal Exam: not examined PELVIC: Examination not indicated Extremities: No cyanosis Neuro: Normal speech, Sensation intact, Cranial nerves 3-12 NL Psych/Mental Status: Mental status NL, Mood NL General: Alert, Oriented X3, Cooperative, No acute distress, mild distress Heart: Regular rate Lungs: Clear Abdomen: Normal bowel sounds, Soft, No tenderness, No masses Extremities: No clubbing, No cyanosis, No edema Skin: No significant lesion Labs LABS Laboratory Tests Test 03/18/20 11:44 03/18/20 16:48 03/19/20 01:06 03/19/20 06:27 Glucose (Fingerstick) 311 mg/dL (70-99) 310 mg/dL (70-99) 283 mg/dL (70-99) 297 mg/dL (70-99) Test 03/19/20 08:10 White Blood Count 15.3 x10^3/uL (4.0-11.0) Red Blood Count 4.49 x10^6/uL (4.30-5.70) Hemoglobin 13.2 g/dL (13.0-17.5) Hematocrit 40.7 % (39.0-53.0) Mean Corpuscular Volume 91 fL (79-100) Mean Corpuscular Hemoglobin 29 pg (25-35) Mean Corpuscular Hemoglobin Concent 32 g/dL (31-37) Red Cell Distribution Width 17.5 % (11.5-14.5) Platelet Count 226 x10^3/uL (140-400) Sodium Level 134 mmol/L (136-145) Potassium Level 4.0 mmol/L (3.5-5.1) Chloride Level 98 mmol/L (98-107) Carbon Dioxide Level 26 mmol/L (21-32) Anion Gap 10 (6-14) Blood Urea Nitrogen 9 mg/dL (8-26) Creatinine 0.7 mg/dL (0.7-1.3) Estimated GFR (Cockcroft-Gault) 122.0 BUN/Creatinine Ratio 13 (6-20) Glucose Level 307 mg/dL (70-99) Calcium Level 9.2 mg/dL (8.5-10.1) Total Bilirubin 0.9 mg/dL (0.2-1.0) Aspartate Amino Transf (AST/SGOT) 19 U/L (15-37) Alanine Aminotransferase (ALT/SGPT) 38 U/L (16-63) Alkaline Phosphatase 112 U/L (46-116) Total Protein 7.2 g/dL (6.4-8.2) Albumin 2.6 g/dL (3.4-5.0) Albumin/Globulin Ratio 0.6 (1.0-1.7) Assessment and Plan Assessmemt and Plan Problems Medical Problems: (1) Hypertriglyceridemia Status: Acute (2) Intractable nausea and vomiting Status: Acute (3) Pancreatitis Status: Acute Comment Review of Relevant I have reviewed the following items franklyn (where applicable) has been applied. Labs Laboratory Tests Test 03/17/20 14:30 03/18/20 07:35 03/18/20 11:44 03/18/20 16:48 Troponin I Quantitative < 0.017 ng/mL (0.000-0.055) White Blood Count 19.1 x10^3/uL (4.0-11.0) Red Blood Count 4.63 x10^6/uL (4.30-5.70) Hemoglobin 13.6 g/dL (13.0-17.5) Hematocrit 41.8 % (39.0-53.0) Mean Corpuscular Volume 90 fL (79-100) Mean Corpuscular Hemoglobin 30 pg (25-35) Mean Corpuscular Hemoglobin Concent 33 g/dL (31-37) Red Cell Distribution Width 17.5 % (11.5-14.5) Platelet Count 246 x10^3/uL (140-400) Neutrophils (%) (Auto) 86 % (31-73) Lymphocytes (%) (Auto) 8 % (24-48) Monocytes (%) (Auto) 5 % (0-9) Eosinophils (%) (Auto) 1 % (0-3) Basophils (%) (Auto) 1 % (0-3) Neutrophils # (Auto) 16.5 x10^3/uL (1.8-7.7) Lymphocytes # (Auto) 1.5 x10^3/uL (1.0-4.8) Monocytes # (Auto) 0.9 x10^3/uL (0.0-1.1) Eosinophils # (Auto) 0.1 x10^3/uL (0.0-0.7) Basophils # (Auto) 0.1 x10^3/uL (0.0-0.2) Sodium Level 131 mmol/L (136-145) Potassium Level 4.4 mmol/L (3.5-5.1) Chloride Level 97 mmol/L (98-107) Carbon Dioxide Level 23 mmol/L (21-32) Anion Gap 11 (6-14) Blood Urea Nitrogen 10 mg/dL (8-26) Creatinine 0.7 mg/dL (0.7-1.3) Estimated GFR (Cockcroft-Gault) 122.0 BUN/Creatinine Ratio 14 (6-20) Glucose Level 255 mg/dL (70-99) Calcium Level 8.7 mg/dL (8.5-10.1) Total Bilirubin 1.2 mg/dL (0.2-1.0) Aspartate Amino Transf (AST/SGOT) 30 U/L (15-37) Alanine Aminotransferase (ALT/SGPT) 46 U/L (16-63) Alkaline Phosphatase 101 U/L (46-116) Total Protein 6.9 g/dL (6.4-8.2) Albumin 2.7 g/dL (3.4-5.0) Albumin/Globulin Ratio 0.6 (1.0-1.7) Lipase 392 U/L (73-393) Glucose (Fingerstick) 311 mg/dL (70-99) 310 mg/dL (70-99) Test 03/19/20 01:06 03/19/20 06:27 03/19/20 08:10 Glucose (Fingerstick) 283 mg/dL (70-99) 297 mg/dL (70-99) White Blood Count 15.3 x10^3/uL (4.0-11.0) Red Blood Count 4.49 x10^6/uL (4.30-5.70) Hemoglobin 13.2 g/dL (13.0-17.5) Hematocrit 40.7 % (39.0-53.0) Mean Corpuscular Volume 91 fL (79-100) Mean Corpuscular Hemoglobin 29 pg (25-35) Mean Corpuscular Hemoglobin Concent 32 g/dL (31-37) Red Cell Distribution Width 17.5 % (11.5-14.5) Platelet Count 226 x10^3/uL (140-400) Sodium Level 134 mmol/L (136-145) Potassium Level 4.0 mmol/L (3.5-5.1) Chloride Level 98 mmol/L (98-107) Carbon Dioxide Level 26 mmol/L (21-32) Anion Gap 10 (6-14) Blood Urea Nitrogen 9 mg/dL (8-26) Creatinine 0.7 mg/dL (0.7-1.3) Estimated GFR (Cockcroft-Gault) 122.0 BUN/Creatinine Ratio 13 (6-20) Glucose Level 307 mg/dL (70-99) Calcium Level 9.2 mg/dL (8.5-10.1) Total Bilirubin 0.9 mg/dL (0.2-1.0) Aspartate Amino Transf (AST/SGOT) 19 U/L (15-37) Alanine Aminotransferase (ALT/SGPT) 38 U/L (16-63) Alkaline Phosphatase 112 U/L (46-116) Total Protein 7.2 g/dL (6.4-8.2) Albumin 2.6 g/dL (3.4-5.0) Albumin/Globulin Ratio 0.6 (1.0-1.7) Laboratory Tests Test 03/18/20 11:44 03/18/20 16:48 03/19/20 01:06 03/19/20 06:27 Glucose (Fingerstick) 311 mg/dL (70-99) 310 mg/dL (70-99) 283 mg/dL (70-99) 297 mg/dL (70-99) Test 03/19/20 08:10 White Blood Count 15.3 x10^3/uL (4.0-11.0) Red Blood Count 4.49 x10^6/uL (4.30-5.70) Hemoglobin 13.2 g/dL (13.0-17.5) Hematocrit 40.7 % (39.0-53.0) Mean Corpuscular Volume 91 fL (79-100) Mean Corpuscular Hemoglobin 29 pg (25-35) Mean Corpuscular Hemoglobin Concent 32 g/dL (31-37) Red Cell Distribution Width 17.5 % (11.5-14.5) Platelet Count 226 x10^3/uL (140-400) Sodium Level 134 mmol/L (136-145) Potassium Level 4.0 mmol/L (3.5-5.1) Chloride Level 98 mmol/L (98-107) Carbon Dioxide Level 26 mmol/L (21-32) Anion Gap 10 (6-14) Blood Urea Nitrogen 9 mg/dL (8-26) Creatinine 0.7 mg/dL (0.7-1.3) Estimated GFR (Cockcroft-Gault) 122.0 BUN/Creatinine Ratio 13 (-20) Glucose Level 307 mg/dL (70-99) Calcium Level 9.2 mg/dL (8.5-10.1) Total Bilirubin 0.9 mg/dL (0.2-1.0) Aspartate Amino Transf (AST/SGOT) 19 U/L (15-37) Alanine Aminotransferase (ALT/SGPT) 38 U/L (16-63) Alkaline Phosphatase 112 U/L (46-116) Total Protein 7.2 g/dL (6.4-8.2) Albumin 2.6 g/dL (3.4-5.0) Albumin/Globulin Ratio 0.6 (1.0-1.7) Microbiology 03/17/20 Blood Culture - Preliminary, Resulted NO GROWTH AFTER 1 DAY Medications Current Medications Sodium Chloride 1,000 ml @ 1,000 mls/hr 1X ONCE IV Last administered on 03/16/20at 21:33; Start 03/16/20 at 21:30; Stop 03/16/20 at 22:29; Status DC Ondansetron HCl (Zofran) 4 mg 1X ONCE IVP Last administered on 03/16/20at 21:34; Start 03/16/20 at 21:30; Stop 03/16/20 at 21:31; Status DC Morphine Sulfate (Morphine Sulfate) 4 mg 1X ONCE IV Last administered on 03/16/20at 21:34; Start 03/16/20 at 21:30; Stop 03/16/20 at 21:31; Status DC Morphine Sulfate (Morphine Sulfate) 4 mg 1X ONCE IV Last administered on 03/16/20at 22:59; Start 03/16/20 at 23:00; Stop 03/16/20 at 23:01; Status DC Ondansetron HCl (Zofran) 4 mg PRN Q6HRS PRN IV NAUSEA/VOMITING 1ST CHOICE Last administered on 03/17/20at 09:33; Start 03/16/20 at 23:45; Stop 03/17/20 at 23:44; Status DC Morphine Sulfate (Morphine Sulfate) 4 mg PRN Q2HR PRN IV SEVERE PAIN 7-10 Last administered on 03/17/20at 12:10; Start 03/16/20 at 23:45; Stop 03/17/20 at 12:58; Status DC Insulin Human Lispro (HumaLOG) 20 units ONCE ONCE SQ Last administered on 03/17/20at 00:32; Start 03/17/20 at 00:30; Stop 03/17/20 at 00:31; Status DC Zolpidem Tartrate (Ambien) 5 mg PRN QHS PRN PO INSOMNIA; Start 03/17/20 at 02:00 Zolpidem Tartrate (Ambien) 5 mg 1X ONCE PO Last administered on 03/17/20at 01:59; Start 03/17/20 at 02:00; Stop 03/17/20 at 02:01; Status DC Pantoprazole Sodium (PROTONIX VIAL for IV PUSH) 40 mg BIDAC IVP Last administered on 03/19/20at 09:35; Start 03/17/20 at 12:00 Amlodipine Besylate (Norvasc) 10 mg DAILY PO Last administered on 03/19/20at 09:35; Start 03/17/20 at 13:00 Atorvastatin Calcium (Lipitor) 40 mg DAILY PO Last administered on 03/19/20at 09:36; Start 03/17/20 at 13:00 Gabapentin (Neurontin) 600 mg PRN BID PRN PO PAIN; Start 03/17/20 at 12:15 Lorazepam (Ativan) 0.5 mg HS PO Last administered on 03/18/20at 20:41; Start 03/17/20 at 21:00 Calcium Carbonate/ Glycine (Tums) 500 mg PRN Q4HRS PRN PO INDIGESTION; Start 03/17/20 at 12:30 Duloxetine HCl (Cymbalta) 60 mg DAILY PO Last administered on 03/19/20at 09:36; Start 03/17/20 at 13:00 Non-Formulary Medication (Lansoprazole ) 1 cap DAILY PO ; Start 03/18/20 at 09:00; Status UNV Multivitamins (Thera M Plus) 1 tab DAILY PO Last administered on 03/19/20at 09:35; Start 03/18/20 at 09:00 Metoprolol Tartrate (Lopressor) 50 mg BID PO Last administered on 03/19/20at 0 9:35; Start 03/17/20 at 21:00 Fish Oil (Fish Oil) 2,000 mg BID PO Last administered on 03/19/20at 09:35; Start 03/17/20 at 21:00 Sodium Chloride (Normal Saline Flush) 3 ml QSHIFT PRN IV AFTER MEDS AND BLOOD DRAWS; Start 03/17/20 at 12:45 Multivitamins 10 ml/Thiamine HCl 100 mg/Folic Acid 1 mg/Sodium Chloride 1,011.2 ml @ 125 mls/ hr 1X ONCE IV Last administered on 03/17/20at 14:17; Start 03/17/20 at 14:00; Stop 03/17/20 at 22:05; Status DC Ondansetron HCl (Zofran) 4 mg PRN Q4HRS PRN IV NAUSEA/VOMITING; Start 03/17/20 at 12:45 Acetaminophen (Tylenol) 650 mg PRN Q4HRS PRN PO TEMP OVER 100.4F OR MILD PAIN Last administered on 03/19/20at 04:10; Start 03/17/20 at 12:45 Clonidine HCl (Catapres) 0.1 mg PRN Q6HRS PRN PO SBP>160 OR DBP>90; Start 03/01 10/18 at 12:45 Sodium Monofluorophosphate (Fleet Adult) 133 ml PRN DAILY PRN MO CONSTIPATION; Start 03/17/20 at 12:45 Docusate Sodium (Colace) 100 mg PRN BID PRN PO HARD STOOLS; Start 03/17/20 at 12:45 Albuterol Sulfate (Ventolin Neb Soln) 2.5 mg PRN Q4HRS PRN NEB SHORTNESS OF BREATH; Start 03/17/20 at 12:45 Lorazepam (Ativan) 0.5 mg PRN Q4HRS PRN PO ANXIETY / AGITATION; Start 03/17/20 at 12:45 Lorazepam (Ativan Inj) 2 mg PRN Q4HRS PRN IV ANXIETY / AGITATION Last administered on 03/18/20at 00:17; Start 03/17/20 at 12:45 Enoxaparin Sodium (Lovenox 40mg Syringe) 40 mg Q12H SQ Last administered on 03/19/20at 01:12; Start 03/17/20 at 13:00 Iohexol (Omnipaque 300 Mg/ml) 75 ml 1X ONCE IV Last administered on 03/17/20at 13:19; Start 03/17/20 at 13:00; Stop 03/17/20 at 13:14; Status DC Hydromorphone HCl (Dilaudid) 1 mg PRN Q3HRS PRN IVP MODERATE TO SEVERE PAIN Last administered on 03/19/20at 09:34; Start 03/17/20 at 13:00 Info (CONTRAST GIVEN -- Rx MONITORING) 1 each PRN DAILY PRN MC SEE COMMENTS; Start 03/17/20 at 13:30; Stop 03/19/20 at 13:29 Multivitamins (Thera M Plus) 1 tab DAILY PO ; Start 03/18/20 at 09:00 Folic Acid (Folic Acid) 1 mg DAILY PO Last administered on 03/19/20at 09:36; Start 03/18/20 at 09:00 Thiamine Mononitrate (Vitamin B-1) 100 mg DAILY PO Last administered on 03/19/20at 09:36; Start 03/18/20 at 09:00 Thiamine HCl 100 mg/Dextrose 51 ml @ 100 mls/hr DAILY IV ; Start 03/22/20 at 09:00; Stop 03/26/20 at 09:31; Status UNV Lorazepam (Ativan) 4 mg PRN Q1HR PRN PO For CIWA 8-14 Last administered on 03/19/20at 09:45; Start 03/17/20 at 13:30 Lorazepam (Ativan) 8 mg PRN Q1HR PRN PO For CIWA 15 or greater; Start 03/17/20 at 13:30 Lorazepam (Ativan Inj) 2 mg PRN Q1HR PRN IV For CIWA 8-14; Start 03/17/20 at 13:30 Lorazepam (Ativan Inj) 4 mg PRN Q1HR PRN IV For CIWA 15 or greater Last administered on 03/18/20at 14:28; Start 03/17/20 at 13:30 Haloperidol Lactate (Haldol Inj) 5 mg PRN Q4HRS PRN IVP Hallucinatns,Confusn,Delirium; Start 03/17/20 at 13:30 Diphenhydramine HCl (Benadryl) 25 mg PRN Q15MIN PRN IVP EPS symptoms 2'Haldol admin; Start 03/17/20 at 13:30 Clonidine HCl (Catapres) 0.1 mg PRN Q1HR PRN PO SBP > 180 or DBP > 100, MRX3; Start 03/17/20 at 13:30 Lorazepam (Ativan Inj) 2 mg PRN Q15MIN PRN IV SEE COMMENTS; Start 03/17/20 at 13:30; Status UNV Lorazepam (Ativan Inj) 4 mg PRN Q15MIN PRN IV SEE COMMENTS; Start 03/17/20 at 13:30; Status UNV Insulin Human Lispro (HumaLOG) 0-5 UNITS TIDWMEALS SQ Last administered on 03/17/20at 18:05; Start 03/17/20 at 17:30; Stop 03/18/20 at 03:57; Status DC Dextrose (Dextrose 50%-Water Syringe) 12.5 gm PRN Q15MIN PRN IV SEE COMMENTS; Start 03/17/20 at 17:30 Insulin Human Lispro (HumaLOG) 0-5 UNITS Q6HRS SQ Last administered on 03/19/20at 06:40; Start 03/18/20 at 06:00 Perflutren Protein Type A Microsphe (Optison) 0.66 mg STK-MED ONCE IV ; Start 03/18/20 at 10:47; Stop 03/18/20 at 10:47; Status DC Perflutren Protein Type A Microsphe (Optison) 0.66 mg 1X ONCE IV Last administered on 03/18/20at 15:28; Start 03/18/20 at 15:30; Stop 03/18/20 at 15:40; Status DC Active Scripts Active Atorvastatin Calcium 40 Mg Tablet 1 Tab PO DAILY Lovaza ([place]-3 Acid Ethyl Esters) 1 Gm Capsule 2 Cap PO BID 90 Days Reported Ativan (Lorazepam) 0.5 Mg Tablet 0.5 Mg PO HS Duloxetine Hcl 60 Mg Capsule.dr 1 Cap PO DAILY Gabapentin 300 Mg Capsule 2 Cap PO PRN BID PRN Humalog (Insulin Lispro) 100 Unit/1 Ml Vial Unknown Dose SQ TIDAC MDD 60 per Sliding Scale Lantus Solostar (Insulin Glargine,Hum.rec.anlog) 100 Unit/1 Ml Insuln.pen 30 Units SQ BID [hemp botanicals] Multivitamins (Multivitamin) 1 Each Tablet 1 Tab PO DAILY Calcium (Calcium Carbonate) 500 Mg Tab.chew 500 Mg PO PRN Q4HRS PRN Lansoprazole 30 Mg Capsule.dr 1 Cap PO DAILY Tramadol Hcl 50 Mg Tablet 50 Mg PO PRN BID PRN Bystolic (Nebivolol Hcl) 20 Mg Tablet 20 Mg PO DAILY Amlodipine Besylate 10 Mg Tablet 10 Mg PO DAILY Vitals/I & O Vital Sign - Last 24 Hours 03/18/20 03/18/20 03/18/20 03/18/20 11:00 15:00 19:25 20:15 Temp 98.9 100.8 98.5 98.9 100.8 98.5 Pulse 103 107 109 Resp 14 14 20 B/P (MAP) 148/95 (112) 147/91 (109) 118/82 (94) Pulse Ox 92 96 94 O2 Delivery Room Air Room Air Room Air Room Air 03/18/20 03/18/20 03/18/20 03/18/20 20:42 21:46 22:16 23:20 Temp 98.7 98.7 Pulse 103 103 Resp 20 22 B/P (MAP) 129/75 135/84 (101) Pulse Ox 94 91 O2 Delivery Room Air Room Air Room Air 03/19/20 03/19/20 03/19/20 03/19/20 01:10 01:40 03:16 04:34 Temp 98.8 98.8 Pulse 97 Resp 18 20 18 B/P (MAP) 135/87 (103) Pulse Ox 91 93 93 O2 Delivery Room Air Room Air Room Air Room Air 03/19/20 03/19/20 03/19/20 03/19/20 05:04 07:00 07:40 09:34 Temp 98.4 98.4 Pulse 107 Resp 18 B/P (MAP) 133/84 (100) Pulse Ox 91 O2 Delivery Room Air Room Air Room Air Room Air 03/19/20 03/19/20 03/19/20 09:35 09:35 10:54 Temp 97.6 97.6 Pulse 107 107 93 Resp 18 B/P (MAP) 133/84 133/84 130/83 (99) Pulse Ox 95 O2 Delivery Room Air Intake and Output 03/18/20 03/18/20 03/19/20 15:00 23:00 07:00 Intake Total 0 ml 850 ml 120 ml Balance 0 ml 850 ml 120 ml Justicifation of Admission Dx: Justifications for Admission: Justification of Admission Dx: Yes ALLYSSA LIN MD Mar 19, 2020 10:56
--- NOTE | 2020-03-19 13:57 | PDOC ---
Date of Service: DATE: 03/19/20 TIME: 13:52 Subjective: Subjective: He reports pain controlled on meds. He wants to start clears. Admits to flatus Objective: Vital Signs: Vital Signs Date Time Temp Pulse Resp B/P (MAP) Pulse Ox O2 Delivery O2 Flow Rate FiO2 03/19/20 13:49 Room Air 03/19/20 10:54 97.6 93 18 130/83 (99) 95 97.6 Labs: Laboratory Tests Test 03/18/20 16:48 03/19/20 01:06 03/19/20 06:27 03/19/20 08:10 Glucose (Fingerstick) 310 mg/dL (70-99) 283 mg/dL (70-99) 297 mg/dL (70-99) White Blood Count 15.3 x10^3/uL (4.0-11.0) Red Blood Count 4.49 x10^6/uL (4.30-5.70) Hemoglobin 13.2 g/dL (13.0-17.5) Hematocrit 40.7 % (39.0-53.0) Mean Corpuscular Volume 91 fL (79-100) Mean Corpuscular Hemoglobin 29 pg (25-35) Mean Corpuscular Hemoglobin Concent 32 g/dL (31-37) Red Cell Distribution Width 17.5 % (11.5-14.5) Platelet Count 226 x10^3/uL (140-400) Sodium Level 134 mmol/L (136-145) Potassium Level 4.0 mmol/L (3.5-5.1) Chloride Level 98 mmol/L (98-107) Carbon Dioxide Level 26 mmol/L (21-32) Anion Gap 10 (6-14) Blood Urea Nitrogen 9 mg/dL (8-26) Creatinine 0.7 mg/dL (0.7-1.3) Estimated GFR (Cockcroft-Gault) 122.0 BUN/Creatinine Ratio 13 (6-20) Glucose Level 307 mg/dL (70-99) Calcium Level 9.2 mg/dL (8.5-10.1) Total Bilirubin 0.9 mg/dL (0.2-1.0) Aspartate Amino Transf (AST/SGOT) 19 U/L (15-37) Alanine Aminotransferase (ALT/SGPT) 38 U/L (16-63) Alkaline Phosphatase 112 U/L (46-116) Total Protein 7.2 g/dL (6.4-8.2) Albumin 2.6 g/dL (3.4-5.0) Albumin/Globulin Ratio 0.6 (1.0-1.7) Test 03/19/20 11:13 Glucose (Fingerstick) 282 mg/dL (70-99) Physical Exam: Physical Exam: PE: GEN: uncomfortable - seems worse today LUNGS: diminished anteriorly HEART: mildly tachycardic ABD: quiet - few if any BS, epigastric to LUQ tenderness to light palpation, soft NEURO/PSYCH: A & O 3 Assessment & Plan: Assessment : A/P: Recurrent pancreatitis - hypertriglyceridemia, h/o alcohol use - no gallstones on US in 2018 - CT as above w/ inflammation, fluid, 5cm hypodensity - cannot exclude early necrosis Low grade fever, mild tachycardia Leukocytosis (better), elevated LFTs (resolved) Plan: -- would advance diet today to cld and monitor sx Recheck labs tomorrow, consider interval CT later. Had cardiology eval last time re: triglycerides - has been on statin and omega 3 - treated w/ IV insulin last admission. Justicifation of Admission Dx: Justifications for Admission: Justification of Admission Dx: Yes CHAD SORTO MD Mar 19, 2020 13:57
[2020-03-19 14:43] VITALS: BP 135/93
--- NOTE | 2020-03-19 18:01 | NUR ---
BS per pt's machine was 279.
[2020-03-19 19:02] VITALS: BP 131/86
[2020-03-19] MEDS: LORazepam 0.5 MG TABLET PO SCH (21:09)
[2020-03-19 23:09] VITALS: BP 125/91
[2020-03-20] VITALS (7 sets, daily range): BP systolic 137–150; BP diastolic 83–93
--- NOTE | 2020-03-20 00:40 | NUR ---
MD notified for elevated blood sugar of 358, received one time order for 7 units of Humalog.
[2020-03-20] MEDS: ENOXAPARIN 40 MG/0.4 ML SYRINGE. SQ SCH ×3 (00:52→20:30)
[2020-03-20] MEDS ORDERED: INSULIN LISPRO 300 UNITS/3 ML VIAL. SQ ONE (01:00)
[2020-03-20] MEDS: HYDROmorphone 2 MG/ML VIAL IVP PRN ×5 (01:58→20:30)
[2020-03-20] MEDS: GABAPENTIN 300 MG CAPSULE. PO PRN ×2 (04:05→20:37)
[2020-03-20] MEDS: ACETAMINOPHEN 325 MG TABLET. PO PRN ×2 (04:05→20:37)
[2020-03-20] MEDS: INSULIN LISPRO 300 UNITS/3 ML VIAL. SQ SCH ×2 (05:46)
[2020-03-20 07:52] LABS: ALBUMIN 2.8 g/dL (3.4-5.0); ALBUMIN/GLOBULIN RATIO 0.6 (1.0-1.7); CALCIUM 9.2 mg/dL (8.5-10.1); GFR 80.8; POTASSIUM 3.5 mmol/L (3.5-5.1); TOTAL BILIRUBIN 0.9 mg/dL (0.2-1.0); TOTAL PROTEIN 7.8 g/dL (6.4-8.2)
[2020-03-20 08:09] LABS: HEMATOCRIT 38.2 % (39.0-53.0); HEMOGLOBIN 12.6 g/dL (13.0-17.5); WHITE BLOOD COUNT 11.8 x10^3/uL (4.0-11.0)
[2020-03-20] MEDS: DULoxetine HCL 30 MG CAPSULE.DR PO SCH (08:16)
[2020-03-20] MEDS: amLODIPine BESYLATE 10 MG TABLET PO SCH (08:17)
[2020-03-20] MEDS: OMEGA-3 FATTY ACIDS/FISH OIL 1,000 MG CAPSULE. PO SCH ×2 (08:17→20:31)
[2020-03-20] MEDS: ATORVASTATIN CALCIUM 40 MG TABLET. PO SCH (08:17)
[2020-03-20] MEDS: THIAMINE 100 MG TABLET. PO SCH (08:17)
[2020-03-20] MEDS: METOPROLOL TART IMMED RELEASE 50 MG TABLET. PO SCH ×2 (08:17→20:31)
[2020-03-20] MEDS: MULTIVITAMIN with MINERAL TABLET. PO SCH ×2 (08:17→08:18)
[2020-03-20] MEDS: FOLIC ACID 1 MG TABLET. PO SCH (08:18)
[2020-03-20] MEDS: PANTOPRAZOLE IV PUSH 40 MG VIAL. IVP SCH ×2 (08:18→17:49)
--- NOTE | 2020-03-20 09:58 | PDOC ---
PROGRESS NOTES Date of Service: DATE: 03/20/20 TIME: 09:58 Chief Complaint Chief Complaint VTE Prophylaxis Ordered VTE Prophylaxis Devices: No VTE Pharmacological Prophylaxi: Yes Assessment/Plan Assessment/Plan IMPRESSION: 1. Inflammatory changes surrounding the pancreas, may relate to pancreatitis. 2. Diffuse hepatic steatosis. 3. Severe alcohol abuse 4. morbid obesity 5. GERD 6. INTRACTABLE ABDOMINAL PAIN 7. HYPERLIPIDEMIA 8. 4 mm noncalcified nodule seen involving the right upper lobe. This may represent an noncalcified granuloma 9. Obesity? obstructive sleep apnea-hypopnea syndrome. 10. 2018 echo ascending aorta is DILATED at 4.2 cm (Correlate with BSA) 11. intractable nausea and vomiting 12. Hypertriglyceridemia plan admit consult GI IV FLUID SUPPORT IV PROTONIX ABD CT. IV PAIN CONTROL, DILAUDID 1 MG Q 3 HRS PRN, D/C IV MORPHINE NPO HOME MEDS DVT PROPHYLAXIS alcohol cessation discussed, educated START INSULIN DRIP PROTOCOL 28 MIN pt exam, chart review, > 50% of time spent with exam, chart review, pt care coordination Justifications for Admission Justifications for Admission Other Justification History of Present Illness History of Present Illness Identification/Chief Complaint Chief Complaint seen in er with acute pancreatitis patient reports onset of epigastric pain about 3 days ago. Prior to onset of symptoms, he drank 4 beers and ate a large ribeye steak he states. Reports compliance with home medication regimen. Associated nausea and nonbloody/nonbilious emesis. No diarrhea, chest pain, dyspnea. Admitted a couple months ago for CP, found to have pancreatitis secondary to hypertriglyceridemia. lipase = [phone] Mr. White is a 44 old male who presented with acute pancreatitis secondary to hypertriglyceridemia. Consultations were placed to cardiology and GI IN JANUARY 18. Past Medical History Past Medical History Past Medical History Past Medical History Past Medical History: Anxiety, Diabetes-Type I, GERD, Hypertension Past Surgical History: Knee Replacement, Other Additional Past Surgical Histo: BILATERAL KNEE REPLACEMENT, NECK SURGERY, WISDOM TEETH EXTRACTED. Smoking Status: Former Smoker Alcohol Use: Heavy Drug Use: None H/o GERD controlled w/ Prevacid QD. No dysphagia, n/v, diarrhea, constipation, hematochezia, melena, or weight loss. EGD in 1997 w/ reflux. Colonoscopy in 2000 w/ anal fissure. No GB history - no gallstones on US in 2018. Hepatic steatosis on imaging FHX OBESITY Cardiovascular: HTN, Hyperlipidemia Pulmonary: No pertinent hx CENTRAL NERVOUS SYSTEM: Other GI: GERD Heme/Onc: No pertinent hx Hepatobiliary: No pertinent hx Psych: No pertinent hx Musculoskeletal: low back pain, Osteoarthritis Rheumatologic: No pertinent hx Infectious disease: No pertinent hx Renal/: No pertinent hx Endocrine: Diabetes Past Surgical History Past Surgical History: Arthroscopy, Other Family History Family History: Heart Disease Social History Smoke: <1 pack per day ALCOHOL: heavy Drugs: None, Marijuana Vitals Vitals Vital Signs Date Time Temp Pulse Resp B/P (MAP) Pulse Ox O2 Delivery O2 Flow Rate FiO2 03/20/20 08:17 83 142/93 03/20/20 07:13 Room Air 03/20/20 07:09 98.6 18 94 98.6 Physical Exam Physical Exam ENT: MMM. Posterior OP clear. Neck: Supple. NT. No JVD. CV: RRR. Peripheral pulses intact. Resp: CTAB. Mild tachypnea. Abd: Soft. Nondistended. Obese. Epigastric tenderness without peritoneal signs. MSK: No peripheral cyanosis. No edema. Neuro: Awake and alert. Skin. Warm. Dry. Psych: Appropriate mood & affect. General: Alert, Oriented X3, Cooperative, mild acute distress Heart: Regular rate, Normal S1, Normal S2 Lungs: Clear Abdomen: Normal bowel sounds, Soft, Other (LUQ pain) Extremities: No clubbing, No cyanosis Skin: No rashes, No breakdown General: Alert, Oriented X3, Cooperative, mild distress, moderate distress HEENT: Atraumatic, EOMI, Mucous membr. moist/pink Lungs: Clear to auscultation, Normal air movement Heart: S1S2, RRR, no thrills, no rubs Breasts: Not examined Abdomen: Normal bowel sounds, Soft, No masses Rectal Exam: not examined PELVIC: Examination not indicated Extremities: No cyanosis Neuro: Normal speech, Sensation intact, Cranial nerves 3-12 NL Psych/Mental Status: Mental status NL, Mood NL General: Alert, Oriented X3, Cooperative, No acute distress, mild distress Heart: Regular rate, Normal S1, Normal S2 Lungs: Clear Abdomen: Normal bowel sounds, Soft, No tenderness, No masses Extremities: No clubbing, No cyanosis, No edema Skin: No significant lesion Labs LABS Laboratory Tests Test 03/19/20 11:13 03/19/20 18:00 03/19/20 23:54 03/20/20 02:02 Glucose (Fingerstick) 282 mg/dL (70-99) 300 mg/dL (70-99) 358 mg/dL (70-99) 296 mg/dL (70-99) Test 03/20/20 05:37 03/20/20 07:15 Glucose (Fingerstick) 292 mg/dL (70-99) White Blood Count 11.8 x10^3/uL (4.0-11.0) Hemoglobin 12.6 g/dL (13.0-17.5) Hematocrit 38.2 % (39.0-53.0) Platelet Count 257 x10^3/uL (140-400) Sodium Level 134 mmol/L (136-145) Potassium Level 3.5 mmol/L (3.5-5.1) Chloride Level 95 mmol/L (98-107) Carbon Dioxide Level 32 mmol/L (21-32) Anion Gap 7 (6-14) Blood Urea Nitrogen 8 mg/dL (8-26) Creatinine 1.0 mg/dL (0.7-1.3) Estimated GFR (Cockcroft-Gault) 80.8 BUN/Creatinine Ratio 8 (6-20) Glucose Level 278 mg/dL (70-99) Calcium Level 9.2 mg/dL (8.5-10.1) Total Bilirubin 0.9 mg/dL (0.2-1.0) Aspartate Amino Transf (AST/SGOT) 39 U/L (15-37) Alanine Aminotransferase (ALT/SGPT) 51 U/L (16-63) Alkaline Phosphatase 153 U/L (46-116) Total Protein 7.8 g/dL (6.4-8.2) Albumin 2.8 g/dL (3.4-5.0) Albumin/Globulin Ratio 0.6 (1.0-1.7) Lipase 489 U/L (73-393) Assessment and Plan Assessmemt and Plan Problems Medical Problems: (1) Hypertriglyceridemia Status: Acute (2) Intractable nausea and vomiting Status: Acute (3) Pancreatitis Status: Acute Comment Review of Relevant I have reviewed the following items franklyn (where applicable) has been applied. Labs Laboratory Tests Test 03/18/20 11:44 03/18/20 16:48 03/19/20 01:06 03/19/20 06:27 Glucose (Fingerstick) 311 mg/dL (70-99) 310 mg/dL (70-99) 283 mg/dL (70-99) 297 mg/dL (70-99) Test 03/19/20 08:10 03/19/20 11:13 03/19/20 18:00 03/19/20 23:54 White Blood Count 15.3 x10^3/uL (4.0-11.0) Red Blood Count 4.49 x10^6/uL (4.30-5.70) Hemoglobin 13.2 g/dL (13.0-17.5) Hematocrit 40.7 % (39.0-53.0) Mean Corpuscular Volume 91 fL (79-100) Mean Corpuscular Hemoglobin 29 pg (25-35) Mean Corpuscular Hemoglobin Concent 32 g/dL (31-37) Red Cell Distribution Width 17.5 % (11.5-14.5) Platelet Count 226 x10^3/uL (140-400) Sodium Level 134 mmol/L (136-145) Potassium Level 4.0 mmol/L (3.5-5.1) Chloride Level 98 mmol/L (98-107) Carbon Dioxide Level 26 mmol/L (21-32) Anion Gap 10 (6-14) Blood Urea Nitrogen 9 mg/dL (8-26) Creatinine 0.7 mg/dL (0.7-1.3) Estimated GFR (Cockcroft-Gault) 122.0 BUN/Creatinine Ratio 13 (6-20) Glucose Level 307 mg/dL (70-99) Calcium Level 9.2 mg/dL (8.5-10.1) Total Bilirubin 0.9 mg/dL (0.2-1.0) Aspartate Amino Transf (AST/SGOT) 19 U/L (15-37) Alanine Aminotransferase (ALT/SGPT) 38 U/L (16-63) Alkaline Phosphatase 112 U/L (46-116) Total Protein 7.2 g/dL (6.4-8.2) Albumin 2.6 g/dL (3.4-5.0) Albumin/Globulin Ratio 0.6 (1.0-1.7) Glucose (Fingerstick) 282 mg/dL (70-99) 300 mg/dL (70-99) 358 mg/dL (70-99) Test 03/20/20 02:02 03/20/20 05:37 03/20/20 07:15 Glucose (Fingerstick) 296 mg/dL (70-99) 292 mg/dL (70-99) White Blood Count 11.8 x10^3/uL (4.0-11.0) Hemoglobin 12.6 g/dL (13.0-17.5) Hematocrit 38.2 % (39.0-53.0) Platelet Count 257 x10^3/uL (140-400) Sodium Level 134 mmol/L (136-145) Potassium Level 3.5 mmol/L (3.5-5.1) Chloride Level 95 mmol/L (98-107) Carbon Dioxide Level 32 mmol/L (21-32) Anion Gap 7 (6-14) Blood Urea Nitrogen 8 mg/dL (8-26) Creatinine 1.0 mg/dL (0.7-1.3) Estimated GFR (Cockcroft-Gault) 80.8 BUN/Creatinine Ratio 8 (6-20) Glucose Level 278 mg/dL (70-99) Calcium Level 9.2 mg/dL (8.5-10.1) Total Bilirubin 0.9 mg/dL (0.2-1.0) Aspartate Amino Transf (AST/SGOT) 39 U/L (15-37) Alanine Aminotransferase (ALT/SGPT) 51 U/L (16-63) Alkaline Phosphatase 153 U/L (46-116) Total Protein 7.8 g/dL (6.4-8.2) Albumin 2.8 g/dL (3.4-5.0) Albumin/Globulin Ratio 0.6 (1.0-1.7) Lipase 489 U/L (73-393) Laboratory Tests Test 03/19/20 11:13 03/19/20 18:00 03/19/20 23:54 03/20/20 02:02 Glucose (Fingerstick) 282 mg/dL (70-99) 300 mg/dL (70-99) 358 mg/dL (70-99) 296 mg/dL (70-99) Test 03/20/20 05:37 03/20/20 07:15 Glucose (Fingerstick) 292 mg/dL (70-99) White Blood Count 11.8 x10^3/uL (4.0-11.0) Hemoglobin 12.6 g/dL (13.0-17.5) Hematocrit 38.2 % (39.0-53.0) Platelet Count 257 x10^3/uL (140-400) Sodium Level 134 mmol/L (136-145) Potassium Level 3.5 mmol/L (3.5-5.1) Chloride Level 95 mmol/L (98-107) Carbon Dioxide Level 32 mmol/L (21-32) Anion Gap 7 (6-14) Blood Urea Nitrogen 8 mg/dL (8-26) Creatinine 1.0 mg/dL (0.7-1.3) Estimated GFR (Cockcroft-Gault) 80.8 BUN/Creatinine Ratio 8 (6-20) Glucose Level 278 mg/dL (70-99) Calcium Level 9.2 mg/dL (8.5-10.1) Total Bilirubin 0.9 mg/dL (0.2-1.0) Aspartate Amino Transf (AST/SGOT) 39 U/L (15-37) Alanine Aminotransferase (ALT/SGPT) 51 U/L (16-63) Alkaline Phosphatase 153 U/L (46-116) Total Protein 7.8 g/dL (6.4-8.2) Albumin 2.8 g/dL (3.4-5.0) Albumin/Globulin Ratio 0.6 (1.0-1.7) Lipase 489 U/L (73-393) Microbiology 03/17/20 Blood Culture - Preliminary, Resulted NO GROWTH AFTER 2 DAYS Medications Current Medications Sodium Chloride 1,000 ml @ 1,000 mls/hr 1X ONCE IV Last administered on 03/16/20at 21:33; Start 03/16/20 at 21:30; Stop 03/16/20 at 22:29; Status DC Ondansetron HCl (Zofran) 4 mg 1X ONCE IVP Last administered on 03/16/20at 21:34; Start 03/16/20 at 21:30; Stop 03/16/20 at 21:31; Status DC Morphine Sulfate (Morphine Sulfate) 4 mg 1X ONCE IV Last administered on 03/16/20at 21:34; Start 03/16/20 at 21:30; Stop 03/16/20 at 21:31; Status DC Morphine Sulfate (Morphine Sulfate) 4 mg 1X ONCE IV Last administered on 03/16/20at 22:59; Start 03/16/20 at 23:00; Stop 03/16/20 at 23:01; Status DC Ondansetron HCl (Zofran) 4 mg PRN Q6HRS PRN IV NAUSEA/VOMITING 1ST CHOICE Last administered on 03/17/20at 09:33; Start 03/16/20 at 23:45; Stop 03/17/20 at 23:44; Status DC Morphine Sulfate (Morphine Sulfate) 4 mg PRN Q2HR PRN IV SEVERE PAIN 7-10 Last administered on 03/17/20at 12:10; Start 03/16/20 at 23:45; Stop 03/17/20 at 12:58; Status DC Insulin Human Lispro (HumaLOG) 20 units ONCE ONCE SQ Last administered on 03/17/20at 00:32; Start 03/17/20 at 00:30; Stop 03/17/20 at 00:31; Status DC Zolpidem Tartrate (Ambien) 5 mg PRN QHS PRN PO INSOMNIA; Start 03/17/20 at 02:00 Zolpidem Tartrate (Ambien) 5 mg 1X ONCE PO Last administered on 03/17/20at 01 :59; Start 03/17/20 at 02:00; Stop 03/17/20 at 02:01; Status DC Pantoprazole Sodium (PROTONIX VIAL for IV PUSH) 40 mg BIDAC IVP Last administered on 03/20/20at 08:18; Start 03/17/20 at 12:00 Amlodipine Besylate (Norvasc) 10 mg DAILY PO Last administered on 03/20/20at 08:17; Start 03/17/20 at 13:00 Atorvastatin Calcium (Lipitor) 40 mg DAILY PO Last administered on 03/20/20 08:17; Start 03/17/20 at 13:00 Gabapentin (Neurontin) 600 mg PRN BID PRN PO PAIN Last administered on 03/20/20 04:05; Start 03/17/20 at 12:15 Lorazepam (Ativan) 0.5 mg HS PO Last administered on 03/19/20at 21:09; Start 03/17/20 at 21:00 Calcium Carbonate/ Glycine (Tums) 500 mg PRN Q4HRS PRN PO INDIGESTION; Start 03/17/20 at 12:30 Duloxetine HCl (Cymbalta) 60 mg DAILY PO Last administered on 03/20/20at 08:16; Start 03/17/20 at 13:00 Non-Formulary Medication (Lansoprazole ) 1 cap DAILY PO ; Start 03/18/20 at 09:00; Status UNV Multivitamins (Thera M Plus) 1 tab DAILY PO Last administered on 03/20/20at 08:17; Start 03/18/20 at 09:00 Metoprolol Tartrate (Lopressor) 50 mg BID PO Last administered on 03/20/20at 08:17; Start 03/17/20 at 21:00 Fish Oil (Fish Oil) 2,000 mg BID PO Last administered on 03/20/20at 08:17; Start 03/17/20 at 21:00 Sodium Chloride (Normal Saline Flush) 3 ml QSHIFT PRN IV AFTER MEDS AND BLOOD DRAWS; Start 03/17/20 at 12:45 Multivitamins 10 ml/Thiamine HCl 100 mg/Folic Acid 1 mg/Sodium Chloride 1,011.2 ml @ 125 mls/ hr 1X ONCE IV Last administered on 03/17/20at 14:17; Start 03/17/20 at 14:00; Stop 03/17/20 at 22:05; Status DC Ondansetron HCl (Zofran) 4 mg PRN Q4HRS PRN IV NAUSEA/VOMITING; Start 03/17/20 at 12:45 Acetaminophen (Tylenol) 650 mg PRN Q4HRS PRN PO TEMP OVER 100.4F OR MILD PAIN Last administered on 03/20/20at 04:05; Start 03/17/20 at 12:45 Clonidine HCl (Catapres) 0.1 mg PRN Q6HRS PRN PO SBP>160 OR DBP>90; Start 03/17/20 at 12:45 Sodium Monofluorophosphate (Fleet Adult) 133 ml PRN DAILY PRN IN CONSTIPATION; Start 03/17/20 at 12:45 Docusate Sodium (Colace) 100 mg PRN BID PRN PO HARD STOOLS; Start 03/17/20 at 12:45 Albuterol Sulfate (Ventolin Neb Soln) 2.5 mg PRN Q4HRS PRN NEB SHORTNESS OF BREATH; Start 03/17/20 at 12:45 Lorazepam (Ativan) 0.5 mg PRN Q4HRS PRN PO ANXIETY / AGITATION; Start 03/17/20 at 12:45 Lorazepam (Ativan Inj) 2 mg PRN Q4HRS PRN IV ANXIETY / AGITATION Last administered on 03/20/20at 02:14; Start 03/17/20 at 12:45 Enoxaparin Sodium (Lovenox 40mg Syringe) 40 mg Q12H SQ Last administered on 03/20/20at 00:52; Start 03/17/20 at 13:00 Iohexol (Omnipaque 300 Mg/ml) 75 ml 1X ONCE IV Last administered on 03/17/20at 13:19; Start 03/17/20 at 13:00; Stop 03/17/20 at 13:14; Status DC Hydromorphone HCl (Dilaudid) 1 mg PRN Q3HRS PRN IVP MODERATE TO SEVERE PAIN Last administered on 03/20/20at 05:35; Start 03/17/20 at 13:00 Info (CONTRAST GIVEN -- Rx MONITORING) 1 each PRN DAILY PRN MC SEE COMMENTS; Start 03/17/20 at 13:30; Stop 03/19/20 at 13:29; Status DC Multivitamins (Thera M Plus) 1 tab DAILY PO ; Start 03/18/20 at 09:00 Folic Acid (Folic Acid) 1 mg DAILY PO Last administered on 03/20/20at 08:18; Start 03/18/20 at 09:00 Thiamine Mononitrate (Vitamin B-1) 100 mg DAILY PO Last administered on 03/20/20at 08:17; Start 03/18/20 at 09:00 Thiamine HCl 100 mg/Dextrose 51 ml @ 100 mls/hr DAILY IV ; Start 03/22/20 at 09:00; Stop 03/26/20 at 09:31; Status UNV Lorazepam (Ativan) 4 mg PRN Q1HR PRN PO For CIWA 8-14 Last administered on 03/20/20at 08:24; Start 03/17/20 at 13:30 Lorazepam (Ativan) 8 mg PRN Q1HR PRN PO For CIWA 15 or greater; Start 03/17/20 at 13:30 Lorazepam (Ativan Inj) 2 mg PRN Q1HR PRN IV For CIWA 8-14; Start 03/17/20 at 13:30 Lorazepam (Ativan Inj) 4 mg PRN Q1HR PRN IV For CIWA 15 or greater Last administered on 03/18/20at 14:28; Start 03/17/20 at 13:30 Haloperidol Lactate (Haldol Inj) 5 mg PRN Q4HRS PRN IVP Hallucinatns,Confusn,Delirium; Start 03/17/20 at 13:30 Diphenhydramine HCl (Benadryl) 25 mg PRN Q15MIN PRN IVP EPS symptoms 2'Haldol admin; Start 03/17/20 at 13:30 Clonidine HCl (Catapres) 0.1 mg PRN Q1HR PRN PO SBP > 180 or DBP > 100, MRX3; Start 03/17/20 at 13:30 Lorazepam (Ativan Inj) 2 mg PRN Q15MIN PRN IV SEE COMMENTS; Start 03/17/20 at 13:30; Status UNV Lorazepam (Ativan Inj) 4 mg PRN Q15MIN PRN IV SEE COMMENTS; Start 03/17/20 at 13:30; Status UNV Insulin Human Lispro (HumaLOG) 0-5 UNITS TIDWMEALS SQ Last administered on 03/17/20at 18:05; Start 03/17/20 at 17:30; Stop 03/18/20 at 03:57; Status DC Dextrose (Dextrose 50%-Water Syringe) 12.5 gm PRN Q15MIN PRN IV SEE COMMENTS; Start 03/17/20 at 17:30 Insulin Human Lispro (HumaLOG) 0-5 UNITS Q6HRS SQ Last administered on 03/20/20at 05:46; Start 03/18/20 at 06:00 Perflutren Protein Type A Microsphe (Optison) 0.66 mg STK-MED ONCE IV ; Start 03/18/20 at 10:47; Stop 03/18/20 at 10:47; Status DC Perflutren Protein Type A Microsphe (Optison) 0.66 mg 1X ONCE IV Last administered on 03/18/20at 15:28; Start 03/18/20 at 15:30; Stop 03/18/20 at 15:40; Status DC Insulin Human Lispro (HumaLOG) 7 units 1X ONCE SQ Last administered on 03/20/20at 00:50; Start 03/20/20 at 01:00; Stop 03/20/20 at 01:01; Status DC Active Scripts Active Atorvastatin Calcium 40 Mg Tablet 1 Tab PO DAILY Lovaza ([place]-3 Acid Ethyl Esters) 1 Gm Capsule 2 Cap PO BID 90 Days Reported Ativan (Lorazepam) 0.5 Mg Tablet 0.5 Mg PO HS Duloxetine Hcl 60 Mg Capsule.dr 1 Cap PO DAILY Gabapentin 300 Mg Capsule 2 Cap PO PRN BID PRN Humalog (Insulin Lispro) 100 Unit/1 Ml Vial Unknown Dose SQ TIDAC MDD 60 per Sliding Scale Lantus Solostar (Insulin Glargine,Hum.rec.anlog) 100 Unit/1 Ml Insuln.pen 30 Units SQ BID [hemp botanicals] Multivitamins (Multivitamin) 1 Each Tablet 1 Tab PO DAILY Calcium (Calcium Carbonate) 500 Mg Tab.chew 500 Mg PO PRN Q4HRS PRN Lansoprazole 30 Mg Capsule.dr 1 Cap PO DAILY Tramadol Hcl 50 Mg Tablet 50 Mg PO PRN BID PRN Bystolic (Nebivolol Hcl) 20 Mg Tablet 20 Mg PO DAILY Amlodipine Besylate 10 Mg Tablet 10 Mg PO DAILY Vitals/I & O Vital Sign - Last 24 Hours 03/19/20 03/19/20 03/19/20 03/19/20 10:54 13:49 14:43 18:05 Temp 97.6 97.6 Pulse 93 101 Resp 18 18 B/P (MAP) 130/83 (99) 135/93 (107) Pulse Ox 95 91 O2 Delivery Room Air Room Air Room Air Room Air 03/19/20 03/19/20 03/19/20 03/19/20 19:02 19:31 21:09 22:31 Temp 97.4 97.4 Pulse 108 96 Resp 32 22 B/P (MAP) 131/86 (101) 132/85 Pulse Ox 90 94 O2 Delivery Room Air Room Air Room Air 03/19/20 03/19/20 03/20/20 03/20/20 23:09 23:15 01:58 03:00 Temp 98.1 98.2 98.1 98.2 Pulse 93 98 Resp 29 20 22 26 B/P (MAP) 125/91 (102) 142/88 (106) Pulse Ox 93 91 O2 Delivery Room Air Room Air Room Air Room Air 03/20/20 03/20/20 03/20/20 03/20/20 05:35 06:05 07:09 07:13 Temp 98.6 98.6 Pulse 83 Resp 22 22 18 B/P (MAP) 142/93 (109) Pulse Ox 94 O2 Delivery Room Air Room Air Room Air Room Air 03/20/20 03/20/20 08:17 08:17 Pulse 83 83 B/P (MAP) 142/93 142/93 Intake and Output 03/19/20 03/19/20 03/20/20 15:00 23:00 07:00 Intake Total 50 ml 1180 ml Balance 50 ml 1180 ml Justicifation of Admission Dx: Justifications for Admission: Justification of Admission Dx: Yes ALLYSSA LIN MD Mar 20, 2020 09:58
[2020-03-20] MEDS ORDERED: INSULIN,REGULAR 100 UNIT DRIP 100 ML IV ONE (10:30)
--- NOTE | 2020-03-20 10:52 | NUR ---
Insulin gtt ordered, unable to begin gtt due to glucose stabilizer not uploaded on any computer on the unit. IT contacted as well as WILL Garcia nursing supervisor [employer]. Marylin stated she would return call with plan to begin gtt. Dr. Borjas notified of pt having to transfer to room 502 due to glucose stablizer needed for gtt.
--- NOTE | 2020-03-20 13:20 | NUR ---
Patient arrived on the unit per w/c, vitals obtained and recorded, significant other at the bedside, fingerstick blood glucose obtained (352), will start insulin gtt as ordered and per protocol.
--- NOTE | 2020-03-20 16:07 | PDOC ---
Date of Service: DATE: 03/20/20 TIME: 16:05 Subjective: Subjective: Still with pain Objective: Vital Signs: Vital Signs Date Time Temp Pulse Resp B/P (MAP) Pulse Ox O2 Delivery O2 Flow Rate FiO2 03/20/20 15:00 97.8 94 20 148/86 (106) 93 Room Air 97.8 Labs: Laboratory Tests Test 03/19/20 18:00 03/19/20 23:54 03/20/20 02:02 03/20/20 05:37 Glucose (Fingerstick) 300 mg/dL (70-99) 358 mg/dL (70-99) 296 mg/dL (70-99) 292 mg/dL (70-99) Test 03/20/20 07:15 03/20/20 13:25 03/20/20 14:53 03/20/20 15:58 White Blood Count 11.8 x10^3/uL (4.0-11.0) Hemoglobin 12.6 g/dL (13.0-17.5) Hematocrit 38.2 % (39.0-53.0) Platelet Count 257 x10^3/uL (140-400) Sodium Level 134 mmol/L (136-145) Potassium Level 3.5 mmol/L (3.5-5.1) Chloride Level 95 mmol/L (98-107) Carbon Dioxide Level 32 mmol/L (21-32) Anion Gap 7 (6-14) Blood Urea Nitrogen 8 mg/dL (8-26) Creatinine 1.0 mg/dL (0.7-1.3) Estimated GFR (Cockcroft-Gault) 80.8 BUN/Creatinine Ratio 8 (6-20) Glucose Level 278 mg/dL (70-99) Calcium Level 9.2 mg/dL (8.5-10.1) Total Bilirubin 0.9 mg/dL (0.2-1.0) Aspartate Amino Transf (AST/SGOT) 39 U/L (15-37) Alanine Aminotransferase (ALT/SGPT) 51 U/L (16-63) Alkaline Phosphatase 153 U/L (46-116) Total Protein 7.8 g/dL (6.4-8.2) Albumin 2.8 g/dL (3.4-5.0) Albumin/Globulin Ratio 0.6 (1.0-1.7) Triglycerides Level 171 mg/dL (0-150) Lipase 489 U/L (73-393) Glucose (Fingerstick) 352 mg/dL (70-99) 324 mg/dL (70-99) 221 mg/dL (70-99) Physical Exam: Physical Exam: GEN: uncomfortable - seems worse today LUNGS: diminished anteriorly HEART: mildly tachycardic ABD: quiet - few if any BS, epigastric to LUQ tenderness to light palpation, soft NEURO/PSYCH: A & O 3 Assessment & Plan: Assessment : A/P: Recurrent pancreatitis - hypertriglyceridemia, h/o alcohol use - no gallstones on US in 2018 - CT as above w/ inflammation, fluid, 5cm hypodensity - cannot exclude early necrosis. Lipase worse Low grade fever, mild tachycardia Leukocytosis (better), elevated LFTs (Alk phos worse) Plan: -- would cont cld and monitor sx Recheck labs tomorrow, consider interval CT later. Consider surgical eval given ? gallstone Had cardiology eval last time re: triglycerides - has been on statin and omega 3 - treated w/ IV insulin last admission. Justicifation of Admission Dx: Justifications for Admission: Justification of Admission Dx: Yes CHAD SORTO MD Mar 20, 2020 16:07
[2020-03-20] MEDS: LORazepam 0.5 MG TABLET PO SCH (20:31)
[2020-03-20] MEDS: ZOLPIDEM 5 MG TABLET. PO PRN (20:37)
[2020-03-21] MEDS ORDERED: DEXTROSE 50% 25 GM / 50ML DISP.SYRIN. IV PRN
[2020-03-21] MEDS: HYDROmorphone 2 MG/ML VIAL IVP PRN ×6 (00:10→20:33)
[2020-03-21] MEDS: INSULIN LISPRO 300 UNITS/3 ML VIAL. SQ SCH ×5 (00:12→20:40)
[2020-03-21 02:50] VITALS: BP 140/91
--- NOTE | 2020-03-21 02:55 | NUR ---
ASSUMED CARE FROM DAY SHIFT PT STANDING UP FACING WINDOW STATES HE IN PAIN , IV DILAUDID 1 MG GIVEN WITH NEURONTIN AND PO ATIVAN .PT RESTING QUIETLY AND APPEARS TO BE SLEEPING EYES CLOSED AND RESP EASY COLOR PINK. 0000 PT AWAKE C/O PAIN AND ANXIETY CIWA 9 IV ATIVAN 2MG GIVEN ALONG WITH DILAUDID 1 MG. PT IMMEDIATELY IN HIGH RADFORD POSITION IN BED WITH EYES CLOSED AND HEAD DROPPING TO CHIN CALLED PATIENT NAME PT OPENED EYES, THEN TURN TO ANNABEL AND APPEARED TO BE SLEEPING. 0215 VITAL SIGNS TAKEN BY NURSE AID JESSY. PT INFORMED NURSING ASSISTANCE THAT [facility] WAS HOLDING BACK HIS PAIN MEDICATION. [facility] WENT INTO ROOM AND EXPLAINED WITH THE MEDIATION WAS THAT HE WAS RECEIVING AND THE TIME IN WHICH HE WAS RECEIVING WITH MEDICATION, AND THAT I WAS DOING ALL THAT I COULD TO TO MAKE HIM COMFORTABLE, BY MAKING SURE HE RECEIVED HIS PAIN AND ANTI- ANXIETY MEDICATION SCHEDULED.
[2020-03-21] MEDS: ACETAMINOPHEN 325 MG TABLET. PO PRN (06:34)
[2020-03-21] MEDS: GABAPENTIN 300 MG CAPSULE. PO PRN (06:34)
[2020-03-21 07:00] VITALS: BP 132/93
[2020-03-21] MEDS: MULTIVITAMIN with MINERAL TABLET. PO SCH ×2 (09:00→10:03)
[2020-03-21 09:05] LABS: RED BLOOD COUNT 4.3 x10^6/uL (4.30-5.70); RED CELL DISTRIBUTION WIDTH 17.4 % (11.5-14.5); WHITE BLOOD COUNT 16.7 x10^3/uL (4.0-11.0)
--- NOTE | 2020-03-21 09:40 | NUR ---
SW following. Discussed with RN, pt from home with family, room air, advanced to full liquid diet. Pt cleared by Med Assist met with pt for self pay status, pt reported his coverage was dropped due to lack of working hours, however he called his insurance to have it reinstated and it should retro back to 03/01/2020. RN advised no SW needs, anticipates possible discharge home today. SW will continue to follow.
--- NOTE | 2020-03-21 09:41 | PDOC ---
Date of Service: DATE: 03/21/20 TIME: 09:38 Subjective: Subjective: Feeling just a little better overall. Ongoing abdominal pain. No flatus/stool. Taking some clear liquids but hesitant to advance or take too much for fear of worsening pain and recurrent vomiting. [place] someone mention something about his gallbladder and has questions regarding this. Objective: Vital Signs: Vital Signs Date Time Temp Pulse Resp B/P (MAP) Pulse Ox O2 Delivery O2 Flow Rate FiO2 03/21/20 07:18 95 Room Air 03/21/20 06:28 22 03/21/20 02:50 98.5 89 140/91 (107) 98.5 Labs: Laboratory Tests Test 03/20/20 13:25 03/20/20 14:53 03/20/20 15:58 03/20/20 17:14 Glucose (Fingerstick) 352 mg/dL 324 mg/dL 221 mg/dL 174 mg/dL Test 03/20/20 20:45 03/21/20 00:08 03/21/20 07:15 03/21/20 07:20 Glucose (Fingerstick) 255 mg/dL 269 mg/dL 268 mg/dL White Blood Count 16.7 x10^3/uL Red Blood Count 4.30 x10^6/uL Hemoglobin 13.0 g/dL Hematocrit 39.0 % Mean Corpuscular Volume 91 fL Mean Corpuscular Hemoglobin 30 pg Mean Corpuscular Hemoglobin Concent 33 g/dL Red Cell Distribution Width 17.4 % Platelet Count 230 x10^3/uL Imaging: RUQ US 03/18 Impression: Questionable echogenicity within the gallbladder. Possibility of a calculus is not excluded. Consider further imaging evaluation MRI-MRCP exam for more definitive assessment. Fatty infiltration of the liver. Echo 03/08 <Conclusion> The left ventricle is normal size. The left ventricular systolic function is normal and the ejection fraction is within normal range. The Ejection Fraction is 55-60%. There is normal LV segmental wall motion. There is borderline to mild concentric left ventricular hypertrophy. Doppler and Color Flow revealed no significant aortic regurgitation. There is no significant aortic valvular stenosis. Doppler and Color Flow revealed no mitral valve regurgitation noted. Doppler and Color Flow revealed no tricuspid valve regurgitation noted. The aortic root is moderately dilated at 4.2 cm. The ascending aorta is moderate dilated at 4.5 cm. PE: GEN: NAD LUNGS: CTAB HEART: RRR ABD: still quiet, tender to placement of stethoscope and light palpation - more diffuse compared to last week NEURO/PSYCH: A & O 3 A/P: Recurrent pancreatitis - hypertriglyceridemia, h/o alcohol use Leukocytosis -- D/w Dr. Meza - ongoing pain and some nausea, not interested in advancing diet. Will recheck CT to r/o necrosis and pseudocyst/phlegmon. Recurrent pancreatitis likely related to alcohol and hypertriglyceridemia; however, cholelithiasis not excluded on US. Could consider surgery evaluation at some point. Note orders to advance to full liquids - might be better to keep to clears instead. After I saw, some of today's labs resulted - note worsening leukocytosis. CMP pending, await this. Continue IV PPI for now. Justicifation of Admission Dx: Justifications for Admission: Justification of Admission Dx: Yes MARILYN VASQUEZ Mar 21, 2020 09:41
[2020-03-21] MEDS: ENOXAPARIN 40 MG/0.4 ML SYRINGE. SQ SCH ×2 (10:01→20:28)
[2020-03-21] MEDS: HYDROcodone/APAP 7.5/325MG 1 TAB TABLET PO PRN ×3 (10:02→22:04)
[2020-03-21] MEDS: DULoxetine HCL 30 MG CAPSULE.DR PO SCH (10:02)
[2020-03-21] MEDS: FOLIC ACID 1 MG TABLET. PO SCH (10:02)
[2020-03-21] MEDS: THIAMINE 100 MG TABLET. PO SCH (10:02)
[2020-03-21] MEDS: OMEGA-3 FATTY ACIDS/FISH OIL 1,000 MG CAPSULE. PO SCH ×2 (10:02→20:26)
[2020-03-21] MEDS: ATORVASTATIN CALCIUM 40 MG TABLET. PO SCH (10:03)
[2020-03-21] MEDS: amLODIPine BESYLATE 10 MG TABLET PO SCH (10:03)
[2020-03-21] MEDS: PANTOPRAZOLE IV PUSH 40 MG VIAL. IVP SCH ×2 (10:04→15:55)
[2020-03-21] MEDS: METOPROLOL TART IMMED RELEASE 50 MG TABLET. PO SCH ×2 (10:04→20:27)
[2020-03-21 10:26] LABS: ALBUMIN 2.9 g/dL (3.4-5.0); ALBUMIN/GLOBULIN RATIO 0.7 (1.0-1.7); CALCIUM 8.7 mg/dL (8.5-10.1); CREATININE 0.7 mg/dL (0.7-1.3); POTASSIUM 3.8 mmol/L (3.5-5.1); TOTAL BILIRUBIN 0.7 mg/dL (0.2-1.0); TOTAL PROTEIN 6.9 g/dL (6.4-8.2)
[2020-03-21] MEDS ORDERED: CONTRAST GIVEN. MC PRN (10:30)
[2020-03-21] MEDS ORDERED: IOHEXOL 300 MG/ML 100ML VIAL. IV ONE (10:30)
[2020-03-21 11:00] VITALS: BP 122/89
--- NOTE | 2020-03-21 12:37 | PDOC ---
PROGRESS NOTES Date of Service: DATE: 03/21/20 TIME: 12:36 Chief Complaint Chief Complaint VTE Prophylaxis Ordered VTE Prophylaxis Devices: No VTE Pharmacological Prophylaxi: Yes Assessment/Plan Assessment/Plan IMPRESSION: 1. Inflammatory changes surrounding the pancreas, may relate to pancreatitis. 2. Diffuse hepatic steatosis. 3. Severe alcohol abuse 4. morbid obesity 5. GERD 6. INTRACTABLE ABDOMINAL PAIN 7. HYPERLIPIDEMIA 8. 4 mm noncalcified nodule seen involving the right upper lobe. This may represent an noncalcified granuloma 9. Obesity? obstructive sleep apnea-hypopnea syndrome. 10. 2018 echo ascending aorta is DILATED at 4.2 cm (Correlate with BSA) 11. intractable nausea and vomiting 12. Hypertriglyceridemia plan admit consult GI IV FLUID SUPPORT IV PROTONIX ABD CT. IV PAIN CONTROL, DILAUDID 1 MG Q 3 HRS PRN, D/C IV MORPHINE NPO HOME MEDS DVT PROPHYLAXIS alcohol cessation discussed, educated START INSULIN DRIP PROTOCOL 28 MIN pt exam, chart review, > 50% of time spent with exam, chart review, pt care coordination Justifications for Admission Justifications for Admission Other Justification History of Present Illness History of Present Illness he tried to eat oatmeal today, 03/21, then severe pain, doubled over, vomited, will give IV pain meds and restart IV fluid seen in er with acute pancreatitis patient reports onset of epigastric pain about 3 days ago. Prior to onset of symptoms, he drank 4 beers and ate a large ribeye steak he states. Reports compliance with home medication regimen. Associated nausea and nonbloody/nonbilious emesis. No diarrhea, chest pain, dy spnea. Admitted a couple months ago for CP, found to have pancreatitis secondary to hypertriglyceridemia. lipase = [id number] Mr. White is a 44 old male who presented with acute pancreatitis secondary to hypertriglyceridemia. Consultations were placed to cardiology and GI IN JANUARY 18. Past Medical History Past Medical History Past Medical History Past Medical History Past Medical History: Anxiety, Diabetes-Type I, GERD, Hypertension Past Surgical History: Knee Replacement, Other Additional Past Surgical Histo: BILATERAL KNEE REPLACEMENT, NECK SURGERY, WISDOM TEETH EXTRACTED. Smoking Status: Former Smoker Alcohol Use: Heavy Drug Use: None H/o GERD controlled w/ Prevacid QD. No dysphagia, n/v, diarrhea, constipation, hematochezia, melena, or weight loss. EGD in 1997 w/ reflux. Colonoscopy in 1999 w/ anal fissure. No GB history - no gallstones on US in 2018. Hepatic steatosis on imaging FHX OBESITY Cardiovascular: HTN, Hyperlipidemia Pulmonary: No pertinent hx CENTRAL NERVOUS SYSTEM: Other GI: GERD Heme/Onc: No pertinent hx Hepatobiliary: No pertinent hx Psych: No pertinent hx Musculoskeletal: low back pain, Osteoarthritis Rheumatologic: No pertinent hx Infectious disease: No pertinent hx Renal/: No pertinent hx Endocrine: Diabetes Past Surgical History Past Surgical History: Arthroscopy, Other Family History Family History: Heart Disease Social History Smoke: <1 pack per day ALCOHOL: heavy Drugs: None, Marijuana Vitals Vitals Vital Signs Date Time Temp Pulse Resp B/P (MAP) Pulse Ox O2 Delivery O2 Flow Rate FiO2 03/21/20 11:00 98.7 89 18 122/89 (100) 91 Room Air 98.7 Physical Exam Physical Exam ENT: MMM. Posterior OP clear. Neck: Supple. NT. No JVD. CV: RRR. Peripheral pulses intact. Resp: CTAB. Mild tachypnea. Abd: Soft. Nondistended. Obese. Epigastric tenderness without peritoneal signs. MSK: No peripheral cyanosis. No edema. Neuro: Awake and alert. Skin. Warm. Dry. Psych: Appropriate mood & affect. General: Alert, Oriented X3, Cooperative, mild acute distress Heart: Regular rate, Normal S1, Normal S2 Lungs: Clear Abdomen: Normal bowel sounds, Soft, Other (LUQ pain) Extremities: No clubbing, No cyanosis Skin: No rashes, No breakdown General: Alert, Oriented X3, Cooperative, mild distress, moderate distress HEENT: Atraumatic, EOMI, Mucous membr. moist/pink Lungs: Clear to auscultation, Normal air movement Heart: S1S2, RRR, no thrills, no rubs Breasts: Not examined Abdomen: Normal bowel sounds, Soft, No masses Rectal Exam: not examined PELVIC: Examination not indicated Extremities: No cyanosis Neuro: Normal speech, Sensation intact, Cranial nerves 3-12 NL Psych/Mental Status: Mental status NL, Mood NL General: Alert, Oriented X3, Cooperative, No acute distress, mild distress Heart: Regular rate, Normal S1, Normal S2 Lungs: Clear Abdomen: Normal bowel sounds, Soft, No tenderness, No masses Extremities: No clubbing, No cyanosis, No edema Skin: No significant lesion Labs LABS Laboratory Tests Test 03/20/20 13:25 03/20/20 14:53 03/20/20 15:58 03/20/20 17:14 Glucose (Fingerstick) 352 mg/dL (70-99) 324 mg/dL (70-99) 221 mg/dL (70-99) 174 mg/dL (70-99) Test 03/20/20 20:45 03/21/20 00:08 03/21/20 07:15 03/21/20 07:20 Glucose (Fingerstick) 255 mg/dL (70-99) 269 mg/dL (70-99) 268 mg/dL (70-99) White Blood Count 16.7 x10^3/uL (4.0-11.0) Red Blood Count 4.30 x10^6/uL (4.30-5.70) Hemoglobin 13.0 g/dL (13.0-17.5) Hematocrit 39.0 % (39.0-53.0) Mean Corpuscular Volume 91 fL (79-100) Mean Corpuscular Hemoglobin 30 pg (25-35) Mean Corpuscular Hemoglobin Concent 33 g/dL (31-37) Red Cell Distribution Width 17.4 % (11.5-14.5) Platelet Count 230 x10^3/uL (140-400) Sodium Level 134 mmol/L (136-145) Potassium Level 3.8 mmol/L (3.5-5.1) Chloride Level 94 mmol/L (98-107) Carbon Dioxide Level 27 mmol/L (21-32) Anion Gap 13 (6-14) Blood Urea Nitrogen 8 mg/dL (8-26) Creatinine 0.7 mg/dL (0.7-1.3) Estimated GFR (Cockcroft-Gault) 122.0 BUN/Creatinine Ratio 11 (6-20) Glucose Level 255 mg/dL (70-99) Calcium Level 8.7 mg/dL (8.5-10.1) Total Bilirubin 0.7 mg/dL (0.2-1.0) Aspartate Amino Transf (AST/SGOT) 35 U/L (15-37) Alanine Aminotransferase (ALT/SGPT) 52 U/L (16-63) Alkaline Phosphatase 148 U/L (46-116) Total Protein 6.9 g/dL (6.4-8.2) Albumin 2.9 g/dL (3.4-5.0) Albumin/Globulin Ratio 0.7 (1.0-1.7) Test 03/21/20 11:32 Glucose (Fingerstick) 306 mg/dL (70-99) Assessment and Plan Assessmemt and Plan Problems Medical Problems: (1) Hypertriglyceridemia Status: Acute (2) Intractable nausea and vomiting Status: Acute (3) Pancreatitis Status: Acute Comment Review of Relevant I have reviewed the following items franklyn (where applicable) has been applied. Labs Laboratory Tests Test 03/19/20 18:00 03/19/20 23:54 03/20/20 02:02 03/20/20 05:37 Glucose (Fingerstick) 300 mg/dL (70-99) 358 mg/dL (70-99) 296 mg/dL (70-99) 292 mg/dL (70-99) Test 03/20/20 07:15 03/20/20 13:25 03/20/20 14:53 03/20/20 15:58 White Blood Count 11.8 x10^3/uL (4.0-11.0) Hemoglobin 12.6 g/dL (13.0-17.5) Hematocrit 38.2 % (39.0-53.0) Platelet Count 257 x10^3/uL (140-400) Sodium Level 134 mmol/L (136-145) Potassium Level 3.5 mmol/L (3.5-5.1) Chloride Level 95 mmol/L (98-107) Carbon Dioxide Level 32 mmol/L (21-32) Anion Gap 7 (6-14) Blood Urea Nitrogen 8 mg/dL (8-26) Creatinine 1.0 mg/dL (0.7-1.3) Estimated GFR (Cockcroft-Gault) 80.8 BUN/Creatinine Ratio 8 (6-20) Glucose Level 278 mg/dL (70-99) Calcium Level 9.2 mg/dL (8.5-10.1) Total Bilirubin 0.9 mg/dL (0.2-1.0) Aspartate Amino Transf (AST/SGOT) 39 U/L (15-37) Alanine Aminotransferase (ALT/SGPT) 51 U/L (16-63) Alkaline Phosphatase 153 U/L (46-116) Total Protein 7.8 g/dL (6.4-8.2) Albumin 2.8 g/dL (3.4-5.0) Albumin/Globulin Ratio 0.6 (1.0-1.7) Triglycerides Level 171 mg/dL (0-150) Lipase 489 U/L (73-393) Glucose (Fingerstick) 352 mg/dL (70-99) 324 mg/dL (70-99) 221 mg/dL (70-99) Test 03/20/20 17:14 03/20/20 20:45 03/21/20 00:08 03/21/20 07:15 Glucose (Fingerstick) 174 mg/dL (70-99) 255 mg/dL (70-99) 269 mg/dL (70-99) 268 mg/dL (70-99) Test 03/21/20 07:20 03/21/20 11:32 White Blood Count 16.7 x10^3/uL (4.0-11.0) Red Blood Count 4.30 x10^6/uL (4.30-5.70) Hemoglobin 13.0 g/dL (13.0-17.5) Hematocrit 39.0 % (39.0-53.0) Mean Corpuscular Volume 91 fL (79-100) Mean Corpuscular Hemoglobin 30 pg (25-35) Mean Corpuscular Hemoglobin Concent 33 g/dL (31-37) Red Cell Distribution Width 17.4 % (11.5-14.5) Platelet Count 230 x10^3/uL (140-400) Sodium Level 134 mmol/L (136-145) Potassium Level 3.8 mmol/L (3.5-5.1) Chloride Level 94 mmol/L (98-107) Carbon Dioxide Level 27 mmol/L (21-32) Anion Gap 13 (6-14) Blood Urea Nitrogen 8 mg/dL (8-26) Creatinine 0.7 mg/dL (0.7-1.3) Estimated GFR (Cockcroft-Gault) 122.0 BUN/Creatinine Ratio 11 (6-20) Glucose Level 255 mg/dL (70-99) Calcium Level 8.7 mg/dL (8.5-10.1) Total Bilirubin 0.7 mg/dL (0.2-1.0) Aspartate Amino Transf (AST/SGOT) 35 U/L (15-37) Alanine Aminotransferase (ALT/SGPT) 52 U/L (16-63) Alkaline Phosphatase 148 U/L (46-116) Total Protein 6.9 g/dL (6.4-8.2) Albumin 2.9 g/dL (3.4-5.0) Albumin/Globulin Ratio 0.7 (1.0-1.7) Glucose (Fingerstick) 306 mg/dL (70-99) Laboratory Tests Test 03/20/20 13:25 03/20/20 14:53 03/20/20 15:58 03/20/20 17:14 Glucose (Fingerstick) 352 mg/dL (70-99) 324 mg/dL (70-99) 221 mg/dL (70-99) 174 mg/dL (70-99) Test 03/20/20 20:45 03/21/20 00:08 03/21/20 07:15 03/21/20 07:20 Glucose (Fingerstick) 255 mg/dL (70-99) 269 mg/dL (70-99) 268 mg/dL (70-99) White Blood Count 16.7 x10^3/uL (4.0-11.0) Red Blood Count 4.30 x10^6/uL (4.30-5.70) Hemoglobin 13.0 g/dL (13.0-17.5) Hematocrit 39.0 % (39.0-53.0) Mean Corpuscular Volume 91 fL (79-100) Mean Corpuscular Hemoglobin 30 pg (25-35) Mean Corpuscular Hemoglobin Concent 33 g/dL (31-37) Red Cell Distribution Width 17.4 % (11.5-14.5) Platelet Count 230 x10^3/uL (140-400) Sodium Level 134 mmol/L (136-145) Potassium Level 3.8 mmol/L (3.5-5.1) Chloride Level 94 mmol/L (98-107) Carbon Dioxide Level 27 mmol/L (21-32) Anion Gap 13 (6-14) Blood Urea Nitrogen 8 mg/dL (8-26) Creatinine 0.7 mg/dL (0.7-1.3) Estimated GFR (Cockcroft-Gault) 122.0 BUN/Creatinine Ratio 11 (6-20) Glucose Level 255 mg/dL (70-99) Calcium Level 8.7 mg/dL (8.5-10.1) Total Bilirubin 0.7 mg/dL (0.2-1.0) Aspartate Amino Transf (AST/SGOT) 35 U/L (15-37) Alanine Aminotransferase (ALT/SGPT) 52 U/L (16-63) Alkaline Phosphatase 148 U/L (46-116) Total Protein 6.9 g/dL (6.4-8.2) Albumin 2.9 g/dL (3.4-5.0) Albumin/Globulin Ratio 0.7 (1.0-1.7) Test 03/21/20 11:32 Glucose (Fingerstick) 306 mg/dL (70-99) Microbiology 03/17/20 Blood Culture - Preliminary, Resulted NO GROWTH AFTER 3 DAYS Medications Current Medications Sodium Chloride 1,000 ml @ 1,000 mls/hr 1X ONCE IV Last administered on 03/16/20at 21:33; Start 03/16/20 at 21:30; Stop 03/16/20 at 22:29; Status DC Ondansetron HCl (Zofran) 4 mg 1X ONCE IVP Last administered on 03/16/20at 21:34; Start 03/16/20 at 21:30; Stop 03/16/20 at 21:31; Status DC Morphine Sulfate (Morphine Sulfate) 4 mg 1X ONCE IV Last administered on 03/16/20at 21:34; Start 03/16/20 at 21:30; Stop 03/16/20 at 21:31; Status DC Morphine Sulfate (Morphine Sulfate) 4 mg 1X ONCE IV Last administered on 03/16/20at 22:59; Start 03/16/20 at 23:00; Stop 03/16/20 at 23:01; Status DC Ondansetron HCl (Zofran) 4 mg PRN Q6HRS PRN IV NAUSEA/VOMITING 1ST CHOICE Last administered on 03/17/20at 09:33; Start 03/16/20 at 23:45; Stop 03/17/20 at 23:44; Status DC Morphine Sulfate (Morphine Sulfate) 4 mg PRN Q2HR PRN IV SEVERE PAIN 7-10 Last administered on 03/17/20at 12:10; Start 03/16/20 at 23:45; Stop 03/17/20 at 12:58; Status DC Insulin Human Lispro (HumaLOG) 20 units ONCE ONCE SQ Last administered on 03/17/20at 00:32; Start 03/17/20 at 00:30; Stop 03/17/20 at 00:31; Status DC Zolpidem Tartrate (Ambien) 5 mg PRN QHS PRN PO INSOMNIA Last administered on 03/20/20at 20:37; Start 03/17/20 at 02:00 Zolpidem Tartrate (Ambien) 5 mg 1X ONCE PO Last administered on 03/17/20at 01:59; Start 03/17/20 at 02:00; Stop 03/17/20 at 02:01; Status DC Pantoprazole Sodium (PROTONIX VIAL for IV PUSH) 40 mg BIDAC IVP Last administered on 03/21/20at 10:04; Start 03/17/20 at 12:00 Amlodipine Besylate (Norvasc) 10 mg DAILY PO Last administered on 03/21/20at 10:03; Start 03/17/20 at 13:00 Atorvastatin Calcium (Lipitor) 40 mg DAILY PO Last administered on 03/21/20at 10:03; Start 03/17/20 at 13:00 Gabapentin (Neurontin) 600 mg PRN BID PRN PO PAIN Last administered on 03/21/20at 06:34; Start 03/17/20 at 12:15 Lorazepam (Ativan) 0.5 mg HS PO Last administered on 03/20/20at 20:31; Start 03/17/20 at 21:00 Calcium Carbonate/ Glycine (Tums) 500 mg PRN Q4HRS PRN PO INDIGESTION; Start 03/17/20 at 12:30 Duloxetine HCl (Cymbalta) 60 mg DAILY PO Last administered on 03/21/20at 10:02; Start 03/17/20 at 13:00 Non-Formulary Medication (Lansoprazole ) 1 cap DAILY PO ; Start 03/18/20 at 09:00; Status UNV Multivitamins (Thera M Plus) 1 tab DAILY PO Last administered on 03/21/20at 10:03; Start 03/18/20 at 09:00 Metoprolol Tartrate (Lopressor) 50 mg BID PO Last administered on 03/21/20at 10:04; Start 03/17/20 at 21:00 Fish Oil (Fish Oil) 2,000 mg BID PO Last administered on 03/21/20at 10:02; Start 03/17/20 at 21:00 Sodium Chloride (Normal Saline Flush) 3 ml QSHIFT PRN IV AFTER MEDS AND BLOOD DRAWS; Start 03/17/20 at 12:45 Multivitamins 10 ml/Thiamine HCl 100 mg/Folic Acid 1 mg/Sodium Chloride 1,011.2 ml @ 125 mls/ hr 1X ONCE IV Last administered on 03/17/20at 14:17; Start 03/17/20 at 14:00; Stop 03/17/20 at 22:05; Status DC Ondansetron HCl (Zofran) 4 mg PRN Q4HRS PRN IV NAUSEA/VOMITING; Start 03/17/20 at 12:45 Acetaminophen (Tylenol) 650 mg PRN Q4HRS PRN PO TEMP OVER 100.4F OR MILD PAIN Last administered on 03/21/20at 06:34; Start 03/17/20 at 12:45 Clonidine HCl (Catapres) 0.1 mg PRN Q6HRS PRN PO SBP>160 OR DBP>90; Start 03/17/20 at 12:45 Sodium Monofluorophosphate (Fleet Adult) 133 ml PRN DAILY PRN [place] CONSTIPATION; Start 03/17/20 at 12:45 Docusate Sodium (Colace) 100 mg PRN BID PRN PO HARD STOOLS; Start 03/17/20 at 12:45 Albuterol Sulfate (Ventolin Neb Soln) 2.5 mg PRN Q4HRS PRN NEB SHORTNESS OF BREATH; Start 03/17/20 at 12:45 Lorazepam (Ativan) 0.5 mg PRN Q4HRS PRN PO ANXIETY / AGITATION Last administered on 03/20/20at 15:31; Start 03/17/20 at 12:45 Lorazepam (Ativan Inj) 2 mg PRN Q4HRS PRN IV ANXIETY / AGITATION Last administered on 03/21/20at 00:09; Start 03/17/20 at 12:45 Enoxaparin Sodium (Lovenox 40mg Syringe) 40 mg Q12H SQ Last administered on 03/21/20at 10:01; Start 03/17/20 at 13:00 Iohexol (Omnipaque 300 Mg/ml) 75 ml 1X ONCE IV Last administered on 03/17/20at 13:19; Start 03/17/20 at 13:00; Stop 03/17/20 at 13:14; Status DC Hydromorphone HCl (Dilaudid) 1 mg PRN Q3HRS PRN IVP MODERATE TO SEVERE PAIN Last administered on 03/21/20at 06:28; Start 03/17/20 at 13:00 Info (CONTRAST GIVEN -- Rx MONITORING) 1 each PRN DAILY PRN MC SEE COMMENTS; Start 03/17/20 at 13:30; Stop 03/19/20 at 13:29; Status DC Multivitamins (Thera M Plus) 1 tab DAILY PO ; Start 03/18/20 at 09:00 Folic Acid (Folic Acid) 1 mg DAILY PO Last administered on 03/21/20at 10:02; Start 03/18/20 at 09:00 Thiamine Mononitrate (Vitamin B-1) 100 mg DAILY PO Last administered on 03/21/20at 10:02; Start 03/18/20 at 09:00 Thiamine HCl 100 mg/Dextrose 51 ml @ 100 mls/hr DAILY IV ; Start 03/22/20 at 09:00; Stop 03/26/20 at 09:31; Status UNV Lorazepam (Ativan) 4 mg PRN Q1HR PRN PO For CIWA 8-14 Last administered on 03/20/20at 10:42; Start 03/17/20 at 13:30 Lorazepam (Ativan) 8 mg PRN Q1HR PRN PO For CIWA 15 or greater; Start 03/17/20 at 13:30 Lorazepam (Ativan Inj) 2 mg PRN Q1HR PRN IV For CIWA 8-14; Start 03/17/20 at 13:30 Lorazepam (Ativan Inj) 4 mg PRN Q1HR PRN IV For CIWA 15 or greater Last administered on 03/18/20at 14:28; Start 03/17/20 at 13:30 Haloperidol Lactate (Haldol Inj) 5 mg PRN Q4HRS PRN IVP Hallucinatns,Confusn,Delirium; Start 03/17/20 at 13:30 Diphenhydramine HCl (Benadryl) 25 mg PRN Q15MIN PRN IVP EPS symptoms 2'Haldol admin; Start 03/17/20 at 13:30 Clonidine HCl (Catapres) 0.1 mg PRN Q1HR PRN PO SBP > 180 or DBP > 100, MRX3; Start 03/17/20 at 13:30 Lorazepam (Ativan Inj) 2 mg PRN Q15MIN PRN IV SEE COMMENTS; Start 03/17/20 at 13:30; Status UNV Lorazepam (Ativan Inj) 4 mg PRN Q15MIN PRN IV SEE COMMENTS; Start 03/17/20 at 13:30; Status UNV Insulin Human Lispro (HumaLOG) 0-5 UNITS TIDWMEALS SQ Last administered on 03/17/20at 18:05; Start 03/17/20 at 17:30; Stop 03/18/20 at 03:57; Status DC Dextrose (Dextrose 50%-Water Syringe) 12.5 gm PRN Q15MIN PRN IV SEE COMMENTS; Start 03/17/20 at 17:30 Insulin Human Lispro (HumaLOG) 0-5 UNITS Q6HRS SQ Last administered on 03/20/20at 05:46; Start 03/18/20 at 06:00; Stop 03/20/20 at 10:05; Status DC Perflutren Protein Type A Microsphe (Optison) 0.66 mg STK-MED ONCE IV ; Start 03/18/20 at 10:47; Stop 03/18/20 at 10:47; Status DC Perflutren Protein Type A Microsphe (Optison) 0.66 mg 1X ONCE IV Last administered on 03/18/20at 15:28; Start 03/18/20 at 15:30; Stop 03/18/20 at 15:40; Status DC Insulin Human Lispro (HumaLOG) 7 units 1X ONCE SQ Last administered on 03/20/20at 00:50; Start 03/20/20 at 01:00; Stop 03/20/20 at 01:01; Status DC Insulin Human Regular 100 ml @ 15.04 mls/ hr 1X ONCE IV Last administered on 03/20/20at 13:48; Start 03/20/20 at 10:30; Stop 03/20/20 at 17:08; Status DC Insulin Human Lispro (HumaLOG) 0-7 UNITS QIDACHS SQ Last administered on 03/21/20at 10:12; Start 03/21/20 at 00:00 Dextrose (Dextrose 50%-Water Syringe) 12.5 gm PRN Q15MIN PRN IV SEE COMMENTS; Start 03/21/20 at 00:00 Acetaminophen/ Hydrocodone Bitart (Lortab 7.5/325) 1 tab PRN Q6HRS PRN PO MODERATE-SEVERE PAIN Last administered on 03/21/20at 10:02; Start 03/21/20 at 09:45 Iohexol (Omnipaque 300 Mg/ml) 75 ml 1X ONCE IV Last administered on 03/21/20at 10:56; Start 03/21/20 at 10:30; Stop 03/21/20 at 10:31; Status DC Info (CONTRAST GIVEN -- Rx MONITORING) 1 each PRN DAILY PRN MC SEE COMMENTS; Start 03/21/20 at 10:30; Stop 03/23/20 at 10:29 Active Scripts Active Atorvastatin Calcium 40 Mg Tablet 1 Tab PO DAILY Lovaza ([place]-3 Acid Ethyl Esters) 1 Gm Capsule 2 Cap PO BID 90 Days Reported Ativan (Lorazepam) 0.5 Mg Tablet 0.5 Mg PO HS Duloxetine Hcl 60 Mg Capsule. 1 Cap PO DAILY Gabapentin 300 Mg Capsule 2 Cap PO PRN BID PRN Humalog (Insulin Lispro) 100 Unit/1 Ml Vial Unknown Dose SQ TIDAC MDD 60 per Sliding Scale Lantus Solostar (Insulin Glargine,Hum.rec.anlog) 100 Unit/1 Ml Insuln.pen 30 Uni ts SQ BID [hemp botanicals] Multivitamins (Multivitamin) 1 Each Tablet 1 Tab PO DAILY Calcium (Calcium Carbonate) 500 Mg Tab.chew 500 Mg PO PRN Q4HRS PRN Lansoprazole 30 Mg Capsule. 1 Cap PO DAILY Tramadol Hcl 50 Mg Tablet 50 Mg PO PRN BID PRN Bystolic (Nebivolol Hcl) 20 Mg Tablet 20 Mg PO DAILY Amlodipine Besylate 10 Mg Tablet 10 Mg PO DAILY Vitals/I & O Vital Sign - Last 24 Hours 03/20/20 03/20/20 03/20/20 03/20/20 13:25 13:58 14:30 15:00 Temp 97.4 97.8 97.4 97.8 Pulse 94 94 Resp B/P (MAP) 140/83 (102) 148/86 (106) Pulse Ox 91 91 91 93 O2 Delivery Room Air Room Air Room Air Room Air 03/20/20 03/20/20 03/20/20 03/20/20 19:00 20:00 20:30 20:31 Temp 97.6 97.6 Pulse 98 94 Resp 22 B/P (MAP) 150/90 (110) 148/86 Pulse Ox 94 93 O2 Delivery Room Air Room Air Room Air 03/20/20 03/20/20 03/21/20 03/21/20 21:00 23:00 00:10 00:40 Temp 97.5 97.5 Pulse 84 Resp B/P (MAP) 137/91 (106) Pulse Ox 95 95 95 95 O2 Delivery Room Air Room Air Room Air Room Air 03/21/20 03/21/20 03/21/20 03/21/20 02:50 03:13 03:44 06:28 Temp 98.5 98.5 Pulse 89 Resp 20 18 22 B/P (MAP) 140/91 (107) Pulse Ox 91 91 95 95 O2 Delivery Room Air Room Air Room Air Room Air 03/21/20 03/21/20 03/21/20 03/21/20 07:00 07:18 08:00 10:03 Temp 98.9 98.9 Pulse 97 89 Resp 18 B/P (MAP) 132/93 (106) 140/91 Pulse Ox 92 95 O2 Delivery Room Air Room Air Room Air 03/21/20 03/21/20 10:04 11:00 Temp 98.7 98.7 Pulse 89 89 Resp 18 B/P (MAP) 140/91 122/89 (100) Pulse Ox 91 O2 Delivery Room Air Intake and Output 03/20/20 03/20/20 03/21/20 14:59 22:59 06:59 Intake Total 880 ml 200 ml Output Total 300 ml Balance 580 ml 200 ml Justicifation of Admission Dx: Justifications for Admission: Justification of Admission Dx: Yes SHREE HASKINS MD Mar 21, 2020 12:37
[2020-03-21] MEDS ORDERED: IV NORMAL SALINE 1000ML BAG 1,000 ML IV ONE (12:45)
[2020-03-21 15:00] VITALS: BP 143/95
--- NOTE | 2020-03-21 16:58 | RAD ---
Exam: CT abdomen/pelvis with intravenous contrast Indication: Recurrent pancreatitis, rule out necrosis or pseudocyst Comparison: CT abdomen pelvis 03/17/2020 Technique: Helical CT imaging performed of the abdomen and pelvis after the intravenous administratio n of Omnipaque 300 intravenous contrast. Sagittal and coronal reformats were obtained. One or more of the following individualized dose reduction techniques were utilized for this examinat ion: 1. Automated exposure control 2. Adjustment of the mA and/or kV according to patient size 3. Use of iterative reconstruction technique. Findings: Lower chest: Lung bases are clear. Heart is normal in size. Liver: Liver is enlarged measuring 23 cm in length. No focal lesion. Gallbladder/Biliary Tree: Normal. Pancreas: Peripancreatic fluid/inflammation is unchanged to minimally decreased. The pancreatic body and tail are edematous and there is ill-defined decreased attenuation compared to pancreatic head, al though exam is limited by poor contrast bolus timing. There is abnormality is over approximately 5.5 cm in length, similar to prior exam. There is no drainable fluid collection. No pancreatic or peripan creatic gas. No main duct dilation. The splenic vein is not well opacified, which could be due to pha se of contrast. This was similar to prior exam. Spleen: Normal. Adrenal Glands: Normal. Kidneys/Ureters/Bladder: Normal. Reproductive Organs: Normal. Stomach, small bowel, and colon: Stomach is normal. No small bowel obstruction. Colon is unremarkable . The appendix is normal. There are some collateral vessels seen in the left upper quadrant. Vasculature: Abdominal aorta is normal in caliber. Lymph Nodes: Small mesenteric lymph nodes are likely reactive. Peritoneum and retroperitoneum: No fluid collection or free free air. Bones: No acute osseous abnormality. Moderate degenerative disease at L5-S1 and mild degenerative dis c disease elsewhere. Impression: 1. Acute pancreatitis with unchanged to slightly decreased peripancreatic fluid/inflammation. Unchan ged edema and vague region of hypoattenuation in the pancreatic body/tail which could reflect pancrea tic necrosis. No peripancreatic fluid collection. 2. The splenic vein is not well opacified. This could be technical/due to phase of contrast and subo ptimal contrast bolus timing, although thrombosis is not excluded. Ultrasound could be attempted to f urther evaluate. 3. Hepatomegaly. Electronically signed by: Janette Ledbetter MD (03/21/2020 4:56 PM) [id number]
--- NOTE | 2020-03-21 17:08 | PDOC2 ---
CONSULT Date of Consult Date of Consult DATE: 03/21/20 TIME: 17:03 Reason for Consult Reason for Consult: pancreatitis Referring Physician Referring Physician: Dr. Abdul Identification/Chief Complaint Chief Complaint abd pain Source Source: Chart review, Patient History of Present Illness Reason for Visit: 44 yo M with c/o abd pain and upset stomach. Long standing issues with pancreatitis. Seen in hospital room. Past Medical History Cardiovascular: HTN, Hyperlipidemia Pulmonary: No pertinent hx CENTRAL NERVOUS SYSTEM: Other GI: GERD Heme/Onc: No pertinent hx Hepatobiliary: No pertinent hx Psych: No pertinent hx Musculoskeletal: low back pain, Osteoarthritis Rheumatologic: No pertinent hx Infectious disease: No pertinent hx Renal/: No pertinent hx Endocrine: Diabetes Past Surgical History Past Surgical History: Arthroscopy, Other Family History Family History: Heart Disease Social History <1 pack per day ALCOHOL: heavy Drugs: None, Marijuana Lives: with Family Current Problem List Problem List Problems Medical Problems: (1) Hypertriglyceridemia Status: Acute (2) Intractable nausea and vomiting Status: Acute (3) Pancreatitis Status: Acute Current Medications Current Medications Current Medications Sodium Chloride 1,000 ml @ 1,000 mls/hr 1X ONCE IV Last administered on 03/16/20at 21:33; Start 03/16/20 at 21:30; Stop 03/16/20 at 22:29; Status DC Ondansetron HCl (Zofran) 4 mg 1X ONCE IVP Last administered on 03/16/20at 21:34; Start 03/16/20 at 21:30; Stop 03/16/20 at 21:31; Status DC Morphine Sulfate (Morphine Sulfate) 4 mg 1X ONCE IV Last administered on 03/16/20at 21:34; Start 03/16/20 at 21:30; Stop 03/16/20 at 21:31; Status DC Morphine Sulfate (Morphine Sulfate) 4 mg 1X ONCE IV Last administered on 03/16/20at 22:59; Start 03/16/20 at 23:00; Stop 03/16/20 at 23:01; Status DC Ondansetron HCl (Zofran) 4 mg PRN Q6HRS PRN IV NAUSEA/VOMITING 1ST CHOICE Last administered on 03/17/20at 09:33; Start 03/16/20 at 23:45; Stop 03/17/20 at 23:44; Status DC Morphine Sulfate (Morphine Sulfate) 4 mg PRN Q2HR PRN IV SEVERE PAIN 7-10 Last administered on 03/17/20at 12:10; Start 03/16/20 at 23:45; Stop 03/17/20 at 12:58; Status DC Insulin Human Lispro (HumaLOG) 20 units ONCE ONCE SQ Last administered on 03/17/20at 00:32; Start 03/17/20 at 00:30; Stop 03/17/20 at 00:31; Status DC Zolpidem Tartrate (Ambien) 5 mg PRN QHS PRN PO INSOMNIA Last administered on 03/20/20at 20:37; Start 03/17/20 at 02:00 Zolpidem Tartrate (Ambien) 5 mg 1X ONCE PO Last administered on 03/17/20at 01:59; Start 03/17/20 at 02:00; Stop 03/17/20 at 02:01; Status DC Pantoprazole Sodium (PROTONIX VIAL for IV PUSH) 40 mg BIDAC IVP Last administe red on 03/21/20at 15:55; Start 03/17/20 at 12:00 Amlodipine Besylate (Norvasc) 10 mg DAILY PO Last administered on 03/21/20at 10:03; Start 03/17/20 at 13:00 Atorvastatin Calcium (Lipitor) 40 mg DAILY PO Last administered on 03/21/20at 10:03; Start 03/17/20 at 13:00 Gabapentin (Neurontin) 600 mg PRN BID PRN PO PAIN Last administered on 03/21/20at 06:34; Start 03/17/20 at 12:15 Lorazepam (Ativan) 0.5 mg HS PO Last administered on 03/20/20at 20:31; Start 03/17/20 at 21:00 Calcium Carbonate/ Glycine (Tums) 500 mg PRN Q4HRS PRN PO INDIGESTION; Start 03/17/20 at 12:30 Duloxetine HCl (Cymbalta) 60 mg DAILY PO Last administered on 03/21/20at 10:02; Start 03/17/20 at 13:00 Non-Formulary Medication (Lansoprazole ) 1 cap DAILY PO ; Start 03/18/20 at 09:00; Status UNV Multivitamins (Thera M Plus) 1 tab DAILY PO Last administered on 03/21/20at 10:03; Start 03/18/20 at 09:00 Metoprolol Tartrate (Lopressor) 50 mg BID PO Last administered on 03/21/20at 10:04; Start 03/17/20 at 21:00 Fish Oil (Fish Oil) 2,000 mg BID PO Last administered on 03/21/20at 10:02; Start 03/17/20 at 21:00 Sodium Chloride (Normal Saline Flush) 3 ml QSHIFT PRN IV AFTER MEDS AND BLOOD DRAWS; Start 03/17/20 at 12:45 Multivitamins 10 ml/Thiamine HCl 100 mg/Folic Acid 1 mg/Sodium Chloride 1,011.2 ml @ 125 mls/ hr 1X ONCE IV Last administered on 03/17/20at 14:17; Start 03/17/20 at 14:00; Stop 03/17/20 at 22:05; Status DC Ondansetron HCl (Zofran) 4 mg PRN Q4HRS PRN IV NAUSEA/VOMITING; Start 03/17/20 at 12:45 Acetaminophen (Tylenol) 650 mg PRN Q4HRS PRN PO TEMP OVER 100.4F OR MILD PAIN Last administered on 03/21/20at 06:34; Start 03/17/20 at 12:45 Clonidine HCl (Catapres) 0.1 mg PRN Q6HRS PRN PO SBP>160 OR DBP>90; Start 03/17/20 at 12:45 Sodium Monofluorophosphate (Fleet Adult) 133 ml PRN DAILY PRN OK CONSTIPATION; Start 03/17/20 at 12:45 Docusate Sodium (Colace) 100 mg PRN BID PRN PO HARD STOOLS; Start 03/17/20 at 12:45 Albuterol Sulfate (Ventolin Neb Soln) 2.5 mg PRN Q4HRS PRN NEB SHORTNESS OF BREATH; Start 03/17/20 at 12:45 Lorazepam (Ativan) 0.5 mg PRN Q4HRS PRN PO ANXIETY / AGITATION Last administered on 03/20/20at 15:31; Start 03/17/20 at 12:45 Lorazepam (Ativan Inj) 2 mg PRN Q4HRS PRN IV ANXIETY / AGITATION Last administered on 03/21/20at 14:17; Start 03/17/20 at 12:45 Enoxaparin Sodium (Lovenox 40mg Syringe) 40 mg Q12H SQ Last administered on 03/21/20at 10:01; Start 03/17/20 at 13:00 Iohexol (Omnipaque 300 Mg/ml) 75 ml 1X ONCE IV Last administered on 03/17/20at 13:19; Start 03/17/20 at 13:00; Stop 03/17/20 at 13:14; Status DC Hydromorphone HCl (Dilaudid) 1 mg PRN Q3HRS PRN IVP MODERATE TO SEVERE PAIN Last administered on 03/21/20at 12:50; Start 03/17/20 at 13:00 Info (CONTRAST GIVEN -- Rx MONITORING) 1 each PRN DAILY PRN MC SEE COMMENTS; Start 03/17/20 at 13:30; Stop 03/19/20 at 13:29; Status DC Multivitamins (Thera M Plus) 1 tab DAILY PO ; Start 03/18/20 at 09:00 Folic Acid (Folic Acid) 1 mg DAILY PO Last administered on 03/21/20at 10:02; Start 03/18/20 at 09:00 Thiamine Mononitrate (Vitamin B-1) 100 mg DAILY PO Last administered on 03/21/20at 10:02; Start 03/18/20 at 09:00 Thiamine HCl 100 mg/Dextrose 51 ml @ 100 mls/hr DAILY IV ; Start 03/22/20 at 09:00; Stop 03/26/20 at 09:31; Status UNV Lorazepam (Ativan) 4 mg PRN Q1HR PRN PO For CIWA 8-14 Last administered on 03/20/20at 10:42; Start 03/17/20 at 13:30 Lorazepam (Ativan) 8 mg PRN Q1HR PRN PO For CIWA 15 or greater; Start 03/17/20 at 13:30 Lorazepam (Ativan Inj) 2 mg PRN Q1HR PRN IV For CIWA 8-14; Start 03/17/20 at 13:30 Lorazepam (Ativan Inj) 4 mg PRN Q1HR PRN IV For CIWA 15 or greater Last administered on 03/18/20at 14:28; Start 03/17/20 at 13:30 Haloperidol Lactate (Haldol Inj) 5 mg PRN Q4HRS PRN IVP Hallucinatns,Confusn,Delirium; Start 03/17/20 at 13:30 Diphenhydramine HCl (Benadryl) 25 mg PRN Q15MIN PRN IVP EPS symptoms 2'Haldol admin; Start 03/17/20 at 13:30 Clonidine HCl (Catapres) 0.1 mg PRN Q1HR PRN PO SBP > 180 or DBP > 100, MRX3; Start 03/17/20 at 13:30 Lorazepam (Ativan Inj) 2 mg PRN Q15MIN PRN IV SEE COMMENTS; Start 03/17/20 at 13:30; Status UNV Lorazepam (Ativan Inj) 4 mg PRN Q15MIN PRN IV SEE COMMENTS; Start 03/17/20 at 13:30; Status UNV Insulin Human Lispro (HumaLOG) 0-5 UNITS TIDWMEALS SQ Last administered on 03/17/20at 18:05; Start 03/17/20 at 17:30; Stop 03/18/20 at 03:57; Status DC Dextrose (Dextrose 50%-Water Syringe) 12.5 gm PRN Q15MIN PRN IV SEE COMMENTS; Start 03/17/20 at 17:30; Stop 03/21/20 at 13:04; Status DC Insulin Human Lispro (HumaLOG) 0-5 UNITS Q6HRS SQ Last administered on 03/20/20at 05:46; Start 03/18/20 at 06:00; Stop 03/20/20 at 10:05; Status DC Perflutren Protein Type A Microsphe (Optison) 0.66 mg STK-MED ONCE IV ; Start 03/18/20 at 10:47; Stop 03/18/20 at 10:47; Status DC Perflutren Protein Type A Microsphe (Optison) 0.66 mg 1X ONCE IV Last administered on 03/18/20at 15:28; Start 03/18/20 at 15:30; Stop 03/18/20 at 15:40; Status DC Insulin Human Lispro (HumaLOG) 7 units 1X ONCE SQ Last administered on 03/20/20at 00:50; Start 03/20/20 at 01:00; Stop 03/20/20 at 01:01; Status DC Insulin Human Regular 100 ml @ 15.04 mls/ hr 1X ONCE IV Last administered on 03/20/20at 13:48; Start 03/20/20 at 10:30; Stop 03/20/20 at 17:08; Status DC Insulin Human Lispro (HumaLOG) 0-7 UNITS QIDACHS SQ Last administered on 03/21/20at 13:02; Start 03/21/20 at 00:00 Dextrose (Dextrose 50%-Water Syringe) 12.5 gm PRN Q15MIN PRN IV SEE COMMENTS; Start 03/21/20 at 00:00 Acetaminophen/ Hydrocodone Bitart (Lortab 7.5/325) 1 tab PRN Q6HRS PRN PO MODERATE-SEVERE PAIN Last administered on 03/21/20at 15:55; Start 03/21/20 at 09:45 Iohexol (Omnipaque 300 Mg/ml) 75 ml 1X ONCE IV Last administered on 03/21/20at 10:56; Start 03/21/20 at 10:30; Stop 03/21/20 at 10:31; Status DC Info (CONTRAST GIVEN -- Rx MONITORING) 1 each PRN DAILY PRN MC SEE COMMENTS; Start 03/21/20 at 10:30; Stop 03/23/20 at 10:29 Sodium Chloride 1,000 ml @ 125 mls/hr 1X ONCE IV Last administered on 03/21/20at 12:49; Start 03/21/20 at 12:45; Stop 03/21/20 at 20:44 Active Scripts Active Atorvastatin Calcium 40 Mg Tablet 1 Tab PO DAILY Lovaza ([place]-3 Acid Ethyl Esters) 1 Gm Capsule 2 Cap PO BID 90 Days Reported Ativan (Lorazepam) 0.5 Mg Tablet 0.5 Mg PO HS Duloxetine Hcl 60 Mg Capsule.dr 1 Cap PO DAILY Gabapentin 300 Mg Capsule 2 Cap PO PRN BID PRN Humalog (Insulin Lispro) 100 Unit/1 Ml Vial Unknown Dose SQ TIDAC MDD 60 per Sliding Scale Lantus Solostar (Insulin Glargine,Hum.rec.anlog) 100 Unit/1 Ml Insuln.pen 30 Units SQ BID [hemp botanicals] Multivitamins (Multivitamin) 1 Each Tablet 1 Tab PO DAILY Calcium (Calcium Carbonate) 500 Mg Tab.chew 500 Mg PO PRN Q4HRS PRN Lansoprazole 30 Mg Capsule. 1 Cap PO DAILY Tramadol Hcl 50 Mg Tablet 50 Mg PO PRN BID PRN Bystolic (Nebivolol Hcl) 20 Mg Tablet 20 Mg PO DAILY Amlodipine Besylate 10 Mg Tablet 10 Mg PO DAILY Allergies Allergies: Coded Allergies: No Known Drug Allergies (Unverified , 09/21/15) ROS Gastrointestinal: Yes Nausea, Yes Abdominal Pain Physical Exam General: Alert, Oriented X3, Cooperative, mild distress HEENT: Atraumatic Lungs: Normal air movement Abdomen: Soft, Other (obese, TTP epigastric) Extremities: No clubbing, No cyanosis Skin: No rashes, No breakdown Neuro: Normal speech, Sensation intact Psych/Mental Status: Mental status NL, Mood NL Vitals VITALS Vital Signs Date Time Temp Pulse Resp B/P (MAP) Pulse Ox O2 Delivery O2 Flow Rate FiO2 03/21/20 15:00 98.7 95 18 143/95 (111) 94 Room Air 98.7 Labs Labs Laboratory Tests Test 03/19/20 18:00 03/19/20 23:54 03/20/20 02:02 03/20/20 05:37 Glucose (Fingerstick) 300 mg/dL (70-99) 358 mg/dL (70-99) 296 mg/dL (70-99) 292 mg/dL (70-99) Test 03/20/20 07:15 03/20/20 13:25 03/20/20 14:53 03/20/20 15:58 White Blood Count 11.8 x10^3/uL (4.0-11.0) Hemoglobin 12.6 g/dL (13.0-17.5) Hematocrit 38.2 % (39.0-53.0) Platelet Count 257 x10^3/uL (140-400) Sodium Level 134 mmol/L (136-145) Potassium Level 3.5 mmol/L (3.5-5.1) Chloride Level 95 mmol/L (98-107) Carbon Dioxide Level 32 mmol/L (21-32) Anion Gap 7 (6-14) Blood Urea Nitrogen 8 mg/dL (8-26) Creatinine 1.0 mg/dL (0.7-1.3) Estimated GFR (Cockcroft-Gault) 80.8 BUN/Creatinine Ratio 8 (6-20) Glucose Level 278 mg/dL (70-99) Calcium Level 9.2 mg/dL (8.5-10.1) Total Bilirubin 0.9 mg/dL (0.2-1.0) Aspartate Amino Transf (AST/SGOT) 39 U/L (15-37) Alanine Aminotransferase (ALT/SGPT) 51 U/L (16-63) Alkaline Phosphatase 153 U/L (46-116) Total Protein 7.8 g/dL (6.4-8.2) Albumin 2.8 g/dL (3.4-5.0) Albumin/Globulin Ratio 0.6 (1.0-1.7) Triglycerides Level 171 mg/dL (0-150) Lipase 489 U/L (73-393) Glucose (Fingerstick) 352 mg/dL (70-99) 324 mg/dL (70-99) 221 mg/dL (70-99) Test 03/20/20 17:14 03/20/20 20:45 03/21/20 00:08 03/21/20 07:15 Glucose (Fingerstick) 174 mg/dL (70-99) 255 mg/dL (70-99) 269 mg/dL (70-99) 268 mg/dL (70-99) Test 03/21/20 07:20 03/21/20 11:32 03/21/20 16:41 White Blood Count 16.7 x10^3/uL (4.0-11.0) Red Blood Count 4.30 x10^6/uL (4.30-5.70) Hemoglobin 13.0 g/dL (13.0-17.5) Hematocrit 39.0 % (39.0-53.0) Mean Corpuscular Volume 91 fL (79-100) Mean Corpuscular Hemoglobin 30 pg (25-35) Mean Corpuscular Hemoglobin Concent 33 g/dL (31-37) Red Cell Distribution Width 17.4 % (11.5-14.5) Platelet Count 230 x10^3/uL (140-400) Sodium Level 134 mmol/L (136-145) Potassium Level 3.8 mmol/L (3.5-5.1) Chloride Level 94 mmol/L (98-107) Carbon Dioxide Level 27 mmol/L (21-32) Anion Gap 13 (6-14) Blood Urea Nitrogen 8 mg/dL (8-26) Creatinine 0.7 mg/dL (0.7-1.3) Estimated GFR (Cockcroft-Gault) 122.0 BUN/Creatinine Ratio 11 (6-20) Glucose Level 255 mg/dL (70-99) Calcium Level 8.7 mg/dL (8.5-10.1) Total Bilirubin 0.7 mg/dL (0.2-1.0) Aspartate Amino Transf (AST/SGOT) 35 U/L (15-37) Alanine Aminotransferase (ALT/SGPT) 52 U/L (16-63) Alkaline Phosphatase 148 U/L (46-116) Total Protein 6.9 g/dL (6.4-8.2) Albumin 2.9 g/dL (3.4-5.0) Albumin/Globulin Ratio 0.7 (1.0-1.7) Glucose (Fingerstick) 306 mg/dL (70-99) 249 mg/dL (70-99) Laboratory Tests Test 03/20/20 17:14 03/20/20 20:45 03/21/20 00:08 03/21/20 07:15 Glucose (Fingerstick) 174 mg/dL (70-99) 255 mg/dL (70-99) 269 mg/dL (70-99) 268 mg/dL (70-99) Test 03/21/20 07:20 03/21/20 11:32 03/21/20 16:41 White Blood Count 16.7 x10^3/uL (4.0-11.0) Red Blood Count 4.30 x10^6/uL (4.30-5.70) Hemoglobin 13.0 g/dL (13.0-17.5) Hematocrit 39.0 % (39.0-53.0) Mean Corpuscular Volume 91 fL (79-100) Mean Corpuscular Hemoglobin 30 pg (25-35) Mean Corpuscular Hemoglobin Concent 33 g/dL (31-37) Red Cell Distribution Width 17.4 % (11.5-14.5) Platelet Count 230 x10^3/uL (140-400) Sodium Level 134 mmol/L (136-145) Potassium Level 3.8 mmol/L (3.5-5.1) Chloride Level 94 mmol/L (98-107) Carbon Dioxide Level 27 mmol/L (21-32) Anion Gap 13 (6-14) Blood Urea Nitrogen 8 mg/dL (8-26) Creatinine 0.7 mg/dL (0.7-1.3) Estimated GFR (Cockcroft-Gault) 122.0 BUN/Creatinine Ratio 11 (6-20) Glucose Level 255 mg/dL (70-99) Calcium Level 8.7 mg/dL (8.5-10.1) Total Bilirubin 0.7 mg/dL (0.2-1.0) Aspartate Amino Transf (AST/SGOT) 35 U/L (15-37) Alanine Aminotransferase (ALT/SGPT) 52 U/L (16-63) Alkaline Phosphatase 148 U/L (46-116) Total Protein 6.9 g/dL (6.4-8.2) Albumin 2.9 g/dL (3.4-5.0) Albumin/Globulin Ratio 0.7 (1.0-1.7) Glucose (Fingerstick) 306 mg/dL (70-99) 249 mg/dL (70-99) Images Images CT c/w pancreatitis, possible gallstone by US Assessment/Plan Assessment/Plan pancreatitis, favor Etoh, but possible gallstone cont ivf and supportive care suspect component for chronic pancreatitis ultimately may benefits from cholecystectomy, but would favor resolution of pancreatitis first. Thanks for consult! JOSE AGUIRRE MD Mar 21, 2020 17:08
[2020-03-21 19:00] VITALS: BP 147/94
[2020-03-21] MEDS: cloNIDine HCL 0.1 MG TABLET PO PRN (20:25)
[2020-03-21] MEDS: LORazepam 0.5 MG TABLET PO SCH (20:27)
[2020-03-21] MEDS: ZOLPIDEM 5 MG TABLET. PO PRN (20:35)
[2020-03-21 22:35] VITALS: BP 159/84
--- NOTE | 2020-03-22 02:22 | NUR ---
Patient given dilaudid per request, patient denies any shakiness, tremors or sweating, patient tells this life underwriter, "You know there are people in this room. right?" Patient is asked if hallucinating, patient denies, "I know what hallucinations are...I've had them in the past...as sure as I'm here talking to you, I'm not hallucinating...like, I'm not just having a conversation with someone sitting in that chair..So, no, I'm not hallucinating...I've seen the light come on, and my socks are draped across the toilet...Now, I didn't do that...Did you?" Informed that, no, this life underwriter did not do either of them, Patient is also informed that should he be having any hallucinations, to let this nurse know, pt verbalizes to do so. Monitoring.
[2020-03-22 03:00] VITALS: BP 140/92
[2020-03-22 07:00] VITALS: BP 144/100
[2020-03-22] MEDS: cloNIDine HCL 0.1 MG TABLET PO PRN (07:46)
[2020-03-22] MEDS: PANTOPRAZOLE IV PUSH 40 MG VIAL. IVP SCH (07:47)
[2020-03-22] MEDS: HYDROcodone/APAP 7.5/325MG 1 TAB TABLET PO PRN (07:47)
[2020-03-22] MEDS: LORazepam 0.5 MG TABLET PO SCH (07:51)
[2020-03-22] MEDS: INSULIN LISPRO 300 UNITS/3 ML VIAL. SQ SCH (07:57)
[2020-03-22] MEDS ORDERED: THIAMINE INJ 100 MG in IV DEXTROSE 5% 50 ML IV SCH (09:00)
--- NOTE | 2020-03-22 09:27 | NUR ---
SW following. Discussed with RN, pt from home with family, room air, full liquid diet. Pt apparently vomited last night. RN advised no SW needs at this time. SW will continue to follow.
[2020-03-22] MEDS: FOLIC ACID 1 MG TABLET. PO SCH (09:49)
[2020-03-22] MEDS: OMEGA-3 FATTY ACIDS/FISH OIL 1,000 MG CAPSULE. PO SCH (09:50)
[2020-03-22] MEDS: DULoxetine HCL 30 MG CAPSULE.DR PO SCH (09:50)
[2020-03-22] MEDS: MULTIVITAMIN with MINERAL TABLET. PO SCH (09:51)
[2020-03-22] MEDS: ATORVASTATIN CALCIUM 40 MG TABLET. PO SCH (09:51)
[2020-03-22] MEDS: THIAMINE 100 MG TABLET. PO SCH (09:51)
[2020-03-22] MEDS: amLODIPine BESYLATE 10 MG TABLET PO SCH (09:51)
[2020-03-22] MEDS: METOPROLOL TART IMMED RELEASE 50 MG TABLET. PO SCH (09:52)
[2020-03-22] MEDS: GABAPENTIN 300 MG CAPSULE. PO PRN (09:52)
--- NOTE | 2020-03-22 10:06 | PDOC ---
YUE LEVINE SWAMPER 03/22/20 1006: SURGICAL PROGRESS NOTE DATE: 03/22/20 TIME: 10:05 Subjective worsening LUQ pain medication not helping much Vital Signs Vital Signs Date Time Temp Pulse Resp B/P (MAP) Pulse Ox O2 Delivery O2 Flow Rate FiO2 03/22/20 09:52 95 144/100 03/22/20 07:00 97.6 18 98 Room Air 97.6 I&O Intake and Output 03/22/20 07:00 Intake Total 1180 ml Output Total 800 ml Balance 380 ml Intake Oral 1180 ml Output Urine Total 800 ml General: Alert, Cooperative Abdomen: Soft, Other (TTP LUQ) Labs Laboratory Tests Test 03/20/20 13:25 03/20/20 14:53 03/20/20 15:58 03/20/20 17:14 Glucose (Fingerstick) 352 mg/dL (70-99) 324 mg/dL (70-99) 221 mg/dL (70-99) 174 mg/dL (70-99) Test 03/20/20 20:45 03/21/20 00:08 03/21/20 07:15 03/21/20 07:20 Glucose (Fingerstick) 255 mg/dL (70-99) 269 mg/dL (70-99) 268 mg/dL (70-99) White Blood Count 16.7 x10^3/uL (4.0-11.0) Red Blood Count 4.30 x10^6/uL (4.30-5.70) Hemoglobin 13.0 g/dL (13.0-17.5) Hematocrit 39.0 % (39.0-53.0) Mean Corpuscular Volume 91 fL (79-100) Mean Corpuscular Hemoglobin 30 pg (25-35) Mean Corpuscular Hemoglobin Concent 33 g/dL (31-37) Red Cell Distribution Width 17.4 % (11.5-14.5) Platelet Count 230 x10^3/uL (140-400) Sodium Level 134 mmol/L (136-145) Potassium Level 3.8 mmol/L (3.5-5.1) Chloride Level 94 mmol/L (98-107) Carbon Dioxide Level 27 mmol/L (21-32) Anion Gap 13 (6-14) Blood Urea Nitrogen 8 mg/dL (8-26) Creatinine 0.7 mg/dL (0.7-1.3) Estimated GFR (Cockcroft-Gault) 122.0 BUN/Creatinine Ratio 11 (6-20) Glucose Level 255 mg/dL (70-99) Calcium Level 8.7 mg/dL (8.5-10.1) Total Bilirubin 0.7 mg/dL (0.2-1.0) Aspartate Amino Transf (AST/SGOT) 35 U/L (15-37) Alanine Aminotransferase (ALT/SGPT) 52 U/L (16-63) Alkaline Phosphatase 148 U/L (46-116) Total Protein 6.9 g/dL (6.4-8.2) Albumin 2.9 g/dL (3.4-5.0) Albumin/Globulin Ratio 0.7 (1.0-1.7) Test 03/21/20 11:32 03/21/20 16:41 03/21/20 19:53 03/22/20 07:20 Glucose (Fingerstick) 306 mg/dL (70-99) 249 mg/dL (70-99) 277 mg/dL (70-99) 306 mg/dL (70-99) Laboratory Tests Test 03/21/20 11:32 03/21/20 16:41 03/21/20 19:53 03/22/20 07:20 Glucose (Fingerstick) 306 mg/dL (70-99) 249 mg/dL (70-99) 277 mg/dL (70-99) 306 mg/dL (70-99) Problem List Problems Medical Problems: (1) Hypertriglyceridemia Status: Acute (2) Intractable nausea and vomiting Status: Acute (3) Pancreatitis Status: Acute Assessment/Plan pancreatitis, would rec ongoing care, may need to back off diet no current surgical plans, consider shante once pancreatitis resolved Justicifation of Admission Dx: Justifications for Admission: Justification of Admission Dx: Yes JOSE AGUIRRE MD 03/22/20 1307: SURGICAL PROGRESS NOTE Assessment/Plan Pt seen and examined. Agree with Ms. Levine's note Pt feels mildly improved abd soft, james some PO cont supportive care JULIANNAYUERU García APRN Mar 22, 2020 10:06 JOSE AGUIRRE MD Mar 22, 2020 13:07
[2020-03-22 10:30] LABS: HEMATOCRIT 36.8 % (39.0-53.0); HEMOGLOBIN 12.6 g/dL (13.0-17.5); RED BLOOD COUNT 4.07 x10^6/uL (4.30-5.70); RED CELL DISTRIBUTION WIDTH 17.7 % (11.5-14.5)
[2020-03-22 11:00] VITALS: BP 122/71
[2020-03-22] MEDS ORDERED: ONDA4TAB7 PO (11:13)
[2020-03-22] MEDS ORDERED: HYDR-2765 PO (11:13)
--- NOTE | 2020-03-22 11:15 | PDOC ---
Date of Service: DATE: 03/22/20 TIME: 11:04 Subjective: Subjective: I saw him earlier this morning. He was waiting for pain medication and said he was "trying not to cry." Has ongoing epigastric and LUQ pain, now also some pain "like a knife" in LLQ. Has stooled. Tells me not interested in eating more than liquids. Objective: Objective: D/w nurse - vomited after some oatmeal yesterday but then tolerated PO including rice and chicken noodle soup last night. Reviewed chart - ?hallucinating last night? Reviewed surgery notes - may benefit from cholecystectomy ultimately (but not now). Discussed w/ cardiology who have seen him in the past (most recently 12/2019) re: hypertriglyceridemia treatment - consider fenofibrate w/ monitoring of LFTs. Vascepa is another option. Vital Signs: Vital Signs Date Time Temp Pulse Resp B/P (MAP) Pulse Ox O2 Delivery O2 Flow Rate FiO2 03/22/20 09:52 95 144/100 03/22/20 08:00 Room Air 03/22/20 07:00 97.6 18 98 97.6 Labs: Laboratory Tests Test 03/21/20 11:32 03/21/20 16:41 03/21/20 19:53 03/22/20 07:20 Glucose (Fingerstick) 306 mg/dL 249 mg/dL 277 mg/dL 306 mg/dL Test 03/22/20 10:00 White Blood Count 8.0 x10^3/uL Red Blood Count 4.07 x10^6/uL Hemoglobin 12.6 g/dL Hematocrit 36.8 % Mean Corpuscular Volume 90 fL Mean Corpuscular Hemoglobin 31 pg Mean Corpuscular Hemoglobin Concent 34 g/dL Red Cell Distribution Width 17.7 % Platelet Count 257 x10^3/uL Imaging: CT A/P 03/21 Impression: 1. Acute pancreatitis with unchanged to slightly decreased peripancreatic fluid/inflammation. Unchanged edema and vague region of hypoattenuation in the pancreatic body/tail which could reflect pancreatic necrosis. No peripancreatic fluid collection. 2. The splenic vein is not well opacified. This could be technical/due to phase of contrast and suboptimal contrast bolus timing, although thrombosis is not excluded. Ultrasound could be attempted to further evaluate. 3. Hepatomegaly. PE: GEN: NAD LUNGS: CTAB HEART: RRR ABD: NABS, S/ND/NT NEURO/PSYCH: A & O 3 A/P: Recurrent pancreatitis - hypertriglyceridemia, h/o alcohol use, also possible gallstone Leukocytosis - resolved -- Ongoing pain complaints (with new LLQ pain today) but apparently tolerating some diet (rice, soup)... labs and imaging stable. Will review CT findings, etc. w/ Dr. Meza. Justicifation of Admission Dx: Justifications for Admission: Justification of Admission Dx: Yes MARILYN VASQUEZ Mar 22, 2020 11:15
--- NOTE | 2020-03-22 13:14 | NUR ---
PATIENT DISCHARGED HOME ALONE. MEDS AND FOLLOW UP REVIEWED. PT PROVIDED W/ SUBSTANCE ABUSE EDUCATION AND AGAIN STRONGLY ENCOURAGED TO STOP DRINKING ALCOHOL. PT ADVISED TO FOLLOW UP WITH PRIMARY AND GI IN THE NEXT 2 WEEKS. PT INSTRUCTED TO CALL SURGERY TOMORROW TO INQUIRE ABOUT SCHEDULING OF LAP DEANGELO.
--- NOTE | 2020-03-22 13:39 | PDOC3 ---
Discharge Summary Visit Information Date of Admission: Mar 16, 2020 Date of Discharge: Mar 22, 2020 Final Diagnosis 1. IAcute pancreatitis. 2. Diffuse hepatic steatosis. 3. Severe alcohol abuse 4. morbid obesity, BMI 42 5. GERD 6. INTRACTABLE ABDOMINAL PAIN, gallstone 7. HYPERLIPIDEMIA 8. 4 mm noncalcified nodule seen involving the right upper lobe. This may represent an noncalcified granuloma 9. Obesity? obstructive sleep apnea-hypopnea syndrome. 10. 2018 echo ascending aorta is DILATED at 4.2 cm (Correlate with BSA) 11. intractable nausea and vomiting 12. Hypertriglyceridemia Problems Medical Problems: (1) Hypertriglyceridemia Status: Acute (2) Intractable nausea and vomiting Status: Acute (3) Pancreatitis Status: Acute Brief Hospital Course Allergies Allergies Coded Allergies Type Severity Reaction Last Updated Verified No Known Drug Allergies 09/21/15 No Vital Signs Vital Signs Date Time Temp Pulse Resp B/P (MAP) Pulse Ox O2 Delivery O2 Flow Rate FiO2 03/22/20 11:00 98.6 91 18 122/71 (88) 95 Room Air 98.6 Lab Results Laboratory Tests Test 03/20/20 14:53 03/20/20 15:58 03/20/20 17:14 03/20/20 20:45 Glucose (Fingerstick) 324 mg/dL (70-99) 221 mg/dL (70-99) 174 mg/dL (70-99) 255 mg/dL (70-99) Test 03/21/20 00:08 03/21/20 07:15 03/21/20 07:20 03/21/20 11:32 Glucose (Fingerstick) 269 mg/dL (70-99) 268 mg/dL (70-99) 306 mg/dL (70-99) White Blood Count 16.7 x10^3/uL (4.0-11.0) Red Blood Count 4.30 x10^6/uL (4.30-5.70) Hemoglobin 13.0 g/dL (13.0-17.5) Hematocrit 39.0 % (39.0-53.0) Mean Corpuscular Volume 91 fL (79-100) Mean Corpuscular Hemoglobin 30 pg (25-35) Mean Corpuscular Hemoglobin Concent 33 g/dL (31-37) Red Cell Distribution Width 17.4 % (11.5-14.5) Platelet Count 230 x10^3/uL (140-400) Sodium Level 134 mmol/L (136-145) Potassium Level 3.8 mmol/L (3.5-5.1) Chloride Level 94 mmol/L (98-107) Carbon Dioxide Level 27 mmol/L (21-32) Anion Gap 13 (6-14) Blood Urea Nitrogen 8 mg/dL (8-26) Creatinine 0.7 mg/dL (0.7-1.3) Estimated GFR (Cockcroft-Gault) 122.0 BUN/Creatinine Ratio 11 (6-20) Glucose Level 255 mg/dL (70-99) Calcium Level 8.7 mg/dL (8.5-10.1) Total Bilirubin 0.7 mg/dL (0.2-1.0) Aspartate Amino Transf (AST/SGOT) 35 U/L (15-37) Alanine Aminotransferase (ALT/SGPT) 52 U/L (16-63) Alkaline Phosphatase 148 U/L (46-116) Total Protein 6.9 g/dL (6.4-8.2) Albumin 2.9 g/dL (3.4-5.0) Albumin/Globulin Ratio 0.7 (1.0-1.7) Test 03/21/20 16:41 03/21/20 19:53 03/22/20 07:20 03/22/20 10:00 Glucose (Fingerstick) 249 mg/dL (70-99) 277 mg/dL (70-99) 306 mg/dL (70-99) White Blood Count 8.0 x10^3/uL (4.0-11.0) Red Blood Count 4.07 x10^6/uL (4.30-5.70) Hemoglobin 12.6 g/dL (13.0-17.5) Hematocrit 36.8 % (39.0-53.0) Mean Corpuscular Volume 90 fL (79-100) Mean Corpuscular Hemoglobin 31 pg (25-35) Mean Corpuscular Hemoglobin Concent 34 g/dL (31-37) Red Cell Distribution Width 17.7 % (11.5-14.5) Platelet Count 257 x10^3/uL (140-400) Laboratory Tests Test 03/21/20 16:41 03/21/20 19:53 03/22/20 07:20 03/22/20 10:00 Glucose (Fingerstick) 249 mg/dL (70-99) 277 mg/dL (70-99) 306 mg/dL (70-99) White Blood Count 8.0 x10^3/uL (4.0-11.0) Red Blood Count 4.07 x10^6/uL (4.30-5.70) Hemoglobin 12.6 g/dL (13.0-17.5) Hematocrit 36.8 % (39.0-53.0) Mean Corpuscular Volume 90 fL (79-100) Mean Corpuscular Hemoglobin 31 pg (25-35) Mean Corpuscular Hemoglobin Concent 34 g/dL (31-37) Red Cell Distribution Width 17.7 % (11.5-14.5) Platelet Count 257 x10^3/uL (140-400) Brief Hospital Course Mr. White is a 44 old w/ epigastric/LUQ pain with radiation into left chest associated w/ n/v. prior admit in 2018 for pancreatitis +- hypertriglyceridemia. Dm2, htn, mult meds acute pain, admit with fluids and support new shante diagnosis, will have surg when pancreas is better Discharge Information Condition at Discharge: Improved Follow Up: Weeks Disposition/Orders: D/C to Home Scheduled Amlodipine Besylate (Amlodipine Besylate) 10 Mg Tablet, 10 MG PO DAILY, (Reported) Entered as Reported by: SANTANA VERGARA on 09/21/15 1149 Last Action: Continued on 03/17/201214 by ALLYSSA LIN MD Atorvastatin Calcium (Atorvastatin Calcium) 40 Mg Tablet, 1 TAB PO DAILY for HLD, #30 Ref 5 Prescribed by: RAPHAEL SANTIAGO MD on 01/20/20 1334 Last Action: Continued on 03/17/201214 by ALLYSSA LIN MD Duloxetine Hcl (Duloxetine Hcl) 60 Mg Capsule.dr, 1 CAP PO DAILY for anxiety, (Reported) Entered as Reported by: DAVID SHERIFF on 01/18/20 9543 Last Action: Converted on 03/17/201214 by ALLYSSA LIN MD Insulin Glargine,Hum.rec.anlog (Lantus Solostar) 100 Unit/1 Ml Insuln.pen, 30 UNITS SQ BID for blood sugar, (Reported) Entered as Reported by: DAVID SHERIFF on 01/18/202347 Last Action: HELD on 03/17/201214 by ALLYSSA LIN MD Insulin Lispro (Humalog) 100 Unit/1 Ml Vial, Unknown Dose SQ TIDAC for Blood sugar MDD 60, (Reported) per Sliding Scale Entered as Reported by: DAVID SHERIFF on 01/18/202347 Last Action: HELD on 03/17/201214 by ALLYSSA LIN MD Lansoprazole (Lansoprazole) 30 Mg Capsule.dr, 1 CAP PO DAILY, #30 Ref 5 (Repo rted) Entered as Reported by: LUIS A VICENTE on 01/12/18343 Last Action: Converted on 03/17/201214 by ALLYSSA LIN MD Lorazepam (Ativan) 0.5 Mg Tablet, 0.5 MG PO HS for anxiety, (Reported) Entered as Reported by: MOHSEN WU RN on 01/19/202000 Last Action: Continued on 03/17/201214 by ALLYSSA LIN MD Multivitamin (Multivitamins) 1 Each Tablet, 1 TAB PO DAILY, #90 Ref 3 (Reported) Entered as Reported by: LUIS A VICENTE on 01/12/18343 Last Action: Converted on 03/17/201214 by ALLYSSA LIN MD Nebivolol Hcl (Bystolic) 20 Mg Tablet, 20 MG PO DAILY, (Reported) Entered as Reported by: LUIS A VICETNE on 01/12/184 Last Action: Converted on 03/17/201214 by ALLYSSA LIN MD [place]-3 Acid Ethyl Esters (Lovaza) 1 Gm Capsule, 2 CAP PO BID for Hypertriglyceridemia for 90 Days, #360 Ref 3 Prescribed by: JOSE APPIAH MD on 01/19/20 1346 Last Action: Converted on 03/17/201214 by ALLYSSA LIN MD Scheduled PRN Calcium Carbonate (Calcium) 500 Mg Tab.chew, 500 MG PO PRN Q4HRS PRN for INDIGESTION, (Reported) Entered as Reported by: LUIS A VICENTE on 01/12/18343 Last Action: Converted on 03/17/201214 by ALLYSSA LIN MD Gabapentin (Gabapentin) 300 Mg Capsule, 2 CAP PO PRN BID PRN for PAIN, (Reported) Entered as Reported by: DAVID SHERIFF on 01/18/20 1469 Last Action: Continued on 03/17/201214 by ALLYSSA LIN MD Hydrocodone Bit/Acetaminophen (Hydrocodone-Apap 7.5-325 ) 1 Tab Tablet, 1 TAB PO PRN Q6HRS PRN for MODERATE-SEVERE PAIN, #32 Prescribed by: SHREE HASKINS on 03/22/20 1115 Ondansetron Hcl (Zofran) 4 Mg Tablet, 1 TAB PO Q8HRS PRN for NAUSEA, #15 Prescribed by: SHREE HASKINS on 03/22/20 1113 Miscellaneous Medications [hemp botanicals] , (Reported) Entered as Reported by: LUIS A VICENTE on 01/12/18343 Last Action: HELD on 03/17/201214 by ALLYSSA LIN MD Discontinued Medications Tramadol Hcl (Tramadol Hcl) 50 Mg Tablet, 50 MG PO PRN BID PRN for PAIN, Ref 0 (Reported) Entered as Reported by: LUIS A VICENTE on 01/12/18343 Last Action: HELD on 03/17/201214 by ALLYSSA LIN MD Patient Instructions Patient Instructions > 30 min face to face Justicifation of Admission Dx: Justifications for Admission: Justification of Admission Dx: Yes SHREE HASKINS MD Mar 22, 2020 13:39
== END 2020-03-22 13:14 | disposition home or self-care (01) | DRG 439 ==
LOC: ER 19:34 → 4 NORTH 23:56 → 5 NORTH 03-20 13:34
PROVIDERS: ADMIT Family Medicine; ATTEND Family Medicine
DX: K85.20 Alcohol induced acute pancreatitis without necrosis or infection (principal); Z68.41 Body mass index [BMI] 40.0-44.9, adult; K86.1 Other chronic pancreatitis; F41.9 Anxiety disorder, unspecified; E10.9 Type 1 diabetes mellitus without complications; E66.01 Morbid (severe) obesity due to excess calories; E78.1 Pure hyperglyceridemia; E78.5 Hyperlipidemia, unspecified; F10.10 Alcohol abuse, uncomplicated; F17.210 Nicotine dependence, cigarettes, uncomplicated; G47.33 Obstructive sleep apnea (adult) (pediatric); I11.9 Hypertensive heart disease without heart failure; Z96.653 Presence of artificial knee joint, bilateral; K21.9 Gastro-esophageal reflux disease without esophagitis; K76.0 Fatty (change of) liver, not elsewhere classified; K80.20 Calculus of gallbladder without cholecystitis without obstruction; Z79.4 Long term (current) use of insulin
CPT/HCPCS: 36415; 71045; 74177; 76705; 80053; 82962; 83690; 83735; 84478; 84484; 85007; 85025; 85027; 87040; 93005; 94760; C8929; C9113; J1170; J1650; J1815; J2060; J2270; J2405; J3411; J3490; J7030; Q9956; Q9967; G0378

== ENCOUNTER 2020-03-29 14:38 | Emergency (ER) | payer BC ==
[~2020-03-29] VITALS: Ht 188 cm; Wt 150.0 kg
[~2020-03-29 14:38] MED LIST changes: +HYDR-2765 PO; +ONDA4TAB7 PO
[2020-03-29] MEDS ORDERED: MORPHINE SULFATE 4 MG/ML VIAL. IV/SQ PRN (15:15)
[2020-03-29] MEDS ORDERED: FAMOTIDINE 20 MG/2 ML VIAL IVP ONE (15:15)
[2020-03-29] MEDS ORDERED: IV NORMAL SALINE 1000ML BAG 1,000 ML IV SCH (15:15)
[2020-03-29] MEDS ORDERED: METOCLOPRAMIDE HCL 10 MG/2 ML VIAL. IVP ONE (15:15)
[2020-03-29 15:29] LABS: BILIRUBIN,URINE NEGATIVE (NEG); CLARITY,URINE CLEAR; COLOR,URINE YELLOW; NITRITE,URINE NEGATIVE (NEG); PROTEIN,URINE NEGATIVE (NEG-TRACE); UROBILINOGEN,URINE 0.2 mg/dL (0.2 mg/dL)
[2020-03-29 15:33] LABS: BACTERIA,URINE 0 /HPF (0-FEW); RBC,URINE 0 /HPF (0-2); WBC,URINE 0 /HPF (0-4)
[2020-03-29 15:37] LABS: BARBITURATES NEG (NEG); BENZODIAZEPINES NEG (NEG); CANNABINOIDS NEG (NEG); COCAINE NEG (NEG); METHADONE NEG (NEG); OPIATES NEG (NEG); PHENCYCLIDINE NEG (NEG)
[2020-03-29 15:41] LABS: AMPHETAMINE/METHAMPHETAMINE NEG (NEG)
--- NOTE | 2020-03-29 15:52 | RAD ---
Exam: Ultrasound abdomen limited Indication: Right upper quadrant pain Technique: Real-time grayscale and color Doppler images of the right upper quadrant were obtained by the department geothermal powerplant mechanic helper. Comparisons: 03/21/2020 FINDINGS: Liver contour is normal. Increased echogenicity of the liver likely related to hepatic steatosis. Hep atopedal flow noted in the portal vein. Gallbladder is distended and appears thin-walled. No pericholecystic fluid or wall thickening. No gal lstones. Right kidney measures 15.7 cm in length. No hydronephrosis. Aorta and IVC are not well seen. IMPRESSION: 1. Diffuse hepatic steatosis. 2. Normal sonographic appearance the liver. 3. No right-sided hydronephrosis. Electronically signed by: Elma Lares MD (03/29/2020 3:49 PM) [facility]
--- NOTE | 2020-03-29 16:16 | PHYS DOC ---
Past Medical History Past Medical History: Anxiety, Diabetes-Type I, Gallstones, GERD, Hypertension, Pancreatitis (BYRON RAINEY DO) Past Surgical History: Knee Replacement, Other Additional Past Surgical Histo: BILATERAL KNEE REPLACEMENT, NECK SURGERY, WISDOM TEETH EXTRACTED. (BYRON RAINEY DO) Smoking Status: Former Smoker Alcohol Use: Sober Drug Use: None (BYRON RAINEY DO) General Adult EDM: Chief Complaint: ABDOMINAL PAIN HPI: HPI: 44 yo M PMH alcohol abuse, morbid obesity, hyperlipidemia, pancreatitis, GERD, hepatic steatosis and history of intractable abdominal pain, nausea and vomiting, presents to the ED with complaints of LUQ abdominal pain, nonbloody nonbilious vomiting," ever since I was discharged." Patient states he no longer drinks alcohol. His co plan was to follow-up with Dr. Fernandez, outpatient surgeon who he was unable to get a hold of today. Was sent in by his primary care physician at [facility]. EMR reviewed-pt admitted in 12/2019 and 03/2020 (dc'ed 1 week ago) for pancreatitis 2/2 etoh vs HLD. (BYRON RAINEY DO) Review of Systems: Review of Systems: Constitutional: Denies fever or chills. [] Eyes: Denies change in visual acuity. [] HENT: Denies nasal congestion or sore throat. [] Respiratory: Denies cough or shortness of breath. [] Cardiovascular: Denies chest pain or edema. [] GI: Denies abdominal pain, nausea, vomiting, bloody stools or diarrhea. [] : Denies dysuria. [] Musculoskeletal: Denies back pain or joint pain. [] Integument: Denies rash. [] Neurologic: Denies headache, focal weakness or sensory changes. [] Endocrine: Denies polyuria or polydipsia. [] Lymphatic: Denies swollen glands. [] Psychiatric: Denies depression or anxiety. [] (BYRON RAINEY DO) Heart Score: Risk Factors: Risk Factors: DM, Current or recent (<one month) smoker, HTN, HLP, family history of CAD, obesity. Risk Scores: Score 0 - 3: 2.5% MACE over next 6 weeks - Discharge Home Score 4 - 6: 20.3% MACE over next 6 weeks - Admit for Clinical Observation Score 7 - 10: 72.7% MACE over next 6 weeks - Early Invasive Strategies ([facility] Current Medications: Current Medications Medications (Trade) Dose Ordered Sig/Yamile Start Time Stop Time Status Last Admin Dose Admin Famotidine (Pepcid Vial) 20 mg 1X ONCE 03/29/20 15:15 03/29/20 15:16 DC Metoclopramide HCl (Reglan Vial) 10 mg 1X ONCE 03/29/20 15:15 03/29/20 15:16 DC Morphine Sulfate (Morphine Sulfate) 4 mg PRN Q15MIN PRN 03/29/20 15:15 03/30/20 15:14 Sodium Chloride 1,000 ml @ 1,000 mls/hr Q1H 03/29/20 15:15 03/29/20 16:14 DC ([facility]) Allergies: Allergies: Allergies Coded Allergies Type Severity Reaction Last Updated Verified No Known Drug Allergies 09/21/15 No ([facility] ) Physical Exam: PE: Constitutional: Well developed, well nourished, no acute distress, non-toxic appearance. [] HENT: Normocephalic, atraumatic, bilateral external ears normal, oropharynx moist, no oral exudates, nose normal. [] Eyes: PERRLA, EOMI, conjunctiva normal, no discharge. [] Neck: Normal range of motion, no tenderness, supple, no stridor. [] Cardiovascular:Heart rate regular rhythm, no murmur [] Lungs & Thorax: Bilateral breath sounds clear to auscultation [] Abdomen: Bowel sounds normal, soft, no tenderness, no masses, no pulsatile masses. [] Skin: Warm, dry, no erythema, no rash. [] Back: No tenderness, no CVA tenderness. [] Extremities: No tenderness, no cyanosis, no clubbing, ROM intact, no edema. [] Neurologic: Alert and oriented X 3, normal motor function, normal sensory function, no focal deficits noted. [] Psychologic: Affect normal, judgement normal, mood normal. [] ([facility]) Current Patient Data: Labs: Laboratory Tests Test 03/29/20 14:45 Urine Collection Type Unknown Urine Color Yellow Urine Clarity Clear Urine pH 6.0 (<5.0-8.0) Urine Specific [place] >=1.030 (1.000-1.030) Urine Protein Negative mg/dL (NEG-TRACE) Urine Glucose (UA) >=1000 mg/dL (NEG) Urine Ketones (Stick) Negative mg/dL (NEG) Urine Blood Negative (NEG) Urine Nitrite Negative (NEG) Urine Bilirubin Negative (NEG) Urine Urobilinogen Dipstick 0.2 mg/dL (0.2 mg/dL) Urine Leukocyte Esterase Negative (NEG) Urine RBC 0 /HPF (0-2) Urine WBC 0 /HPF (0-4) Urine Bacteria 0 /HPF (0-FEW) Urine Mucus Slight /LPF Urine Opiates Screen Neg (NEG) Urine Methadone Screen Neg (NEG) Urine Barbiturates Neg (NEG) Urine Phencyclidine Screen Neg (NEG) Urine Amphetamine/Methamphetamine Neg (NEG) Urine Benzodiazepines Screen Neg (NEG) Urine Cocaine Screen Neg (NEG) Urine Cannabinoids Screen Neg (NEG) Urine Ethyl Alcohol Neg (NEG) Vital Signs: Vital Signs Date Time Temp Pulse Resp B/P (MAP) Pulse Ox O2 Delivery O2 Flow Rate FiO2 03/29/20 14:42 98.9 90 20 135/65 (88) 97 Room Air 98.9 (BYRON RAINEY DO) EKG: EKG: Flexion 84 bpm, left axis deviation, QTC 464, no T wave inversions, no ST depressions or ST depressions (BYRON RAINEY DO) Radiology/Procedures: Radiology/Procedures: IMAGING REPORT Signed PATIENT: JOSHUA VÁSQUEZ ACCOUNT: [id number] : 1975 LOCATION: ER AGE: 44 SEX: M EXAM STATUS: REG ER ORD. PHYSICIAN: BYRON RAINEY DO REASON: ruq us PROCEDURE: ABDOMEN LTD Exam: Ultrasound abdomen limited Indication: Right upper quadrant pain Technique: Real-time grayscale and color Doppler images of the right upper quadrant were obtained by the department fry cook. Comparisons: 03/21/2020 FINDINGS: Liver contour is normal. Increased echogenicity of the liver likely related to hepatic steatosis. Hepatopedal flow noted in the portal vein. Gallbladder is distended and appears thin-walled. No pericholecystic fluid or wall thickening. No gallstones. Right kidney measures 15.7 cm in length. No hydronephrosis. Aorta and IVC are not well seen. IMPRESSION: 1. Diffuse hepatic steatosis. 2. Normal sonographic appearance the liver. 3. No right-sided hydronephrosis. Electronically signed by: Elma Jc MD (03/29/2020 3:49 PM) [facility] DICTATED and SIGNED BY: ELMA JC MD DATE: 03/29/20 [id number] (BYORN RAINEY DO) Course & Med Decision Making: Course & Med Decision Making Pertinent Labs and Imaging studies reviewed. (See chart for details) [] (BYRON RAINEY DO) Course & Med Decision Making 18:21 -assumed care of this patient at 1800. Clearly this is a 43-year-old male suffering from chronic alcoholic and hyper triglyceride pancreatitis return to the emergency department for ongoing epigastric abdominal pain. Labs obtained which do not demonstrate any significant rise in his lipase and appears to be at his baseline level. In addition ultrasound and CT scan were obtained which demonstrate improvement of the patient's pancreatitis and no new changes. We were able to discuss the case with Dr. Fernandez who is the patient's outpatient surgeon who does recommend that in this situation the patient be safely discharged home with instructions to follow-up. Patient exam unremarkable. Patient appears to be improved. At this time feel the patient be safely discharged (HONORIO VALDEZ MD) Dragon Disclaimer: Ze Disclaimer: This electronic medical record was generated, in whole or in part, using a voice recognition dictation system. (BYRON RAINEY DO) Departure Departure Impression: Primary Impression: Chronic pancreatitis Disposition: 01 DC HOME SELF CARE/HOMELESS Condition: GOOD Referrals: GENARO PHILIP (PCP) Patient Instructions: Acute Pancreatitis Additional Instructions: Fever present emergency department. You were seen here for your abdominal pain. While in the emergency department blood work was obtained which demonstrates that you still have some ongoing pancreatitis but appears to be unchanged from your prior visit. In addition an ultrasound and CT scan did not show any new problems. You are likely suffering from chronic pancreatitis and need to be followed by primary care physician and make sure that you follow-up with your surgical appointment. Please return the emergency department if you have any sudden worsening of your symptoms, back pain or fever greater than 101F BYRON RAINEY DO Mar 29, 2020 16:15 HONORIO VALDEZ MD Mar 29, 2020 18:24
[2020-03-29 16:27] LABS: BASO # 0.2 x10^3/uL (0.0-0.2); BASO % 1 % (0-3); EOS # 0.3 x10^3/uL (0.0-0.7); EOS % 2 % (0-3); HEMATOCRIT 39.5 % (39.0-53.0); HEMOGLOBIN 12.9 g/dL (13.0-17.5); LYMPH # 2.4 x10^3/uL (1.0-4.8); LYMPH % 21 % (24-48); MEAN CORPUSCULAR HEMOGLOBIN 29 pg (25-35); MEAN CORPUSCULAR HGB CONC 33 g/dL (31-37); MEAN CORPUSCULAR VOLUME 90 fL (79-100); MONO # 0.5 x10^3/uL (0.0-1.1); MONO % 5 % (0-9); NEUT % 71 % (31-73); PLATELET COUNT 458 x10^3/uL (140-400); RED CELL DISTRIBUTION WIDTH 17.8 % (11.5-14.5); WHITE BLOOD COUNT 11.3 x10^3/uL (4.0-11.0)
[2020-03-29 16:38] LABS: PROTHROMBIN TIME PATIENT 13.2 SEC (11.7-14.0)
[2020-03-29 16:50] LABS: CALCIUM 9.3 mg/dL (8.5-10.1); CREATININE 0.9 mg/dL (0.7-1.3); GFR 91.3; POTASSIUM 4.1 mmol/L (3.5-5.1)
[2020-03-29 16:58] LABS: ALBUMIN 3.2 g/dL (3.4-5.0); DIRECT BILIRUBIN 0.1 mg/dL (0.0-0.2); MAGNESIUM 1.8 mg/dL (1.8-2.4); TOTAL BILIRUBIN 0.2 mg/dL (0.2-1.0); TOTAL PROTEIN 7.5 g/dL (6.4-8.2)
[2020-03-29 17:28] VITALS: BP 115/71
[2020-03-29] MEDS ORDERED: IOHEXOL 300 MG/ML 100ML VIAL. IV ONE (17:45)
--- NOTE | 2020-03-29 18:11 | RAD ---
Examination: CT of the abdomen pelvis with IV contrast HISTORY: History of left upper quadrant. COMPARISON: 05/22/2019 TECHNIQUE: Axial CT images of the abdomen is performed with IV contrast. Coronal and sagittal reforma ts are performed Exposure: One or more of the following individualized dose reduction techniques were utilized for thi s examination: 1. Automated exposure control 2. Adjustment of the mA and/or kV according to patient size 3. Use of iterative reconstruction technique FINDINGS: The bibasilar lungs are clear. No evidence of free air identified in the abdomen The evaluation of the solid organs is limited due to lack of IV contrast. The evaluation of bowel is limited due to lack of oral contrast. Mild hepatomegaly. The spleen, adrenals grossly appears unremar kable. The gallbladder is mildly distended. The stomach is mildly distended. There is moderate focal inflammatory fat stranding identified about the body and tail of the pancreas likely known pancreatit is slightly improved since prior exam with hypodensity within the distal pancreas probably pancreatic necrosis or edematous pancreas. The small bowel is nondilated. Feces and gas noted in the colon. Uri nary bladder is mildly distended. The bilateral kidneys enhance symmetrically. Mild degenerative kaye ges thoracolumbar spine. IMPRESSION: Moderate focal inflammatory fat stranding identified about the body and tail of the pancreas likely k nown pancreatitis slightly improved since prior exam with hypodensity within the distal pancreas prob ably pancreatic necrosis or edematous pancreas similar to prior exam. Electronically signed by: Shyam Keating MD (03/29/2020 6:09 PM) [id number]
[2020-03-29] MEDS ORDERED: ONDA4TAB7 PO (18:56)
--- NOTE | 2020-03-29 22:11 | EKG ---
[facility] [address] [place] [address] Test Date: 2020-03-29 Test Time: 14:59:17 Pat Name: JOSHUA VÁSQUEZ Department: Room: Gender: M Director Stage: : 1975 Requested By: BYRON RAINEY Order Number: [id number] Reading MD: Measurements Intervals [place] Rate: 84 P: 0 WV: 176 QRS: -59 QRSD: 110 T: 48 QT: 390 QTc: 464 Interpretive Statements SINUS RHYTHM ABNORMAL LEFT AXIS DEVIATION R-S TRANSITION ZONE IN V LEADS DISPLACED TO THE RIGHT LEFT ANTERIOR FASCICULAR BLOCK ABNORMAL ECG RI6.01 No previous ECG available for comparison
== END 2020-03-29 19:07 | disposition home or self-care (01) ==
LOC: ER 14:38
DX: K86.1 Other chronic pancreatitis (principal); E10.9 Type 1 diabetes mellitus without complications; I10 Essential (primary) hypertension; K21.9 Gastro-esophageal reflux disease without esophagitis; E66.01 Morbid (severe) obesity due to excess calories; Z68.41 Body mass index [BMI] 40.0-44.9, adult; Z87.891 Personal history of nicotine dependence
CPT/HCPCS: 36415; 74177; 76705; 80048; 80076; 80307; 81001; 82550; 83690; 83735; 85025; 85610; 85730; 93005; 96361; 96374; 96375; 99285; J2270; J2765; J3490; J7030; Q9967

== ENCOUNTER → 2020-05-17 | Outpatient (CLI) | payer BC ==
--- NOTE | 2020-05-17 08:35 | RAD ---
CLINICAL HISTORY: Reason: PANCREATITIS / Spl. Instructions: / History: COMPARISON: None available. TECHNIQUE: Ultrasound of the upper abdomen was performed. FINDINGS: The liver measures 22.5 cm in length in the right mid clavicular line. Increased hepatic echogenicit y relative to the right kidney consistent with hepatic steatosis.. There are no focal liver lesions. Flow seen within the portal veins. The gallbladder is normal in appearance without evidence for cholelithiasis. There is no wall thicke curt or pericholecystic fluid. There is no pain with direct transducer pressure over the gallbladder . The common bile duct measures 0.5 cm. The spleen is mildly enlarged in size, measuring 12.7 cm. The pancreas is essentially obscured by overlying bowel gas. The right kidney measures 15.4 cm in bipolar length. The left kidney measures 14.5 cm in bipolar dayan th. Normal cortical echogenicity and thickness. No hydronephrosis. No focal renal lesion. Visualized portions of the abdominal aorta and inferior vena cava are unremarkable although the major ity is obscured by overlying bowel gas.. There is no free fluid in the upper abdomen. IMPRESSION: 1. Hepatosplenomegaly. Increased echogenicity of the liver likely fatty liver. 2. Gallbladder is normal. 3. Pancreas is obscured by overlying bowel gas. Electronically signed by: Lencho Cortez MD (05/17/2020 8:32 AM) [facility]7
== END ==
LOC: US 07:04
PROVIDERS: ATTEND Surgery
DX: K85.90 Acute pancreatitis without necrosis or infection, unspecified (principal); R16.2 Hepatomegaly with splenomegaly, not elsewhere classified
CPT/HCPCS: 76700

== ENCOUNTER → 2020-11-14 | Outpatient (CLI) | payer BC ==
[2020-11-09 11:00] VITALS: BP 138/104
[~2020-11-14] MED LIST changes: +FURO-69 PO; +Folic Acid PO; +IOHEXOL 240 MG/ML 50ML VIAL. PO ONE; +IOHEXOL 300 MG/ML 100ML VIAL. IV ONE; +OLAN2.5T11 PO; +THIA100T22 PO; +TRAM100T2 PO
--- NOTE | 2020-11-14 15:30 | KCIC ---
EXAM: CT Abdomen with IV contrast CLINICAL HISTORY: PANCREATIC PSEUDOCYST COMPARISON: 08/15/2020: 20/12/2019 TECHNIQUE: Helical CT of the abdomen was performed following the administration of intravenous contra st. Axial, coronal and sagittal reformatted images were generated. PQRS compliance statement - One or more of the following individualized dose reduction techniques wer e utilized for this study: 1. Automated exposure control 2. Adjustment of the mA and/or kV according to patient size 3. Use of iterative reconstruction technique FINDINGS: Lower chest: Calcified granuloma left lower lobe. Abdomen : No focal liver lesion. Spleen, adrenal glands and pancreas are grossly unremarkable. Previously seen peripancreatic collection is not seen on this examination. No peripancreatic infiltration. Symmetric nephrograms. No focal renal lesion. No hydronephrosis. Moderate colonic stool content. No a bnormal small bowel dilatation. No abdominal ascites or lymphadenopathy. Bones: Mild wedging deformity of several lower thoracic vertebral bodies. IMPRESSION: Previously seen peripancreatic cystic structure is not definitively seen on this examination. Electronically signed by: Lencho Cortez MD (11/14/2020 3:28 PM) [id number]
== END ==
LOC: KCIC CT 08:30
PROVIDERS: ATTEND Internal Medicine Gastroenterology
DX: K86.3 Pseudocyst of pancreas (principal); J84.10 Pulmonary fibrosis, unspecified
CPT/HCPCS: 74160; Q9966; Q9967

== ENCOUNTER 2020-12-31 09:26 | Emergency (ER) | payer BC ==
[~2020-12-31] VITALS: Ht 188 cm; Wt 165.4 kg
[~2020-12-31 09:26] MED LIST changes: -IOHEXOL 240 MG/ML 50ML VIAL. PO ONE; -IOHEXOL 300 MG/ML 100ML VIAL. IV ONE
[2020-12-31 09:30] VITALS: BP 162/89
[2020-12-31] MEDS ORDERED: PHENYLEPHRINE 0.5% NASAL SPRAY 15ML BOTTLE. NS PRN (10:30)
[2020-12-31] MEDS ORDERED: IV NORMAL SALINE 1000ML BAG 1,000 ML IV ONE (11:00)
--- NOTE | 2020-12-31 11:01 | PHYS DOC ---
Past Medical History Past Medical History: Diabetes-Type II, GERD, High Cholesterol, Hypertension, Other Additional Past Medical Histor: Gout Past Surgical History: Other Additional Past Surgical Histo: bilat knees, neck, low back, wisdom teeth, carpal tunnel. Smoking Status: Never Smoker Alcohol Use: None Drug Use: None General Adult EDM: Chief Complaint: NOSEBLEED HPI: HPI: Patient is a 45 year old male presents emergency department concerning nosebleeds since 3 AM. Patient reports he woke up noticing blood all over his pillow. Has been bleeding consistently ever since. Patient reports he has been placing pressure on his nose. Has tried Afrin nasal spray x5 sprays without results. 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 Megan Sahu, reports having his nasal tubes taken out this past Saturday. Has had no problems since. Patient reports history of high blood pressure, type 2 diabetes, hypercholesterol. Denies nasal pain. Patient denies other physical complaints or physical concerns. Review of Systems: Review of Systems: 14 body systems of review of systems have been reviewed. See HPI for pertinent positives and negative responses, otherwise all other systems are negative, nonpertinent or noncontributory. Constitutional: Negative except as outlined in HPI above. Skin: Negative except as outlined in HPI above. Eyes: Negative except as outlined in HPI above. HENT: Negative except as outlined in HPI above. Respiratory: Negative except as outlined in HPI above. Cardiovascular: Negative except as outlined in HPI above. GI: Negative except as outlined in HPI above. : Negative except as outlined in HPI above. Musculoskeletal: Negative except as outlined in HPI above. Integument: Negative except as outlined in HPI above. Neurologic: Negative except as outlined in HPI above. Endocrine: Negative except as outlined in HPI above. Lymphatic: Negative except as outlined in HPI above. Psychiatric: Negative except as outlined in HPI above. Heart Score: C/O Chest Pain: No Risk Factors: Risk Factors: DM, Current or recent (<one month) smoker, HTN, HLP, family history of CAD, obesity. Risk Scores: Score 0 - 3: 2.5% MACE over next 6 weeks - Discharge Home Score 4 - 6: 20.3% MACE over next 6 weeks - Admit for Clinical Observation Score 7 - 10: 72.7% MACE over next 6 weeks - Early Invasive Strategies Current Medications: Current Medications Medications (Trade) Dose Ordered Sig/Yamile Start Time Stop Time Status Last Admin Dose Admin Phenylephrine HCl (Brandon-Synephrine 0.5% Nasal) 2 spray PRN Q4HRS PRN 12/31/20 10:30 12/31/20 10:44 2 SPRAY Allergies: Allergies: Allergies Coded Allergies Type Severity Reaction Last Updated Verified No Known Drug Allergies 09/21/15 No Physical Exam: PE: Constitutional: Well developed, well nourished, no acute distress, non-toxic appearance. 45-year-old male appears uncomfortable, spitting up bloody sputum into trash can during exam. HENT: Normocephalic, atraumatic. Patient bleeding from bilateral naris, postnasal bright red blood oozing, no uvular swelling, no peritonsillar swelling, no laryngeal swelling, patient speaking in normal voice tones. Eyes: Conjunctiva normal, no discharge. Neck: Normal range of motion, no stridor. Cardiovascular: No cyanosis appreciated, distal cap refill less than 2 seconds. Lungs & Thorax: Patient is in no respiratory distress, no audible adventitious lung sounds appreciated. Abdomen: Nontender, no abnormalities noted. Skin: Warm, dry, no erythema, no rash. Back: No tenderness, no deformities. Extremities: No tenderness, no cyanosis, no clubbing, ROM intact, no edema. Neurologic: Alert and oriented X 3, normal motor function, normal sensory function, no focal deficits noted. Psychologic: Affect normal, judgement normal, mood normal. Current Patient Data: Labs: Laboratory Tests Test 12/31/20 11:20 12/31/20 12:45 White Blood Count 18.6 x10^3/uL Red Blood Count 4.84 x10^6/uL Hemoglobin 14.3 g/dL Hematocrit 43.4 % Mean Corpuscular Volume 90 fL Mean Corpuscular Hemoglobin 30 pg Mean Corpuscular Hemoglobin Concent 33 g/dL Red Cell Distribution Width 15.8 % Platelet Count 322 x10^3/uL Neutrophils (%) (Auto) 71 % Lymphocytes (%) (Auto) 21 % Monocytes (%) (Auto) 5 % Eosinophils (%) (Auto) 2 % Basophils (%) (Auto) 1 % Neutrophils # (Auto) 13.2 x10^3/uL Lymphocytes # (Auto) 3.9 x10^3/uL Monocytes # (Auto) 0.9 x10^3/uL Eosinophils # (Auto) 0.3 x10^3/uL Basophils # (Auto) 0.3 x10^3/uL Segmented Neutrophils % 58 % Band Neutrophils % 2 % Lymphocytes % 30 % Monocytes % 9 % Eosinophils % 1 % Platelet Estimate Adequate Prothrombin Time 11.1 SEC Prothromb Time International Ratio 0.8 Sodium Level 137 mmol/L Potassium Level 4.1 mmol/L Chloride Level 98 mmol/L Carbon Dioxide Level 29 mmol/L Anion Gap 10 Blood Urea Nitrogen 29 mg/dL Creatinine 1.2 mg/dL Estimated GFR (Cockcroft-Gault) 65.2 BUN/Creatinine Ratio 24 Glucose Level 128 mg/dL Calcium Level 9.0 mg/dL Total Bilirubin 0.3 mg/dL Aspartate Amino Transf (AST/SGOT) 22 U/L Alanine Aminotransferase (ALT/SGPT) 58 U/L Alkaline Phosphatase 94 U/L Total Protein 7.2 g/dL Albumin 3.8 g/dL Albumin/Globulin Ratio 1.1 Current Medications Medications (Trade) Dose Ordered Sig/Yamile Route PRN Reason Start Time Stop Time Status Last Admin Dose Admin Phenylephrine HCl (Brandon-Synephrine 0.5% Nasal) 2 spray PRN Q4HRS PRN NS CONGESTION 12/31/20 10:30 12/31/20 13:44 DC 12/31/20 10:44 Sodium Chloride 1,000 ml @ 1,000 mls/hr 1X ONCE IV 12/31/20 11:00 12/31/20 11:59 DC 12/31/20 12:10 Ondansetron HCl (Zofran Odt) 4 mg 1X ONCE PO 12/31/20 11:45 12/31/20 11:55 DC Ondansetron HCl (Zofran) 4 mg 1X ONCE IVP 12/31/20 12:15 12/31/20 12:16 DC 12/31/20 12:21 Morphine Sulfate (Morphine Sulfate) 4 mg 1X ONCE IVP 12/31/20 12:15 12/31/20 12:16 DC 12/31/20 12:20 Vital Signs: Vital Signs Date Time Temp Pulse Resp B/P (MAP) Pulse Ox O2 Delivery O2 Flow Rate FiO2 12/31/20 09:30 98.1 81 24 162/89 (113) 96 Room Air 98.1 EKG: EKG: [] Radiology/Procedures: Radiology/Procedures: [] Course & Med Decision Making: Course & Med Decision Making Pertinent Labs and Imaging studies reviewed. (See chart for details) 45-year-old male, vital signs reviewed, presents emergency department concerning for nosebleed since 3 AM. Physical examination unremarkable except for nosebleed, during nasal examination active nasal bleeding, appears to be posterior on the left. With patient's recent surgery, will call patient's ENT specialist Dr. Sahu for consult prior to treatment consideration. Paged out to ENT specialist Dr. Sahu, Dr. Sahu's partner Dr. Massey return call, discussed case, Dr. Massey recommends Rhino Rocket insertion. Dr.: Sahu returned call, discussed patient case with ENT specialist Dr. Sahu who recommended Rhino Rocket pressure device, will pretreat with phenylephrine nasal solution prior to Rhino Rocket insertion. Patient is currently complaining of dizziness, reporting that he believes he has lost lots of blood. Will insert saline lock, draw CBC, PT/INR. Valuate for acute blood loss. 1 L normal saline. Vital signs remained stable, the patient is not tachycardic Placed phenylephrine and soaked cotton swabs to bilateral naris, direct pressure on nares, will evaluate after period of time. After a 30-minute period of time, reevaluated patient, patient reports bleeding seems to be letting up, will continue to monitor for a period of time considering her Rhino Rocket placement. Patient is amenable to ED planning. After period of time, patient states he sees no more bleeding, reexamination of oral care notes no postnasal bleeding or drainage. Patient appears to be feeling much better. Discussed strict follow-up with Dr. Sahu this coming Saturday, patient is amenable to planning, will leave packing in place for now, discussed strict instructions to moisten packing with saline several times a day until examined by Dr. Sahu, strict return to ER precautions or concerns. Patient is amenable to ED discharge planning. Discussed with the patient all findings and diagnostic testing as well as the need to follow-up with their primary care provider for further evaluation and treatment or return to the ED if any new or worsening symptoms. Strict return precautions were also discussed at length, the patient voiced understanding and agreement with the discharge planning. The patient was nontoxic in appearance, in no apparent distress, and hemodynamically stable at the time of disposition. Isaelon Disclaimer: Ze Disclaimer: This electronic medical record was generated, in whole or in part, using a voice recognition dictation system. Departure Departure Impression: Primary Impression: Epistaxis Disposition: HOME / SELF CARE / HOMELESS Condition: GOOD Referrals: GENARO PHILIP (PCP) Patient Instructions: Nosebleed Additional Instructions: You were seen today in the emergency department for a nosebleed. You had recent nasal surgery, I did speak with Dr. Megan Sahu prior to starting treatment today in the ER. Your nose was packed with gauze soaked in phenylephrine, after a period of time your bleeding did resolve. Please keep packing in place until seen by Dr. Sahu, please keep moist several times a day with saline as we discussed. Because of your recent surgery and the spontaneous bleeding, labs were drawn, you are not anemic, however you do have an elevated white blood cell count, this can be elevated from surgery, however I will start you on an antibiotic to prevent any infectious process. Please take as directed. Please let Dr. Sahu know you are on antibiotics started today when you see her on Saturday. Please return to the emergency department for worsening symptoms or other concerns. Thank you for visiting our Emergency Department. It was a pleasure taking care of you today in the emergency department and we appreciate you trusting us with your care. If any additional problems come up don't hesitate to return to visit us. Please follow up with your primary care provider so they can plan additional care if needed and know about the problem that you had. If symptoms worsen come back to the Emergency Department. Any concerning symptoms that start such as chest pain, shortness of air, weakness or numbness on one side of the body, running high fevers or any other concerning symptoms return to the ER. Scripts Cephalexin (CEPHALEXIN) 500 Mg Tablet 1 TAB PO QID for nose bleed, #40 TAB 0 Refills Prov: PEPPERMaria IsabelJOSHUA APRN 12/31/20 JOSHUA HO APRN Dec 31, 2020 11:01
[2020-12-31 11:36] LABS: BASO # 0.3 x10^3/uL (0.0-0.2); BASO % 1 % (0-3); EOS # 0.3 x10^3/uL (0.0-0.7); EOS % 2 % (0-3); HEMATOCRIT 43.4 % (39.0-53.0); HEMOGLOBIN 14.3 g/dL (13.0-17.5); LYMPH # 3.9 x10^3/uL (1.0-4.8); LYMPH % 21 % (24-48); MEAN CORPUSCULAR HEMOGLOBIN 30 pg (25-35); MEAN CORPUSCULAR HGB CONC 33 g/dL (31-37); MEAN CORPUSCULAR VOLUME 90 fL (79-100); MONO # 0.9 x10^3/uL (0.0-1.1); MONO % 5 % (0-9); NEUT # 13.2 x10^3/uL (1.8-7.7); NEUT % 71 % (31-73); PLATELET COUNT 322 x10^3/uL (140-400); RED BLOOD COUNT 4.84 x10^6/uL (4.30-5.70); RED CELL DISTRIBUTION WIDTH 15.8 % (11.5-14.5); WHITE BLOOD COUNT 18.6 x10^3/uL (4.0-11.0)
[2020-12-31 11:45] LABS: PROTHROMBIN TIME PATIENT 11.1 SEC (11.7-14.0)
[2020-12-31] MEDS ORDERED: ONDANSETRON ODT 4 MG TAB.RAPDIS. PO ONE (11:45)
[2020-12-31] MEDS ORDERED: ONDANSETRON PF 4 MG/2 ML VIAL. IVP ONE (12:15)
[2020-12-31] MEDS ORDERED: MORPHINE SULFATE 4 MG/ML INJ. IVP ONE (12:15)
[2020-12-31 12:59] LABS: CREATININE 1.2 mg/dL (0.7-1.3); GFR 65.2; POTASSIUM 4.1 mmol/L (3.5-5.1)
[2020-12-31 13:07] LABS: ALBUMIN 3.8 g/dL (3.4-5.0); ALBUMIN/GLOBULIN RATIO 1.1 (1.0-1.7); TOTAL BILIRUBIN 0.3 mg/dL (0.2-1.0); TOTAL PROTEIN 7.2 g/dL (6.4-8.2)
[2020-12-31 13:14] LABS: % BANDS 2 % (0-9); % EOS 1 % (0-5); % LYMPHS 30 % (24-48); % MONOS 9 % (0-10); % SEGS 58 % (35-66); PLT ESTIMATE ADEQUATE (ADEQUATE)
[2020-12-31] MEDS ORDERED: CEPH500T PO (13:29)
== END 2020-12-31 13:40 | disposition home or self-care (01) ==
LOC: ER 09:26
DX: R04.0 Epistaxis (principal); E11.9 Type 2 diabetes mellitus without complications; E78.00 Pure hypercholesterolemia, unspecified; K21.9 Gastro-esophageal reflux disease without esophagitis; I10 Essential (primary) hypertension; M10.9 Gout, unspecified
CPT/HCPCS: 30905; 36415; 80053; 85007; 85025; 85610; 96361; 96374; 96375; 99284; J2270; J2405; J7030

== ENCOUNTER 2021-01-22 14:04 | Emergency (ER) | payer BC ==
[~2021-01-22] VITALS: Ht 188 cm; Wt 169.5 kg
[~2021-01-22 14:04] MED LIST changes: +CEPH500T PO; +TIZA-75 PO; -TIZA4TAB2 PO
--- NOTE | 2021-01-22 15:34 | PHYS DOC ---
Past Medical History Past Medical History: Diabetes-Type II, GERD, High Cholesterol, Hypertension, Other Additional Past Medical Histor: Gout Past Surgical History: Other Additional Past Surgical Histo: bilat knees, neck, low back, wisdom teeth, carpal tunnel. Smoking Status: Never Smoker Alcohol Use: None Drug Use: None General Adult EDM: Chief Complaint: LOWER EXTREMITY EDEMA HPI: HPI: Patient is a 45 year old male presents emergency department complaining of bilateral upper and lower extremity edema for the past 2 days. Patient reports his extremities are painful rating and pain 8 out of 10 on a 1-10 pain scale. Patient denies chest pains, denies shortness of breath, cough, or congestion. Patient reports his doctor prescribed him 20 mg Lasix pills as needed, states he has never taken them before however started taking them yesterday and has taken a total of 10 tablets between yesterday and today, patient reports she has a orthopedic bed at home and has been lying in bed with his feet in the air above the level of his heart for the past day and a half without any relief and swelling or extremity pain. Patient reports he has had a significant increase of urination noting he is peeing clear now. Patient denies dizzy spells, syncopal episodes, recent fever or chills. Patient reports he takes 13 pills at home to include 3 blood pressure medications, insulin, cholesterol medications, gabapentin, Cymbalta for chronic pains, and his Lasix pills, he believes he takes other medications but does not know the name of them. Patient denies other physical complaints or physical concerns Review of Systems: Review of Systems: 14 body systems of review of systems have been reviewed. See HPI for pertinent positives and negative responses, otherwise all other systems are negative, nonpertinent or noncontributory. Constitutional: Negative except as outlined in HPI above. Skin: Negative except as outlined in HPI above. Eyes: Negative except as outlined in HPI above. HENT: Negative except as outlined in HPI above. Respiratory: Negative except as outlined in HPI above. Cardiovascular: Negative except as outlined in HPI above. GI: Negative except as outlined in HPI above. : Negative except as outlined in HPI above. Musculoskeletal: Negative except as outlined in HPI above. Integument: Negative except as outlined in HPI above. Neurologic: Negative except as outlined in HPI above. Endocrine: Negative except as outlined in HPI above. Lymphatic: Negative except as outlined in HPI above. Psychiatric: Negative except as outlined in HPI above. Heart Score: C/O Chest Pain: No Risk Factors: Risk Factors: DM, Current or recent (<one month) smoker, HTN, HLP, family history of CAD, obesity. Risk Scores: Score 0 - 3: 2.5% MACE over next 6 weeks - Discharge Home Score 4 - 6: 20.3% MACE over next 6 weeks - Admit for Clinical Observation Score 7 - 10: 72.7% MACE over next 6 weeks - Early Invasive Strategies Allergies: Allergies: Allergies Coded Allergies Type Severity Reaction Last Updated Verified No Known Drug Allergies 09/21/15 No Physical Exam: PE: Constitutional: Well developed, well nourished, no acute distress, non-toxic appearance. 45-year-old male in no apparent distress. HENT: Normocephalic, atraumatic. Eyes: Conjunctiva normal, no discharge. Neck: Normal range of motion, no stridor. Cardiovascular: No cyanosis appreciated, distal cap refill less than 2 seconds. Heart sounds S1-S2 to auscultation. Lungs & Thorax: Patient is in no respiratory distress, no audible adventitious lung sounds appreciated. Lung sounds clear to auscultate all lung hendrickson. Abdomen: Nontender, no abnormalities noted. Skin: Warm, dry, no erythema, no rash. Back: No tenderness, no deformities. Extremities: No tenderness, no cyanosis, no clubbing, ROM intact, bilateral upper and lower extremity edema, upper extremity nonpitting, lower extremities bilaterally 2+ pitting edema. 2+ radial pulses bilaterally, +2 pedal pulses bilaterally. Distal cap refill less than 2 seconds. Neurologic: Alert and oriented X 3, normal motor function, normal sensory function, no focal deficits noted. Psychologic: Affect normal, judgement normal, mood normal. Current Patient Data: Vital Signs: Vital Signs Date Time Temp Pulse Resp B/P (MAP) Pulse Ox O2 Delivery O2 Flow Rate FiO2 01/22/21 14:54 99.6 92 18 136/75 (95) 98 Room Air 99.6 EKG: EKG: EKG performed at 1534 by ED nursing staff shows a normal sinus rhythm with left axis deviation otherwise no other ectopy, heart rate 85 bpm, ME interval 0.168, QTc interval 0.462, no acute STEMI, no ACS, no acute ischemia appreciated, EKG interpreted by ED attending physician Dr. Edwards. Radiology/Procedures: Radiology/Procedures: PATIENT: JOSHUA VÁSQUEZ ACCOUNT: [id number] : 1975 LOCATION: ER AGE: 45 SEX: M EXAM STATUS: REG ER ORD. 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 HISTORY: Peripheral edema, suspect CHF AP view was taken of the chest. Patient's not taken a deep inspiration. There is linear scarring or atelectasis along the right heart border. There are no other acute infiltrates. There is no effusion. IMPRESSION: 1. Right base linear scarring or atelectasis. 2. No other acute infiltrates. Electronically signed by: Gerber Rodriguez MD (01/22/2021 3:35 PM) [facility] Course & Med Decision Making: Course & Med Decision Making Pertinent Labs and Imaging studies reviewed. (See chart for details) 45-year-old male, vital signs reviewed, resents emerged from concerning bilateral upper and bilateral lower extremity swelling with pain. Patient's physical examination concerning for congestive heart failure, lower likelihood of pulmonary edema as patient is not hypoxic, lung sounds are clear to auscultate, patient is in no respiratory distress, patient's vital signs are within normal limits, the patient is not hypertensive. Will order chest x-ray, CBC, CMP, BNP pro NT, troponin I, CK-MB cardiac isoenzymes, urinalysis assay, orthostatic vital signs, will monitor with an IVP, continuous pulse ox, 5-lead court monitor. Suspect acute electrolyte imbalance related to patient taking approximately 240 mg of Lasix in the past 24 hours without history of Lasix ingestion in the past. Patient's lab work nonconcerning for congestive heart failure, chest x-ray nonconcerning for acute process, patient's proBNP is not elevated, cardiac enzymes are negative, EKG is nonconcerning for acute process, patient does however have a potassium of 3.3, this is most likely related to Lasix intake without potassium supplement. Will give potassium supplement today in the emergency department prior to discharge. Upon reevaluation of the patient, patient reports he is feeling much better. Discussed with patient lab x-ray and EKG findings. Discussed with patient taking Lasix 40 mg a day with potassium supplement, will prescribe potassium supplement. Discussed with patient diagnosis of peripheral edema, strict follow-up with primary care physician this week for reevaluation of home medications and ongoing management of peripheral edema. Discussed strict return to emergency department precautions and concerns. Patient is amenable to ED discharge planning. Discussed with the patient all findings and diagnostic testing as well as the need to follow-up with their primary care provider for further evaluation and treatment or return to the ED if any new or worsening symptoms. Strict return precautions were also discussed at length, the patient voiced understanding and agreement with the discharge planning. The patient was nontoxic in appearance, in no apparent distress, and hemodynamically stable at the time of disposition. Dragon Disclaimer: Dragon Disclaimer: This electronic medical record was generated, in whole or in part, using a voice recognition dictation system. Departure Departure Impression: Primary Impression: Peripheral edema Disposition: HOME / SELF CARE / HOMELESS Condition: GOOD Referrals: GENARO PHILIP (PCP) Patient Instructions: Edema Additional Instructions: You were seen in the emergency department today for swelling to your arms and legs. An extensive cardiac and respiratory work-up was performed in the emergency department, your results are reassuring and that you are not having a heart attack, your EKG and chest x-ray did not show any concerning signs of respiratory failure or congestive heart failure. There were no signs of pneumonia. Your lab work did not show any signs concerning for heart attack. Your EKG was normal. As we discussed, your potassium was on the low side of normal, this is most likely related to your Lasix medications without potassium supplement. As we discussed please take 20 mEq of potassium every day, I am prescribing you a potassium supplement to take with your normal medications, however I am only prescribing you a very short regimen of 7 days worth of medication, as I want your primary care physician to manage your potassium supplement and Lasix dosing at home daily. As with any new medications it is imperative that you discuss this with your primary care physician, please see him this week for reevaluation and discussion of all your medications. This is a must. Please return to the emergency department for worsening symptoms or other concerns. Thank you for visiting our Emergency Department. It was a pleasure taking care of you today in the emergency department and we appreciate you trusting us with your care. If any additional problems come up don't hesitate to return to visit us. Please follow up with your primary care provider so they can plan additional care if needed and know about the problem that you had. If symptoms worsen come back to the Emergency Department. Any concerning symptoms that start such as chest pain, shortness of air, weakness or numbness on one side of the body, running high fevers or any other concerning symptoms return to the ER. EMERGENCY DEPARTMENT GENERAL DISCHARGE INSTRUCTIONS Thank you for coming to [facility] Emergency Department (ED) today and trusting us with you care. We trust that you had a positive experience in our Emergency Department. If you wish to speak to the department management, you may call the Director at [phone]. YOUR FOLLOW UP INSTRUCTIONS ARE FOLLOWS: 1. Do you have a private Doctor? If you do not have a private doctor, please ask for a resource list of physicians or clinics that may be able to assist you with follow up care. 2. The Emergency Physicain has interpreted your x-rays. The X-Ray specialist will also review them. If there is a change in the findings, you will be notified in 48 hours when at all possible. 3. A lab test or culture has been done, your results will be reviewed and you will be notified if you need a change in treatment. ADDITIONAL INSTRUCTIONS AND INFORMATION: 1. Your care today has been supervised by a physician who is specially trained in emergency care. Many problems require more than one evaluation for a complete diagnosis and treatment. We recommend that you schedule your follow up appointment as recommended to ensure complete treatment of you illness or injury. If you are unable to obtain follow up care and continue to have a problem, or if your condition worsens, we recommend that you return to the ED. 2. We are not able to safely determine your condition over the phone nor are we able to give sound medical advice over the phone. For these safety reasons, if you call for medical advice we will ask you to come to the ED for further evaluation. 3. If you have any questions regarding these discharge instructions please call the ED at [phone]. SAFETY INFORMATION: In the interest of safety, wellness, and injury prevention; we encourage you to wear your sealbelt, if you smoke; quite smoking, and we encourage family to use a protective helmet for bicycling and other sporting events that present an increased risk for head injury. IF YOUR SYMPTOMS WORSEN OR NEW SYMPTOMS DEVELOP, OR YOU HAVE CONCERNS ABOUT YOUR CONDITION; OR IF YOUR CONDITION WORSENS WHILE YOU ARE WAITING FOR YOUR FOLLOW UP APPOINTMENT; EITHER CONTACT YOUR PRIMARY CARE DOCTOR, THE PHYSICIAN WHOSE NAME AND NUMBER YOU WERE GIVEN, OR RETURN TO THE ED IMMEDIATELY. Scripts Potassium Chloride (KLOR-CON M20) 20 Meq Tab.er.prt 20 MEQ PO DAILY for potassium supplement for 7 Days, #7 TAB.SR 0 Refills Prov: JOSHUA HO APRN 01/22/21 JOSHUA HO APRN Jan 22, 2021 15:34
[2021-01-22 15:38] LABS: BILIRUBIN,URINE NEGATIVE (NEG); CLARITY,URINE CLEAR; COLOR,URINE YELLOW; NITRITE,URINE NEGATIVE (NEG); PROTEIN,URINE NEGATIVE (NEG-TRACE); UROBILINOGEN,URINE 0.2 mg/dL (0.2 mg/dL)
--- NOTE | 2021-01-22 15:38 | RAD ---
AP chest. HISTORY: Peripheral edema, suspect CHF AP view was taken of the chest. Patient's not taken a deep inspiration. There is linear scarring or a telectasis along the right heart border. There are no other acute infiltrates. There is no effusion. IMPRESSION: 1. Right base linear scarring or atelectasis. 2. No other acute infiltrates. Electronically signed by: Gerber Rodriguez MD (01/22/2021 3:35 PM) [facility]
[2021-01-22 15:55] LABS: BACTERIA,URINE 0 /HPF (0-FEW); RBC,URINE 0 /HPF (0-2); WBC,URINE 0 /HPF (0-4)
[2021-01-22 16:37] LABS: BASO # 0.1 x10^3/uL (0.0-0.2); BASO % 1 % (0-3); EOS # 0.2 x10^3/uL (0.0-0.7); EOS % 2 % (0-3); HEMATOCRIT 33.9 % (39.0-53.0); HEMOGLOBIN 11.1 g/dL (13.0-17.5); LYMPH # 2.9 x10^3/uL (1.0-4.8); LYMPH % 26 % (24-48); MEAN CORPUSCULAR HEMOGLOBIN 29 pg (25-35); MEAN CORPUSCULAR HGB CONC 33 g/dL (31-37); MEAN CORPUSCULAR VOLUME 87 fL (79-100); MONO # 0.5 x10^3/uL (0.0-1.1); MONO % 5 % (0-9); NEUT # 7.5 x10^3/uL (1.8-7.7); NEUT % 66 % (31-73); PLATELET COUNT 304 x10^3/uL (140-400); RED BLOOD COUNT 3.89 x10^6/uL (4.30-5.70); RED CELL DISTRIBUTION WIDTH 15.4 % (11.5-14.5); WHITE BLOOD COUNT 11.4 x10^3/uL (4.0-11.0)
[2021-01-22] MEDS ORDERED: MORPHINE SULFATE 4 MG/ML INJ. IVP ONE (17:00)
[2021-01-22 17:05] LABS: CALCIUM 7.6 mg/dL (8.5-10.1); CREATININE 1.2 mg/dL (0.7-1.3); GFR 65.2; POTASSIUM 3.3 mmol/L (3.5-5.1)
[2021-01-22 17:11] LABS: ALBUMIN 3.5 g/dL (3.4-5.0); MAGNESIUM 1.1 mg/dL (1.8-2.4); PHOSPHORUS 3.2 mg/dL (2.6-4.7); TOTAL BILIRUBIN 0.4 mg/dL (0.2-1.0); TOTAL PROTEIN 6.9 g/dL (6.4-8.2)
[2021-01-22] MEDS ORDERED: POTA-121 PO (17:54)
[2021-01-22 18:02] VITALS: BP 136/73
--- NOTE | 2021-01-23 01:11 | EKG ---
[facility] [address] [place] [address] Test Date: 2021-01-22 Test Time: 15:34:31 Pat Name: JOSHUA VÁSQUEZ Department: Room: Gender: M Health Education Director: : 1975 Requested By: JOSHUA HO Order Number: [id number] Reading MD: Kris Velasquez MD Measurements Intervals [place] Rate: 85 P: -2 ID: 168 QRS: -50 QRSD: 110 T: 55 QT: 388 QTc: 462 Interpretive Statements SINUS RHYTHM ABNORMAL LEFT AXIS DEVIATION LEFT ANTERIOR FASCICULAR BLOCK Electronically Signed On 01-23-2021 8:48:00 CDT by Kris Velasquez MD
== END 2021-01-22 18:09 | disposition home or self-care (01) ==
LOC: ER 14:04
DX: R60.0 Localized edema (principal); M79.605 Pain in left leg; M79.604 Pain in right leg; E11.9 Type 2 diabetes mellitus without complications; K21.9 Gastro-esophageal reflux disease without esophagitis; E78.00 Pure hypercholesterolemia, unspecified; I10 Essential (primary) hypertension; M10.9 Gout, unspecified
CPT/HCPCS: 36415; 71045; 80053; 81001; 82553; 83735; 83880; 84100; 84484; 85025; 93005; 96374; 99285; J2270

== ENCOUNTER 2021-07-26 14:45 | Emergency (ER) | payer BC ==
[~2021-07-26] VITALS: Ht 188 cm; Wt 150.0 kg
[~2021-07-26 14:45] MED LIST changes: +CLON0.5T PO; +CLON1PAT TD; +GUAI120L35 PO; +POTA-121 PO; +SPIR25TA5 PO; +TRAM100T10 PO; -TRAM100T2 PO
--- NOTE | 2021-07-26 15:32 | PHYS DOC ---
Past Medical History Past Medical History: Diabetes-Type II, GERD, High Cholesterol, Hypertension, Other Additional Past Medical Histor: Gout (BRENNEN JONES DO) Past Surgical History: Other Additional Past Surgical Histo: bilat knees, neck, low back, wisdom teeth, carpal tunnel. (BRENNEN JONES DO) Smoking Status: Never Smoker Alcohol Use: None Drug Use: None (BRENNEN JONES DO) Adult General Chief Complaint Chief Complaint: NECK PAIN HPI HPI Patient is a 45 year old male who presents with left side cervical neck pain and popping. Patient states he underwent gastric surgery at a bariatric surgery center 6 days earlier on the of this month. He reports coming out of surgery he was told that there was something "wrong with his pancreas" and the bariatric surgery was aborted. This has not been further worked up. He comes to the ER today however complaining of neck pain. He woke up with neck pain following his surgery. He was not informed of any accident or fall or incident which may have caused him harm or to have neck pain. Over the last week he complains of severe left-sided cervical neck pain and pain in the area of the left trapezius muscle. He feels a clicking or popping in that area as well. He has numbness that radiates down the left arm although he is unable to describe a specific dermatomal distribution. His symptoms are worse with certain movements but pain is constant. (BRENNEN JONES DO) Review of Systems Review of Systems Constitutional: Denies fever or chills Eyes: Denies change in visual acuity HENT: Denies Respiratory: Denies cough or shortness of breath Cardiovascular: No additional information GI: Denies abdominal pain : Denies Musculoskeletal: see HPI Integument: Denies rash or skin lesions Neurologic: Numbness left upper extremity as described above Endocrine: Denies polyuria All other systems were reviewed and found to be within normal limits, except as documented in this note. (BRENNEN JONES DO) Current Medications Current Medications Current Medications Medications (Trade) Dose Ordered Sig/Yamile Start Time Stop Time Status Last Admin Dose Admin Morphine Sulfate (Morphine Sulfate) 10 mg 1X ONCE 07/26/21 17:00 07/26/21 17:01 DC 07/26/21 17:08 10 MG Oxycodone/ Acetaminophen (Percocet 5/325) 1 tab 1X ONCE 07/26/21 22:15 07/26/21 22:16 DC (NADINE KESSLER DO) Allergies Allergies Allergies Coded Allergies Type Severity Reaction Last Updated Verified No Known Drug Allergies 09/21/15 No (NADINE KESSLER DO) Physical Exam Physical Exam Constitutional: Well developed, obese, moderate distress due to pain with some antalgic movements HENT: Moist mucous membranes, nares are patent Eyes: PERRLA, EOMI, conjunctiva normal Neck: Tenderness to palpate over the left paraspinal muscles of the lower cervical spine. Range of motion limited in unable to look fully to the left with range only about 45 degrees to the left. Similar to the right. Cardiovascular:Heart rate regular rhythm Lungs & Thorax: Bilateral breath sounds clear Abdomen: Soft and nontender. Well-healing incisions. There is ecchymosis over the skin. Normal-appearing postoperative abdomen Skin: Ecchymosis over abdomen Back: Normal ROM Extremities: No tenderness, no edema Neurologic: Alert and oriented X 3, 5/5 motor strength bilateral upper extremities. No change in sensation across various dermatomes of the left upper extremity. Psychologic: Affect normal (BRENNEN JONES DO) Current Patient Data Vital Signs Vital Signs Date Time Temp Pulse Resp B/P (MAP) Pulse Ox O2 Delivery O2 Flow Rate FiO2 07/26/21 22:15 18 07/26/21 18:00 77 111/63 (79) 92 07/26/21 17:08 Room Air 07/26/21 15:06 98.7 98.7 (NADINE KESSLER DO) Lab Values Laboratory Tests Test 07/26/21 16:16 White Blood Count 10.3 x10^3/uL (4.0-11.0) Red Blood Count 4.77 x10^6/uL (4.30-5.70) Hemoglobin 12.1 g/dL (13.0-17.5) L Hematocrit 38.0 % (39.0-53.0) L Mean Corpuscular Volume 80 fL (79-100) Mean Corpuscular Hemoglobin 25 pg (25-35) Mean Corpuscular Hemoglobin Concent 32 g/dL (31-37) Red Cell Distribution Width 20.0 % (11.5-14.5) H Platelet Count 415 x10^3/uL (140-400) H Neutrophils (%) (Auto) 73 % (31-73) Lymphocytes (%) (Auto) 17 % (24-48) L Monocytes (%) (Auto) 6 % (0-9) Eosinophils (%) (Auto) 4 % (0-3) H Basophils (%) (Auto) 1 % (0-3) Neutrophils # (Auto) 7.6 x10^3/uL (1.8-7.7) Lymphocytes # (Auto) 1.7 x10^3/uL (1.0-4.8) Monocytes # (Auto) 0.6 x10^3/uL (0.0-1.1) Eosinophils # (Auto) 0.4 x10^3/uL (0.0-0.7) Basophils # (Auto) 0.1 x10^3/uL (0.0-0.2) Sodium Level 137 mmol/L (136-145) Potassium Level 4.1 mmol/L (3.5-5.1) Chloride Level 102 mmol/L (98-107) Carbon Dioxide Level 27 mmol/L (21-32) Anion Gap 8 (6-14) Blood Urea Nitrogen 19 mg/dL (8-26) Creatinine 1.1 mg/dL (0.7-1.3) Estimated GFR (Cockcroft-Gault) 72.1 Glucose Level 234 mg/dL (70-99) H Calcium Level 9.1 mg/dL (8.5-10.1) Laboratory Tests 07/26/21 16:16 Laboratory Tests 07/26/21 16:16 (NADINE KESSLER DO) Lab Values Laboratory Tests Test 07/26/21 16:16 White Blood Count 10.3 x10^3/uL (4.0-11.0) Red Blood Count 4.77 x10^6/uL (4.30-5.70) Hemoglobin 12.1 g/dL (13.0-17.5) L Hematocrit 38.0 % (39.0-53.0) L Mean Corpuscular Volume 80 fL (79-100) Mean Corpuscular Hemoglobin 25 pg (25-35) Mean Corpuscular Hemoglobin Concent 32 g/dL (31-37) Red Cell Distribution Width 20.0 % (11.5-14.5) H Platelet Count 415 x10^3/uL (140-400) H Neutrophils (%) (Auto) 73 % (31-73) Lymphocytes (%) (Auto) 17 % (24-48) L Monocytes (%) (Auto) 6 % (0-9) Eosinophils (%) (Auto) 4 % (0-3) H Basophils (%) (Auto) 1 % (0-3) Neutrophils # (Auto) 7.6 x10^3/uL (1.8-7.7) Lymphocytes # (Auto) 1.7 x10^3/uL (1.0-4.8) Monocytes # (Auto) 0.6 x10^3/uL (0.0-1.1) Eosinophils # (Auto) 0.4 x10^3/uL (0.0-0.7) Basophils # (Auto) 0.1 x10^3/uL (0.0-0.2) Sodium Level 137 mmol/L (136-145) Potassium Level 4.1 mmol/L (3.5-5.1) Chloride Level 102 mmol/L (98-107) Carbon Dioxide Level 27 mmol/L (21-32) Anion Gap 8 (6-14) Blood Urea Nitrogen 19 mg/dL (8-26) Creatinine 1.1 mg/dL (0.7-1.3) Estimated GFR (Cockcroft-Gault) 72.1 Glucose Level 234 mg/dL (70-99) H Calcium Level 9.1 mg/dL (8.5-10.1) Laboratory Tests 07/26/21 16:16 Laboratory Tests 07/26/21 16:16 (BRENNEN JONES DO) EKG EKG [] (BRENNEN JONES DO) Radiology/Procedures Radiology/Procedures [] (BRENNEN JONES DO) Course & Med Decision Making Course & Med Decision Making Pertinent Labs and Imaging studies reviewed. (See chart for details) Seen and examined on arrival to his room. Has no neurodeficits on exam. His story however is concerning. He feels a popping sensation or clicking in the base of the neck. He has numbness in the left extremity. Today, we will CT scan. 17:30: CT scan returns with DJD but no other acute findings. Pain is improved a fter receiving intramuscular morphine. I did speak with neurosurgery and requested special permission to pursue MRI scan for the patient. Dr. Hamilton was on-call and approved. Discussed this plan also with the patient. He is agreeable 18:00: LESTER to Dr. Kessler (BRENNEN JONES DO) Course & Med Decision Making Discussed the case with neurosurgery after the MRI was done. MRI was reviewed. Patient will follow-up in the outpatient setting. Patient has an appointment next week. Patient be given a Medrol Dosepak and pain medication return precautions were discussed (NADINE KESSLER DO) Dragon Disclaimer Dragon Disclaimer This electronic medical record was generated, in whole or in part, using a voice recognition dictation system. (BRENNEN JONES DO) Departure Departure Impression: Primary Impression: Cervicalgia Condition: STABLE Referrals: GENARO PHILIP (PCP) BREA KUMAR MD Patient Instructions: Soft Tissue Injury of the Neck, [place] Scripts Oxycodone/Apap 5-325 (PERCOCET 5-325 MG TABLET ) 1 Each Tablet 1 TAB PO PRN Q6HRS PRN for PAIN, #12 TAB 0 Refills Prov: NADINE KESSLER DO 07/26/21 Methylprednisolone (MEDROL) 4 Mg Tab.ds.pk 1 PKG PO UD for inflammation, #1 PKG Prov: NADINE KESSLER DO 07/26/21 BRENNEN JONES DO Jul 26, 2021 15:32 NADINE KESSLER DO Jul 26, 2021 22:25
[2021-07-26 16:33] LABS: BASO # 0.1 x10^3/uL (0.0-0.2); BASO % 1 % (0-3); EOS # 0.4 x10^3/uL (0.0-0.7); EOS % 4 % (0-3); HEMOGLOBIN 12.1 g/dL (13.0-17.5); LYMPH # 1.7 x10^3/uL (1.0-4.8); LYMPH % 17 % (24-48); MEAN CORPUSCULAR HEMOGLOBIN 25 pg (25-35); MEAN CORPUSCULAR HGB CONC 32 g/dL (31-37); MEAN CORPUSCULAR VOLUME 80 fL (79-100); MONO # 0.6 x10^3/uL (0.0-1.1); MONO % 6 % (0-9); NEUT # 7.6 x10^3/uL (1.8-7.7); NEUT % 73 % (31-73); PLATELET COUNT 415 x10^3/uL (140-400); RED BLOOD COUNT 4.77 x10^6/uL (4.30-5.70); WHITE BLOOD COUNT 10.3 x10^3/uL (4.0-11.0)
[2021-07-26 16:39] LABS: CALCIUM 9.1 mg/dL (8.5-10.1); CREATININE 1.1 mg/dL (0.7-1.3); GFR 72.1; POTASSIUM 4.1 mmol/L (3.5-5.1)
[2021-07-26] MEDS ORDERED: MORPHINE SULFATE 10 MG/ML VIAL. IV ONE (16:45)
[2021-07-26] MEDS ORDERED: MORPHINE SULFATE 10 MG/ML VIAL. IM ONE (17:00)
--- NOTE | 2021-07-26 17:02 | RAD ---
Exam: CT cervical spine without contrast INDICATION: Pain, clicking cervical spine after recent surgery TECHNIQUE: Sequential axial images through the cervical spine obtained without IV contrast. Sagittal and coronal reformatted images were reconstructed from the axial data and reviewed. Exposure: One or more of the following in the visualized dose reduction techniques were utilized for this examination: 1. Automated exposure control 2. Adjustment of the MA and/or KV according to patient size 3. Use of iterative of reconstructive technique Comparisons: None FINDINGS: Visualized intracranial structures are unremarkable. Fracture through the cervical spine is not identified. Multilevel spondylotic change in cervical spine with degenerative disc disease greatest at C3-C4, C4- C5 and C5-6 and C6-C7. There is diffuse bilateral facet arthropathy greatest at C2-C3 bilaterally Visualized paraspinal soft tissues are unremarkable. 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 Electronically signed by: Elma Lares MD (07/26/2021 4:59 PM) [facility]
[2021-07-26 18:00] VITALS: BP 111/63
--- NOTE | 2021-07-26 21:19 | RAD ---
MRI of the C-spine without contrast HISTORY: Neck pain with numbness in the left upper extremity after intubation Multiple sagittal imaging the C-spine performed without contrast. There is mild reversal of normal cervical lordosis. 02 but is otherwise aligned. There is no loss of vertebral stature. There is normal marrow signal. At C3-C4 this is diffuse circumferential disc bulge causing flattening of the thecal sac and effaceme nt of CSF anterior to the cord. There is moderate narrowing of the neuroforamina bilaterally left wor se than right. At C4-C5 there is congenital fusion there is an osteophytic ridge without significant central or fora karlie stenosis. At C5-6-6 there is also congenital fusion there is a mild osteophytic ridge without narrowing. The cervical cord has normal caliber and signal. IMPRESSION: 1. 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 2. Mild reversal of the normal cervical lordosis. 3. Significant circumferential sinuses are completely effacement of CSF around the cord at the C3 and C4 level. 4. Neuroforaminal stenosis bilaterally at C3-C4. Electronically signed by: Bradly Butler III, MD (07/26/2021 9:16 PM) [facility]
[2021-07-26] MEDS ORDERED: oxyCODONE/APAP 5/325 1 TAB TABLET PO ONE ×2 (22:15→22:30)
[2021-07-26] MEDS ORDERED: OXYC1TAB15 PO (22:24)
[2021-07-26] MEDS ORDERED: METH4TAB2 PO (22:24)
[2021-07-26] MEDS ORDERED: CYCL5TAB PO (22:31)
== END 2021-07-26 23:17 | disposition home or self-care (01) ==
LOC: ER 14:45
DX: M54.2 Cervicalgia (principal); E11.9 Type 2 diabetes mellitus without complications; K21.9 Gastro-esophageal reflux disease without esophagitis; E78.00 Pure hypercholesterolemia, unspecified; I10 Essential (primary) hypertension; M10.9 Gout, unspecified
CPT/HCPCS: 36415; 72125; 72141; 80048; 85025; 96372; 99285; J2270